=== PATIENT | female | born 1995 | race Caucasian/White ===

== ENCOUNTER → 2016-06-14 | Outpatient (CLI) | payer OTHER ==
--- NOTE | 2016-06-14 14:20 | MR ---
PRE AND POSTCONTRAST ENHANCED MRI OF THE BRAIN: CLINICAL HISTORY: Headaches CONTRAST: 20 ML Multihance Comparison 10/30/2006 Multiplanar and multispin-echo imaging of the brain was performed both before and after the administr ation of contrast. The ventricles, basal cisterns and sulci overlying the cerebral convexities are within normal limits. There is no evidence for midline shift or mass effect. Acute intracranial hemorrhage or extra-axial collection is not evident. There are no abnormal areas of increased or decreased signal intensity within the brain parenchyma. Following contrast administration, there is no evidence for pathologic enhancement or enhancing mass. The paranasal sinuses and mastoid air cells are well-aerated. IMPRESSION: Unremarkable pre and postcontrast enhanced MRI of the brain.
== END | disposition home or self-care (01) ==
LOC: RADMRIMAIN 13:17
PROVIDERS: ATTEND Psychiatry & Neurology Pain Medicine
DX: R51 Headache (principal)
CPT/HCPCS: 70553; A9577

== ENCOUNTER → 2017-06-10 | Outpatient (CLI) | payer OTHER ==
[2017-06-10 12:55] VITALS: BP 161/90; PULSE 75; RESP 16; TEMP 98.1; BMI 60.3
--- NOTE | 2017-07-12 16:51 | P.PN ---
Subjective Progress Note Date: 06/10/17 DATE: 06/10/2017 CHIEF COMPLAINT: Bariatric assessment HISTORY OF PRESENT ILLNESS: Britt Albarran is a 22-year-old female who presents with lifelong morbid obesity. She has developed comorbidities including bilateral knee osteoarthritis as well as chronic lower back pain, obstructive sleep apnea as well as hypertensive heart disease. She reports persistent right upper quadrant abdominal pain. She has a family history of gallbladder disease. She has intolerance to eating any foods. She is undergoing medical supervised weight loss and is now 9 months out. She was reports a family history of gastric cancer. Her highest weight was 395 pounds. Today she comes in weighing 388 pounds. She has gained 8 pounds in 3 months. At her height of 5 foot 7.25 inches, her ideal body weight is 158 pounds. She is 230 pounds overweight. Her highest body mass index was 61.5. Today her BMI is 60.4. PAST MEDICAL HISTORY: 1. Morbid obesity. 2. Body mass index 61.5, highest. 3. Irritable bowel syndrome. 4. Obstructive sleep apnea. 5. Osteoarthritis of the hips 6. Hypertensive heart disease. 7. Gastroesophageal reflux disease 8. Anxiety. 9. Depression. 10. Migraines. 11. Overactive bladder. 12. Chronic back pain. 13. Degenerative joint disease. 14. Asthma. PAST SURGICAL HISTORY: 1. No abdominal surgeries. 2. Eustachian tubes. HOME MEDICATIONS: 1. Zoloft. 2. Ultram. 3. Zonisamide. 4. Imitrex 5. Ditropan. 6. Levora. 7. Motrin. 8. Neurontin. 9. Fioricet. ALLERGIES: 1. Codeine 2. Soy 3. Tomato 4. Center 5. Peanut SOCIAL HISTORY: No active tobacco use. Has limited financial resources. She is currently in school. FAMILY HISTORY: No family history of ulcerative colitis disease or Crohn's disease. She does have a family history of morbid obesity. She denies any lupus in her family. No reports of stomach or esophageal cancer. She has a family history of diabetes. REVIEW OF ORGAN SYSTEMS: CONSTITUTIONAL: Her highest weight was 395 pounds. Today she comes in weighing 388 pounds. She has gained 8 pounds in 3 months. At her height of 5 foot 7.25 inches, her ideal body weight is 158 pounds. She is 230 pounds overweight. Her highest body mass index was 61.5. Today her BMI is 60.4. HEENT: Denies any active troubles with hearing. No troubles with swallowing. Wears glasses. ENDOCRINE: No diabetes. Has hypothyroidism. CARDIOVASCULAR: No reports of palpitations or heart attacks or chest pain. RESPIRATORY: Has daytime somnolence including snoring and sleep apnea. No asthma. GI: Denies any bright red blood per rectum or constipation. Does have gastroesophageal reflux disease as described above. MUSCULOSKELETAL: Has lower back pain and joint pain. Has osteoarthritis of the hips and knees. NEURO: Has headaches. No seizure disorders. PSYCH: Has depression without suicidal ideation. Has anxiety. RHEUMATOLOGIC: No lupus. No rheumatoid arthritis. HEMATOLOGIC: Denies any abnormal bleeding or bruising. No personal history of DVTs. SKIN: Has panniculitis. No skin cancer. PHYSICAL EXAM: VITAL SIGNS: Height 5 foot 7.25 inches, weight 388 pounds. BMI 60.4. Vital Signs Temp 98.1 F 06/10/17 12:53 Pulse 75 06/10/17 12:53 Resp 16 06/10/17 12:53 BP 161/90 06/10/17 12:53 Pulse Ox GENERAL: Well-developed female in no acute distress. HEENT: No scleral icterus. Extraocular movements grossly intact. Hears conversational speech. No nasal drainage. NECK: Supple without lymphadenopathy. Well-healed collar incision from previous thyroidectomy. CHEST: Nonlabored respirations with equal bilateral excursions. CARDIOVASCULAR: Regular rate. Distal 2+ pulses. ABDOMEN: Obese, soft, nondistended. Tender along the right upper quadrant. MUSCULOSKELETAL: No clubbing, cyanosis. 2+ pitting edema. Gross strength 5/5 distal lower extremities. NEURO: No focal or lateralizing signs. Cranial nerves 2 through 12 grossly within normal limits. PSYCH: Appropriate affect. Alert and oriented to person, place and time. SKIN: Good skin turgor. Well perfused. Has panniculitis. LABS: Vitamin D low. EKG: Demonstrates sinus arrhythmia. EGD FINDINGS: Squamocolumnar junction 40 cm from the incisors. Diaphragmatic hiatus at 40 cm. Hill grade 3 lower esophageal valve. LA grade A erosive esophagitis. No active duodenitis. Mild superficial gastritis. PATHOLOGY: Final Pathologic Diagnosis STOMACH, BIOPSY: CHRONIC GASTRITIS. HELICOBACTER IMMUNOPEROXIDASE STAIN IS PERFORMED TO EVALUATE FOR HELICOBACTER ORGANISMS AND IS NEGATIVE (CONTROLS APPROPRIATE). ASSESSMENT: 1. Morbid obesity. 2. Body mass index 61.5 down to 60.4. 3. Irritable bowel syndrome. 4. Obstructive sleep apnea. 5. Osteoarthritis of the hips 6. Hypertensive heart disease. 7. Gastroesophageal reflux disease 8. Anxiety. 9. Depression. 10. Migraines. 11. Overactive bladder. 12. Chronic back pain. 13. Degenerative joint disease. 14. Asthma. 15. Right upper quadrant abdominal pain. 16. Family history of gallbladder disease. 17. Chronic cholecystitis. PLAN: 1. With her symptoms including right upper quadrant abdominal pain, features suspicious for chronic cholecystitis. Robotic-assisted cholecystectomy was described with benefits and risks. 2. Recommend right upper quadrant ultrasound to evaluate for gallstones. 3. DVT prophylaxis. 4. Antibiotic prophylaxis. 5. Also recommend evaluation for sleep study. Objective - Vital Signs Vital signs: Vital Signs Temp 98.1 F 06/10/17 12:53 Pulse 75 06/10/17 12:53 Resp 16 06/10/17 12:53 BP 161/90 06/10/17 12:53 Pulse Ox Intake & Output 06/09/17 06/10/17 06/10/17 18:59 06:59 18:59 Weight 176.192 kg
== END | disposition home or self-care (01) ==
LOC: BARWHC3 12:29
PROVIDERS: ATTEND Surgery Plastic and Reconstructive Surgery
DX: E66.01 Morbid (severe) obesity due to excess calories (principal); K58.9 Irritable bowel syndrome, unspecified; G47.33 Obstructive sleep apnea (adult) (pediatric); M16.0 Bilateral primary osteoarthritis of hip; I11.9 Hypertensive heart disease without heart failure; K21.9 Gastro-esophageal reflux disease without esophagitis; F41.9 Anxiety disorder, unspecified; K90.49 Malabsorption due to intolerance, not elsewhere classified; M17.0 Bilateral primary osteoarthritis of knee; F32.9 Major depressive disorder, single episode, unspecified; J45.909 Unspecified asthma, uncomplicated; G43.909 Migraine, unspecified, not intractable, without status migrainosus; N32.81 Overactive bladder; G89.29 Other chronic pain; M19.90 Unspecified osteoarthritis, unspecified site; K81.1 Chronic cholecystitis; Z83.79 Family history of other diseases of the digestive system; Z79.891 Long term (current) use of opiate analgesic; Z79.1 Long term (current) use of non-steroidal anti-inflammatories (NSAID); Z79.899 Other long term (current) drug therapy; Z68.44 Body mass index [BMI] 60.0-69.9, adult; Z88.5 Allergy status to narcotic agent; Z91.010 Allergy to peanuts; Z91.018 Allergy to other foods
CPT/HCPCS: 99211

== ENCOUNTER → 2017-06-23 | Outpatient (CLI) | payer OTHER ==
[2017-06-23 13:49] LABS: Basophils % (A) 0 %; Eosinophils # (A) 0.1 k/uL (0-0.7); Eosinophils % (A) 1 %; HCT 44.4 % (34.0-46.0); HGB 14.2 gm/dL (11.4-16.0); Lymphocytes # (A) 2.2 k/uL (1.0-4.8); Lymphocytes % (A) 29 %; MCH 30.7 pg (25.0-35.0); MCV 96.1 fL (80.0-100.0); Mean Platelet Volume 8.7; Monocytes # (A) 0.3 k/uL (0-1.0); Monocytes % (A) 4 %; Neutrophils # (A) 4.9 k/uL (1.3-7.7); Neutrophils % (A) 65 %; Platelet Count 259 k/uL (150-450); RBC 4.62 m/uL (3.80-5.40); RDW 12.1 % (11.5-15.5); WBC 7.6 k/uL (3.8-10.6)
[2017-06-23 13:55] LABS: ALT 18 U/L (9-52); AST 21 U/L (14-36); Albumin 4.4 g/dL (3.5-5.0); Alkaline Phosphatase 69 U/L (38-126); Anion Gap 14 mmol/L; Blood Urea Nitrogen 13 mg/dL (7-17); Calcium 9.8 mg/dL (8.4-10.2); Carbon Dioxide 19 mmol/L (22-30); Chloride 110 mmol/L (98-107); Glucose 83 mg/dL (74-99); Potassium 4.3 mmol/L (3.5-5.1); Sodium 143 mmol/L (137-145); Total Bilirubin 0.4 mg/dL (0.2-1.3); Total Protein 7.3 g/dL (6.3-8.2)
== END | disposition home or self-care (01) ==
LOC: LABPAT 12:55
PROVIDERS: ATTEND Surgery Plastic and Reconstructive Surgery
DX: Z01.812 Encounter for preprocedural laboratory examination (principal)
CPT/HCPCS: 36415; 80053; 85025

== ENCOUNTER 2017-06-26 11:10 | Day surgery (SDC) | payer OTHER ==
[2017-06-23 12:28] VITALS: BMI 59.5
--- NOTE | 2017-06-26 07:17 | P.GSHP ---
History of Present Illness H&P Date: 06/26/17 CHIEF COMPLAINT: Cholecystitis HISTORY OF PRESENT ILLNESS: The patient is a 22-year-old female who presents with history of epigastric including right upper quadrant abdominal pain. She underwent diagnostic studies for her gallbladder. Separately her clinical picture was consistent with cholecystitis. Now she presents for surgical intervention. PAST MEDICAL HISTORY: Please see list PAST SURGICAL HISTORY: Please see list MEDICATIONS: Please see list ALLERGIES: Denies. SOCIAL HISTORY: No illicit drug use or recent tobacco use FAMILY HISTORY: Pertinent for gallbladder disease REVIEW OF ORGAN SYSTEMS: CONSTITUTIONAL: No reports of fevers or chills. HEENT: Denies any troubles with the vision or hearing. ENDOCRINE: No reports of hypothyroidism. No diabetes. RESPIRATORY: No recent pneumonias. CARDIOVASCULAR: Denies chest pain or palpitations GI: No blood in stools or constipation. MUSCULOSKELETAL: Has occasional joint pain including back pain. NEURO: No seizure disorders or headaches. No recent stroke. PSYCH: No depression or suicidal ideation. HEMATOLOGIC: No personal or family history of DVTs or pulmonary emboli. PHYSICAL EXAM: VITAL SIGNS: Afebrile vital signs stable GENERAL: Well-developed pleasant in no acute distress. HEENT: No scleral icterus. Extraocular movements grossly intact. Moist buccal mucosa. NECK: Supple without lymphadenopathy. CHEST: Unlabored respirations. Equal bilateral excursions. CARDIOVASCULAR: Regular rate regular rhythm rhythm. Distal 2+ pulses. ABDOMEN: Soft, nondistended. Tender along the epigastrium and right upper quadrant. MUSCULOSKELETAL: No clubbing, cyanosis, or edema. NEURO: Cranial nerves II to XII within normal limits. No focal or lateralizing signs. PSYCH: Alert and oriented to person, place and time. ASSESSMENT: 1. Epigastric and right upper quadrant abdominal pain 2. Chronic cholecystitis PLAN: 1. Will need a robotic laparoscopic cholecystectomy possible open. Benefits and risks were described. 2. Heparin for DVT prophylaxis 5000 units. 3. Antibiotic prophylaxis. Past Medical History Past Medical History: Asthma Additional Past Medical History / Comment(s): migraines, DDD, IBS, overactive bladder, chronic back pain, GALLBLADDER DISORDER, SEVERAL OUTBREAKS OF ANESTHESIA History of Any Multi-Drug Resistant Organisms: MRSA Date of last positivie culture/infection: 12/23/2016 MDRO Source:: LT INNER THIGH Past Surgical History: Ear Surgery Additional Past Surgical History / Comment(s): tubes in ears, EGD Past Anesthesia/Blood Transfusion Reactions: No Reported Reaction Smoking Status: Never smoker - Past Family History Mother Family Medical History: No Reported History Medications and Allergies Home Medications Medication Instructions Recorded Confirmed Type Butalb/Acetaminophen/Caffeine 1 tab PO Q8H PRN 04/29/14 06/23/17 History [Fioricet 50-325-40] Oxybutynin Chloride [Ditropan] 5 mg PO BID 04/29/14 06/23/17 History traMADol HCl [Ultram] 50 mg PO Q6H PRN 04/29/14 06/23/17 History Zonisamide [Zonisamide] 200 mg PO HS 04/06/15 06/23/17 History Gabapentin [Neurontin] 400 mg PO TID 03/18/16 06/23/17 History Levonorgestrel-Ethin Estradiol 1 tab PO DAILY 03/18/16 06/23/17 History [Levora-28 Tablet] SUMAtriptan SUCCINATE [Imitrex] 50 mg PO BID PRN 03/18/16 06/23/17 History Ibuprofen [Motrin] 800 mg PO Q6H PRN 03/11/17 06/23/17 History Sertraline HCl [Zoloft] 200 mg PO DAILY 03/11/17 06/23/17 History Loratadine [Claritin] 10 mg PO DAILY 04/29/17 06/23/17 History QUEtiapine [SEROquel] 50 mg PO HS 04/29/17 06/23/17 History Allergies Allergy/AdvReac Type Severity Reaction Status Date / Time codeine Allergy Dyspnea Verified 06/23/17 12:20 morphine AdvReac Dyspnea Verified 06/23/17 12:20
[~2017-06-26 11:10] MED LIST: ACETAMINOPHEN TAB 500 MG TAB PO ONE; DEXAMETHASONE SOD PHOSPHATE 10 MG/ML 1 ML VIAL IV ONE; HEPARIN SODIUM,PORCINE 5,000 UNIT/ML 1 ML VIAL SQ ONE; MIDAZOLAM 2 MG/2 ML VIAL IV PRN; ONDANSETRON 4 MG/2 ML VIAL IVP ONE; SCOPOLAMINE 1.5MG/72HR PATCH TRANSDERM STA
[2017-06-26] MEDS: LACTATED RINGERS 1,000 ML IV SCH ×2 (12:15→12:28)
[2017-06-26] MEDS ORDERED: LIDOCAINE 1% 20 ML VIAL (10MG/ML) FOR IV START INTRADERMA ONE (12:24)
[2017-06-26] MEDS ORDERED: fentaNYL (PF) 50 MCG/ML 2 ML AMP IV ONE (14:40)
[2017-06-26] MEDS ORDERED: PROPOFOL 10 MG/ML 20 ML VIAL IV ONE (15:32)
[2017-06-26] MEDS ORDERED: LIDOCAINE 1% INJ 10MG/ML (20 ML MDV) ONE (15:32)
[2017-06-26] MEDS ORDERED: MIDAZOLAM 2 MG/2 ML VIAL ONE (15:32)
[2017-06-26] MEDS ORDERED: SUCCINYLCHOLINE CHLORIDE VIAL 200 MG/10 ML VIAL IV ONE (15:32)
[2017-06-26] MEDS ORDERED: GLYCOPYRROLATE 0.2 MG/ML 2 ML VIAL ONE (15:32)
[2017-06-26] MEDS ORDERED: NEOSTIGMINE 1 MG/ML 10 ML VIAL ONE (15:32)
[2017-06-26] MEDS ORDERED: ROCURONIUM BROMIDE 10 MG/ML 10 ML VIAL IV ONE (15:32)
[2017-06-26] MEDS ORDERED: KETOROLAC 30 MG/ML 1 ML VIAL ONE (15:32)
[2017-06-26] MEDS ORDERED: fentaNYL (PF) 50 MCG/ML 2 ML AMP ONE (15:32)
[2017-06-26] MEDS ORDERED: BUPIVACAINE (PF) 0.25% 30 ML VIAL SQ ONE (15:50)
[2017-06-26] MEDS ORDERED: INDOCYANINE GREEN 25 MG VIAL IV STA (15:54)
[2017-06-26] MEDS ORDERED: LACTATED RINGERS 1,000 ML IV ONE (16:43)
--- NOTE | 2017-06-26 17:08 | P.PCN ---
Date of Procedure: 06/26/17 Preoperative Diagnosis: Chronic cholecystitis Postoperative Diagnosis: Same Procedure(s) Performed: Robotics assisted cholecystectomy Anesthesia: GETA, local Surgeon: Evie Garg Estimated Blood Loss (ml): 5 Pathology: other (Gallbladder) Condition: stable Disposition: floor Operative Findings: Defects along the left upper quadrant less than 10 mm in size
[2017-06-26] MEDS: HYDROmorphone 0.5 MG/0.5 ML SYRINGE IVP PRN ×4 (17:10→17:30)
[2017-06-26 17:17] VITALS: TEMP 98.6
[2017-06-26 17:36] VITALS: RESP 16
[2017-06-26] MEDS ORDERED: HYDROcodone/APAP 5-325MG 1 EACH TAB PO ONE (18:16)
[2017-06-26 18:27] VITALS: BP 154/83; PULSE 80
--- NOTE | 2017-07-09 23:17 | P.OP ---
Date of Procedure: 06/26/17 Description of Procedure: Date of Procedure: 06/26/17 SURGEON: TEZ GARG MD BRANCH ASSOCIATE TELLER: 1. ERIK HAMILTON 2. MARTIN GARCIA PREOPERATIVE DIAGNOSES: 1. Chronic cholecystitis. 2. Family history of gallbladder disease. 3. Morbid obesity due to excess calories. 4. Body mass index 59.5 5. Right upper quadrant abdominal pain. 6. Gastroesophageal reflux disease. 7. Depression. 8. Degenerative joint disease. POSTOPERATIVE DIAGNOSES: 1. Chronic cholecystitis. 2. Family history of gallbladder disease. 3. Morbid obesity due to excess calories. 4. Body mass index 59.5 5. Right upper quadrant abdominal pain. 6. Gastroesophageal reflux disease. 7. Depression. 8. Degenerative joint disease. OPERATION: Robotic-assisted da Olga Xi laparoscopic cholecystectomy, multiport with FIREFLY ESTIMATED BLOOD LOSS: 5 mL. SPECIMENS REMOVED: Gallbladder. COMPLICATIONS: None. Condition: stable Disposition: floor OPERATIVE FINDINGS: 1. Chronic cholecystitis INDICATIONS: The patient is a 22-year-old female who presents with chronic cholelcystitis. Surgical intervention with a laparoscopic cholecystectomy was described at length including injury to the biliary tree, bleeding, infection, need for further surgery. Informed consent was obtained. Robotic assisted laparoscopic approach was described. Benefits and risks of the procedure including but not limited to bleeding, infection, injury to the biliary tree was described. Informed consent was obtained. DESCRIPTION OF PROCEDURE: Patient was brought to the operating room, placed in supine position. After general induction, the abdomen had been prepped and draped in standard sterile fashion. The robotic da Olga XI system was primed. After a timeout protocol was performed, the patient had been prepped and draped in standard sterile fashion. The patient was injected with indocyanine green. The robot was docked along the left lateral abdomen. The patient was repositioned in reverse Trendelenburg position. Please note prior to docking of the robot; however, a 5 mm 0 degrees laparoscopic trocar entry was performed along the left upper quadrant. Next, two 8 mm robotic ports were placed along the right upper abdomen. The camera 8-mm port was maintained along the epigastrium. Another 8 mm port was placed along the left upper abdominal wall after exchanging the 5 mm port. Please note that the ports were placed at least 10 to 15 cm away from the target anatomy of the gallbladder. Using a grasper for arm 3, a grasper for arm 2, including hook cautery for arm 1 , the robotic system was docked and primed as described. Instruments were interchanged by the information technology assistant including hook cautery, Bovie cautery scissors and clip appliers. I had sat at the console. Adhesions were identified along the infundibulum of the gallbladder and addressed using hook cautery. The gallbladder fundus was retracted over the dome of the liver. Initial attention was brought to the infundibulum which was gently retracted in the inferior lateral approach. Using a grasper, the cystic duct including the cystic artery was carefully skeletonized. FIREFLY was used to identify the cystic artery and cystic structures. Using a clip paper box maker 2 large PLASTIC clips were placed proximally, and 1 clip was placed distally along the cystic duct and then cauterized with the cautery. Again care was taken to avoid any injury to the biliary tree as the common bile duct was clearly visualized during this portion of dissection. Next, the cystic artery was cauterized. Electro-Bovie cautery was used to remove the gallbladder from the hepatic fossa. Hemostasis was checked and found to be adequate. The robot was undocked. I re-scrubbed into the case. Using a 10 mm Endo Catch bag via the left upper quadrant incision, the specimen was removed from the abdominal cavity. All pneumoperitoneum instruments were evacuated from the abdominal cavity. The incisions were reapproximated using 4-0 Monocryl in an interrupted subcuticular fashion. Fascial defect was less than 8 mm in size. Please note along the trocar sites, local anesthetic was placed as a field block prior to insertion of all instruments. Dermabond was applied to the skin. At the end of the procedure needle, sponge, and instrument count had been verified correct by the surgical assistant. The patient was transferred to postanesthesia care unit in stable condition. Intraoperative films were shared with the patient's family who were very pleased with the level of care. Console time 16 minutes Plan - Discharge Summary Discharge Rx Participant: Yes New Discharge Prescriptions: New HYDROcodone/APAP 5-325MG [[place] 5-325] 1 tab PO Q6HR PRN #15 tab PRN Reason: Pain Ibuprofen [Motrin] 600 mg PO Q8HR PRN #20 tab PRN Reason: Pain Continue Butalb/Acetaminophen/Caffeine [Fioricet 50-325-40] 1 tab PO Q8H PRN PRN Reason: Headache Oxybutynin Chloride [Ditropan] 5 mg PO BID traMADol HCl [Ultram] 50 mg PO Q6H PRN PRN Reason: Pain Zonisamide 200 mg PO HS Levonorgestrel-Ethin Estradiol [Levora-28 Tablet] 1 tab PO DAILY Gabapentin [Neurontin] 400 mg PO TID SUMAtriptan SUCCINATE [Imitrex] 50 mg PO BID PRN PRN Reason: Migraine Headache Ibuprofen [Motrin] 800 mg PO Q6H PRN PRN Reason: Pain Sertraline HCl [Zoloft] 200 mg PO DAILY Loratadine [Claritin] 10 mg PO DAILY QUEtiapine [SEROquel] 50 mg PO HS No Action Ergocalciferol [Vitamin D2 (DRISDOL)] 50,000 unit PO Q7D #12 cap Discharge Medication List Butalb/Acetaminophen/Caffeine [Fioricet 50-325-40] 1 tab PO Q8H PRN 04/29/14 [ History] Oxybutynin Chloride [Ditropan] 5 mg PO BID 04/29/14 [History] traMADol HCl [Ultram] 50 mg PO Q6H PRN 04/29/14 [History] Zonisamide 200 mg PO HS 04/06/15 [History] Gabapentin [Neurontin] 400 mg PO TID 03/18/16 [History] Levonorgestrel-Ethin Estradiol [Levora-28 Tablet] 1 tab PO DAILY 03/18/16 [ History] SUMAtriptan SUCCINATE [Imitrex] 50 mg PO BID PRN 03/18/16 [History] Ibuprofen [Motrin] 800 mg PO Q6H PRN 03/11/17 [History] Sertraline HCl [Zoloft] 200 mg PO DAILY 03/11/17 [History] Loratadine [Claritin] 10 mg PO DAILY 04/29/17 [History] QUEtiapine [SEROquel] 50 mg PO HS 04/29/17 [History] HYDROcodone/APAP 5-325MG [[place] 5-325] 1 tab PO Q6HR PRN #15 tab 06/26/17 [Rx] Ibuprofen [Motrin] 600 mg PO Q8HR PRN #20 tab 06/26/17 [Rx] Ergocalciferol [Vitamin D2 (DRISDOL)] 50,000 unit PO Q7D #12 cap 07/01/17 [Rx] Follow up Appointment(s)/Referral(s): Tez Garg MD [STAFF PHYSICIAN] - [facility],. [NON-STAFF] - 07/01/17 Patient Instructions/Handouts: *Surgery [facility] - (Anesthesia) Discharge Instructions Outpatient Surgery, Laparoscopic Cholecystectomy (DC) Activity/Diet/Wound Care/Special Instructions: May shower. No bath tub soaks. No lifting over 4 pounds in 1 week. Discharge Disposition: HOME SELF-CARE
== END 2017-06-26 18:57 | disposition home or self-care (01) ==
LOC: OR 11:10
PROVIDERS: ATTEND Surgery Plastic and Reconstructive Surgery
DX: K81.1 Chronic cholecystitis (principal); K21.9 Gastro-esophageal reflux disease without esophagitis; Z83.79 Family history of other diseases of the digestive system; G43.909 Migraine, unspecified, not intractable, without status migrainosus; F32.9 Major depressive disorder, single episode, unspecified; K58.9 Irritable bowel syndrome, unspecified; N32.81 Overactive bladder; G89.29 Other chronic pain; M54.9 Dorsalgia, unspecified; J45.909 Unspecified asthma, uncomplicated; E66.01 Morbid (severe) obesity due to excess calories; Z68.43 Body mass index [BMI] 50.0-59.9, adult; Z79.3 Long term (current) use of hormonal contraceptives; Z79.899 Other long term (current) drug therapy; Z88.5 Allergy status to narcotic agent
CPT/HCPCS: 47562; S2900; 86850; 86900; 86901; 88304

== ENCOUNTER → 2017-07-01 | Outpatient (CLI) | payer OTHER ==
[2017-07-01 14:22] VITALS: PULSE 85; TEMP 98.7; BMI 58.3
--- NOTE | 2017-07-01 14:55 | P.PN ---
Progress Note - Text Progress Note Date: 07/01/17 To whom it may concern: Britt Albarran is under my surgical care. She may return to school with no lifting over 10 pounds in 2 weeks. She cannot pull, mop, sweep in this time frame. Regards, Evie Garg MD
[2017-07-01 14:59] VITALS: BP 130/85
--- NOTE | 2017-07-12 16:57 | P.PN ---
Subjective Progress Note Date: 07/01/17 DATE: 07/01/2017 CHIEF COMPLAINT: Follow-up cholecystectomy HISTORY OF PRESENT ILLNESS: Britt Albarran is a 22-year-old female who is status post cholecystectomy to 2017. She reports feeling sore along her left upper quadrant. She's been doing much better since her gallbladder removal. She had the influenza. Her diarrhea has improved. She is tolerating diet. Her highest weight was 395 pounds. Today she comes in weighing 374 pounds. She has gained 13 pounds in 3 weeks. At her height of 5 foot 7.25 inches, her ideal body weight is 158 pounds. She is 216 pounds overweight. Her highest body mass index was 61.5. Today her BMI is 58.3. PHYSICAL EXAM: VITAL SIGNS: Height 5 foot 7.25 inches, weight 388 pounds. BMI 60.4. Vital Signs Temp 98.7 F 07/01/17 14:17 Pulse 85 07/01/17 14:17 Resp BP 130/85 07/01/17 14:17 Pulse Ox GENERAL: Well-developed female in no acute distress. HEENT: No scleral icterus. Extraocular movements grossly intact. Hears conversational speech. No nasal drainage. NECK: Supple without lymphadenopathy. Well-healed collar incision from previous thyroidectomy. CHEST: Nonlabored respirations with equal bilateral excursions. CARDIOVASCULAR: Regular rate. Distal 2+ pulses. ABDOMEN: Obese, soft, nondistended. Tender along the left upper quadrant. No signs of infection. Also addressed. MUSCULOSKELETAL: No clubbing, cyanosis. 2+ pitting edema. Gross strength 5/5 distal lower extremities. NEURO: No focal or lateralizing signs. Cranial nerves 2 through 12 grossly within normal limits. PSYCH: Appropriate affect. Alert and oriented to person, place and time. SKIN: Good skin turgor. Well perfused. PATHOLOGY: Chronic cholecystitis ASSESSMENT: 1. Morbid obesity. 2. Body mass index 61.5 down to 58.3 3. Irritable bowel syndrome. 4. Obstructive sleep apnea. 5. Osteoarthritis of the hips 6. Hypertensive heart disease. 7. Gastroesophageal reflux disease 8. Anxiety. 9. Depression. 10. Migraines. 11. Overactive bladder. 12. Chronic back pain. 13. Degenerative joint disease. 14. Asthma. 15. Chronic cholecystitis. PLAN: 1. Recommend recovery of weight lifting restrictions for 1-2 weeks. 2. She'll continue a medical supervised weight loss. 3. Recommend start a multivitamin. 4. Follow up upon completion of her bariatric profile. Objective - Vital Signs Vital signs: Vital Signs Temp 98.7 F 07/01/17 14:17 Pulse 85 07/01/17 14:17 Resp BP Pulse Ox Intake & Output 06/30/17 07/01/17 07/01/17 18:59 06:59 18:59 Weight 170.142 kg
== END | disposition home or self-care (01) ==
LOC: BARWHC3 13:32
PROVIDERS: ATTEND Surgery Plastic and Reconstructive Surgery
DX: E66.01 Morbid (severe) obesity due to excess calories (principal); K58.9 Irritable bowel syndrome, unspecified; G47.33 Obstructive sleep apnea (adult) (pediatric); M16.11 Unilateral primary osteoarthritis, right hip; I11.9 Hypertensive heart disease without heart failure; K21.9 Gastro-esophageal reflux disease without esophagitis; F41.9 Anxiety disorder, unspecified; G43.909 Migraine, unspecified, not intractable, without status migrainosus; N32.81 Overactive bladder; G89.29 Other chronic pain; M54.9 Dorsalgia, unspecified; J45.909 Unspecified asthma, uncomplicated; K81.9 Cholecystitis, unspecified; M16.0 Bilateral primary osteoarthritis of hip; Z68.43 Body mass index [BMI] 50.0-59.9, adult
CPT/HCPCS: 99211

== ENCOUNTER → 2017-11-10 | Outpatient (CLI) | payer OTHER ==
--- NOTE | 2017-11-10 19:11 | CONS ---
CONSULTATION This is a consultation note for sleep apnea. A 22-year-old, morbidly obese female patient who is undergoing surgical evaluation for weight loss and she is interested in bariatric surgery. The patient was referred to me knowing that she has obvious symptoms and features of obstructive sleep apnea. The patient has chronic anxiety and depression. She also has chronic pain and her sleep has been fragmented for many years and she wakes up every 30 minutes to an hour and she wakes up very tired and sleepy during the day. She typically goes to bed around 9:00 to 11:00 p.m. and she wakes up at 2:00 a.m., 4:00 a.m., 5:00 a.m. and 6:00 a.m. She sleeps around 6 or 7 hours. She snores very loudly. She stops breathing. She has excessive fatigue and tiredness during the day. She wakes up choking and occasionally gasping for air. She grinds her teeth. She has a dry mouth in the morning. She has chronic heartburn in addition. During the day, she feels tired and sleepy. She has problems with concentration, irritability, depression and anxiety and claustrophobia. She has steady weight gain over the years and she has gained more than 100 pounds over the past 10 years. She has positive family history of obstructive sleep apnea. No substance abuse. PAST MEDICAL HISTORY: Morbid obesity, depression, anxiety, panic attack, environmental allergies, chronic pain and migraine headaches and overactive bladder. PAST SURGICAL HISTORY: Includes tubes in the ears and cholecystectomy. DRUG ALLERGIES: Not known other than CODEINE. She has also allergy to PEANUTS. OUTPATIENT MEDICATION: List includes: 1. Seroquel 50 mg p.o. daily. 2. Abilify 2 mg p.o. daily. 3. Clonidine 0.1 mg once a day. 4. Ibuprofen 800 mg every 8 hours. 5. Gabapentin 600 mg p.o. daily. 6. Ranitidine 150 mg p.o. daily. 7. Tramadol 50 mg p.o. daily. 8. Loratadine 10 mg p.o. daily. 9. Zoloft 100 mg p.o. daily. 10.Oxybutynin 10 mg p.o. daily. 11.She is also on Imitrex on an as-needed basis. FAMILY HISTORY: Mother has obstructive sleep apnea. She has undergone UPPP and she has used CPAP. Her mother has also undergone bariatric surgery. REVIEW OF SYSTEMS: A 12-point review of systems was done. Positive findings are mentioned above in history of present illness. BP is 116/91, pulse 74, respirations 16, temperature is 98.6, saturation 98% on room air. Height is 5 feet 7 inches. Weight is 375, BMI 57.8. Neck size 16 inches. GENERAL APPEARANCE: Calm, comfortable. No acute distress. Head is atraumatic, normocephalic. Neck is supple. There is no JVD. No goiter or neck masses. Mallampati class IV. LUNGS: Diminished breath sounds, especially in the lung bases, otherwise clear. HEART: Sounds are regular rate and rhythm. Normal S1, S2. No S3. No murmurs. Abdomen is morbidly obese, soft, nontender. Organs cannot be adequately palpated. EXTREMITIES: Trace edema. There is no cyanosis or clubbing. NEUROLOGIC: OA x3. There are no focal neurological deficits. SKIN: Negative for any wounds or ulceration. IMPRESSION: 1. Obstructive sleep apnea clinically suspected, currently under investigation. 2. Loud snoring. 3. Morbid obesity with a BMI of 57.8. 4. There is sleep fragmentation in part related to her comorbidities which include anxiety and depression, chronic pain and her irritable bladder. This could be also partly related to underlying potential sleep apnea. This needs to be further investigated. 5. Depression. 6. Anxiety. 7. Chronic pain. 8. Maintained on narcotic agents, including tramadol and ibuprofen. 9. Migraines. 10.Overactive bladder. PLAN: Proceed with a screening polysomnogram to evaluate this patient for obstructive sleep apnea. Note that the patient has multiple other comorbidities that could fragment her sleep in general and sleep apnea could be one of these comorbidities that needs to be further investigated. Encourage weight loss. Proceed with bariatric surgery evaluation. We will continue to follow. MMODL / IJN: [id number] /
== END | disposition home or self-care (01) ==
LOC: SLEEP 15:35
PROVIDERS: ATTEND Internal Medicine Critical Care Medicine
DX: R06.83 Snoring (principal); E66.9 Obesity, unspecified; F41.9 Anxiety disorder, unspecified; F32.9 Major depressive disorder, single episode, unspecified; G89.29 Other chronic pain; G43.909 Migraine, unspecified, not intractable, without status migrainosus; N32.81 Overactive bladder; Z79.899 Other long term (current) drug therapy; Z68.43 Body mass index [BMI] 50.0-59.9, adult; Z79.1 Long term (current) use of non-steroidal anti-inflammatories (NSAID); Z79.891 Long term (current) use of opiate analgesic; Z88.5 Allergy status to narcotic agent; Z91.010 Allergy to peanuts
CPT/HCPCS: 99211

== ENCOUNTER → 2017-11-23 | Outpatient (CLI) | payer OTHER ==
[2017-11-23 14:37] VITALS: BMI 57.6
== END | disposition home or self-care (01) ==
LOC: BARWHC3 08:42
PROVIDERS: ATTEND Surgery Plastic and Reconstructive Surgery
DX: E66.01 Morbid (severe) obesity due to excess calories (principal); Z68.43 Body mass index [BMI] 50.0-59.9, adult
CPT/HCPCS: 97804

== ENCOUNTER 2018-01-02 16:08 | Emergency (ER) | payer OTHER ==
[2018-01-02 16:18] VITALS: RESP 18
[2018-01-02] MEDS ORDERED: KETOROLAC 30 MG/ML 1 ML VIAL IVP STA (16:31)
[2018-01-02] MEDS ORDERED: METOCLOPRAMIDE 5 MG/ML 2 ML VIAL IVP STA (16:31)
[2018-01-02] MEDS ORDERED: SODIUM CHLORIDE 0.9% 1,000 ML IV ONE (16:31)
[2018-01-02] MEDS ORDERED: diphenhydrAMINE 50 MG/ML 1 ML VIAL IVP STA (16:31)
--- NOTE | 2018-01-02 16:38 | ED ---
Headache HPI - General Chief Complaint: Headache Stated Complaint: migraine Time Seen by Provider: 01/02/18 16:22 Source: patient, RN notes reviewed Mode of arrival: ambulatory Limitations: no limitations - History of Present Illness Initial Comments: 22-year-old female presents emergency Department chief complaint migraine headache. Patient has chronic migraines to seek Dr. Delgado for neurology. Patient states this is her typical headache which is diffuse in nature. She states that she's taken her max dose of Imitrex and fierce that with no relief. Patient states his been 2 days of constant headache with mild nausea no vomiting. She does have some photosensitivity. Patient denies any focal weakness, neck pain, fever, chills. Patient states she has occasionally had, the hospital for her migraine headaches. Patient denies any chance . - Related Data Home Medications Medication Instructions Recorded Confirmed Butalb/Acetaminophen/Caffeine 1 tab PO Q8H PRN 04/29/14 11/23/17 [Fioricet 50-325-40] Oxybutynin Chloride [Ditropan] 5 mg PO BID 04/29/14 11/23/17 traMADol HCl [Ultram] 50 mg PO Q6H PRN 04/29/14 11/23/17 Zonisamide 200 mg PO HS 04/06/15 11/23/17 Gabapentin [Neurontin] 400 mg PO TID 03/18/16 11/23/17 SUMAtriptan SUCCINATE [Imitrex] 50 mg PO BID PRN 03/18/16 11/23/17 Ibuprofen [Motrin] 800 mg PO Q6H PRN 03/11/17 11/23/17 Sertraline HCl [Zoloft] 200 mg PO DAILY 03/11/17 11/23/17 Loratadine [Claritin] 10 mg PO DAILY 04/29/17 11/23/17 QUEtiapine [SEROquel] 50 mg PO HS 04/29/17 11/23/17 cloNIDine [Catapres-TTS] 0.1 mg PO DAILY 11/10/17 11/23/17 Previous Rx's Medication Instructions Recorded Ergocalciferol [Vitamin D2 50,000 unit PO Q7D #12 cap 07/01/17 (DRISDOL)] Allergies Allergy/AdvReac Type Severity Reaction Status Date / Time codeine Allergy Dyspnea Verified 01/02/18 16:18 morphine AdvReac Dyspnea Verified 01/02/18 16:18 Review of Systems ROS Statement: Those systems with pertinent positive or pertinent negative responses have been documented in the HPI. ROS Other: All systems not noted in ROS Statement are negative. Past Medical History Past Medical History: Asthma Additional Past Medical History / Comment(s): migraines, DDD, IBS, overactive bladder, chronic back pain, GALLBLADDER DISORDER, SEVERAL OUTBREAKS OF ANESTHESIA History of Any Multi-Drug Resistant Organisms: MRSA Date of last positivie culture/infection: 12/23/2016 MDRO Source:: LT INNER THIGH Past Surgical History: Cholecystectomy, Ear Surgery Additional Past Surgical History / Comment(s): tubes in ears, EGDlap choly Past Anesthesia/Blood Transfusion Reactions: No Reported Reaction Past Psychological History: Depression Smoking Status: Never smoker Past Alcohol Use History: None Reported Past Drug Use History: None Reported - Past Family History Mother Family Medical History: No Reported History General Exam Limitations: no limitations General appearance: alert, in no apparent distress Head exam: Present: atraumatic, normocephalic, normal inspection Eye exam: Present: normal appearance, PERRL, EOMI. Absent: scleral icterus, conjunctival injection, periorbital swelling ENT exam: Present: normal exam, normal oropharynx, mucous membranes moist, TM's normal bilaterally, normal external ear exam Neck exam: Present: normal inspection, full ROM. Absent: tenderness, meningismus, lymphadenopathy Respiratory exam: Present: normal lung sounds bilaterally. Absent: respiratory distress, wheezes, rales, rhonchi, stridor Cardiovascular Exam: Present: regular rate, normal rhythm, normal heart sounds. Absent: systolic murmur, diastolic murmur, rubs, gallop, clicks Neurological exam: Present: alert, oriented X3, CN II-XII intact, reflexes normal, other (Finger to nose intact bilaterally without overshooting). Absent : motor sensory deficit Skin exam: Present: warm, dry, intact, normal color. Absent: rash Course Vital Signs 01/02/18 16:16 Temperature 98.7 F Pulse Rate 68 Respiratory 18 Rate Blood Pressure 161/96 O2 Sat by Pulse 99 Oximetry Medical Decision Making - Medical Decision Making 22-year-old female presented for migraine headache. Patient given IV medications in which her symptoms have resolved. Patient states that she feels comfortable going home at this time and she'll follow-up with neurologist return for any worsening symptoms. Disposition Clinical Impression: Migraine Disposition: HOME SELF-CARE Condition: Stable Instructions: Acute Headache (ED) Additional Instructions: Please return to the Emergency Department if symptoms worsen or any other concerns. Is patient prescribed a controlled substance at d/c from ED?: No Referrals: Parminder Torres DO [Primary Care Provider] - 1-2 days Time of Disposition: 17:38
[2018-01-02 17:53] VITALS: BP 133/69; PULSE 59; TEMP 97.8
== END 2018-01-02 17:51 | disposition home or self-care (01) ==
LOC: EC 16:08
DX: G43.909 Migraine, unspecified, not intractable, without status migrainosus (principal); Z79.899 Other long term (current) drug therapy; Z88.5 Allergy status to narcotic agent
CPT/HCPCS: 99283; 96374; 96375 ×2; 96361; J1200; J2765; J1885

== ENCOUNTER → 2018-01-27 | Outpatient (CLI) | payer OTHER ==
--- NOTE | 2018-01-27 14:52 | P.PN ---
Subjective Progress Note Date: 01/27/18 DATE: 01/27/2018 CHIEF COMPLAINT: Bariatric assessment HISTORY OF PRESENT ILLNESS: Britt Albarran is a 22-year-old female who presents with lifelong morbid obesity. She has developed comorbidities including bilateral knee osteoarthritis, chronic lower back pain, obstructive sleep apnea as well as hypertensive heart disease. She is looking into bariatric procedure particularly gastric bypass. She has completed medical supervised weight loss. She reports doing well. She comes in with her mother. She is looking into the gastric bypass. Her highest weight was 395 pounds. Today she comes in weighing 361 pounds from 388 pounds, 8 months ago. She has lost 26 pounds in 8 months. At her height of 5 foot 7.25 inches, her ideal body weight is 158 pounds. She is 203 pounds overweight. Her highest body mass index was 61.5. Today her BMI is 56.3. PAST MEDICAL HISTORY: 1. Morbid obesity. 2. Body mass index 61.5, highest. 3. Irritable bowel syndrome. 4. Obstructive sleep apnea. 5. Osteoarthritis of the hips 6. Hypertensive heart disease. 7. Gastroesophageal reflux disease 8. Anxiety. 9. Depression. 10. Migraines. 11. Overactive bladder. 12. Chronic back pain. 13. Degenerative joint disease. 14. Asthma. PAST SURGICAL HISTORY: 1. Cholecystectomy 2. Eustachian tubes. 3. Upper endoscopy HOME MEDICATIONS: 1. Zoloft. 2. Ultram. 3. Zonisamide. 4. Imitrex 5. Ditropan. 6. Levora. 7. Motrin. 8. Neurontin. 9. Fioricet. ALLERGIES: 1. Codeine 2. Soy 3. Tomato 4. [place] 5. Peanut SOCIAL HISTORY: No active tobacco use. Has limited financial resources. She is currently in school. FAMILY HISTORY: No family history of ulcerative colitis disease or Crohn's disease. She does have a family history of morbid obesity. She denies any lupus in her family. No reports of stomach or esophageal cancer. She has a family history of diabetes. REVIEW OF ORGAN SYSTEMS: CONSTITUTIONAL: Her highest weight was 395 pounds. Today she comes in weighing 361 pounds from 388 pounds, 8 months ago. She has lost 26 pounds in 8 months. At her height of 5 foot 7.25 inches, her ideal body weight is 158 pounds. She is 203 pounds overweight. Her highest body mass index was 61.5. Today her BMI is 56.3. HEENT: Denies any active troubles with hearing. No troubles with swallowing. Wears glasses. ENDOCRINE: No diabetes. Has hypothyroidism. CARDIOVASCULAR: No reports of palpitations or heart attacks or chest pain. RESPIRATORY: Has daytime somnolence including snoring and sleep apnea. No asthma. GI: Denies any bright red blood per rectum or constipation. Does have gastroesophageal reflux disease as described above. MUSCULOSKELETAL: Has lower back pain and joint pain. Has osteoarthritis of the hips and knees. NEURO: Has headaches. No seizure disorders. PSYCH: Has depression without suicidal ideation. Has anxiety. RHEUMATOLOGIC: No lupus. No rheumatoid arthritis. HEMATOLOGIC: Denies any abnormal bleeding or bruising. No personal history of DVTs. SKIN: Has panniculitis. No skin cancer. PHYSICAL EXAM: VITAL SIGNS: Height 5 foot 7.25 inches, weight 361 pounds. BMI 56.3 Vital Signs Temp 98.5 F 01/27/18 15:05 Pulse 83 01/27/18 15:05 Resp BP 119/87 01/27/18 15:05 Pulse Ox GENERAL: Well-developed female in no acute distress. HEENT: No scleral icterus. Extraocular movements grossly intact. Hears conversational speech. No nasal drainage. NECK: Supple without lymphadenopathy. Well-healed collar incision from previous thyroidectomy. CHEST: Nonlabored respirations with equal bilateral excursions. CARDIOVASCULAR: Regular rate. Distal 2+ pulses. ABDOMEN: Obese, soft, nondistended. Tender along the right upper quadrant. MUSCULOSKELETAL: No clubbing, cyanosis. 2+ pitting edema. Gross strength 5/5 distal lower extremities. NEURO: No focal or lateralizing signs. Cranial nerves 2 through 12 grossly within normal limits. PSYCH: Appropriate affect. Alert and oriented to person, place and time. SKIN: Good skin turgor. Well perfused. Has panniculitis. ASSESSMENT: 1. Morbid obesity. 2. Body mass index 61.5 down to 56.3. 3. Irritable bowel syndrome. 4. Obstructive sleep apnea. 5. Osteoarthritis of the hips 6. Hypertensive heart disease. 7. Gastroesophageal reflux disease 8. Anxiety. 9. Depression. 10. Migraines. 11. Overactive bladder. 12. Chronic back pain. 13. Degenerative joint disease. 14. Asthma. PLAN: 1. Consent for gastric bypass described 2. Recommended dietary classes. 3. Will need type and screen 4. Robotic assisted approach described. 5. The [place] [facility] Data was also reviewed with benefits and risks as described. 6. An 8 page second-generation bariatric consent form was reviewed in detail including potential of bleeding, infection, leaks, adequate weight loss, nutritional deficiencies which he demonstrated understanding of the risks. 7. A 2 week high-protein low caloric 800 kcal diet described to address hepatomegaly. 8. Preoperative labs including complete metabolic panel and CBC with type and screen recommended. 9. DVT prophylaxis per [place] [facility]. 10. Antibiotic prophylaxis. 11. Inpatient hospitalization anticipated for more than 2 nights. 12. All questions and concerns were addressed with the patient.
[2018-01-27 15:49] VITALS: BP 119/87; PULSE 83; TEMP 98.5; BMI 56.2
== END | disposition home or self-care (01) ==
LOC: BARWHC3 13:28
PROVIDERS: ATTEND Surgery Plastic and Reconstructive Surgery
DX: E66.01 Morbid (severe) obesity due to excess calories (principal); K21.9 Gastro-esophageal reflux disease without esophagitis; M17.0 Bilateral primary osteoarthritis of knee; G89.29 Other chronic pain; M54.5 Low back pain; G47.33 Obstructive sleep apnea (adult) (pediatric); I11.9 Hypertensive heart disease without heart failure; K58.9 Irritable bowel syndrome, unspecified; M16.0 Bilateral primary osteoarthritis of hip; F41.9 Anxiety disorder, unspecified; F32.9 Major depressive disorder, single episode, unspecified; G43.909 Migraine, unspecified, not intractable, without status migrainosus; N32.81 Overactive bladder; M19.90 Unspecified osteoarthritis, unspecified site; J45.909 Unspecified asthma, uncomplicated; Z90.49 Acquired absence of other specified parts of digestive tract; Z98.890 Other specified postprocedural states; Z79.1 Long term (current) use of non-steroidal anti-inflammatories (NSAID); Z79.899 Other long term (current) drug therapy; Z79.891 Long term (current) use of opiate analgesic; Z88.5 Allergy status to narcotic agent; Z91.018 Allergy to other foods; Z68.43 Body mass index [BMI] 50.0-59.9, adult
CPT/HCPCS: 99211

== ENCOUNTER → 2018-02-02 | Outpatient (CLI) | payer OTHER ==
[2018-02-02 17:56] LABS: Basophils % (A) 0 %; Eosinophils # (A) 0.1 k/uL (0-0.7); Eosinophils % (A) 2 %; HCT 42.6 % (34.0-46.0); HGB 14.2 gm/dL (11.4-16.0); Lymphocytes # (A) 1.4 k/uL (1.0-4.8); Lymphocytes % (A) 22 %; MCH 30.9 pg (25.0-35.0); MCHC 33.3 g/dL (31.0-37.0); MCV 92.7 fL (80.0-100.0); Mean Platelet Volume 9.2; Monocytes # (A) 0.3 k/uL (0-1.0); Monocytes % (A) 4 %; Neutrophils # (A) 4.7 k/uL (1.3-7.7); Neutrophils % (A) 71 %; Platelet Count 227 k/uL (150-450); RBC 4.59 m/uL (3.80-5.40); RDW 12.1 % (11.5-15.5); WBC 6.6 k/uL (3.8-10.6)
[2018-02-02 18:06] LABS: ALT 32 U/L (9-52); AST 35 U/L (14-36); Albumin 4.4 g/dL (3.5-5.0); Alkaline Phosphatase 78 U/L (38-126); Anion Gap 12 mmol/L; Blood Urea Nitrogen 10 mg/dL (7-17); Calcium 9.8 mg/dL (8.4-10.2); Carbon Dioxide 19 mmol/L (22-30); Chloride 109 mmol/L (98-107); Glucose 92 mg/dL (74-99); Potassium 4.5 mmol/L (3.5-5.1); Sodium 140 mmol/L (137-145); Total Bilirubin 0.5 mg/dL (0.2-1.3); Total Protein 7.3 g/dL (6.3-8.2)
== END | disposition home or self-care (01) ==
LOC: LABWHC1 17:24
PROVIDERS: ATTEND Surgery Plastic and Reconstructive Surgery
DX: Z01.812 Encounter for preprocedural laboratory examination (principal)
CPT/HCPCS: 36415; 80053; 85025

== ENCOUNTER 2018-02-08 08:56 | Inpatient (IN) | payer OTHER ==
[~2018-02-08 08:56] MED LIST changes: -ACETAMINOPHEN TAB 500 MG TAB PO ONE; -DEXAMETHASONE SOD PHOSPHATE 10 MG/ML 1 ML VIAL IV ONE; -HEPARIN SODIUM,PORCINE 5,000 UNIT/ML 1 ML VIAL SQ ONE; +LACTATED RINGERS 1,000 ML IV SCH; -ONDANSETRON 4 MG/2 ML VIAL IVP ONE; +SCOPOLAMINE 1.5MG/72HR PATCH TRANSDERM ONE; -SCOPOLAMINE 1.5MG/72HR PATCH TRANSDERM STA; +fentaNYL (PF) 50 MCG/ML 2 ML AMP IV PRN
[2018-02-08] MEDS ORDERED: CHLORHEXIDINE GLUCONATE 15 ML CUP MUCOUS MEM STA (09:18)
[2018-02-08] MEDS: DEXAMETHASONE SOD PHOSPHATE 10 MG/ML 1 ML VIAL IV ONE ×2 (09:36→16:25)
[2018-02-08] MEDS: ONDANSETRON 4 MG/2 ML VIAL IVP ONE ×2 (09:36→16:26)
[2018-02-08] MEDS: PANTOPRAZOLE 40 MG/10 ML VIAL IV STA ×2 (09:40→16:27)
[2018-02-08] MEDS: ENOXAPARIN 40 MG/0.4 ML SYRINGE SQ STA ×2 (09:41→16:26)
--- NOTE | 2018-02-08 09:47 | P.GSHP ---
History of Present Illness H&P Date: 02/08/18 CHIEF COMPLAINT: Morbid Obesity HISTORY OF PRESENT ILLNESS: Britt Albarran is a 22-year-old female who presents with morbid obesity. Her highest weight was 395 pounds last year. At her height of 5 foot 7.25 inches, her ideal body weight is 158 pounds. She is 221 pounds overweight. Her highest body mass index was 61.5. As a result of her obesity, she has developed osteoarthritis of her joints including obstructive sleep apnea and hypertension. She reports being on caloric restriction for weight control with her most weight loss of 50 pounds. As a result of her obesity she has developed back pain including knee pain. She has required steroid injections to her back with minimal improvement. She comes in for evaluation for gastric bypass. PAST MEDICAL HISTORY: 1. Morbid obesity. 2. Body mass index 61.5, initial 3. Irritable bowel syndrome. 4. Obstructive sleep apnea. 5. Osteoarthritis of the hips 6. Hypertensive heart disease. 7. Gastroesophageal reflux disease 8. Anxiety. 9. Depression. 10. Migraines. 11. Overactive bladder. 12. Chronic back pain. 13. Degenerative joint disease. 14. Asthma. PAST SURGICAL HISTORY: 1. No abdominal surgeries. 2. Eustachian tubes. HOME MEDICATIONS: 1. Zoloft. 2. Ultram. 3. Zonisamide. 4. Imitrex 5. Ditropan. 6. Levora. 7. Motrin. 8. Neurontin. 9. Fioricet. ALLERGIES: 1. Codeine 2. Soy 3. Tomato 4. [place] 5. Peanut SOCIAL HISTORY: No active tobacco use. Has limited financial resources. She is currently in school. FAMILY HISTORY: No family history of ulcerative colitis disease or Crohn's disease. She does have a family history of morbid obesity. She denies any lupus in her family. No reports of stomach or esophageal cancer. She has a family history of diabetes. REVIEW OF ORGAN SYSTEMS: CONSTITUTIONAL: Her highest weight was 395 pounds last year. At her height of 5 foot 7.25 inches, her ideal body weight is 158 pounds. She is 221 pounds overweight. Her highest body mass index was 61.5. HEENT: Denies any active troubles with hearing. No troubles with swallowing. Wears glasses. ENDOCRINE: No diabetes. Has hypothyroidism. CARDIOVASCULAR: No reports of palpitations or heart attacks or chest pain. RESPIRATORY: Has daytime somnolence including snoring and sleep apnea. No asthma. GI: Denies any bright red blood per rectum or constipation. Does have gastroesophageal reflux disease as described above. MUSCULOSKELETAL: Has lower back pain and joint pain. Has osteoarthritis of the hips and knees. NEURO: Has headaches. No seizure disorders. PSYCH: Has depression without suicidal ideation. Has anxiety. RHEUMATOLOGIC: No lupus. No rheumatoid arthritis. HEMATOLOGIC: Denies any abnormal bleeding or bruising. No personal history of DVTs. SKIN: Has panniculitis. No skin cancer. PHYSICAL EXAM: VITAL SIGNS: Height 5 foot 7.25 inches, weight 379 pounds, now 353 pounds BMI 59.1, now 54.6 GENERAL: Well-developed female in no acute distress. HEENT: No scleral icterus. Extraocular movements grossly intact. Hears conversational speech. No nasal drainage. NECK: Supple without lymphadenopathy. CHEST: Nonlabored respirations with equal bilateral excursions. CARDIOVASCULAR: Regular rate. Distal 2+ pulses. ABDOMEN: Obese, soft, nontender, nondistended. MUSCULOSKELETAL: No clubbing, cyanosis. 2+ pitting edema. Gross strength 5/5 distal lower extremities. NEURO: No focal or lateralizing signs. Cranial nerves 2 through 12 grossly within normal limits. PSYCH: Appropriate affect. Alert and oriented to person, place and time. SKIN: Good skin turgor. Well perfused. Has panniculitis. ASSESSMENT: 1. Morbid obesity. 2. Body mass index 61.5, initial 3. Irritable bowel syndrome. 4. Obstructive sleep apnea. 5. Osteoarthritis of the hips 6. Hypertensive heart disease. 7. Gastroesophageal reflux disease 8. Anxiety. 9. Depression. 10. Migraines. 11. Overactive bladder. 12. Chronic back pain. 13. Degenerative joint disease. 14. Asthma. PLAN: 1. Bariatric options between a sleeve, band and a Cecil-en-Y gastric bypass were reviewed in detail. She elected for a gastric bypass. Robotic assisted approach described. 2. The [place] [facility] Data was also reviewed with benefits and risks as described. 3. An 8 page second-generation bariatric consent form was reviewed in detail including potential of bleeding, infection, leaks, adequate weight loss, nutritional deficiencies which he demonstrated understanding of the risks. 4. A 2 week high-protein low caloric 800 kcal diet described to address hepatomegaly. 5. Preoperative labs including complete metabolic panel and CBC with type and screen recommended. 6. DVT prophylaxis per [place] [facility]. 7. Antibiotic prophylaxis. 8. Inpatient hospitalization anticipated for more than 2 nights. 9. All questions and concerns were addressed with the patient. 10. Recommended dietary classes completed Past Medical History Past Medical History: Asthma Additional Past Medical History / Comment(s): migraines, DDD, IBS, overactive bladder, chronic back pain, GALLBLADDER DISORDER, SEVERAL OUTBREAKS OF ANESTHESIA History of Any Multi-Drug Resistant Organisms: MRSA Date of last positivie culture/infection: 12/23/2016 MDRO Source:: LT INNER THIGH Past Surgical History: Cholecystectomy, Ear Surgery Additional Past Surgical History / Comment(s): tubes in ears, EGDlap choly Past Anesthesia/Blood Transfusion Reactions: No Reported Reaction Smoking Status: Never smoker - Past Family History Mother Family Medical History: No Reported History Medications and Allergies Home Medications Medication Instructions Recorded Confirmed Type Butalb/Acetaminophen/Caffeine 1 tab PO Q8H PRN 04/29/14 02/08/18 History [Fioricet 50-325-40] Oxybutynin Chloride [Ditropan] 10 mg PO QAM 04/29/14 02/08/18 History traMADol HCl [Ultram] 50 - 100 mg PO TID 04/29/14 02/08/18 History Zonisamide 200 mg PO HS 04/06/15 02/08/18 History Gabapentin [Neurontin] 600 mg PO TID 03/18/16 02/08/18 History SUMAtriptan SUCCINATE [Imitrex] 50 mg PO BID PRN 03/18/16 02/08/18 History Ibuprofen [Motrin] 800 mg PO Q6H PRN 03/11/17 02/08/18 History Sertraline HCl [Zoloft] 200 mg PO DAILY 03/11/17 02/08/18 History Loratadine [Claritin] 10 mg PO DAILY 04/29/17 02/08/18 History QUEtiapine [SEROquel] 50 mg PO HS 04/29/17 02/08/18 History Ergocalciferol [Vitamin D2 50,000 unit PO Q7D #12 cap 07/01/17 02/08/18 Rx (DRISDOL)] cloNIDine [Catapres-TTS] 0.3 mg PO HS 11/10/17 02/08/18 History ARIPiprazole [Abilify] 2.5 mg PO QAM 01/27/18 02/08/18 History ARIPiprazole [Abilify] 5 mg PO HS 01/27/18 02/08/18 History Albuterol Inhaler [Ventolin Hfa 90 mcg INHALATION Q6H PRN 01/29/18 02/08/18 History Inhaler] Ranitidine HCl [Zantac] 150 mg PO BID 01/29/18 02/08/18 History [place] 1 tab PO HS 01/29/18 02/08/18 History Allergies Allergy/AdvReac Type Severity Reaction Status Date / Time codeine Allergy Dyspnea Verified 02/08/18 09:06 morphine AdvReac Dyspnea Verified 02/08/18 09:06
[2018-02-08] MEDS ORDERED: SUCCINYLCHOLINE CHLORIDE VIAL 200 MG/10 ML VIAL IV ONE (10:38)
[2018-02-08] MEDS ORDERED: fentaNYL (PF) 50 MCG/ML 2 ML AMP ONE (10:38)
[2018-02-08] MEDS ORDERED: MIDAZOLAM 2 MG/2 ML VIAL ONE (10:38)
[2018-02-08] MEDS ORDERED: KETOROLAC 30 MG/ML 1 ML VIAL ONE (10:38)
[2018-02-08] MEDS ORDERED: LIDOCAINE 1% INJ 10MG/ML (20 ML MDV) ONE (10:38)
[2018-02-08] MEDS ORDERED: PROPOFOL 10 MG/ML 20 ML VIAL IV ONE (10:38)
[2018-02-08] MEDS ORDERED: ROCURONIUM BROMIDE 10 MG/ML 10 ML VIAL IV ONE (10:38)
[2018-02-08] MEDS ORDERED: GLYCOPYRROLATE 0.2 MG/ML 2 ML VIAL ONE (10:38)
[2018-02-08] MEDS ORDERED: NEOSTIGMINE 1 MG/ML 10 ML VIAL ONE (10:38)
[2018-02-08] MEDS ORDERED: BUPIVACAIN-EPI 0.25%-1:200,000 30 ML VIAL SQ ONE (11:14)
[2018-02-08] MEDS ORDERED: LACTATED RINGERS 1,000 ML IV ONE ×2 (12:35)
--- NOTE | 2018-02-08 13:56 | P.OP ---
Date of Procedure: 02/08/18 Description of Procedure: SURGEON: TEZ SOLIS MD PREOPERATIVE DIAGNOSES: 1. Morbid obesity. 2. Body mass index 61.5, initial 3. Irritable bowel syndrome. 4. Obstructive sleep apnea. 5. Osteoarthritis of the hips 6. Hypertensive heart disease. 7. Gastroesophageal reflux disease 8. Anxiety. 9. Depression. 10. Migraines. 11. Overactive bladder. 12. Chronic back pain. 13. Degenerative joint disease. 14. Asthma. POSTOPERATIVE DIAGNOSES: 1. Morbid obesity. 2. Body mass index 61.5, initial 3. Irritable bowel syndrome. 4. Obstructive sleep apnea. 5. Osteoarthritis of the hips 6. Hypertensive heart disease. 7. Gastroesophageal reflux disease 8. Anxiety. 9. Depression. 10. Migraines. 11. Overactive bladder. 12. Chronic back pain. 13. Degenerative joint disease. 14. Asthma. OPERATION: 1. Robotic assisted da Olga Xi laparoscopic Kimberly-en-Y gastric bypass, 100 cm antecolic antegastric Kimberly limb, with 25 mm EEA. 2. Intraoperative esophagogastrojejunoscopy. ANESTHESIA: GETA and local ESTIMATED BLOOD LOSS: 20 mL SPECIMENS REMOVED: None. COMPLICATIONS: NONE. INDICATIONS: Britt Albarran is a 22-year-old female who presents with morbid obesity. Her highest weight was 395 pounds last year. At her height of 5 foot 7.25 inches, her ideal body weight is 158 pounds. She is 221 pounds overweight. Her highest body mass index was 61.5. As a result of her obesity, she has developed osteoarthritis of her joints including obstructive sleep apnea and hypertension. She comes in for evaluation for gastric bypass. Today she comes in weighing 353 pounds. She now presents to undergo robotic assisted gastric bypass. A second-generation bariatric consent form was described in detail including the possibility of protein malnutrition, leaks, gastrojejunal stricture, venous thrombosis, need for further surgery for which she demonstrated understanding. Benefits and risks of the procedure were described at length. Informed consent was obtained. DESCRIPTION: The patient was brought into the operating room theater. She was placed supine. She had received Lovenox subcutaneously for DVT prophylaxis. Additionally she Peridex oral solution as an oral decontaminant was placed per anesthesia. After general induction, the abdomen was prepped and draped in standard sterile fashion. Ioban draping was placed along the abdomen. A robotic da Olga Xi system was prepped and primed. The xiphoid to umbilicus was measured of 13 cm. Her short thorax added moderate complexity to her case. Incisions were proposed at 13 cm from the xiphoid. Proposed port sites were marked with indelible marker along the anterior axillary line bilaterally, mid clavicular line bilaterally with each port marked 10 cm from each other. The robotic stapler port was marked for the right midclavicular line including along the left midclavicular line. A 5 mm 0 degrees laparoscopic trocar entry was performed along the left upper quadrant. The abdomen was insufflated to 15 mmHg pressure, which she tolerated well. Diagnostic laparoscopy demonstrated no injury to bowel, viscera, or mesentery. Severe adhesions along the right upper quadrant and midline was identified from previous open cholecystectomy. An 8 mm camera port was placed left lateral to the umbilicus at the epigastrium , 15 cm distal to the xiphoid. Next, 12-mm robot stapler port was placed along the right mid abdomen. An 12 mm port was exchanged along the left upper quadrant. An 8 mm port was placed on the left lateral abdominal wall under direct visualization Please note that the ports were placed 18 to 20 cm away from the target anatomy of the stomach. Care was taken to check that each robotic arm was safely away from collision with the bed or the patient. At the epigastrium, a medium sized Laina liver retractor was placed under direct visualization with the [employer] Repairer Operator placed under the right shoulder of the patient. The patient was repositioned in reverse Trendelenburg position at 14-degrees after lowering the bed. The robot was docked over the patient. Using grasper for arm 3, a grasper for arm 1, including vessel sealer for arm 4 , the robotic system was docked and primed as described. Instruments were interchanged by the reference assistant including endoscissors, the needle route cdl driver, and stapler. I had sat at the console. Next, the transverse mesocolon was reflected into the upper abdomen after dividing the mesentery and preparing for the jejunojejunostomy portion of the case. The ligament of Treitz was identified and measured 60 cm antegrade and marked using 3-0 Silk. The jejunum was divided at the 60 cm point using 45-mm white loads above the suture measurement. The biliopancreatic limb was held in place. The Kimberly limb was measured 100 cm in an antegrade fashion to avoid tension along the proposed gastrojejunal anastomosis. At 100 cm along the anti-mesenteric border of the Kimberly limb, a jejunojejunostomy was proposed whereby enterotomies were created along the biliopancreatic limb including the Kimberly limb using a Bovie cautery. A stay suture of 3-0 Slik was placed to align and create the anastomosis. The enterotomies along the anti-mesenteric borders were created followed by unidirectional fire from the patient's right side using 2 - 45 mm white load [employer] technology robotic stapler. The jejunojejunostomy was found to be hemostatic. The enterotomy was closed after horizontal mattress stitch of 3-0 silk used to elevate the enterotomy followed by closure with the robotic stapler white load. The jejunal limb was temporarily tacked along the left upper quadrant. Attention was now brought to the creation of the gastrojejunostomy. Along the lesser curvature of the stomach between the second and third veins, dissection was made along the retrogastric space to allow first firing of the robotic staple. Next, along the greater curvature of the stomach window was created with direct transection of the gastric cardia from the rest of the stomach. A nasogastric tube was used to identify the proposed position of the Orvil. Blue and green loads of 45 mm staplers were used to divide the stomach to create the gastric pouch. The patient was then prepared for placement of a Orvil. The patient was Mallampati 1. A 25-mm Orvil was selected for placement by the nurse residence life director. The Orvil tubing was placed posterior to the staple line of the gastric pouch and brought out through the left inferior lateral port. I re-scrubbed into the case. The robotic arms were temporarily undocked. The Orvil was then carefully and successfully navigated with the help of the nurse residence life director into the gastric pouch. The sutures were identified and divided. The tubing was from the 25 mm anvil. As the Orvil had been placed, the blind jejunal limb was brought proximally into the upper abdomen. No torsion was found upon the Kimberly limb. No tension was identified as the limb was brought along the upper abdomen. The blind jejunal limb was previously opened using endo -scissors with cautery. The 25-mm EEA stapler was brought through the left anterior lateral port site from the left side. The EEA stapler was brought through the open jejunal limb and its needle was deployed at the antimesenteric border where the anvil were mated for approximately 1 minute upon firing. The stapler was removed after irrigating the shaft of the instrument with warm normal saline. Donuts were found to be intact and on both sides. The [employer] robot arms were then re-docked. I sat at the console. The open jejunal limb defect was closed using 45 mm white loads after releasing any tension from the blind jejunal limb. Care was taken to avoid any long blind limb to avoid candycane syndrome. Reinforcement sutures were placed along the gastrojejunal anastomosis and placed along the 9:00 and 3 o'clock position. The Sofia and jejunojejunostomy mesenteric defects were obliterated by her intra-abdominal fat. I then went to the head of the bed to perform the esophagogastrojejunoscopy and a leak test. An Olympus gastroscope was passed along the posterior oropharynx which was unremarkable for any injury to the vocal cords. The scope was passed down to the proximal portion of the pouch, whereby no active bleeding was encountered. Excellent visualization of the gastrojejunostomy anastomosis, including the Kimberly limb was encountered with endoscopic image obtained. The anastomosis was found to be patent. The gastrointestinal tract was desufflated. No evidence of intraoperative leak was encountered as the gastric pouch and anastomosis were submerged under normal saline solution. The robot was then undocked. I then went back to the bedside of the patient, whereby with coordinated effort of the reference assistant, irrigation was aspirated from the upper abdominal cavity. Tisseel was placed circumferentially over the anastomosis of the gastrojejunostomy. The fascial defect of the EEA stapler was left open given in thickness of her subcutaneous tissue and limited space in the thoracic cavity. All instruments and pneumoperitoneum were evacuated from the abdominal cavity. The port correlating with the EEA stapler device was cleansed with normal saline solution and hydrogen peroxide. The rest of incisions were reapproximated using 4-0 Monocryl in an interrupted subcuticular fashion. Local anesthetic was infiltrated along the skin for postop analgesia. Liquid glue was applied to the skin. OptiFoam dressing was placed along the EEA stapler site. At the end of the procedure, needle, sponge and instrument count had been verified correct by the surgical garment fitter. She had tolerated the procedure well and was extubated and taken to the postanesthesia unit in stable condition. Intraoperative findings were described to the patient's family who were very pleased with the level of care. Total console time 83 minutes Operative Findings: 1. Biliopancreatic limb 60 cm 2. Bypass performed using 100 cm kimberly limb secondary to avoid increased tension at 150 cm. 3. Garcia defect and jejunojejunostomy defect obliterated by moderate intra- abdominal fat. 4. Leak test negative with gastrojejunal anastomosis patent and hemostatic. 5. Robotic staplers total of 10 combined blue and green and white 45 mm used to gastric pouch 6. Reinforcement sutures were placed along the gastrojejunal anastomosis
[2018-02-08] MEDS ORDERED: ONDANSETRON 4 MG/2 ML VIAL IVP PRN (13:57)
[2018-02-08] MEDS ORDERED: NALOXONE 0.4 MG/ML 1 ML VIAL IV PRN (13:57)
[2018-02-08] MEDS: MEPERIDINE 50 MG/ML SYRINGE IVP ONE ×2 (14:21→14:40)
[2018-02-08] MEDS ORDERED: ACETAMINOPHEN IV (For NPO) 1,000 MG in EMPTY BAG 1 BAG IVPB ONE (15:00)
[2018-02-08] MEDS ORDERED: VANCOMYCIN 2,000 MG in SODIUM CHLORIDE 0.9% 500 ML IVPB SCH ×2 (16:00→18:30)
[2018-02-08] MEDS: 0.9% NACL WITH KCL 20 MEQ/L 1,000 ML IV SCH ×2 (16:38→23:16)
[2018-02-08] MEDS: diphenhydrAMINE 50 MG/ML 1 ML VIAL IVP SCH ×2 (17:09→23:16)
[2018-02-08] MEDS: HYOSCYAMINE ORAL DROPS 1.875 MG/15 ML BOTTLE PO SCH ×2 (17:10→23:09)
[2018-02-08] MEDS: SIMETHICONE 40 MG/0.6 ML DROPS 2,000 MG/30 ML BOTTLE PO SCH ×2 (17:11→23:06)
[2018-02-08] MEDS: AMPICILLIN-SULBACTAM 3 GM in SODIUM CHLORIDE 0.9% 100 ML IVPB SCH ×2 (17:11→21:17)
[2018-02-08] MEDS: ALBUTEROL NEBULIZED 2.5 MG/3 ML INHALATION SCH ×2 (17:19→20:19)
[2018-02-08] MEDS: HYDROmorphone 1 MG/ML 1 ML SYRINGE IVP PRN (17:59)
[2018-02-08] MEDS: HYDROcodone/APAP 15 ML SOLUTION PO PRN (19:55)
[2018-02-08 20:19] VITALS: BMI 54.6
[2018-02-09] MEDS: HYDROcodone/APAP 15 ML SOLUTION PO PRN ×3 (01:11→13:48)
[2018-02-09] MEDS: 0.9% NACL WITH KCL 20 MEQ/L 1,000 ML IV SCH (03:55)
[2018-02-09] MEDS: HYDROmorphone 1 MG/ML 1 ML SYRINGE IVP PRN ×2 (04:02→10:02)
[2018-02-09] MEDS: HYOSCYAMINE ORAL DROPS 1.875 MG/15 ML BOTTLE PO SCH ×2 (05:28→11:02)
[2018-02-09] MEDS: SIMETHICONE 40 MG/0.6 ML DROPS 2,000 MG/30 ML BOTTLE PO SCH ×2 (05:29→11:02)
[2018-02-09] MEDS: diphenhydrAMINE 50 MG/ML 1 ML VIAL IVP SCH ×2 (05:30→11:02)
[2018-02-09] MEDS ORDERED: VANCOMYCIN 2,000 MG in SODIUM CHLORIDE 0.9% 500 ML IVPB SCH (06:00)
[2018-02-09] MEDS ORDERED: 0.9% NACL WITH KCL 20 MEQ/L 1,000 ML IV SCH (08:00)
[2018-02-09 08:10] LABS: Anion Gap 9 mmol/L; Blood Urea Nitrogen 4 mg/dL (7-17); Calcium 8.9 mg/dL (8.4-10.2); Carbon Dioxide 22 mmol/L (22-30); Chloride 110 mmol/L (98-107); Magnesium 1.7 mg/dL (1.6-2.3); Phosphorus 3.1 mg/dL (2.5-4.5); Sodium 141 mmol/L (137-145)
[2018-02-09 08:15] LABS: Potassium 4.1 mmol/L (3.5-5.1)
[2018-02-09] MEDS: ALBUTEROL NEBULIZED 2.5 MG/3 ML INHALATION SCH ×3 (08:59→16:27)
[2018-02-09] MEDS ORDERED: ENOXAPARIN 40 MG/0.4 ML SYRINGE SQ SCH (09:00)
[2018-02-09] MEDS ORDERED: PANTOPRAZOLE 40 MG/10 ML VIAL IV SCH (09:00)
[2018-02-09 10:07] LABS: Basophils % (A) 0 %; Eosinophils # (A) 0.1 k/uL (0-0.7); Eosinophils % (A) 1 %; HCT 38.6 % (34.0-46.0); HGB 12.8 gm/dL (11.4-16.0); Lymphocytes # (A) 1.1 k/uL (1.0-4.8); Lymphocytes % (A) 9 %; MCH 30.8 pg (25.0-35.0); MCHC 33.1 g/dL (31.0-37.0); MCV 93.1 fL (80.0-100.0); Mean Platelet Volume 10.2; Monocytes # (A) 0.7 k/uL (0-1.0); Monocytes % (A) 5 %; Neutrophils # (A) 10.4 k/uL (1.3-7.7); Neutrophils % (A) 84 %; Platelet Count 210 k/uL (150-450); RBC 4.14 m/uL (3.80-5.40); RDW 12.5 % (11.5-15.5); WBC 12.4 k/uL (3.8-10.6)
--- NOTE | 2018-02-09 15:33 | P.DS ---
Providers Date of admission: 02/08/18 08:56 Expected date of discharge: 02/09/18 Attending physician: Evie Garg Primary care physician: [facility] Course: 22-year-old female who presented with morbid obesity. Patient is 221 pounds overweight. Highest BMI 61. A result of her obesity patient developed osteoarthritis, obstructive sleep apnea and hypertension. As a result of her obesity patient also developed back pain and knee pain. February 08 patient underwent Robotic assisted da Olga Xi laparoscopic Cecil-en-Y gastric bypass, 100 cm antecolic antegastric Cecil limb, with 25 mm EEA. Intraoperative esophagogastrojejunoscopy. The day of discharge patient was up ambulatory on the unit pain medication effective for pain control was felt to be appropriate to be discharged home plan would be the patient would be seen in the bariatric clinic the following morning surgical incision sites were dry abdomen soft nondistended. Room air sats are 95% heart rate in the 70s afebrile White count 12. 4 hemoglobin 12.8 electrolyte within normal limits magnesium 1.7 in which it was replaced. Patient was felt to be appropriate to be discharged Impression discharge diagnose Morbid obesity BMI 54 Initial BMI 61 Irritable bowel syndrome Obstructive sleep apnea [place] arthritis of the hips and lower back Hypertensive heart disease Migraines Depression anxiety Overactive bladder Asthma no evidence of an exacerbation Degenerative joint disease Robotic assisted da Olga Xi laparoscopic Cecil-en-Y gastric bypass, 100 cm antecolic antegastric Cecil limb, with 25 mm EEA. Done on February 08 2. Intraoperative esophagogastrojejunoscopy. The above impression and plan of care have been discussed and directed by signing physician. Yanique Rowan nurse practitioner acting as scribe for signing physician. Plan - Discharge Summary Discharge Rx Participant: Yes New Discharge Prescriptions: New HYDROcodone/APAP [Denver Elixir 7.5-325Mg/15Ml] 30 ml PO Q6HR PRN #360 solution PRN Reason: Severe Pain Bisacodyl [Dulcolax] 5 mg PO DAILY PRN #10 tablet. PRN Reason: Constipation Ondansetron Odt [Zofran Odt] 4 mg PO Q8HR PRN #9 tab PRN Reason: Nausea Simethicone 40 mg/0.6 ml Drops [Mylicon Drops] 40 mg PO PCHS PRN #30 ml PRN Reason: Gas Continue Oxybutynin Chloride [Ditropan] 10 mg PO QAM Zonisamide 200 mg PO HS Gabapentin [Neurontin] 600 mg PO TID SUMAtriptan SUCCINATE [Imitrex] 50 mg PO BID PRN PRN Reason: Migraine Headache Sertraline HCl [Zoloft] 200 mg PO DAILY Loratadine [Claritin] 10 mg PO DAILY QUEtiapine [SEROquel] 50 mg PO HS ARIPiprazole [Abilify] 2.5 mg PO QAM ARIPiprazole [Abilify] 5 mg PO HS Ranitidine HCl [Zantac] 150 mg PO BID Albuterol Inhaler [Ventolin Hfa Inhaler] 90 mcg INHALATION RT-QID PRN PRN Reason: Dyspnea cloNIDine HCL 0.3 mg PO HS Discontinued Butalb/Acetaminophen/Caffeine [Fioricet 50-325-40] 1 tab PO Q8H PRN PRN Reason: Headache traMADol HCl [Ultram] 50 - 100 mg PO TID Ibuprofen [Motrin] 800 mg PO Q6H PRN PRN Reason: Pain Ergocalciferol [Vitamin D2 (DRISDOL)] 50,000 unit PO Q7D #12 cap Setlakin 1 tab PO HS Discharge Medication List Oxybutynin Chloride [Ditropan] 10 mg PO QAM 04/29/14 [History] Zonisamide 200 mg PO HS 04/06/15 [History] Gabapentin [Neurontin] 600 mg PO TID 03/18/16 [History] SUMAtriptan SUCCINATE [Imitrex] 50 mg PO BID PRN 03/18/16 [History] Sertraline HCl [Zoloft] 200 mg PO DAILY 03/11/17 [History] Loratadine [Claritin] 10 mg PO DAILY 04/29/17 [History] QUEtiapine [SEROquel] 50 mg PO HS 04/29/17 [History] ARIPiprazole [Abilify] 2.5 mg PO QAM 01/27/18 [History] ARIPiprazole [Abilify] 5 mg PO HS 01/27/18 [History] Albuterol Inhaler [Ventolin Hfa Inhaler] 90 mcg INHALATION RT-QID PRN 01/29/18 [ History] Ranitidine HCl [Zantac] 150 mg PO BID 01/29/18 [History] cloNIDine HCL 0.3 mg PO HS 02/08/18 [History] Bisacodyl [Dulcolax] 5 mg PO DAILY PRN #10 tablet. 02/09/18 [Rx] HYDROcodone/APAP [Den[place] Elixir 7.5-325Mg/15Ml] 30 ml PO Q6HR PRN #360 solution 02/09/18 [Rx] Ondansetron Odt [Zofran Odt] 4 mg PO Q8HR PRN #9 tab 02/09/18 [Rx] Simethicone 40 mg/0.6 ml Drops [Mylicon Drops] 40 mg PO PCHS PRN #30 ml [Rx] Follow up Appointment(s)/Referral(s): [facility],. [NON-STAFF] - 02/10/18 2:00 pm Patient Instructions/Handouts: Nutrition after Bariatric Surgery (DC), Laparoscopic Sleeve Gastrectomy (DC) Activity/Diet/Wound Care/Special Instructions: Clear liquid diet until tomorrow. NO bathtub soaks. Sponge bath only. NO lifting over 4 pounds in 4 weeks. NO straws. NO carbonated beverages. Please crush, cut, or open capsule for medications greater than the size of a tic-tac. Discharge Disposition: HOME SELF-CARE
[2018-02-09 16:19] VITALS: BP 120/74; PULSE 71; RESP 12; TEMP 98.9
[2018-02-10] MEDS ORDERED: BISACODYL 5 MG TABLET.DR PO PRN (08:00)
== END 2018-02-09 16:48 | disposition home or self-care (01) | DRG 621 ==
LOC: 2ORMAIN 08:56 → 3SUR 13:45
PROVIDERS: ADMIT Surgery Plastic and Reconstructive Surgery; ATTEND Surgery Plastic and Reconstructive Surgery
PROC: 0D160ZA Bypass Stomach to Jejunum, Open Approach (ICD-10-PCS; principal; 2018-02-08 10:55)
PROC: 8E0W0CZ Robotic Assisted Procedure of Trunk Region, Open Approach (ICD-10-PCS; principal; 2018-02-08 10:55)
PROC: 0DJ08ZZ Inspection of Upper Intestinal Tract, Via Natural or Artificial Opening Endoscopic (ICD-10-PCS; principal; 2018-02-08 10:55)
DX: E66.01 Morbid (severe) obesity due to excess calories (principal); F41.9 Anxiety disorder, unspecified; F32.9 Major depressive disorder, single episode, unspecified; G43.909 Migraine, unspecified, not intractable, without status migrainosus; G47.33 Obstructive sleep apnea (adult) (pediatric); G89.29 Other chronic pain; I11.9 Hypertensive heart disease without heart failure; J45.909 Unspecified asthma, uncomplicated; K21.9 Gastro-esophageal reflux disease without esophagitis; K58.9 Irritable bowel syndrome, unspecified; M16.0 Bilateral primary osteoarthritis of hip; M47.9 Spondylosis, unspecified; N32.81 Overactive bladder; Z68.44 Body mass index [BMI] 60.0-69.9, adult; Z83.3 Family history of diabetes mellitus; Z79.1 Long term (current) use of non-steroidal anti-inflammatories (NSAID); Z79.891 Long term (current) use of opiate analgesic; Z79.899 Other long term (current) drug therapy; Z88.5 Allergy status to narcotic agent; Z91.010 Allergy to peanuts; Z91.018 Allergy to other foods; Z90.49 Acquired absence of other specified parts of digestive tract
CPT/HCPCS: 80051; 81025; 82310; 82565; 83735; 84100; 84520; 85025; 86850; 86900; 86901; 94640; 94760

== ENCOUNTER → 2018-02-10 | Outpatient (CLI) | payer OTHER ==
[2018-02-10 15:08] VITALS: BP 113/79; PULSE 88; RESP 16; TEMP 98.3; BMI 55.7
--- NOTE | 2018-02-10 16:07 | P.PN ---
Subjective Progress Note Date: 02/10/18 HPI: She reports history of chronic pain. No fevers or chills. ABDOMEN: No signs of infecton. Dressing is removed. PLAN: 1. Pain management per pain specialist 2. Abdominal binder for comfort 3. Follow-up in 1 week after start of protein shakes. Objective - Vital Signs Vital signs: Vital Signs Temp 98.3 F 02/10/18 15:05 Pulse 88 02/10/18 15:05 Resp 16 02/10/18 15:05 BP 113/79 02/10/18 15:05 Pulse Ox Intake & Output 02/09/18 02/10/18 02/10/18 18:59 06:59 18:59 Weight 162.84 kg
== END ==
LOC: BARWHC3 14:08
PROVIDERS: ATTEND Surgery Plastic and Reconstructive Surgery
DX: G89.29 Other chronic pain (principal)
CPT/HCPCS: 99211

== ENCOUNTER → 2018-02-17 | Outpatient (CLI) | payer OTHER ==
--- NOTE | 2018-02-17 15:10 | P.PN ---
Subjective Progress Note Date: 02/17/18 HPI: Her pain is controlled. She reports diarrhea from Aspartame. She is having chronic diarrhea. She is now lactose intolerance. ABDOMEN: No infection. PLAN: 1. Avoid sugar free diet. 2. She is doing well.
--- NOTE | 2018-02-17 15:14 | P.PN ---
Progress Note - Text Progress Note Date: 02/17/18 To whom it may concern: Britt Albarran may resume your pain management as she is no longer requiring post-op pain managememt. Regards, Evie Garg MD
[2018-02-17 18:20] VITALS: BP 136/84; PULSE 98; TEMP 98; BMI 54.1
== END ==
LOC: BARWHC3 13:15
PROVIDERS: ATTEND Surgery Plastic and Reconstructive Surgery
DX: K52.9 Noninfective gastroenteritis and colitis, unspecified (principal); E66.01 Morbid (severe) obesity due to excess calories
CPT/HCPCS: 97803; G0463; 99211

== ENCOUNTER → 2018-03-08 | Outpatient (CLI) | payer OTHER ==
[2018-03-08 18:38] LABS: HCT 39.5 % (34.0-46.0); HGB 13.3 gm/dL (11.4-16.0); MCHC 33.6 g/dL (31.0-37.0); MCV 92.1 fL (80.0-100.0); Mean Platelet Volume 10.7; Platelet Count 188 k/uL (150-450); RBC 4.28 m/uL (3.80-5.40); RDW 12.8 % (11.5-15.5); WBC 6.5 k/uL (3.8-10.6)
[2018-03-09 03:29] LABS: Albumin 4.2 g/dL (3.80-4.90); Albumin/Globulin Ratio 2.47 (1.20-2.10); Anion Gap 9.4 mmol/L (4.00-12.00); Calcium 9.4 mg/dL (8.7-10.3); Carbon Dioxide 23.6 mmol/L (21.6-31.8); Globulin 1.7 g/dL (2.1-3.7); Magnesium 1.6 mg/dL (1.5-2.4); Phosphorus 4.1 mg/dL (2.4-5.1); Potassium 3.8 mmol/L (3.5-5.5); Total Bilirubin 0.4 mg/dL (0.3-1.2); Total Protein 5.9 g/dL (6.2-8.2)
[2018-03-09 03:48] LABS: Iron Saturation 14.18 (12.00-45.00)
[2018-03-09 03:57] LABS: Folate, Serum 7.9 ng/mL; Vitamin D 25 Hydroxy 25.8 ng/mL (30.0-100.0)
[2018-03-09 04:38] LABS: Parathyroid Hormone Intact 38.3 pg/mL (14.0-72.0)
[2018-03-09 05:06] LABS: Hemoglobin A1C 5.2 % (4.0-6.0)
[2018-03-10 12:34] LABS: Zinc, Serum 89 ug/dL (60-130)
== END ==
LOC: LABWHC1 17:20
PROVIDERS: ATTEND Surgery Plastic and Reconstructive Surgery
DX: Z48.815 Encounter for surgical aftercare following surgery on the digestive system (principal); E66.01 Morbid (severe) obesity due to excess calories; E21.1 Secondary hyperparathyroidism, not elsewhere classified; E89.1 Postprocedural hypoinsulinemia; D50.9 Iron deficiency anemia, unspecified; K90.9 Intestinal malabsorption, unspecified; E55.9 Vitamin D deficiency, unspecified; K74.1 Hepatic sclerosis; N19 Unspecified kidney failure; K50.90 Crohn's disease, unspecified, without complications; Z98.84 Bariatric surgery status
CPT/HCPCS: 36415; 80053; 80061; 82306; 82525; 82607; 82728; 82746; 83036; 83540; 83550; 83735; 83970; 84100; 84134; 84255; 84443; 84630; 85027

== ENCOUNTER → 2018-03-10 | Outpatient (CLI) | payer OTHER ==
[2018-03-10 16:34] VITALS: BP 132/83; PULSE 70; RESP 16; TEMP 98.7; BMI 51.4
--- NOTE | 2018-03-10 17:05 | P.PN ---
Subjective Progress Note Date: 03/10/18 HPI: She reports severe panniculitis along the skin fold. She reports having the gastric bug. ABDOMEN: All incisions are healed. Panniculitis of the abdomen noted. ASSESSMENT: 1. Status gastric bypass. 2. Morbid obesity. PLAN: 1. Blood work needed 2. Continue omeprazole or zantac 3. Nystatin powder for panniculitis. 4. May re-start BCP for heavy menstrual cycles. Objective - Vital Signs Vital signs: Vital Signs Temp 98.7 F 03/10/18 16:29 Pulse 70 03/10/18 16:29 Resp 16 03/10/18 16:29 BP 132/83 03/10/18 16:29 Pulse Ox Intake & Output 03/09/18 03/10/18 03/10/18 18:59 06:59 18:59 Weight 150.139 kg
== END ==
LOC: BARWHC3 15:56
PROVIDERS: ATTEND Surgery Plastic and Reconstructive Surgery
DX: E66.01 Morbid (severe) obesity due to excess calories (principal); M79.3 Panniculitis, unspecified; Z98.84 Bariatric surgery status; Z68.43 Body mass index [BMI] 50.0-59.9, adult
CPT/HCPCS: 97803; G0463; 99211

== ENCOUNTER 2018-03-26 08:14 | Day surgery (SDC) | payer OTHER ==
[2018-03-25 13:32] VITALS: BMI 51.0
--- NOTE | 2018-03-26 07:00 | P.GSHP ---
History of Present Illness H&P Date: 03/26/18 CHIEF COMPLAINT: GERD HISTORY OF PRESENT ILLNESS: The patient is a 22-year-old female who presents reports gastroesophageal reflux disease. Upper endoscopy was offered for further evaluation and management. PAST MEDICAL HISTORY: Please see list. PAST SURGICAL HISTORY: Please see list. MEDICATIONS: Please see list. ALLERGIES: Please see list. SOCIAL HISTORY: No illicit drug use FAMILY HISTORY: No reports of Crohn disease or ulcerative colitis. REVIEW OF ORGAN SYSTEMS: CONSTITUTIONAL: No reports of fevers or chills. GI: Denies any blood in stools or constipation. PHYSICAL EXAM: VITAL SIGNS: Stable GENERAL: Well-developed and pleasant in no acute distress. HEENT: No scleral icterus. Extraocular movements grossly intact. Moist buccal mucosa. NECK: Supple without lymphadenopathy. CHEST: Unlabored respirations. Equal bilateral excursions. CARDIOVASCULAR: Regular rate and rhythm. Distal 2+ pulses. ABDOMEN: Soft, nondistended. MUSCULOSKELETAL: No clubbing, cyanosis, or edema. ASSESSMENT: 1. Gastroesophageal reflux disease PLAN: 1. Recommend proceeding with an upper endoscopy Past Medical History Past Medical History: Asthma Additional Past Medical History / Comment(s): ABD PAIN, migraines, DDD, IBS, overactive bladder, chronic back pain, History of Any Multi-Drug Resistant Organisms: MRSA Date of last positivie culture/infection: 11/08/17 MDRO Source:: LT INNER THIGH Past Surgical History: Bariatric Surgery, Cholecystectomy, Ear Surgery Additional Past Surgical History / Comment(s): tubes in ears, EGD, lap choly , laparoscopic kimberly-en-y 02-08-2018 Past Anesthesia/Blood Transfusion Reactions: No Reported Reaction Smoking Status: Never smoker - Past Family History Mother Family Medical History: No Reported History Medications and Allergies Home Medications Medication Instructions Recorded Confirmed Type Oxybutynin Chloride [Ditropan] 10 mg PO QAM 04/29/14 03/25/18 History Zonisamide 200 mg PO HS 04/06/15 03/25/18 History Gabapentin [Neurontin] 600 mg PO TID 03/18/16 03/25/18 History SUMAtriptan SUCCINATE [Imitrex] 50 mg PO BID PRN 03/18/16 03/25/18 History Sertraline HCl [Zoloft] 200 mg PO DAILY 03/11/17 03/25/18 History Loratadine [Claritin] 10 mg PO DAILY 04/29/17 03/25/18 History QUEtiapine [SEROquel] 50 mg PO HS 04/29/17 03/25/18 History ARIPiprazole [Abilify] 10 mg PO HS 01/27/18 03/25/18 History Albuterol Inhaler [Ventolin Hfa 90 mcg INHALATION RT-QID PRN 01/29/18 03/25/18 History Inhaler] Ranitidine HCl [Zantac] 150 mg PO BID 01/29/18 03/25/18 History cloNIDine HCL 0.3 mg PO HS 02/08/18 03/25/18 History Simethicone 40 mg/0.6 ml Drops 40 mg PO PCHS PRN #30 ml 02/09/18 03/25/18 Rx [Mylicon Drops] Nystatin 100,000 Unit/gm Powd 1 applic TOPICAL BID #60 powder 03/10/18 03/25/18 Rx [Mycostatin Powder] Setlakin 1 tab PO DAILY 03/25/18 History traMADol HCl [Ultram] 50 mg PO TID 03/25/18 03/25/18 History Allergies Allergy/AdvReac Type Severity Reaction Status Date / Time codeine Allergy Dyspnea Verified 03/25/18 13:23 morphine AdvReac Dyspnea Verified 03/25/18 13:23 DURMABOND AdvReac Swelling Uncoded 03/25/18 13:23
[~2018-03-26 08:14] MED LIST changes: +LIDOCAINE 1% 20 ML VIAL (10MG/ML) FOR IV START INTRADERMA PRN; -MIDAZOLAM 2 MG/2 ML VIAL IV PRN; -SCOPOLAMINE 1.5MG/72HR PATCH TRANSDERM ONE; -fentaNYL (PF) 50 MCG/ML 2 ML AMP IV PRN
[2018-03-26 08:42] VITALS: TEMP 97
[2018-03-26] MEDS ORDERED: MIDAZOLAM 2 MG/2 ML VIAL ONE (09:24)
[2018-03-26] MEDS ORDERED: fentaNYL (PF) 50 MCG/ML 2 ML AMP ONE (09:24)
[2018-03-26] MEDS ORDERED: LIDOCAINE 1% INJ 10MG/ML (20 ML MDV) ONE (09:24)
[2018-03-26] MEDS ORDERED: PROPOFOL 10 MG/ML 20 ML VIAL IV ONE (09:24)
--- NOTE | 2018-03-26 09:41 | P.PCN ---
Date of Procedure: 03/26/18 Description of Procedure: PREOPERATIVE DIAGNOSIS: Dysphagia. Epigastric abdominal pain POSTOPERATIVE DIAGNOSIS: Dysphagia. 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 SURGEON: Evie Garg MD ANESTHESIA: MAC. INDICATIONS: The patient is a 22-year-old female who presents with a history of dysphagia, gastric bypass including epigastric abdominal pain. Benefits and risks of the procedure were described. Informed consent was obtained. DESCRIPTION: The patient was brought into the endoscopy suite and laid in the left lateral decubitus position. After a timeout was confirmed, the procedure was initiated. An Olympus gastroscope was passed along the posterior oropharynx down to the distal esophagus where the squamocolumnar junction was unremarkable. The gastric pouch was entered. A gastrojejunal stricture of 7 mm was found as the adult gastroscope was 9.9 mm in size. A [employer] balloon dilator was placed through the scope. Final insufflation up to 10 mm was performed with a total of 2 minutes. The scope was advanced up to 60 cm from the incisors into the Cecil limb. The mucosa of the gastrojejunal anastomosis was intact. Acute gastrojejunal ulcer was confirmed after completion of dilation. No full-thickness injury was encountered. The GI tract was desufflated. The patient tolerated the procedure well. FINDINGS: Stricture of 7 mm encountered. Balloon dilatation to 10 mm. Acute gastrojejunal ulcer without perforation RECOMMENDATIONS: Recommend Carafate including antacid treatment. Will need repeat upper endoscopy 3 weeks. Plan - Discharge Summary New Discharge Prescriptions: No Action Oxybutynin Chloride [Ditropan] 10 mg PO QAM Zonisamide 200 mg PO HS Gabapentin [Neurontin] 600 mg PO TID SUMAtriptan SUCCINATE [Imitrex] 50 mg PO BID PRN PRN Reason: Migraine Headache Sertraline HCl [Zoloft] 200 mg PO DAILY Loratadine [Claritin] 10 mg PO DAILY QUEtiapine [SEROquel] 50 mg PO HS ARIPiprazole [Abilify] 10 mg PO HS Ranitidine HCl [Zantac] 150 mg PO BID Albuterol Inhaler [Ventolin Hfa Inhaler] 90 mcg INHALATION RT-QID PRN PRN Reason: Dyspnea cloNIDine HCL 0.3 mg PO HS Simethicone 40 mg/0.6 ml Drops [Mylicon Drops] 40 mg PO PCHS PRN #30 ml PRN Reason: Gas Nystatin 100,000 Unit/gm Powd [Mycostatin Powder] 1 applic TOPICAL BID #60 powder traMADol HCl [Ultram] 50 mg PO TID Setlakin 1 tab PO DAILY Discharge Medication List Oxybutynin Chloride [Ditropan] 10 mg PO QAM 04/29/14 [History] Zonisamide 200 mg PO HS 04/06/15 [History] Gabapentin [Neurontin] 600 mg PO TID 03/18/16 [History] SUMAtriptan SUCCINATE [Imitrex] 50 mg PO BID PRN 03/18/16 [History] Sertraline HCl [Zoloft] 200 mg PO DAILY 03/11/17 [History] Loratadine [Claritin] 10 mg PO DAILY 04/29/17 [History] QUEtiapine [SEROquel] 50 mg PO HS 04/29/17 [History] ARIPiprazole [Abilify] 10 mg PO HS 01/27/18 [History] Albuterol Inhaler [Ventolin Hfa Inhaler] 90 mcg INHALATION RT-QID PRN 01/29/18 [ History] Ranitidine HCl [Zantac] 150 mg PO BID 01/29/18 [History] cloNIDine HCL 0.3 mg PO HS 02/08/18 [History] Simethicone 40 mg/0.6 ml Drops [Mylicon Drops] 40 mg PO PCHS PRN #30 ml [Rx] Nystatin 100,000 Unit/gm Powd [Mycostatin Powder] 1 applic TOPICAL BID #60 powder 03/10/18 [Rx] Setlakin 1 tab PO DAILY 03/25/18 [History] traMADol HCl [Ultram] 50 mg PO TID 03/25/18 [History]
[2018-03-26 09:45] VITALS: RESP 16
[2018-03-26 10:07] VITALS: BP 136/81; PULSE 67
== END 2018-03-26 10:23 | disposition home or self-care (01) ==
LOC: ORWHC2ENDO 08:14
PROVIDERS: ATTEND Surgery Plastic and Reconstructive Surgery
DX: K25.3 Acute gastric ulcer without hemorrhage or perforation (principal); K31.89 Other diseases of stomach and duodenum; Z98.84 Bariatric surgery status; Z98.0 Intestinal bypass and anastomosis status; J45.909 Unspecified asthma, uncomplicated; G43.909 Migraine, unspecified, not intractable, without status migrainosus; K58.9 Irritable bowel syndrome, unspecified; N32.81 Overactive bladder; M54.9 Dorsalgia, unspecified; G89.29 Other chronic pain; Z90.49 Acquired absence of other specified parts of digestive tract; Z79.891 Long term (current) use of opiate analgesic; Z79.899 Other long term (current) drug therapy; Z88.5 Allergy status to narcotic agent; Z88.8 Allergy status to other drugs, medicaments and biological substances; Z86.14 Personal history of Methicillin resistant Staphylococcus aureus infection
CPT/HCPCS: 81025; 84703; 43245; J2250; J2001; J3010; J2704; C1726

== ENCOUNTER → 2018-04-14 | Outpatient (CLI) | payer OTHER ==
--- NOTE | 2018-04-14 15:10 | P.PN ---
Subjective Progress Note Date: 04/14/18 DATE: 04/14/2018 CHIEF COMPLAINT: Status post gastric bypass HISTORY OF PRESENT ILLNESS: Britt Albarran is a 22-year-old female is status post gastric bypass 02/08/2018. She is 2 months out. She has a horrible ulcer found on EGD. She can tolerate liquids. She is on carafate now. Her highest weight was 395 pounds. Today she comes in weighing 304 pounds from 325 pounds, 3 weeks ago. She has lost 22 pounds in 3 weeks. At her height of 5 foot 7.25 inches, her ideal body weight is 158 pounds. Total lifetime weight loss is 91 pounds. Her percent excess weight loss is 39 %. Her highest body mass index was 61.5. Today her BMI is 47.3 PHYSICAL EXAM: VITAL SIGNS: Height 5 foot 7.25 inches, weight 304 pounds. BMI 47.3 Vital Signs Temp 98.4 F 04/14/18 15:00 Pulse 67 04/14/18 15:00 Resp BP 134/72 04/14/18 15:00 Pulse Ox GENERAL: Well-developed female in no acute distress. HEENT: No scleral icterus. Extraocular movements grossly intact. Hears conversational speech. No nasal drainage. NECK: Supple without lymphadenopathy. CHEST: Nonlabored respirations with equal bilateral excursions. CARDIOVASCULAR: Regular rate. Distal 2+ pulses. ABDOMEN: Epigastric tenderness. Soft, nondistended. No infection. MUSCULOSKELETAL: No clubbing, cyanosis. NEURO: No focal or lateralizing signs. Cranial nerves 2 through 12 grossly within normal limits. PSYCH: Appropriate affect. Alert and oriented to person, place and time. SKIN: Good skin turgor. Well perfused. ASSESSMENT: 1. Morbid obesity. 2. Body mass index 61.5 down to 47.3 3. Irritable bowel syndrome. 4. Obstructive sleep apnea. 5. Osteoarthritis of the hips 6. Hypertensive heart disease. 7. Gastroesophageal reflux disease 8. Anxiety. 9. Depression. 10. Migraines. 11. Overactive bladder. 12. Chronic back pain. 13. Degenerative joint disease. 14. Asthma. 15. Status post gastric bypass 16. Epigastric pain 17. Gastrojejunal ulcer PLAN: 1. She has just got her Carafate 2. She will need 4 weeks of treatment 3. She will need repeat EGD in May 2018
[2018-04-14 15:16] VITALS: BP 134/72; PULSE 67; TEMP 98.4; BMI 47.2
== END | disposition home or self-care (01) ==
LOC: BARWHC3 14:11
PROVIDERS: ATTEND Surgery Plastic and Reconstructive Surgery
DX: E66.01 Morbid (severe) obesity due to excess calories (principal); K28.9 Gastrojejunal ulcer, unspecified as acute or chronic, without hemorrhage or perforation; R63.4 Abnormal weight loss; K58.9 Irritable bowel syndrome, unspecified; G47.33 Obstructive sleep apnea (adult) (pediatric); M16.0 Bilateral primary osteoarthritis of hip; I11.9 Hypertensive heart disease without heart failure; K21.9 Gastro-esophageal reflux disease without esophagitis; F41.9 Anxiety disorder, unspecified; F32.9 Major depressive disorder, single episode, unspecified; G43.909 Migraine, unspecified, not intractable, without status migrainosus; N32.81 Overactive bladder; G89.29 Other chronic pain; M54.9 Dorsalgia, unspecified; M19.90 Unspecified osteoarthritis, unspecified site; J45.909 Unspecified asthma, uncomplicated; Z98.84 Bariatric surgery status; Z68.42 Body mass index [BMI] 45.0-49.9, adult
CPT/HCPCS: 99211

== ENCOUNTER 2018-05-10 23:13 | Emergency (ER) | payer OTHER ==
[2018-05-10 23:20] VITALS: TEMP 98.2
[2018-05-10] MEDS ORDERED: SODIUM CHLORIDE 0.9% 2,000 ML IV STA (23:30)
[2018-05-10] MEDS ORDERED: ONDANSETRON 4 MG/2 ML VIAL IVP STA (23:30)
--- NOTE | 2018-05-11 00:08 | ED ---
Nausea/Vomiting/Diarrhea HPI - General Chief complaint: Nausea/Vomiting/Diarrhea Stated complaint: Vertigo,vomiting Time Seen by Provider: 05/10/18 23:30 Source: patient, family, RN notes reviewed Mode of arrival: ambulatory Limitations: no limitations - History of Present Illness Initial comments: 22-year-old female presents emergency Department chief complaint abdominal pain , nausea vomiting diarrhea. Patient states that she's had 3 days of vomiting diarrhea. Patient also complains of feeling very dizzy, worse with movement and lightheaded. Patient states that she had a gastric bypass by Dr. Garg February 2018. Patient states that her pain is diffuse from her vomiting. Patient has no dysuria no hematuria denies any chance . Denies any known sick contacts. - Related Data Home Medications Medication Instructions Recorded Confirmed Oxybutynin Chloride [Ditropan] 10 mg PO QAM 04/29/14 04/14/18 Zonisamide 200 mg PO HS 04/06/15 04/14/18 Gabapentin [Neurontin] 600 mg PO TID 03/18/16 04/14/18 SUMAtriptan SUCCINATE [Imitrex] 50 mg PO BID PRN 03/18/16 04/14/18 Sertraline HCl [Zoloft] 200 mg PO DAILY 03/11/17 04/14/18 Loratadine [Claritin] 10 mg PO DAILY 04/29/17 04/14/18 QUEtiapine [SEROquel] 50 mg PO HS 04/29/17 04/14/18 ARIPiprazole [Abilify] 10 mg PO HS 01/27/18 04/14/18 Albuterol Inhaler [Ventolin Hfa 90 mcg INHALATION RT-QID PRN 01/29/18 04/14/18 Inhaler] cloNIDine HCL 0.3 mg PO HS 02/08/18 04/14/18 Setlakin 1 tab PO DAILY 03/25/18 traMADol HCl [Ultram] 50 mg PO TID 03/25/18 04/14/18 Previous Rx's Medication Instructions Recorded Simethicone 40 mg/0.6 ml Drops 40 mg PO PCHS PRN #30 ml 02/09/18 [Mylicon Drops] Nystatin 100,000 Unit/gm Powd 1 applic TOPICAL BID #60 powder 03/10/18 [Mycostatin Powder] Omeprazole 40 mg PO DAILY #90 capsule. 03/26/18 Sucralfate [Carafate] 1 gm PO BID #560 ml 03/26/18 Ondansetron Odt [Zofran Odt] 4 mg PO Q8HR PRN #10 tab 05/11/18 Allergies Allergy/AdvReac Type Severity Reaction Status Date / Time codeine Allergy Dyspnea Verified 05/10/18 23:20 morphine AdvReac Dyspnea Verified 05/10/18 23:20 DURMABOND AdvReac Swelling Uncoded 05/10/18 23:20 Review of Systems ROS Statement: Those systems with pertinent positive or pertinent negative responses have been documented in the HPI. ROS Other: All systems not noted in ROS Statement are negative. Past Medical History Past Medical History: Asthma Additional Past Medical History / Comment(s): ABD PAIN, migraines, DDD, IBS, overactive bladder, chronic back pain, gastrojejunal ulcer (dx 03-26-18) History of Any Multi-Drug Resistant Organisms: MRSA Date of last positivie culture/infection: 11/08/17 MDRO Source:: LT INNER THIGH Past Surgical History: Bariatric Surgery, Cholecystectomy, Ear Surgery Additional Past Surgical History / Comment(s): tubes in ears, EGD, lap choly , laparoscopic kimberly-en-y 02-08-2018 Past Anesthesia/Blood Transfusion Reactions: No Reported Reaction Past Psychological History: Depression Smoking Status: Never smoker Past Alcohol Use History: None Reported Past Drug Use History: None Reported - Past Family History Mother Family Medical History: No Reported History General Exam Limitations: no limitations General appearance: alert, in no apparent distress Head exam: Present: atraumatic, normocephalic, normal inspection Eye exam: Present: normal appearance, PERRL, EOMI. Absent: scleral icterus, conjunctival injection, periorbital swelling ENT exam: Present: normal oropharynx Neck exam: Present: normal inspection. Absent: tenderness, meningismus, lymphadenopathy Respiratory exam: Present: normal lung sounds bilaterally. Absent: respiratory distress, wheezes, rales, rhonchi, stridor Cardiovascular Exam: Present: regular rate, normal rhythm, normal heart sounds. Absent: systolic murmur, diastolic murmur, rubs, gallop, clicks GI/Abdominal exam: Present: soft, tenderness (Mild diffuse), normal bowel sounds. Absent: distended, guarding, rebound, rigid Psychiatric exam: Present: normal affect, normal mood Course Vital Signs 05/10/18 05/11/18 23:15 02:59 Temperature 98.2 F Pulse Rate 78 61 Respiratory 20 16 Rate Blood Pressure 151/102 147/95 O2 Sat by Pulse 99 100 Oximetry Medical Decision Making - Medical Decision Making 22-year-old female presented from for nausea vomiting dizziness. Patient suddenly mildly dehydrated. She was hydrated with 2 L of fluid, patient did have lab work and CT of her abdomen which is negative for acute process. Patient will be discharged with antibiotics and follow-up with her general surgeon. Return parameters were discussed. - Lab Data Result diagrams: 05/11/18 03:00 05/11/18 03:00 Lab Results 05/11/18 05/11/18 05/11/18 Range/Units 00:10 00:10 03:00 WBC 6.8 (3.8-10.6) k/uL RBC 4.98 (3.80-5.40) m/uL Hgb 15.0 (11.4-16.0) gm/dL Hct 46.3 H (34.0-46.0) % MCV 92.8 (80.0-100.0) fL MCH 30.2 (25.0-35.0) pg MCHC 32.5 (31.0-37.0) g/dL RDW 13.9 (11.5-15.5) % Plt Count 188 (150-450) k/uL Sodium (137-145) mmol/L Potassium (3.5-5.1) mmol/L Chloride (98-107) mmol/L Carbon Dioxide (22-30) mmol/L Anion Gap mmol/L BUN (7-17) mg/dL Creatinine (0.52-1.04) mg/dL Est GFR (CKD-EPI)AfAm (>60 ml/min/1.73 sqM) Est GFR (CKD-EPI)NonAf (>60 ml/min/1.73 sqM) Glucose (74-99) mg/dL Calcium (8.4-10.2) mg/dL Magnesium (1.6-2.3) mg/dL Total Bilirubin (0.2-1.3) mg/dL AST (14-36) U/L ALT (9-52) U/L Alkaline Phosphatase (38-126) U/L Total Protein (6.3-8.2) g/dL Albumin (3.5-5.0) g/dL Lipase (23-300) U/L Urine Color Dark Yellow Urine Appearance Cloudy H (Clear) Urine pH 6.5 (5.0-8.0) Ur Specific [place] 1.027 (1.001-1.035) Urine Protein 1+ H (Negative) Urine Glucose (UA) Negative (Negative) Urine Ketones 1+ H (Negative) Urine Blood Moderate H (Negative) Urine Nitrite Negative (Negative) Urine Bilirubin 2+ H (Negative) Urine Urobilinogen 8.0 (<2.0) mg/dL Ur Leukocyte Esterase Moderate H (Negative) Urine RBC 29 H (0-5) /hpf Urine WBC 16 H (0-5) /hpf Ur Squamous Epith Cells 15 H (0-4) /hpf Urine Bacteria Rare H (None) /hpf Urine Mucus Many H (None) /hpf Urine HCG, Qual Not Detected (Not Detectd) 05/11/18 Range/Units 03:00 WBC (3.8-10.6) k/uL RBC (3.80-5.40) m/uL Hgb (11.4-16.0) gm/dL Hct (34.0-46.0) % MCV (80.0-100.0) fL MCH (25.0-35.0) pg MCHC (31.0-37.0) g/dL RDW (11.5-15.5) % Plt Count (150-450) k/uL Sodium 141 (137-145) mmol/L Potassium 3.3 L (3.5-5.1) mmol/L Chloride 103 (98-107) mmol/L Carbon Dioxide 24 (22-30) mmol/L Anion Gap 14 mmol/L BUN 5 L (7-17) mg/dL Creatinine 0.62 (0.52-1.04) mg/dL Est GFR (CKD-EPI)AfAm >90 (>60 ml/min/1.73 sqM) Est GFR (CKD-EPI)NonAf >90 (>60 ml/min/1.73 sqM) Glucose 99 (74-99) mg/dL Calcium 10.1 (8.4-10.2) mg/dL Magnesium 1.8 (1.6-2.3) mg/dL Total Bilirubin 0.8 (0.2-1.3) mg/dL AST 41 H (14-36) U/L ALT 87 H (9-52) U/L Alkaline Phosphatase 100 (38-126) U/L Total Protein 7.6 (6.3-8.2) g/dL Albumin 4.6 (3.5-5.0) g/dL Lipase 257 (23-300) U/L Urine Color Urine Appearance (Clear) Urine pH (5.0-8.0) Ur Specific [place] (1.001-1.035) Urine Protein (Negative) Urine Glucose (UA) (Negative) Urine Ketones (Negative) Urine Blood (Negative) Urine Nitrite (Negative) Urine Bilirubin (Negative) Urine Urobilinogen (<2.0) mg/dL Ur Leukocyte Esterase (Negative) Urine RBC (0-5) /hpf Urine WBC (0-5) /hpf Ur Squamous Epith Cells (0-4) /hpf Urine Bacteria (None) /hpf Urine Mucus (None) /hpf Urine HCG, Qual (Not Detectd) Disposition Clinical Impression: Gastroenteritis, Vertigo Disposition: HOME SELF-CARE Condition: Stable Instructions: Acute Nausea and Vomiting (ED) Additional Instructions: Please return to the Emergency Department if symptoms worsen or any other concerns. Prescriptions: Ondansetron Odt [Zofran Odt] 4 mg PO Q8HR PRN #10 tab PRN Reason: Nausea Is patient prescribed a controlled substance at d/c from ED?: No Referrals: Parminder Torres DO [Primary Care Provider] - 1-2 days Time of Disposition: 04:06
[2018-05-11] MEDS ORDERED: IOPAMIDOL-300 CONTRAST 30 ML VIAL (ORAL USE) PO PRN (00:19)
[2018-05-11 00:42] LABS: Appearance,Urine Cloudy (Clear); Bacteria,Urine Rare /hpf; Bilirubin,Urine 2+ (Negative); Blood,Urine Moderate (Negative); Color,Urine Dark Yellow; Glucose,Urine (UA) Negative (Negative); Ketones,Urine 1+ (Negative); Leukocyte Esterase,Urine Moderate (Negative); Mucus,Urine Many /hpf; Nitrite,Urine Negative (Negative); PH, Urine 6.5 (5.0-8.0); Protein,Urine 1+ (Negative); RBC,Urine 29 /hpf (0-5); Specific Gravity,Urine 1.027 (1.001-1.035); Squamous Epithelial Cell,Urine 15 /hpf (0-4); WBC,Urine 16 /hpf (0-5)
[2018-05-11 03:00] VITALS: PULSE 61; RESP 16
[2018-05-11 03:16] LABS: Basophils % (A) 0 %; Eosinophils # (A) 0.1 k/uL (0-0.7); Eosinophils % (A) 1 %; HCT 46.3 % (34.0-46.0); Lymphocytes # (A) 1.7 k/uL (1.0-4.8); Lymphocytes % (A) 25 %; MCH 30.2 pg (25.0-35.0); MCHC 32.5 g/dL (31.0-37.0); MCV 92.8 fL (80.0-100.0); Mean Platelet Volume 10.4; Monocytes # (A) 0.3 k/uL (0-1.0); Monocytes % (A) 5 %; Neutrophils # (A) 4.6 k/uL (1.3-7.7); Neutrophils % (A) 68 %; Platelet Count 188 k/uL (150-450); RBC 4.98 m/uL (3.80-5.40); RDW 13.9 % (11.5-15.5); WBC 6.8 k/uL (3.8-10.6)
[2018-05-11 03:26] LABS: ALT 87 U/L (9-52); AST 41 U/L (14-36); Albumin 4.6 g/dL (3.5-5.0); Alkaline Phosphatase 100 U/L (38-126); Anion Gap 14 mmol/L; Blood Urea Nitrogen 5 mg/dL (7-17); Calcium 10.1 mg/dL (8.4-10.2); Carbon Dioxide 24 mmol/L (22-30); Chloride 103 mmol/L (98-107); Glucose 99 mg/dL (74-99); Lipase 257 U/L (23-300); Magnesium 1.8 mg/dL (1.6-2.3); Potassium 3.3 mmol/L (3.5-5.1); Sodium 141 mmol/L (137-145); Total Bilirubin 0.8 mg/dL (0.2-1.3); Total Protein 7.6 g/dL (6.3-8.2)
--- NOTE | 2018-05-11 03:28 | CT ---
EXAMINATION TYPE: CT abdomen pelvis w con DATE OF EXAM: 05/11/2018 COMPARISON: None HISTORY: abd pain CT DLP: 1640.8 mGycm Automated exposure control for dose reduction was used. TECHNIQUE: Helical acquisition of images was performed from the lung bases through the pelvis. CONTRAST: Performed with Oral Contrast and with IV Contrast, patient injected with 100 mL of Isovue 300. FINDINGS: Lung bases are clear. There is no pleural effusion. Heart size is normal. There is no pericardial eff usion. Liver and spleen appear normal. Pancreas appears normal. There are clips from bariatric surgery. Ther e is a 1 cm cyst in the right lobe of the liver. There is no adrenal mass. Kidneys show satisfactory contrast opacification. There is no hydronephrosi s. Ureters are not dilated. I see no intestinal wall thickening. There are no dilated loops. The appe ndix appears normal. There is no inguinal hernia. There is no free fluid in the pelvis. Bladder is em pty. Uterus is anteverted. There is no evidence of a bowel obstruction. There is no mesenteric edema. Bony structures are intact. Bony pelvis appears normal. There is no free air. IMPRESSION: NEGATIVE CT SCAN ABDOMEN AND PELVIS. BARIATRIC SURGERY.
[2018-05-11] MEDS ORDERED: FAMOTIDINE 20 MG/2 ML VIAL IV STA (04:04)
[2018-05-11] MEDS ORDERED: ACETAMINOPHEN IV (For NPO) 1,000 MG in EMPTY BAG 1 BAG IVPB STA (04:04)
[2018-05-11] MEDS ORDERED: MECLIZINE 12.5 MG TAB PO STA (04:04)
[2018-05-11 04:28] LABS: Large Platelets Present
[2018-05-11 04:29] LABS: Anisocytosis (M) Present; Polychromasia Present
[2018-05-11 04:30] LABS: Poikilocytosis (M) Present
[2018-05-11 04:55] VITALS: BP 150/100
== END 2018-05-11 05:28 | disposition home or self-care (01) ==
LOC: EC 23:13
DX: K52.9 Noninfective gastroenteritis and colitis, unspecified (principal); R42 Dizziness and giddiness; E86.0 Dehydration; J45.909 Unspecified asthma, uncomplicated; G43.909 Migraine, unspecified, not intractable, without status migrainosus; N32.81 Overactive bladder; M54.9 Dorsalgia, unspecified; G89.29 Other chronic pain; F32.9 Major depressive disorder, single episode, unspecified; Z86.14 Personal history of Methicillin resistant Staphylococcus aureus infection; Z79.891 Long term (current) use of opiate analgesic; Z79.3 Long term (current) use of hormonal contraceptives; Z79.899 Other long term (current) drug therapy; Z88.5 Allergy status to narcotic agent; Z91.048 Other nonmedicinal substance allergy status; Z90.49 Acquired absence of other specified parts of digestive tract; Z98.84 Bariatric surgery status
CPT/HCPCS: 99284; 96374; 96375 ×2; 96361 ×2; 36415; 80053; 83690; 83735; 85025; 81001; 81025; 74177; J2405; J0131; Q9967

== ENCOUNTER → 2018-05-13 | Outpatient (CLI) | payer OTHER ==
[2018-05-13 12:22] VITALS: BP 139/101; PULSE 101; RESP 18; TEMP 98.2
[2018-05-13] MEDS: SODIUM CHLORIDE 0.9% 1,000 ML IV SCH ×2 (12:31→13:20)
[2018-05-13 16:12] LABS: HCT 45.8 % (34.0-46.0); HGB 14.9 gm/dL (11.4-16.0); MCHC 32.5 g/dL (31.0-37.0); MCV 92.4 fL (80.0-100.0); Mean Platelet Volume 11.2; Platelet Count 165 k/uL (150-450); RBC 4.95 m/uL (3.80-5.40); WBC 7.4 k/uL (3.8-10.6)
[2018-05-13 16:21] LABS: INR 1.1 (<1.2); Partial Thromboplastin Time 24.8 sec (22.0-30.0); Prothrombin Time 11.5 sec (9.0-12.0)
[2018-05-13 16:27] LABS: ALT 61 U/L (9-52); AST 29 U/L (14-36); Albumin 4.4 g/dL (3.5-5.0); Alkaline Phosphatase 90 U/L (38-126); Anion Gap 16 mmol/L; Blood Urea Nitrogen 5 mg/dL (7-17); Calcium 9.6 mg/dL (8.4-10.2); Carbon Dioxide 20 mmol/L (22-30); Chloride 105 mmol/L (98-107); Cholesterol 146 mg/dL (<200); Glucose 94 mg/dL (74-99); HDL Cholesterol 55 mg/dL (40-60); LDL Cholesterol,Calculated 71 mg/dL (0-99); Magnesium 1.6 mg/dL (1.6-2.3); Phosphorus 3.7 mg/dL (2.5-4.5); Potassium 3.9 mmol/L (3.5-5.1); Sodium 141 mmol/L (137-145); Total Bilirubin 1.2 mg/dL (0.2-1.3); Total Protein 7.3 g/dL (6.3-8.2); Triglycerides 101 mg/dL (<150)
[2018-05-14 04:23] LABS: Vitamin D 25 Hydroxy 24.3 ng/mL (30.0-100.0)
[2018-05-14 04:24] LABS: Folate, Serum 5.4 ng/mL
[2018-05-14 04:26] LABS: Iron Saturation 23.51 (12.00-45.00)
[2018-05-14 04:44] LABS: Parathyroid Hormone Intact 49.1 pg/mL (14.0-72.0)
[2018-05-14 05:50] LABS: Hemoglobin A1C 5.2 % (4.0-6.0)
[2018-05-14 14:02] LABS: Vitamin B1 13 ug/L (38-122)
[2018-05-14 14:29] LABS: Zinc, Serum 96 ug/dL (60-130)
[2018-05-15 11:01] LABS: Vitamin A 39 ug/dL (38-106)
== END ==
LOC: PROCWHC3 12:00
PROVIDERS: ATTEND Surgery Plastic and Reconstructive Surgery
DX: E86.0 Dehydration (principal); E66.01 Morbid (severe) obesity due to excess calories; E21.1 Secondary hyperparathyroidism, not elsewhere classified; E89.1 Postprocedural hypoinsulinemia; D50.9 Iron deficiency anemia, unspecified; E44.0 Moderate protein-calorie malnutrition; E55.9 Vitamin D deficiency, unspecified; K74.1 Hepatic sclerosis; N19 Unspecified kidney failure; K50.90 Crohn's disease, unspecified, without complications; Z68.41 Body mass index [BMI] 40.0-44.9, adult
CPT/HCPCS: 80053; 80061; 82306; 82525; 82607; 82728; 82746; 83036; 83540; 83550; 83735; 83970; 84100; 84134; 84255; 84425; 84443; 84590; 84630; 85027; 85610; 85730; 96360; 96361

== ENCOUNTER 2018-05-19 10:03 | Inpatient (IN) | payer OTHER ==
--- NOTE | 2018-05-19 08:55 | P.GSHP ---
History of Present Illness H&P Date: 05/19/18 CHIEF COMPLAINT: GERD HISTORY OF PRESENT ILLNESS: The patient is a 22-year-old female who presents reports gastroesophageal reflux disease. Upper endoscopy was offered for further evaluation and management. PAST MEDICAL HISTORY: Please see list. PAST SURGICAL HISTORY: Please see list. MEDICATIONS: Please see list. ALLERGIES: Please see list. SOCIAL HISTORY: No illicit drug use FAMILY HISTORY: No reports of Crohn disease or ulcerative colitis. REVIEW OF ORGAN SYSTEMS: CONSTITUTIONAL: No reports of fevers or chills. GI: Denies any blood in stools or constipation. PHYSICAL EXAM: VITAL SIGNS: Stable GENERAL: Well-developed and pleasant in no acute distress. HEENT: No scleral icterus. Extraocular movements grossly intact. Moist buccal mucosa. NECK: Supple without lymphadenopathy. CHEST: Unlabored respirations. Equal bilateral excursions. CARDIOVASCULAR: Regular rate and rhythm. Distal 2+ pulses. ABDOMEN: Soft, nondistended. MUSCULOSKELETAL: No clubbing, cyanosis, or edema. ASSESSMENT: 1. Gastroesophageal reflux disease PLAN: 1. Recommend proceeding with an upper endoscopy Past Medical History Past Medical History: Asthma Additional Past Medical History / Comment(s): ABD PAIN, migraines, DDD, IBS, overactive bladder, chronic back pain, gastrojejunal ulcer (dx 03-26-18) History of Any Multi-Drug Resistant Organisms: MRSA Date of last positivie culture/infection: 11/08/17 MDRO Source:: LT INNER THIGH Past Surgical History: Bariatric Surgery, Cholecystectomy, Ear Surgery Additional Past Surgical History / Comment(s): tubes in ears, EGD, lap choly , laparoscopic kimberly-en-y 02-08-2018 Past Anesthesia/Blood Transfusion Reactions: No Reported Reaction Smoking Status: Never smoker - Past Family History Mother Family Medical History: No Reported History Medications and Allergies Home Medications Medication Instructions Recorded Confirmed Type Oxybutynin Chloride [Ditropan] 10 mg PO QAM 04/29/14 05/18/18 History Zonisamide 200 mg PO HS 04/06/15 05/18/18 History Gabapentin [Neurontin] 600 mg PO TID 03/18/16 05/18/18 History SUMAtriptan SUCCINATE [Imitrex] 50 mg PO BID PRN 03/18/16 05/18/18 History Sertraline HCl [Zoloft] 200 mg PO HS 03/11/17 05/18/18 History Loratadine [Claritin] 10 mg PO DAILY 04/29/17 05/18/18 History QUEtiapine [SEROquel] 50 mg PO HS 04/29/17 05/18/18 History ARIPiprazole [Abilify] 10 mg PO HS 01/27/18 05/18/18 History Albuterol Inhaler [Ventolin Hfa 90 mcg INHALATION RT-QID PRN 01/29/18 05/18/18 History Inhaler] cloNIDine HCL 0.3 mg PO HS 02/08/18 05/18/18 History Simethicone 40 mg/0.6 ml Drops 40 mg PO PCHS PRN #30 ml 02/09/18 05/18/18 Rx [Mylicon Drops] Nystatin 100,000 Unit/gm Powd 1 applic TOPICAL BID #60 powder 03/10/18 05/18/18 Rx [Mycostatin Powder] Setlakin 1 tab PO HS 03/25/18 05/18/18 History traMADol HCl [Ultram] 50 mg PO TID PRN 03/25/18 05/18/18 History Omeprazole 40 mg PO DAILY #90 capsule. 03/26/18 05/18/18 Rx Sucralfate [Carafate] 1 gm PO BID #560 ml 03/26/18 05/18/18 Rx Ondansetron Odt [Zofran Odt] 4 mg PO Q8HR PRN #10 tab 05/11/18 05/18/18 Rx Allergies Allergy/AdvReac Type Severity Reaction Status Date / Time codeine Allergy Dyspnea Verified 05/18/18 12:09 morphine AdvReac Dyspnea Verified 05/18/18 12:09 DURMABOND AdvReac Swelling Uncoded 05/18/18 12:09
[~2018-05-19 10:03] MED LIST changes: -LACTATED RINGERS 1,000 ML IV SCH
[2018-05-19] MEDS: LACTATED RINGERS 1,000 ML IV SCH (10:52)
[2018-05-19] MEDS ORDERED: PROPOFOL 10 MG/ML 20 ML VIAL IV ONE (11:23)
[2018-05-19] MEDS ORDERED: NALOXONE 0.4 MG/ML 1 ML VIAL IV PRN (11:24)
--- NOTE | 2018-05-19 11:43 | P.HPADDEND ---
H&P Addendum H&P Addendum Date: 05/19/18 Recent laboratory work now reviewed consistent with severe and acute onset of Wernicke-Korsakoff syndrome with diplopia, confusion, weakness and disturbed gait needing immediate IV thiamine infusion and correction of nutrition.
[2018-05-19] MEDS ORDERED: ALBUTEROL NEBULIZED 2.5 MG/3 ML INHALATION PRN (11:48)
--- NOTE | 2018-05-19 12:04 | P.PCN ---
Date of Procedure: 05/19/18 Description of Procedure: PREOPERATIVE DIAGNOSIS: Dysphagia. Esophageal obstruction Gastric obstruction Nausea with vomiting. Morbid obesity. POSTOPERATIVE DIAGNOSIS: Dysphagia. Nausea with vomiting. Morbid obesity. 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 SURGEON: Evie Garg MD ANESTHESIA: MAC. INDICATIONS: The patient is a 22-year-old female who presents with a history of dysphagia, esophageal strut nausea and vomiting. Benefits and risks of the procedure were described. Informed consent was obtained. DESCRIPTION: The patient was brought into the endoscopy suite and laid in the left lateral decubitus position. After a timeout was confirmed, the procedure was initiated. An Olympus gastroscope was passed along the posterior oropharynx down to the distal esophagus where the squamocolumnar junction was unremarkable. The gastric pouch was entered. A gastrojejunal stricture of 8 mm was found as the adult gastroscope was 9.5 mm in size. A [employer] balloon dilator was placed through the scope. Final insufflation up to 15 mm was performed with a total of 2 minutes. The scope was advanced up to 60 cm from the incisors into the Cecil limb. The mucosa of the gastrojejunal anastomosis was intact. Resolved chronic gastrojejunal marginal ulcer was encountered. No full-thickness injury was encountered. The GI tract was desufflated. The patient tolerated the procedure well. FINDINGS: Diaphragmatic hiatal hernia, 2 cm Stricture of approximately 8 mm encountered. Resolved chronic gastrojejunal ulceration encountered. Successful balloon dilatation to 15 mm. RECOMMENDATIONS: 1. Bariatric clear liquid diet
[2018-05-19] MEDS: THIAMINE 200 MG in SODIUM CHLORIDE 0.9% 100 ML IVPB ONE ×2 (12:28→13:00)
[2018-05-19] MEDS: SODIUM CHLORIDE 0.9% 1,000 ML IV SCH ×4 (13:00→21:31)
[2018-05-19 13:47] LABS: Glucose,Whole Blood 97 mg/dL (75-99)
[2018-05-19 16:30] LABS: Glucose,Whole Blood 72 mg/dL (75-99)
[2018-05-19] MEDS ORDERED: SODIUM CHLORIDE 0.9% 2,000 ML IV ONE (19:17)
[2018-05-19 20:41] LABS: Glucose,Whole Blood 74 mg/dL (75-99)
[2018-05-19] MEDS: THIAMINE 200 MG in SODIUM CHLORIDE 0.9% 100 ML IVPB SCH (21:31)
[2018-05-19] MEDS: HYDROmorphone 1 MG/ML 1 ML SYRINGE IVP PRN (23:11)
[2018-05-20] MEDS: LACTATED RINGERS 1,000 ML IV SCH (00:23)
[2018-05-20] MEDS: SODIUM CHLORIDE 0.9% 1,000 ML IV SCH (02:52)
--- NOTE | 2018-05-20 04:44 | P.PN ---
Progress Note - Text Progress Note Date: 05/19/18 Medication reconciliation reviewed performed with many home medications with contributing side effects of dizziness, gait imbalance, vision disturbance, abdominal pain overlapping with patient's symptoms. She has moderate recent weight loss of 82 pounds in 3 months including acute intractable nausea and vomiting for the last 2+ weeks increasing risk of toxicity and adverse potential reactions of her current home medications. As a result, all home medications are held with nutritional support and correction of acute electrolyte abnormalities.
[2018-05-20 05:44] LABS: Glucose,Whole Blood 68 mg/dL (75-99)
[2018-05-20] MEDS ORDERED: ONDANSETRON 4 MG/2 ML VIAL IVP PRN (06:00)
[2018-05-20 06:08] LABS: Basophils % (A) 1 %; Eosinophils # (A) 0.1 k/uL (0-0.7); Eosinophils % (A) 2 %; HCT 46.1 % (34.0-46.0); Lymphocytes % (A) 34 %; MCH 30.3 pg (25.0-35.0); MCHC 32.6 g/dL (31.0-37.0); MCV 92.9 fL (80.0-100.0); Mean Platelet Volume 10.5; Monocytes # (A) 0.3 k/uL (0-1.0); Monocytes % (A) 5 %; Neutrophils # (A) 3.3 k/uL (1.3-7.7); Neutrophils % (A) 56 %; Platelet Count 147 k/uL (150-450); RBC 4.96 m/uL (3.80-5.40); RDW 13.8 % (11.5-15.5); WBC 5.9 k/uL (3.8-10.6)
[2018-05-20 06:26] LABS: ALT 44 U/L (9-52); AST 32 U/L (14-36); Albumin 3.9 g/dL (3.5-5.0); Alkaline Phosphatase 66 U/L (38-126); Anion Gap 11 mmol/L; Blood Urea Nitrogen 7 mg/dL (7-17); Calcium 9.7 mg/dL (8.4-10.2); Carbon Dioxide 24 mmol/L (22-30); Chloride 105 mmol/L (98-107); Glucose 73 mg/dL (74-99); Magnesium 1.6 mg/dL (1.6-2.3); Potassium 3.7 mmol/L (3.5-5.1); Sodium 140 mmol/L (137-145); Total Bilirubin 1.3 mg/dL (0.2-1.3); Total Protein 6.5 g/dL (6.3-8.2)
[2018-05-20 06:36] LABS: Glucose,Whole Blood 67 mg/dL (75-99)
[2018-05-20] MEDS: 0.9% NACL WITH KCL 40 MEQ/L 1,000 ML IV SCH ×3 (06:54→19:47)
[2018-05-20] MEDS: MAGNESIUM SULFATE-D5W PMX 1 GM in DEXTROSE/WATER 1 100ML.BAG IVPB SCH ×4 (06:54→12:25)
[2018-05-20 07:06] LABS: Glucose,Whole Blood 68 mg/dL (75-99)
[2018-05-20 07:25] LABS: Glucose,Whole Blood 78 mg/dL (75-99)
--- NOTE | 2018-05-20 08:49 | CT ---
EXAMINATION TYPE: CT brain wo/w con DATE OF EXAM: 05/20/2018 COMPARISON: Correlation MRI 06/14/2016 HISTORY: 22-year-old female Neurological changes, double-triple vision, cannot walk, evaluate for isc hemia. TECHNIQUE: Examination was done in axial plane before and after administration of 100 mL Isovue-300 intravenous contrast. Coronal and sagittal reconstructions performed. CT DLP: 1972.5 mGycm Automated exposure control for dose reduction was used. FINDINGS: There is no evidence of acute intracranial hemorrhage, acute ischemic changes, mass, mass-effect, or extra-axial fluid collection. There is no effacement of cerebral sulci or basal subarachnoid cister ns. There is no hydrocephalus. There is no midline shift. [place]-white matter distinction is preserv ed. Partially empty sella incidentally noted. Paranasal sinuses and mastoid air cells are well pneumatized. Orbits and globes are intact. Following contrast administration, dural venous sinuses appear patent. No enhancing intracranial lesi ons are seen. IMPRESSION: No acute intracranial abnormality seen. No enhancing intracranial lesions identified.
[2018-05-20] MEDS: CYANOCOBALAMIN 1,000 MCG/ML 1 ML VIAL IM SCH (08:58)
[2018-05-20] MEDS: PANTOPRAZOLE 40 MG/10 ML VIAL IVP SCH (08:58)
[2018-05-20] MEDS: THIAMINE 200 MG in SODIUM CHLORIDE 0.9% 100 ML IVPB SCH ×2 (08:58→20:05)
[2018-05-20 10:07] LABS: Glucose,Whole Blood 76 mg/dL (75-99)
[2018-05-20] MEDS: HYDROmorphone 1 MG/ML 1 ML SYRINGE IVP PRN ×2 (11:27→21:46)
[2018-05-20 12:02] LABS: Glucose,Whole Blood 80 mg/dL (75-99)
[2018-05-20] MEDS ORDERED: SODIUM CHLORIDE 0.9% 2,000 ML IV ONE (12:23)
--- NOTE | 2018-05-20 12:25 | P.PN ---
Subjective Progress Note Date: 05/20/18 CHIEF COMPLAINT: Dysphagia with new onset weakness and blurred vision HISTORY OF PRESENT ILLNESS: The patient is a 22-year-old female with history of gastric bypass who came in with intractable nausea and vomiting secondary to gastrojejunal stricture. Since dilation, she is tolerating liquids. She came in with severe thiamine deficiency for concern of Wernicke-Korsakoff syndrome. She has been treated with thiamine and reports some improvement of her vision. She is yet to ambulate. Head CT obtained to evaluate for her neurological changes. PHYSICAL EXAM: VITAL SIGNS: Reviewed GENERAL: Well-developed in no acute distress. HEENT: No sclera icterus. Extraocular movements grossly intact. Moist buccal mucosa. Head is atraumatic, normocephalic. Hears conversational speech. No nasal drainage. NECK: Supple without lymphadenopathy. CHEST: Non-labored respirations and equal bilateral excursions. CARDIOVASCULAR: Palpable 2+ radial pulses. ABDOMEN: Soft. Nondistended. No peritonitis. Nontender MUSCULOSKELETAL: No clubbing, cyanosis or edema. NEUROLOGIC: No focal or lateralizing signs. Cranial nerves II through XII grossly intact. PSYCH: Appropriate affect. Alert and oriented to person, place and time. SKIN: Well perfused. Good skin turgor. ASSESSMENT: 1. Gastrojejunal stricture 2. Severe thiamine deficiency with Wernicke-Korsakoff syndrome 3. History of intractable nausea and vomiting 4. History of gastric bypass 5. Generalized weakness 6. New onset diplopia, improving PLAN: 1. Overall, double vision slightly improved. 2. I have discontinued all her home medications described as now may be toxic doses with her recent almost 100 pounds weight loss in 3 months. 3. Patient has Dr. Delgado for neurologist. Patient prefers to stay also risks of neurological decline was described. She is still unsteady on her feet. 4. IV fluid hydration for dehydration secondary to intractable nausea and vomiting 5. Magnesium supplement for low magnesium 6. Thiamine supplement continued 7. Head CT negative 8. Continue hospitalization Objective - Vital Signs Vital signs: Vital Signs Temp 97.5 F L 05/20/18 08:50 Pulse 84 05/20/18 11:31 Resp 16 05/20/18 11:31 BP 146/85 05/20/18 11:31 Pulse Ox 98 05/20/18 11:31 Intake & Output 05/19/18 05/20/18 05/20/18 18:59 06:59 18:59 Intake Total 1672 100 Output Total 300 Balance 1672 100 -300 Weight 126.5 kg Intake: IV 1552 Oral 120 100 Output: Urine 300 Other: # Voids 1 1 - Labs CBC & Chem 7: 05/20/18 05:43 05/20/18 05:43 Labs: Abnormal Lab Results - Last 24 Hours (Table) 05/19/18 05/19/18 05/20/18 Range/Units 16:25 20:39 05:42 Hct (34.0-46.0) % Plt Count (150-450) k/uL Creatinine (0.52-1.04) mg/dL Glucose (74-99) mg/dL POC Glucose (mg/dL) 72 L 74 L 68 L (75-99) mg/dL 05/20/18 05/20/18 05/20/18 Range/Units 05:43 05:43 06:34 Hct 46.1 H (34.0-46.0) % Plt Count 147 L (150-450) k/uL Creatinine 0.49 L (0.52-1.04) mg/dL Glucose 73 L (74-99) mg/dL POC Glucose (mg/dL) 67 L (75-99) mg/dL 05/20/18 Range/Units 07:03 Hct (34.0-46.0) % Plt Count (150-450) k/uL Creatinine (0.52-1.04) mg/dL Glucose (74-99) mg/dL POC Glucose (mg/dL) 68 L (75-99) mg/dL - Imaging and Cardiology CT Scan - head: report reviewed, image reviewed (Studies negative for ischemia or stroke) Assessment and Plan (1) Gastric bypass status for obesity Current Visit: Yes Status: Acute Code(s): Z98.84 - BARIATRIC SURGERY STATUS SNOMED Code(s): 981338707 (2) Intractable nausea and vomiting Current Visit: Yes Status: Acute Code(s): R11.2 - NAUSEA WITH VOMITING, UNSPECIFIED SNOMED Code(s): 125855527 (3) Chronic pain syndrome Current Visit: Yes Status: Acute Code(s): G89.4 - CHRONIC PAIN SYNDROME SNOMED Code(s): 252833335 (4) Blurred vision Current Visit: Yes Status: Acute Code(s): H53.8 - OTHER VISUAL DISTURBANCES SNOMED Code(s): 491411838 (5) Gastrojejunal anastomotic stricture Current Visit: Yes Status: Acute Code(s): K91.89 - OTH POSTPROCEDURAL COMPLICATIONS AND DISORDERS OF DGSTV SYS SNOMED Code(s): 123522417 (6) Hypomagnesemia Current Visit: Yes Status: Acute Code(s): E83.42 - HYPOMAGNESEMIA SNOMED Code(s): 781966791 (7) Thiamine deficiency Current Visit: Yes Status: Acute Code(s): E51.9 - THIAMINE DEFICIENCY, UNSPECIFIED SNOMED Code(s): 381801754 (8) Weakness Current Visit: Yes Status: Acute Code(s): R53.1 - WEAKNESS SNOMED Code(s) : 72116603 (9) Wernicke-Korsakoff syndrome Current Visit: Yes Status: Acute Code(s): F04 - AMNESTIC DISORDER DUE TO KNOWN PHYSIOLOGICAL CONDITION SNOMED Code(s): 82947962 (10) Morbid obesity Current Visit: No Status: Acute Code(s): E66.01 - MORBID (SEVERE) OBESITY DUE TO EXCESS CALORIES SNOMED Code(s): 670679905 (11) Vertigo Current Visit: No Status: Acute Code(s): R42 - DIZZINESS AND GIDDINESS SNOMED Code(s): 735951130
[2018-05-20 14:01] VITALS: BMI 43.3
[2018-05-20 16:34] LABS: Glucose,Whole Blood 76 mg/dL (75-99)
[2018-05-20 20:56] LABS: Glucose,Whole Blood 93 mg/dL (75-99)
[2018-05-21 06:08] LABS: Glucose,Whole Blood 75 mg/dL (75-99)
[2018-05-21] MEDS: CYANOCOBALAMIN 1,000 MCG/ML 1 ML VIAL IM SCH (08:31)
[2018-05-21] MEDS: PANTOPRAZOLE 40 MG/10 ML VIAL IVP SCH (08:31)
[2018-05-21] MEDS: THIAMINE 200 MG in SODIUM CHLORIDE 0.9% 100 ML IVPB SCH (08:31)
[2018-05-21] MEDS: MAGNESIUM SULFATE-D5W PMX 1 GM in DEXTROSE/WATER 1 100ML.BAG IVPB SCH ×4 (09:46→13:58)
[2018-05-21] MEDS: 0.9% NACL WITH KCL 40 MEQ/L 1,000 ML IV SCH (11:33)
[2018-05-21 11:41] LABS: Glucose,Whole Blood 85 mg/dL (75-99)
--- NOTE | 2018-05-21 12:03 | P.PN ---
<Jocelyn Butcher - Last Filed: 05/21/18 12:01> Subjective Progress Note Date: 05/21/18 22-year-old female who underwent EGD with balloon dilation on 2018. The patient is also admitted for Wernicke-Korsakoff syndrome with diplopia, confusion, weakness and disturbed gait due to thiamine deficiency. Patient's magnesium is 1.8 and is currently being replaced. She remains on thiamine infusions 200 mg every 12 hours. Patient reports her vision has improved. She denies any further episodes of double vision. She states she occasionally has some blurred vision. Case was discussed with ROBSON Albarado, with Dr. Grimes office regarding possibility of transfer to tertiary center. Patient does not want to be transferred at this time. Neurology agreeable to keep patient at current facility unless her condition deteriorates. PHYSICAL EXAM: GENERAL: This is a 22-year-old female in no apparent distress at the time of examination. HEENT: Head is atraumatic, normocephalic. Pupils are equal, round, and reactive to light. Sclerae anicteric. Conjunctivae are clear. RESPIRATORY: Nonlabored respirations and equal bilateral excursions. CARDIOVASCULAR: Regular rate and rhythm. GASTROINTESTINAL: No distention noted. Abdomen soft and round. Normal active bowel sounds auscultated x 4 quadrants. No pain or tenderness noted upon palpation. INTEGUMENTARY: No cyanosis. No jaundice. No rashes noted. No cellulitis noted. EXTREMITIES: 2+ peripheral pulses. No evidence of peripheral edema. NEUROLOGIC: No focal or lateralizing signs. PSYCHIATRIC: Awake, alert, and oriented X 3. Appropriate affect. Intact judgement and insight. 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 Recheck labs in AM Continue IV fluids Anticipate discharge home on Thursday Follow-up with Dr. Butler 1-2 days post discharge Nurse practitioner note has been reviewed by physician. Signing provider agrees with the documented findings, assessment, and plan of care. Objective - Vital Signs Vital signs: Vital Signs Temp 97.5 F L 05/21/18 08:00 Pulse 85 05/21/18 11:28 Resp 17 05/21/18 11:28 BP 155/87 05/21/18 11:28 Pulse Ox 97 05/21/18 11:28 Intake & Output 05/20/18 05/21/18 05/21/18 18:59 06:59 18:59 Intake Total 800 1260 480 Output Total 1300 900 900 Balance -500 360 -420 Weight 126.5 kg 129 kg Intake: Intake, IV Titration 750 Amount 0.9% NaCl with KCl 40 Meq 650 /l 1,000 ml @ 100 mls/hr IV .Q10H ABDOUL Rx#: [id number] Thiamine 200 mg In Sodium 100 Chloride 0.9% 100 ml @ 200 mls/hr IVPB Q12HR ABDOUL Rx#:[id number] Oral 800 510 480 Output: Urine 1300 900 900 Other: Voiding Method Bedpan Bedpan # Voids 1 1 - Labs CBC & Chem 7: 05/20/18 05:43 05/20/18 05:43 Assessment and Plan (1) Wernicke-Korsakoff syndrome Current Visit: Yes Status: Acute Code(s): F04 - AMNESTIC DISORDER DUE TO KNOWN PHYSIOLOGICAL CONDITION SNOMED Code(s): 93975797 (2) Hypomagnesemia Current Visit: Yes Status: Acute Code(s): E83.42 - HYPOMAGNESEMIA SNOMED Code(s): 644802597 (3) Blurred vision Current Visit: Yes Status: Acute Code(s): H53.8 - OTHER VISUAL DISTURBANCES SNOMED Code(s): 413943303 (4) Weakness Current Visit: Yes Status: Acute Code(s): R53.1 - WEAKNESS SNOMED Code(s) : 91848587 (5) Thiamine deficiency Current Visit: Yes Status: Acute Code(s): E51.9 - THIAMINE DEFICIENCY, UNSPECIFIED SNOMED Code(s): 069079681 (6) Gastrojejunal anastomotic stricture Current Visit: Yes Status: Acute Code(s): K91.89 - OTH POSTPROCEDURAL COMPLICATIONS AND DISORDERS OF DGSTV SYS SNOMED Code(s): 550367398 (7) Morbid obesity Current Visit: No Status: Acute Code(s): E66.01 - MORBID (SEVERE) OBESITY DUE TO EXCESS CALORIES SNOMED Code(s): 049855403 <Evie Garg N - Last Filed: 05/21/18 16:31> Objective - Vital Signs Vital signs: Vital Signs Temp 98 F 05/21/18 15:43 Pulse 94 05/21/18 15:43 Resp 16 05/21/18 15:43 BP 141/88 05/21/18 15:43 Pulse Ox 96 05/21/18 15:43 Intake & Output 05/20/18 05/21/18 05/21/18 18:59 06:59 18:59 Intake Total 800 1260 720 Output Total 3843 564 7000 Balance -500 360 -780 Weight 126.5 kg 129 kg Intake: Intake, IV Titration 750 Amount 0.9% NaCl with KCl 40 Meq 650 /l 1,000 ml @ 100 mls/hr IV .Q10H ABDOUL Rx#: [id number] Thiamine 200 mg In Sodium 100 Chloride 0.9% 100 ml @ 200 mls/hr IVPB Q12HR ABDOUL Rx#:[id number] Oral 800 510 720 Output: Urine 8907 170 4954 Other: Voiding Method Bedpan Bedpan # Voids 1 1 - Labs CBC & Chem 7: 05/20/18 05:43 05/20/18 05:43 Assessment and Plan (1) Gastric bypass status for obesity Current Visit: Yes Status: Acute Code(s): Z98.84 - BARIATRIC SURGERY STATUS SNOMED Code(s): 474680034 (2) Intractable nausea and vomiting Current Visit: Yes Status: Acute Code(s): R11.2 - NAUSEA WITH VOMITING, UNSPECIFIED SNOMED Code(s): 797280149 (3) Chronic pain syndrome Current Visit: Yes Status: Acute Code(s): G89.4 - CHRONIC PAIN SYNDROME SNOMED Code(s): 009948678 (4) Blurred vision Current Visit: Yes Status: Acute Code(s): H53.8 - OTHER VISUAL DISTURBANCES SNOMED Code(s): 877069176 (5) Gastrojejunal anastomotic stricture Current Visit: Yes Status: Acute Code(s): K91.89 - OTH POSTPROCEDURAL COMPLICATIONS AND DISORDERS OF DGSTV SYS SNOMED Code(s): 456031564 (6) Hypomagnesemia Current Visit: Yes Status: Acute Code(s): E83.42 - HYPOMAGNESEMIA SNOMED Code(s): 346674756 (7) Thiamine deficiency Current Visit: Yes Status: Acute Code(s): E51.9 - THIAMINE DEFICIENCY, UNSPECIFIED SNOMED Code(s): 043931112 (8) Weakness Current Visit: Yes Status: Acute Code(s): R53.1 - WEAKNESS SNOMED Code(s) : 75980004 (9) Wernicke-Korsakoff syndrome Current Visit: Yes Status: Acute Code(s): F04 - AMNESTIC DISORDER DUE TO KNOWN PHYSIOLOGICAL CONDITION SNOMED Code(s): 12641340 (10) Morbid obesity Current Visit: No Status: Acute Code(s): E66.01 - MORBID (SEVERE) OBESITY DUE TO EXCESS CALORIES SNOMED Code(s): 159489583 (11) Vertigo Current Visit: No Status: Acute Code(s): R42 - DIZZINESS AND GIDDINESS SNOMED Code(s): 819274468 Plan: Patient had also reported tinnitus of the left ear. Consultation to ENT pending. Ophthalmology consultation has also been pending. Medicine consultation also pending. I personally spoke to the patient's neurologist office who also agreed for transfer for any neurological decline however agreeable with follow-up as outpatient on Thursday. Patient described the risk of continued hospitalization including likelihood of transfer for any neurological decline
[2018-05-21] MEDS: HYDROmorphone 1 MG/ML 1 ML SYRINGE IVP PRN (15:38)
[2018-05-21 15:43] VITALS: BP 141/88; PULSE 94; RESP 16; TEMP 98
[2018-05-21] MEDS ORDERED: GABAPENTIN 300 MG CAP PO SCH (16:15)
[2018-05-21] MEDS ORDERED: traMADol 50 MG TAB PO PRN (16:15)
--- NOTE | 2018-05-21 16:34 | P.PN ---
Progress Note - Text Progress Note Date: 05/21/18 I have been contacted by medicine team. 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 Patient now agreeable for transfer to tertiary care center.
[2018-05-21 17:29] LABS: Glucose,Whole Blood 87 mg/dL (75-99)
--- NOTE | 2018-05-21 19:47 | CONS ---
CONSULTATION DATE OF SERVICE: 05/21/2018. OPHTHALMOLOGY CONSULTATION REPORT: CHIEF COMPLAINT: Double vision. HISTORY OF PRESENT ILLNESS: Britt is a 22-year-old female with double vision for the last week. The patient reports she was in the hospital for a procedure and was noted to have double vision and was admitted for further workup. The patient has no blurriness or other ocular symptoms. The patient does report headaches as well. There is no eye pain. REVIEW OF SYSTEMS: As above, the patient notes headache. Patient also has nausea occasionally. Otherwise, review of systems is negative. PAST MEDICAL HISTORY: The patient reports no medical problems. PAST SURGICAL HISTORY: The patient was recently in the hospital for an EGD. Otherwise, no past surgical history. PAST OCULAR HISTORY: None. FAMILY HISTORY: Significant for Crohn's, inflammatory bowel disease and diabetes. ALLERGIES: NO KNOWN DRUG ALLERGIES. MEDICATIONS: No medications. OPHTHALMIC EXAMINATION: Visual acuity is 20/20 in the right eye and 20/20 in the left eye yet near with correction in both eyes. Intraocular pressure is within normal limits in both eyes. Extraocular movements are full; however, there is nystagmus on right gaze. Anterior examination was within normal limits. The lens is clear in both eyes. Remainder of the ophthalmic exam is generally within normal limits. ASSESSMENT AND PLAN: Nystagmus, bilateral. Patient has nystagmus on right gaze in both eyes. The patient reports that this is new onset. The potential differential diagnosis includes internuclear ophthalmoplegia. However, the patient does not have significant restriction of adduction in either eye. However, due to her age, other neurologic symptoms and the findings of nystagmus, internuclear ophthalmoplegia should be considered, and an associated diagnosis of multiple sclerosis needs to be ruled out with an MRI. The patient needs a neurologic evaluation to further determine the cause of her nystagmus. I also recommend that the patient follow up with me as an outpatient after discharge from the hospital. Thank you for allowing me to participate in this patient's care. MMODL / IJN: [id number] /
[2018-05-21] MEDS ORDERED: SERTRALINE 100 MG TAB PO SCH (21:00)
[2018-05-21] MEDS ORDERED: QUEtiapine 50 MG TAB PO SCH (21:00)
[2018-05-21] MEDS ORDERED: ZONISAMIDE 100 MG CAP PO SCH (21:00)
[2018-05-21] MEDS ORDERED: ARIPiprazole 10 MG TAB PO SCH (21:00)
[2018-05-21] MEDS ORDERED: cloNIDine HCL 0.1 MG TAB PO SCH (21:00)
--- NOTE | 2018-05-21 22:02 | CONS ---
CONSULTATION DATE OF CONSULTATION: 05/21/2018. REASON FOR CONSULTATION: Medical management, requested by Dr. Garg. CONSULTATION: This is a pleasant 22-year-old patient of Dr. Torres. The patient has undergone a Cecil-en-Y gastric bypass surgery on 02/08/2018. Patient presented with a multitude of symptoms. The patient had gone to visit her father in [facility] about 2 weeks ago, then patient noted that she started getting dizzy and started having more than diplopia, was seeing multiple objects, and she slowly started falling. She was also having some vomiting. She then started having some falls to the point that the patient's mother and brother had to bring her in. Because of the bariatric surgery, the patient had been on a pureed diet. The patient also noted that she was getting weak in the legs and numb in the legs. No use of any recreational drugs was mentioned. Patient had no fevers or chills. No involvement of bowel or urine. No headaches. The patient also had some tremors. Also patient has decreased sensation in the lower extremities. The patient did state that she had followed up with Dr. Delgado, the neurologist, some time in the past and he thought she had migraines and some form of neuropathy, but that was not bad and she was able to normally get around, this was definitely far more severe and changed this admission. The patient is also having trouble swallowing. The patient did undergo EGD by Dr. Garg. The patient was found to have a stricture at the gastrojejunal jejunal joint and this was stretched out. The patient was also found to have a gastrojejunal ulcer. REVIEW OF SYSTEMS: CONSTITUTIONAL: Tired. HEENT: As above. RESPIRATORY: None. CARDIOVASCULAR: None. GASTROINTESTINAL: As above. GENITOURINARY: None. MUSCULOSKELETAL: As above. DERMATOLOGIC: None. HEMATOLOGIC: None. LYMPHATIC: None. PSYCHIATRY: None. NEUROLOGIC: As above. PAST MEDICAL HISTORY: Asthma, overactive bladder, chronic back pain, gastrojejunal ulcer. PAST SURGICAL HISTORY: Cecil-en-Y gastric bypass surgery on 02/08/2018, lap munira, tubes in ears. PSYCH: History of depression. SOCIAL HISTORY: Lives with her mother. Does not smoke or drink alcohol or any use recreational drugs. The patient does dog walking. FAMILY HISTORY: Reviewed, not pertinent to presentation. HOME MEDICATIONS: 1. Ultram 50 mg p.o. t.i.d. p.r.n. 2. Clonidine 0.3 mg at bedtime. 3. Zonisamide 200 mg at bedtime. 4. Carafate 1 g p.o. b.i.d. 5. Myocilin drops 40 mg at bedtime p.r.n. 6. Setlakin 1 tablet p.o. at bedtime. 7. Zoloft 200 mg at bedtime. 8. Imitrex 50 mg b.i.d. p.r.n. 9. Seroquel 50 mg at bedtime. 10.Ditropan 10 mg p.o. daily. 11.Zofran 4 mg every 8 hours p.r.n. 12.Omeprazole 40 mg p.o. daily. 13.Mycostatin 1 application topical b.i.d. 14.Claritin 10 mg p.o. daily. 15.Neurontin 600 mg p.o. t.i.d. 16.Ventolin HFA 90 mcg q.i.d. p.r.n. 17.Abilify 10 mg at bedtime. ALLERGIES: CODEINE AND MORPHINE. PHYSICAL EXAMINATION: Temperature 97.5, pulse 89, respiration 17, blood pressure 147/88, pulse ox 98% on room air. GENERAL: Well built. BMI 44.2. Lying in bed. Tired-appearing. EYES: Pupils equal. Conjunctivae normal. Horizontal nystagmus. NECK: JVD not raised. Mass not palpable. Respiratory effort normal. LUNGS: Clear. CARDIOVASCULAR: 1st and 2nd sounds. No edema. ABDOMEN: Soft, nontender. Liver and spleen not palpable. LYMPHATICS: No lymph nodes palpable in neck or axillae. PSYCHIATRY: Alert and oriented x3. Mood and affect slightly slow. NEUROLOGIC: The patient has got horizontal nystagmus. Mild tremor of the upper extremity. Lower extremity power is 4/5. The patient is able to raise the leg to about 20 degrees. The patient's reflexes are decreased bilaterally. The patient has got minimal pain sensation up to the thighs and soft touch is also greatly absent. INVESTIGATIONS: Accu-Cheks 75, 85, 87. CT scan of the brain unremarkable. The patient did have an EGD. ASSESSMENT: 1. This is a patient who has gotten progressive weakness in lower extremity coming over a period of 1 week following an episode of diarrhea that was self-limiting with loss of sensation, loss of reflexes, loss of pain, more likely low motor neuron. At the same time, patient has some brainstem signs like tremors in both extremities and horizontal nystagmus. The patient was being treated for thiamine deficiency by the primary team with IV thiamine. My concern is that this could be Guillain-Gill syndrome involving the brainstem, slowly going up, though there is no involvement of the thoracic cavity at this time. The hospital does not have any neurology coverage and my concern is about the same. 2. Status post Cecil-en-Y gastric bypass surgery. 3. Gastrojejunostomy ulcer. 4. Gastrojejunostomy stricture with dilatation. 5. Morbid obesity, BMI of 44.2. 6. Intermittent asthma. 7. Depression, not otherwise specified. PLAN: I called Dr. Garg, told her my concerns with no neurologic coverage. I do not wish to sit with this diagnosis. She is agreeable to the same. I did speak to the on- call accepting medical physician, Dr. Rivero, at [facility], who did accept the patient. I did discuss with the patient and she was acceptable for the transfer. In the meantime patient's home medications here will be resumed. The transfer should occur shortly. Thank you Dr. Garg. KACIE / ILDEFONSO: [id number] /
[2018-05-22] MEDS ORDERED: OXYBUTYNIN 10 MG TAB.ER.24 PO SCH (09:00)
--- NOTE | 2018-05-22 13:37 | P.DS ---
Providers Date of admission: 05/19/18 11:50 Expected date of discharge: 05/21/18 Attending physician: Evie Garg Consults: 05/20/18 07:47 Consult Physician Routine Consulting Provider: Renee Rowan Consult Reason/Comments: New onset diplopia Do you want consulting provider notified?: Yes 05/21/18 10:17 Consult Physician Routine Consulting Provider: Kanu Harvey Consult Reason/Comments: medical management Do you want consulting provider notified?: Yes 05/21/18 14:08 Consult Physician Routine Consulting Provider: Mamadou Grove Consult Reason/Comments: Tinnitus and vertigo Do you want consulting provider notified?: Yes Primary care physician: Parminder Christopher Diagnosis(es) (1) Gastric bypass status for obesity Status: Acute (2) Intractable nausea and vomiting Status: Acute (3) Chronic pain syndrome Status: Acute (4) Blurred vision Status: Acute (5) Gastrojejunal anastomotic stricture Status: Acute (6) Hypomagnesemia Status: Acute (7) Thiamine deficiency Status: Acute (8) Weakness Status: Acute (9) Wernicke-Korsakoff syndrome Status: Acute (10) Morbid obesity Status: Acute (11) Vertigo Status: Acute Plan - Discharge Summary New Discharge Prescriptions: No Action Oxybutynin Chloride [Ditropan] 10 mg PO QAM Zonisamide 200 mg PO HS Gabapentin [Neurontin] 600 mg PO TID SUMAtriptan SUCCINATE [Imitrex] 50 mg PO BID PRN PRN Reason: Migraine Headache Sertraline HCl [Zoloft] 200 mg PO HS Loratadine [Claritin] 10 mg PO DAILY QUEtiapine [SEROquel] 50 mg PO HS ARIPiprazole [Abilify] 10 mg PO HS Albuterol Inhaler [Ventolin Hfa Inhaler] 90 mcg INHALATION RT-QID PRN PRN Reason: Dyspnea cloNIDine HCL 0.3 mg PO HS Simethicone 40 mg/0.6 ml Drops [Mylicon Drops] 40 mg PO PCHS PRN #30 ml PRN Reason: Gas Nystatin 100,000 Unit/gm Powd [Mycostatin Powder] 1 applic TOPICAL BID #60 powder traMADol HCl [Ultram] 50 mg PO TID PRN PRN Reason: Pain Setlakin 1 tab PO HS Omeprazole 40 mg PO DAILY #90 capsule. Sucralfate [Carafate] 1 gm PO BID #560 ml Ondansetron Odt [Zofran Odt] 4 mg PO Q8HR PRN #10 tab PRN Reason: Nausea Discharge Medication List Oxybutynin Chloride [Ditropan] 10 mg PO QAM 04/29/14 [History] Zonisamide 200 mg PO HS 04/06/15 [History] Gabapentin [Neurontin] 600 mg PO TID 03/18/16 [History] SUMAtriptan SUCCINATE [Imitrex] 50 mg PO BID PRN 03/18/16 [History] Sertraline HCl [Zoloft] 200 mg PO HS 03/11/17 [History] Loratadine [Claritin] 10 mg PO DAILY 04/29/17 [History] QUEtiapine [SEROquel] 50 mg PO HS 04/29/17 [History] ARIPiprazole [Abilify] 10 mg PO HS 01/27/18 [History] Albuterol Inhaler [Ventolin Hfa Inhaler] 90 mcg INHALATION RT-QID PRN 01/29/18 [ History] cloNIDine HCL 0.3 mg PO HS 02/08/18 [History] Simethicone 40 mg/0.6 ml Drops [Mylicon Drops] 40 mg PO PCHS PRN #30 ml [Rx] Nystatin 100,000 Unit/gm Powd [Mycostatin Powder] 1 applic TOPICAL BID #60 powder 03/10/18 [Rx] Setlakin 1 tab PO HS 03/25/18 [History] traMADol HCl [Ultram] 50 mg PO TID PRN 03/25/18 [History] Omeprazole 40 mg PO DAILY #90 capsule. 03/26/18 [Rx] Sucralfate [Carafate] 1 gm PO BID #560 ml 03/26/18 [Rx] Ondansetron Odt [Zofran Odt] 4 mg PO Q8HR PRN #10 tab 05/11/18 [Rx] Discharge Disposition: OTHER INSTITUTION NOT DEFINED
== END 2018-05-21 18:43 | disposition short-term general hospital (02) | DRG 392 ==
LOC: ORWHC2ENDO 10:03 → 3SCARD 11:50 → ORWHC2ENDO 19:16
PROVIDERS: ADMIT Surgery Plastic and Reconstructive Surgery; ATTEND Surgery Plastic and Reconstructive Surgery
PROC: 0D7A8ZZ Dilation of Jejunum, Via Natural or Artificial Opening Endoscopic (ICD-10-PCS; principal; 2018-05-19 10:15)
PROC: 0D768ZZ Dilation of Stomach, Via Natural or Artificial Opening Endoscopic (ICD-10-PCS; principal; 2018-05-19 10:15)
DX: K22.2 Esophageal obstruction (principal); E51.9 Thiamine deficiency, unspecified; Z68.41 Body mass index [BMI] 40.0-44.9, adult; F04 Amnestic disorder due to known physiological condition; E66.01 Morbid (severe) obesity due to excess calories; E83.42 Hypomagnesemia; E86.0 Dehydration; F32.9 Major depressive disorder, single episode, unspecified; G89.4 Chronic pain syndrome; J45.20 Mild intermittent asthma, uncomplicated; K21.9 Gastro-esophageal reflux disease without esophagitis; K28.9 Gastrojejunal ulcer, unspecified as acute or chronic, without hemorrhage or perforation; K44.9 Diaphragmatic hernia without obstruction or gangrene; K58.9 Irritable bowel syndrome, unspecified; N32.81 Overactive bladder; Z79.899 Other long term (current) drug therapy; Z83.3 Family history of diabetes mellitus; Z87.11 Personal history of peptic ulcer disease; Z98.84 Bariatric surgery status; Z88.5 Allergy status to narcotic agent
CPT/HCPCS: 43249; 70470; 80053; 83735; 84703; 85025

== ENCOUNTER → 2018-09-08 | Outpatient (CLI) | payer OTHER ==
[2018-09-08 15:49] VITALS: BP 122/66; PULSE 51; RESP 16; TEMP 98.8; BMI 42.4
--- NOTE | 2018-09-08 16:55 | P.PN ---
Subjective Progress Note Date: 09/08/18 HPI: She is 6 months out. She has lost 100+ pounds. She comes in with new autoimmune disease and multiple sclerosis. She reports loss of her bowels. She is seeing a neurologist. She needs new labs. History of gastric ulcers. Re-check bariatric labs. Repeat upper EGD for ulcers and stricture Objective - Vital Signs Vital signs: Vital Signs Temp 98.8 F 09/08/18 15:44 Pulse 51 L 09/08/18 15:44 Resp 16 09/08/18 15:44 BP 122/66 09/08/18 15:44 Pulse Ox Intake & Output 09/07/18 09/08/18 09/08/18 18:59 06:59 18:59 Weight 123.831 kg
[2018-09-08 18:17] LABS: HCT 40.3 % (34.0-46.0); MCH 31.5 pg (25.0-35.0); MCHC 32.2 g/dL (31.0-37.0); MCV 97.9 fL (80.0-100.0); Mean Platelet Volume 9.3; Platelet Count 214 k/uL (150-450); RBC 4.12 m/uL (3.80-5.40); RDW 12.2 % (11.5-15.5); WBC 7.8 k/uL (3.8-10.6)
[2018-09-08 18:35] LABS: INR 0.9 (<1.2); Partial Thromboplastin Time 22.2 sec (22.0-30.0)
[2018-09-08 23:27] LABS: Hemoglobin A1C 4.8 % (4.0-6.0)
[2018-09-09 00:33] LABS: Iron Saturation 40.36 (12.00-45.00)
[2018-09-09 00:40] LABS: Vitamin D 25 Hydroxy 23.1 ng/mL (30.0-100.0)
[2018-09-09 00:52] LABS: Folate, Serum 17.2 ng/mL
[2018-09-09 00:56] LABS: Parathyroid Hormone Intact 58.6 pg/mL (14.0-72.0)
[2018-09-09 01:28] LABS: African American GFR (CKD) 139.6 (60.0-200.0); Albumin 4.4 g/dL (3.80-4.90); Albumin/Globulin Ratio 3.14 (1.60-3.17); Anion Gap 11.8 mmol/L (4.00-12.00); BUN/Creat Ratio 27.14 Ratio (12.00-20.00); Calcium 9.6 mg/dL (8.7-10.3); Carbon Dioxide 21.2 mmol/L (21.6-31.8); Globulin 1.4 g/dL (1.6-3.3); LDL Cholesterol,Calculated 75.8 mg/dL (0.0-131.0); Magnesium 1.8 mg/dL (1.5-2.4); Phosphorus 4.8 mg/dL (2.4-5.1); Potassium 4.6 mmol/L (3.5-5.5); Total Bilirubin 0.3 mg/dL (0.3-1.2); Total Protein 5.8 g/dL (6.2-8.2); VLDL Calculation 14.2 mg/dL (5.00-40.00)
[2018-09-09 13:59] LABS: Zinc, Serum 69 ug/dL (60-130)
[2018-09-10 06:24] LABS: Vitamin A 67 ug/dL (38-106)
[2018-09-11 10:36] LABS: Vit B1(Thiamine) 50 ug/L (38-122)
[2018-09-14 17:33] LABS: Selenium 95 mcg/L (63-160)
== END | disposition home or self-care (01) ==
LOC: BARWHC3 15:16
PROVIDERS: ATTEND Surgery Plastic and Reconstructive Surgery
DX: E66.01 Morbid (severe) obesity due to excess calories (principal); E21.1 Secondary hyperparathyroidism, not elsewhere classified; E89.1 Postprocedural hypoinsulinemia; D50.9 Iron deficiency anemia, unspecified; K90.9 Intestinal malabsorption, unspecified; E55.9 Vitamin D deficiency, unspecified; K76.9 Liver disease, unspecified; N19 Unspecified kidney failure; K50.90 Crohn's disease, unspecified, without complications; Z68.41 Body mass index [BMI] 40.0-44.9, adult
CPT/HCPCS: 84255; 84134; 84425; 80061; 80053; 82607; 82728; 82525; 82746; 83540; 83550; 83735; 84100; 84443; 84590; 84630; 85027; 85610; 85730; 82306; 83970; 83036; 97803; G0463; 99211

== ENCOUNTER 2018-11-15 06:41 | Day surgery (SDC) | payer OTHER ==
[2018-11-15 07:12] VITALS: TEMP 97.9
[2018-11-15] MEDS ORDERED: LACTATED RINGERS 1,000 ML IV SCH (07:13)
[2018-11-15 07:30] VITALS: BMI 43.9
[2018-11-15] MEDS ORDERED: LIDOCAINE 1% 20 ML VIAL (10MG/ML) FOR IV START INTRADERMA ONE (07:31)
[2018-11-15] MEDS ORDERED: LACTATED RINGERS 1,000 ML IV ONE (07:31)
[2018-11-15] MEDS ORDERED: PROPOFOL 10 MG/ML 20 ML VIAL IV ONE (08:15)
[2018-11-15] MEDS ORDERED: LIDOCAINE 1% INJ 10MG/ML (20 ML MDV) ONE (08:15)
--- NOTE | 2018-11-15 08:20 | P.GSHP ---
History of Present Illness H&P Date: 11/15/18 CHIEF COMPLAINT: Gastric ulcers HISTORY OF PRESENT ILLNESS: The patient is a 23-year-old female who presents reports gastric ulcers. Upper endoscopy was offered for further evaluation and management. PAST MEDICAL HISTORY: Please see list. PAST SURGICAL HISTORY: Please see list. MEDICATIONS: Please see list. ALLERGIES: Please see list. SOCIAL HISTORY: No illicit drug use FAMILY HISTORY: No reports of Crohn disease or ulcerative colitis. REVIEW OF ORGAN SYSTEMS: CONSTITUTIONAL: No reports of fevers or chills. GI: Denies any blood in stools or constipation. PHYSICAL EXAM: VITAL SIGNS: Stable GENERAL: Well-developed and pleasant in no acute distress. HEENT: No scleral icterus. Extraocular movements grossly intact. Moist buccal mucosa. NECK: Supple without lymphadenopathy. CHEST: Unlabored respirations. Equal bilateral excursions. CARDIOVASCULAR: Regular rate and rhythm. Distal 2+ pulses. ABDOMEN: Soft, nondistended. MUSCULOSKELETAL: No clubbing, cyanosis, or edema. ASSESSMENT: 1. Gastric ulcers PLAN: 1. Recommend proceeding with an upper endoscopy Past Medical History Past Medical History: Asthma Additional Past Medical History / Comment(s): migraines, DDD, IBS, overactive bladder, chronic back pain, gastrojejunal ulcer (dx 03-26-18)., states high bloodpressure when hospitalized., Hx of ER visit in May 2018 with dizziness, nausea & vomiting, blurred vision and lower extremity weakness, pt recieved thiamine infusion, Wernicke-Karsakoff syndrome & ? MS (Drs notes)(FINDS OUT TOMORROW 11/16/18)., pt states left leg weak and uses walker ., Bladder retention. History of Any Multi-Drug Resistant Organisms: MRSA Date of last positivie culture/infection: 11/08/17 MDRO Source:: LT INNER THIGH Past Surgical History: Bariatric Surgery, Cholecystectomy, Ear Surgery Additional Past Surgical History / Comment(s): tubes in ears, EGD, laparoscopic kimberly-en-y 02-08-2018 , EGD with dilation. Past Anesthesia/Blood Transfusion Reactions: No Reported Reaction Past Psychological History: Anxiety, Depression Smoking Status: Never smoker Past Alcohol Use History: Occasional Past Drug Use History: None Reported - Past Family History Mother Family Medical History: Diabetes Mellitus Medications and Allergies Home Medications Medication Instructions Recorded Confirmed Type Zonisamide 200 mg PO HS 04/06/15 11/15/18 History Gabapentin [Neurontin] 600 mg PO TID 03/18/16 11/15/18 History Sertraline HCl [Zoloft] 200 mg PO DAILY 03/11/17 11/15/18 History QUEtiapine [SEROquel] 50 mg PO HS 04/29/17 11/15/18 History ARIPiprazole [Abilify] 10 mg PO DAILY 01/27/18 11/15/18 History Albuterol Inhaler [Ventolin Hfa 90 mcg INHALATION RT-QID PRN 01/29/18 11/15/18 History Inhaler] cloNIDine HCL 0.3 mg PO HS 02/08/18 11/15/18 History traMADol HCl [Ultram] 100 mg PO TID PRN 03/25/18 11/15/18 History Omeprazole 40 mg PO DAILY #90 capsule. 03/26/18 11/15/18 Rx Setlakin Oral Contraceptive 1 tab PO HS 09/08/18 11/15/18 History Acetaminophen [Tylenol Extra 1,000 mg PO DIRECTED PRN 10/05/18 11/15/18 History Strength] Baclofen 10 mg PO TID 10/05/18 11/15/18 History Butalb/APAP/Caff 50-325-40Mg 1 tab PO TID PRN 10/05/18 11/15/18 History [Fioricet 50-325-40] Ergocalciferol (Vitamin D2) 50,000 unit PO MO 10/05/18 11/15/18 History [Vitamin D2] Ibuprofen [Motrin] 800 mg PO Q8HR 10/05/18 11/15/18 History Melatonin 5 mg PO HS PRN 10/05/18 11/15/18 History Multivit with Calcium,Iron,Min 1 each PO DAILY 10/05/18 11/15/18 History [Women's Multivitamin] Tamsulosin HCl [Flomax] 0.4 mg PO HS 10/05/18 11/15/18 History Allergies Allergy/AdvReac Type Severity Reaction Status Date / Time codeine Allergy Dyspnea Verified 11/15/18 07:13 morphine AdvReac Dyspnea Verified 11/15/18 07:13 Surgical - Exam Vital Signs Temp Pulse Resp BP Pulse Ox 97.9 F 71 20 114/57 94 L 11/15/18 07:11 07/08/19 07:11 11/15/18 07:11 11/15/18 07:11 11/15/18 07:11
[2018-11-15 08:51] VITALS: BP 116/66; PULSE 63; RESP 16
--- NOTE | 2018-11-17 17:45 | P.PCN ---
Date of Procedure: 11/15/18 Description of Procedure: PREOPERATIVE DIAGNOSIS: Dysphagia. Epigastric abdominal pain POSTOPERATIVE DIAGNOSIS: Dysphagia. 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 SURGEON: Evie Garg MD ANESTHESIA: MAC. INDICATIONS: The patient is a 23-year-old female who presents with a history of dysphagia, gastric bypass including epigastric abdominal pain. Benefits and risks of the procedure were described. Informed consent was obtained. DESCRIPTION: The patient was brought into the endoscopy suite and laid in the left lateral decubitus position. After a timeout was confirmed, the procedure was initiated. An Olympus gastroscope was passed along the posterior oropharynx down to the distal esophagus where the squamocolumnar junction was unremarkable. The gastric pouch was entered. A gastrojejunal stricture of 15 mm was found. A Intent HQ balloon dilator was placed through the scope. Final insufflation up to 20 mm was performed with a total of 2 minutes. The scope was advanced up to 60 cm from the incisors into the Cecil limb. The mucosa of the gastrojejunal anastomosis was intact. No gastrojejunal ulcer was found. No full-thickness injury was encountered. The GI tract was desufflated. The patient tolerated the procedure well. FINDINGS: Stricture of 15 mm encountered. Balloon dilatation to 20 mm. Resolved gastrojejunal ulcer RECOMMENDATIONS: Upper endoscopy as needed Plan - Discharge Summary New Discharge Prescriptions: No Action Zonisamide 200 mg PO HS Gabapentin [Neurontin] 600 mg PO TID Sertraline HCl [Zoloft] 200 mg PO DAILY QUEtiapine [SEROquel] 50 mg PO HS ARIPiprazole [Abilify] 10 mg PO DAILY Albuterol Inhaler [Ventolin Hfa Inhaler] 90 mcg INHALATION RT-QID PRN PRN Reason: Dyspnea cloNIDine HCL 0.3 mg PO HS traMADol HCl [Ultram] 100 mg PO TID PRN PRN Reason: Pain Omeprazole 40 mg PO DAILY #90 capsule.dr Sorenson Oral Contraceptive 1 tab PO HS Butalb/APAP/Caff 50-325-40Mg [Fioricet 50-325-40] 1 tab PO TID PRN PRN Reason: Migraine Headache Tamsulosin HCl [Flomax] 0.4 mg PO HS Ibuprofen [Motrin] 800 mg PO Q8HR Baclofen 10 mg PO TID Ergocalciferol (Vitamin D2) [Vitamin D2] 50,000 unit PO MO Multivit with Calcium,Iron,Min [Women's Multivitamin] 1 each PO DAILY Melatonin 5 mg PO HS PRN PRN Reason: Insomnia Acetaminophen [Tylenol Extra Strength] 1,000 mg PO DIRECTED PRN PRN Reason: Pain Discharge Medication List Zonisamide 200 mg PO HS 04/06/15 [History] Gabapentin [Neurontin] 600 mg PO TID 03/18/16 [History] Sertraline HCl [Zoloft] 200 mg PO DAILY 03/11/17 [History] QUEtiapine [SEROquel] 50 mg PO HS 04/29/17 [History] ARIPiprazole [Abilify] 10 mg PO DAILY 01/27/18 [History] Albuterol Inhaler [Ventolin Hfa Inhaler] 90 mcg INHALATION RT-QID PRN 01/29/18 [History] cloNIDine HCL 0.3 mg PO HS 02/08/18 [History] traMADol HCl [Ultram] 100 mg PO TID PRN 03/25/18 [History] Omeprazole 40 mg PO DAILY #90 capsule. 03/26/18 [Rx] Setlakin Oral Contraceptive 1 tab PO HS 09/08/18 [History] Acetaminophen [Tylenol Extra Strength] 1,000 mg PO DIRECTED PRN 10/05/18 [History] Baclofen 10 mg PO TID 10/05/18 [History] Butalb/APAP/Caff 50-325-40Mg [Fioricet 50-325-40] 1 tab PO TID PRN 10/05/18 [History] Ergocalciferol (Vitamin D2) [Vitamin D2] 50,000 unit PO MO 10/05/18 [History] Ibuprofen [Motrin] 800 mg PO Q8HR 10/05/18 [History] Melatonin 5 mg PO HS PRN 10/05/18 [History] Multivit with Calcium,Iron,Min [Women's Multivitamin] 1 each PO DAILY 10/05/18 [History] Tamsulosin HCl [Flomax] 0.4 mg PO HS 10/05/18 [History] Follow up Appointment(s)/Referral(s): Evie Garg MD [STAFF PHYSICIAN] - As Needed Patient Instructions/Handouts: *[facility] - (Anesthesia) Endoscopy Discharge Instructions, Esophageal Stricture (DC), Upper Endoscopy (DC) Discharge Disposition: HOME SELF-CARE
== END 2018-11-15 09:04 | disposition home or self-care (01) ==
LOC: ORWHC2ENDO 06:41
PROVIDERS: ATTEND Surgery Plastic and Reconstructive Surgery
DX: K25.9 Gastric ulcer, unspecified as acute or chronic, without hemorrhage or perforation (principal); K21.9 Gastro-esophageal reflux disease without esophagitis; J45.909 Unspecified asthma, uncomplicated; G89.29 Other chronic pain; N32.81 Overactive bladder; K58.9 Irritable bowel syndrome, unspecified; M54.9 Dorsalgia, unspecified; G43.909 Migraine, unspecified, not intractable, without status migrainosus; F41.9 Anxiety disorder, unspecified; F32.9 Major depressive disorder, single episode, unspecified; Z98.84 Bariatric surgery status; Z90.49 Acquired absence of other specified parts of digestive tract; Z86.14 Personal history of Methicillin resistant Staphylococcus aureus infection; Z79.1 Long term (current) use of non-steroidal anti-inflammatories (NSAID); Z79.3 Long term (current) use of hormonal contraceptives; Z79.891 Long term (current) use of opiate analgesic; Z79.899 Other long term (current) drug therapy; Z88.5 Allergy status to narcotic agent; Z83.3 Family history of diabetes mellitus
CPT/HCPCS: 43249; 81025; J2001; J2704; C1726

== ENCOUNTER → 2018-11-24 | Outpatient (CLI) | payer OTHER ==
--- NOTE | 2018-11-24 17:42 | P.PN ---
Subjective Progress Note Date: 11/24/18 DATE: 11/24/2018 CHIEF COMPLAINT: Morbid obesity HISTORY OF PRESENT ILLNESS: Britt Albarran is a 23-year-old female who is status post gastric bypass 02/08/2018. She is 9 months out. She comes in with improvement of troubles with swallowing. She also reports her abdominal pain is improved. Her dysphagia is improved. She comes in with new diagnosis of multiple sclerosis. Her highest weight was 395 pounds. Today she comes in weighing 280 pounds from 272 pounds, 2 months ago. She has gained 8 pounds in 2 months since her last follow up. At her height of 5 foot 7.25 inches, her ideal body weight is 158 pounds. She has lost 115 pounds lifetime. Percent excess weight loss 48 %. Her highest body mass index was 61.5. Today her BMI is 43.7. PHYSICAL EXAM: VITAL SIGNS: Height 5 foot 7.25 inches, weight 280 pounds. BMI 43.7 Vital Signs Temp 98.6 F 11/24/18 18:11 Pulse 55 L 11/24/18 18:11 Resp BP 136/92 11/24/18 18:11 Pulse Ox GENERAL: Well-developed female in no acute distress. HEENT: No scleral icterus. Extraocular movements grossly intact. Hears conversational speech. No nasal drainage. NECK: Supple without lymphadenopathy. CHEST: Nonlabored respirations with equal bilateral excursions. CARDIOVASCULAR: Regular rate. Distal 2+ pulses. ABDOMEN: Obese, soft, nondistended. MUSCULOSKELETAL: No clubbing, cyanosis. No pitting edema. NEURO: No focal or lateralizing signs. Cranial nerves 2 through 12 grossly within normal limits. PSYCH: Appropriate affect. Alert and oriented to person, place and time. SKIN: Good skin turgor. Well perfused. Has panniculitis. ASSESSMENT: 1. Morbid obesity due to excess calories 2. Body mass index 61.5 down to 43.7 3. Irritable bowel syndrome. 4. Obstructive sleep apnea. 5. Osteoarthritis of the hips 6. Hypertensive heart disease. 7. Gastroesophageal reflux disease 8. Anxiety. 9. Depression. 10. Migraines. 11. Overactive bladder. 12. Chronic back pain. 13. Degenerative joint disease. 14. Asthma. 15. Multiple sclerosis 16. Severe thiamine deficiency. 17. Gastric stricture PLAN: 1. Additional prescription of omeprazole written
[2018-11-24 18:18] VITALS: BP 136/92; PULSE 55; TEMP 98.6; BMI 43.7
== END | disposition home or self-care (01) ==
LOC: BARWHC3 15:35
PROVIDERS: ATTEND Surgery Plastic and Reconstructive Surgery
DX: Z48.815 Encounter for surgical aftercare following surgery on the digestive system (principal); E66.01 Morbid (severe) obesity due to excess calories; K58.9 Irritable bowel syndrome, unspecified; G47.33 Obstructive sleep apnea (adult) (pediatric); M16.0 Bilateral primary osteoarthritis of hip; I11.9 Hypertensive heart disease without heart failure; K21.9 Gastro-esophageal reflux disease without esophagitis; F41.9 Anxiety disorder, unspecified; F32.9 Major depressive disorder, single episode, unspecified; G43.909 Migraine, unspecified, not intractable, without status migrainosus; N32.81 Overactive bladder; G89.29 Other chronic pain; M19.90 Unspecified osteoarthritis, unspecified site; J45.909 Unspecified asthma, uncomplicated; G35 Multiple sclerosis; E51.9 Thiamine deficiency, unspecified; K31.89 Other diseases of stomach and duodenum; Z68.41 Body mass index [BMI] 40.0-44.9, adult; Z98.84 Bariatric surgery status
CPT/HCPCS: 99211

== ENCOUNTER → 2019-03-04 | Outpatient (CLI) | payer OTHER | END | disposition home or self-care (01) | LOC: LABWHC1 15:50 | PROVIDERS: ATTEND Psychiatry & Neurology Pain Medicine | DX: G35 Multiple sclerosis (principal); Z51.81 Encounter for therapeutic drug level monitoring | CPT/HCPCS: 36415; 93005 ==

== ENCOUNTER 2019-03-21 21:53 | Emergency (ER) | payer OTHER ==
[2019-03-21] MEDS ORDERED: SODIUM CHLORIDE 0.9% 500 ML 500 ML IV STA (21:58)
[2019-03-21] MEDS ORDERED: MAG HYDROX/AL HYDROX/SIMETH 30 ML, HYOSCYAMINE ELIXIR 10 ML, LIDOCAINE VISCOUS 2% 10 ML PO STA ×3 (22:29)
[2019-03-21 22:53] LABS: Basophils % (A) 1 %; Eosinophils # (A) 0.1 k/uL (0-0.7); Eosinophils % (A) 2 %; HCT 40.5 % (34.0-46.0); HGB 13.9 gm/dL (11.4-16.0); Lymphocytes # (A) 0.9 k/uL (1.0-4.8); Lymphocytes % (A) 16 %; MCH 33.5 pg (25.0-35.0); MCHC 34.3 g/dL (31.0-37.0); MCV 97.6 fL (80.0-100.0); Mean Platelet Volume 7.8; Monocytes # (A) 0.3 k/uL (0-1.0); Monocytes % (A) 5 %; Neutrophils # (A) 4.2 k/uL (1.3-7.7); Neutrophils % (A) 74 %; Platelet Count 197 k/uL (150-450); RBC 4.15 m/uL (3.80-5.40); RDW 12.2 % (11.5-15.5); WBC 5.7 k/uL (3.8-10.6)
[2019-03-21 23:00] LABS: ALT 19 U/L (9-52); AST 17 U/L (14-36); African American GFR (CKD) >90 (>60 ml/min/1.73 sqM); Albumin 3.8 g/dL (3.5-5.0); Alkaline Phosphatase 70 U/L (38-126); Anion Gap 7 mmol/L; Blood Urea Nitrogen 10 mg/dL (7-17); Calcium 8.8 mg/dL (8.4-10.2); Carbon Dioxide 23 mmol/L (22-30); Chloride 110 mmol/L (98-107); Glucose 85 mg/dL (74-99); Potassium 3.8 mmol/L (3.5-5.1); Sodium 140 mmol/L (137-145); Total Bilirubin 0.3 mg/dL (0.2-1.3); Total Protein 6.2 g/dL (6.3-8.2)
[2019-03-21] MEDS ORDERED: traMADol 50 MG TAB PO STA (23:17)
[2019-03-22] MEDS: IOPAMIDOL CONTRAST (ORAL USE) VIAL PO PRN (00:08)
--- NOTE | 2019-03-22 00:09 | CT ---
EXAMINATION TYPE: CT abdomen pelvis w con DATE OF EXAM: 03/21/2019 COMPARISON: None HISTORY: ab pain CT DLP: 2460.3 mGycm Automated exposure control for dose reduction was used. TECHNIQUE: Helical acquisition of images was performed from the lung bases through the pelvis. CONTRAST: Performed with Oral Contrast and with IV Contrast, patient injected with 100 mL of Isovue 300. FINDINGS: Lung bases are clear of consolidation. There is mild subsegmental atelectasis left lung base. Heart size is normal. There is no pericardial effusion. There is some deformity of the stomach consis tent with bariatric surgery. Spleen liver pancreas appear normal. Bile ducts are not dilated. Gallbla dder is absent. There is no adrenal mass. Kidneys show satisfactory contrast opacification. There is no hydronephrosi s. Ureters are not dilated. There is no retroperitoneal adenopathy. There is no ascites or free air. There is no inguinal hernia. Lumbar vertebra have normal alignment. Disc spaces are normal. Bony pelv is is intact. There is no compression fracture. Bladder distends smoothly. Uterus is anteverted. There is no mesenteric edema. There is no ascites or free air. Appendix appears normal. There is no sign of a bowel obstruction. There is left mid abdomi nal intestinal surgery. IMPRESSION: THERE IS BARIATRIC SURGERY AND WITH GASTROJEJUNAL BYPASS. NO SIGN OF ACUTE ABDOMEN AND PELVIS.
[2019-03-22 00:14] VITALS: BP 127/76; PULSE 69; RESP 16; TEMP 98.2
--- NOTE | 2019-03-22 00:33 | ED ---
General Adult HPI - General Chief complaint: Abdominal Pain Stated complaint: Abd Pain Time Seen by Provider: 03/21/19 21:58 Source: patient, RN notes reviewed, old records reviewed Mode of arrival: ambulatory Limitations: no limitations - History of Present Illness Initial comments: 23-year-old female patient with past history significant for gastric bypass performed by Dr. Zuleta one year ago presents to ED from chief complaint of 2 days of epigastric pain. Patient presented as a burning, dull pain. Denies any other complaints. Reports that there is absolutely no chance that she can be . Systemic: Pt denies fatigue, fever/chills, rash. Pt denies weakness, night sweats, weight loss. Neuro: Pt denies headache, visual disturbances, syncope or pre-syncope. HEENT: Pt denies ocular discharge or irritation, otalgia, rhinorrhea, pharyng itis or notable lymphadenopathy. Cardiopulmonary: Pt denies chest pain, SOB, heart palpitations, dyspnea on exertion. Abdominal/GI: Pt denies abdominal pain, n/v/d. : Pt denies dysuria, burning w/ urination, frequency/urgency. Denies new onset urinary or bowel incontinence. MSK: Pt denies myalgia, loss of strength or function in extremities. Neuro: Pt denies new onset weakness, paresthesias. - Related Data Home Medications Medication Instructions Recorded Confirmed Zonisamide 200 mg PO HS 04/06/15 03/21/19 Gabapentin [Neurontin] 600 mg PO TID 03/18/16 03/21/19 Sertraline HCl [Zoloft] 200 mg PO DAILY 03/11/17 03/21/19 QUEtiapine [SEROquel] 50 mg PO HS 04/29/17 03/21/19 ARIPiprazole [Abilify] 10 mg PO DAILY 01/27/18 03/21/19 Albuterol Inhaler [Ventolin Hfa 90 mcg INHALATION RT-QID PRN 01/29/18 03/21/19 Inhaler] traMADol HCl [Ultram] 100 mg PO TID PRN 03/25/18 03/21/19 [place] Oral Contraceptive 1 tab PO HS 09/08/18 03/21/19 Acetaminophen [Tylenol Extra 1,000 mg PO DIRECTED PRN 10/05/18 03/21/19 Strength] Butalb/APAP/Caff 50-325-40Mg 1 tab PO TID PRN 10/05/18 03/21/19 [Fioricet 50-325-40] Ergocalciferol (Vitamin D2) 50,000 unit PO MO 10/05/18 03/21/19 [Vitamin D2] Ibuprofen [Motrin] 800 mg PO Q8HR 10/05/18 03/21/19 Melatonin 5 mg PO HS PRN 10/05/18 03/21/19 Multivit with Calcium,Iron,Min 1 each PO DAILY 10/05/18 03/21/19 [Women's Multivitamin] Tamsulosin HCl [Flomax] 0.4 mg PO HS 10/05/18 03/21/19 Baclofen [Lioresal] 20 mg PO TID 03/21/19 03/21/19 Fingolimod HCl [Gilenya] 0.5 mg PO DAILY 03/21/19 03/21/19 Galcanezumab-Gnlm [Emgality] 120 mg SQ Q30D 03/21/19 03/21/19 Levothyroxine Sodium [Synthroid] 25 mcg PO DAILY 03/21/19 03/21/19 Loratadine [Claritin] 10 mg PO DAILY PRN 03/21/19 03/21/19 Meclizine HCl 25 mg PO TID PRN 03/21/19 03/21/19 Modafinil [Provigil] 200 mg PO QAM 03/21/19 03/21/19 Ondansetron HCl [Zofran] 8 mg PO TID PRN 03/21/19 03/21/19 SUMAtriptan SUCCINATE [Imitrex] 50 mg PO ONCE PRN 03/21/19 03/21/19 cloNIDine HCL [Catapres] 0.1 mg PO HS 03/21/19 03/21/19 Previous Rx's Medication Instructions Recorded Omeprazole 40 mg PO DAILY #90 capsule. 03/26/18 Famotidine [Pepcid] 20 mg PO DAILY 7 Days #7 tablet 03/22/19 Allergies Allergy/AdvReac Type Severity Reaction Status Date / Time codeine Allergy Dyspnea Verified 03/21/19 22:29 peanut Allergy Anaphylaxis Verified 03/21/19 22:29 morphine AdvReac Dyspnea Verified 03/21/19 22:29 Review of Systems ROS Statement: Those systems with pertinent positive or pertinent negative responses have been documented in the HPI. ROS Other: All systems not noted in ROS Statement are negative. 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 Past Anesthesia/Blood Transfusion Reactions: No Reported Reaction Past Psychological History: Anxiety, Depression Smoking Status: Never smoker Past Alcohol Use History: None Reported Past Drug Use History: None Reported - Past Family History Mother Family Medical History: Diabetes Mellitus General Exam - General Exam Comments Initial Comments: Constitutional: NAD, AOX3, Pt has pleasant affect. HEENT: NC/AT, trachea midline, neck supple, no lymphadenopathy. Posterior ph arynx non erythematous, without exudates. External ears appear normal, without discharge. Mucous membranes moist. Eyes PERRLA, EOM intact. There is no scleral icterus. No pallor noted. Cardiopulmonary: RRR, no murmurs, rubs or gallops, no JVD noted. Lungs CTAB in anterior and posterior moncada. No peripheral edema. Abdominal exam: Abdomen soft and non-distended. Abdomen mildly tender to palpation epigastric region, no other areas of abdominal tenderness. Bowel sounds active in LLQ. No hepatosplenomegaly. No ecchymosis Neuro: CN II-XII grossly intact. No nuchal rigidity. No raccon eyes, no mota sign, no hemotympanum. No cervical spinal tenderness. MSK: No posterior calf tenderness bilaterally, homans sign negative bilaterally. Posterior tibialis and radial pulse +2 bilaterally. Sensation intact in upper and lower extremities. Full active ROM in upper and lower extremities, 5/5 stregnth. Limitations: no limitations Course Vital Signs 03/21/19 03/22/19 21:55 00:09 Temperature 98.6 F 98.2 F Pulse Rate 76 69 Respiratory 18 16 Rate Blood Pressure 123/89 127/76 O2 Sat by Pulse 97 98 Oximetry Medical Decision Making - Medical Decision Making 23-year-old female patient proceeded to complain of burning epigastric pain approximately 2 weeks. Patient is status post gastric bypass by Dr. Gonzalez. Denies any other complaints. Denies any other complaints. Vital signs are stable, afebrile. Physical exam displayed mild epigastric tenderness. Laboratory investigations are non-impressive. Patient did not provide urine sample prior to CAT scan. Reported there is absolutely no chance of her being . CT of abdomen and pelvis with oral contrast was negative. Patient didn't provide urine sample after, offered to run at, and declined any dysuria or any chance being , declined running the urine sample. Patient will be prescribed Pepcid and recommended follow-up with primary care provider and Dr. Gonzalez. Likely gastritis. Case discussed with Dr. Crisostomo. - Lab Data Result diagrams: 03/21/19 22:30 03/21/19 22:30 Lab Results 03/21/19 03/21/19 03/21/19 Range/Units 22:30 22:30 22:30 WBC 5.7 (3.8-10.6) k/uL RBC 4.15 (3.80-5.40) m/uL Hgb 13.9 (11.4-16.0) gm/dL Hct 40.5 (34.0-46.0) % MCV 97.6 (80.0-100.0) fL MCH 33.5 (25.0-35.0) pg MCHC 34.3 (31.0-37.0) g/dL RDW 12.2 (11.5-15.5) % Plt Count 197 (150-450) k/uL Neutrophils % 74 % Lymphocytes % 16 % Monocytes % 5 % Eosinophils % 2 % Basophils % 1 % Neutrophils # 4.2 (1.3-7.7) k/uL Lymphocytes # 0.9 L (1.0-4.8) k/uL Monocytes # 0.3 (0-1.0) k/uL Eosinophils # 0.1 (0-0.7) k/uL Basophils # 0.0 (0-0.2) k/uL Sodium 140 (137-145) mmol/L Potassium 3.8 (3.5-5.1) mmol/L Chloride 110 H (98-107) mmol/L Carbon Dioxide 23 (22-30) mmol/L Anion Gap 7 mmol/L BUN 10 (7-17) mg/dL Creatinine 0.57 (0.52-1.04) mg/dL Est GFR (CKD-EPI)AfAm >90 (>60 ml/min/1.73 sqM) Est GFR (CKD-EPI)NonAf >90 (>60 ml/min/1.73 sqM) Glucose 85 (74-99) mg/dL Plasma Lactic Acid Tyler 1.4 (0.7-2.0) mmol/L Calcium 8.8 (8.4-10.2) mg/dL Total Bilirubin 0.3 (0.2-1.3) mg/dL AST 17 (14-36) U/L ALT 19 (9-52) U/L Alkaline Phosphatase 70 (38-126) U/L Total Protein 6.2 L (6.3-8.2) g/dL Albumin 3.8 (3.5-5.0) g/dL Lipase 165 (23-300) U/L Disposition Clinical Impression: Gastritis Disposition: HOME SELF-CARE Condition: Stable Instructions (If sedation given, give patient instructions): Gastritis (ED) Additional Instructions: Follow-up with primary care provider and Dr. Gonzalez tomorrow. Return to ER if condition worsens. Prescriptions: Famotidine [Pepcid] 20 mg PO DAILY 7 Days #7 tablet Is patient prescribed a controlled substance at d/c from ED?: No Referrals: Parminder Torres DO [Primary Care Provider] - 1-2 days Evie Garg MD [STAFF PHYSICIAN] - 1-2 days
== END 2019-03-22 00:50 | disposition home or self-care (01) ==
LOC: EC 21:53
DX: K29.70 Gastritis, unspecified, without bleeding (principal); J45.909 Unspecified asthma, uncomplicated; F41.9 Anxiety disorder, unspecified; F32.9 Major depressive disorder, single episode, unspecified; Z79.890 Hormone replacement therapy; Z79.899 Other long term (current) drug therapy; Z88.5 Allergy status to narcotic agent; Z91.010 Allergy to peanuts; Z98.84 Bariatric surgery status
CPT/HCPCS: 36415; 80053; 83605; 83690; 85025; 74177; 99284; 96360; Q9967

== ENCOUNTER 2019-03-24 12:43 | Inpatient (IN) | payer OTHER ==
[2019-03-24 13:27] VITALS: BMI 45.4
[2019-03-24] MEDS ORDERED: SODIUM CHLORIDE 0.9% 1,000 ML IV SCH (14:00)
[2019-03-24] MEDS: SODIUM CHLORIDE 0.9% 1,000 ML IV SCH (14:03)
[2019-03-24] MEDS ORDERED: BUTALB/APAP/CAFF 50-325-40MG TAB PO PRN (14:30)
[2019-03-24] MEDS ORDERED: LACTATED RINGERS 1,000 ML IV SCH (16:33)
[2019-03-24] MEDS ORDERED: LIDOCAINE 1% 20 ML VIAL (10MG/ML) FOR IV START INTRADERMA PRN (16:33)
[2019-03-24] MEDS ORDERED: PANTOPRAZOLE 40 MG TABLET PO SCH (17:30)
[2019-03-24] MEDS ORDERED: ONDANSETRON 4 MG/2 ML VIAL IVP PRN (18:42)
[2019-03-24] MEDS ORDERED: NALOXONE 0.4 MG/ML 1 ML VIAL IV PRN (18:42)
[2019-03-24] MEDS ORDERED: ALBUTEROL NEBULIZED 2.5 MG/3 ML INHALATION PRN (18:44)
[2019-03-24] MEDS ORDERED: SUMAtriptan SUCCINATE 6 MG/0.5 ML VIAL SQ PRN (18:46)
[2019-03-24] MEDS: ACETAMINOPHEN IV (For NPO) 1,000 MG in EMPTY BAG 1 BAG IVPB SCH (19:59)
[2019-03-24] MEDS: PANTOPRAZOLE 40 MG/10 ML VIAL IVP SCH (20:45)
--- NOTE | 2019-03-24 20:59 | P.GSHP ---
History of Present Illness H&P Date: 03/24/19 CHIEF COMPLAINT: Abdominal pain with gastric obstruction HISTORY OF PRESENT ILLNESS: Britt Albarran is a 23-year-old female who presents with worsening 2-3 day history of epigastric abdominal pain sharp and crampy in nature. She reports inability to tolerate anything by mouth. She reports intractable nausea and vomiting. She went to the ER 2-3 days ago and was sent home and since then her pain is gotten worse. She has history of gastric bypass as well as history of gastrojejunal ulcer with prior obstructions. She does report with her recent diagnosis of multiple sclerosis, she has recently been on multiple medications including steroids, ibuprofen, Gilenya. With a history of gastric bypass, steroids including ibuprofen place her risk for recurrent ulcers. She presents dehydrated. Secondary to her severe dehydration dehydration and esophageal gastric obstruction, she has been admitted. She has history of gastric bypass 02/08/2018. She is 1 year out. Her highest weight was 395 pounds. Today she comes in weighing 289 pounds from 272 pounds, 6 months ago. She has gained 17 pounds in 6 months since her last follow up. At her height of 5 foot 7.25 inches, her ideal body weight is 158 pounds. She has lost 106 pounds lifetime. Percent excess weight loss less than 52%. Her highest body mass index was 61.5. Today her BMI is 45.4. PAST MEDICAL HISTORY: 1. Morbid obesity due to excess calories 2. Body mass index 61.5, highest. 3. Irritable bowel syndrome. 4. Obstructive sleep apnea. 5. Osteoarthritis of the hips 6. Hypertensive heart disease. 7. Gastroesophageal reflux disease 8. Anxiety. 9. Depression. 10. Migraines. 11. Overactive bladder. 12. Chronic back pain. 13. Degenerative joint disease. 14. Asthma. PAST SURGICAL HISTORY: 1. Cholecystectomy 2. Eustachian tubes. 3. Upper endoscopy HOME MEDICATIONS: 1. See list ALLERGIES: 1. See list SOCIAL HISTORY: No active tobacco use. Has limited financial resources. FAMILY HISTORY: No family history of ulcerative colitis disease or Crohn's disease. She does have a family history of morbid obesity. She denies any lupus in her family. No reports of stomach or esophageal cancer. She has a family history of diabetes. REVIEW OF ORGAN SYSTEMS: CONSTITUTIONAL: Her highest weight was 395 pounds. At her height of 5 foot 7.25 inches, her ideal body weight is 158 pounds. Her highest body mass index was 61.5. HEENT: Denies any active troubles with hearing. Has troubles with swallowing. Wears glasses. ENDOCRINE: No diabetes. Has hypothyroidism. CARDIOVASCULAR: No reports of palpitations or heart attacks or chest pain. RESPIRATORY: Resolved daytime somnolence including snoring and sleep apnea. No asthma. GI: Denies any bright red blood per rectum or constipation. MUSCULOSKELETAL: Has lower back pain and joint pain. Has osteoarthritis of the hips and knees. NEURO: Has headaches. No seizure disorders. New neurological disorders of multiple sclerosis. PSYCH: Has depression without suicidal ideation. Has anxiety. RHEUMATOLOGIC: No lupus. No rheumatoid arthritis. Has multiple sclerosis HEMATOLOGIC: Denies any abnormal bleeding or bruising. No personal history of DVTs. SKIN: Has panniculitis. No skin cancer. : Has bladder urgency PHYSICAL EXAM: VITAL SIGNS: Height 5 foot 7.25 inches, weight 289 pounds. BMI 45.4 GENERAL: Well-developed female in no acute distress. HEENT: No scleral icterus. Extraocular movements grossly intact. Hears con versational speech. No nasal drainage. NECK: Supple without lymphadenopathy. CHEST: Nonlabored respirations with equal bilateral excursions. CARDIOVASCULAR: Regular rate. Distal 2+ pulses. ABDOMEN: Obese, soft, nondistended. Tender in epigastrium MUSCULOSKELETAL: No clubbing, cyanosis. No pitting edema. NEURO: No focal or lateralizing signs. Cranial nerves 2 through 12 grossly within normal limits. PSYCH: Appropriate affect. Alert and oriented to person, place and time. SKIN: Fair skin turgor. Well perfused. STUDIES: CT of the abdomen and pelvis independently reviewed from her recent ER visit demonstrating no internal hernia or perforation. LABS: Labs from her recent ER visit review without leukocytosis. ASSESSMENT: 1. Acute esophagogastric obstruction 2. Gastrojejunal ulceration with obstruction 3. Intractable nausea and vomiting 4. Dehydration, moderate 5. Morbid obesity 6. Body mass index 61.5 down to 42.4. 7. Irritable bowel syndrome. 8. Obstructive sleep apnea. 9. Osteoarthritis of the hips 10. Hypertensive heart disease. 11. Gastroesophageal reflux disease 12. Anxiety. 13. Depression. 14. Migraines. 15. Overactive bladder. 16. Chronic back pain. 17. Degenerative joint disease. 18. Asthma. 19. Multiple sclerosis PLAN: 1. Recommend direct inpatient admission for acute esophagogastric obstruction with intractable nausea and vomiting and dehydration. 2. IV fluid hydration with at least 2 L normal saline solution. 3. Nothing by mouth status except ice chips. 4. Will need upper endoscopy with possible dilation 5. Protonix 40 mg twice daily for history of gastric ulcers 6. Patient counseled to avoid medications including ibuprofen, steroids, Gilenya which causes adverse reactions to the stomach including with her prior history of ulcers. 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 Past Anesthesia/Blood Transfusion Reactions: No Reported Reaction Past Psychological History: Anxiety, Depression Additional Psychological History / Comment(s): 11/24/18: Uses walker for ambulation, recent dx with Multiple Sclerosis Smoking Status: Never smoker Past Alcohol Use History: None Reported Past Drug Use History: None Reported - Past Family History Mother Family Medical History: Diabetes Mellitus Medications and Allergies Home Medications Medication Instructions Recorded Confirmed Type Zonisamide 200 mg PO HS 04/06/15 03/24/19 History Gabapentin [Neurontin] 600 mg PO TID 03/18/16 03/24/19 History Sertraline HCl [Zoloft] 200 mg PO DAILY 03/11/17 03/24/19 History QUEtiapine [SEROquel] 50 mg PO HS 04/29/17 03/24/19 History ARIPiprazole [Abilify] 10 mg PO DAILY 01/27/18 03/24/19 History Albuterol Inhaler [Ventolin Hfa 90 mcg INHALATION RT-QID PRN 01/29/18 03/24/19 History Inhaler] traMADol HCl [Ultram] 100 mg PO TID PRN 03/25/18 03/24/19 History Omeprazole 40 mg PO DAILY #90 capsule. 03/26/18 03/24/19 Rx Setlakin Oral Contraceptive 1 tab PO HS 09/08/18 03/24/19 History Acetaminophen [Tylenol Extra 1,000 mg PO TID PRN 10/05/18 03/24/19 History Strength] Butalb/APAP/Caff 50-325-40Mg 1 tab PO TID PRN 10/05/18 03/24/19 History [Fioricet 50-325-40] Ergocalciferol (Vitamin D2) 50,000 unit PO MO 10/05/18 03/24/19 History [Vitamin D2] Ibuprofen [Motrin] 800 mg PO Q8HR 10/05/18 03/24/19 History Melatonin 5 mg PO HS PRN 10/05/18 03/24/19 History Multivit with Calcium,Iron,Min 1 tab PO DAILY 10/05/18 03/24/19 History [Women's Multivitamin] Tamsulosin HCl [Flomax] 0.4 mg PO HS 10/05/18 03/24/19 History Baclofen [Lioresal] 20 mg PO TID 03/21/19 03/24/19 History Galcanezumab-Gnlm [Emgality] 120 mg SQ Q30D 03/21/19 03/24/19 History Levothyroxine Sodium [Synthroid] 25 mcg PO DAILY 03/21/19 03/24/19 History Loratadine [Claritin] 10 mg PO DAILY PRN 03/21/19 03/24/19 History Meclizine HCl 25 mg PO TID PRN 03/21/19 03/24/19 History Modafinil [Provigil] 200 mg PO QAM 03/21/19 03/24/19 History Ondansetron HCl [Zofran] 8 mg PO TID PRN 03/21/19 03/24/19 History SUMAtriptan SUCCINATE [Imitrex] 50 mg PO ONCE PRN 03/21/19 03/24/19 History cloNIDine HCL [Catapres] 0.1 mg PO HS 03/21/19 03/24/19 History Famotidine [Pepcid] 20 mg PO DAILY 7 Days #7 tablet 03/22/19 03/24/19 Rx Allergies Allergy/AdvReac Type Severity Reaction Status Date / Time peanut Allergy Anaphylaxis Verified 03/24/19 15:16 codeine AdvReac Dyspnea Verified 03/24/19 15:16 morphine AdvReac Dyspnea Verified 03/24/19 15:16 Surgical - Exam Vital Signs Temp Pulse Resp BP Pulse Ox 98.7 F 82 16 124/74 99 03/24/19 15:00 03/24/19 15:00 03/24/19 15:00 03/24/19 15:00 03/24/19 15:00 Assessment and Plan (1) Gastric outflow obstruction Current Visit: Yes Status: Acute Code(s): K31.1 - ADULT HYPERTROPHIC PYLORIC STENOSIS SNOMED Code(s): 948833567 (2) Obstruction, esophagus Current Visit: Yes Status: Acute Code(s): K22.2 - ESOPHAGEAL OBSTRUCTION SNOMED Code(s): 404470645 (3) Morbid obesity with BMI of 45.0-49.9, adult Current Visit: Yes Status: Acute Code(s): E66.01 - MORBID (SEVERE) OBESITY DUE TO EXCESS CALORIES; Z68.42 - BODY MASS INDEX (BMI) 45.0-49.9, ADULT SNOMED Code(s): 758913465 (4) Multiple sclerosis Current Visit: Yes Status: Acute Code(s): G35 - MULTIPLE SCLEROSIS SNOMED Code(s): 33169589 (5) Hypothyroidism Current Visit: Yes Status: Acute Code(s): E03.9 - HYPOTHYROIDISM, UNSPECIFIED SNOMED Code(s): 68268382 (6) Anxiety Current Visit: Yes Status: Acute Code(s): F41.9 - ANXIETY DISORDER, UNSPECIFIED SNOMED Code(s): 73776884 (7) Chronic pain Current Visit: Yes Status: Acute Code(s): G89.29 - OTHER CHRONIC PAIN SNOMED Code(s): 91399213 (8) Gastric bypass status for obesity Current Visit: No Status: Acute Code(s): Z98.84 - BARIATRIC SURGERY STATUS SNOMED Code(s): 720566037 (9) Intractable nausea and vomiting Current Visit: No Status: Acute Code(s): R11.2 - NAUSEA WITH VOMITING, UNSPECIFIED SNOMED Code(s): 749327689
[2019-03-24] MEDS: 0.9% NACL WITH KCL 20 MEQ/L 1,000 ML IV SCH (21:22)
[2019-03-25] MEDS: ACETAMINOPHEN IV (For NPO) 1,000 MG in EMPTY BAG 1 BAG IVPB SCH ×3 (01:11→12:05)
[2019-03-25] MEDS: 0.9% NACL WITH KCL 20 MEQ/L 1,000 ML IV SCH (01:53)
[2019-03-25] MEDS ORDERED: 0.9% NACL WITH KCL 20 MEQ/L 1,000 ML IV SCH (08:00)
[2019-03-25 08:44] VITALS: RESP 16; TEMP 97.9
[2019-03-25] MEDS: PANTOPRAZOLE 40 MG/10 ML VIAL IVP SCH (09:37)
[2019-03-25] MEDS ORDERED: SUMAtriptan SUCCINATE 6 MG/0.5 ML VIAL SQ STA (13:15)
[2019-03-25] MEDS ORDERED: PROPOFOL 10 MG/ML 20 ML VIAL IV ONE (14:19)
[2019-03-25] MEDS ORDERED: LIDOCAINE 1% INJ 10MG/ML (20 ML MDV) ONE (14:19)
[2019-03-25] MEDS ORDERED: LACTATED RINGERS 1,000 ML IV ONE (14:30)
[2019-03-25] MEDS ORDERED: traMADol 50 MG TAB PO PRN (15:03)
[2019-03-25] MEDS ORDERED: MECLIZINE 25 MG TAB PO PRN (15:03)
[2019-03-25] MEDS ORDERED: MELATONIN 5 MG TABLET PO PRN (15:03)
[2019-03-25] MEDS ORDERED: ACETAMINOPHEN TAB 500 MG TAB PO PRN (15:03)
[2019-03-25] MEDS ORDERED: BUTALB/APAP/CAFF 50-325-40MG TAB PO PRN (15:03)
[2019-03-25] MEDS ORDERED: LORATADINE 10 MG TAB PO PRN (15:03)
--- NOTE | 2019-03-25 15:12 | P.PCN ---
Date of Procedure: 03/25/19 Description of Procedure: PREOPERATIVE DIAGNOSIS: Esophagus gastric obstruction Intractable nausea and vomiting History of gastrojejunal obstruction Gastroesophageal reflux disease. Morbid obesity. POSTOPERATIVE DIAGNOSIS: Esophagus gastric obstruction Intractable nausea and vomiting Gastrojejunal obstruction Gastroesophageal reflux disease. Morbid obesity Gastritis. Diaphragmatic hiatal hernia OPERATION: Esophagogastrojejunoscopy with balloon dilatation from 12 to 20 mm. Esophagogastrojejunoscopy with biopsies along antrum gastric pouch SURGEON: Evie Garg MD ANESTHESIA: MAC. INDICATIONS: The patient is a 23-year-old female who presents with a history of esophagogastric obstruction with intractable nausea and vomiting, epigastric abdominal pain. Benefits and risks of the procedure were described. Informed consent was obtained. DESCRIPTION: The patient was brought into the endoscopy suite and laid in the left lateral decubitus position. After a timeout was confirmed, the procedure was initiated. An Olympus gastroscope was passed along the posterior oropharynx down to the distal esophagus where the squamocolumnar junction was unremarkable. The gastric pouch was entered. A gastrojejunal stricture of 15 mm was found as the adult gastroscope was 9.5 mm in size. A Musicraiser balloon dilator was placed through the scope. Final insufflation up to 20 mm was performed with a total of 2 minutes. The scope was advanced up to 60 cm from the incisors into the Cecil limb. The mucosa of the gastrojejunal anastomosis was intact. No chronic gastrojejunal marginal ulcer was encountered. No full-thickness injury was encountered. A cold forceps biopsy of the gastric pouch was identified with features of gastritis. Similarly, a sliding hiatal hernia was also identified. The GI tract was desufflated. The patient tolerated the procedure well. FINDINGS: Squamocolumnar junction unremarkable Stricture of approximately 15 mm encountered. No chronic gastrojejunal ulceration encountered. Successful balloon dilatation to 20 mm. Gastritis identified of gastric pouch Sliding diaphragmatic hiatal hernia RECOMMENDATIONS: 1. Upper endoscopy as needed 2. Recommend avoid ibuprofen, steroids, and Gilenya for recurrent gastritis.
[2019-03-25] MEDS ORDERED: GABAPENTIN 300 MG CAP PO SCH (16:00)
[2019-03-25] MEDS ORDERED: BACLOFEN 10 MG TAB PO SCH (16:00)
[2019-03-25 16:26] VITALS: BP 119/78; PULSE 70
--- NOTE | 2019-03-25 16:52 | P.DS ---
Providers Date of admission: 03/24/19 12:54 Expected date of discharge: 03/25/19 Attending physician: Evie Garg Primary care physician: Parminder Torres - Discharge Diagnosis(es) (1) Gastric outflow obstruction Current Visit: Yes Status: Acute (2) Obstruction, esophagus Current Visit: Yes Status: Acute (3) Morbid obesity with BMI of 45.0-49.9, adult Current Visit: Yes Status: Acute (4) Multiple sclerosis Current Visit: Yes Status: Acute (5) Hypothyroidism Current Visit: Yes Status: Acute (6) Anxiety Current Visit: Yes Status: Acute (7) Chronic pain Current Visit: Yes Status: Acute (8) Gastric bypass status for obesity Current Visit: No Status: Acute (9) Intractable nausea and vomiting Current Visit: No Status: Acute (10) Gastrojejunal anastomotic stricture Current Visit: No Status: Acute (11) Gastritis Current Visit: No Status: Acute Hospital Course: DIAGNOSES: 1. Acute esophagogastric obstruction 2. Gastrojejunal ulceration with obstruction 3. Intractable nausea and vomiting 4. Dehydration, moderate 5. Morbid obesity 6. Body mass index 61.5 down to 42.4. 7. Irritable bowel syndrome. 8. Obstructive sleep apnea. 9. Osteoarthritis of the hips 10. Hypertensive heart disease. 11. Gastroesophageal reflux disease 12. Anxiety. 13. Depression. 14. Migraines. 15. Overactive bladder. 16. Chronic back pain. 17. Degenerative joint disease. 18. Asthma. 19. Multiple sclerosis COURSE: Britt Albarran is a 23-year-old female who presented with worsening 2- 3 day history of epigastric abdominal pain sharp and crampy in nature. She reports inability to tolerate anything by mouth. She reports intractable nausea and vomiting. She went to the ER 2-3 days ago and was sent home and since then her pain is gotten worse. She has history of gastric bypass as well as history of gastrojejunal ulcer with prior obstructions. She does report with her recent diagnosis of multiple sclerosis, she has recently been on multiple medications including steroids, ibuprofen, Gilenya. With a history of gastric bypass, steroids including ibuprofen place her risk for recurrent ulcers. She presents dehydrated. Secondary to her severe dehydration dehydration and esophageal gastric obstruction, she was admitted She was placed nothing by mouth status. She was given IV fluid hydration at least 2 L to correct dehydration. She was placed on Protonix twice daily including withholding of her medications. She underwent an upper endoscopy earlier today with findings of gastrojejunal obstruction requiring dilation. Additional features of gastritis were found with biopsies obtained. She was started on diet which was able to tolerate. Prior to discharge, she was tolerating liquid diet. New ALLERGIES were placed on her record including ibuprofen, aspartame, Gilenya which she should afford with a history of gastric bypass to worsen gastritis including recurrent ulcers and obstruction. Information regarding Hospital care was also reviewed with her mother. Patient Condition at Discharge: Stable Plan - Discharge Summary New Discharge Prescriptions: Continue RX: Zonisamide 200 mg PO HS RX: Gabapentin [Neurontin] 600 mg PO TID RX: Sertraline HCl [Zoloft] 200 mg PO DAILY RX: QUEtiapine [SEROquel] 50 mg PO HS RX: ARIPiprazole [Abilify] 10 mg PO DAILY RX: Albuterol Inhaler [Ventolin Hfa Inhaler] 90 mcg INHALATION RT-QID PRN PRN Reason: Dyspnea RX: traMADol HCl [Ultram] 100 mg PO TID PRN PRN Reason: Pain RX: Omeprazole 40 mg PO DAILY #90 capsule.dr Sorenson Oral Contraceptive 1 tab PO HS RX: Butalb/APAP/Caff 50-325-40Mg [Fioricet 50-325-40] 1 tab PO TID PRN PRN Reason: Migraine Headache RX: Tamsulosin HCl [Flomax] 0.4 mg PO HS RX: Ergocalciferol (Vitamin D2) [Vitamin D2] 50,000 unit PO MO RX: Multivit with Calcium,Iron,Min [Women's Multivitamin] 1 tab PO DAILY RX: Melatonin 5 mg PO HS PRN PRN Reason: Insomnia RX: Acetaminophen [Tylenol Extra Strength] 1,000 mg PO TID PRN PRN Reason: Pain RX: SUMAtriptan SUCCINATE [Imitrex] 50 mg PO ONCE PRN PRN Reason: Migraine Headache RX: Modafinil [Provigil] 200 mg PO QAM RX: Ondansetron HCl [Zofran] 8 mg PO TID PRN PRN Reason: Nausea RX: Meclizine HCl 25 mg PO TID PRN PRN Reason: dizziness RX: Loratadine [Claritin] 10 mg PO DAILY PRN PRN Reason: Allergy Symptoms RX: Levothyroxine Sodium [Synthroid] 25 mcg PO DAILY RX: Baclofen [Lioresal] 20 mg PO TID RX: cloNIDine HCL [Catapres] 0.1 mg PO HS RX: Galcanezumab-Gnlm [Emgality Pen] 120 mg SQ Q30D Discontinued Ibuprofen [Motrin] 800 mg PO Q8HR Famotidine [Pepcid] 20 mg PO DAILY 7 Days #7 tablet Discharge Medication List RX: Zonisamide 200 mg PO HS 04/06/15 [History] RX: Gabapentin [Neurontin] 600 mg PO TID 03/18/16 [History] RX: Sertraline HCl [Zoloft] 200 mg PO DAILY 03/11/17 [History] RX: QUEtiapine [SEROquel] 50 mg PO HS 04/29/17 [History] RX: ARIPiprazole [Abilify] 10 mg PO DAILY 01/27/18 [History] RX: Albuterol Inhaler [Ventolin Hfa Inhaler] 90 mcg INHALATION RT-QID PRN 01/29/18 [History] RX: traMADol HCl [Ultram] 100 mg PO TID PRN 03/25/18 [History] RX: Omeprazole 40 mg PO DAILY #90 capsule. 03/26/18 [Rx] Setlakin Oral Contraceptive 1 tab PO HS 09/08/18 [History] RX: Acetaminophen [Tylenol Extra Strength] 1,000 mg PO TID PRN 10/05/18 [History] RX: Butalb/APAP/Caff 50-325-40Mg [Fioricet 50-325-40] 1 tab PO TID PRN 10/05/18 [History] RX: Ergocalciferol (Vitamin D2) [Vitamin D2] 50,000 unit PO MO 10/05/18 [History] RX: Melatonin 5 mg PO HS PRN 10/05/18 [History] RX: Multivit with Calcium,Iron,Min [Women's Multivitamin] 1 tab PO DAILY 10/05/18 [History] RX: Tamsulosin HCl [Flomax] 0.4 mg PO HS 10/05/18 [History] RX: Baclofen [Lioresal] 20 mg PO TID 03/21/19 [History] RX: Galcanezumab-Gnlm [Emgality Pen] 120 mg SQ Q30D 03/21/19 [History] RX: Levothyroxine Sodium [Synthroid] 25 mcg PO DAILY 03/21/19 [History] RX: Loratadine [Claritin] 10 mg PO DAILY PRN 03/21/19 [History] RX: Meclizine HCl 25 mg PO TID PRN 03/21/19 [History] RX: Modafinil [Provigil] 200 mg PO QAM 03/21/19 [History] RX: Ondansetron HCl [Zofran] 8 mg PO TID PRN 03/21/19 [History] RX: SUMAtriptan SUCCINATE [Imitrex] 50 mg PO ONCE PRN 03/21/19 [History] RX: cloNIDine HCL [Catapres] 0.1 mg PO HS 03/21/19 [History] [facility] [place] [place] [facility] [place] [facility] Patient Instructions/Handouts: Hiatal Hernia (DC), Bowel Obstruction (ED), Esophageal Dilation (DC) Discharge Disposition: HOME SELF-CARE
[2019-03-25] MEDS ORDERED: QUEtiapine 50 MG TAB PO SCH (21:00)
[2019-03-25] MEDS ORDERED: cloNIDine HCL 0.1 MG TAB PO SCH (21:00)
[2019-03-25] MEDS ORDERED: ZONISAMIDE 100 MG CAP PO SCH (21:00)
[2019-03-25] MEDS ORDERED: TAMSULOSIN 0.4 MG CAP.ER.24H PO SCH (21:00)
[2019-03-26] MEDS ORDERED: LEVOTHYROXINE 25 MCG TAB PO SCH (06:30)
[2019-03-26] MEDS ORDERED: SERTRALINE 100 MG TAB PO SCH (09:00)
[2019-03-26] MEDS ORDERED: MODAFINIL 200 MG TAB PO SCH (09:00)
[2019-03-26] MEDS ORDERED: ARIPiprazole 10 MG TAB PO SCH (09:00)
== END 2019-03-25 17:46 | disposition home or self-care (01) | DRG 381 ==
LOC: 4SSUR 12:54
PROVIDERS: ADMIT Surgery Plastic and Reconstructive Surgery; ATTEND Surgery Plastic and Reconstructive Surgery
PROC: 0DB78ZX Excision of Stomach, Pylorus, Via Natural or Artificial Opening Endoscopic, Diagnostic (ICD-10-PCS; 2019-03-25)
PROC: 0D768ZZ Dilation of Stomach, Via Natural or Artificial Opening Endoscopic (ICD-10-PCS; principal; 2019-03-25 14:00)
PROC: 0D7A8ZZ Dilation of Jejunum, Via Natural or Artificial Opening Endoscopic (ICD-10-PCS; 2019-03-25 14:00)
DX: K31.1 Adult hypertrophic pyloric stenosis (principal); Z68.42 Body mass index [BMI] 45.0-49.9, adult; E66.01 Morbid (severe) obesity due to excess calories; G35 Multiple sclerosis; I11.9 Hypertensive heart disease without heart failure; E03.9 Hypothyroidism, unspecified; E86.0 Dehydration; F32.9 Major depressive disorder, single episode, unspecified; F41.9 Anxiety disorder, unspecified; G43.909 Migraine, unspecified, not intractable, without status migrainosus; G47.33 Obstructive sleep apnea (adult) (pediatric); G89.29 Other chronic pain; J45.909 Unspecified asthma, uncomplicated; K21.9 Gastro-esophageal reflux disease without esophagitis; K28.9 Gastrojejunal ulcer, unspecified as acute or chronic, without hemorrhage or perforation; K29.70 Gastritis, unspecified, without bleeding; K44.9 Diaphragmatic hernia without obstruction or gangrene; K58.9 Irritable bowel syndrome, unspecified; M16.0 Bilateral primary osteoarthritis of hip; N32.81 Overactive bladder; M54.9 Dorsalgia, unspecified; Z79.890 Hormone replacement therapy; Z79.899 Other long term (current) drug therapy; Z87.11 Personal history of peptic ulcer disease; Z98.84 Bariatric surgery status; Z90.49 Acquired absence of other specified parts of digestive tract; Z86.14 Personal history of Methicillin resistant Staphylococcus aureus infection; Z88.5 Allergy status to narcotic agent; Z91.010 Allergy to peanuts
CPT/HCPCS: 43239; 43245; 81025; 88305; 94640

== ENCOUNTER → 2019-03-24 | Outpatient (CLI) | payer OTHER ==
[2019-03-24 12:09] VITALS: BP 124/87; PULSE 92; TEMP 98.4; BMI 45.2
--- NOTE | 2019-03-24 12:19 | P.PN ---
Subjective Progress Note Date: 03/24/19 She comes in with pain of the abdomen. She is seeing Dr. Ledbetter. She is allergic to multiple foods. She had severe abdominal pain with talking [place]. IV dehydration. She is now diagnosed with MS. Carafate for ulcers. She described epigastric pain. CT reviewed. Bassam is contra-indicated with her surgery and is intolerant. EGD for scope. Carafate for pain. CT reviewed. She was steroids less than 3 weeks. Objective - Vital Signs Vital signs: Vital Signs Temp 98.4 F 03/24/19 12:03 Pulse 92 03/24/19 12:03 Resp BP 124/87 03/24/19 12:03 Pulse Ox Intake & Output 03/23/19 03/24/19 03/24/19 18:59 06:59 18:59 Weight 131.995 kg
== END ==
LOC: BARWHC3 09:51
PROVIDERS: ATTEND Surgery Plastic and Reconstructive Surgery
DX: R10.13 Epigastric pain (principal); E66.01 Morbid (severe) obesity due to excess calories; G35 Multiple sclerosis; Z91.018 Allergy to other foods; K25.9 Gastric ulcer, unspecified as acute or chronic, without hemorrhage or perforation; Z79.899 Other long term (current) drug therapy; Z68.42 Body mass index [BMI] 45.0-49.9, adult
CPT/HCPCS: 97803; G0463; 99211

== ENCOUNTER → 2019-04-06 | Outpatient (CLI) | payer OTHER ==
[2019-04-06 16:30] VITALS: BP 119/74; PULSE 85; TEMP 99; BMI 46.5
--- NOTE | 2019-04-06 16:42 | P.PN ---
Subjective Progress Note Date: 04/06/19 CHIEF COMPLAINT: Abdominal pain HISTORY OF PRESENT ILLNESS: Britt Albarran is a 23-year-old female status post gastric bypass 02/08/2018. She is 1 year out. She was hospitalized 2 weeks ago for epigastric abdominal pain from steroids including Gilenya. She had an upper endoscopy. She reports recurrent epigastric pain. Her highest weight was 395 pounds. Today she comes in weighing 298 pounds from 289 pounds, 2 weeks ago. She has gained 8 pounds in 2 weeks. At her height of 5 foot 7.25 inches, her ideal body weight is 158 pounds. She has lost 97 pounds lifetime. Percent excess weight loss 41%. Her highest body mass index was 61.5. Today her BMI is 46.5. PHYSICAL EXAM: VITAL SIGNS: Height 5 foot 7.25 inches, weight 298 pounds. BMI 46.5 Vital Signs Temp 99 F 04/06/19 16:20 Pulse 85 04/06/19 16:20 Resp BP 119/74 04/06/19 16:20 Pulse Ox GENERAL: Well-developed female in no acute distress. HEENT: No scleral icterus. Extraocular movements grossly intact. Hears conversational speech. No nasal drainage. NECK: Supple without lymphadenopathy. CHEST: Nonlabored respirations with equal bilateral excursions. CARDIOVASCULAR: Regular rate. Distal 2+ pulses. ABDOMEN: Obese, soft, nondistended. Tender in epigastrium MUSCULOSKELETAL: No clubbing, cyanosis. No pitting edema. NEURO: No focal or lateralizing signs. Cranial nerves 2 through 12 grossly within normal limits. PSYCH: Appropriate affect. Alert and oriented to person, place and time. SKIN: Fair skin turgor. Well perfused. EGD FINDINGS: Squamocolumnar junction unremarkable Stricture of approximately 15 mm encountered. No chronic gastrojejunal ulceration encountered. Successful balloon dilatation to 20 mm. Gastritis identified of gastric pouch Sliding diaphragmatic hiatal hernia Final Pathologic Diagnosis GASTRIC POUCH, BIOPSY: Mild chronic gastritis. Helicobacter pylori organisms are not identified on routine H+E sections. ASSESSMENT: 1. Morbid obesity due to excess calories 2. Body mass index 61.5 down to 46.5 3. Irritable bowel syndrome. 4. Obstructive sleep apnea. 5. Osteoarthritis of the hips 6. Hypertensive heart disease. 7. Gastroesophageal reflux disease 8. Anxiety. 9. Depression. 10. Migraines. 11. Overactive bladder. 12. Chronic back pain. 13. Degenerative joint disease. 14. Asthma. 15. Multiple sclerosis 16. Epigastric abdominal pain. 17. Hiatal hernia PLAN: 1. Recommend full bariatric labs 2. Recommend esophogram for recurrent abdominal pain Objective - Vital Signs Vital signs: Vital Signs Temp 99 F 04/06/19 16:20 Pulse 85 04/06/19 16:20 Resp BP 119/74 04/06/19 16:20 Pulse Ox Intake & Output 04/05/19 04/06/19 04/06/19 18:59 06:59 18:59 Weight 135.624 kg
== END ==
LOC: BARWHC3 16:07
PROVIDERS: ATTEND Surgery Plastic and Reconstructive Surgery
DX: R10.13 Epigastric pain (principal); K44.9 Diaphragmatic hernia without obstruction or gangrene
CPT/HCPCS: 99211

== ENCOUNTER → 2019-05-31 | Outpatient (CLI) | payer OTHER ==
[2019-05-31 16:28] LABS: HCT 42.9 % (34.0-46.0); MCH 32.3 pg (25.0-35.0); MCHC 32.7 g/dL (31.0-37.0); MCV 98.7 fL (80.0-100.0); Platelet Count 226 k/uL (150-450); RBC 4.35 m/uL (3.80-5.40); RDW 11.7 % (11.5-15.5); WBC 6.8 k/uL (3.8-10.6)
[2019-06-01 00:47] LABS: Hemoglobin A1C 4.7 % (4.0-6.0)
[2019-06-01 02:21] LABS: African American GFR (CKD) 102.3 (60.0-200.0); Albumin 4.7 g/dL (3.80-4.90); Albumin/Globulin Ratio 3.36 (1.60-3.17); Anion Gap 9.3 mmol/L (4.00-12.00); BUN/Creat Ratio 23.33 Ratio (12.00-20.00); Carbon Dioxide 22.7 mmol/L (21.6-31.8); Globulin 1.4 g/dL (1.6-3.3); Non-African American GFR(CKD) 88.2 (60.0-200.0); Potassium 4.5 mmol/L (3.5-5.5); Total Bilirubin 0.2 mg/dL (0.3-1.2); Total Protein 6.1 g/dL (6.2-8.2)
[2019-06-01 02:37] LABS: Folate, Serum 9.2 ng/mL
[2019-06-01 03:15] LABS: Hepatitis B Core IgM Non-Reactive (Non-Reactive); Hepatitis B Surface AB- Quant 3.5 mIU/mL; Hepatitis B Surface Antibody Non-Reactive (Non-Reactive); Hepatitis B Surface Antigen Non-Reactive (Non-Reactive)
[2019-06-01 08:02] LABS: HIV 1 AB Non-Reactive (Non-Reactive); HIV 2 AB Non-Reactive (Non-Reactive); HIV AB P24 Non-Reactive (Non-Reactive); HIV P24 AG Non-Reactive (Non-Reactive)
[2019-06-03 09:40] LABS: Vit B1(Thiamine) 66 ug/L (38-122)
[2019-06-09 07:04] LABS: Nicotinamide None Detected; Nicotinic Acid None Detected; Nicotinuric Acid None Detected
== END | disposition home or self-care (01) ==
LOC: LABWHC1 16:07
PROVIDERS: ATTEND Psychiatry & Neurology Pain Medicine
DX: G35 Multiple sclerosis (principal)
CPT/HCPCS: 36415; 80053; 82306; 82607; 82746; 83036; 84207; 84425; 84439; 84443; 84481; 84591; 85027; 86704; 86705; 86706; 86787; 87340; 87390

== ENCOUNTER → 2019-07-13 | Outpatient (CLI) | payer OTHER ==
--- NOTE | 2019-07-13 09:03 | CT ---
EXAMINATION TYPE: CT sinus wo con DATE OF EXAM: 07/13/2019 COMPARISON: Prior sinus CT April 10, 2016. Prior MRI brain June 14, 2016. Prior CT brain May 20, 2018. HISTORY: Chronic ethmoidal Sinusitis per order. Sinus and nasal pressure with vertigo worse when tilt ing head with headaches and vision changes along with dizziness and bilateral numbness to face all pe r patient. CT DLP: 545.1 mGycm. Automated Exposure Control for Dose Reduction was Utilized. TECHNIQUE: CT scan of the sinuses is performed without contrast, axial images are obtained, coronal r eformatted images are also reviewed. FINDINGS: New mild mucosal thickening in the inferior aspect right maxillary sinus is identified. Lef t maxillary sinus is clear. Ethmoid sinuses show no significant mucosal thickening or suspicious opac ification on current study. There is hypoplastic or non-formed left frontal sinus on current study. T here is tiny caliber right sphenoid sinus redemonstrated. Nasal septum remains slightly deviated to r ight of midline The ostiomeatal complex is narrowed on the left and occluded on the right due to antr al mucosal thickening and left antral tiny osteoma coronal image 15. Visualized portion of mastoid air cells show no abnormal opacification. The globes are intact bilate rally. Visualized portion of brain parenchyma is unremarkable. IMPRESSION: Some chronic paranasal sinus disease as detailed above. Ethmoid sinuses are within normal limits. No acute sinusitis currently.
== END | disposition home or self-care (01) ==
LOC: RADCTMAIN 08:12
PROVIDERS: ATTEND Otolaryngology Otolaryngology/Facial Plastic Surgery
DX: J34.89 Other specified disorders of nose and nasal sinuses (principal)
CPT/HCPCS: 70486

== ENCOUNTER → 2019-10-05 | Outpatient (CLI) | payer OTHER ==
[2019-10-05 16:03] VITALS: BP 110/74; PULSE 98; RESP 20; TEMP 98.4; BMI 49.3
--- NOTE | 2019-10-05 16:18 | P.PN ---
Subjective Progress Note Date: 10/05/19 DATE OF SERVICE: 10/05/2019 CHIEF COMPLAINT: Gastric bypass HISTORY OF PRESENT ILLNESS: Britt Albarran is a 24-year-old female status post gastric bypass 02/08/2018. She is over 1.5 years out. She comes in with new weigh regain. Over 8 months ago she had epigastric abdominal pain worsened with oral multiple sclerosis medication Gilenya. She is now on infusions as a result. She has gained 50 pounds in 1 year. She has multiple sclerosis and is on infusion Ocrevus. She reports improvement of demyelinated sheath of the brain. She denies belly pain. She reports trouble with swallowing. She reports thyroid problems. She comes in with new problems of trouble drinking water because of taste and reports generalized troubles with her taste buds. She has been drinking tea and sodas instead. Her highest weight was 395 pounds. Today she comes in weighing 317 pounds from 298 pounds, 8 months ago. She has gained 18 pounds in 8 months. At her height of 5 foot 7.25 inches, her ideal body weight is 158 pounds. She has lost 86 pounds lifetime. Percent excess weight loss 33 %. Her highest body mass index was 61.5. Today her BMI is 49.3 PAST MEDICAL HISTORY: 1. Morbid obesity due to excess calories 2. Body mass index 61.5, highest. 3. Irritable bowel syndrome. 4. Obstructive sleep apnea. 5. Osteoarthritis of the hips 6. Hypertensive heart disease. 7. Gastroesophageal reflux disease 8. Anxiety. 9. Depression. 10. Migraines. 11. Overactive bladder. 12. Chronic back pain. 13. Degenerative joint disease. 14. Asthma. PAST SURGICAL HISTORY: 1. Cholecystectomy 2. Eustachian tubes. 3. Upper endoscopy HOME MEDICATIONS: Home Medications Medication Instructions Recorded Confirmed Zonisamide 200 mg PO HS 04/06/15 10/05/19 Gabapentin [Neurontin] 600 mg PO TID 03/18/16 10/05/19 QUEtiapine [SEROquel] 50 mg PO HS 04/29/17 10/05/19 ARIPiprazole [Abilify] 10 mg PO DAILY 01/27/18 10/05/19 Albuterol Inhaler (Mhu) [Ventolin 90 mcg INHALATION RT-QID PRN 01/29/18 10/05/19 Hfa Inhaler (Mhu)] traMADol HCl [Ultram] 100 mg PO TID PRN 03/25/18 10/05/19 [place] Oral Contraceptive 1 tab PO HS 09/08/18 10/05/19 Acetaminophen [Tylenol Extra 1,000 mg PO TID PRN 10/05/18 10/05/19 Strength] Butalb/APAP/Caff 50-325-40Mg 1 tab PO TID PRN 10/05/18 10/05/19 [Fioricet 50-325-40] Ergocalciferol (Vitamin D2) 50,000 unit PO MO 10/05/18 10/05/19 [Vitamin D2] Melatonin 5 mg PO HS PRN 10/05/18 10/05/19 Multivit with Calcium,Iron,Min 1 tab PO DAILY 10/05/18 10/05/19 [Women's Multivitamin] Tamsulosin HCl [Flomax] 0.4 mg PO HS 10/05/18 10/05/19 Baclofen [Lioresal] 20 mg PO TID 03/21/19 10/05/19 Galcanezumab-Gnlm [Emgality Pen] 120 mg SQ Q30D 03/21/19 10/05/19 Levothyroxine Sodium [Synthroid] 50 mcg PO DAILY 03/21/19 10/05/19 Loratadine [Claritin] 10 mg PO DAILY PRN 03/21/19 10/05/19 Meclizine HCl 25 mg PO TID PRN 03/21/19 10/05/19 Modafinil [Provigil] 200 mg PO QAM 03/21/19 10/05/19 Ondansetron HCl [Zofran] 8 mg PO TID PRN 03/21/19 10/05/19 SUMAtriptan SUCCINATE [Imitrex] 50 mg PO ONCE PRN 03/21/19 10/05/19 cloNIDine HCL [Catapres] 0.1 mg PO HS 03/21/19 10/05/19 Desvenlafaxine [Desvenlafaxine ER] 50 mg PO DAILY 10/05/19 10/05/19 Prazosin [Minipress] 1 mg PO BID 10/05/19 10/05/19 Previous Rx's Medication Instructions Recorded Omeprazole 40 mg PO DAILY #90 capsule. 03/26/18 ALLERGIES: 1. See list SOCIAL HISTORY: No active tobacco use. Has limited financial resources. FAMILY HISTORY: No family history of ulcerative colitis disease or Crohn's disease. She does have a family history of morbid obesity. She denies any lupus in her family. No reports of stomach or esophageal cancer. She has a family history of diabetes. REVIEW OF ORGAN SYSTEMS: CONSTITUTIONAL: Her highest weight was 395 pounds. At her height of 5 foot 7.25 inches, her ideal body weight is 158 pounds. Her highest body mass index was 61.5. HEENT: Denies any active troubles with hearing. Has troubles with swallowing. Wears glasses. ENDOCRINE: No diabetes. Has hypothyroidism. CARDIOVASCULAR: No reports of palpitations or heart attacks or chest pain. RESPIRATORY: Resolved daytime somnolence including snoring and sleep apnea. No asthma. GI: Denies any bright red blood per rectum or constipation. Has troubles swallowing. MUSCULOSKELETAL: Has lower back pain and joint pain. Has osteoarthritis of the hips and knees. NEURO: Has headaches. No seizure disorders. New neurological disorders of multiple sclerosis. PSYCH: Has depression without suicidal ideation. Has anxiety. RHEUMATOLOGIC: No lupus. No rheumatoid arthritis. Has multiple sclerosis HEMATOLOGIC: Denies any abnormal bleeding or bruising. No personal history of DVTs. SKIN: Has panniculitis. No skin cancer. : Has bladder urgency PHYSICAL EXAM: VITAL SIGNS: Height 5 foot 7.25 inches, weight 317 pounds. BMI 49.3 Vital Signs Temp 98.4 F 10/05/19 16:00 Pulse 98 10/05/19 16:00 Resp 20 10/05/19 16:00 BP 110/74 10/05/19 16:00 Pulse Ox GENERAL: Well-developed female in no acute distress. HEENT: No scleral icterus. Extraocular movements grossly intact. Hears conversational speech. No nasal drainage. NECK: Supple without lymphadenopathy. CHEST: Nonlabored respirations with equal bilateral excursions. CARDIOVASCULAR: Regular rate. Distal 2+ pulses. ABDOMEN: Obese, soft, nondistended. MUSCULOSKELETAL: No clubbing, cyanosis. No pitting edema. NEURO: No focal or lateralizing signs. Cranial nerves 2 through 12 grossly within normal limits. PSYCH: Appropriate affect. Alert and oriented to person, place and time. SKIN: Fair skin turgor. Well perfused. ASSESSMENT: 1. Morbid obesity due to excess calories 2. Body mass index 61.5 down to 49.3 3. Irritable bowel syndrome. 4. Obstructive sleep apnea. 5. Osteoarthritis of the hips 6. Hypertensive heart disease. 7. Gastroesophageal reflux disease 8. Anxiety. 9. Depression. 10. Migraines. 11. Overactive bladder. 12. Chronic back pain. 13. Degenerative joint disease. 14. Asthma. 15. Multiple sclerosis 16. Weight gain following bariatric procedure PLAN: 1. She comes in with weight gain. Recommend evaluation with bariatric neonatologist with her limited diet due to intolerance of artificial sweetners and taste alteration. 2. Recommend esophagram as multiple sclerosis may also cause dysphagia. 3. Recommend EGD after esophagram for rigid dilation/balloon dilation of es ophageal strictures 4. For her change in taste, recommend lemon with water and variety of teas for hydration. 5. Recommend bariatric labs Objective - Vital Signs Vital signs: Vital Signs Temp 98.4 F 10/05/19 16:00 Pulse 98 10/05/19 16:00 Resp 20 10/05/19 16:00 BP 110/74 10/05/19 16:00 Pulse Ox Intake & Output 10/04/19 10/05/19 10/05/19 18:59 06:59 18:59 Weight 143.97 kg
== END | disposition home or self-care (01) ==
LOC: BARWHC3 15:25
PROVIDERS: ATTEND Surgery Plastic and Reconstructive Surgery
DX: Z48.815 Encounter for surgical aftercare following surgery on the digestive system (principal); E66.01 Morbid (severe) obesity due to excess calories; K58.9 Irritable bowel syndrome, unspecified; G47.33 Obstructive sleep apnea (adult) (pediatric); M16.0 Bilateral primary osteoarthritis of hip; I11.9 Hypertensive heart disease without heart failure; K21.9 Gastro-esophageal reflux disease without esophagitis; F41.8 Other specified anxiety disorders; G43.909 Migraine, unspecified, not intractable, without status migrainosus; N32.81 Overactive bladder; G89.29 Other chronic pain; M54.9 Dorsalgia, unspecified; M19.90 Unspecified osteoarthritis, unspecified site; J45.909 Unspecified asthma, uncomplicated; G35 Multiple sclerosis; K95.89 Other complications of other bariatric procedure; Z83.49 Family history of other endocrine, nutritional and metabolic diseases; Z68.42 Body mass index [BMI] 45.0-49.9, adult; Z79.899 Other long term (current) drug therapy; Z79.890 Hormone replacement therapy; Z79.3 Long term (current) use of hormonal contraceptives; Z79.891 Long term (current) use of opiate analgesic; Z98.84 Bariatric surgery status
CPT/HCPCS: 99211

== ENCOUNTER → 2019-10-26 | Outpatient (CLI) | payer OTHER ==
[2019-10-26 15:41] LABS: INR 0.9 (<1.2); Prothrombin Time 9.8 sec (9.0-12.0)
[2019-10-26 15:49] LABS: Partial Thromboplastin Time 20.4 sec (22.0-30.0)
[2019-10-26 15:56] LABS: HGB 13.6 gm/dL (11.4-16.0); MCH 32.6 pg (25.0-35.0); MCHC 32.4 g/dL (31.0-37.0); MCV 100.5 fL (80.0-100.0); Mean Platelet Volume 10.6; Platelet Count 207 k/uL (150-450); RBC 4.18 m/uL (3.80-5.40); RDW 12.2 % (11.5-15.5); WBC 11.3 k/uL (3.8-10.6)
[2019-10-27 00:53] LABS: Ferritin 13.6 ng/mL (10.0-291.0); Folate, Serum 15.1 ng/mL
[2019-10-27 02:00] LABS: % Iron Saturation 22.69 (12.00-45.00); African American GFR (CKD) 117.9 (60.0-200.0); Albumin 4.5 g/dL (3.80-4.90); Albumin/Globulin Ratio 2.65 (1.60-3.17); Anion Gap 8.3 mmol/L (4.00-12.00); BUN/Creat Ratio 18.75 Ratio (12.00-20.00); Calcium 9.2 mg/dL (8.7-10.3); Carbon Dioxide 22.7 mmol/L (21.6-31.8); Chol/HDL Ratio 1.57; Globulin 1.7 g/dL (1.6-3.3); LDL Cholesterol,Calculated 47.8 mg/dL (0.0-131.0); Magnesium 1.8 mg/dL (1.5-2.4); Non-African American GFR(CKD) 101.8 (60.0-200.0); Potassium 4.1 mmol/L (3.5-5.5); Total Bilirubin 0.3 mg/dL (0.3-1.2); Total Protein 6.2 g/dL (6.2-8.2); VLDL Calculation 10.2 mg/dL (5.00-40.00)
[2019-10-27 04:04] LABS: Hemoglobin A1C 4.8 % (4.0-6.0)
[2019-10-27 10:35] VITALS: BMI 49.3
[2019-10-28 08:10] LABS: Vit B1(Thiamine) 75 ug/L (38-122)
[2019-10-28 11:54] LABS: Zinc, Serum 69 ug/dL (60-130)
[2019-10-29 02:36] LABS: Selenium 113 mcg/L (63-160)
[2019-10-31 07:17] LABS: Vitamin A 90 ug/dL (38-106)
== END | disposition home or self-care (01) ==
LOC: BARWHC3 13:52
PROVIDERS: ATTEND Surgery Plastic and Reconstructive Surgery
DX: E66.01 Morbid (severe) obesity due to excess calories (principal); Z68.42 Body mass index [BMI] 45.0-49.9, adult; Z98.84 Bariatric surgery status; E21.1 Secondary hyperparathyroidism, not elsewhere classified; E89.1 Postprocedural hypoinsulinemia; D50.9 Iron deficiency anemia, unspecified; K90.9 Intestinal malabsorption, unspecified; E55.9 Vitamin D deficiency, unspecified; K74.1 Hepatic sclerosis; N19 Unspecified kidney failure; K50.90 Crohn's disease, unspecified, without complications
CPT/HCPCS: 80053; 80061; 82306; 82525; 82607; 82728; 82746; 83036; 83540; 83550; 83735; 83970; 84100; 84134; 84255; 84425; 84443; 84590; 84630; 85027; 85610; 85730; 97803

== ENCOUNTER → 2019-11-02 | Outpatient (CLI) | payer OTHER ==
--- NOTE | 2019-11-02 10:47 | FL ---
ESOPHOGRAM. HISTORY: Dysphagia Esophagram was performed per the air contrast technique. The patient swallowed barium and effervesce nt crystals without difficulty or delay. Esophageal peristalsis and motility appear to be within normal limits. There is no evidence for filling defect, mass or diverticulum. No hiatal hernia seen. Subsequently single contrast cervical esophagram was performed which fails demonstrate evidence for a spiration penetration or mass. IMPRESSION: Unremarkable study.
== END | disposition home or self-care (01) ==
LOC: RADUSWWP 10:04
PROVIDERS: ATTEND Surgery Plastic and Reconstructive Surgery
DX: R13.10 Dysphagia, unspecified (principal)
CPT/HCPCS: 74220

== ENCOUNTER → 2020-03-09 | Outpatient (CLI) | payer OTHER ==
--- NOTE | 2020-03-09 10:59 | US ---
EXAMINATION TYPE: US thyroid st tissue head/neck DATE OF EXAM: 03/09/2020 COMPARISON: MRI cervical spine October 18, 2019 CLINICAL HISTORY: E07.9 Disorder of thyroid. GLAND SIZE: Right Lobe: 4.8 x 1.1 x 1.2 cm Overall Parenchyma: homogenous Left Lobe: 4.7 x 0.8 x 1.2 cm Overall Parenchyma: homogeneous Isthmus Thickness: 0.3 cm NODULES RIGHT: # of nodules measured on right: 0 LEFT: # of nodules measured on left: 0 ISTHMUS: # of nodules measured in the isthmus: 0 Bilateral neck scanned, no evidence of lymphadenopathy. Normal-sized homogeneous thyroid without discrete nodule. IMPRESSION: Unremarkable study.
--- NOTE | 2020-03-09 17:37 | CT ---
EXAMINATION TYPE: CT soft tissue neck w con DATE OF EXAM: 03/09/2020 11:21 AM COMPARISON: Outside institution MRI cervical spine 10/18/2019. HISTORY: dysphagia, abnormal mri CT DLP: 637.5 mGycm Automated exposure control for dose reduction was used. CONTRAST: CT scan of the neck is performed following with IV Contrast, patient injected with 100 mL of Isovue 3 00. Axial images are obtained, coronal and sagittal reformatted images are reviewed. FINDINGS: Airway: No gross abnormality seen. Parotid/submandibular glands: No gross abnormality seen. Carotid/Vascular Structures: Patent. Osseous Structures: Intact. Other: Homogenous appearance of the thyroid gland. No cervical lymphadenopathy globes are grossly sym metric. Visualized paranasal sinuses and mastoid air cells are clear. IMPRESSION: Unremarkable CT of the neck.
== END | disposition home or self-care (01) ==
LOC: RADUSWWP 10:31
PROVIDERS: ATTEND Psychiatry & Neurology Neurology
DX: E07.9 Disorder of thyroid, unspecified (principal); R13.10 Dysphagia, unspecified
CPT/HCPCS: 76536; 70491; Q9967

== ENCOUNTER 2020-03-20 22:48 | Emergency (ER) | payer OTHER ==
[2020-03-20 23:19] LABS: Basophils % (A) 0 %; Eosinophils # (A) 0.3 k/uL (0-0.7); Eosinophils % (A) 3 %; HCT 41.2 % (34.0-46.0); HGB 13.8 gm/dL (11.4-16.0); Lymphocytes # (A) 2.8 k/uL (1.0-4.8); Lymphocytes % (A) 25 %; MCH 31.7 pg (25.0-35.0); MCHC 33.5 g/dL (31.0-37.0); MCV 94.5 fL (80.0-100.0); Mean Platelet Volume 8.7; Monocytes # (A) 0.5 k/uL (0-1.0); Monocytes % (A) 4 %; Neutrophils # (A) 7.3 k/uL (1.3-7.7); Neutrophils % (A) 67 %; Platelet Count 228 k/uL (150-450); RBC 4.36 m/uL (3.80-5.40); RDW 12.2 % (11.5-15.5); WBC 10.9 k/uL (3.8-10.6)
[2020-03-20 23:31] LABS: ALT 17 U/L (4-34); AST 22 U/L (14-36); African American GFR (CKD) >90 (>60 ml/min/1.73 sqM); Albumin 3.5 g/dL (3.5-5.0); Alkaline Phosphatase 77 U/L (38-126); Amylase 51 U/L (30-110); Anion Gap 4 mmol/L; Blood Urea Nitrogen 9 mg/dL (7-17); Calcium 8.7 mg/dL (8.4-10.2); Carbon Dioxide 23 mmol/L (22-30); Chloride 112 mmol/L (98-107); Glucose 101 mg/dL (74-99); Lipase 227 U/L (23-300); Non-African American GFR(CKD) >90 (>60 ml/min/1.73 sqM); Potassium 4.3 mmol/L (3.5-5.1); Sodium 139 mmol/L (137-145); Total Bilirubin 0.2 mg/dL (0.2-1.3); Total Protein 5.7 g/dL (6.3-8.2)
[2020-03-21 00:01] LABS: Appearance,Urine Clear (Clear); Bilirubin,Urine Negative (Negative); Blood,Urine Negative (Negative); Color,Urine Yellow; Glucose,Urine (UA) Negative (Negative); Ketones,Urine Negative (Negative); Leukocyte Esterase,Urine Negative (Negative); Nitrite,Urine Negative (Negative); PH, Urine 7.5 (5.0-8.0); Protein,Urine Negative (Negative); Specific Gravity,Urine 1.021 (1.001-1.035); Urobilinogen,Urine <2.0 mg/dL (<2.0)
[2020-03-21] MEDS ORDERED: SODIUM CHLORIDE 0.9% 1,000 ML IV STA (00:27)
[2020-03-21] MEDS ORDERED: ONDANSETRON 4 MG/2 ML VIAL IVP STA (00:42)
[2020-03-21] MEDS ORDERED: HYDROmorphone 0.5 MG/0.5 ML SYRINGE IVP STA ×2 (00:43→01:59)
--- NOTE | 2020-03-21 01:35 | CT ---
EXAM: CT Abdomen and Pelvis With Intravenous Contrast CLINICAL HISTORY: Bariatric surgery. TECHNIQUE: Axial computed tomography images of the abdomen and pelvis with intravenous contrast. CTDI is 74.584 mGy and DLP is 3153 mGy-cm. This CT exam was performed using one or more of the following dose reduction techniques: automated exposure control, adjustment of the mA and/or kV according to patient size, and/or use of iterative reconstruction technique. COMPARISON: March 21, 2019. FINDINGS: Lung bases: Unremarkable. No mass. No consolidation. ABDOMEN: Liver: Unremarkable. No mass. Gallbladder and bile ducts: Previous cholecystectomy. No ductal dilation. Pancreas: Unremarkable. No mass. No ductal dilation. Spleen: Unremarkable. No splenomegaly. Adrenals: Unremarkable. No mass. Kidneys and ureters: Unremarkable. No solid mass. No hydronephrosis. Stomach and bowel: Previous gastric bypass. No evidence of gastric or small bowel obstruction. No mucosal thickening. PELVIS: Appendix: No findings to suggest acute appendicitis. Bladder: Unremarkable. No mass. ABDOMEN and PELVIS: Intraperitoneal space: Unremarkable. No free air. No significant fluid collection. Bones/joints: No acute fracture. No dislocation. Soft tissues: Unremarkable. Vasculature: Unremarkable. No abdominal aortic aneurysm. Lymph nodes: Unremarkable. No enlarged lymph nodes. IMPRESSION: No acute findings in the abdomen or pelvis.
--- NOTE | 2020-03-21 02:08 | ED ---
General Adult HPI - General Chief complaint: Abdominal Pain Stated complaint: Abdominal Pain Time Seen by Provider: 03/20/20 23:59 Source: patient, RN notes reviewed Mode of arrival: ambulatory Limitations: no limitations - History of Present Illness Initial comments: 24-year-old female with a past medical history of gastric bypass 2 years ago presents to the emergency department for a chief complaint of abdominal pain x 1 month. Patient reports she has had abdominal pain for one month. States it is mostly in the left upper abdomen. Patient also has nausea. She has felt warm on and off. Denies diarrhea. Reports that she has seen her primary care and had an ultrasound which was negative. Patient reports that her surgeon is Dr. Zuleta.Patient has no other complaints at this time including shortness of breath, chest pain, headache, or visual changes. - Related Data Home Medications Medication Instructions Recorded Confirmed Zonisamide 200 mg PO HS 04/06/15 10/05/19 Gabapentin [Neurontin] 600 mg PO TID 03/18/16 10/05/19 QUEtiapine [SEROquel] 50 mg PO HS 04/29/17 10/05/19 ARIPiprazole [Abilify] 10 mg PO DAILY 01/27/18 10/05/19 Albuterol Inhaler (Mhu) [Ventolin 90 mcg INHALATION RT-QID PRN 01/29/18 10/05/19 Hfa Inhaler (Mhu)] traMADol HCl [Ultram] 100 mg PO TID PRN 03/25/18 10/05/19 Set[place]akin Oral Contraceptive 1 tab PO HS 09/08/18 10/05/19 Acetaminophen [Tylenol Extra 1,000 mg PO TID PRN 10/05/18 10/05/19 Strength] Butalb/APAP/Caff 50-325-40Mg 1 tab PO TID PRN 10/05/18 10/05/19 [Fioricet 50-325-40] Ergocalciferol (Vitamin D2) 50,000 unit PO MO 10/05/18 10/05/19 [Vitamin D2] Melatonin 5 mg PO HS PRN 10/05/18 10/05/19 Multivit with Calcium,Iron,Min 1 tab PO DAILY 10/05/18 10/05/19 [Women's Multivitamin] Tamsulosin HCl [Flomax] 0.4 mg PO HS 10/05/18 10/05/19 Baclofen [Lioresal] 20 mg PO TID 03/21/19 10/05/19 Galcanezumab-Gnlm [Emgality Pen] 120 mg SQ Q30D 03/21/19 10/05/19 Levothyroxine Sodium [Synthroid] 50 mcg PO DAILY 03/21/19 10/05/19 Loratadine [Claritin] 10 mg PO DAILY PRN 03/21/19 10/05/19 Meclizine HCl 25 mg PO TID PRN 03/21/19 10/05/19 Ondansetron HCl [Zofran] 8 mg PO TID PRN 03/21/19 10/05/19 SUMAtriptan succinate [Imitrex] 50 mg PO ONCE PRN 03/21/19 10/05/19 cloNIDine HCL [Catapres] 0.1 mg PO HS 03/21/19 10/05/19 modafiniL [Provigil] 200 mg PO QAM 03/21/19 10/05/19 Desvenlafaxine [Desvenlafaxine ER] 50 mg PO DAILY 10/05/19 10/05/19 Prazosin [Minipress] 1 mg PO BID 10/05/19 10/05/19 Previous Rx's Medication Instructions Recorded Omeprazole 40 mg PO DAILY #90 capsule. 03/26/18 Allergies Allergy/AdvReac Type Severity Reaction Status Date / Time peanut Allergy Anaphylaxis Verified 03/20/20 22:52 aspartame AdvReac Diarrhea Verified 03/20/20 22:52 codeine AdvReac Dyspnea Verified 03/20/20 22:52 fingolimod [From [place]] AdvReac Abdominal Verified 03/20/20 22:52 Pain ibuprofen AdvReac Abdominal Verified 03/20/20 22:52 Pain morphine AdvReac Dyspnea Verified 03/20/20 22:52 Review of Systems ROS Statement: Those systems with pertinent positive or pertinent negative responses have been documented in the HPI. ROS Other: All systems not noted in ROS Statement are negative. 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 Past Anesthesia/Blood Transfusion Reactions: No Reported Reaction Past Psychological History: Anxiety, Depression Smoking Status: Never smoker Past Alcohol Use History: None Reported Past Drug Use History: None Reported - Past Family History Mother Family Medical History: Diabetes Mellitus General Exam Limitations: no limitations General appearance: alert, in no apparent distress Head exam: Present: atraumatic, normocephalic, normal inspection Eye exam: Present: normal appearance, PERRL, EOMI. Absent: scleral icterus, conjunctival injection, periorbital swelling ENT exam: Present: normal exam, mucous membranes moist Neck exam: Present: normal inspection, full ROM. Absent: tenderness, meningismus, lymphadenopathy Respiratory exam: Present: normal lung sounds bilaterally. Absent: respiratory distress, wheezes, rales, rhonchi, stridor Cardiovascular Exam: Present: regular rate, normal rhythm, normal heart sounds. Absent: systolic murmur, diastolic murmur, rubs, gallop, clicks GI/Abdominal exam: Present: soft, tenderness (Mild left upper quadrant tenderness without lower abdominal tenderness. No right upper quadrant tenderness.), normal bowel sounds. Absent: distended, guarding, rebound, rigid Course Vital Signs 03/20/20 22:49 Temperature 99.2 F Pulse Rate 84 Respiratory 20 Rate Blood Pressure 145/97 O2 Sat by Pulse 96 Oximetry Medical Decision Making - Medical Decision Making Vitals are stable. CBC CMP unremarkable. Lipase is within normal limits. Urinalysis is negative. HCG negative. CT abdomen and pelvis shows no acute findings. This was done with bariatric prep. Patient was given pain medication which did improve her symptoms. She does not have any vomiting when in the emergency room. Patient does have a history of ulcers however is currently on Carafate and Prilosec. I did recommend patient follow-up with her surgeon as well as primary care. She is agreeable to this. She will return for any worsening symptoms. - Lab Data Result diagrams: 03/20/20 23:09 03/20/20 23:09 Lab Results 03/20/20 03/20/20 03/20/20 Range/Units 23:09 23:09 23:49 WBC 10.9 H (3.8-10.6) k/uL RBC 4.36 (3.80-5.40) m/uL Hgb 13.8 (11.4-16.0) gm/dL Hct 41.2 (34.0-46.0) % MCV 94.5 (80.0-100.0) fL MCH 31.7 (25.0-35.0) pg MCHC 33.5 (31.0-37.0) g/dL RDW 12.2 (11.5-15.5) % Plt Count 228 (150-450) k/uL MPV 8.7 Neutrophils % 67 % Lymphocytes % 25 % Monocytes % 4 % Eosinophils % 3 % Basophils % 0 % Neutrophils # 7.3 (1.3-7.7) k/uL Lymphocytes # 2.8 (1.0-4.8) k/uL Monocytes # 0.5 (0-1.0) k/uL Eosinophils # 0.3 (0-0.7) k/uL Basophils # 0.0 (0-0.2) k/uL Sodium 139 (137-145) mmol/L Potassium 4.3 (3.5-5.1) mmol/L Chloride 112 H (98-107) mmol/L Carbon Dioxide 23 (22-30) mmol/L Anion Gap 4 mmol/L BUN 9 (7-17) mg/dL Creatinine 0.65 (0.52-1.04) mg/dL Est GFR (CKD-EPI)AfAm >90 (>60 ml/min/1.73 sqM) Est GFR (CKD-EPI)NonAf >90 (>60 ml/min/1.73 sqM) Glucose 101 H (74-99) mg/dL Calcium 8.7 (8.4-10.2) mg/dL Total Bilirubin 0.2 (0.2-1.3) mg/dL AST 22 (14-36) U/L ALT 17 (4-34) U/L Alkaline Phosphatase 77 (38-126) U/L Total Protein 5.7 L (6.3-8.2) g/dL Albumin 3.5 (3.5-5.0) g/dL Amylase 51 (30-110) U/L Lipase 227 (23-300) U/L Urine Color Yellow Urine Appearance Clear (Clear) Urine pH 7.5 (5.0-8.0) Ur Specific [place] 1.021 (1.001-1.035) Urine Protein Negative (Negative) Urine Glucose (UA) Negative (Negative) Urine Ketones Negative (Negative) Urine Blood Negative (Negative) Urine Nitrite Negative (Negative) Urine Bilirubin Negative (Negative) Urine Urobilinogen <2.0 (<2.0) mg/dL Ur Leukocyte Esterase Negative (Negative) Urine HCG, Qual (Not Detectd) 03/20/20 Range/Units 23:49 WBC (3.8-10.6) k/uL RBC (3.80-5.40) m/uL Hgb (11.4-16.0) gm/dL Hct (34.0-46.0) % MCV (80.0-100.0) fL MCH (25.0-35.0) pg MCHC (31.0-37.0) g/dL RDW (11.5-15.5) % Plt Count (150-450) k/uL MPV Neutrophils % % Lymphocytes % % Monocytes % % Eosinophils % % Basophils % % Neutrophils # (1.3-7.7) k/uL Lymphocytes # (1.0-4.8) k/uL Monocytes # (0-1.0) k/uL Eosinophils # (0-0.7) k/uL Basophils # (0-0.2) k/uL Sodium (137-145) mmol/L Potassium (3.5-5.1) mmol/L Chloride (98-107) mmol/L Carbon Dioxide (22-30) mmol/L Anion Gap mmol/L BUN (7-17) mg/dL Creatinine (0.52-1.04) mg/dL Est GFR (CKD-EPI)AfAm (>60 ml/min/1.73 sqM) Est GFR (CKD-EPI)NonAf (>60 ml/min/1.73 sqM) Glucose (74-99) mg/dL Calcium (8.4-10.2) mg/dL Total Bilirubin (0.2-1.3) mg/dL AST (14-36) U/L ALT (4-34) U/L Alkaline Phosphatase (38-126) U/L Total Protein (6.3-8.2) g/dL Albumin (3.5-5.0) g/dL Amylase (30-110) U/L Lipase (23-300) U/L Urine Color Urine Appearance (Clear) Urine pH (5.0-8.0) Ur Specific [place] (1.001-1.035) Urine Protein (Negative) Urine Glucose (UA) (Negative) Urine Ketones (Negative) Urine Blood (Negative) Urine Nitrite (Negative) Urine Bilirubin (Negative) Urine Urobilinogen (<2.0) mg/dL Ur Leukocyte Esterase (Negative) Urine HCG, Qual Not Detected (Not Detectd) Disposition Clinical Impression: Abdominal pain Disposition: HOME SELF-CARE Condition: Good Instructions (If sedation given, give patient instructions): Abdominal Pain (ED) Additional Instructions: Please continue your medications. Follow-up with your doctor in one to 2 days. Return to the emergency room for any worsening symptoms. Is patient prescribed a controlled substance at d/c from ED?: No Referrals: Parminder Torres DO [Primary Care Provider] - 1-2 days Time of Disposition: 02:07
[2020-03-21 02:38] VITALS: BP 146/85; PULSE 71; RESP 18; TEMP 96.1
== END 2020-03-21 02:36 | disposition home or self-care (01) ==
LOC: EC 22:48
DX: R10.12 Left upper quadrant pain (principal); R11.0 Nausea; F41.9 Anxiety disorder, unspecified; F32.9 Major depressive disorder, single episode, unspecified; J45.909 Unspecified asthma, uncomplicated; Z79.899 Other long term (current) drug therapy; Z88.5 Allergy status to narcotic agent; Z88.6 Allergy status to analgesic agent; Z88.8 Allergy status to other drugs, medicaments and biological substances; Z91.010 Allergy to peanuts; Z86.14 Personal history of Methicillin resistant Staphylococcus aureus infection; Z90.49 Acquired absence of other specified parts of digestive tract; Z86.69 Personal history of other diseases of the nervous system and sense organs
CPT/HCPCS: 36415; 80053; 82150; 83690; 85025; 81003; 81025; 74177; 99284; 96374; 96375; 96376; 96361; J2405; J1170; Q9967 ×2

== ENCOUNTER → 2020-04-10 | Outpatient (CLI) | payer OTHER ==
--- NOTE | 2020-04-11 08:39 | CT ---
EXAMINATION TYPE: CT pelvis wo con DATE OF EXAM: 04/10/2020 COMPARISON: 03/21/2020 HISTORY: 24-year-old female sacral pain following fall months ago TECHNIQUE: Contiguous axial scanning of the pelvis without IV contrast. Coronal and sagittal reconstr uctions performed. CT DLP: 919 mGycm Automated exposure control for dose reduction was used. FINDINGS: Staple line from the patient's Cecil-en-Y gastric bypass lower anastomosis is visualized. No dilated s mall bowel. Large patient body habitus resulting in prominent beam hardening and noise artifacts. Normal appendix. Scattered mild stool. Bladder incompletely distended. Uterus anteverted but not well delineated due to the extensive artifa cts. Ovaries are not well delineated due to artifacts and clustered bowel loops in the pelvis. Limite d assessment for any cul-de-sac fluid. Mild degenerative change at the hips. Assessment of the sacrum and coccyx is limited due to the artifacts. No obvious displaced or angulate d fracture is clearly identified. IMPRESSION: MILD DEGENERATIVE CHANGE OF BOTH HIPS. LARGE PATIENT BODY HABITUS RESULTING IN EXTENSIVE ARTIFACTS LI MITING ASSESSMENT OF THE SACRUM AND COCCYX. NO OBVIOUS DISPLACED OR ANGULATED FRACTURE IS IDENTIFIED.
== END | disposition home or self-care (01) ==
LOC: RADCTMAIN 16:54
PROVIDERS: ATTEND Orthopaedic Surgery
DX: R10.2 Pelvic and perineal pain (principal); Z88.5 Allergy status to narcotic agent
CPT/HCPCS: 72192

== ENCOUNTER → 2020-06-22 | Outpatient (CLI) | payer OTHER ==
--- NOTE | 2020-06-22 21:05 | CT ---
EXAMINATION TYPE: CT brain wo con DATE OF EXAM: 06/22/2020 COMPARISON: 05/20/2018. HISTORY: Shakiness and double vision. Hx of MS. CT DLP: 776.2 mGycm. Automated Exposure Control for Dose Reduction was Utilized. TECHNIQUE: CT scan of the head is performed without contrast. FINDINGS: There is no acute intracranial hemorrhage, mass effect, or midline shift identified. The ventricles and sulci are within normal limits in size. The globes are intact and the visualized sin uses are clear. IMPRESSION: No acute intracranial hemorrhage, mass effect, or midline shift is seen.
== END | disposition home or self-care (01) ==
LOC: RADCTMAIN 18:17
PROVIDERS: ATTEND Psychiatry & Neurology Pain Medicine
DX: G93.9 Disorder of brain, unspecified (principal)
CPT/HCPCS: 70450

== ENCOUNTER 2020-07-04 21:15 | Emergency (ER) | payer OTHER ==
[2020-07-04 21:20] VITALS: TEMP 99.3
[2020-07-04] MEDS ORDERED: SODIUM CHLORIDE 0.9% 1,000 ML IV STA (21:44)
[2020-07-04] MEDS ORDERED: PANTOPRAZOLE 40 MG/10 ML VIAL IVP STA (21:44)
[2020-07-04] MEDS ORDERED: ONDANSETRON 4 MG/2 ML VIAL IVP STA (21:44)
--- NOTE | 2020-07-04 21:58 | ED ---
Abdominal Pain HPI - General Chief Complaint: Abdominal Pain Stated Complaint: Abd Pain, Nausea Time Seen by Provider: 07/04/20 21:26 Source: patient Mode of arrival: ambulatory Limitations: no limitations - History of Present Illness Initial Comments: Patient is a 25-year-old female presenting to the emergency Department with complaints of left-sided abdominal pain has been increasing over the past week. She states she's been dealing with this pain on and off for a few months, she was evaluated in this ER in March for same complaint, there is no acute findings. She has history of gastric bypass in 2018, cholecystectomy. She has been having regular bowel movements, passing gas. She does admit to some nausea, no vomiting. She admits to subjective fevers, no chest pain, no shortness of breath. She denies any radiation of the pain. She denies being . She denies any dysuria. She has no further complaints at this time. Upon arrival to the ER, her vital signs are stable. - Related Data Home Medications Medication Instructions Recorded Confirmed Zonisamide 200 mg PO HS 04/06/15 07/04/20 QUEtiapine [SEROquel] 25 mg PO HS 04/29/17 07/04/20 [place] Oral Contraceptive 1 tab PO HS 09/08/18 07/04/20 Butalb/APAP/Caff 50-325-40Mg 1 tab PO TID PRN 10/05/18 07/04/20 [Fioricet 50-325-40] Ergocalciferol (Vitamin D2) 50,000 unit PO MO 10/05/18 07/04/20 [Vitamin D2] Baclofen [Lioresal] 20 mg PO TID 03/21/19 07/04/20 Galcanezumab-Gnlm [Emgality Pen] 120 mg SQ Q30D 03/21/19 07/04/20 Levothyroxine Sodium [Synthroid] 50 mcg PO DAILY 03/21/19 07/04/20 Loratadine [Claritin] 10 mg PO DAILY PRN 03/21/19 07/04/20 Meclizine HCl 25 mg PO TID PRN 03/21/19 07/04/20 cloNIDine HCL [Catapres] 0.1 mg PO HS 03/21/19 07/04/20 modafiniL [Provigil] 200 mg PO BID 03/21/19 07/04/20 ondansetron HCL [Zofran] 8 mg PO TID PRN 03/21/19 07/04/20 ARIPiprazole [Abilify] 2 mg PO HS 07/04/20 07/04/20 ARIPiprazole [Abilify] 5 mg PO HS 07/04/20 07/04/20 Carboxymethylcellulose Sodium 1 drop BOTH EYES QID PRN 07/04/20 07/04/20 [Refresh Tears] Cromolyn Sodium 1 drop BOTH EYES BID 07/04/20 07/04/20 Desvenlafaxine [Pristiq ER] 100 mg PO DAILY 07/04/20 07/04/20 Eletriptan HBr [Relpax] 40 mg PO DAILY PRN 07/04/20 07/04/20 Fluticasone Propionate [Flovent 2 puff INHALATION RT-BID 07/04/20 07/04/20 Hfa 220 mcg] Gabapentin 600 mg PO QID 07/04/20 07/04/20 HYDROcodone/APAP 10-325MG [[place] 1 tab PO TID 07/04/20 07/04/20 10-325] Ketotifen 0.025% Ophth Soln 1 drop BOTH EYES BID 07/04/20 07/04/20 [Zaditor] Montelukast Sodium [Singulair] 10 mg PO HS 07/04/20 07/04/20 Oxybutynin Chloride [Oxybutynin 10 mg PO HS 07/04/20 07/04/20 Chloride ER] Pediatric Multivitamin No.30 2 tab PO DAILY 07/04/20 07/04/20 [Multivitamin Children's Gummies] Prazosin HCl 5 mg PO HS 07/04/20 07/04/20 Pseudoephedrine 12Hr [Sudafed 12Hr] 120 mg PO Q12H PRN 07/04/20 07/04/20 Sucralfate [Carafate] 1 gm PO BID 07/04/20 07/04/20 busPIRone HCL 10 mg PO TID 07/04/20 07/04/20 Previous Rx's Medication Instructions Recorded Omeprazole 40 mg PO DAILY #90 capsule. 03/26/18 Allergies Allergy/AdvReac Type Severity Reaction Status Date / Time peanut Allergy Anaphylaxis Verified 02/24/21 22:57 aspartame AdvReac Diarrhea Verified 07/04/20 22:57 codeine AdvReac Dyspnea Verified 07/04/20 22:57 fingolimod [From [employer]] AdvReac Abdominal Verified 07/04/20 22:57 Pain ibuprofen AdvReac Abdominal Verified 07/04/20 22:57 Pain morphine AdvReac Dyspnea Verified 07/04/20 22:57 Review of Systems ROS Statement: Those systems with pertinent positive or pertinent negative responses have been documented in the HPI. ROS Other: All systems not noted in ROS Statement are negative. 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 Past Anesthesia/Blood Transfusion Reactions: No Reported Reaction Past Psychological History: Anxiety, Depression Smoking Status: Never smoker Past Alcohol Use History: None Reported Past Drug Use History: None Reported - Past Family History Mother Family Medical History: Diabetes Mellitus General Exam - General Exam Comments Initial Comments: GENERAL: Patient is well-developed and well-nourished. Patient is nontoxic and in no acute distress. HEAD: Atraumatic, normocephalic. EYES: Pupils equal round and reactive to light, extraocular movements intact, sclera anicteric, conjunctiva are normal. Eyelids were unremarkable. ENT: TMs normal, nares patent, oropharynx clear without exudates. Moist mucous membranes. NECK: Normal range of motion, supple without lymphadenopathy or JVD. LUNGS: Unlabored respirations. Breath sounds clear to auscultation bilaterally and equal. No wheezes rales or rhonchi. HEART: Regular rate and rhythm without murmurs, rubs or gallops. ABDOMEN: Pain with palpation of the left side of the abdomen, left upper quadrant. No flank pain, no lower left quadrant pain. Soft, normoactive bowel sounds. No guarding, no rebound. No masses appreciated. : Deferred MUSCULOSKELETAL: Normal extremities with adequate strength and normal range of motion, no pitting or edema. No clubbing or cyanosis. NEUROLOGICAL: Patient is alert and oriented x 3. Motor and sensory are also intact. Cranial nerves II through XII grossly intact. Symmetrical smile. Normal speech, normal gait. PSYCH: Normal mood, normal affect. SKIN: Warm, Dry, normal turgor, no rashes or lesions noted. Limitations: no limitations Course Vital Signs 07/04/20 07/04/20 21:16 23:38 Temperature 99.3 F Pulse Rate 76 60 Respiratory 18 22 Rate Blood Pressure 137/83 113/66 O2 Sat by Pulse 98 98 Oximetry Medical Decision Making - Medical Decision Making Patient is a 25-year-old female here for left-sided abdominal pain has been increasing over the past week. She admits to pain in the same area and treatment for the past few months. She does have history of gastric bypass, cholecystectomy, no other abdominal surgeries. Her vitals are stable, she is afebrile. Labs are completely normal, lipase is normal, lactic acid also normal. Urine shows mild bacteria, urine hCG is not detected. Computed tomography scan of the abdomen and pelvis revealed no acute process seen at this time. Patient was given fluids, pain control. She does report some mild improvement in her symptoms. I discussed that this is a chronic issue and she needs to follow up with her surgeon. She states she does have an appointment with Dr. Martinez next week. Patient is stable for discharge. Patient is in agreement with this plan of care. Return parameters were discussed with the patient and they verbalized understanding. Case discussed with Dr. Jiménez. - Lab Data Result diagrams: 07/04/20 21:47 07/04/20 21:47 Lab Results 07/04/20 07/04/20 07/04/20 Range/Units 21:47 21:47 21:47 WBC 6.8 (3.8-10.6) k/uL RBC 4.40 (3.80-5.40) m/uL Hgb 13.0 (11.4-16.0) gm/dL Hct 40.3 (34.0-46.0) % MCV 91.6 (80.0-100.0) fL MCH 29.5 (25.0-35.0) pg MCHC 32.2 (31.0-37.0) g/dL RDW 12.5 (11.5-15.5) % Plt Count 276 (150-450) k/uL MPV 9.6 Neutrophils % 69 % Lymphocytes % 23 % Monocytes % 5 % Eosinophils % 2 % Basophils % 0 % Neutrophils # 4.7 (1.3-7.7) k/uL Lymphocytes # 1.6 (1.0-4.8) k/uL Monocytes # 0.4 (0-1.0) k/uL Eosinophils # 0.1 (0-0.7) k/uL Basophils # 0.0 (0-0.2) k/uL Sodium 140 (137-145) mmol/L Potassium 4.3 (3.5-5.1) mmol/L Chloride 107 (98-107) mmol/L Carbon Dioxide 23 (22-30) mmol/L Anion Gap 10 mmol/L BUN 13 (7-17) mg/dL Creatinine 0.80 (0.52-1.04) mg/dL Est GFR (CKD-EPI)AfAm >90 (>60 ml/min/1.73 sqM) Est GFR (CKD-EPI)NonAf >90 (>60 ml/min/1.73 sqM) Glucose 94 (74-99) mg/dL Plasma Lactic Acid [place] (0.7-2.0) mmol/L Calcium 9.7 (8.4-10.2) mg/dL Total Bilirubin 0.2 (0.2-1.3) mg/dL AST 23 (14-36) U/L ALT 16 (4-34) U/L Alkaline Phosphatase 83 (38-126) U/L Total Protein 6.5 (6.3-8.2) g/dL Albumin 4.3 (3.5-5.0) g/dL Amylase 57 (30-110) U/L Lipase 169 (23-300) U/L Urine Color Urine Appearance (Clear) Urine pH (5.0-8.0) Ur Specific [place] (1.001-1.035) Urine Protein (Negative) Urine Glucose (UA) (Negative) Urine Ketones (Negative) Urine Blood (Negative) Urine Nitrite (Negative) Urine Bilirubin (Negative) Urine Urobilinogen (<2.0) mg/dL Ur Leukocyte Esterase (Negative) Urine RBC (0-5) /hpf Urine WBC (0-5) /hpf Ur Squamous Epith Cells (0-4) /hpf Urine Bacteria (None) /hpf Urine Mucus (None) /hpf Urine HCG, Qual Not Detected (Not Detectd) 07/04/20 07/04/20 Range/Units 21:47 23:23 WBC (3.8-10.6) k/uL RBC (3.80-5.40) m/uL Hgb (11.4-16.0) gm/dL Hct (34.0-46.0) % MCV (80.0-100.0) fL MCH (25.0-35.0) pg MCHC (31.0-37.0) g/dL RDW (11.5-15.5) % Plt Count (150-450) k/uL MPV Neutrophils % % Lymphocytes % % Monocytes % % Eosinophils % % Basophils % % Neutrophils # (1.3-7.7) k/uL Lymphocytes # (1.0-4.8) k/uL Monocytes # (0-1.0) k/uL Eosinophils # (0-0.7) k/uL Basophils # (0-0.2) k/uL Sodium (137-145) mmol/L Potassium (3.5-5.1) mmol/L Chloride (98-107) mmol/L Carbon Dioxide (22-30) mmol/L Anion Gap mmol/L BUN (7-17) mg/dL Creatinine (0.52-1.04) mg/dL Est GFR (CKD-EPI)AfAm (>60 ml/min/1.73 sqM) Est GFR (CKD-EPI)NonAf (>60 ml/min/1.73 sqM) Glucose (74-99) mg/dL Plasma Lactic Acid [place] 1.4 (0.7-2.0) mmol/L Calcium (8.4-10.2) mg/dL Total Bilirubin (0.2-1.3) mg/dL AST (14-36) U/L ALT (4-34) U/L Alkaline Phosphatase (38-126) U/L Total Protein (6.3-8.2) g/dL Albumin (3.5-5.0) g/dL Amylase (30-110) U/L Lipase (23-300) U/L Urine Color Yellow Urine Appearance Clear (Clear) Urine pH 7.0 (5.0-8.0) Ur Specific [place] >1.050 H (1.001-1.035) Urine Protein Trace H (Negative) Urine Glucose (UA) Negative (Negative) Urine Ketones Negative (Negative) Urine Blood Moderate H (Negative) Urine Nitrite Negative (Negative) Urine Bilirubin Negative (Negative) Urine Urobilinogen <2.0 (<2.0) mg/dL Ur Leukocyte Esterase Negative (Negative) Urine RBC 8 H (0-5) /hpf Urine WBC 4 (0-5) /hpf Ur Squamous Epith Cells 4 (0-4) /hpf Urine Bacteria Rare H (None) /hpf Urine Mucus Rare H (None) /hpf Urine HCG, Qual (Not Detectd) Disposition Clinical Impression: Abdominal pain, Nausea Disposition: HOME SELF-CARE Condition: Stable Instructions (If sedation given, give patient instructions): Abdominal Pain (ED ) Additional Instructions: Please return to the Emergency Department if symptoms worsen or any other concerns. Continue to drink plenty of fluids. Please follow up with your surgeon as discussed. Is patient prescribed a controlled substance at d/c from ED?: No Referrals: Parminder Torres DO [Primary Care Provider] - 1-2 days Evie Garg MD [STAFF PHYSICIAN] - 1-2 days
[2020-07-04 22:03] LABS: Basophils % (A) 0 %; Eosinophils # (A) 0.1 k/uL (0-0.7); Eosinophils % (A) 2 %; HCT 40.3 % (34.0-46.0); Lymphocytes # (A) 1.6 k/uL (1.0-4.8); Lymphocytes % (A) 23 %; MCH 29.5 pg (25.0-35.0); MCHC 32.2 g/dL (31.0-37.0); MCV 91.6 fL (80.0-100.0); Mean Platelet Volume 9.6; Monocytes # (A) 0.4 k/uL (0-1.0); Monocytes % (A) 5 %; Neutrophils # (A) 4.7 k/uL (1.3-7.7); Neutrophils % (A) 69 %; Platelet Count 276 k/uL (150-450); RDW 12.5 % (11.5-15.5); WBC 6.8 k/uL (3.8-10.6)
[2020-07-04 22:19] LABS: ALT 16 U/L (4-34); AST 23 U/L (14-36); African American GFR (CKD) >90 (>60 ml/min/1.73 sqM); Albumin 4.3 g/dL (3.5-5.0); Alkaline Phosphatase 83 U/L (38-126); Amylase 57 U/L (30-110); Anion Gap 10 mmol/L; Blood Urea Nitrogen 13 mg/dL (7-17); Calcium 9.7 mg/dL (8.4-10.2); Carbon Dioxide 23 mmol/L (22-30); Chloride 107 mmol/L (98-107); Glucose 94 mg/dL (74-99); Lipase 169 U/L (23-300); Non-African American GFR(CKD) >90 (>60 ml/min/1.73 sqM); Potassium 4.3 mmol/L (3.5-5.1); Sodium 140 mmol/L (137-145); Total Bilirubin 0.2 mg/dL (0.2-1.3); Total Protein 6.5 g/dL (6.3-8.2)
--- NOTE | 2020-07-04 22:52 | CT ---
EXAMINATION TYPE: CT abdomen pelvis w con DATE OF EXAM: 07/04/2020 COMPARISON: 03/21/2020 HISTORY: left sided abdominal pain CT DLP: 3314.4 mGycm Automated exposure control for dose reduction was used. CONTRAST: Performed with IV Contrast, patient injected with 100 mL of Isovue 300. Images obtained from the diaphragm to the floor the pelvis with IV contrast. Lung bases are clear. There is no pleural effusion. Heart size is normal. There is no pericardial eff usion. Liver spleen pancreas appear intact. There clips from gastric bariatric surgery. Gallbladder is absen t. The bile ducts are not dilated. There is no adrenal mass. Kidneys show satisfactory contrast opacification. There is no hydronephrosi s. Delayed images show normal renal excretion. Appendix is posterior and appears normal. There is no evidence of a pelvic mass. Bladder is almost empty. Uterus is anteverted. Anatomy in the pelvis is no t well evaluated. I see no evidence of a pelvic mass. There is no mesenteric edema. There is no ascites or free air. There is no sign of a bowel obstructio n. Lumbar vertebra have normal spacing and alignment. The posterior elements are intact. Bony pelvis is intact. Hip joints are intact. IMPRESSION: Normal appendix. No sign of acute abdomen and pelvis. Previous surgery. I do not see a cause for left side abdominal pain.
[2020-07-04] MEDS ORDERED: KETOROLAC 15 MG/ML 1 ML VIAL IVP STA (23:03)
[2020-07-04 23:41] VITALS: BP 113/66; PULSE 60; RESP 22
[2020-07-04 23:49] LABS: Appearance,Urine Clear (Clear); Bacteria,Urine Rare /hpf; Bilirubin,Urine Negative (Negative); Blood,Urine Moderate (Negative); Color,Urine Yellow; Glucose,Urine (UA) Negative (Negative); Ketones,Urine Negative (Negative); Leukocyte Esterase,Urine Negative (Negative); Mucus,Urine Rare /hpf; Nitrite,Urine Negative (Negative); Protein,Urine Trace (Negative); RBC,Urine 8 /hpf (0-5); Squamous Epithelial Cell,Urine 4 /hpf (0-4); Urobilinogen,Urine <2.0 mg/dL (<2.0); WBC,Urine 4 /hpf (0-5)
[2020-07-04 23:59] LABS: Specific Gravity,Urine >1.050 (1.001-1.035)
== END 2020-07-05 00:17 | disposition home or self-care (01) ==
LOC: EC 21:15
DX: R10.9 Unspecified abdominal pain (principal); R11.0 Nausea; J45.909 Unspecified asthma, uncomplicated; F41.9 Anxiety disorder, unspecified; F32.9 Major depressive disorder, single episode, unspecified; Z79.890 Hormone replacement therapy; Z79.899 Other long term (current) drug therapy; Z79.51 Long term (current) use of inhaled steroids; Z88.5 Allergy status to narcotic agent; Z88.6 Allergy status to analgesic agent; Z88.8 Allergy status to other drugs, medicaments and biological substances; Z91.02 Food additives allergy status; Z98.84 Bariatric surgery status; Z90.49 Acquired absence of other specified parts of digestive tract
CPT/HCPCS: 36415; 80053; 82150; 83605; 83690; 85025; 81001; 81025; 74177; 99284; 96374; 96375 ×2; 96361 ×2; J2405; J1885; C9113; Q9967

== ENCOUNTER 2020-07-07 19:43 | Inpatient (IN) | payer OTHER ==
[2020-07-07] MEDS ORDERED: LORazepam 2 MG/ML INJ IV STA (19:57)
--- NOTE | 2020-07-07 20:03 | ED ---
General Adult HPI - General Chief complaint: Chest Pain Stated complaint: Chest Pain,SOB Time Seen by Provider: 07/07/20 19:49 Source: patient Mode of arrival: wheelchair Limitations: no limitations - History of Present Illness Initial comments: 25 year-old female patient presents to the emergency department for evaluation of chest pain and left arm pain. Patient states symptoms started 30 minutes ago. The pain is on the left side radiating down the left arm. States that her left arm feels numb. She is still able to feel her arm, but sensation is diminished. Patient states for the last year she has been having problems with palpitations. States she will have intermittent episodes where her heart feels like its fluttering and racing. 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 Patient does have MS and receives Ocrevus infusions. States she is due for her infusion. States her symptoms today are different from her MS flares. States that she has had a lot of stress in her life recently. Does have history of anxiety as well. Patient denies any recent rash, fever, chills, cough, abdominal pain, nausea, vomiting, diarrhea, constipation, back pain, numbness, tingling, dizziness, weakness, hematuria, dysuria, urinary urgency, urinary frequency, headache, visual changes, or any other complaints. - Related Data Home Medications Medication Instructions Recorded Confirmed Zonisamide 200 mg PO HS 04/06/15 07/07/20 QUEtiapine [SEROquel] 25 mg PO HS 04/29/17 07/07/20 Set[place]akin Oral Contraceptive 1 tab PO HS 09/08/18 07/07/20 Butalb/APAP/Caff 50-325-40Mg 1 tab PO TID PRN 10/05/18 07/07/20 [Fioricet 50-325-40] Ergocalciferol (Vitamin D2) 50,000 unit PO MO 10/05/18 07/07/20 [Vitamin D2] Baclofen [Lioresal] 20 mg PO TID 03/21/19 07/07/20 Galcanezumab-Gnlm [Emgality Pen] 120 mg SQ Q30D 03/21/19 07/07/20 Levothyroxine Sodium [Synthroid] 50 mcg PO DAILY 03/21/19 07/07/20 Loratadine [Claritin] 10 mg PO DAILY PRN 03/21/19 07/07/20 Meclizine HCl 25 mg PO TID PRN 03/21/19 07/07/20 cloNIDine HCL [Catapres] 0.1 mg PO HS 03/21/19 07/07/20 modafiniL [Provigil] 200 mg PO BID 03/21/19 07/07/20 ondansetron HCL [Zofran] 8 mg PO TID PRN 03/21/19 07/07/20 ARIPiprazole [Abilify] 2 mg PO HS 07/04/20 07/07/20 ARIPiprazole [Abilify] 5 mg PO HS 07/04/20 07/07/20 Carboxymethylcellulose Sodium 1 drop BOTH EYES QID PRN 07/04/20 07/07/20 [Refresh Tears] Cromolyn Sodium 1 drop BOTH EYES BID 07/04/20 07/07/20 Desvenlafaxine [Pristiq ER] 100 mg PO DAILY 07/04/20 07/07/20 Eletriptan HBr [Relpax] 40 mg PO DAILY PRN 07/04/20 07/07/20 Fluticasone Propionate [Flovent 2 puff INHALATION RT-BID 07/04/20 07/07/20 Hfa 220 mcg] Gabapentin 600 mg PO QID 07/04/20 07/07/20 HYDROcodone/APAP 10-325MG [[place] 1 tab PO TID 07/04/20 07/07/20 10-325] Ketotifen 0.025% Ophth Soln 1 drop BOTH EYES BID 07/04/20 07/07/20 [Zaditor] Montelukast Sodium [Singulair] 10 mg PO HS 07/04/20 07/07/20 Oxybutynin Chloride [Oxybutynin 10 mg PO HS 07/04/20 07/07/20 Chloride ER] Pediatric Multivitamin No.30 2 tab PO DAILY 07/04/20 07/07/20 [Multivitamin Children's Gummies] Prazosin HCl 5 mg PO HS 07/04/20 07/07/20 Pseudoephedrine 12Hr [Sudafed 12Hr] 120 mg PO Q12H PRN 07/04/20 07/07/20 Sucralfate [Carafate] 1 gm PO BID 07/04/20 07/07/20 busPIRone HCL 10 mg PO TID 07/04/20 07/07/20 Previous Rx's Medication Instructions Recorded Omeprazole 40 mg PO DAILY #90 capsule. 03/26/18 Allergies Allergy/AdvReac Type Severity Reaction Status Date / Time peanut Allergy Anaphylaxis Verified 07/07/20 23:21 aspartame AdvReac Diarrhea Verified 07/07/20 23:21 codeine AdvReac Dyspnea Verified 07/07/20 23:21 fingolimod [From [employer]] AdvReac Abdominal Verified 07/07/20 23:21 Pain ibuprofen AdvReac Abdominal Verified 07/07/20 23:21 Pain morphine AdvReac Dyspnea Verified 07/07/20 23:21 Review of Systems ROS Statement: Those systems with pertinent positive or pertinent negative responses have been documented in the HPI. ROS Other: All systems not noted in ROS Statement are negative. 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 Past Anesthesia/Blood Transfusion Reactions: No Reported Reaction Past Psychological History: Anxiety, Depression Smoking Status: Never smoker Past Alcohol Use History: None Reported Past Drug Use History: None Reported - Past Family History Mother Family Medical History: Diabetes Mellitus General Exam Limitations: no limitations General appearance: alert, in no apparent distress, other (Physical well- developed, well-nourished adult female patient in no acute distress. Vital signs upon presentation are temperature 97.9F, pulse 65, respirations 20, pressure 159/61, pulse ox 99% on room air.) Eye exam: Present: normal appearance, PERRL, EOMI. Absent: scleral icterus, conjunctival injection, periorbital swelling ENT exam: Present: normal exam, normal oropharynx, mucous membranes moist Respiratory exam: Present: normal lung sounds bilaterally. Absent: respiratory distress, wheezes, rales, rhonchi, stridor Cardiovascular Exam: Present: regular rate, normal rhythm, normal heart sounds. Absent: systolic murmur, diastolic murmur, rubs, gallop, clicks GI/Abdominal exam: Present: soft, normal bowel sounds. Absent: distended, tenderness, guarding, rebound, rigid Extremities exam: Present: normal inspection, full ROM, normal capillary refill, other (Skin to the left arm is pink, warm, dry. Cap refill less than 3 seconds. Radial pulses 2+.). Absent: tenderness, pedal edema, joint swelling, calf tenderness Neurological exam: Present: alert, oriented X3, CN II-XII intact Psychiatric exam: Present: normal affect, normal mood Skin exam: Present: warm, dry, intact, normal color. Absent: rash Course Vital Signs 07/07/20 07/07/20 07/07/20 19:46 20:29 20:34 Temperature 97.9 F Pulse Rate 65 62 Pulse Rate [ 64 Web [employer]izer ] Respiratory 20 16 Rate Blood Pressure 159/61 142/76 O2 Sat by Pulse 99 100 Oximetry 07/07/20 07/07/20 22:00 23:32 Temperature 98.1 F Pulse Rate 67 61 Pulse Rate [ Web [employer]izer ] Respiratory 18 18 Rate Blood Pressure 140/68 137/77 O2 Sat by Pulse 100 100 Oximetry EKG Findings - EKG Comments: EKG Findings:: EKG obtained in 1955 shows normal sinus rhythm with a ventricular rate of 68, IL interval 152, QRS duration 90, QT 412, QTC 438. No evidence of ST elevation or depression. Medical Decision Making - Medical Decision Making 25 year old female patient presents to the emergency department today for evaluation of left-sided chest pain and left arm pain. Physical examination did reveal clear equal lung sounds. Abdomen was soft and nontender. Labs reviewed and are unremarkable. Chest x-ray negative. Patient was seen and evaluated the emergency Department couple of days ago for abdominal pain had abdomen and pelvis CT which was normal negative lab workup as well. Dr. Garg called inquiring about her patient who had gastric bypass surgery. She would like her admitted for further evaluation and management. Patient is agreeable. Case discussed with my attending Dr. Jiménez. - Lab Data Result diagrams: 07/07/20 21:10 07/07/20 21:10 Lab Results 07/07/20 07/07/20 07/07/20 Range/Units 21:10 21:10 21:10 WBC 7.0 (3.8-10.6) k/uL RBC 4.05 (3.80-5.40) m/uL Hgb 12.2 (11.4-16.0) gm/dL Hct 37.4 (34.0-46.0) % MCV 92.5 (80.0-100.0) fL MCH 30.3 (25.0-35.0) pg MCHC 32.7 (31.0-37.0) g/dL RDW 12.2 (11.5-15.5) % Plt Count 219 (150-450) k/uL MPV 9.4 Neutrophils % 69 % Lymphocytes % 22 % Monocytes % 5 % Eosinophils % 3 % Basophils % 0 % Neutrophils # 4.8 (1.3-7.7) k/uL Lymphocytes # 1.6 (1.0-4.8) k/uL Monocytes # 0.3 (0-1.0) k/uL Eosinophils # 0.2 (0-0.7) k/uL Basophils # 0.0 (0-0.2) k/uL PT 10.0 (9.0-12.0) sec INR 0.9 (<1.2) APTT 22.1 (22.0-30.0) sec D-Dimer 0.42 (<0.60) mg/L FEU Sodium 137 (137-145) mmol/L Potassium 4.2 (3.5-5.1) mmol/L Chloride 107 (98-107) mmol/L Carbon Dioxide 24 (22-30) mmol/L Anion Gap 6 mmol/L BUN 11 (7-17) mg/dL Creatinine 0.76 (0.52-1.04) mg/dL Est GFR (CKD-EPI)AfAm >90 (>60 ml/min/1.73 sqM) Est GFR (CKD-EPI)NonAf >90 (>60 ml/min/1.73 sqM) Glucose 97 (74-99) mg/dL Calcium 9.5 (8.4-10.2) mg/dL Magnesium 2.0 (1.6-2.3) mg/dL Total Bilirubin 0.3 (0.2-1.3) mg/dL AST 21 (14-36) U/L ALT 15 (4-34) U/L Alkaline Phosphatase 74 (38-126) U/L Troponin I (0.000-0.034) ng/mL Total Protein 6.1 L (6.3-8.2) g/dL Albumin 3.9 (3.5-5.0) g/dL Lipase 135 (23-300) U/L 07/07/20 Range/Units 21:10 WBC (3.8-10.6) k/uL RBC (3.80-5.40) m/uL Hgb (11.4-16.0) gm/dL Hct (34.0-46.0) % MCV (80.0-100.0) fL MCH (25.0-35.0) pg MCHC (31.0-37.0) g/dL RDW (11.5-15.5) % Plt Count (150-450) k/uL MPV Neutrophils % % Lymphocytes % % Monocytes % % Eosinophils % % Basophils % % Neutrophils # (1.3-7.7) k/uL Lymphocytes # (1.0-4.8) k/uL Monocytes # (0-1.0) k/uL Eosinophils # (0-0.7) k/uL Basophils # (0-0.2) k/uL PT (9.0-12.0) sec INR (<1.2) APTT (22.0-30.0) sec D-Dimer (<0.60) mg/L FEU Sodium (137-145) mmol/L Potassium (3.5-5.1) mmol/L Chloride (98-107) mmol/L Carbon Dioxide (22-30) mmol/L Anion Gap mmol/L BUN (7-17) mg/dL Creatinine (0.52-1.04) mg/dL Est GFR (CKD-EPI)AfAm (>60 ml/min/1.73 sqM) Est GFR (CKD-EPI)NonAf (>60 ml/min/1.73 sqM) Glucose (74-99) mg/dL Calcium (8.4-10.2) mg/dL Magnesium (1.6-2.3) mg/dL Total Bilirubin (0.2-1.3) mg/dL AST (14-36) U/L ALT (4-34) U/L Alkaline Phosphatase (38-126) U/L Troponin I <0.012 (0.000-0.034) ng/mL Total Protein (6.3-8.2) g/dL Albumin (3.5-5.0) g/dL Lipase (23-300) U/L - Radiology Data Radiology results: report reviewed, image reviewed Two-view x-ray of the chest is obtained. Report was reviewed in its entirety. Impression by Dr. Javed shows normal chest. No change. Disposition Clinical Impression: Chest pain, Shortness of breath Disposition: ADMITTED IP TO THIS [facility] Condition: Serious Is patient prescribed a controlled substance at d/c from ED?: No Decision to Admit Reason: Admit from EC Decision Date: 07/07/20 Decision Time: 23:14
[2020-07-07 21:26] LABS: Basophils % (A) 0 %; Eosinophils # (A) 0.2 k/uL (0-0.7); Eosinophils % (A) 3 %; HCT 37.4 % (34.0-46.0); HGB 12.2 gm/dL (11.4-16.0); Lymphocytes # (A) 1.6 k/uL (1.0-4.8); Lymphocytes % (A) 22 %; MCH 30.3 pg (25.0-35.0); MCHC 32.7 g/dL (31.0-37.0); MCV 92.5 fL (80.0-100.0); Mean Platelet Volume 9.4; Monocytes # (A) 0.3 k/uL (0-1.0); Monocytes % (A) 5 %; Neutrophils # (A) 4.8 k/uL (1.3-7.7); Neutrophils % (A) 69 %; Platelet Count 219 k/uL (150-450); RBC 4.05 m/uL (3.80-5.40); RDW 12.2 % (11.5-15.5)
--- NOTE | 2020-07-07 21:28 | XR ---
EXAMINATION TYPE: XR chest 2V DATE OF EXAM: 07/07/2020 COMPARISON: 04/29/2014 HISTORY: Chest pain TECHNIQUE: FINDINGS: Heart and mediastinum are normal. Lungs are clear. Diaphragm is normal. Bony thorax appears normal. IMPRESSION: Normal chest. No change.
[2020-07-07 21:46] LABS: INR 0.9 (<1.2); Partial Thromboplastin Time 22.1 sec (22.0-30.0)
[2020-07-07 21:49] LABS: ALT 15 U/L (4-34); AST 21 U/L (14-36); African American GFR (CKD) >90 (>60 ml/min/1.73 sqM); Albumin 3.9 g/dL (3.5-5.0); Alkaline Phosphatase 74 U/L (38-126); Anion Gap 6 mmol/L; Blood Urea Nitrogen 11 mg/dL (7-17); Calcium 9.5 mg/dL (8.4-10.2); Carbon Dioxide 24 mmol/L (22-30); Chloride 107 mmol/L (98-107); Glucose 97 mg/dL (74-99); Lipase 135 U/L (23-300); Non-African American GFR(CKD) >90 (>60 ml/min/1.73 sqM); Potassium 4.2 mmol/L (3.5-5.1); Sodium 137 mmol/L (137-145); Total Bilirubin 0.3 mg/dL (0.2-1.3); Total Protein 6.1 g/dL (6.3-8.2)
[2020-07-07] MEDS ORDERED: HYDROmorphone 1 MG/ML 1 ML SYRINGE IVP STA (22:44)
[2020-07-07] MEDS ORDERED: NALOXONE 0.4 MG/ML 1 ML VIAL IV PRN (23:06)
[2020-07-07] MEDS: SODIUM CHLORIDE 0.9% 1,000 ML IV SCH (23:25)
--- NOTE | 2020-07-08 07:08 | P.GSHP ---
History of Present Illness H&P Date: 07/08/20 CHIEF COMPLAINT: Atypical chest pain with dysphagia and lower abdominal pain HISTORY OF PRESENT ILLNESS: Britt Albarran is a 25-year-old female status post gastric bypass 02/08/2018. She is over 2 years out. She presented to the ER at least twice in the last 5 days complaining of lower abdominal pain including atypical chest pain with radiation to left arm. She reports intermittent chest pain aggravated by eating. She has pre-existing history of gastric ulcers including esophageal obstruction. Separately, multiple diagnostic studies have been performed. Her symptoms continue to be moderate to severe crampy abdominal pain, progressive chest pain and arm pain. As a result of progressive symptoms including pre-existing history of gastric bypass, patient is admitted for her atypical chest pain was dysphagia with lower abdominal pain. Her highest weight was 395 pounds. Today she comes in weighing 359 pounds from 317 pounds, 9 months ago. She has gained 42 pounds in 9 months. At her height of 5 foot 7.25 inches, her ideal body weight is 158 pounds. She has lost 36 pounds lifetime. Percent excess weight loss less than 20%. Her highest body mass index was 61.5. Today her BMI is 56.4 PAST MEDICAL HISTORY: 1. Morbid obesity due to excess calories 2. Body mass index 61.5, highest. 3. Irritable bowel syndrome. 4. Obstructive sleep apnea. 5. Osteoarthritis of the hips 6. Hypertensive heart disease. 7. Gastroesophageal reflux disease 8. Anxiety. 9. Depression. 10. Migraines. 11. Overactive bladder. 12. Chronic back pain. 13. Degenerative joint disease. 14. Asthma. 15. Hypothyroidism PAST SURGICAL HISTORY: 1. Cholecystectomy 2. Eustachian tubes. 3. Upper endoscopy 4. Gastric bypass 5. Upper endoscopy HOME MEDICATIONS: 1. See list ALLERGIES: 1. See list SOCIAL HISTORY: No active tobacco use. Has limited financial resources. FAMILY HISTORY: No family history of ulcerative colitis disease or Crohn's disease. She does have a family history of morbid obesity. She denies any lupus in her family. No reports of stomach or esophageal cancer. She has a family history of diabetes. REVIEW OF ORGAN SYSTEMS: CONSTITUTIONAL: Her highest weight was 395 pounds. At her height of 5 foot 7.25 inches, her ideal body weight is 158 pounds. Her highest body mass index was 61.5. HEENT: Denies any active troubles with hearing. Has troubles with swallowing. Wears glasses. ENDOCRINE: No diabetes. Has hypothyroidism. CARDIOVASCULAR: Reports chest pain. RESPIRATORY: Has somnolence including snoring and sleep apnea. No asthma. GI: Denies any bright red blood per rectum or constipation. Has troubles swallowing. Has change in bowel habits MUSCULOSKELETAL: Has lower back pain and joint pain. Has osteoarthritis of the hips and knees. NEURO: Has headaches. No seizure disorders. Has multiple sclerosis. PSYCH: Has depression without suicidal ideation. Has anxiety. RHEUMATOLOGIC: No lupus. No rheumatoid arthritis. Has multiple sclerosis HEMATOLOGIC: Denies any abnormal bleeding or bruising. No personal history of DVTs. SKIN: Has panniculitis. No skin cancer. : Has bladder urgency. Reports irregular menses. PHYSICAL EXAM: VITAL SIGNS: Height 5 foot 7.25 inches, weight 359 pounds. BMI 56.4 GENERAL: Well-developed female in no acute distress. HEENT: No scleral icterus. Extraocular movements grossly intact. Hears conversational speech. No nasal drainage. NECK: Supple without lymphadenopathy. CHEST: Nonlabored respirations with equal bilateral excursions. CARDIOVASCULAR: Regular rate. Distal 2+ pulses. ABDOMEN: Obese, soft, nondistended. Tender left lower quadrant. MUSCULOSKELETAL: No clubbing, cyanosis. No pitting edema. Decreased strength left arm, 3+ out of 4. NEURO: No focal or lateralizing signs. Cranial nerves 2 through 12 grossly within normal limits. PSYCH: Appropriate affect. Alert and oriented to person, place and time. SKIN: Fair skin turgor. Well perfused. STUDIES: CT of the abdomen and pelvis and independently reviewed demonstrating features of diverticulosis left lower quadrant without diverticulitis. No evidence of mesenteric swirl. This is my independent interpretation. Chest x-ray also independently reviewed without bilateral pleural effusion. LABS: WBC 7.0 and hemoglobin within normal limits at 12.2. Goldman virus negative. HCG negative. Serial troponins negative. EKG: Normal sinus rhythm. ASSESSMENT: 1. Atypical chest pain with dysphagia and history of gastric ulcers with esophageal obstruction 2. Lower abdominal pain 3. Morbid obesity due to excess calories 4. Body mass index 61.5 down to 56.4 5. Irritable bowel syndrome. 6. Obstructive sleep apnea. 7. Osteoarthritis of the hips 8. Hypertensive heart disease. 9. Gastroesophageal reflux disease 10. Anxiety. 11. Depression. 12. Migraines. 13. Overactive bladder. 14. Chronic back pain. 15. Degenerative joint disease. 16. Asthma. 17. Multiple sclerosis 18. Weight gain following bariatric procedure 19. Hypothyroidism PLAN: 1. Recommend upper endoscopy with atypical chest pain including pre-existing history of gastric ulcers and esophageal obstruction. 2. Additionally, she has lower abdominal pain worsening and presence of previous abdominal surgery. 3. Assessment with neurology with pre-existing history of multiple sclerosis advised 4. 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 Past Anesthesia/Blood Transfusion Reactions: No Reported Reaction Past Psychological History: Anxiety, Depression Additional Psychological History / Comment(s): 11/24/18: Uses walker for ambulation, recent dx with Multiple Sclerosis Smoking Status: Never smoker Past Alcohol Use History: None Reported Past Drug Use History: None Reported - Past Family History Mother Family Medical History: Diabetes Mellitus Medications and Allergies Home Medications Medication Instructions Recorded Confirmed Type Zonisamide 200 mg PO HS 04/06/15 07/07/20 History QUEtiapine [SEROquel] 25 mg PO HS 04/29/17 07/07/20 History Omeprazole 40 mg PO DAILY #90 capsule. 03/26/18 07/07/20 Rx [place] Oral Contraceptive 1 tab PO HS 05/01/19 02/27/21 History Butalb/APAP/Caff 50-325-40Mg 1 tab PO TID PRN 10/05/18 07/07/20 History [Fioricet 50-325-40] Ergocalciferol (Vitamin D2) 50,000 unit PO MO 10/05/18 07/07/20 History [Vitamin D2] Baclofen [Lioresal] 20 mg PO TID 03/21/19 07/07/20 History Galcanezumab-Gnlm [Emgality Pen] 120 mg SQ Q30D 03/21/19 07/07/20 History Levothyroxine Sodium [Synthroid] 50 mcg PO DAILY 03/21/19 07/07/20 History Loratadine [Claritin] 10 mg PO DAILY PRN 03/21/19 07/07/20 History Meclizine HCl 25 mg PO TID PRN 03/21/19 07/07/20 History cloNIDine HCL [Catapres] 0.1 mg PO HS 03/21/19 07/07/20 History modafiniL [Provigil] 200 mg PO BID 03/21/19 07/07/20 History ondansetron HCL [Zofran] 8 mg PO TID PRN 03/21/19 07/07/20 History ARIPiprazole [Abilify] 2 mg PO HS 07/04/20 07/07/20 History ARIPiprazole [Abilify] 5 mg PO HS 07/04/20 07/07/20 History Carboxymethylcellulose Sodium 1 drop BOTH EYES QID PRN 07/04/20 07/07/20 History [Refresh Tears] Cromolyn Sodium 1 drop BOTH EYES BID 07/04/20 07/07/20 History Desvenlafaxine [Pristiq ER] 100 mg PO DAILY 07/04/20 07/07/20 History Eletriptan HBr [Relpax] 40 mg PO DAILY PRN 07/04/20 07/07/20 History Fluticasone Propionate [Flovent 2 puff INHALATION RT-BID 07/04/20 07/07/20 History Hfa 220 mcg] Gabapentin 600 mg PO QID 07/04/20 07/07/20 History HYDROcodone/APAP 10-325MG [[place] 1 tab PO TID 07/04/20 07/07/20 History 10-325] Ketotifen 0.025% Ophth Soln 1 drop BOTH EYES BID 07/04/20 07/07/20 History [Zaditor] Montelukast Sodium [Singulair] 10 mg PO HS 07/04/20 07/07/20 History Oxybutynin Chloride [Oxybutynin 10 mg PO HS 07/04/20 07/07/20 History Chloride ER] Pediatric Multivitamin No.30 2 tab PO DAILY 07/04/20 07/07/20 History [Multivitamin Children's Gummies] Prazosin HCl 5 mg PO HS 07/04/20 07/07/20 History Pseudoephedrine 12Hr [Sudafed 12Hr] 120 mg PO Q12H PRN 07/04/20 07/07/20 History Sucralfate [Carafate] 1 gm PO BID 07/04/20 07/07/20 History busPIRone HCL 10 mg PO TID 07/04/20 07/07/20 History Allergies Allergy/AdvReac Type Severity Reaction Status Date / Time peanut Allergy Anaphylaxis Verified 07/07/20 23:21 aspartame AdvReac Diarrhea Verified 07/07/20 23:21 codeine AdvReac Dyspnea Verified 07/07/20 23:21 fingolimod [From Qbaka] AdvReac Abdominal Verified 07/07/20 23:21 Pain ibuprofen AdvReac Abdominal Verified 07/07/20 23:21 Pain morphine AdvReac Dyspnea Verified 07/07/20 23:21 Surgical - Exam Vital Signs Temp Pulse Resp BP Pulse Ox 97.9 F 65 20 159/61 99 07/07/20 19:46 07/07/20 19:46 07/07/20 19:46 07/07/20 19:46 07/07/20 19:46 Results - Labs 07/07/20 21:10 07/07/20 21:10 Abnormal Lab Results - Last 24 Hours (Table) 07/07/20 Range/Units 21:10 Total Protein 6.1 L (6.3-8.2) g/dL Diabetes panel 07/07/20 Range/Units 21:10 Sodium 137 (137-145) mmol/L Potassium 4.2 (3.5-5.1) mmol/L Chloride 107 (98-107) mmol/L Carbon Dioxide 24 (22-30) mmol/L BUN 11 (7-17) mg/dL Creatinine 0.76 (0.52-1.04) mg/dL Glucose 97 (74-99) mg/dL Calcium 9.5 (8.4-10.2) mg/dL AST 21 (14-36) U/L ALT 15 (4-34) U/L Alkaline Phosphatase 74 (38-126) U/L Total Protein 6.1 L (6.3-8.2) g/dL Albumin 3.9 (3.5-5.0) g/dL Calcium panel 07/07/20 Range/Units 21:10 Calcium 9.5 (8.4-10.2) mg/dL Albumin 3.9 (3.5-5.0) g/dL Pituitary panel 07/07/20 Range/Units 21:10 Sodium 137 (137-145) mmol/L Potassium 4.2 (3.5-5.1) mmol/L Chloride 107 (98-107) mmol/L Carbon Dioxide 24 (22-30) mmol/L BUN 11 (7-17) mg/dL Creatinine 0.76 (0.52-1.04) mg/dL Glucose 97 (74-99) mg/dL Calcium 9.5 (8.4-10.2) mg/dL Adrenal panel 07/07/20 Range/Units 21:10 Sodium 137 (137-145) mmol/L Potassium 4.2 (3.5-5.1) mmol/L Chloride 107 (98-107) mmol/L Carbon Dioxide 24 (22-30) mmol/L BUN 11 (7-17) mg/dL Creatinine 0.76 (0.52-1.04) mg/dL Glucose 97 (74-99) mg/dL Calcium 9.5 (8.4-10.2) mg/dL Total Bilirubin 0.3 (0.2-1.3) mg/dL AST 21 (14-36) U/L ALT 15 (4-34) U/L Alkaline Phosphatase 74 (38-126) U/L Total Protein 6.1 L (6.3-8.2) g/dL Albumin 3.9 (3.5-5.0) g/dL Assessment and Plan (1) Atypical chest pain Current Visit: Yes Status: Acute Code(s): R07.89 - OTHER CHEST PAIN SNOMED Code(s): 005686494 (2) Lower abdominal pain Current Visit: Yes Status: Acute Code(s): R10.30 - LOWER ABDOMINAL PAIN, UNSPECIFIED SNOMED Code(s): 87206339 (3) Dysphagia Current Visit: Yes Status: Acute Code(s): R13.10 - DYSPHAGIA, UNSPECIFIED SNOMED Code(s): 82066091
[2020-07-08] MEDS: HYDROmorphone 1 MG/ML 1 ML SYRINGE IVP PRN ×2 (07:33→13:37)
[2020-07-08] MEDS ORDERED: IV FLUID CONTINUATION 400 ML IV ONE (09:30)
[2020-07-08] MEDS ORDERED: LIDOCAINE 1% INJ 10MG/ML (20 ML MDV) ONE (09:38)
[2020-07-08] MEDS ORDERED: PROPOFOL 10 MG/ML 20 ML VIAL IV ONE (09:38)
[2020-07-08] MEDS ORDERED: SUMAtriptan succinate 50 MG TAB PO PRN (10:19)
[2020-07-08] MEDS ORDERED: ARTIFICIAL TEARS-HYPROMELLOSE DROPS 15 ML BTL BOTH EYES PRN (10:19)
[2020-07-08] MEDS ORDERED: PSEUDOEPHEDRINE 12HR 120 MG TABLET.ER PO PRN (10:19)
[2020-07-08] MEDS ORDERED: ONDANSETRON 4 MG TAB PO PRN (10:19)
[2020-07-08] MEDS ORDERED: LORATADINE 10 MG TAB PO PRN (10:19)
--- NOTE | 2020-07-08 10:27 | P.PCN ---
Date of Procedure: 07/08/20 Description of Procedure: PREOPERATIVE DIAGNOSIS: Dysphagia. Atypical chest pain History of gastrojejunal ulcers with esophageal obstruction Abdominal pain Morbid obesity due to excess calories, BMI 56.4 POSTOPERATIVE DIAGNOSIS: Dysphagia. Atypical chest pain History of gastrojejunal ulcers Abdominal pain Morbid obesity due to excess calories, BMI 56.4 Gastrojejunal stricture without chronic ulcer without perforation OPERATION: Esophagogastrojejunoscopy with balloon dilatation from 12 to 20 mm. SURGEON: Evie Garg MD ANESTHESIA: MAC. INDICATIONS: The patient is a 25-year-old female who presented with atypical chest pain, dysphagia and history of gastric ulcers and esophageal obstruction. Benefits and risks of the procedure were described. Informed consent was obtained. DESCRIPTION: The patient was brought into the endoscopy suite and laid in the left lateral decubitus position. After a timeout was confirmed, the procedure was initiated. An Olympus gastroscope was passed along the posterior oropharynx down to the distal esophagus where the squamocolumnar junction was unremarkable. The gastric pouch was entered. A gastrojejunal stricture of 12 mm was found as the adult gastroscope was 9.5 mm in size. A [employer] balloon dilator was placed through the scope. Final insufflation up to 20 mm was performed with a total of 2 minutes. The scope was advanced up to 60 cm from the incisors into the Cecil limb. The mucosa of the gastrojejunal anastomosis was intact. No chronic gastrojejunal marginal ulcer was encountered. No full-thickness injury was encountered. The GI tract was desufflated. The patient tolerated the procedure well. FINDINGS: Squamocolumnar junction unremarkable at 37 cm. Stricture of approximately 12 mm encountered. No chronic gastrojejunal ulceration encountered. Successful balloon dilatation to 20 mm. Gastric pouch 5 cm. Diaphragmatic hiatal hernia, 2 cm RECOMMENDATIONS: Upper endoscopy as needed Advance to full liquid diet
[2020-07-08] MEDS: BUTALB/APAP/CAFF 50-325-40MG TAB PO PRN (10:55)
[2020-07-08] MEDS: SODIUM CHLORIDE 0.9% 1,000 ML IV SCH (13:36)
[2020-07-08] MEDS: DESVENLAFAXINE SUCCINATE 50 MG TAB.ER.24H PO SCH (13:36)
[2020-07-08] MEDS: GABAPENTIN 300 MG CAP PO SCH ×3 (13:36→22:50)
[2020-07-08] MEDS: ONDANSETRON 4 MG/2 ML VIAL IVP PRN ×2 (13:53→22:50)
--- NOTE | 2020-07-08 14:38 | P.PN ---
Progress Note - Text Progress Note Date: 07/08/20 She reports moderate to severe pain excarbated with movement with history of abdominal surgeries. Clinical history consistent with peritoneal adhesions and abdominal pain. Will proceed with robotic lysis of adhesions. She still reports neurological symptoms of left arm pain. Will consult neurology for history of multiple sclerosis
[2020-07-08] MEDS: HYDROcodone/APAP 10-325MG 1 EACH TAB PO SCH ×2 (17:08→22:50)
[2020-07-08] MEDS: BACLOFEN 10 MG TAB PO SCH ×2 (17:09→22:49)
[2020-07-08] MEDS: busPIRone HCl 10 MG TAB PO SCH ×2 (17:09→22:50)
[2020-07-08] MEDS: FLUTICASONE 220 MCG INHALER INHALATION SCH (20:08)
[2020-07-08] MEDS: KETOTIFEN 0.025% OPHTH DROPS 5 ML BTL BOTH EYES SCH (21:23)
[2020-07-08] MEDS: cloNIDine HCL 0.1 MG TAB PO SCH (21:24)
[2020-07-08] MEDS: PRAZOSIN 1 MG CAP PO SCH (21:24)
[2020-07-08] MEDS: OXYBUTYNIN 10 MG TAB.ER.24 PO SCH (21:24)
[2020-07-08] MEDS: ARIPiprazole 2 MG TAB PO SCH (21:24)
[2020-07-08] MEDS: ARIPiprazole 5 MG TAB PO SCH (21:24)
[2020-07-08] MEDS: ZONISAMIDE 100 MG CAP PO SCH (21:24)
[2020-07-08] MEDS: SUCRALFATE 1 GM TAB PO SCH (21:24)
[2020-07-08] MEDS: CROMOLYN SODIUM BOTH EYES SCH (21:29)
[2020-07-08] MEDS: [UNRECOGNIZED DRUG - OTHER] PO SCH (21:29)
[2020-07-08] MEDS: MONTELUKAST 10 MG TAB PO SCH (22:49)
[2020-07-08] MEDS: QUEtiapine 25 MG TAB PO SCH (22:49)
[2020-07-09] MEDS: SODIUM CHLORIDE 0.9% 1,000 ML IV SCH ×2 (02:14→18:49)
[2020-07-09] MEDS: LEVOTHYROXINE 25 MCG TAB PO SCH (06:18)
[2020-07-09] MEDS ORDERED: ceFAZolin 3 GM in SODIUM CHLORIDE 0.9% 100 ML IVPB PRN (07:00)
[2020-07-09] MEDS: BACLOFEN 10 MG TAB PO SCH ×3 (08:43→21:50)
[2020-07-09] MEDS: PANTOPRAZOLE 40 MG TABLET PO SCH (08:43)
[2020-07-09] MEDS: busPIRone HCl 10 MG TAB PO SCH ×3 (08:43→21:50)
[2020-07-09] MEDS: DESVENLAFAXINE SUCCINATE 50 MG TAB.ER.24H PO SCH (08:44)
[2020-07-09] MEDS: CROMOLYN SODIUM BOTH EYES SCH ×2 (08:44→21:54)
[2020-07-09] MEDS: HYDROcodone/APAP 10-325MG 1 EACH TAB PO SCH ×3 (08:45→21:50)
[2020-07-09] MEDS: GABAPENTIN 300 MG CAP PO SCH ×4 (08:45→21:54)
[2020-07-09] MEDS: MULTIVITAMINS, THERA 1 EACH TAB PO SCH (08:48)
[2020-07-09] MEDS: SUCRALFATE 1 GM TAB PO SCH ×2 (08:48→21:50)
[2020-07-09] MEDS: KETOTIFEN 0.025% OPHTH DROPS 5 ML BTL BOTH EYES SCH ×2 (08:57→21:49)
[2020-07-09] MEDS: FLUTICASONE 220 MCG INHALER INHALATION SCH ×2 (09:08→20:52)
[2020-07-09] MEDS: BUTALB/APAP/CAFF 50-325-40MG TAB PO PRN ×2 (09:27→21:51)
[2020-07-09] MEDS: ONDANSETRON 4 MG/2 ML VIAL IVP PRN (09:29)
--- NOTE | 2020-07-09 12:01 | P.CNNES ---
History of Present Illness Consult date: 07/09/20 Requesting physician: Evie Garg Reason for Consult: left arm weakness and pain concern for acute ms excacerbation History of Present Illness: This is a 25-year-old woman with history of multiple sclerosis, migraine that presented to the emergency department on 07/07/2020 for chest pain and left arm pain. Patient stated that the she's been having abdominal pain for the last for 5 days and she came to the emergency department and she was discharged the same day at. Then that since this past Thursday she's been having left-sided chest pain that is radiating to the left arm all the way down to her fingertips with numbness in her hands mostly in the the third fourth and fifth digits and she felt her left side is a week as well. Patient states that her symptoms are different for her MS flareup. Regarding her multiple sclerosis she receives Ocrevus infusion and is due for an infusion and her last infusion was 6 months ago. She denies of any new visual disturbance, denies of any neck pain, denies of any difficulty getting her words out or difficulty swallowing. She follows-up with Dr. Delgado for her neurological problems and she said she had MRI the brain/brainstem about 2 month ago and that she was told there was no new enhanced lesion. But had that MRI of the brain and entire cervical thoracic and lumbar MRI between 6 months to a year ago. She said her last flareup was between 6 months to one year ago. Dr. Garg notes states that she has moderate to severe pain exacerbated with movement with history of abdominal surgeries. Conchal history consistent with the peritoneal adhesions and abdominal pain and they will proceed with robotic lysis of adhesion. She said regarding her multiple sclerosis about 2 years ago she had that difficulty walking and had visual disturbance and was evaluated at [facility] their they did imaging of the brain as well as her back including cervical as well as she had a lumbar puncture. She said the lumbar puncture was normal. The imaging MRI the brain as well as cervical etc. she said that didn't know what was her final diagnoses and was discharged to rehab after that that. She said that she's been followed up with Dr. Campos and he was the one that diagnosed her with multiple sclerosis as stating that she had multiple lesions. In the past she was on Gilenya and Copaxone (she thinks) but did not help. Currently she is on Oclevirus and feels it is helping. She has been using a wheeled walker for the last 2 years since her gait is unsteady but stated to her lesions and MRI had been improving since she's been on Ocrevius. Patient is on home baclofen 20 mg 1 tablet 3 times a day, Imitrex 100 mg 1 tablet daily when necessary, Zonegran 200 mg daily at bedtime, gabapentin 600 mg 1 tablet 3 times a day, vitamin D 2250 mg, Provigil 200 mg twice a day Patient is also on Abilify, Seroquel, BuSpar, Rousseau 10, Dilaudid Of note the patient had MRI the brain last night facility was June 2016 and it's reported as unremarkable pre-and post contrast enhanced MRI of the brain. Workup in the hospital consisted of: Chest x-rays reported as normal chest. No change. EKG is reported as normal sinus rhythm. Normal EKG. White blood cells 7.0 which is normal. Review of Systems Review of system: The 12 point system was reviewed and apparent positive and negative per HPI. 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 Past Anesthesia/Blood Transfusion Reactions: No Reported Reaction Past Psychological History: Anxiety, Depression Additional Psychological History / Comment(s): 11/24/18: Uses walker for ambulation, recent dx with Multiple Sclerosis Smoking Status: Never smoker Past Alcohol Use History: None Reported Past Drug Use History: None Reported - Past Family History Mother Family Medical History: Diabetes Mellitus Medications and Allergies Home Medications Medication Instructions Recorded Confirmed Type Zonisamide 200 mg PO HS 04/06/15 07/07/20 History QUEtiapine [SEROquel] 25 mg PO HS 04/29/17 07/07/20 History Omeprazole 40 mg PO DAILY #90 capsule. 03/26/18 07/07/20 Rx Setlakin Oral Contraceptive 1 tab PO HS 09/08/18 07/07/20 History Butalb/APAP/Caff 50-325-40Mg 1 tab PO TID PRN 10/05/18 07/07/20 History [Fioricet 50-325-40] Ergocalciferol (Vitamin D2) 50,000 unit PO MO 10/05/18 07/07/20 History [Vitamin D2] Baclofen [Lioresal] 20 mg PO TID 03/21/19 07/07/20 History Galcanezumab-Gnlm [Emgality Pen] 120 mg SQ Q30D 03/21/19 07/07/20 History Levothyroxine Sodium [Synthroid] 50 mcg PO DAILY 03/21/19 07/07/20 History Loratadine [Claritin] 10 mg PO DAILY PRN 03/21/19 07/07/20 History Meclizine HCl 25 mg PO TID PRN 03/21/19 07/07/20 History cloNIDine HCL [Catapres] 0.1 mg PO HS 03/21/19 07/07/20 History modafiniL [Provigil] 200 mg PO BID 03/21/19 07/07/20 History ondansetron HCL [Zofran] 8 mg PO TID PRN 03/21/19 07/07/20 History ARIPiprazole [Abilify] 2 mg PO HS 07/04/20 07/07/20 History ARIPiprazole [Abilify] 5 mg PO HS 07/04/20 07/07/20 History Carboxymethylcellulose Sodium 1 drop BOTH EYES QID PRN 07/04/20 07/07/20 History [Refresh Tears] Cromolyn Sodium 1 drop BOTH EYES BID 07/04/20 07/07/20 History Desvenlafaxine [Pristiq ER] 100 mg PO DAILY 07/04/20 07/07/20 History Eletriptan HBr [Relpax] 40 mg PO DAILY PRN 07/04/20 07/07/20 History Fluticasone Propionate [Flovent 2 puff INHALATION RT-BID 07/04/20 07/07/20 History Hfa 220 mcg] Gabapentin 600 mg PO QID 07/04/20 07/07/20 History HYDROcodone/APAP 10-325MG [Rousseau 1 tab PO TID 07/04/20 07/07/20 History 10-325] Ketotifen 0.025% Ophth Soln 1 drop BOTH EYES BID 07/04/20 07/07/20 History [Zaditor] Montelukast Sodium [Singulair] 10 mg PO HS 07/04/20 07/07/20 History Oxybutynin Chloride [Oxybutynin 10 mg PO HS 07/04/20 07/07/20 History Chloride ER] Pediatric Multivitamin No.30 2 tab PO DAILY 07/04/20 07/07/20 History [Multivitamin Children's Gummies] Prazosin HCl 5 mg PO HS 07/04/20 07/07/20 History Pseudoephedrine 12Hr [Sudafed 12Hr] 120 mg PO Q12H PRN 07/04/20 07/07/20 History Sucralfate [Carafate] 1 gm PO BID 07/04/20 07/07/20 History busPIRone HCL 10 mg PO TID 07/04/20 07/07/20 History Allergies Allergy/AdvReac Type Severity Reaction Status Date / Time peanut Allergy Anaphylaxis Verified 07/07/20 23:21 aspartame AdvReac Diarrhea Verified 07/07/20 23:21 codeine AdvReac Dyspnea Verified 07/07/20 23:21 fingolimod [From Voltari] AdvReac Abdominal Verified 07/07/20 23:21 Pain ibuprofen AdvReac Abdominal Verified 07/07/20 23:21 Pain morphine AdvReac Dyspnea Verified 07/07/20 23:21 Physical Examination - Vital Signs Vital Signs: Vital Signs Temp Pulse Pulse Resp BP Pulse Ox 07/09/20 09:08 96 07/09/20 06:53 98.1 F 69 18 111/66 96 07/09/20 01:39 97.9 F 63 17 110/67 97 07/08/20 20:00 98.2 F 66 16 102/66 98 07/08/20 14:43 98.2 F 64 18 118/77 97 07/08/20 14:00 64 18 Intake and Output 07/08/20 07/09/20 07/09/20 22:59 06:59 14:59 Other: # Voids 1 1 GENERAL: The patient is morbid obese lying in bed and is not in acute distress. CHEST: The heart rate is regular rate rhythm. No murmurs to auscultation. LUNG: Clear to auscultation bilaterally no wheezing noted throughout. Not labored breathing. ABDOMEN/GI: Bowel sounds present in all 4 quadrants. No tenderness to palpation throughout. NEUROLOGICAL: Higher mental function: The patient is awake, alert, oriented to self, place and time. Patient is following commands. No aphasia and no neglect. Cranial nerves: The pupils are round, equal and reactive to light and accommodation. Visual moncada are full to confrontation throughout. Extraocular movement is intact but there is mild horizontal nystagmus looking to the right out of both eyes. Facial sensation is decrease over the left entire face (old). The facial strength is normal throughout. Hearing is normal bilaterally to hand rub. Tongue is midline and moved [id number] without any difficulty. No dysarthria is noted. Shoulder shrug is normal bilaterally. Motor: Gait is deferred. The strength is 5 over 5 in bilateral upper extremities while lower is 5- throughout. Normal tone and bulk. Cerebellum: Normal finger to nose heel to chin bilaterally. Sensation: Sensation is decreased to touch over entire left upper and lower extremity (old). Reflexes (right/left): Biceps 2+; triceps 3+ bilaterally-; brachioradialis 3+ bilaterally; and lowers are 2+ bilaterally. Plantars are downgoing bilaterally. Results Sodium is 137. TSH is 1.610 which is normal. AST of 21 and the ALT of 15 which is normal. Goldman virus PCR is nondetected. - Laboratory Findings CBC and BMP: 07/07/20 21:10 07/07/20 21:10 Abnormal Lab Findings: Abnormal Labs 07/07/20 21:10 Total Protein 6.1 L Assessment and Plan Assessment: This is a 25-year-old woman with history of multiple sclerosis that has left chest pain rating down to left arm with numbness as well as weakness. 1. Chest pain with numbness and subjective weakness over the left upper extremity. Cannot conclusively exclude MS exacerbation, seems atypical. 2. History of multiple sclerosis for the last 2 years and is On Ocrevus infusion 3. History of paresthesia over the left side due to #2. 4. Peritoneal adhesion and abdominal pain 5. Morbid obesity 6. History of depression 7. Polypharmacy Plan: Patient opted out of getting repeated MRI of the brain or any imaging of cervical thoracic to see if there is any new lesions. She also does not want any IV steroids at this time. She wants to hold off on any further neurological work-up at this time. Patient to follow-up with her neurologist (Dr. Delgado) within 1-2 weeks she stated that she is due for her infusion medication for multiple sclerosis (Ocre vus). Regarding the patient polypharmacy the patient does not want psychiatry to be consulted at this time and she said that she is following up with psychiatry as an outpatient in her medication is slowly being weaned off. I feel like the patient is on so many medication and this needs to be modified. The plan was discussed with the patient as well as her nurse. No further workup is needed as stated above. Thank you for the consultation. Lamberto Anguiano MD Neuro-Hospitalist Time with Patient: Greater than 30
[2020-07-09] MEDS ORDERED: PROPOFOL 10 MG/ML 20 ML VIAL IV ONE (14:16)
[2020-07-09] MEDS ORDERED: SUCCINYLCHOLINE CHLORIDE VIAL 200 MG/10 ML VIAL IV ONE (14:16)
[2020-07-09] MEDS ORDERED: HYDROmorphone (PF) 1 MG/ML ONE (14:16)
[2020-07-09] MEDS ORDERED: MIDAZOLAM 2 MG/2 ML VIAL ONE (14:16)
[2020-07-09] MEDS ORDERED: ROCURONIUM 10 MG/ML (5 ML VIAL) IV ONE (14:16)
[2020-07-09] MEDS ORDERED: fentaNYL (PF) 50 MCG/ML 2 ML AMP ONE (14:16)
[2020-07-09] MEDS ORDERED: LIDOCAINE 1% INJ 10MG/ML (20 ML MDV) ONE (14:16)
[2020-07-09] MEDS ORDERED: GLYCOPYRROLATE 0.2 MG/ML 2 ML VIAL ONE (14:16)
[2020-07-09] MEDS ORDERED: NEOSTIGMINE 1 MG/ML 10 ML VIAL ONE (14:16)
--- NOTE | 2020-07-09 14:21 | P.PN ---
Subjective Progress Note Date: 07/09/20 CHIEF COMPLAINT: Abdominal pain HISTORY OF PRESENT ILLNESS: Britt Albarran is a 25-year-old female status post gastric bypass who reports worsening left lower quadrant abdominal pain. She also presented with history of dysphagia. Overall she reports clinical improvement of swallowing. She reports no further atypical chest pain. She does report improvement of left arm pain. She had been seen by neurology. She reports persistent left lower quadrant abdominal pain now worsening in character. REVIEW OF ORGAN SYSTEMS: No fevers or chills. No dyspnea on exertion. Reports improved atypical chest pain. PHYSICAL EXAM: VITAL SIGNS: Height 5 foot 7.25 inches, weight 359 pounds. BMI 56.4 GENERAL: Well-developed female in no acute distress. HEENT: No scleral icterus. Extraocular movements grossly intact. Hears conversational speech. No nasal drainage. NECK: Supple without lymphadenopathy. CHEST: Nonlabored respirations with equal bilateral excursions. CARDIOVASCULAR: Regular rate. Distal 2+ pulses. ABDOMEN: Tender left lower quadrant. Obese. MUSCULOSKELETAL: No clubbing, cyanosis. No pitting edema. NEURO: No focal or lateralizing signs. Cranial nerves 2 through 12 grossly w ithin normal limits. PSYCH: Appropriate affect. Alert and oriented to person, place and time. SKIN: Good skin turgor. Well perfused. ASSESSMENT: 1. Atypical chest pain with dysphagia and history of gastric ulcers with esophageal obstruction 2. Lower abdominal pain 3. Morbid obesity due to excess calories 4. Body mass index 61.5 down to 56.4 5. Irritable bowel syndrome. 6. Obstructive sleep apnea. 7. Osteoarthritis of the hips 8. Hypertensive heart disease. 9. Gastroesophageal reflux disease 10. Anxiety. 11. Depression. 12. Migraines. 13. Overactive bladder. 14. Chronic back pain. 15. Degenerative joint disease. 16. Asthma. 17. Multiple sclerosis 18. Weight gain following bariatric procedure 19. Hypothyroidism 20. Peritoneal adhesions PLAN: 1. With her history of multiple abdominal surgeries including peritoneal lesions, we'll proceed with diagnostic laparoscopy lysis adhesions. 2. She is elevated risk for complications with chronic pain syndrome, multiple sclerosis, and morbid obesity. 3. Benefits and risks are reviewed. Objective - Vital Signs Vital signs: Vital Signs Temp 97.1 F L 07/09/20 13:00 Pulse 60 07/09/20 13:18 Resp 18 07/09/20 13:00 BP 125/70 07/09/20 13:00 Pulse Ox 98 07/09/20 13:00 Intake & Output 07/08/20 07/09/20 07/09/20 18:59 06:59 18:59 Intake Total 780 50 Balance 780 50 Intake: IV 300 50 Oral 480 Other: # Voids 3 1 1 - Labs CBC & Chem 7: 07/07/20 21:10 07/07/20 21:10 Assessment and Plan (1) Atypical chest pain Status: Acute Code(s): R07.89 - OTHER CHEST PAIN SNOMED Code(s): 741885318 (2) Lower abdominal pain Status: Acute Code(s): R10.30 - LOWER ABDOMINAL PAIN, UNSPECIFIED SNOMED Code(s): 62164711 (3) Dysphagia Status: Acute Code(s): R13.10 - DYSPHAGIA, UNSPECIFIED SNOMED Code(s): 70456553 (4) Chronic pain syndrome Status: Acute Code(s): G89.4 - CHRONIC PAIN SYNDROME SNOMED Code(s): 752005423 (5) Gastric bypass status for obesity Status: Acute Code(s): Z98.84 - BARIATRIC SURGERY STATUS SNOMED Code(s): 072132121 (6) Left lower quadrant abdominal pain Status: Acute Code(s): R10.32 - LEFT LOWER QUADRANT PAIN SNOMED Code(s): 472658672 (7) Peritoneal adhesions Status: Acute Code(s): K66.0 - PERITONEAL ADHESIONS (POSTPROCEDURAL) (POSTINFECTION) SNOMED Code(s): 88404809
[2020-07-09] MEDS ORDERED: LACTATED RINGERS 1,000 ML IV ONE (14:30)
[2020-07-09] MEDS ORDERED: LIDOCAINE 1%/EPI 1:200,000 MPF 10 ML VIAL SQ ONE (14:45)
[2020-07-09] MEDS ORDERED: HYDROmorphone 0.5 MG/0.5 ML SYRINGE IVP ONE ×2 (16:18→16:23)
[2020-07-09] MEDS ORDERED: SODIUM CHLORIDE 0.9% 1,000 ML IV ONE ×2 (16:24)
[2020-07-09] MEDS ORDERED: ACETAMINOPHEN IV (For NPO) 1,000 MG in EMPTY BAG 1 BAG IVPB ONE (16:38)
--- NOTE | 2020-07-09 17:38 | P.OP ---
Date of Procedure: 07/09/20 Description of Procedure: SURGEON: TEZ SOLIS MD PREOPERATIVE DIAGNOSES: 1. Left upper/lower quadrant abdominal pain 2. Intra-abdominal peritoneal adhesions 3. Morbid obesity due to excess calories, BMI 56.4. 4. History of gastric bypass 5. Multiple sclerosis 6. Gastrojejunal stricture 7. Atypical chest pain 8. Chronic pain syndrome POSTOPERATIVE DIAGNOSES: 1. 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 Intra-abdominal peritoneal adhesions 3. Morbid obesity due to excess calories, BMI 56.4. 4. History of gastric bypass 5. Multiple sclerosis 6. Gastrojejunal stricture 7. Atypical chest pain 8. Chronic pain syndrome OPERATION: 1. Robotic-assisted da Olga Xi laparoscopic with extensive lysis of adhesions over 1 hr 2. Takedown and repair of enteroenteric enteric fistula, jejunum ESTIMATED BLOOD LOSS: 5 mL. SPECIMENS REMOVED: None. COMPLICATIONS: None. OPERATIVE FINDINGS: 1. Omentum to abdominal wall adhesion left lower quadrant consistent with location of patient's pain 2. Abnormal enteroenteric enteric fistula of jejunojejunostomy to kimberly limb divided and repair also at the left upper/lower quadrant 3. No internal hernia of the Garcia's defect and jejunojejunostomy mesenteric defect INDICATIONS: The patient is a 25-year-old female who presents with worsening left upper and lower quadrant abdominal pain with cramping. She has history of abdominal procedures including gastric bypass with risk of adhesions. Surgical intervention with diagnostic laparoscopy, lysis of adhesions were described. Informed consent was obtained. Robotic assisted laparoscopic approach was described. Benefits and risks of the procedure including but not limited to bleeding, infection, injury to the small bowel was described. Informed consent was obtained. DESCRIPTION OF PROCEDURE: Patient was brought to the operating room, placed in supine position. After general induction, the abdomen had been prepped and draped in standard sterile fashion. The robotic da Olga XI system was primed. After a timeout protocol was performed, the patient had been prepped and draped in standard sterile fashion. The robot was docked along the right lateral abdomen. The patient was repositioned in with right side up. Please note prior to docking of the robot; however, a 5 mm 0 degrees laparoscopic trocar entry was performed along the left upper quadrant. The abdomen was insufflated to 15 mmHg pressure which she tolerated well. Diagnostic laparoscopy was performed. Next, three 8 mm robotic ports were placed along the right lateral abdominal wall. The camera 8-mm port was maintained along mid-lateral abdomen. Please note that the ports were placed at least 10 to 15 cm away from the target anatomy. Instruments including graspers and vessel sealer were interchanged by the academic support assistant. I had sat at the console. Omentum to abdominal wall was identified at the patient's location of pain left upper/left lower quadrant of abdomen. Adhesion was sharply lysed using vessel sealer and cauterized. Next, the small bowel was investigated from the terminal ileum to the jejunojejunostomy and gastrojejunal anastomosis. Enteroenteric enteric fistula 5-mm between the jejunojejunostomy and kimberly limb was identified and divided. The fistula was repaired and oversewn using 3-0 Vicryl. The small bowel was investigated where no incarceration of small bowel was found along the Garcia's defect or jejunojejunostomy mesenteric defect. No small bowel volvulus was identified. The sigmoid colon was redundant. The small bowel was viable.The robot was undocked. All pneumoperitoneum instruments were evacuated from the abdominal cavity. The incisions were reapproximated using 4-0 Monocryl in an interrupted subcuticular fashion. Please note along the trocar sites, local anesthetic was placed as a field block prior to insertion of all instruments. Exofin was applied to the skin. At the end of the procedure needle, sponge, and instrument count had been verified correct by the surgical scrub tech. The patient was transferred to postanesthesia care unit in stable condition.
[2020-07-09] MEDS: MECLIZINE 25 MG TAB PO PRN (17:40)
--- NOTE | 2020-07-09 18:19 | P.PN ---
Progress Note - Text Progress Note Date: 07/09/20 Patient seen and reevaluated. Persistent worsening left lower quadrant and left upper quadrant abdominal pain is now resolved following surgery. She is now tolerating diet. Intra-abdominal films including adhesions and enteric enteric fistula reviewed. Questions answered.
[2020-07-09] MEDS: cloNIDine HCL 0.1 MG TAB PO SCH (21:49)
[2020-07-09] MEDS: ARIPiprazole 5 MG TAB PO SCH (21:49)
[2020-07-09] MEDS: ARIPiprazole 2 MG TAB PO SCH (21:49)
[2020-07-09] MEDS: PRAZOSIN 1 MG CAP PO SCH (21:50)
[2020-07-09] MEDS: MONTELUKAST 10 MG TAB PO SCH (21:50)
[2020-07-09] MEDS: OXYBUTYNIN 10 MG TAB.ER.24 PO SCH (21:50)
[2020-07-09] MEDS: QUEtiapine 25 MG TAB PO SCH (21:50)
[2020-07-09] MEDS: ZONISAMIDE 100 MG CAP PO SCH (21:50)
[2020-07-09] MEDS: [UNRECOGNIZED DRUG - OTHER] PO SCH (21:54)
[2020-07-10] MEDS: HYDROmorphone 1 MG/ML 1 ML SYRINGE IVP PRN (03:07)
[2020-07-10] MEDS: SODIUM CHLORIDE 0.9% 1,000 ML IV SCH (04:51)
[2020-07-10] MEDS: LEVOTHYROXINE 25 MCG TAB PO SCH (06:05)
[2020-07-10 07:47] VITALS: BP 117/63; PULSE 68; RESP 18; TEMP 98.5
[2020-07-10] MEDS: PANTOPRAZOLE 40 MG TABLET PO SCH (07:58)
[2020-07-10] MEDS: BUTALB/APAP/CAFF 50-325-40MG TAB PO PRN (07:58)
[2020-07-10] MEDS: MECLIZINE 25 MG TAB PO PRN (07:58)
[2020-07-10] MEDS: FLUTICASONE 220 MCG INHALER INHALATION SCH (08:05)
[2020-07-10] MEDS: CROMOLYN SODIUM BOTH EYES SCH (09:27)
[2020-07-10] MEDS: BACLOFEN 10 MG TAB PO SCH (09:32)
[2020-07-10] MEDS: GABAPENTIN 300 MG CAP PO SCH (09:32)
[2020-07-10] MEDS: MULTIVITAMINS, THERA 1 EACH TAB PO SCH (09:33)
[2020-07-10] MEDS: SUCRALFATE 1 GM TAB PO SCH (09:33)
[2020-07-10] MEDS: HYDROcodone/APAP 10-325MG 1 EACH TAB PO SCH (09:33)
[2020-07-10] MEDS: KETOTIFEN 0.025% OPHTH DROPS 5 ML BTL BOTH EYES SCH (09:35)
[2020-07-10] MEDS: DESVENLAFAXINE SUCCINATE 50 MG TAB.ER.24H PO SCH (09:36)
[2020-07-10] MEDS: busPIRone HCl 10 MG TAB PO SCH (09:40)
--- NOTE | 2020-07-10 11:17 | P.DS ---
<Emily Beebe - Last Filed: 07/10/20 11:08> Providers Expected date of discharge: 07/10/20 Hospital Course: Discharge diagnosis 1. 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 Intra-abdominal peritoneal adhesions 3. Morbid obesity due to excess calories, BMI 56.4. 4. History of gastric bypass 5. Multiple sclerosis 6. Gastrojejunal stricture 7. Atypical chest pain 8. Chronic pain syndrome Hospital course Britt Albarran is a 25-year-old female status post gastric bypass 02/08/2018. She is over 2 years out. She presented to the ER at least twice in the last 5 days complaining of lower abdominal pain including atypical chest pain with radiation to left arm. She reports intermittent chest pain aggravated by eating. She has pre-existing history of gastric ulcers including esophageal obstruction. Separately, multiple diagnostic studies have been performed. Her symptoms continue to be moderate to severe crampy abdominal pain, progressive chest pain and arm pain. As a result of progressive symptoms including pre- existing history of gastric bypass, patient is admitted for her atypical chest pain was dysphagia with lower abdominal pain. Patient is status post EGD with balloon dilation from 12-20 mm. And she is status post Robotic-assisted da Olga Xi laparoscopic with extensive lysis of adhesions over 1 hr and takedown and repair of enteroenteric enteric fistula, jejunum. Patient reports that her pain is improved. She denies any nausea or vomiting. She is tolerating regular diet. She denies any difficulty with her swallowing. She is up and ambulating. She is passing gas and did have a small bowel movement. She is afebrile. Patient also seen by neurology during this admission regarding her left arm weakness and numbness with chest pain. Neurology had recommended further imaging of the brain. However, patient opted out of getting repeated MRI of the brain or any imaging of the cervical or thoracic spine. She also refused any IV steroids. Patient will hold off on any further neurological workup at this time. Patient will follow-up with her neurologist Dr. Delgado in the outpatient setting. Patient reported that she is feeling better today and would like to be discharged. She is stable for discharge. Physician Shirt Finisher note has been reviewed by physician. Signing provider agrees with the documented findings, assessment, and plan of care. Patient Condition at Discharge: Stable Plan - Discharge Summary Discharge Rx Participant: No New Discharge Prescriptions: Continue Zonisamide 200 mg PO HS QUEtiapine [SEROquel] 25 mg PO HS Omeprazole 40 mg PO DAILY #90 capsule.dr Sorenson Oral Contraceptive 1 tab PO HS Butalb/APAP/Caff 50-325-40Mg [Fioricet 50-325-40] 1 tab PO TID PRN PRN Reason: Migraine Headache Ergocalciferol (Vitamin D2) [Vitamin D2] 50,000 unit PO MO modafiniL [Provigil] 200 mg PO BID ondansetron HCL [Zofran] 8 mg PO TID PRN PRN Reason: Nausea Meclizine HCl 25 mg PO TID PRN PRN Reason: dizziness Loratadine [Claritin] 10 mg PO DAILY PRN PRN Reason: Allergy Symptoms Levothyroxine Sodium [Synthroid] 50 mcg PO DAILY Baclofen [Lioresal] 20 mg PO TID cloNIDine HCL [Catapres] 0.1 mg PO HS Galcanezumab-Gnlm [Emgality Pen] 120 mg SQ Q30D ARIPiprazole [Abilify] 5 mg PO HS ARIPiprazole [Abilify] 2 mg PO HS busPIRone HCL 10 mg PO TID Desvenlafaxine [Pristiq ER] 100 mg PO DAILY Sucralfate [Carafate] 1 gm PO BID Eletriptan HBr [Relpax] 40 mg PO DAILY PRN PRN Reason: Migraine Headache Prazosin HCl 5 mg PO HS Pediatric Multivitamin No.30 [Multivitamin Children's Gummies] 2 tab PO DAILY Oxybutynin Chloride [Oxybutynin Chloride ER] 10 mg PO HS Montelukast Sodium [Singulair] 10 mg PO HS Pseudoephedrine 12Hr [Sudafed 12 Hour] 120 mg PO Q12H PRN PRN Reason: Congestion Carboxymethylcellulose Sodium [Refresh Tears] 1 drop BOTH EYES QID PRN PRN Reason: DRY EYES Ketotifen 0.025% Ophth Soln [Zaditor] 1 drop BOTH EYES BID HYDROcodone/APAP 10-325MG [[place] 10-325] 1 tab PO TID Gabapentin 600 mg PO QID Fluticasone Propionate [Flovent Hfa 220 mcg] 2 puff INHALATION RT-BID Cromolyn Sodium 1 drop BOTH EYES BID Discharge Medication List Zonisamide 200 mg PO HS 04/06/15 [History] QUEtiapine [SEROquel] 25 mg PO HS 04/29/17 [History] Omeprazole 40 mg PO DAILY #90 capsule. 03/26/18 [Rx] [place] Oral Contraceptive 1 tab PO HS 09/08/18 [History] Butalb/APAP/Caff 50-325-40Mg [Fioricet 50-325-40] 1 tab PO TID PRN 10/05/18 [History] Ergocalciferol (Vitamin D2) [Vitamin D2] 50,000 unit PO MO 10/05/18 [History] Baclofen [Lioresal] 20 mg PO TID 03/21/19 [History] Galcanezumab-Gnlm [Emgality Pen] 120 mg SQ Q30D 03/21/19 [History] Levothyroxine Sodium [Synthroid] 50 mcg PO DAILY 03/21/19 [History] Loratadine [Claritin] 10 mg PO DAILY PRN 03/21/19 [History] Meclizine HCl 25 mg PO TID PRN 03/21/19 [History] cloNIDine HCL [Catapres] 0.1 mg PO HS 03/21/19 [History] modafiniL [Provigil] 200 mg PO BID 03/21/19 [History] ondansetron HCL [Zofran] 8 mg PO TID PRN 03/21/19 [History] ARIPiprazole [Abilify] 2 mg PO HS 07/04/20 [History] ARIPiprazole [Abilify] 5 mg PO HS 07/04/20 [History] Carboxymethylcellulose Sodium [Refresh Tears] 1 drop BOTH EYES QID PRN 07/04/20 [History] Cromolyn Sodium 1 drop BOTH EYES BID 07/04/20 [History] Desvenlafaxine [Pristiq ER] 100 mg PO DAILY 07/04/20 [History] Eletriptan HBr [Relpax] 40 mg PO DAILY PRN 07/04/20 [History] Fluticasone Propionate [Flovent Hfa 220 mcg] 2 puff INHALATION RT-BID 07/04/20 [History] Gabapentin 600 mg PO QID 07/04/20 [History] HYDROcodone/APAP 10-325MG [[place] 10-325] 1 tab PO TID 07/04/20 [History] Ketotifen 0.025% Ophth Soln [Zaditor] 1 drop BOTH EYES BID 07/04/20 [History] Montelukast Sodium [Singulair] 10 mg PO HS 07/04/20 [History] Oxybutynin Chloride [Oxybutynin Chloride ER] 10 mg PO HS 07/04/20 [History] Pediatric Multivitamin No.30 [Multivitamin Children's Gummies] 2 tab PO DAILY 07/04/20 [History] Prazosin HCl 5 mg PO HS 07/04/20 [History] Pseudoephedrine 12Hr [Sudafed 12 Hour] 120 mg PO Q12H PRN 07/04/20 [History] Sucralfate [Carafate] 1 gm PO BID 07/04/20 [History] busPIRone HCL 10 mg PO TID 07/04/20 [History] Follow up Appointment(s)/Referral(s): Evie Garg MD [STAFF PHYSICIAN] - 07/10/20 2:00 pm Yasmani Delgado MD [Medical Doctor] - 08/01/20 10:00 am Activity/Diet/Wound Care/Special Instructions: No lifting over 4 pounds in 4 weeks until August 06. September shower. No bath tub soaks for two weeks until July 23 Avoid steak, tough meats and seeds such as raspberry seeds. Use ice along incisions for the today to prevent swelling. Discharge Disposition: HOME SELF-CARE <Evie Garg - Last Filed: 07/30/20 21:40> Providers Date of admission: 07/09/20 16:38 Attending physician: Evie Garg Consults: 07/08/20 14:38 Consult Physician Routine Consulting Provider: Leslie Zee Consult Reason/Comments: Acute multiple sclerosis, chest left arm weakness/pain Do you want consulting provider notified?: Yes Primary care physician: Parminder Torres - Discharge Diagnosis(es) (1) Atypical chest pain Status: Acute (2) Lower abdominal pain Status: Acute (3) Dysphagia Status: Acute (4) Chronic pain syndrome Status: Acute (5) Gastric bypass status for obesity Status: Acute (6) Left lower quadrant abdominal pain Status: Acute (7) Peritoneal adhesions Status: Acute Hospital Course: As above. Patient seen and evaluated. She reported improvement and resolution of her atypical chest pain following gastric dilation and resolution of left lower quadrant pain following lysis of adhesions and take down of enteric-enteric fistula. Patient was clinically stable for discharge as she was tolerating diet and had bowel movements. Procedures: OPERATION: 1. Robotic-assisted da Olga Xi laparoscopic with extensive lysis of adhesions over 1 hr 2. Takedown and repair of enteroenteric enteric fistula, jejunum ESTIMATED BLOOD LOSS: 5 mL. SPECIMENS REMOVED: None. COMPLICATIONS: None. OPERATIVE FINDINGS: 1. Omentum to abdominal wall adhesion left lower quadrant consistent with location of patient's pain 2. Abnormal enteroenteric enteric fistula of jejunojejunostomy to kimberly limb divided and repair also at the left upper/lower quadrant 3. No internal hernia of the Garcia's defect and jejunojejunostomy mesenteric defect
[2020-07-23] MEDS ORDERED: GALCANEZUMAB GNLM SQ SCH (09:00)
[2020-07-30] MEDS ORDERED: ERGOCALCIFEROL 1,250 MCG (50,000 IU) CAPSULE PO SCH (09:00)
== END 2020-07-10 13:53 | disposition home or self-care (01) | DRG 336 ==
LOC: EC 19:43 → 6NMEDSUR 23:01 → OBSVTOIN 07-09 16:38
PROVIDERS: ADMIT Surgery Plastic and Reconstructive Surgery; ATTEND Surgery Plastic and Reconstructive Surgery
DX: K66.0 Peritoneal adhesions (postprocedural) (postinfection) (principal); K91.30 Postprocedural intestinal obstruction, unspecified as to partial versus complete; Z68.43 Body mass index [BMI] 50.0-59.9, adult; K63.2 Fistula of intestine; K22.2 Esophageal obstruction; I11.9 Hypertensive heart disease without heart failure; E66.01 Morbid (severe) obesity due to excess calories; G35 Multiple sclerosis; Z20.822 Contact with and (suspected) exposure to COVID-19; R13.10 Dysphagia, unspecified; G47.33 Obstructive sleep apnea (adult) (pediatric); M16.0 Bilateral primary osteoarthritis of hip; K21.9 Gastro-esophageal reflux disease without esophagitis; F32.9 Major depressive disorder, single episode, unspecified; E03.9 Hypothyroidism, unspecified; R07.89 Other chest pain; G89.4 Chronic pain syndrome; K44.9 Diaphragmatic hernia without obstruction or gangrene; F41.9 Anxiety disorder, unspecified; J45.909 Unspecified asthma, uncomplicated; G43.909 Migraine, unspecified, not intractable, without status migrainosus; N32.81 Overactive bladder; K58.9 Irritable bowel syndrome, unspecified; M54.9 Dorsalgia, unspecified; Z79.890 Hormone replacement therapy; Z79.899 Other long term (current) drug therapy; Z98.84 Bariatric surgery status; Z86.14 Personal history of Methicillin resistant Staphylococcus aureus infection; Z87.11 Personal history of peptic ulcer disease; Z90.49 Acquired absence of other specified parts of digestive tract; Z87.19 Personal history of other diseases of the digestive system; Z86.69 Personal history of other diseases of the nervous system and sense organs; Z98.890 Other specified postprocedural states; Z88.8 Allergy status to other drugs, medicaments and biological substances; Z88.6 Allergy status to analgesic agent; Z91.02 Food additives allergy status; Z88.5 Allergy status to narcotic agent; Z91.010 Allergy to peanuts; Z83.3 Family history of diabetes mellitus; Z83.49 Family history of other endocrine, nutritional and metabolic diseases
CPT/HCPCS: 36415; 43249; 71046; 80053; 83690; 83735; 84443; 84484; 84703; 85025; 85379; 85610; 85730; 87635; 93005; 94640; 94760; 96374; 96375; 99285

== ENCOUNTER → 2020-07-12 | Outpatient (CLI) | payer OTHER ==
[2020-07-12] MEDS: SODIUM CHLORIDE 0.9% 1,000 ML IV SCH ×2 (10:05→11:09)
== END | disposition home or self-care (01) ==
LOC: PROCWHC3 09:53
PROVIDERS: ATTEND Surgery Plastic and Reconstructive Surgery
DX: E86.0 Dehydration (principal)
CPT/HCPCS: 96360; 96361

== ENCOUNTER → 2020-07-12 | Outpatient (CLI) | payer OTHER ==
--- NOTE | 2020-07-12 13:20 | P.PN ---
Subjective Progress Note Date: 07/12/20 CHIEF COMPLAINT: Status post gastric bypass, history of abdominal pain HISTORY OF PRESENT ILLNESS: Britt Albarran is a 25-year-old female status post gastric bypass 02/08/2018. She is over 2 years out. She was recently hospitalized secondary to lower abdominal pain with findings of enteric enteric fistula. She presents postop day 3 following lysis of adhesions and takedown of enterocutaneous fistula. Yesterday, she was coming out of her brother leesa and twisted he torso with immediate pain. She reports burning sensation along the lower abdomen. She cane in as a result. She was given IV fluid hydration. Her highest weight was 395 pounds. Today she comes in weighing 359 pounds from 317 pounds, 9 months ago. She has gained 41 pounds in 9 months. At her height of 5 foot 7.25 inches, her ideal body weight is 158 pounds. She has lost 37 pounds lifetime. Percent excess weight loss 16%. Her highest body mass index was 61.5. Today her BMI is 55.8. PHYSICAL EXAM: VITAL SIGNS: Height 5 foot 7.25 inches, weight 358 pounds. BMI 55.8 GENERAL: Well-developed female in no acute distress. HEENT: No scleral icterus. Extraocular movements grossly intact. Hears conversational speech. No nasal drainage. NECK: Supple without lymphadenopathy. CHEST: Nonlabored respirations with equal bilateral excursions. CARDIOVASCULAR: Regular rate. Distal 2+ pulses. ABDOMEN: Obese, soft, nondistended. Incisions intact. No infection. No ecchymosis. MUSCULOSKELETAL: No clubbing, cyanosis. No pitting edema. NEURO: No focal or lateralizing signs. Cranial nerves 2 through 12 grossly within normal limits. PSYCH: Appropriate affect. Alert and oriented to person, place and time. SKIN: Fair skin turgor. Well perfused. ASSESSMENT: 1. Atypical chest pain with dysphagia and history of gastric ulcers with esophageal obstruction 2. Lower abdominal pain 3. Morbid obesity due to excess calories 4. Body mass index 61.5 down to 56.2 5. Irritable bowel syndrome. 6. Obstructive sleep apnea. 7. Osteoarthritis of the hips 8. Hypertensive heart disease. 9. Gastroesophageal reflux disease 10. Anxiety. 11. Depression. 12. Migraines. 13. Overactive bladder. 14. Chronic back pain. 15. Degenerative joint disease. 16. Asthma. 17. Multiple sclerosis 18. Weight gain following bariatric procedure 19. Hypothyroidism 20. History of enteric enteric fistula PLAN: 1. Abdominal binder ordered. 2. Recommend follow-up as needed. 3. Overall anticipated expectant management.
[2020-07-12 14:24] VITALS: BMI 25.3
== END | disposition home or self-care (01) ==
LOC: BARWHC3 13:17
PROVIDERS: ATTEND Surgery Plastic and Reconstructive Surgery
DX: Z48.815 Encounter for surgical aftercare following surgery on the digestive system (principal); Z98.890 Other specified postprocedural states
CPT/HCPCS: 96360; 96361; G0463; 99211

== ENCOUNTER 2020-08-04 03:31 | Observation (INO) | payer OTHER ==
--- NOTE | 2020-08-04 04:17 | ED ---
Arrhythmia/Palpitations HPI - General Chief Complaint: Arrhythmia/Palpitations Stated Complaint: High heart rate, light-headed Time Seen by Provider: 08/04/20 03:44 Source: patient Mode of arrival: wheelchair Limitations: no limitations - History of Present Illness Initial Comments: This patient is 25-year-old woman presenting to be evaluated for palpitations. The patient states that tonight she took her night medication and then noticed shortly afterwards that it felt like her heart was pounding in her chest. She started new medication is zonisamide. She did not notice any anginal symptoms, no dyspnea, diaphoresis, nausea or vomiting, lightheadedness or syncope. MD Complaint: rapid heart beat Onset/Timin -: hour(s) Context: occurred during rest - Related Data Home Medications Medication Instructions Recorded Confirmed Zonisamide 200 mg PO HS 04/06/15 07/12/20 QUEtiapine [SEROquel] 25 mg PO HS 04/29/17 07/12/20 [place] Oral Contraceptive 1 tab PO HS 09/08/18 07/12/20 Butalb/APAP/Caff 50-325-40Mg 1 tab PO TID PRN 10/05/18 07/12/20 [Fioricet 50-325-40] Ergocalciferol (Vitamin D2) 50,000 unit PO MO 10/05/18 07/12/20 [Vitamin D2] Baclofen [Lioresal] 20 mg PO TID 03/21/19 07/12/20 Galcanezumab-Gnlm [Emgality Pen] 120 mg SQ Q30D 03/21/19 07/12/20 Levothyroxine Sodium [Synthroid] 50 mcg PO DAILY 03/21/19 07/12/20 Loratadine [Claritin] 10 mg PO DAILY PRN 03/21/19 07/12/20 Meclizine HCl 25 mg PO TID PRN 03/21/19 07/12/20 cloNIDine HCL [Catapres] 0.1 mg PO HS 03/21/19 07/12/20 modafiniL [Provigil] 200 mg PO BID 03/21/19 07/12/20 ondansetron HCL [Zofran] 8 mg PO TID PRN 03/21/19 07/12/20 ARIPiprazole [Abilify] 2 mg PO HS 07/04/20 07/12/20 ARIPiprazole [Abilify] 5 mg PO HS 07/04/20 07/12/20 Carboxymethylcellulose Sodium 1 drop BOTH EYES QID PRN 07/04/20 07/12/20 [Refresh Tears] Cromolyn Sodium 1 drop BOTH EYES BID 07/04/20 07/12/20 Desvenlafaxine [Pristiq ER] 100 mg PO DAILY 07/04/20 07/12/20 Eletriptan HBr [Relpax] 40 mg PO DAILY PRN 07/04/20 07/12/20 Fluticasone Propionate [Flovent 2 puff INHALATION RT-BID 07/04/20 07/12/20 Hfa 220 mcg] Gabapentin 600 mg PO QID 07/04/20 07/12/20 HYDROcodone/APAP 10-325MG [[place] 1 tab PO TID 07/04/20 07/12/20 10-325] Ketotifen 0.025% Ophth Soln 1 drop BOTH EYES BID 07/04/20 07/12/20 [Zaditor] Montelukast Sodium [Singulair] 10 mg PO HS 07/04/20 07/12/20 Oxybutynin Chloride [Oxybutynin 10 mg PO HS 07/04/20 07/12/20 Chloride ER] Pediatric Multivitamin No.30 2 tab PO DAILY 07/04/20 07/12/20 [Multivitamin Children's Gummies] Prazosin HCl 5 mg PO HS 07/04/20 07/12/20 Pseudoephedrine 12Hr [Sudafed 12 120 mg PO Q12H PRN 07/04/20 07/12/20 Hour] Sucralfate [Carafate] 1 gm PO BID 07/04/20 07/12/20 busPIRone HCL 10 mg PO TID 07/04/20 07/12/20 Previous Rx's Medication Instructions Recorded Omeprazole 40 mg PO DAILY #90 capsule. 03/26/18 Allergies Allergy/AdvReac Type Severity Reaction Status Date / Time peanut Allergy Anaphylaxis Verified 08/04/20 03:41 aspartame AdvReac Diarrhea Verified 08/04/20 03:41 codeine AdvReac Dyspnea Verified 08/04/20 03:41 fingolimod [From Ender] AdvReac Abdominal Verified 08/04/20 03:41 Pain ibuprofen AdvReac Abdominal Verified 08/04/20 03:41 Pain morphine AdvReac Dyspnea Verified 08/04/20 03:41 Review of Systems ROS Statement: Those systems with pertinent positive or pertinent negative responses have been documented in the HPI. ROS Other: All systems not noted in ROS Statement are negative. Constitutional: Denies: fever, chills, weakness Eyes: Denies: vision change Respiratory: Denies: cough, dyspnea Cardiovascular: Reports: palpitations. Denies: chest pain, orthopnea, edema, syncope Gastrointestinal: Denies: as per HPI, nausea, vomiting Genitourinary: Denies: dysuria, hematuria Musculoskeletal: Denies: back pain Skin: Denies: rash Neurological: Denies: headache, weakness, numbness, paresthesias Psychiatric: Reports: anxiety Past Medical History Past Medical History: Asthma, Musculoskeletal Disorder Additional Past Medical History / Comment(s): migraines, DDD, IBS, overactive bladder, chronic back pain, gastrojejunal ulcer (dx 03-26-18)., states high bloodpressure when hospitalized., Hx of ER visit in May 2018 with dizziness, nausea & vomiting, blurred vision and lower extremity weakness, 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 Past Anesthesia/Blood Transfusion Reactions: No Reported Reaction Past Psychological History: Anxiety, Depression Smoking Status: Never smoker Past Alcohol Use History: None Reported Past Drug Use History: None Reported - Past Family History Mother Family Medical History: Diabetes Mellitus General Exam Limitations: no limitations General appearance: alert, in no apparent distress, anxious Head exam: Present: atraumatic, normocephalic Eye exam: Present: normal appearance. Absent: scleral icterus, conjunctival injection Respiratory exam: Present: normal lung sounds bilaterally. Absent: respiratory distress, wheezes, rales, rhonchi, stridor Cardiovascular Exam: Present: normal rhythm, tachycardia, normal heart sounds. Absent: systolic murmur, diastolic murmur, rubs, gallop GI/Abdominal exam: Present: soft. Absent: distended, tenderness, guarding, rebound, rigid, mass Extremities exam: Present: normal inspection, normal capillary refill. Absent: pedal edema, calf tenderness Back exam: Present: normal inspection Neurological exam: Present: alert Skin exam: Present: warm, dry, intact, normal color. Absent: rash Course Vital Signs 08/04/20 08/04/20 08/04/20 03:38 04:00 06:13 Temperature 98.6 F 98.1 F Pulse Rate 116 H 78 Pulse Rate [ 91 Tableau Lead ] Respiratory 20 18 Rate Blood Pressure 93/71 126/73 O2 Sat by Pulse 96 98 Oximetry EKG Findings - EKG Results: EKG: interpreted by RACHELL RUDD, sinus rhythm (Rate 91 bpm), normal axis, normal QRS, normal ST/T, no acute changes Medical Decision Making - Medical Decision Making Patient is 25-year-old woman presenting with palpitations and chest pain. Pain is mainly atypical in nature, but She does have T inversions in the anterior leads which were not present previously. The patient will be admitted observation for serial cardiac enzymes and telemetry monitoring as well as cardiology consultation - Lab Data Result diagrams: 08/04/20 04:17 08/04/20 04:17 Lab Results 08/04/20 08/04/20 08/04/20 Range/Units 04:17 04:17 04:17 WBC 6.2 (3.8-10.6) k/uL RBC 4.27 (3.80-5.40) m/uL Hgb 13.3 (11.4-16.0) gm/dL Hct 39.0 (34.0-46.0) % MCV 91.3 (80.0-100.0) fL MCH 31.1 (25.0-35.0) pg MCHC 34.1 (31.0-37.0) g/dL RDW 13.2 (11.5-15.5) % Plt Count 195 (150-450) k/uL MPV 8.9 Neutrophils % 65 % Lymphocytes % 27 % Monocytes % 5 % Eosinophils % 1 % Basophils % 0 % Neutrophils # 4.1 (1.3-7.7) k/uL Lymphocytes # 1.7 (1.0-4.8) k/uL Monocytes # 0.3 (0-1.0) k/uL Eosinophils # 0.1 (0-0.7) k/uL Basophils # 0.0 (0-0.2) k/uL PT 9.7 (9.0-12.0) sec INR 0.9 (<1.2) APTT 22.4 (22.0-30.0) sec D-Dimer 0.53 (<0.60) mg/L FEU Sodium 136 L (137-145) mmol/L Potassium 4.0 (3.5-5.1) mmol/L Chloride 107 (98-107) mmol/L Carbon Dioxide 22 (22-30) mmol/L Anion Gap 7 mmol/L BUN 9 (7-17) mg/dL Creatinine 0.70 (0.52-1.04) mg/dL Est GFR (CKD-EPI)AfAm >90 (>60 ml/min/1.73 sqM) Est GFR (CKD-EPI)NonAf >90 (>60 ml/min/1.73 sqM) Glucose 95 (74-99) mg/dL Calcium 9.3 (8.4-10.2) mg/dL Magnesium 1.9 (1.6-2.3) mg/dL Total Bilirubin 0.2 (0.2-1.3) mg/dL AST 21 (14-36) U/L ALT 18 (4-34) U/L Alkaline Phosphatase 89 (38-126) U/L Troponin I (0.000-0.034) ng/mL Total Protein 6.1 L (6.3-8.2) g/dL Albumin 4.0 (3.5-5.0) g/dL 08/04/20 Range/Units 04:17 WBC (3.8-10.6) k/uL RBC (3.80-5.40) m/uL Hgb (11.4-16.0) gm/dL Hct (34.0-46.0) % MCV (80.0-100.0) fL MCH (25.0-35.0) pg MCHC (31.0-37.0) g/dL RDW (11.5-15.5) % Plt Count (150-450) k/uL MPV Neutrophils % % Lymphocytes % % Monocytes % % Eosinophils % % Basophils % % Neutrophils # (1.3-7.7) k/uL Lymphocytes # (1.0-4.8) k/uL Monocytes # (0-1.0) k/uL Eosinophils # (0-0.7) k/uL Basophils # (0-0.2) k/uL PT (9.0-12.0) sec INR (<1.2) APTT (22.0-30.0) sec D-Dimer (<0.60) mg/L FEU Sodium (137-145) mmol/L Potassium (3.5-5.1) mmol/L Chloride (98-107) mmol/L Carbon Dioxide (22-30) mmol/L Anion Gap mmol/L BUN (7-17) mg/dL Creatinine (0.52-1.04) mg/dL Est GFR (CKD-EPI)AfAm (>60 ml/min/1.73 sqM) Est GFR (CKD-EPI)NonAf (>60 ml/min/1.73 sqM) Glucose (74-99) mg/dL Calcium (8.4-10.2) mg/dL Magnesium (1.6-2.3) mg/dL Total Bilirubin (0.2-1.3) mg/dL AST (14-36) U/L ALT (4-34) U/L Alkaline Phosphatase (38-126) U/L Troponin I <0.012 (0.000-0.034) ng/mL Total Protein (6.3-8.2) g/dL Albumin (3.5-5.0) g/dL Disposition Clinical Impression: Chest pain Disposition: ADMITTED IP TO THIS HOSP Condition: Fair Referrals: Parminder Torres DO [Primary Care Provider] - 1-2 days
[2020-08-04 04:30] LABS: Basophils % (A) 0 %; Eosinophils # (A) 0.1 k/uL (0-0.7); Eosinophils % (A) 1 %; HGB 13.3 gm/dL (11.4-16.0); Lymphocytes # (A) 1.7 k/uL (1.0-4.8); Lymphocytes % (A) 27 %; MCH 31.1 pg (25.0-35.0); MCHC 34.1 g/dL (31.0-37.0); MCV 91.3 fL (80.0-100.0); Mean Platelet Volume 8.9; Monocytes # (A) 0.3 k/uL (0-1.0); Monocytes % (A) 5 %; Neutrophils # (A) 4.1 k/uL (1.3-7.7); Neutrophils % (A) 65 %; Platelet Count 195 k/uL (150-450); RBC 4.27 m/uL (3.80-5.40); RDW 13.2 % (11.5-15.5); WBC 6.2 k/uL (3.8-10.6)
[2020-08-04 04:39] LABS: ALT 18 U/L (4-34); AST 21 U/L (14-36); African American GFR (CKD) >90 (>60 ml/min/1.73 sqM); Alkaline Phosphatase 89 U/L (38-126); Anion Gap 7 mmol/L; Blood Urea Nitrogen 9 mg/dL (7-17); Calcium 9.3 mg/dL (8.4-10.2); Carbon Dioxide 22 mmol/L (22-30); Chloride 107 mmol/L (98-107); Glucose 95 mg/dL (74-99); Magnesium 1.9 mg/dL (1.6-2.3); Non-African American GFR(CKD) >90 (>60 ml/min/1.73 sqM); Sodium 136 mmol/L (137-145); Total Bilirubin 0.2 mg/dL (0.2-1.3); Total Protein 6.1 g/dL (6.3-8.2)
[2020-08-04] MEDS ORDERED: SODIUM CHLORIDE 0.9% 1,000 ML IV ONE (04:39)
[2020-08-04 04:55] LABS: D-Dimer 0.53 mg/L FEU (<0.60); INR 0.9 (<1.2); Partial Thromboplastin Time 22.4 sec (22.0-30.0); Prothrombin Time 9.7 sec (9.0-12.0)
--- NOTE | 2020-08-04 04:57 | XR ---
EXAM: XR Chest, 2 Views CLINICAL HISTORY: dysrhythmia TECHNIQUE: Frontal and lateral views of the chest. COMPARISON: July 07, 2020 FINDINGS: Lungs: Unremarkable. No infiltration, atelectasis or mass density. Pleural space: Unremarkable. No pneumothorax. No pleural fluid. Heart: Unremarkable. No cardiomegaly. Mediastinum: Unremarkable. Bones/joints: Unremarkable. No acute abnormalities. IMPRESSION: Negative chest x-rays.
[2020-08-04] MEDS ORDERED: NITROGLYCERIN SL TABS 0.4 MG TAB SUBLINGUAL PRN (06:30)
[2020-08-04] MEDS ORDERED: ARTIFICIAL TEARS-HYPROMELLOSE DROPS 15 ML BTL BOTH EYES PRN (10:42)
[2020-08-04] MEDS: busPIRone HCl 5 MG TAB PO SCH ×2 (12:19→22:31)
[2020-08-04] MEDS: GABAPENTIN 300 MG CAP PO SCH ×3 (12:19→22:30)
[2020-08-04] MEDS: BACLOFEN 10 MG TAB PO SCH ×2 (12:19→22:29)
[2020-08-04] MEDS: PANTOPRAZOLE 40 MG TABLET PO SCH (12:19)
[2020-08-04] MEDS: LEVOTHYROXINE 50 MCG TAB PO SCH (12:54)
--- NOTE | 2020-08-04 13:16 | P.HPCAR ---
History of Present Illness H&P Date: 08/04/20 The patient is a 25-year-old female with past medical history of multiple sclerosis, depression, and obesity, who presented to the hospital after experiencing chest pains and palpitations. She states this has been going on intermittently over the last several months and recently was evaluated in our office by Dr. Lees. The patient was scheduled to undergo stress testing, echocardiogram and event monitor, however the event monitor has yet to come in the mail. She states the evening prior she had taken her evening dose of medication and went to bed. She woke up with an acute onset of heaviness in her chest which was associated with a heart feeling as though "it was going to beat out of my chest." The patient does state she recently went through an MS flare or she was on steroids for several weeks. She states this is now resolved for at least over 1 week. The patient was interviewed and examined lying in the bed. She states she is having chest heaviness and heart racing at this time. She denies any orthopnea, dizziness, or lightheadedness. Her pain was not relieved when sitting up or forward. DIAGNOSTICS: EKG shows sinus mechanism without ST or T-wave changes Telemetry overnight shows no evidence of cardiac arrhythmia Laboratory data shows WBC 6.2, hemoglobin 13.3, hematocrit 39.0, platelet 195, sodium 136, potassium 4.0, BUN 9, creatinine 0.70, magnesium 1.9, troponins negative 3, ALT 21, AST 18, TSH 1.9 PAST MEDICAL HISTORY: Multiple or sclerosis, depression, and obesity REVIEW OF SYSTEMS: No fever or chills. No cough or expectoration. No diaphoresis. Patient denies headache, dizziness, blurred vision, double vision. Patient denies any stomach discomfort. No nausea, vomiting. No hematochezia. No hematemesis. Denies any black stools or blood in his stools. Denies dysuria or hematuria. No muscle weakness or numbness. Positive for chest heaviness. No tenderness to palpation. PHYSICAL EXAMINATION: This is a 25-year-old obese female in no apparent distress at the time of my examination. HEENT: Head is atraumatic, normocephalic. Pupils are equal, round. Sclerae anicteric. Conjunctivae are clear. Mucous membranes of the mouth are moist. Neck is supple. There is no jugular venous distention. No carotid bruit is heard. CHEST EXAMINATION: Lungs are clear to auscultation. No chest wall tenderness is noted on palpation or with deep breathing. HEART EXAMINATION: Heart regular rate and rhythm. S1, S2 heard. No murmurs, gallops or rub. ABDOMEN: Soft, nontender. Bowel sounds are heard. No organomegaly noted. EXTREMITIES: 2+ peripheral pulses with no evidence of peripheral edema and no calf tenderness noted. NEUROLOGIC EXAMINATION: Patient is awake, alert and oriented x3. 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 Plan of care has been reviewed and agreed upon by Dr Reynaga. Physical Exam Vitals: Vital Signs Temp Pulse Pulse Resp BP BP Pulse Ox 08/04/20 08:21 97.7 F 64 18 100/68 98 08/04/20 08:00 18 08/04/20 06:13 98.1 F 78 18 126/73 98 08/04/20 04:00 91 08/04/20 03:38 98.6 F 116 H 20 93/71 96 Intake and Output 08/03/20 08/04/20 08/04/20 22:59 06:59 14:59 Other: Weight 158.757 kg 158.757 kg Past Medical History Past Medical History: Asthma, Musculoskeletal Disorder Additional Past Medical History / Comment(s): migraines, DDD, IBS, overactive bladder, chronic back pain, gastrojejunal ulcer (dx 03-26-)., states high bloodpressure when hospitalized., Hx of ER visit in May 2018 with dizziness, n ausea & vomiting, blurred vision and lower extremity weakness, 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 Past Anesthesia/Blood Transfusion Reactions: No Reported Reaction Past Psychological History: Anxiety, Depression Additional Psychological History / Comment(s): 11/24/18: Uses walker for ambulation, recent dx with Multiple Sclerosis Smoking Status: Never smoker Past Alcohol Use History: None Reported Past Drug Use History: None Reported - Past Family History Mother Family Medical History: Diabetes Mellitus Physical Examination Vital Signs Temp Pulse Pulse Resp BP BP Pulse Ox 08/04/20 08:21 97.7 F 64 18 100/68 98 08/04/20 08:00 18 08/04/20 06:13 98.1 F 78 18 126/73 98 08/04/20 04:00 91 08/04/20 03:38 98.6 F 116 H 20 93/71 96 Intake and Output 08/03/20 08/04/20 08/04/20 22:59 06:59 14:59 Other: Weight 158.757 kg 158.757 kg Results 08/04/20 04:17 08/04/20 04:17 Cardiac Enzymes 08/04/20 08/04/20 08/04/20 Range/Units 04:17 04:17 07:23 AST 21 (14-36) U/L Troponin I <0.012 <0.012 (0.000-0.034) ng/mL 08/04/20 Range/Units 09:01 AST (14-36) U/L Troponin I <0.012 (0.000-0.034) ng/mL Coagulation 08/04/20 Range/Units 04:17 PT 9.7 (9.0-12.0) sec APTT 22.4 (22.0-30.0) sec CBC 08/04/20 Range/Units 04:17 WBC 6.2 (3.8-10.6) k/uL RBC 4.27 (3.80-5.40) m/uL Hgb 13.3 (11.4-16.0) gm/dL Hct 39.0 (34.0-46.0) % Plt Count 195 (150-450) k/uL Comprehensive Metabolic Panel 08/04/20 Range/Units 04:17 Sodium 136 L (137-145) mmol/L Potassium 4.0 (3.5-5.1) mmol/L Chloride 107 (98-107) mmol/L Carbon Dioxide 22 (22-30) mmol/L BUN 9 (7-17) mg/dL Creatinine 0.70 (0.52-1.04) mg/dL Glucose 95 (74-99) mg/dL Calcium 9.3 (8.4-10.2) mg/dL AST 21 (14-36) U/L ALT 18 (4-34) U/L Alkaline Phosphatase 89 (38-126) U/L Total Protein 6.1 L (6.3-8.2) g/dL Albumin 4.0 (3.5-5.0) g/dL Current Medications Generic Name Dose Route Start Last Admin Trade Name Freq PRN Reason Stop Dose Admin Aripiprazole 2 mg 08/04/20 21:00 Aripiprazole 2 Mg Tab PO HS ABDOUL Aripiprazole 5 mg 08/04/20 21:00 Aripiprazole 5 Mg Tab PO HS ABDOUL Artificial Tears 1 drops 08/04/20 10:42 Artificial Tears-Hypromellose Drops 15 Ml Btl BOTH EYES QID PRN DRY EYES Aspirin 325 mg 08/05/20 09:00 Aspirin 325 Mg Tab PO DAILY ABDOUL Baclofen 20 mg 08/04/20 16:00 08/04/20 12:19 Baclofen 10 Mg Tab PO 20 mg TID ABDOUL Administration Buspirone HCl 15 mg 08/04/20 16:00 08/04/20 12:19 Buspirone Hcl 5 Mg Tab PO 15 mg TID ABDOUL Administration Desvenlafaxine Succinate 100 mg 08/05/20 09:00 Desvenlafaxine Succinate 50 Mg Tab.Er.24h PO DAILY ABDOUL Fluticasone Propionate 2 puff 08/04/20 20:00 Fluticasone 220 Mcg Inhaler INHALATION RT-BID ABDOUL Gabapentin 600 mg 08/04/20 13:00 08/04/20 12:19 Gabapentin 300 Mg Cap PO 600 mg QID ABDOUL Administration Heparin Sodium (Porcine) 5,000 unit 08/04/20 16:00 Heparin Sodium,Porcine 5,000 Unit/Ml 1 Ml Vial SQ Q8HR ABDOUL Ketotifen Fumarate 1 drops 08/04/20 21:00 Ketotifen 0.025% Ophth Drops 5 Ml Btl BOTH EYES BID ABDOUL Levothyroxine Sodium 50 mcg 08/04/20 11:30 08/04/20 12:54 Levothyroxine 50 Mcg Tab PO Not Given DAILY@0630 ABDOUL Loratadine 10 mg 08/05/20 09:00 Loratadine 10 Mg Tab PO DAILY ABDOUL Modafinil 200 mg 08/04/20 11:15 08/04/20 12:19 Modafinil 200 Mg Tab PO 200 mg AC-BID ABDOUL Administration Montelukast Sodium 10 mg 08/04/20 21:00 Montelukast 10 Mg Tab PO HS ABDOUL Multivitamins 2 each 08/05/20 09:00 Multivitamins, Pediatric 1 Each Chewable PO DAILY ABDOUL Nitroglycerin 0.4 mg 08/04/20 06:30 Nitroglycerin Sl Tabs 0.4 Mg Tab SUBLINGUAL Q5M PRN Chest Pain Non-Formulary Medication 1 drop 08/04/20 21:00 Cromolyn Sodium [Cromolyn Sodium] BOTH EYES BID [facility] Non-Formulary Medication 1 tab 08/04/20 21:00 [place] Oral Contraceptive PO HS ABDOUL Oxybutynin Chloride 10 mg 08/04/20 21:00 Oxybutynin 10 Mg Tab.Er.24 PO HS ABDOUL Pantoprazole Sodium 40 mg 08/04/20 11:30 08/04/20 12:19 Pantoprazole 40 Mg Tablet PO Not Given AC-BRKFST ABDOUL Prazosin HCl 5 mg 08/04/20 21:00 Prazosin 1 Mg Cap PO HS ABDOUL Quetiapine Fumarate 25 mg 08/04/20 21:00 Quetiapine 25 Mg Tab PO HS ABDOUL Zonisamide 200 mg 08/04/20 21:00 Zonisamide 100 Mg Cap PO HS ABDOUL Intake and Output 08/03/20 08/04/20 08/04/20 22:59 06:59 14:59 Other: Weight 158.757 kg 158.757 kg Patient Weight 08/05/20 06:59 Weight 158.757 kg 08/04/20 04:17 08/04/20 04:17
[2020-08-04] MEDS: ONDANSETRON 4 MG/2 ML VIAL IVP PRN (15:19)
[2020-08-04] MEDS: HEPARIN SODIUM,PORCINE 5,000 UNIT/ML 1 ML VIAL SQ SCH ×2 (16:25→23:46)
--- NOTE | 2020-08-04 18:02 | P.HPIM ---
History of Present Illness H&P Date: 08/04/20 Chief Complaint: Chest pain Patient is a 25-year-old female with a known history of asthma, IBS, overactive bladder, migraine headaches, multiple sclerosis diagnosed in 2019, patient walked with a walker due to lower activity weakness and anxiety/depression presents to ER with the complaints of chest pain/heaviness. Patient says that since yesterday patient has been having palpitations and felt like heart beating fast. Patient has been having intermittent symptoms for the past 1 month and was seen by cardiology. Patient developed left upper chest retrosternal pain a ssociated with mild shortness of breath. No nausea vomiting or diarrhea. No fever no chills. No recent illnesses. No sick contacts. No recent travel. No leg swelling. Patient denied any recent medication changes. Patient is supposed to get stress test, echocardiogram and event monitor to be delivered by mail. Patient was on steroid course until one week ago for MS flare. EKG showed normal sinus rhythm with no acute ST-T wave changes. Chest x-ray showed no acute cardio pulmonary process D-dimer is 0.53 and troponin 3 negative Covid 19 PCR not detected. Review of Systems Constitutional: Patient denies any fever or chills . No generalized weakness or weight loss. Abdomen: Patient denied nausea vomiting and diarrhea and abdominal pain. Cardiovascular: Patient denies any chest pain or short of breath . Patient does complain of palpitations. Respiratory: patient denied any cough is from production. No shortness of breath Neurologic: Patient denied any numbness or tingling headache. Musculoskeletal: Patient denies any complaints of joint swelling or deformity. Skin: Negative Psychiatric: Negative Endocrine: No heat or cold intolerance. No recent weight gain. Genitourinary: No dysuria or hematuria. 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 Past Anesthesia/Blood Transfusion Reactions: No Reported Reaction Past Psychological History: Anxiety, Depression Additional Psychological History / Comment(s): 11/24/18: Uses walker for ambulation, recent dx with Multiple Sclerosis Smoking Status: Never smoker Past Alcohol Use History: None Reported Past Drug Use History: None Reported - Past Family History Mother Family Medical History: Diabetes Mellitus Medications and Allergies Home Medications Medication Instructions Recorded Confirmed Type Zonisamide 200 mg PO HS 04/06/15 08/04/20 History Omeprazole 40 mg PO DAILY #90 capsule. 03/26/18 08/04/20 Rx Setl[place] Oral Contraceptive 1 tab PO HS 09/08/18 08/04/20 History Butalb/APAP/Caff 50-325-40Mg 1 tab PO TID PRN 10/05/18 08/04/20 History [Fioricet 50-325-40] Ergocalciferol (Vitamin D2) 50,000 unit PO MO 10/05/18 08/04/20 History [Vitamin D2] Baclofen [Lioresal] 20 mg PO TID 03/21/19 08/04/20 History Galcanezumab-Gnlm [Emgality Pen] 120 mg SQ Q30D 03/21/19 08/04/20 History Loratadine [Claritin] 10 mg PO DAILY 03/21/19 08/04/20 History Meclizine HCl 25 mg PO TID 03/21/19 08/04/20 History cloNIDine HCL [Catapres] 0.1 mg PO HS 03/21/19 08/04/20 History modafiniL [Provigil] 200 mg PO BID 03/21/19 08/04/20 History ondansetron HCL [Zofran] 8 mg PO TID PRN 03/21/19 08/04/20 History ARIPiprazole [Abilify] 2 mg PO HS 07/04/20 08/04/20 History Carboxymethylcellulose Sodium 1 drop BOTH EYES QID PRN 07/04/20 08/04/20 History [Refresh Tears] Cromolyn Sodium 1 drop BOTH EYES BID 07/04/20 08/04/20 History Desvenlafaxine [Pristiq ER] 100 mg PO DAILY 07/04/20 08/04/20 History Eletriptan HBr [Relpax] 40 mg PO DAILY PRN 07/04/20 08/04/20 History Fluticasone Propionate [Flovent 2 puff INHALATION RT-BID 07/04/20 08/04/20 History Hfa 220 mcg] Gabapentin 600 mg PO QID 07/04/20 08/04/20 History HYDROcodone/APAP 10-325MG [[place] 1 tab PO TID 07/04/20 08/04/20 History 10-325] Ketotifen 0.025% Ophth Soln 1 drop BOTH EYES BID 07/04/20 08/04/20 History [Zaditor] Montelukast Sodium [Singulair] 10 mg PO HS 07/04/20 08/04/20 History Oxybutynin Chloride [Oxybutynin 10 mg PO HS 07/04/20 08/04/20 History Chloride ER] Pediatric Multivitamin No.30 2 tab PO DAILY 07/04/20 08/04/20 History [Multivitamin Children's Gummies] Prazosin HCl 5 mg PO HS 07/04/20 08/04/20 History Pseudoephedrine 12Hr [Sudafed 12 120 mg PO Q12H PRN 07/04/20 08/04/20 History Hour] Sucralfate [Carafate] 1 gm PO BID 07/04/20 08/04/20 History ARIPiprazole [Abilify] 5 mg PO HS 08/04/20 08/04/20 History Levothyroxine Sodium [Synthroid] 50 mcg PO DAILY 08/04/20 08/04/20 History QUEtiapine [SEROquel] 25 mg PO HS 08/04/20 08/04/20 History busPIRone HCL 15 mg PO TID 08/04/20 08/04/20 History Allergies Allergy/AdvReac Type Severity Reaction Status Date / Time peanut Allergy Anaphylaxis Verified 08/04/20 09:19 aspartame AdvReac Diarrhea Verified 08/04/20 09:19 codeine AdvReac Dyspnea Verified 08/04/20 09:19 fingolimod [From Atilekt] AdvReac Abdominal Verified 08/04/20 09:19 Pain ibuprofen AdvReac Abdominal Verified 08/04/20 09:19 Pain morphine AdvReac Dyspnea Verified 08/04/20 09:19 Physical Exam Vitals: Vital Signs Temp Pulse Pulse Resp BP BP Pulse Ox 08/04/20 08:21 97.7 F 64 18 100/68 98 08/04/20 06:13 98.1 F 78 18 126/73 98 08/04/20 04:00 91 08/04/20 03:38 98.6 F 116 H 20 93/71 96 Intake and Output 08/03/20 08/04/20 08/04/20 22:59 06:59 14:59 Other: Weight 158.757 kg 158.757 kg PHYSICAL EXAMINATION: Patient is lying in the bed comfortably, no acute distress, awake alert and oriented. Morbidly obese. HEENT: Normocephalic. Neck is supple. Pupils reactive. Nostrils clear. Oral cavity is moist. Ears reveal no drainage. Neck reveals no JVD, carotid bruits, or thyromegaly. CHEST EXAMINATION: Trachea is central. Symmetrical expansion. Lung [place] clear to auscultation and percussion. CARDIAC: Normal S1, S2 with no gallops. No murmurs ABDOMEN: Soft. Bowel sounds normal. No organomegaly. No abdominal bruits. Extremities: reveal no edema. No clubbing or cyanosis Neurologically awake, alert, oriented x3 with well-coordinated movements. No focal deficits noted. Bilateral lower extremity weakness. Skin: No rash or skin lesions. Psychiatric: Coperative. Nonsuicidal Musculoskeletal: No joint swelling or deformity. Normal range of motion. Results CBC & Chem 7: 08/04/20 04:17 08/04/20 04:17 Labs: Abnormal Lab Results - Last 24 Hours (Table) 08/04/20 Range/Units 04:17 Sodium 136 L (137-145) mmol/L Total Protein 6.1 L (6.3-8.2) g/dL Thrombosis Risk Factor Assmnt - DVT/VTE Prophylaxis DVT/VTE Prophylaxis: Pharmacologic Prophylaxis ordered - Choose All That Apply Each Factor Represents 1 point: Obesity (BMI >25) Thrombosis Risk Factor Assessment Total Risk Factor Score: 1 Thrombosis Risk Factor Assessment Level: Low Risk Assessment and Plan Assessment: Atypical chest pain and palpitations. Ruled out ACS. Intermittent symptoms of palpitations and chest heaviness for more than 1 month and cardiac workup is in progress as an outpatient. Multiple sclerosis with recent flare and steroid course until one week ago Migraine headaches IBS Overactive bladder Chronic back pain Gastrojejunal ulcer history Asthma not in exacerbation Anxiety/depression Multiple sclerosis and bilateral lower extremity weakness uses walker. Morbid obesity BMI 44.8 DVT prophylaxis Plan: Patient will be continued on telemetry monitoring. Serial EKG and troponin 3 negative. D-dimer is not elevated. Due to history of recurrent symptoms patient has been worked up as an outpatient. Event monitor as per cardiology recommendations. 2-D echocardiography was ordered. Continue with home medications and follow up closely. Continue with PPI and DVT prophylaxis. Further recommendations based on the clinical course. Time with Patient: Greater than 30
[2020-08-04] MEDS: HYDROcodone/APAP 10-325MG 1 EACH TAB PO SCH ×2 (18:55→22:37)
[2020-08-04] MEDS: FLUTICASONE 220 MCG INHALER INHALATION SCH (19:47)
[2020-08-04 20:37] LABS: Glucose,Whole Blood 107 mg/dL (75-99)
[2020-08-04] MEDS: [UNRECOGNIZED DRUG - OTHER] PO SCH (22:14)
[2020-08-04] MEDS: CROMOLYN SODIUM BOTH EYES SCH (22:27)
[2020-08-04] MEDS: KETOTIFEN 0.025% OPHTH DROPS 5 ML BTL BOTH EYES SCH (22:29)
[2020-08-04] MEDS: ZONISAMIDE 100 MG CAP PO SCH (22:29)
[2020-08-04] MEDS: ARIPiprazole 5 MG TAB PO SCH (22:29)
[2020-08-04] MEDS: PRAZOSIN 1 MG CAP PO SCH (22:30)
[2020-08-04] MEDS: OXYBUTYNIN 10 MG TAB.ER.24 PO SCH (22:30)
[2020-08-04] MEDS: BUTALB/APAP/CAFF 50-325-40MG TAB PO PRN (22:31)
[2020-08-04] MEDS: MONTELUKAST 10 MG TAB PO SCH (22:31)
[2020-08-04] MEDS: ARIPiprazole 2 MG TAB PO SCH (22:31)
[2020-08-04] MEDS: QUEtiapine 25 MG TAB PO SCH (22:31)
[2020-08-05] MEDS: LEVOTHYROXINE 50 MCG TAB PO SCH (06:11)
[2020-08-05] MEDS: PANTOPRAZOLE 40 MG TABLET PO SCH (07:28)
[2020-08-05] MEDS: ASPIRIN 325 MG TAB PO SCH (08:06)
[2020-08-05] MEDS: CROMOLYN SODIUM BOTH EYES SCH ×2 (08:07→22:16)
[2020-08-05] MEDS: BACLOFEN 10 MG TAB PO SCH ×3 (08:09→22:13)
[2020-08-05] MEDS: HYDROcodone/APAP 10-325MG 1 EACH TAB PO SCH ×3 (08:09→22:13)
[2020-08-05] MEDS: GABAPENTIN 300 MG CAP PO SCH ×4 (08:10→22:13)
[2020-08-05] MEDS: busPIRone HCl 5 MG TAB PO SCH ×3 (08:10→22:12)
[2020-08-05] MEDS: HEPARIN SODIUM,PORCINE 5,000 UNIT/ML 1 ML VIAL SQ SCH ×3 (08:10→22:12)
[2020-08-05] MEDS: FLUTICASONE 220 MCG INHALER INHALATION SCH ×2 (08:12→19:41)
[2020-08-05] MEDS: MULTIVITAMINS, PEDIATRIC 1 EACH CHEWABLE PO SCH (08:13)
[2020-08-05] MEDS: LORATADINE 10 MG TAB PO SCH (08:19)
[2020-08-05] MEDS: KETOTIFEN 0.025% OPHTH DROPS 5 ML BTL BOTH EYES SCH ×2 (08:19→22:16)
[2020-08-05 09:16] LABS: Chol/HDL Ratio 2.03; LDL Cholesterol,Calculated 94.2 mg/dL (0.0-131.0); VLDL Calculation 19.8 mg/dL (5.00-40.00)
[2020-08-05] MEDS: DESVENLAFAXINE SUCCINATE 50 MG TAB.ER.24H PO SCH (09:19)
[2020-08-05] MEDS: QUEtiapine 25 MG TAB PO SCH (22:13)
[2020-08-05] MEDS: MONTELUKAST 10 MG TAB PO SCH (22:14)
[2020-08-05] MEDS: ARIPiprazole 2 MG TAB PO SCH (22:15)
[2020-08-05] MEDS: ARIPiprazole 5 MG TAB PO SCH (22:15)
[2020-08-05] MEDS: [UNRECOGNIZED DRUG - OTHER] PO SCH (22:17)
[2020-08-05] MEDS: OXYBUTYNIN 10 MG TAB.ER.24 PO SCH (22:17)
[2020-08-05] MEDS: PRAZOSIN 1 MG CAP PO SCH (22:17)
[2020-08-05] MEDS: ZONISAMIDE 100 MG CAP PO SCH (22:18)
--- NOTE | 2020-08-06 01:51 | P.PN ---
Subjective Progress Note Date: 08/05/20 Principal diagnosis: Chest Pain Patient is a 25-year-old female with a known history of asthma, IBS, overactive bladder, migraine headaches, multiple sclerosis diagnosed in 2019, patient walked with a walker due to lower activity weakness and anxiety/depression presents to ER with the complaints of chest pain/heaviness. Patient says that since yesterday patient has been having palpitations and felt like heart beating fast. Patient has been having intermittent symptoms for the past 1 month and was seen by cardiology. Patient developed left upper chest retrosternal pain associated with mild shortness of breath. No nausea vomiting or diarrhea. No fever no chills. No recent illnesses. No sick contacts. No recent travel. No leg swelling. Patient denied any recent medication changes. Patient is supposed to get stress test, echocardiogram and event monitor to be d elivered by mail. Patient was on steroid course until one week ago for MS flare. EKG showed normal sinus rhythm with no acute ST-T wave changes. Chest x-ray showed no acute cardio pulmonary process D-dimer is 0.53 and troponin 3 negative Covid 19 PCR not detected. 08/05/2020 Patient is currently lying in the bed. Still complains of left upper retrosternal chest pain which is constant and dull pain. Continues to request pain medications [id number]. Denies any worsening pain with deep br eathing. No complaints of nausea or vomiting or diarrhea. No dysuria or hematuria. No fever no chills. No cough or sputum production. 2D echocardiogram is ordered which is pending at this time. Cardiology is on board. Anticipate discharge in next 24 hours. Hemodynamically stable. Current medications reviewed. Objective - Vital Signs Vital signs: Vital Signs Temp 98.2 F 08/05/20 07:00 Pulse 58 L 08/05/20 07:00 Resp 18 08/05/20 08:00 BP 95/54 08/05/20 07:00 Pulse Ox 97 08/05/20 07:00 Intake & Output 08/04/20 08/05/20 08/05/20 18:59 06:59 18:59 Intake Total 1800 1800 Balance 1800 1800 Weight 158.757 kg Intake: Oral 1800 1800 Other: # Voids 3 2 2 - Exam PHYSICAL EXAMINATION: Patient is lying in the bed comfortably, no acute distress, awake alert and oriented. Morbidly obese. HEENT: Normocephalic. Neck is supple. Pupils reactive. Nostrils clear. Oral cavity is moist. Ears reveal no drainage. Neck reveals no JVD, carotid bruits, or thyromegaly. CHEST EXAMINATION: Trachea is central. Symmetrical expansion. Lung [place] clear to auscultation and percussion. CARDIAC: Normal S1, S2 with no gallops. No murmurs ABDOMEN: Soft. Bowel sounds normal. No organomegaly. No abdominal bruits. Extremities: reveal no edema. No clubbing or cyanosis Neurologically awake, alert, oriented x3 with well-coordinated movements. No focal deficits noted. Bilateral lower extremity weakness. Skin: No rash or skin lesions. Psychiatric: Coperative. Nonsuicidal Musculoskeletal: No joint swelling or deformity. Normal range of motion. - Labs CBC & Chem 7: 08/04/20 04:17 08/04/20 04:17 Labs: Abnormal Lab Results - Last 24 Hours (Table) 08/04/20 08/04/20 Range/Units 04:17 20:35 POC Glucose (mg/dL) 107 H (75-99) mg/dL Cholesterol 225 H (0-200) mg/dL HDL Cholesterol 111.0 H (40.0-60.0) mg/dL Assessment and Plan Assessment: Atypical chest pain and palpitations. Ruled out ACS. Intermittent symptoms of palpitations and chest heaviness for more than 1 month and cardiac workup is in progress as an outpatient. Multiple sclerosis with recent flare and steroid course until one week ago Migraine headaches IBS Overactive bladder Chronic back pain Gastrojejunal ulcer history Asthma not in exacerbation Anxiety/depression Multiple sclerosis and bilateral lower extremity weakness uses walker. Morbid obesity BMI 44.8 DVT prophylaxis Plan: Patient was admitted to hospital with left upper retrosternal pain. Constant dull pain likely due to musculoskeletal in origin. Rule out ACS. Unlikely PE. Denied any pleuritic pain.. D-dimer is not elevated. Due to history of recurrent symptoms patient has been worked up as an outpatient. Event monitor as per cardiology recommendations. 2-D echocardiography was ordered. Continue with home medications and follow up closely. Continue with PPI and DVT prophylaxis. Further recommendations based on the clinical course.
[2020-08-06] MEDS: LEVOTHYROXINE 50 MCG TAB PO SCH (05:34)
[2020-08-06] MEDS: PANTOPRAZOLE 40 MG TABLET PO SCH (07:35)
[2020-08-06] MEDS: GABAPENTIN 300 MG CAP PO SCH (07:35)
[2020-08-06] MEDS: HYDROcodone/APAP 10-325MG 1 EACH TAB PO SCH (07:35)
[2020-08-06] MEDS: BACLOFEN 10 MG TAB PO SCH (07:35)
[2020-08-06] MEDS: busPIRone HCl 5 MG TAB PO SCH (07:36)
[2020-08-06] MEDS: LORATADINE 10 MG TAB PO SCH (07:36)
[2020-08-06] MEDS: MULTIVITAMINS, PEDIATRIC 1 EACH CHEWABLE PO SCH (07:36)
[2020-08-06] MEDS: ASPIRIN 325 MG TAB PO SCH (07:36)
[2020-08-06] MEDS: HEPARIN SODIUM,PORCINE 5,000 UNIT/ML 1 ML VIAL SQ SCH (07:37)
[2020-08-06] MEDS: DESVENLAFAXINE SUCCINATE 50 MG TAB.ER.24H PO SCH (07:37)
[2020-08-06] MEDS: CROMOLYN SODIUM BOTH EYES SCH (07:37)
[2020-08-06] MEDS: KETOTIFEN 0.025% OPHTH DROPS 5 ML BTL BOTH EYES SCH (07:38)
[2020-08-06] MEDS: FLUTICASONE 220 MCG INHALER INHALATION SCH (07:39)
[2020-08-06] MEDS: BUTALB/APAP/CAFF 50-325-40MG TAB PO PRN (07:40)
[2020-08-06 07:58] VITALS: BP 90/58; PULSE 75; RESP 16; TEMP 97.9
[2020-08-06] MEDS: ONDANSETRON 4 MG/2 ML VIAL IVP PRN (09:00)
--- NOTE | 2020-08-06 09:50 | ECHOF ---
Referral Reason:Chest pain MEASUREMENTS -------- HEIGHT: 170.2 cm WEIGHT: 158.8 kg BP: RVIDd: 3.3 cm (< 3.3) IVSd: 1.1 cm (0.6 - 1.1) LVIDd: 5.2 cm (3.9 - 5.3) LVPWd: 1.0 cm (0.6 - 1.1) IVSs: 1.5 cm LVIDs: 4.2 cm LVPWs: 1.6 cm LA Diam: 3.8 cm (2.7 - 3.8) LAESV Index (A-L): 26.82 ml/m Ao Diam: 2.9 cm (2.0 - 3.7) AV Cusp: 2.6 cm (1.5 - 2.6) MV EXCURSION: 16.659 mm (> 18.000) MV EF SLOPE: 177 mm/s (70 - 150) EPSS: 0.6 cm MV E Emerson: 0.94 m/s MV DecT: 260 ms MV A Emerson: 0.68 m/s MV E/A Ratio: 1.37 FINDINGS -------- Sinus rhythm. This was a technically adequate study. The left ventricular size is normal. There is borderline concentric left ventricular hypertrophy. Overall left ventricular systolic function is normal with, an EF between 55 - 60 %. The right ventricle is mildly enlarged. Normal LA size by volume 22+/-6 ml/m2. The right atrium is normal in size. Interatrial and interventricular septum intact. The aortic valve is trileaflet, and appears structurally normal. No aortic stenosis or regurgitation. The mitral valve is normal. The tricuspid valve appears structurally normal. Unable to estimate RVSP due to inadequate TR jet s pectral doppler profile. There is no pulmonic regurgitation present. The aortic root size is normal. Normal inferior vena cava with normal inspiratory collapse consistent with estimated right atrial pre ssure of 5 mmHg. There is no pericardial effusion. CONCLUSIONS -------- 1. The left ventricular size is normal. 2. There is borderline concentric left ventricular hypertrophy. 3. The right ventricle is mildly enlarged. 4. Normal LA size by volume 22+/-6 ml/m2. 5. There is no pericardial effusion. [employer]: Adri Olivas RDCS
--- NOTE | 2020-08-07 06:14 | DS ---
DISCHARGE SUMMARY DATE OF DISCHARGE: 08/06/2020 FINAL DIAGNOSIS: 1. Chest pain, myocardial infarction ruled out. 2. Intermittent symptoms of palpitations. 3. Multiple sclerosis with recent flare-up. 4. History of migraine headaches. 5. History irritable bowel syndrome. 6. Overactive bladder. 7. Chronic back pain. 8. Degenerative joint disease. 9. History of asthma, not in exacerbation. 10.Anxiety, depression. 11.Multiple sclerosis with bilateral lower extremity weakness and uses walker. 12.Morbid obesity with body mass index of 44.8. 13.Deep vein thrombosis prophylaxis. DISCHARGE DISPOSITION: The patient will be discharged in stable condition with guarded prognosis. Discharge cleared by Cardiology. HISTORY OF PRESENT ILLNESS: This is a 25-year-old woman with past medical history of multiple medical problems was admitted with chest pain. MS ruled out. Troponins are negative. Cardiology saw the patient and recommend outpatient followup. PHYSICAL EXAMINATION: VITAL SIGNS: Stable. HEART: S1 and S2, muffled. ABDOMEN: Soft, no tenderness. No masses palpable. NERVOUS: No focal deficits. DISCHARGE INSTRUCTIONS: Discharge diet is cardiac. Activity is limited until followup. Follow up with Dr. Torres in 2-3 days. Follow up with Cardiology as recommended with outpatient stress test. MEDICATIONS: 1. Abilify 2 mg q.h.s. 2. Abilify 5 mg q.h.s. 3. Buspirone 15 mg p.o. t.i.d. 4. Carafate 1 g p.o. b.i.d. 5. Catapres 0.1 mg q.h.s. 6. Claritin 10 mg p.o. daily. 7. Cromolyn 1 drop both eyes. 8. Emgality 120 mg subcutaneously q.30 days. 9. Fioricet 1 tablet t.i.d. p.r.n. 10.Fluticasone 2 puffs b.i.d. 11.Gabapentin 600 mg p.o. q.i.d. 12.Lioresal 20 mg p.o. t.i.d. 13.Meclizine 25 mg p.o. t.i.d. 14.Pediatric multivitamin. 15.Hydrocodone 1 tablet p.o. t.i.d. 16.Oxybutynin 10 mg p.o. q.h.s. 17.Prazosin 5 mg q.h.s. 18.Pristiq ER 100 mg p.o. daily. 19.Provigil 200 mg p.o. b.i.d. 20.Refresh eye drops. 21.Relpax 40 mg subcu daily. 22.Seroquel 25 mg q.h.s. 24.Singulair 10 mg q.h.s. 25.Pseudoephedrine 120 mg p.o. b.i.d. 26.Synthroid 50 mcg p.o. daily. 27.Vitamin D2 50,000 daily. 28.Zaditor 1 drop both eyes. 29.Zofran 8 mg q.i.d. p.r.n. 30.Zonisamide 200 mg q.h.s. 31.Aspirin 81 mg p.o. daily. 32.Omeprazole 40 mg p.o. daily. Once again the patient will be discharged in a stable condition with a guarded prognosis. MMJOCELYNL / GEOVANNIN: [id number] / ROBIN
== END 2020-08-06 12:25 | disposition home or self-care (01) ==
LOC: EC 03:31 → 6NMEDSUR 06:32
PROVIDERS: ADMIT Hospitalist; ATTEND Hospitalist
DX: R07.2 Precordial pain (principal); R00.2 Palpitations; G35 Multiple sclerosis; M54.9 Dorsalgia, unspecified; G89.29 Other chronic pain; N32.81 Overactive bladder; J45.909 Unspecified asthma, uncomplicated; M19.90 Unspecified osteoarthritis, unspecified site; E66.01 Morbid (severe) obesity due to excess calories; Z68.41 Body mass index [BMI] 40.0-44.9, adult; R26.2 Difficulty in walking, not elsewhere classified; K58.9 Irritable bowel syndrome, unspecified; G43.909 Migraine, unspecified, not intractable, without status migrainosus; F32.9 Major depressive disorder, single episode, unspecified; F41.9 Anxiety disorder, unspecified; Z99.89 Dependence on other enabling machines and devices; Z79.890 Hormone replacement therapy; Z79.899 Other long term (current) drug therapy; Z79.51 Long term (current) use of inhaled steroids; Z91.010 Allergy to peanuts; Z88.5 Allergy status to narcotic agent; Z98.84 Bariatric surgery status; Z90.49 Acquired absence of other specified parts of digestive tract; Z87.11 Personal history of peptic ulcer disease; Z83.3 Family history of diabetes mellitus; Z20.822 Contact with and (suspected) exposure to COVID-19
CPT/HCPCS: 96376; 96372 ×3; 96374; 93005 ×2; 96361; 99285; 36415; 94640 ×4; 93306; 85379; 80061; 80053; 84443; 83735; 84484; 85025; 85610; 85730; 87635; 71046; G0378 ×3; J1644 ×3; J2405 ×2

== ENCOUNTER 2020-10-13 21:53 | Emergency (ER) | payer OTHER ==
[2020-10-13 22:41] VITALS: TEMP 98.3
[2020-10-13] MEDS ORDERED: NITROGLYCERIN SL TABS 0.4 MG TAB SUBLINGUAL STA (23:40)
[2020-10-13] MEDS ORDERED: SODIUM CHLORIDE 0.9% 500 ML 500 ML IV STA (23:40)
[2020-10-13] MEDS ORDERED: HYDROmorphone 0.5 MG/0.5 ML SYRINGE IVP STA (23:41)
[2020-10-14 00:20] LABS: Basophils % (A) 0 %; Eosinophils # (A) 0.1 k/uL (0-0.7); Eosinophils % (A) 2 %; HCT 39.4 % (34.0-46.0); HGB 12.7 gm/dL (11.4-16.0); Lymphocytes # (A) 1.4 k/uL (1.0-4.8); Lymphocytes % (A) 18 %; MCH 30.7 pg (25.0-35.0); MCHC 32.2 g/dL (31.0-37.0); MCV 95.5 fL (80.0-100.0); Mean Platelet Volume 9.9; Monocytes # (A) 0.4 k/uL (0-1.0); Monocytes % (A) 5 %; Neutrophils # (A) 5.9 k/uL (1.3-7.7); Neutrophils % (A) 74 %; Platelet Count 205 k/uL (150-450); RBC 4.13 m/uL (3.80-5.40); RDW 13.5 % (11.5-15.5); WBC 7.9 k/uL (3.8-10.6)
[2020-10-14 00:23] VITALS: RESP 18
--- NOTE | 2020-10-14 00:25 | XR ---
EXAMINATION TYPE: XR chest 2V DATE OF EXAM: 10/14/2020 COMPARISON: 08/04/2020 HISTORY: Chest pain TECHNIQUE: FINDINGS: Heart and mediastinum are normal. Lungs are clear. Diaphragm is normal. Bony thorax is norm al. IMPRESSION: Normal chest. No change.
[2020-10-14 00:43] LABS: ALT 12 U/L (4-34); AST 25 U/L (14-36); African American GFR (CKD) >90 (>60 ml/min/1.73 sqM); Albumin 4.2 g/dL (3.5-5.0); Alkaline Phosphatase 75 U/L (38-126); Anion Gap 5 mmol/L; Blood Urea Nitrogen 9 mg/dL (7-17); Calcium 9.6 mg/dL (8.4-10.2); Carbon Dioxide 25 mmol/L (22-30); Chloride 109 mmol/L (98-107); Glucose 92 mg/dL (74-99); Lipase 137 U/L (23-300); Magnesium 1.9 mg/dL (1.6-2.3); Non-African American GFR(CKD) >90 (>60 ml/min/1.73 sqM); Potassium 4.4 mmol/L (3.5-5.1); Sodium 139 mmol/L (137-145); Total Bilirubin 0.3 mg/dL (0.2-1.3); Total Protein 6.5 g/dL (6.3-8.2)
[2020-10-14 00:50] LABS: INR 0.9 (<1.2); Partial Thromboplastin Time 22.1 sec (22.0-30.0); Prothrombin Time 9.8 sec (9.0-12.0)
[2020-10-14] MEDS ORDERED: HYDROmorphone 1 MG/ML 1 ML SYRINGE IVP STA (01:26)
--- NOTE | 2020-10-14 01:27 | ED ---
General Adult HPI - General Chief complaint: Chest Pain Stated complaint: chest pressure Time Seen by Provider: 10/13/20 23:03 Source: patient Mode of arrival: wheelchair Limitations: no limitations - History of Present Illness Initial comments: 25 year-old female patient presents to the emergency department for evaluation of left sided chest pain that started about 2 hours ago. States it feels like there is a fist squeezing her heart. States she has been somewhat short of breath. Denies radiation fo the pain through to her back. States she has felt nauseated, no vomiting. Reports sweats. No dizziness or weakness. Reports having issues with chest pain on and off for the last couple of months. States that she does have a stress test scheduled for 10/17/20, cardiology appointment on 10/24/20. States she was at rest when the symptoms started. Denies any increased physical activity or heavy lifting. Patient denies any recent rash, fever, chills, c ough, abdominal pain, nausea, vomiting, diarrhea, constipation, numbness, tingling, dizziness, weakness, hematuria, dysuria, urinary urgency, urinary frequency, headache, visual changes, or any other complaints. - Related Data Home Medications Medication Instructions Recorded Confirmed Zonisamide 200 mg PO HS 04/06/15 08/04/20 [place] Oral Contraceptive 1 tab PO HS 09/08/18 08/04/20 Butalb/APAP/Caff 50-325-40Mg 1 tab PO TID PRN 10/05/18 08/04/20 [Fioricet 50-325-40] Ergocalciferol (Vitamin D2) 50,000 unit PO MO 10/05/18 08/04/20 [Vitamin D2] Baclofen [Lioresal] 20 mg PO TID 03/21/19 08/04/20 Galcanezumab-Gnlm [Emgality Pen] 120 mg SQ Q30D 03/21/19 08/04/20 Loratadine [Claritin] 10 mg PO DAILY 03/21/19 08/04/20 Meclizine HCl 25 mg PO TID 03/21/19 08/04/20 cloNIDine HCL [Catapres] 0.1 mg PO HS 03/21/19 08/04/20 modafiniL [Provigil] 200 mg PO BID 03/21/19 08/04/20 ondansetron HCL [Zofran] 8 mg PO TID PRN 03/21/19 08/04/20 ARIPiprazole [Abilify] 2 mg PO HS 07/04/20 08/04/20 Carboxymethylcellulose Sodium 1 drop BOTH EYES QID PRN 07/04/20 08/04/20 [Refresh Tears] Cromolyn Sodium 1 drop BOTH EYES BID 07/04/20 08/04/20 Desvenlafaxine [Pristiq ER] 100 mg PO DAILY 07/04/20 08/04/20 Eletriptan HBr [Relpax] 40 mg PO DAILY PRN 07/04/20 08/04/20 Fluticasone Propionate [Flovent 2 puff INHALATION RT-BID 07/04/20 08/04/20 Hfa 220 mcg] Gabapentin 600 mg PO QID 07/04/20 08/04/20 HYDROcodone/APAP 10-325MG [[place] 1 tab PO TID 07/04/20 08/04/20 10-325] Ketotifen 0.025% Ophth Soln 1 drop BOTH EYES BID 07/04/20 08/04/20 [Zaditor] Montelukast Sodium [Singulair] 10 mg PO HS 07/04/20 08/04/20 Oxybutynin Chloride [Oxybutynin 10 mg PO HS 07/04/20 08/04/20 Chloride ER] Pediatric Multivitamin No.30 2 tab PO DAILY 07/04/20 08/04/20 [Multivitamin Children's Gummies] Prazosin HCl 5 mg PO HS 07/04/20 08/04/20 Pseudoephedrine 12Hr [Sudafed 12 120 mg PO Q12H PRN 07/04/20 08/04/20 Hour] Sucralfate [Carafate] 1 gm PO BID 07/04/20 08/04/20 ARIPiprazole [Abilify] 5 mg PO HS 08/04/20 08/04/20 Levothyroxine Sodium [Synthroid] 50 mcg PO DAILY 08/04/20 08/04/20 QUEtiapine [SEROquel] 25 mg PO HS 08/04/20 08/04/20 busPIRone HCL 15 mg PO TID 08/04/20 08/04/20 Previous Rx's Medication Instructions Recorded Omeprazole 40 mg PO DAILY #90 capsule. 03/26/18 Aspirin EC [Ecotrin Low Dose] 81 mg PO DAILY #30 tablet. 08/06/20 Allergies Allergy/AdvReac Type Severity Reaction Status Date / Time peanut Allergy Anaphylaxis Verified 10/13/20 22:41 aspartame AdvReac Diarrhea Verified 10/13/20 22:41 codeine AdvReac Dyspnea Verified 10/13/20 22:41 fingolimod [From [employer]] AdvReac Abdominal Verified 10/13/20 22:41 Pain ibuprofen AdvReac Abdominal Verified 10/13/20 22:41 Pain morphine AdvReac Dyspnea Verified 10/13/20 22:41 Review of Systems ROS Statement: Those systems with pertinent positive or pertinent negative responses have been documented in the HPI. ROS Other: All systems not noted in ROS Statement are negative. 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 Past Anesthesia/Blood Transfusion Reactions: No Reported Reaction Past Psychological History: Anxiety, Depression Smoking Status: Never smoker Past Alcohol Use History: None Reported Past Drug Use History: None Reported - Past Family History Mother Family Medical History: Diabetes Mellitus General Exam Limitations: no limitations General appearance: alert, in no apparent distress, other (Physical well- developed, well-nourished adult female patient in no acute distress. Vital signs upon presentation To 98.3F, pulse 69, respirations 20, blood pressure 155/95, pulse ox 100% on room air.) Eye exam: Present: normal appearance, PERRL, EOMI. Absent: scleral icterus, conjunctival injection, periorbital swelling ENT exam: Present: normal exam, normal oropharynx, mucous membranes moist Respiratory exam: Present: normal lung sounds bilaterally. Absent: respiratory distress, wheezes, rales, rhonchi, stridor, chest wall tenderness Cardiovascular Exam: Present: regular rate, normal rhythm, normal heart sounds. Absent: systolic murmur, diastolic murmur, rubs, gallop, clicks GI/Abdominal exam: Present: soft, normal bowel sounds. Absent: distended, tenderness, guarding, rebound, rigid Neurological exam: Present: alert, oriented X3, CN II-XII intact Psychiatric exam: Present: normal affect, normal mood Skin exam: Present: warm, dry, intact, normal color. Absent: rash Course Vital Signs 10/13/20 10/14/20 10/14/20 22:38 00:20 01:55 Temperature 98.3 F Pulse Rate 69 67 72 Respiratory 20 18 18 Rate Blood Pressure 155/95 105/68 106/67 O2 Sat by Pulse 100 97 98 Oximetry EKG Findings - EKG Comments: EKG Findings:: EKG obtained at 003 shows normal sinus rhythm with a ventricular rate of 67, UT interval 154, QRS duration 86, QT 626, QTc 450. No evidence of ST elevation or depression. Medical Decision Making - Medical Decision Making 25-year-old female patient presented to the emergency department today for evaluation of left-sided chest pain. Physical examination did reveal clear equal lung sounds. Abdomen soft and nontender. EKG showed sinus rhythm. Chest x-ray is negative. Labs reviewed and are unremarkable. Troponins negative. Patient did have improvement of pain with Dilaudid. Upon reevaluation she is resting comfortably in bed. I did discuss findings and results with her. She does have counseled being discharged home. She is instructed follow up for her distress test and cardiology appointment as she has planned. She is instructed to call on Thursday inform them of her new symptoms this . Return parameters were discussed in detail. She verbalizes understanding and agrees with this plan. Case discussed with my attending Dr. Jiménez. - Lab Data Result diagrams: 10/13/20 23:49 10/13/20 23:49 Lab Results 10/13/20 10/13/20 10/13/20 Range/Units 23:49 23:49 23:49 WBC 7.9 (3.8-10.6) k/uL RBC 4.13 (3.80-5.40) m/uL Hgb 12.7 (11.4-16.0) gm/dL Hct 39.4 (34.0-46.0) % MCV 95.5 (80.0-100.0) fL MCH 30.7 (25.0-35.0) pg MCHC 32.2 (31.0-37.0) g/dL RDW 13.5 (11.5-15.5) % Plt Count 205 (150-450) k/uL MPV 9.9 Neutrophils % 74 % Lymphocytes % 18 % Monocytes % 5 % Eosinophils % 2 % Basophils % 0 % Neutrophils # 5.9 (1.3-7.7) k/uL Lymphocytes # 1.4 (1.0-4.8) k/uL Monocytes # 0.4 (0-1.0) k/uL Eosinophils # 0.1 (0-0.7) k/uL Basophils # 0.0 (0-0.2) k/uL PT 9.8 (9.0-12.0) sec INR 0.9 (<1.2) APTT 22.1 (22.0-30.0) sec Sodium 139 (137-145) mmol/L Potassium 4.4 (3.5-5.1) mmol/L Chloride 109 H (98-107) mmol/L Carbon Dioxide 25 (22-30) mmol/L Anion Gap 5 mmol/L BUN 9 (7-17) mg/dL Creatinine 0.64 (0.52-1.04) mg/dL Est GFR (CKD-EPI)AfAm >90 (>60 ml/min/1.73 sqM) Est GFR (CKD-EPI)NonAf >90 (>60 ml/min/1.73 sqM) Glucose 92 (74-99) mg/dL Calcium 9.6 (8.4-10.2) mg/dL Magnesium 1.9 (1.6-2.3) mg/dL Total Bilirubin 0.3 (0.2-1.3) mg/dL AST 25 (14-36) U/L ALT 12 (4-34) U/L Alkaline Phosphatase 75 (38-126) U/L Troponin I (0.000-0.034) ng/mL Total Protein 6.5 (6.3-8.2) g/dL Albumin 4.2 (3.5-5.0) g/dL Lipase 137 (23-300) U/L 10/13/20 Range/Units 23:49 WBC (3.8-10.6) k/uL RBC (3.80-5.40) m/uL Hgb (11.4-16.0) gm/dL Hct (34.0-46.0) % MCV (80.0-100.0) fL MCH (25.0-35.0) pg MCHC (31.0-37.0) g/dL RDW (11.5-15.5) % Plt Count (150-450) k/uL MPV Neutrophils % % Lymphocytes % % Monocytes % % Eosinophils % % Basophils % % Neutrophils # (1.3-7.7) k/uL Lymphocytes # (1.0-4.8) k/uL Monocytes # (0-1.0) k/uL Eosinophils # (0-0.7) k/uL Basophils # (0-0.2) k/uL PT (9.0-12.0) sec INR (<1.2) APTT (22.0-30.0) sec Sodium (137-145) mmol/L Potassium (3.5-5.1) mmol/L Chloride (98-107) mmol/L Carbon Dioxide (22-30) mmol/L Anion Gap mmol/L BUN (7-17) mg/dL Creatinine (0.52-1.04) mg/dL Est GFR (CKD-EPI)AfAm (>60 ml/min/1.73 sqM) Est GFR (CKD-EPI)NonAf (>60 ml/min/1.73 sqM) Glucose (74-99) mg/dL Calcium (8.4-10.2) mg/dL Magnesium (1.6-2.3) mg/dL Total Bilirubin (0.2-1.3) mg/dL AST (14-36) U/L ALT (4-34) U/L Alkaline Phosphatase (38-126) U/L Troponin I <0.012 (0.000-0.034) ng/mL Total Protein (6.3-8.2) g/dL Albumin (3.5-5.0) g/dL Lipase (23-300) U/L - Radiology Data Radiology results: report reviewed, image reviewed Chest x-ray showed normal chest no change. Disposition Clinical Impression: Chest pain Disposition: HOME SELF-CARE Condition: Good Instructions (If sedation given, give patient instructions): Chest Pain (ED) Additional Instructions: Follow-up with the plating inspector as you have planned. Follow-up with your primary care physician for recheck in 1-2 days. Return for any new, worsening, or concerning symptoms. Is patient prescribed a controlled substance at d/c from ED?: No Referrals: Parminder Torres DO [Primary Care Provider] - 1-2 days Time of Disposition: 01:27
[2020-10-14 01:56] VITALS: BP 106/67; PULSE 72
== END 2020-10-14 02:02 | disposition home or self-care (01) ==
LOC: EC 21:53
DX: R07.89 Other chest pain (principal); R06.02 Shortness of breath; R11.0 Nausea; J45.909 Unspecified asthma, uncomplicated; K58.9 Irritable bowel syndrome, unspecified; F41.9 Anxiety disorder, unspecified; F32.9 Major depressive disorder, single episode, unspecified; Z79.82 Long term (current) use of aspirin; Z79.51 Long term (current) use of inhaled steroids
CPT/HCPCS: 36415; 93005; 80053; 83690; 83735; 84484; 85025; 85610; 85730; 71046; 99285; 96374; 96375; 96361 ×2; J1170 ×2

== ENCOUNTER 2020-10-15 19:39 | Inpatient (IN) | payer OTHER ==
[2020-10-15 21:41] LABS: Basophils % (A) 0 %; Eosinophils # (A) 0.2 k/uL (0-0.7); Eosinophils % (A) 2 %; HCT 38.5 % (34.0-46.0); HGB 12.9 gm/dL (11.4-16.0); Lymphocytes # (A) 1.5 k/uL (1.0-4.8); Lymphocytes % (A) 18 %; MCH 31.6 pg (25.0-35.0); MCHC 33.5 g/dL (31.0-37.0); MCV 94.4 fL (80.0-100.0); Mean Platelet Volume 9.6; Monocytes # (A) 0.4 k/uL (0-1.0); Monocytes % (A) 5 %; Neutrophils # (A) 6.4 k/uL (1.3-7.7); Neutrophils % (A) 75 %; Platelet Count 211 k/uL (150-450); RBC 4.08 m/uL (3.80-5.40); WBC 8.6 k/uL (3.8-10.6)
[2020-10-15 21:52] LABS: ALT 12 U/L (4-34); AST 22 U/L (14-36); African American GFR (CKD) >90 (>60 ml/min/1.73 sqM); Albumin 4.2 g/dL (3.5-5.0); Alkaline Phosphatase 78 U/L (38-126); Anion Gap 7 mmol/L; Blood Urea Nitrogen 8 mg/dL (7-17); Calcium 9.2 mg/dL (8.4-10.2); Carbon Dioxide 22 mmol/L (22-30); Chloride 110 mmol/L (98-107); Glucose 91 mg/dL (74-99); Magnesium 1.8 mg/dL (1.6-2.3); Non-African American GFR(CKD) >90 (>60 ml/min/1.73 sqM); Potassium 4.1 mmol/L (3.5-5.1); Sodium 139 mmol/L (137-145); Total Bilirubin 0.1 mg/dL (0.2-1.3); Total Protein 6.3 g/dL (6.3-8.2)
--- NOTE | 2020-10-15 21:52 | XR ---
EXAMINATION TYPE: XR chest 2V DATE OF EXAM: 10/15/2020 COMPARISON: 10/14/2020 HISTORY: Chest pain TECHNIQUE: FINDINGS: Heart and mediastinum are normal. Lungs are clear. Diaphragm is normal. Bony thorax is inta ct. IMPRESSION: Normal chest. No change.
--- NOTE | 2020-10-15 21:52 | ED ---
General Adult HPI - General Chief complaint: Chest Pain Stated complaint: Chest pain,high BP Time Seen by Provider: 10/15/20 21:21 Source: patient, RN notes reviewed, old records reviewed Mode of arrival: ambulatory Limitations: no limitations - History of Present Illness Initial comments: 25-year-old female presents for evaluation of chest pain. This is patient's second ER visit with chest pain in the past several days. She is currently scheduled to follow with cardiology regarding some ongoing issues including palpitations and intermittent chest pain. She has no known history of arrhythmia or CAD. Pain was central chest, didn't radiate to her shoulders and left arm. No associated nausea or diaphoresis. - Related Data Home Medications Medication Instructions Recorded Confirmed Zonisamide 200 mg PO HS 04/06/15 08/04/20 [place] Oral Contraceptive 1 tab PO HS 09/08/18 08/04/20 Butalb/APAP/Caff 50-325-40Mg 1 tab PO TID PRN 10/05/18 08/04/20 [Fioricet 50-325-40] Ergocalciferol (Vitamin D2) 50,000 unit PO MO 10/05/18 08/04/20 [Vitamin D2] Baclofen [Lioresal] 20 mg PO TID 03/21/19 08/04/20 Galcanezumab-Gnlm [Emgality Pen] 120 mg SQ Q30D 03/21/19 08/04/20 Loratadine [Claritin] 10 mg PO DAILY 03/21/19 08/04/20 Meclizine HCl 25 mg PO TID 03/21/19 08/04/20 cloNIDine HCL [Catapres] 0.1 mg PO HS 03/21/19 08/04/20 modafiniL [Provigil] 200 mg PO BID 03/21/19 08/04/20 ondansetron HCL [Zofran] 8 mg PO TID PRN 03/21/19 08/04/20 ARIPiprazole [Abilify] 2 mg PO HS 07/04/20 08/04/20 Carboxymethylcellulose Sodium 1 drop BOTH EYES QID PRN 07/04/20 08/04/20 [Refresh Tears] Cromolyn Sodium 1 drop BOTH EYES BID 07/04/20 08/04/20 Desvenlafaxine [Pristiq ER] 100 mg PO DAILY 07/04/20 08/04/20 Eletriptan HBr [Relpax] 40 mg PO DAILY PRN 07/04/20 08/04/20 Fluticasone Propionate [Flovent 2 puff INHALATION RT-BID 07/04/20 08/04/20 Hfa 220 mcg] Gabapentin 600 mg PO QID 07/04/20 08/04/20 HYDROcodone/APAP 10-325MG [[place] 1 tab PO TID 07/04/20 08/04/20 10-325] Ketotifen 0.025% Ophth Soln 1 drop BOTH EYES BID 07/04/20 08/04/20 [Zaditor] Montelukast Sodium [Singulair] 10 mg PO HS 07/04/20 08/04/20 Oxybutynin Chloride [Oxybutynin 10 mg PO HS 07/04/20 08/04/20 Chloride ER] Pediatric Multivitamin No.30 2 tab PO DAILY 07/04/20 08/04/20 [Multivitamin Children's Gummies] Prazosin HCl 5 mg PO HS 07/04/20 08/04/20 Pseudoephedrine 12Hr [Sudafed 12 120 mg PO Q12H PRN 07/04/20 08/04/20 Hour] Sucralfate [Carafate] 1 gm PO BID 07/04/20 08/04/20 ARIPiprazole [Abilify] 5 mg PO HS 08/04/20 08/04/20 Levothyroxine Sodium [Synthroid] 50 mcg PO DAILY 08/04/20 08/04/20 QUEtiapine [SEROquel] 25 mg PO HS 08/04/20 08/04/20 busPIRone HCL 15 mg PO TID 08/04/20 08/04/20 Previous Rx's Medication Instructions Recorded Omeprazole 40 mg PO DAILY #90 capsule. 03/26/18 Aspirin EC [Ecotrin Low Dose] 81 mg PO DAILY #30 tablet. 08/06/20 Allergies Allergy/AdvReac Type Severity Reaction Status Date / Time peanut Allergy Anaphylaxis Verified 10/15/20 19:51 aspartame AdvReac Diarrhea Verified 10/15/20 19:51 codeine AdvReac Dyspnea Verified 10/15/20 19:51 fingolimod [From [employer]] AdvReac Abdominal Verified 10/15/20 19:51 Pain ibuprofen AdvReac Abdominal Verified 10/15/20 19:51 Pain morphine AdvReac Dyspnea Verified 10/15/20 19:51 Review of Systems ROS Statement: Those systems with pertinent positive or pertinent negative responses have been documented in the HPI. ROS Other: All systems not noted in ROS Statement are negative. 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 Past Anesthesia/Blood Transfusion Reactions: No Reported Reaction Past Psychological History: Anxiety, Depression Smoking Status: Never smoker Past Alcohol Use History: None Reported Past Drug Use History: None Reported - Past Family History Mother Family Medical History: Diabetes Mellitus General Exam Limitations: no limitations General appearance: alert, in no apparent distress Head exam: Present: atraumatic, normocephalic Eye exam: Present: normal appearance, PERRL ENT exam: Present: normal exam Neck exam: Present: normal inspection. Absent: tenderness, meningismus Respiratory exam: Present: normal lung sounds bilaterally. Absent: respiratory distress Cardiovascular Exam: Present: regular rate, normal rhythm GI/Abdominal exam: Present: soft. Absent: distended, tenderness, guarding Extremities exam: Present: normal inspection, normal capillary refill. Absent: pedal edema, calf tenderness Neurological exam: Present: alert, oriented X3, CN II-XII intact. Absent: motor sensory deficit Psychiatric exam: Present: normal affect, normal mood Skin exam: Present: warm, dry, intact. Absent: cyanosis, diaphoretic Course Vital Signs 10/15/20 19:48 Temperature 98.9 F Pulse Rate 89 Respiratory 20 Rate Blood Pressure 155/102 O2 Sat by Pulse 98 Oximetry EKG Findings - EKG Comments: EKG Findings:: EKG: Normal sinus rhythm, rate of 78, GA interval 154, QRS d uration 84, QTC 437, no ST segment elevation Medical Decision Making - Medical Decision Making 25-year-old with recurrent chest pain. Scheduled for an outpatient stress test. Patient is coming in with concerns as her chest pain is more persistent and worsening. She has EKG showing sinus rhythm without ST segment elevation or chest x-rays negative for acute cardiopulmonary disease. Initial troponin is negative. Patient will be kept in observation for serial cardiac enzymes, telemetry, cardiology consultation. - Lab Data Result diagrams: 10/15/20 21:32 10/15/20 21:32 Lab Results 10/15/20 10/15/20 10/15/20 Range/Units 21:32 21:32 21:32 WBC 8.6 (3.8-10.6) k/uL RBC 4.08 (3.80-5.40) m/uL Hgb 12.9 (11.4-16.0) gm/dL Hct 38.5 (34.0-46.0) % MCV 94.4 (80.0-100.0) fL MCH 31.6 (25.0-35.0) pg MCHC 33.5 (31.0-37.0) g/dL RDW 13.0 (11.5-15.5) % Plt Count 211 (150-450) k/uL MPV 9.6 Neutrophils % 75 % Lymphocytes % 18 % Monocytes % 5 % Eosinophils % 2 % Basophils % 0 % Neutrophils # 6.4 (1.3-7.7) k/uL Lymphocytes # 1.5 (1.0-4.8) k/uL Monocytes # 0.4 (0-1.0) k/uL Eosinophils # 0.2 (0-0.7) k/uL Basophils # 0.0 (0-0.2) k/uL Sodium 139 (137-145) mmol/L Potassium 4.1 (3.5-5.1) mmol/L Chloride 110 H (98-107) mmol/L Carbon Dioxide 22 (22-30) mmol/L Anion Gap 7 mmol/L BUN 8 (7-17) mg/dL Creatinine 0.71 (0.52-1.04) mg/dL Est GFR (CKD-EPI)AfAm >90 (>60 ml/min/1.73 sqM) Est GFR (CKD-EPI)NonAf >90 (>60 ml/min/1.73 sqM) Glucose 91 (74-99) mg/dL Calcium 9.2 (8.4-10.2) mg/dL Magnesium 1.8 (1.6-2.3) mg/dL Total Bilirubin 0.1 L (0.2-1.3) mg/dL AST 22 (14-36) U/L ALT 12 (4-34) U/L Alkaline Phosphatase 78 (38-126) U/L Troponin I <0.012 (0.000-0.034) ng/mL Total Protein 6.3 (6.3-8.2) g/dL Albumin 4.2 (3.5-5.0) g/dL Disposition Clinical Impression: Chest pain Disposition: ADMITTED IP TO THIS [facility] Condition: Stable Is patient prescribed a controlled substance at d/c from ED?: No Referrals: Parminder Torres DO [Primary Care Provider] - 1-2 days Time of Disposition: 22:45 Decision to Admit Reason: Admit from EC Decision Date: 10/15/20 Decision Time: 22:45
[2020-10-15] MEDS ORDERED: NALOXONE 0.4 MG/ML 1 ML VIAL IV PRN (22:42)
[2020-10-15] MEDS ORDERED: ASPIRIN 325 MG TAB PO STA (22:45)
[2020-10-16 00:48] LABS: INR 0.9 (<1.2)
[2020-10-16 01:05] LABS: Partial Thromboplastin Time 21.6 sec (22.0-30.0)
[2020-10-16] MEDS: HYDROcodone/APAP 10-325MG 1 EACH TAB PO SCH ×4 (01:28→22:19)
[2020-10-16] MEDS ORDERED: MORPHINE SULFATE 4 MG/ML SYRINGE IVP PRN (03:31)
--- NOTE | 2020-10-16 08:21 | P.CRDCN ---
History of Present Illness Consult date: 10/16/20 Chief complaint: Palpitation History of present illness: This is a 25-year-old female patient with no significant past medical history besides asthma who follows with Dr. Grier in the office regularly presented to the emergency department complaining of palpitation. The patient was in her usual state of health until yesterday when she was at home and suddenly started experiencing palpitation. Also she developed chest discomfort. She checked her blood pressure and that came in to be elevated also it was associated was increasing in her heart rate and because of that she decided to come to the emergency department. Currently she is asymptomatic. With her episode yesterday she did not have any feeling of dizziness or lightheadedness or any presyncope or syncope. The EKG today showed sinus rhythm with nonspecific changes in V1 and V2. She underwent an echocardiogram 6 months ago and that revealed mildly dilated right ventricle with normal left ventricular systolic function. No history of sudden cardiac or syncope in the family. The cardiac enzymes are unremarkable. The chest x-ray did not show any acute abnormalities. 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 Past Anesthesia/Blood Transfusion Reactions: No Reported Reaction Past Psychological History: Anxiety, Depression Smoking Status: Never smoker Past Alcohol Use History: None Reported Past Drug Use History: None Reported - Past Family History Mother Family Medical History: Diabetes Mellitus Medications and Allergies Home Medications Medication Instructions Recorded Confirmed Type Zonisamide 100 mg PO BID 04/06/15 10/15/20 History Omeprazole 40 mg PO DAILY #90 capsule. 03/26/18 10/15/20 Rx Setlakin Oral Contraceptive 1 tab PO HS 09/08/18 10/15/20 History Butalb/APAP/Caff 50-325-40Mg 1 tab PO TID PRN 10/05/18 10/15/20 History [Fioricet 50-325-40] Ergocalciferol (Vitamin D2) 50,000 unit PO MO 10/05/18 10/15/20 History [Vitamin D2] Baclofen [Lioresal] 20 mg PO TID 03/21/19 10/15/20 History Galcanezumab-Gnlm [Emgality Pen] 120 mg SQ Q30D 03/21/19 10/15/20 History Loratadine [Claritin] 10 mg PO DAILY 03/21/19 10/15/20 History Meclizine HCl 25 mg PO TID 03/21/19 10/15/20 History modafiniL [Provigil] 200 mg PO BID 03/21/19 10/15/20 History ondansetron HCL [Zofran] 8 mg PO TID PRN 03/21/19 10/15/20 History Cromolyn Sodium 1 drop BOTH EYES BID 07/04/20 10/15/20 History Desvenlafaxine [Pristiq ER] 100 mg PO DAILY 07/04/20 10/15/20 History Gabapentin 600 mg PO QID 07/04/20 10/15/20 History HYDROcodone/APAP 10-325MG [[place] 1 tab PO TID 07/04/20 10/15/20 History 10-325] Montelukast Sodium [Singulair] 10 mg PO HS 07/04/20 10/15/20 History Prazosin HCl 5 mg PO HS 07/04/20 10/15/20 History Pseudoephedrine 12Hr [Sudafed 12 120 mg PO Q12H PRN 07/04/20 10/15/20 History Hour] Sucralfate [Carafate] 1 gm PO BID 07/04/20 10/15/20 History ARIPiprazole [Abilify] 5 mg PO DAILY 08/04/20 10/15/20 History Levothyroxine Sodium [Synthroid] 50 mcg PO DAILY 08/04/20 10/15/20 History QUEtiapine [SEROquel] 25 mg PO HS 08/04/20 10/15/20 History busPIRone HCL 15 mg PO TID 08/04/20 10/15/20 History Eletriptan HBr [Relpax] 40 mg PO BID PRN 10/15/20 10/15/20 History Ocrevus 1 dose IV Q180D 10/15/20 10/15/20 History Allergies Allergy/AdvReac Type Severity Reaction Status Date / Time lactose Allergy Unknown Verified 10/16/20 08:20 peanut Allergy Anaphylaxis Verified 10/15/20 23:09 aspartame AdvReac Diarrhea Verified 10/15/20 23:09 fingolimod [From GilenLoandesk] AdvReac Abdominal Verified 10/15/20 23:09 Pain ibuprofen AdvReac Abdominal Verified 10/15/20 23:09 Pain Physical Exam Vitals: Vital Signs Temp Pulse Resp BP Pulse Ox 10/16/20 05:04 98.4 F 74 18 120/62 97 10/15/20 22:49 98.9 F 78 16 146/94 97 10/15/20 19:48 98.9 F 89 20 155/102 98 Intake and Output 10/15/20 10/16/20 10/16/20 22:59 06:59 14:59 Other: Weight 163.293 kg - Constitutional General appearance: no acute distress - Respiratory Respiratory: bilateral: CTA - Cardiovascular Rhythm: regular Heart sounds: normal: S1, S2 Abnormal Heart Sounds: systolic murmur Results 10/15/20 21:32 10/15/20 21:32 Cardiac Enzymes 10/15/20 10/15/20 10/16/20 Range/Units 21:32 21:32 00:00 AST 22 (14-36) U/L Troponin I <0.012 <0.012 (0.000-0.034) ng/mL 10/16/20 Range/Units 03:29 AST (14-36) U/L Troponin I <0.012 (0.000-0.034) ng/mL Coagulation 10/16/20 Range/Units 00:18 PT 10.0 (9.0-12.0) sec APTT 21.6 L (22.0-30.0) sec CBC 10/15/20 Range/Units 21:32 WBC 8.6 (3.8-10.6) k/uL RBC 4.08 (3.80-5.40) m/uL Hgb 12.9 (11.4-16.0) gm/dL Hct 38.5 (34.0-46.0) % Plt Count 211 (150-450) k/uL Comprehensive Metabolic Panel 10/15/20 Range/Units 21:32 Sodium 139 (137-145) mmol/L Potassium 4.1 (3.5-5.1) mmol/L Chloride 110 H (98-107) mmol/L Carbon Dioxide 22 (22-30) mmol/L BUN 8 (7-17) mg/dL Creatinine 0.71 (0.52-1.04) mg/dL Glucose 91 (74-99) mg/dL Calcium 9.2 (8.4-10.2) mg/dL AST 22 (14-36) U/L ALT 12 (4-34) U/L Alkaline Phosphatase 78 (38-126) U/L Total Protein 6.3 (6.3-8.2) g/dL Albumin 4.2 (3.5-5.0) g/dL Current Medications Generic Name Dose Route Start Last Admin Trade Name Freq PRN Reason Stop Dose Admin Hydrocodone Bitart/Acetaminophen 1 each 10/16/20 01:15 10/16/20 01:28 Hydrocodone/Apap 10-325mg 1 Each Tab PO 1 each TID ABDOUL Administration Aspirin 325 mg 10/16/20 09:00 Aspirin 325 Mg Tab PO DAILY ABDOUL Morphine Sulfate 4 mg 10/16/20 03:31 10/16/20 03:42 Morphine Sulfate 4 Mg/Ml Syringe IVP 4 mg Q6HR PRN Administration Pain Naloxone HCl 0.2 mg 10/15/20 22:42 Naloxone 0.4 Mg/Ml 1 Ml Vial IV Q2M PRN Opioid Reversal Intake and Output 10/15/20 10/16/20 10/16/20 22:59 06:59 14:59 Other: Weight 163.293 kg 10/15/20 21:32 10/15/20 21:32 Assessment and Plan Assessment: Assessment #1 atypical chest discomfort #2 heart racing/sinus tachycardia #3 obesity Plan #1 the patient was ruled out for acute coronary event #2 I would obtain a d-dimer just to rule out PE which is unlikely #3 I am concerned about arrhythmogenic RV cardiomyopathy. I think the patient benefit from MRI as an outpatient #4 we will obtain an echocardiogram to have an idea about the RV size and function #5 start the patient on Toprol-XL #6 follow-up with the patient
[2020-10-16] MEDS: METOPROLOL SUCCINATE (ER) 25 MG TAB.ER.24H PO SCH (09:23)
[2020-10-16] MEDS: ASPIRIN 325 MG TAB PO SCH (09:23)
[2020-10-16] MEDS: BACLOFEN 10 MG TAB PO SCH ×2 (09:45→16:33)
[2020-10-16] MEDS ORDERED: SUMAtriptan succinate 50 MG TAB PO PRN (09:58)
[2020-10-16] MEDS ORDERED: BUTALB/APAP/CAFF 50-325-40MG TAB PO PRN (09:58)
[2020-10-16] MEDS ORDERED: NON FORMULARY DRUG (Desvenlafaxine [Pristiq Er] 100 MG Tab.Er.24h) PO SCH (10:00)
[2020-10-16] MEDS ORDERED: NON FORMULARY DRUG (Baclofen [Lioresal] 20 MG Tablet) PO SCH (10:00)
--- NOTE | 2020-10-16 10:48 | ECHOF ---
Referral Reason:Tachycardia MEASUREMENTS -------- HEIGHT: 170.2 cm WEIGHT: 163.3 kg BP: RVIDd: 3.3 cm (< 3.3) IVSd: 1.2 cm (0.6 - 1.1) LVIDd: 4.2 cm (3.9 - 5.3) LVPWd: 1.5 cm (0.6 - 1.1) IVSs: 1.7 cm LVIDs: 2.4 cm LVPWs: 2.1 cm Ao Diam: 3.2 cm (2.0 - 3.7) AV Cusp: 2.4 cm (1.5 - 2.6) LA Diam: 3.0 cm (2.7 - 3.8) MV EXCURSION: 17.007 mm (> 18.000) MV EF SLOPE: 147 mm/s (70 - 150) EPSS: 1.1 cm MV E Emerson: 0.82 m/s MV DecT: 233 ms MV A Emerson: 0.67 m/s MV E/A Ratio: 1.22 RAP: 5.00 mmHg RVSP: 12.89 mmHg FINDINGS -------- This was a technically difficult study with suboptimal views. The left ventricular size is normal. There is mild concentric left ventricular hypertrophy. Overa ll left ventricular systolic function is mildly impaired with, an EF between 45 - 50 %. Basal infer ior LV wall motion is hypokinetic. Basal inferoseptal LV wall motion is hypokinetic. The right ventricle is mildly enlarged. The left atrial size is normal. The right atrial size is normal. Lumason used The aortic valve is trileaflet and appears structurally normal. The mitral valve is normal. There is trace mitral regurgitation. The tricuspid valve appears structurally normal. Trace tricuspid regurgitation present. Right zonia tricular systolic pressure is normal at < 35 mmHg. There is no pulmonic regurgitation present. The aortic root size is normal. IVC Not well visulized. There is no pericardial effusion. CONCLUSIONS -------- 1. The left ventricular size is normal. 2. There is mild concentric left ventricular hypertrophy. 3. Overall left ventricular systolic function is mildly impaired with, an EF between 45 - 50 %. 4. Basal inferior LV wall motion is hypokinetic. 5. Basal inferoseptal LV wall motion is hypokinetic. 6. The right ventricle is mildly enlarged. 7. There is trace mitral regurgitation. 8. Trace tricuspid regurgitation present. 9. There is no pericardial effusion. [employer]: Melanie Irwin RDCS
[2020-10-16] MEDS: DESVENLAFAXINE SUCCINATE 50 MG TAB.ER.24H PO SCH (10:56)
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
[2020-10-16] MEDS: CROMOLYN SODIUM BOTH EYES SCH ×2 (15:50→21:40)
[2020-10-16] MEDS: busPIRone HCl 5 MG TAB PO SCH ×3 (15:51→21:04)
[2020-10-16] MEDS: MECLIZINE 25 MG TAB PO SCH ×3 (15:51→21:04)
[2020-10-16] MEDS: GABAPENTIN 300 MG CAP PO SCH ×3 (15:52→21:56)
[2020-10-16] MEDS: PANTOPRAZOLE 40 MG TABLET PO SCH (16:33)
[2020-10-16] MEDS: LEVOTHYROXINE 50 MCG TAB PO SCH (16:33)
--- NOTE | 2020-10-16 16:56 | P.HPIM ---
History of Present Illness H&P Date: 10/16/20 Chief Complaint: Heart racing History of presenting complaint: This is a very pleasant 25-year-old patient, follows with Dr. Torres. Chronic stable medical conditions include GERD, multiple sclerosis, asthma, daytime somnolence, hypothyroid, peripheral neuropathy, depression and anxiety, muscle spasms. She follows at [facility] for her anxiety depression medi cations and with for neurological and pain medications. Patient has generalized pain. Patient was scheduled for a stress test as an outpatient. Patient presents with a squeezing sensation in the heart as started yesterday. Also from the heart racing and thumping. Started around 4:30 PM yesterday. Presents rather constantly with some waxing and waning. Does not radiate. Not necessarily related to activity. No perspiration. No dizziness, lightheadedness. During these episodes present chair since admission patient has remained in sinus rhythm. Review of systems: GEN.: None EYES: None HEENT: None NECK: None RESPIRATORY: None CARDIOVASCULAR: As above GASTROINTESTINAL: None GENITOURINARY: None MUSCULOSKELETAL: Nonspecific joint pains, muscle spasms LYMPHATICS: None HEMATOLOGICAL: None PSYCHIATRY: None NEUROLOGICAL: Neuropathy Past medical history to include: Migraines, irritable bowel syndrome, overactive bladder, gastrojejunal ulcer, multiple sclerosis, does use a walker for some left leg weakness, anxiety depression Social history: Lives with her mother and brother. On disability. No history of smoking or alcohol. Does use a walker. Physical examination: VITAL SIGNS: 98.4, 77, 18, 118/79, 98% room air GENERAL: BMI 56.4, resting in bed, comfortable. EYES: Pupils equal. Conjunctiva normal. HEENT: External appearance of nose and ears normal, oral cavity grossly normal. NECK: JVD not raised; masses not palpable. HEART: First and second heart sounds are normal; no edema. LUNGS: Respiratory rate normal; clear to auscultation. ABDOMEN: Soft, nontender, liver spleen not palpable, no masses palpable. PSYCH: Alert and oriented x3; mood and affect normal. NEUROLOGICAL: Cranial nerves grossly intact; no facial asymmetry, power and sensation grossly intact. LYMPHATICS: No lymph nodes palpable in the axilla and neck INVESTIGATIONS, reviewed in the clinical context: WBC 8.6 hemoglobin 12.9 platelets 211 potassium 4.1 creatinine 0.71 Troponin I 3 negative Coronavirus [PCF] not detected 2-D echocardiogram: EF 45-50%, inferoseptal, inferior wall hypokinetic EKG tracing personally reviewed by me-normal sinus rhythm Chest x-ray film --clear Assessment and plan: -Patient presents with episodes of heart racing palpitation some squeezing sensation. Telemetry is unremarkable. 2-D echocardiogram is showing some wall motion abnormality. Will need further evaluation. Cardiac MRI will be beneficial. Telemetry -Morbid obesity BMI 56.4 Consult dietitian -Chronic muscle spasms Change baclofen to 20 mg every 8 when necessary -Depression and anxiety Continue with home medications -Intermittent asthma Continue with Singulair -Hypothyroid Continue with Synthroid -Peptic ulcer disease Continue with Protonix. DC Carafate as it'll interfere with absorption of other medications -Painful peripheral neuropathy from multiple sclerosis Continue with Neurontin -Irritable bowel syndrome -Overactive/spastic bladder -Chronic gait dysfunction with left lower extreme be weakness from multiple sclerosis, using walker Home medications renewed. Carafate discontinued. Baclofen changed to when necessary. Cardiology consulted. CT chest angiogram to rule out PE. Care was discussed with the patient. Questions answered. 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 Past Anesthesia/Blood Transfusion Reactions: No Reported Reaction Past Psychological History: Anxiety, Depression Smoking Status: Never smoker Past Alcohol Use History: None Reported Past Drug Use History: None Reported - Past Family History Mother Family Medical History: Diabetes Mellitus Medications and Allergies Home Medications Medication Instructions Recorded Confirmed Type Zonisamide 100 mg PO BID 04/06/15 10/15/20 History Omeprazole 40 mg PO DAILY #90 capsule. 03/26/18 10/15/20 Rx [place]akin Oral Contraceptive 1 tab PO HS 09/08/18 10/15/20 History Butalb/APAP/Caff 50-325-40Mg 1 tab PO TID PRN 10/05/18 10/15/20 History [Fioricet 50-325-40] Ergocalciferol (Vitamin D2) 50,000 unit PO MO 10/05/18 10/15/20 History [Vitamin D2] Baclofen [Lioresal] 20 mg PO TID 03/21/19 10/15/20 History Galcanezumab-Gnlm [Emgality Pen] 120 mg SQ Q30D 03/21/19 10/15/20 History Loratadine [Claritin] 10 mg PO DAILY 03/21/19 10/15/20 History Meclizine HCl 25 mg PO TID 03/21/19 10/15/20 History modafiniL [Provigil] 200 mg PO BID 03/21/19 10/15/20 History ondansetron HCL [Zofran] 8 mg PO TID PRN 03/21/19 10/15/20 History Cromolyn Sodium 1 drop BOTH EYES BID 07/04/20 10/15/20 History Desvenlafaxine [Pristiq ER] 100 mg PO DAILY 07/04/20 10/15/20 History Gabapentin 600 mg PO QID 07/04/20 10/15/20 History HYDROcodone/APAP 10-325MG [[place] 1 tab PO TID 07/04/20 10/15/20 History 10-325] Montelukast Sodium [Singulair] 10 mg PO HS 07/04/20 10/15/20 History Prazosin HCl 5 mg PO HS 07/04/20 10/15/20 History Pseudoephedrine 12Hr [Sudafed 12 120 mg PO Q12H PRN 07/04/20 10/15/20 History Hour] Sucralfate [Carafate] 1 gm PO BID 07/04/20 10/15/20 History ARIPiprazole [Abilify] 5 mg PO DAILY 08/04/20 10/15/20 History Levothyroxine Sodium [Synthroid] 50 mcg PO DAILY 08/04/20 10/15/20 History QUEtiapine [SEROquel] 25 mg PO HS 08/04/20 10/15/20 History busPIRone HCL 15 mg PO TID 08/04/20 10/15/20 History Eletriptan HBr [Relpax] 40 mg PO BID PRN 10/15/20 10/15/20 History Ocrevus 1 dose IV Q180D 10/15/20 10/15/20 History Allergies Allergy/AdvReac Type Severity Reaction Status Date / Time lactose Allergy Unknown Verified 10/16/20 08:20 peanut Allergy Anaphylaxis Verified 10/15/20 23:09 aspartame AdvReac Diarrhea Verified 10/15/20 23:09 fingolimod [From [place]] AdvReac Abdominal Verified 10/15/20 23:09 Pain ibuprofen AdvReac Abdominal Verified 10/15/20 23:09 Pain Physical Exam Vitals: Vital Signs Temp Pulse Resp BP Pulse Ox 10/16/20 09:00 98.4 F 77 18 118/79 98 10/16/20 05:04 98.4 F 74 18 120/62 97 10/15/20 22:49 98.9 F 78 16 146/94 97 10/15/20 19:48 98.9 F 89 20 155/102 98 Intake and Output 10/15/20 10/16/20 10/16/20 22:59 06:59 14:59 Other: Weight 163.293 kg Results CBC & Chem 7: 10/15/20 21:32 10/15/20 21:32 Labs: Abnormal Lab Results - Last 24 Hours (Table) 10/15/20 10/16/20 10/16/20 Range/Units 21:32 00:18 08:24 APTT 21.6 L (22.0-30.0) sec D-Dimer 0.79 H (<0.60) mg/L FEU Chloride 110 H (98-107) mmol/L Total Bilirubin 0.1 L (0.2-1.3) mg/dL
--- NOTE | 2020-10-16 17:37 | CT ---
EXAMINATION TYPE: CT chest angio for PE DATE OF EXAM: 10/16/2020 COMPARISON: None HISTORY: chest pain, difficulty breathing CT DLP: 1255 mGycm Automated exposure control for dose reduction was used. CONTRAST: Performed with IV Contrast, patient injected with 100 mL of Isovue 370. Images were obtained from the thoracic inlet to the diaphragm with IV contrast. There are 3-D post pr ocessed images. The heart and mediastinum appear normal. There are no hilar masses. There is no mediastinal adenopath y. Thoracic aorta is intact. There is no aneurysm or dissection. There is normal contrast opacification of the pulmonary arteries. There are no filling defects. The l ungs are clear of consolidation. There is no evidence of a pulmonary mass. There is no pleural effusi on. There is no pericardial effusion. There is intact thoracic spine. IMPRESSION: No evidence of pulmonary embolism. Negative exam. No suspicious pulmonary mass.
[2020-10-16] MEDS: ZONISAMIDE 100 MG CAP PO SCH ×2 (17:54→21:39)
[2020-10-16] MEDS: ARIPiprazole 5 MG TAB PO SCH (17:54)
[2020-10-16] MEDS: ONDANSETRON 4 MG TAB PO PRN (19:30)
[2020-10-16] MEDS: QUEtiapine 25 MG TAB PO SCH (21:04)
[2020-10-16] MEDS: MONTELUKAST 10 MG TAB PO SCH (21:04)
[2020-10-16] MEDS: PRAZOSIN 1 MG CAP PO SCH (21:40)
[2020-10-16] MEDS: [UNRECOGNIZED DRUG - OTHER] PO SCH (22:22)
[2020-10-17] MEDS: LEVOTHYROXINE 50 MCG TAB PO SCH (05:36)
[2020-10-17] MEDS: METOPROLOL SUCCINATE (ER) 25 MG TAB.ER.24H PO SCH (09:27)
[2020-10-17] MEDS: HYDROcodone/APAP 10-325MG 1 EACH TAB PO SCH ×3 (09:28→20:34)
[2020-10-17] MEDS: busPIRone HCl 5 MG TAB PO SCH ×3 (09:28→22:05)
[2020-10-17] MEDS: GABAPENTIN 300 MG CAP PO SCH ×3 (09:29→22:05)
[2020-10-17] MEDS: PANTOPRAZOLE 40 MG TABLET PO SCH (09:29)
[2020-10-17] MEDS: MECLIZINE 25 MG TAB PO SCH ×3 (09:29→22:05)
[2020-10-17] MEDS: ASPIRIN 325 MG TAB PO SCH (09:29)
[2020-10-17] MEDS: ARIPiprazole 5 MG TAB PO SCH (09:30)
[2020-10-17] MEDS: ONDANSETRON 4 MG TAB PO PRN (09:30)
[2020-10-17] MEDS: DESVENLAFAXINE SUCCINATE 50 MG TAB.ER.24H PO SCH (09:31)
[2020-10-17] MEDS: CROMOLYN SODIUM BOTH EYES SCH ×2 (09:31→20:36)
[2020-10-17] MEDS: ZONISAMIDE 100 MG CAP PO SCH ×2 (09:32→20:37)
[2020-10-17] MEDS: BACLOFEN 10 MG TAB PO PRN ×2 (10:34→16:49)
--- NOTE | 2020-10-17 10:37 | P.PN ---
Subjective This is a pleasant 25-year-old female past medical history significant for multiple sclerosis and asthma. She follows in the office with Dr. Lees. She is seen and examined sitting up eating breakfast in no acute distress. She states she did have an episode of palpitations last evening that was brief in nature. Telemetry tracings reviewed. She continues to maintain sinus mechanism with no evidence of arrhythmias. She also continues to have similar episodes of chest discomfort. She has no shortness of breath or dizziness. Echocardiogram obtained revealed mildly impaired LV systolic function with ejection fraction 45-50% with basal inferior and basal inferior septal wall motion abnormalities and mildly enlarged right ventricle. Blood pressure 113/74 heart rate 77 afebrile and maintaining oxygen saturation on room air. CTA negative for PE. GENERAL: Well-appearing, well-nourished and in no acute distress. Morbidly obese. NECK: Supple without JVD or thyromegaly. LUNGS: Breath sounds clear to auscultation bilaterally. Respiration equal and unlabored. No wheezes, rales or rhonchi. HEART: Regular rate and rhythm with systolic ejection murmur at the left sternal border, no rubs or gallops. S1 and S2 heard. EXTREMITIES: Normal range of motion, no edema. No clubbing or cyanosis. Peripheral pulses intact. ASSESSMENT Chest pain, atypical Palpitations Multiple sclerosis RV enlargement Morbid obesity, BMI 56 PLAN Ongoing concern for RV cardiomyopathy given her persistent RV enlargement on echo with EKG abnormalities. She will require an outpatient cardiac MRI, this will be coordinated as an outpatient with Dr. Lees. Given the wall motion abnormalities on TTE we will proceed with a stress test today. Unfortunately, she had breakfast and toprol xl this morning. Tomorrow we will do a dobutamins stress echo as she cannot ambulate on the treadmill due to MS. NPO after midnight tonight. Nurse Practitioner note has been reviewed, I agree with a documented findings and plan of care. Patient was seen and examined. Objective - Vital Signs Vital signs: Vital Signs Temp 98.1 F 10/17/20 07:00 Pulse 77 10/17/20 07:00 Resp 18 10/17/20 07:00 BP 113/74 10/17/20 07:00 Pulse Ox 96 10/17/20 09:11 Intake & Output 10/16/20 10/17/20 10/17/20 18:59 06:59 18:59 Weight 163.293 kg Other: # Voids 1 1 - Labs CBC & Chem 7: 10/15/20 21:32 10/15/20 21:32
--- NOTE | 2020-10-17 13:03 | P.PN ---
Progress Note - Text Progress Note Date: 10/17/20 Interval History: Patient was seen Sitting upright in her chair eating lunch. The patient is not reporting any suicidal or homicidal ideation, intention, and/or plan. She reports that she is "feeling better." She is not reporting any auditory or visual hallucinations. She is currently not reporting any paranoia or other delusions. She does report that she experienced 2-3 episodes of palpitations at bedtime. She reports that this is different from her normal panic. Despite the episodes of palpitations, the patient does not endorse any shortness of breath, diaphoresis, or chest pain when she is expressing these episodes. Patient reports that these episodes have caused her to wake up in the middle of the night. The patient is agreeable at this time to discontinue Abilify to decrease polypharmacy. Mental Status Exam: General Appearance: Patient appears to be stated age is alert, pleasant, and cooperative. Patient appears to have fair hygiene and grooming wearing hospital gown with fair eye contact. Obese body habitus. Behavior: Patient is calmly lying in bed without any agitated behavior. Speech: Patient's speech is fluent and nonpressured. Mood/Affect: Patient reports their mood is "feeling better", affect is congruent and euthymic. Suicidality/Homicidality: Patient denies having any suicidal or homicidal ideation intent or plan. Perceptions: Patient denies any visual hallucinations and denies any auditory hallucinations Though content/process: There is no evidence of any delusional thought content and thought process is linear and goal-directed. Memory and concentration: AOX3, grossly intact for the purposes of this session. Can spell "WORLD" backwards Judgment and insight: improving Vital Signs Temp 98.1 F 10/17/20 07:00 Pulse 77 10/17/20 07:00 Resp 18 10/17/20 07:00 BP 113/74 10/17/20 07:00 Pulse Ox 96 10/17/20 09:11 Intake & Output 10/16/20 10/17/20 10/17/20 18:59 06:59 18:59 Weight 163.293 kg Other: # Voids 1 1 Assessment Chest pain and Palpitations -The patient is on numerous medications placing her at risk of polypharmacy. She is also receiving provigil for management of MS. Our goal will be to minimize polypharmacy. Major depressive disorder, with anxious features Posttraumatic stress disorder Rule out cluster B personality traits PLAN: -At this time patient DOES NOT meet criteria for inpatient psychiatric admission. -Would recommend the following medication changes/additions: Discontinue abilify. Continue Pristiq 100 mg daily for depression/anxiety, Seroquel 25 mg at bedtime for mood stabilization, buspar 15 mg bid for anxiety -Psychiatry is cleared psychiatrically for discharge. will sign off at this point, please contact with any questions.
[2020-10-17] MEDS: CALCIUM CARBONATE LIQUID 500 MG/5 ML CUP PO SCH (20:36)
[2020-10-17] MEDS: PRAZOSIN 1 MG CAP PO SCH (20:36)
[2020-10-17] MEDS: MONTELUKAST 10 MG TAB PO SCH (20:36)
[2020-10-17] MEDS: [UNRECOGNIZED DRUG - OTHER] PO SCH (20:37)
[2020-10-17] MEDS: QUEtiapine 25 MG TAB PO SCH (20:37)
--- NOTE | 2020-10-17 21:31 | P.PN ---
Progress Note - Text Progress Note Date: 10/17/20 Chief Complaint: Heart racing History of presenting complaint: This is a very pleasant 25-year-old patient, follows with Dr. Torres. Chronic stable medical conditions include GERD, multiple sclerosis, asthma, daytime somnolence, hypothyroid, peripheral neuropathy, depression and anxiety, muscle spasms. [facility] and with for neurological and pain medications. Patient has generalized pain. Patient was scheduled for a stress test as an outpatient. Patient presents with a squeezing sensation in the heart as started yesterday. Also from the heart racing and thumping. Started around 4:30 PM yesterday. Presents rather constantly with some waxing and waning. Does not radiate. Not necessarily related to activity. No perspiration. No dizziness, lightheadedness. During these episodes since admission patient has remained in sinus rhythm. Cardiology and psychiatry were consulted. After discussion with psychiatry and the patient Abilify is to be discontinued. Carafate was also to be discontinued because to interfere with absorption. Does of Antivert to be cut back to 12.53 times a day. Also dose of Singulair cutback to 3 times a day. Baclofen changed to when necessary Today: Sitting up in a chair. Comfortable. I discussed with Dr. Rankin from cardiology. Given the 2-D echo findings we'll proceed with a nuclear stress test. Discussed at length with the patient importance of cutting back on her medications. She agrees as per Dr. Salinas's recommendation to stop the Abilify. I also discussed with Dr. Salinas. Patient has episodes of sharp chest pain intermittently. Review of systems: Was done for constitutional, cardiovascular, GI, pulmonary. relevant finding as above Active Medications Acetaminophen/Butalbital/Caffeine (Butalb/Apap/Caff 50-325-40mg Tab) 1 each PO TID PRN PRN Reason: Migraine Headache Last Admin: 10/16/20 19:29 Dose: 1 each Documented by: Hydrocodone Bitart/Acetaminophen (Hydrocodone/Apap 10-325mg 1 Each Tab) 1 each PO TID [facility] Last Admin: 10/17/20 20:34 Dose: 1 each Documented by: Aspirin (Aspirin 325 Mg Tab) 325 mg PO DAILY [facility] Last Admin: 10/17/20 09:29 Dose: 325 mg Documented by: Baclofen (Baclofen 10 Mg Tab) 20 mg PO TID PRN PRN Reason: Moderate to Severe Spasms Last Admin: 10/17/20 16:49 Dose: 20 mg Documented by: Buspirone HCl (Buspirone Hcl 5 Mg Tab) 15 mg PO TID [facility] Last Admin: 10/17/20 16:42 Dose: 15 mg Documented by: Calcium Carbonate/Glycine (Calcium Carbonate Liquid 500 Mg/5 Ml Cup) 500 mg PO TID-W/MEALS [facility] Last Admin: 10/17/20 20:36 Dose: 500 mg Documented by: Desvenlafaxine Succinate (Desvenlafaxine Succinate 50 Mg Tab.Er.24h) 100 mg PO DAILY [facility] Last Admin: 10/17/20 09:31 Dose: 100 mg Documented by: Ergocalciferol (Ergocalciferol 1,250 Mcg (50,000 Iu) Capsule) 1,250 mcg PO MO [facility] Gabapentin (Gabapentin 300 Mg Cap) 600 mg PO TID [facility] Last Admin: 10/17/20 16:41 Dose: 600 mg Documented by: Dobutamine HCl/Dextrose 500 mg (/ IV Solution) 250 mls @ 48.988 mls/hr IV .Q5H7M PRN; Protocol PRN Reason: Per Protocol Stop: 10/18/20 12:00 Levothyroxine Sodium (Levothyroxine 50 Mcg Tab) 50 mcg PO 0630 [facility] Last Admin: 10/17/20 05:36 Dose: 50 mcg Documented by: Meclizine HCl (Meclizine 25 Mg Tab) 12.5 mg PO TID [facility] Last Admin: 10/17/20 16:52 Dose: 12.5 mg Documented by: Metoprolol Succinate (Metoprolol Succinate (Er) 25 Mg Tab.Er.24h) 12.5 mg PO DAILY [facility] Last Admin: 10/17/20 09:27 Dose: 12.5 mg Documented by: Modafinil (Modafinil 200 Mg Tab) 200 mg PO AC-BID [facility] Last Admin: 10/17/20 16:43 Dose: 200 mg Documented by: Montelukast Sodium (Montelukast 10 Mg Tab) 10 mg PO HS [facility] Last Admin: 10/17/20 20:36 Dose: 10 mg Documented by: Naloxone HCl (Naloxone 0.4 Mg/Ml 1 Ml Vial) 0.2 mg IV Q2M PRN PRN Reason: Opioid Reversal Non-Formulary Medication (Cromolyn Sodium [Cromolyn Sodium]) 1 drop BOTH EYES BID [facility] Last Admin: 10/17/20 20:36 Dose: Not Given Documented by: Non-Formulary Medication ([place] Oral Contraceptive) 1 tab PO [facility] Last Admin: 10/17/20 20:37 Dose: Not Given Documented by: Ondansetron HCl (Ondansetron 4 Mg Tab) 8 mg PO TID PRN PRN Reason: Nausea Last Admin: 10/17/20 09:30 Dose: 8 mg Documented by: Pantoprazole Sodium (Pantoprazole 40 Mg Tablet) 40 mg PO DAILY [facility] Last Admin: 10/17/20 09:29 Dose: 40 mg Documented by: Prazosin HCl (Prazosin 1 Mg Cap) 5 mg PO [facility] Last Admin: 10/17/20 20:36 Dose: 5 mg Documented by: Quetiapine Fumarate (Quetiapine 25 Mg Tab) 25 mg PO [facility] Last Admin: 10/17/20 20:37 Dose: 25 mg Documented by: Sumatriptan Succinate (Sumatriptan Succinate 50 Mg Tab) 100 mg PO BID PRN PRN Reason: Migraine Headache Zonisamide (Zonisamide 100 Mg Cap) 100 mg PO BID [facility] Last Admin: 10/17/20 20:37 Dose: 100 mg Documented by: Past medical history to include: Migraines, irritable bowel syndrome, overactive bladder, gastrojejunal ulcer, multiple sclerosis, does use a walker for some left leg weakness, anxiety depres caleb Social history: Lives with her mother and brother. On disability. No history of smoking or alcohol. Does use a walker. Physical examination: VITAL SIGNS: 98, 75, 17, 140/76, 87% room air GENERAL: Reclining in a recliner, comfortable EYES: Pupils equal. Conjunctiva normal. HEENT: External appearance of nose and ears normal, oral cavity grossly normal. NECK: JVD not raised; masses not palpable. HEART: First and second heart sounds are normal; no edema. LUNGS: Respiratory rate normal; clear to auscultation. ABDOMEN: Soft, nontender, liver spleen not palpable, no masses palpable. PSYCH: Alert and oriented x3; mood and affect normal. INVESTIGATIONS, reviewed in the clinical context: CTA chest: Negative for PE WBC 8.6 hemoglobin 12.9 platelets 211 potassium 4.1 creatinine 0.71 Troponin I 3 negative Coronavirus [PCF] not detected 2-D echocardiogram: EF 45-50%, inferoseptal, inferior wall hypokinetic EKG tracing personally reviewed by me-normal sinus rhythm Chest x-ray film --clear Assessment and plan: -Patient presents with episodes of heart racing palpitation some squeezing sensation. Telemetry is unremarkable. 2-D echocardiogram is showing some wall motion abnormality. 4 nuclear stress test. -Morbid obesity BMI 56.4 Consult dietitian -Chronic muscle spasms Change baclofen to 20 mg every 8 when necessary -Depression and anxiety Continue with home medications -Intermittent asthma Continue with Singulair -Hypothyroid Continue with Synthroid -Peptic ulcer disease Continue with Protonix. DC Carafate as it'll interfere with absorption of other medications -Painful peripheral neuropathy from multiple sclerosis Continue with Neurontin. Dose decreased to 3 times a day -Irritable bowel syndrome -Overactive/spastic bladder -Chronic gait dysfunction with left lower extreme be weakness from multiple sclerosis, using walker Discussed with the patient. Discussed with Dr. Salinas. Discussed with the nurse. Medication changes as above. Importance of minimizing side effects discussed with the patient at length.
[2020-10-18] MEDS: LEVOTHYROXINE 50 MCG TAB PO SCH (05:30)
[2020-10-18] MEDS ORDERED: DOBUTamine DRIP for NUC MED 500 MG in DEXTROSE/WATER 1 250ML.BAG IV PRN (06:00)
[2020-10-18] MEDS: ASPIRIN 325 MG TAB PO SCH (10:11)
[2020-10-18] MEDS: DESVENLAFAXINE SUCCINATE 50 MG TAB.ER.24H PO SCH (10:11)
[2020-10-18] MEDS: PANTOPRAZOLE 40 MG TABLET PO SCH (10:12)
[2020-10-18] MEDS: METOPROLOL SUCCINATE (ER) 25 MG TAB.ER.24H PO SCH (10:12)
[2020-10-18] MEDS: MECLIZINE 25 MG TAB PO SCH (10:12)
[2020-10-18] MEDS: GABAPENTIN 300 MG CAP PO SCH (10:12)
[2020-10-18] MEDS: ZONISAMIDE 100 MG CAP PO SCH (10:12)
[2020-10-18] MEDS: busPIRone HCl 5 MG TAB PO SCH (10:13)
[2020-10-18] MEDS: HYDROcodone/APAP 10-325MG 1 EACH TAB PO SCH (10:13)
[2020-10-18] MEDS: CALCIUM CARBONATE LIQUID 500 MG/5 ML CUP PO SCH ×2 (10:13→14:31)
[2020-10-18] MEDS: CROMOLYN SODIUM BOTH EYES SCH (10:14)
--- NOTE | 2020-10-18 11:11 | P.PN ---
Subjective This is a pleasant 25-year-old female past medical history significant for multiple sclerosis and asthma. She follows in the office with Dr. Lees. She is seen and examined sitting up eating breakfast in no acute distress. She states she did have an episode of palpitations last evening that was brief in nature. Telemetry tracings reviewed. She continues to maintain sinus mechanism with no evidence of arrhythmias. She also continues to have similar episodes of chest discomfort. She has no shortness of breath or dizziness. Echocardiogram obtained revealed mildly impaired LV systolic function with ejection fraction 45-50% with basal inferior and basal inferior septal wall motion abnormalities and mildly enlarged right ventricle. Blood pressure 113/74 heart rate 77 afebrile and maintaining oxygen saturation on room air. CTA negative for PE. 10/19/2019 Patient seen and examined resting comfortably lying flat in no acute distress. She states she had an episode of palpitations yesterday evening. The nurse came to the bedside and documented her heart rate in the 90s. Telemetry tracings reviewedagain arrhythmias noted. Blood pressure 97/60 heart rate 62 afebrile maintaining oxygen saturation on room air. GENERAL: Well-appearing, well-nourished and in no acute distress. Morbidly obese. NECK: Supple without JVD or thyromegaly. LUNGS: Breath sounds clear to auscultation bilaterally. Respiration equal and unlabored. No wheezes, rales or rhonchi. HEART: Regular rate and rhythm with systolic ejection murmur at the left sternal border, no rubs or gallops. S1 and S2 heard. EXTREMITIES: Normal range of motion, no edema. No clubbing or cyanosis. Peripheral pulses intact. ASSESSMENT Chest pain, atypical Palpitations Multiple sclerosis RV enlargement Morbid obesity, BMI 56 PLAN Stable for discharge if stress test is normal. Follow up with Dr. Lees in the office regarding cardiac MRI. Nurse Practitioner note has been reviewed, I agree with a documented findings and plan of care. Patient was seen and examined. Objective - Vital Signs Vital signs: Vital Signs Temp 97.9 F 10/18/20 07:00 Pulse 62 10/18/20 07:00 Resp 17 10/18/20 07:00 BP 97/60 10/18/20 07:00 Pulse Ox 98 10/18/20 07:00 Intake & Output 06/09/21 06/10/21 06/10/21 18:59 06:59 18:59 Weight 163.29 kg Other: Voiding Method Toilet # Voids 1 3 - Labs CBC & Chem 7: 10/15/20 21:32 10/15/20 21:32
[2020-10-18 15:14] VITALS: BP 108/70; PULSE 75; RESP 16; TEMP 98.6
--- NOTE | 2020-10-18 17:14 | P.DS ---
Providers Date of admission: 10/17/20 16:08 Expected date of discharge: 10/18/20 Attending physician: Kanu Harvey Consults: 10/15/20 22:42 Consult Physician Routine Consulting Provider: Javier Lees Consult Reason/Comments: CP Do you want consulting provider notified?: Yes 10/16/20 10:00 Consult Physician Routine Consulting Provider: Geoff Salinas Consult Reason/Comments: re-eval psy meds Do you want consulting provider notified?: Yes Primary care physician: [facility] Course: Chief Complaint: Heart racing History of presenting complaint: This is a very pleasant 25-year-old patient, follows with Dr. Torres. Chronic stable medical conditions include GERD, multiple sclerosis, asthma, daytime somnolence, hypothyroid, peripheral neuropathy, depression and anxiety, muscle spasms. She follows at [email or web address] for her anxiety depression medications and with for neurological and pain medications. Patient has generalized pain. Patient was scheduled for a stress test as an outpatient. Patient presents with a squeezing sensation in the heart as started yesterday. Also from the heart racing and thumping. Started around 4:30 PM yesterday. Presents rather constantly with some waxing and waning. Does not radiate. Not necessarily related to activity. No perspiration. No dizziness, lighthea dedness. During these episodes since admission patient has remained in sinus rhythm. Cardiology and psychiatry were consulted. After discussion with psychiatry and the patient Abilify is to be discontinued. Carafate was also to be discontinued because to interfere with absorption. Does of Antivert to be cut back to 12.53 times a day. Also dose of Singulair cutback to 3 times a day. Baclofen changed to when necessary She agrees as per Dr. Salinas's recommendation to stop the Abilify. I also discussed with Dr. Salinas. Following medication changes were done. -Abilify discontinued -Antivert cutback to 12.53 times a day -Baclofen changed to when necessary -Gabapentin decreased to 3 times a day -Claritin discontinued -Carafate discontinued Today: Underwent a nuclear stress test. Cleared by currently. Medicine changes were discussed with patient. She'll follow-up with a psychiatrist and neurologist. 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 Salinas from psychiatry Dr. Rankin from cardiology Past medical history to include: Migraines, irritable bowel syndrome, overactive bladder, gastrojejunal ulcer, multiple sclerosis, does use a walker for some left leg weakness, anxiety depression Social history: Lives with her mother and brother. On disability. No history of smoking or alcohol. Does use a walker. Physical examination: VITAL SIGNS: 98.6, 75, 16, 18.70, 96% room air GENERAL: Reclining in a recliner, comfortable EYES: Pupils equal. Conjunctiva normal. HEENT: External appearance of nose and ears normal, oral cavity grossly normal. NECK: JVD not raised; masses not palpable. HEART: First and second heart sounds are normal; no edema. LUNGS: Respiratory rate normal; clear to auscultation. ABDOMEN: Soft, nontender, liver spleen not palpable, no masses palpable. PSYCH: Alert and oriented x3; mood and affect normal. INVESTIGATIONS, reviewed in the clinical context: Nuclear stress test reported to be normal CTA chest: Negative for PE WBC 8.6 hemoglobin 12.9 platelets 211 potassium 4.1 creatinine 0.71 Troponin I 3 negative Coronavirus [PCF] not detected 2-D echocardiogram: EF 45-50%, inferoseptal, inferior wall hypokinetic EKG tracing personally reviewed by me-normal sinus rhythm Chest x-ray film --clear Assessment and plan: -Patient presents with episodes of heart racing palpitation some squeezing sensation. Cause unknown. Outpatient possible cardiac MRI -Morbid obesity BMI 56.4 Consult dietitian -Chronic muscle spasms Change baclofen to 20 mg every 8 when necessary -Depression and anxiety Continue with home medications -Intermittent asthma Continue with Singulair -Hypothyroid Continue with Synthroid -Peptic ulcer disease Continue with Protonix. DC Carafate as it'll interfere with absorption of other medications -Painful peripheral neuropathy from multiple sclerosis Continue with Neurontin. Dose decreased to 3 times a day -Irritable bowel syndrome -Overactive/spastic bladder -Chronic gait dysfunction with left lower extreme be weakness from multiple sclerosis, using walker Disposition: Home Patient Condition at Discharge: Stable Plan - Discharge Summary Discharge Rx Participant: No New Discharge Prescriptions: New Meclizine [Antivert] 12.5 mg PO TID PRN #30 tab PRN Reason: Mild Itching Metoprolol Succinate (ER) [Toprol XL] 12.5 mg PO DAILY #30 tab.er.24h Continue Zonisamide 100 mg PO BID Omeprazole 40 mg PO DAILY #90 capsule.[address] [place] Oral Contraceptive 1 tab PO HS Butalb/APAP/Caff 50-325-40Mg [Fioricet 50-325-40] 1 tab PO TID PRN PRN Reason: Migraine Headache Ergocalciferol (Vitamin D2) [Vitamin D2] 50,000 unit PO MO modafiniL [Provigil] 200 mg PO BID ondansetron HCL [Zofran] 8 mg PO TID PRN PRN Reason: Nausea Galcanezumab-Gnlm [Emgality Pen] 120 mg SQ Q30D Desvenlafaxine [Pristiq ER] 100 mg PO DAILY Prazosin HCl 5 mg PO HS Montelukast Sodium [Singulair] 10 mg PO HS HYDROcodone/APAP 10-325MG [[place] 10-325] 1 tab PO TID Cromolyn Sodium 1 drop BOTH EYES BID Levothyroxine Sodium [Synthroid] 50 mcg PO DAILY QUEtiapine [SEROquel] 25 mg PO HS Ocrevus 1 dose IV Q180D busPIRone HCL 15 mg PO TID Eletriptan HBr [Relpax] 40 mg PO BID PRN PRN Reason: Migraine Headache Changed Baclofen [Lioresal] 20 mg PO TID PRN #0 PRN Reason: Muscle Spasm Gabapentin 600 mg PO TID #0 Discontinued Meclizine HCl 25 mg PO TID Loratadine [Claritin] 10 mg PO DAILY Sucralfate [Carafate] 1 gm PO BID Pseudoephedrine 12Hr [Sudafed 12 Hour] 120 mg PO Q12H PRN PRN Reason: Congestion ARIPiprazole [Abilify] 5 mg PO DAILY Discharge Medication List Zonisamide 100 mg PO BID 04/06/15 [History] Omeprazole 40 mg PO DAILY #90 capsule. 03/26/18 [Rx] [place] Oral Contraceptive 1 tab PO HS 09/08/18 [History] Butalb/APAP/Caff 50-325-40Mg [Fioricet 50-325-40] 1 tab PO TID PRN 10/05/18 [History] Ergocalciferol (Vitamin D2) [Vitamin D2] 50,000 unit PO MO 10/05/18 [History] Galcanezumab-Gnlm [Emgality Pen] 120 mg SQ Q30D 03/21/19 [History] modafiniL [Provigil] 200 mg PO BID 03/21/19 [History] ondansetron HCL [Zofran] 8 mg PO TID PRN 03/21/19 [History] Cromolyn Sodium 1 drop BOTH EYES BID 07/04/20 [History] Desvenlafaxine [Pristiq ER] 100 mg PO DAILY 07/04/20 [History] HYDROcodone/APAP 10-325MG [[place] 10-325] 1 tab PO TID 07/04/20 [History] Montelukast Sodium [Singulair] 10 mg PO HS 07/04/20 [History] Prazosin HCl 5 mg PO HS 07/04/20 [History] Levothyroxine Sodium [Synthroid] 50 mcg PO DAILY 08/04/20 [History] QUEtiapine [SEROquel] 25 mg PO HS 08/04/20 [History] busPIRone HCL 15 mg PO TID 08/04/20 [History] Eletriptan HBr [Relpax] 40 mg PO BID PRN 10/15/20 [History] Ocrevus 1 dose IV Q180D 10/15/20 [History] Baclofen [Lioresal] 20 mg PO TID PRN #0 10/18/20 [Rx] Gabapentin 600 mg PO TID #0 10/18/20 [Rx] Meclizine [Antivert] 12.5 mg PO TID PRN #30 tab 10/18/20 [Rx] Metoprolol Succinate (ER) [Toprol XL] 12.5 mg PO DAILY #30 tab.er.24h 10/18/20 [Rx] Follow up Appointment(s)/Referral(s): [facility] [REFERRING] - As Needed (Contact for possible resources for transportation. ) Parminder Torres DO [Primary Care Provider] - 1-2 days Javier Lees DO [STAFF PHYSICIAN] - 2 Weeks
--- NOTE | 2020-10-19 21:18 | ECHOS ---
STRESS ECHOCARDIOGRAM DATE OF SERVICE: 10/18/2020 AGE: 25 SEX: Female HT: 5'7" WT: 359 lbs. PROTOCOL: Dobutamine STAGE: III DURATION OF EXERCISE: 8:31 HEART RATE REST: 61 BLOOD PRESSURE REST: 127/68 MAXIMUM HEART RATE ACHIEVED: 164 MAXIMUM BLOOD PRESSURE: 184/84 85% MPHR: 85 100% MPHR: 193 METS: INDICATIONS: Chest pain STRESS DATA: Heart rate 61, pressure is 127/68 mmHg. Baseline EKG showed sinus mechanism. Dobutamine infusion at the dose of 10 mcg/kg per minute was initiated and increased to 30 mcg/kg per protocol. Max heart rate was 164, which is about 85% of maximum predicted heart rate. Maximum blood pressure was 207/91 mmHg. Clinically, the patient did not have any symptoms and the EKG did not show any significant ST or T-wave abnormalities concerning for ischemia. On echocardiogram images from parasternal long axis view, parasternal short axis view, apical 4 chamber and apical 2 chamber were obtained as the baseline images, at low dose dobutamine infusion, at the peak of the heart rate as well as on recovery. The echocardiogram images did not show any evidence of wall motion abnormalities concerning for ischemia. CONCLUSION: 1. Normal EKG in response to dobutamine. 2. Normal echocardiogram in response to dobutamine. MMODL / IJN: [id number] /
[2020-10-22] MEDS ORDERED: ERGOCALCIFEROL 1,250 MCG (50,000 IU) CAPSULE PO SCH (09:00)
== END 2020-10-18 17:49 | disposition home or self-care (01) | DRG 313 ==
LOC: EC 19:39 → 6NMEDSUR 22:43 → OBSVTOIN 10-17 16:08
PROVIDERS: ADMIT Hospitalist; ATTEND Hospitalist
DX: R07.89 Other chest pain (principal); Z68.43 Body mass index [BMI] 50.0-59.9, adult; R00.0 Tachycardia, unspecified; E03.9 Hypothyroidism, unspecified; E66.01 Morbid (severe) obesity due to excess calories; F41.8 Other specified anxiety disorders; K58.9 Irritable bowel syndrome, unspecified; G35 Multiple sclerosis; G62.9 Polyneuropathy, unspecified; J45.20 Mild intermittent asthma, uncomplicated; F43.10 Post-traumatic stress disorder, unspecified; K21.9 Gastro-esophageal reflux disease without esophagitis; G43.909 Migraine, unspecified, not intractable, without status migrainosus; R53.1 Weakness; M62.838 Other muscle spasm; R40.0 Somnolence; N32.81 Overactive bladder; Z87.11 Personal history of peptic ulcer disease; Z20.822 Contact with and (suspected) exposure to COVID-19; Z79.890 Hormone replacement therapy; Z88.6 Allergy status to analgesic agent; Z88.8 Allergy status to other drugs, medicaments and biological substances; Z91.010 Allergy to peanuts; Z91.011 Allergy to milk products; Z79.82 Long term (current) use of aspirin; Z79.51 Long term (current) use of inhaled steroids; Z79.899 Other long term (current) drug therapy
CPT/HCPCS: 36415; 71046; 71275; 80053; 83735; 84484; 85025; 85379; 85610; 85730; 87635; 93005; 93306; 93351; 94760; 99285

== ENCOUNTER 2020-10-19 23:09 | Emergency (ER) | payer OTHER ==
[2020-10-19] MEDS ORDERED: SODIUM CHLORIDE 0.9% 500 ML 500 ML IV STA (23:19)
[2020-10-19 23:21] VITALS: RESP 16; TEMP 99.3
--- NOTE | 2020-10-19 23:59 | ED ---
Dizziness HPI - General Chief Complaint: Dizziness Stated Complaint: Dizziness Time Seen by Provider: 10/19/20 23:19 Source: patient, EMS Mode of arrival: EMS Limitations: no limitations - History of Present Illness Initial Comments: This patient is 25-year-old woman who presents to be evaluated for constellation of symptoms including dizziness, lightheadedness, palpitations that is been going on over the past day since she was released from the hospital. She had been in the hospital for number days being worked up for similar symptoms. She had been seen by cardiology who wanted her to have cardiac MRI. Patient also notes that she was having variations in her blood pressure. MD Complaint: dizziness, lightheadedness -: hour(s) Timing: intermittent Description: lightheadedness, off-balance History of Same: Yes History of Trauma: No Severity: severe Improves With: remaining still Worsens With: movement - Related Data Home Medications Medication Instructions Recorded Confirmed Zonisamide 100 mg PO BID 04/06/15 10/15/20 [place] Oral Contraceptive 1 tab PO HS 09/08/18 10/15/20 Butalb/APAP/Caff 50-325-40Mg 1 tab PO TID PRN 10/05/18 10/15/20 [Fioricet 50-325-40] Ergocalciferol (Vitamin D2) 50,000 unit PO MO 10/05/18 10/15/20 [Vitamin D2] Galcanezumab-Gnlm [Emgality Pen] 120 mg SQ Q30D 03/21/19 10/15/20 modafiniL [Provigil] 200 mg PO BID 03/21/19 10/15/20 ondansetron HCL [Zofran] 8 mg PO TID PRN 03/21/19 10/15/20 Cromolyn Sodium 1 drop BOTH EYES BID 07/04/20 10/15/20 Desvenlafaxine [Pristiq ER] 100 mg PO DAILY 07/04/20 10/15/20 HYDROcodone/APAP 10-325MG [[place] 1 tab PO TID 07/04/20 10/15/20 10-325] Montelukast Sodium [Singulair] 10 mg PO HS 07/04/20 10/15/20 Prazosin HCl 5 mg PO HS 07/04/20 10/15/20 Levothyroxine Sodium [Synthroid] 50 mcg PO DAILY 08/04/20 10/15/20 QUEtiapine [SEROquel] 25 mg PO HS 08/04/20 10/15/20 busPIRone HCL 15 mg PO TID 08/04/20 10/15/20 Eletriptan HBr [Relpax] 40 mg PO BID PRN 10/15/20 10/15/20 Ocrevus 1 dose IV Q180D 10/15/20 10/15/20 Previous Rx's Medication Instructions Recorded Omeprazole 40 mg PO DAILY #90 capsule.dr 03/26/18 Baclofen [Lioresal] 20 mg PO TID PRN #0 10/18/20 Gabapentin 600 mg PO TID #0 10/18/20 Meclizine [Antivert] 12.5 mg PO TID PRN #30 tab 10/18/20 Metoprolol Succinate (ER) [Toprol 12.5 mg PO DAILY #30 tab.er.24h 10/18/20 XL] Allergies Allergy/AdvReac Type Severity Reaction Status Date / Time lactose Allergy Unknown Verified 10/16/20 08:20 peanut Allergy Anaphylaxis Verified 10/15/20 23:09 aspartame AdvReac Diarrhea Verified 10/15/20 23:09 fingolimod [From Swipely] AdvReac Abdominal Verified 10/15/20 23:09 Pain ibuprofen AdvReac Abdominal Verified 10/15/20 23:09 Pain Review of Systems ROS Statement: Those systems with pertinent positive or pertinent negative responses have been documented in the HPI. ROS Other: All systems not noted in ROS Statement are negative. Constitutional: Denies: fever, chills, weakness Eyes: Denies: vision change Respiratory: Denies: cough, dyspnea Cardiovascular: Reports: palpitations. Denies: chest pain, orthopnea, edema, syncope Gastrointestinal: Denies: abdominal pain, vomiting, diarrhea, melena, hematochezia Genitourinary: Denies: dysuria, hematuria Musculoskeletal: Denies: back pain Skin: Denies: rash Neurological: Denies: headache, weakness, numbness, paresthesias Past Medical History Past Medical History: Asthma, Musculoskeletal Disorder Additional Past Medical History / Comment(s): migraines, DDD, IBS, overactive bladder, chronic back pain, gastrojejunal ulcer (dx 11-16-18)., states high bloodpressure when hospitalized., Hx of ER visit in May 2018 with dizziness, nausea & vomiting, blurred vision and lower extremity weakness, 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 Past Anesthesia/Blood Transfusion Reactions: No Reported Reaction Past Psychological History: Anxiety, Depression Smoking Status: Never smoker Past Alcohol Use History: None Reported Past Drug Use History: None Reported - Past Family History Mother Family Medical History: Diabetes Mellitus General Exam Limitations: no limitations General appearance: alert, in no apparent distress Head exam: Present: atraumatic, normocephalic Eye exam: Present: normal appearance. Absent: scleral icterus, conjunctival injection, nystagmus Neck exam: Present: normal inspection Respiratory exam: Present: normal lung sounds bilaterally. Absent: respiratory distress, wheezes, rales, rhonchi, stridor Cardiovascular Exam: Present: regular rate, normal rhythm, normal heart sounds. Absent: systolic murmur, diastolic murmur, rubs, gallop GI/Abdominal exam: Present: soft. Absent: distended, tenderness, guarding, rebound, rigid, mass Extremities exam: Present: normal inspection, normal capillary refill. Absent: pedal edema, calf tenderness Back exam: Present: normal inspection Neurological exam: Present: alert Skin exam: Present: warm, dry, intact, normal color. Absent: rash Course Vital Signs 10/19/20 10/20/20 10/20/20 23:14 01:02 02:38 Temperature 99.3 F Pulse Rate 72 66 73 Respiratory 16 16 16 Rate Blood Pressure 132/91 120/84 116/75 O2 Sat by Pulse 99 96 95 Oximetry EKG Findings - EKG Results: EKG: interpreted by ERMD, WNL, sinus rhythm (Rate 70 bpm), normal axis, normal QRS, normal ST/T, no acute changes - SC, Pacemaker, Normal: Normal tracing: normal tracing Medical Decision Making - Medical Decision Making Patient is 25-year-old woman having symptoms of orthostasis. She has been seen by cardiology with thorough workup and they will are sitting her up to have cardiac MRI. The patient's vital signs stable here and labs unchanged. Patient encouraged to limit activities which would be dangerous in the scenario of orthostasis and to follow-up with cardiology. - Lab Data Result diagrams: 10/19/20 23:52 10/19/20 23:52 Lab Results 10/19/20 10/19/20 10/19/20 Range/Units 23:52 23:52 23:52 WBC 6.5 (3.8-10.6) k/uL RBC 4.06 (3.80-5.40) m/uL Hgb 12.9 (11.4-16.0) gm/dL Hct 37.9 (34.0-46.0) % MCV 93.3 (80.0-100.0) fL MCH 31.8 (25.0-35.0) pg MCHC 34.1 (31.0-37.0) g/dL RDW 12.9 (11.5-15.5) % Plt Count 195 (150-450) k/uL MPV 10.1 Neutrophils % 67 % Lymphocytes % 23 % Monocytes % 6 % Eosinophils % 3 % Basophils % 0 % Neutrophils # 4.4 (1.3-7.7) k/uL Lymphocytes # 1.5 (1.0-4.8) k/uL Monocytes # 0.4 (0-1.0) k/uL Eosinophils # 0.2 (0-0.7) k/uL Basophils # 0.0 (0-0.2) k/uL Sodium 139 (137-145) mmol/L Potassium 3.8 (3.5-5.1) mmol/L Chloride 111 H (98-107) mmol/L Carbon Dioxide 22 (22-30) mmol/L Anion Gap 6 mmol/L BUN 9 (7-17) mg/dL Creatinine 0.75 (0.52-1.04) mg/dL Est GFR (CKD-EPI)AfAm >90 (>60 ml/min/1.73 sqM) Est GFR (CKD-EPI)NonAf >90 (>60 ml/min/1.73 sqM) Glucose 86 (74-99) mg/dL Calcium 9.2 (8.4-10.2) mg/dL Magnesium 1.9 (1.6-2.3) mg/dL Total Bilirubin 0.2 (0.2-1.3) mg/dL AST 20 (14-36) U/L ALT 11 (4-34) U/L Alkaline Phosphatase 77 (38-126) U/L Troponin I <0.012 (0.000-0.034) ng/mL Total Protein 6.2 L (6.3-8.2) g/dL Albumin 4.0 (3.5-5.0) g/dL Urine HCG, Qual (Not Detectd) 10/20/20 Range/Units 01:52 WBC (3.8-10.6) k/uL RBC (3.80-5.40) m/uL Hgb (11.4-16.0) gm/dL Hct (34.0-46.0) % MCV (80.0-100.0) fL MCH (25.0-35.0) pg MCHC (31.0-37.0) g/dL RDW (11.5-15.5) % Plt Count (150-450) k/uL MPV Neutrophils % % Lymphocytes % % Monocytes % % Eosinophils % % Basophils % % Neutrophils # (1.3-7.7) k/uL Lymphocytes # (1.0-4.8) k/uL Monocytes # (0-1.0) k/uL Eosinophils # (0-0.7) k/uL Basophils # (0-0.2) k/uL Sodium (137-145) mmol/L Potassium (3.5-5.1) mmol/L Chloride (98-107) mmol/L Carbon Dioxide (22-30) mmol/L Anion Gap mmol/L BUN (7-17) mg/dL Creatinine (0.52-1.04) mg/dL Est GFR (CKD-EPI)AfAm (>60 ml/min/1.73 sqM) Est GFR (CKD-EPI)NonAf (>60 ml/min/1.73 sqM) Glucose (74-99) mg/dL Calcium (8.4-10.2) mg/dL Magnesium (1.6-2.3) mg/dL Total Bilirubin (0.2-1.3) mg/dL AST (14-36) U/L ALT (4-34) U/L Alkaline Phosphatase (38-126) U/L Troponin I (0.000-0.034) ng/mL Total Protein (6.3-8.2) g/dL Albumin (3.5-5.0) g/dL Urine HCG, Qual Not Detected (Not Detectd) Disposition Clinical Impression: Lightheadedness Disposition: HOME SELF-CARE Condition: Good Instructions (If sedation given, give patient instructions): Dizziness (ED) Is patient prescribed a controlled substance at d/c from ED?: No Referrals: Parminder Torres DO [Primary Care Provider] - 1-2 days
[2020-10-20 00:01] LABS: Basophils % (A) 0 %; Eosinophils # (A) 0.2 k/uL (0-0.7); Eosinophils % (A) 3 %; HCT 37.9 % (34.0-46.0); HGB 12.9 gm/dL (11.4-16.0); Lymphocytes # (A) 1.5 k/uL (1.0-4.8); Lymphocytes % (A) 23 %; MCH 31.8 pg (25.0-35.0); MCHC 34.1 g/dL (31.0-37.0); MCV 93.3 fL (80.0-100.0); Mean Platelet Volume 10.1; Monocytes # (A) 0.4 k/uL (0-1.0); Monocytes % (A) 6 %; Neutrophils # (A) 4.4 k/uL (1.3-7.7); Neutrophils % (A) 67 %; Platelet Count 195 k/uL (150-450); RBC 4.06 m/uL (3.80-5.40); RDW 12.9 % (11.5-15.5); WBC 6.5 k/uL (3.8-10.6)
--- NOTE | 2020-10-20 00:02 | XR ---
EXAMINATION TYPE: XR chest 2V DATE OF EXAM: 10/19/2020 COMPARISON: 10/15/2020 HISTORY: Dysrhythmia TECHNIQUE: FINDINGS: Heart and mediastinum are normal. Lungs are clear. Diaphragm is normal. Bony thorax appears normal. There are chest leads. IMPRESSION: Normal chest. No change.
[2020-10-20 00:19] LABS: Potassium 3.8 mmol/L (3.5-5.1)
[2020-10-20 00:20] LABS: ALT 11 U/L (4-34); AST 20 U/L (14-36); African American GFR (CKD) >90 (>60 ml/min/1.73 sqM); Alkaline Phosphatase 77 U/L (38-126); Anion Gap 6 mmol/L; Blood Urea Nitrogen 9 mg/dL (7-17); Calcium 9.2 mg/dL (8.4-10.2); Carbon Dioxide 22 mmol/L (22-30); Chloride 111 mmol/L (98-107); Glucose 86 mg/dL (74-99); Magnesium 1.9 mg/dL (1.6-2.3); Non-African American GFR(CKD) >90 (>60 ml/min/1.73 sqM); Sodium 139 mmol/L (137-145); Total Bilirubin 0.2 mg/dL (0.2-1.3); Total Protein 6.2 g/dL (6.3-8.2)
[2020-10-20] MEDS ORDERED: ONDANSETRON 4 MG/2 ML VIAL IVP STA (01:17)
[2020-10-20 02:39] VITALS: BP 116/75; PULSE 73
== END 2020-10-20 02:39 | disposition home or self-care (01) ==
LOC: EC 23:09
DX: R42 Dizziness and giddiness (principal); R00.2 Palpitations; J45.909 Unspecified asthma, uncomplicated; Z88.6 Allergy status to analgesic agent; Z91.010 Allergy to peanuts; Z91.011 Allergy to milk products; Z91.02 Food additives allergy status; Z88.8 Allergy status to other drugs, medicaments and biological substances
CPT/HCPCS: 36415; 93005; 80053; 83735; 84484; 85025; 81025; 71046; 99284; 96374; 96361; J2405

== ENCOUNTER 2020-10-25 | Inpatient (IN) | payer OTHER | END 2020-10-27 14:30 | disposition home or self-care (01) | DRG 176 | PROVIDERS: ADMIT Hospitalist | DX: I26.99 Other pulmonary embolism without acute cor pulmonale (principal); I47.1 Supraventricular tachycardia; I82.622 Acute embolism and thrombosis of deep veins of left upper extremity; Z68.43 Body mass index [BMI] 50.0-59.9, adult; E03.9 Hypothyroidism, unspecified; E66.01 Morbid (severe) obesity due to excess calories; F41.8 Other specified anxiety disorders; F43.10 Post-traumatic stress disorder, unspecified; F51.04 Psychophysiologic insomnia; Z20.822 Contact with and (suspected) exposure to COVID-19; G35 Multiple sclerosis; F41.9 Anxiety disorder, unspecified; F32.9 Major depressive disorder, single episode, unspecified; G47.30 Sleep apnea, unspecified; G62.9 Polyneuropathy, unspecified; J45.20 Mild intermittent asthma, uncomplicated; K21.9 Gastro-esophageal reflux disease without esophagitis; Z87.11 Personal history of peptic ulcer disease; K58.9 Irritable bowel syndrome, unspecified; N32.81 Overactive bladder; N32.89 Other specified disorders of bladder; Z79.890 Hormone replacement therapy; Z79.899 Other long term (current) drug therapy; Z83.3 Family history of diabetes mellitus; Z98.84 Bariatric surgery status; Z88.6 Allergy status to analgesic agent; Z88.5 Allergy status to narcotic agent; Z88.8 Allergy status to other drugs, medicaments and biological substances; Z79.891 Long term (current) use of opiate analgesic; Z91.010 Allergy to peanuts | CPT/HCPCS: 36415; 71045; 71275; 80053; 80061; 81001; 81025; 82232; 82306; 82550; 82553; 82607; 82746; 83735; 83880; 83921; 84100; 84443; 84484; 85025; 85379; 85598; 85610; 85613; 85730; 85732; 86146; 86147; 87635; 93005; 93970; 94640; 95816; 99285 ==

== ENCOUNTER → 2020-10-29 | Outpatient (CLI) | payer OTHER ==
--- NOTE | 2020-10-30 07:43 | CT ---
EXAMINATION TYPE: CT brain wo con DATE OF EXAM: 10/29/2020 COMPARISON: 06/22/2020 HISTORY: dizzy and sinus mass CT DLP: 1012.[address] of the brain was performed. The ventricles, basal cisterns and sulci overlying the cerebral convexities demonstrate a normal appe arance. There is no evidence for intracranial hemorrhage or sulcal effacement. No mass effects are seen. Osseous calvarium is intact. If symptoms persist consider MRI as clinically warranted. IMPRESSION: 1. No acute intracranial process is seen at this time.
== END | disposition home or self-care (01) ==
LOC: RADCTMAIN 17:32
PROVIDERS: ATTEND Psychiatry & Neurology Pain Medicine
DX: M85.08 Fibrous dysplasia (monostotic), other site (principal)
CPT/HCPCS: 70450

== ENCOUNTER 2020-11-05 | Emergency (ER) | payer OTHER | END 2020-11-05 04:07 | disposition home or self-care (01) | DX: M79.662 Pain in left lower leg (principal); M79.89 Other specified soft tissue disorders; M79.10 Myalgia, unspecified site; J45.909 Unspecified asthma, uncomplicated; G43.909 Migraine, unspecified, not intractable, without status migrainosus; Z88.5 Allergy status to narcotic agent; Z91.010 Allergy to peanuts; Z88.6 Allergy status to analgesic agent; Z88.8 Allergy status to other drugs, medicaments and biological substances; Z91.018 Allergy to other foods; Z79.899 Other long term (current) drug therapy; Z86.711 Personal history of pulmonary embolism; Z79.51 Long term (current) use of inhaled steroids | CPT/HCPCS: 99283 ==

== ENCOUNTER → 2020-12-31 | Outpatient (CLI) | payer OTHER ==
--- NOTE | 2020-12-31 13:34 | US ---
EXAMINATION TYPE: US venous doppler duplex LE LT DATE OF EXAM: 12/31/2020 12:51 PM COMPARISON: US CLINICAL HISTORY: I26.99; M79.662. Pain in left calf; hospitalized in October for PE SIDE PERFORMED: Left TECHNIQUE: The lower extremity deep venous system is examined utilizing real time linear array sonog ethel with graded compression, doppler sonography and color-flow sonography. VESSELS IMAGED: Common Femoral Vein Deep Femoral Vein Greater Saphenous Vein * Femoral Vein Popliteal Vein Small Saphenous Vein * Proximal Calf Veins (* superficial vessels) Left Leg: Negative for acute DVT. Echoes are noted upper left Femoral Vein valves (possible stuck va lves here). IMPRESSION: No evidence of acute DVT at this time.
== END | disposition home or self-care (01) ==
LOC: RADUSWWP 12:25
PROVIDERS: ATTEND Internal Medicine Hematology & Oncology
DX: I26.99 Other pulmonary embolism without acute cor pulmonale (principal); M79.662 Pain in left lower leg

== ENCOUNTER 2021-01-19 02:15 | Emergency (ER) | payer OTHER ==
--- NOTE | 2021-01-19 03:04 | ED ---
Chest Pain HPI - General Chief Complaint: Chest Pain Stated Complaint: Chest Pain Time Seen by Provider: 01/19/21 02:23 Source: patient Mode of arrival: ambulatory Limitations: no limitations - History of Present Illness Initial Comments: This patient is 25-year-old woman presenting with chest pain that is been going on intermittently [2 weeks. She states it has gotten more consistent and she is concerned about possibility of PE. She has had previous blood clot and is taking eliquis. Complaint: chest pain Onset/Timin -: week(s) Onset: during rest Pain Location: substernal Pain Radiation: neck Severity: moderate Quality: dull Consistency: constant Improves With: nothing Worsens With: nothing Treatments Prior to Arrival: none - Related Data Home Medications Medication Instructions Recorded Confirmed Zonisamide 100 mg PO BID@1200,2100 04/06/15 01/18/21 Butalb/APAP/Caff 50-325-40Mg 1 tab PO TID PRN 10/05/18 01/18/21 [Fioricet 50-325-40] Ergocalciferol (Vitamin D2) 50,000 unit PO MO 10/05/18 01/18/21 [Vitamin D2] Galcanezumab-Gnlm [Emgality Pen] 120 mg SQ Q30D 03/21/19 01/18/21 modafiniL [Provigil] 200 mg PO BID@0900,1300 03/21/19 01/18/21 ondansetron HCL [Zofran] 8 mg PO TID PRN 03/21/19 01/18/21 Cromolyn Sodium 1 drop BOTH EYES BID 07/04/20 01/18/21 Desvenlafaxine [Pristiq ER] 100 mg PO DAILY 07/04/20 01/18/21 HYDROcodone/APAP 10-325MG [[place] 1 tab PO TID 07/04/20 01/18/21 10-325] Montelukast Sodium [Singulair] 10 mg PO HS 07/04/20 01/18/21 Levothyroxine Sodium [Synthroid] 50 mcg PO DAILY 08/04/20 01/18/21 Eletriptan HBr [Relpax] 40 mg PO BID PRN 10/15/20 01/18/21 Ocrevus 1 dose IV Q180D 10/15/20 01/18/21 Albuterol Sulfate [Proventil Hfa] 2 puff INHALATION RT-QID PRN 10/25/20 01/18/21 Baclofen [Lioresal] 20 mg PO TID 10/25/20 01/18/21 Fluticasone Nasal [place] [Flonase 2 spr EA NOSTRIL DAILY PRN 10/25/20 01/18/21 Nasal [place]] Fluticasone Propionate 220 Mcg 2 puff INHALATION RT-BID 10/25/20 01/18/21 [Flovent 220 Mcg Inhaler (Mhu)] Ketotifen 0.025% Ophth Soln 1 drop BOTH EYES BID 10/25/20 01/18/21 [Zaditor] Oxybutynin Chloride [Oxybutynin 10 mg PO DAILY 10/25/20 01/18/21 Chloride ER] Gabapentin 600 mg PO QID 01/15/21 01/18/21 busPIRone HCL 2 tab PO TID 01/15/21 01/18/21 Previous Rx's Medication Instructions Recorded Omeprazole 40 mg PO DAILY #90 capsule. 03/26/18 Meclizine [Antivert] 12.5 mg PO TID PRN #30 tab 10/18/20 Apixaban [Eliquis Starter Pack 0 mg PO DIRECTED 30 Days #1 pack 10/26/20 (for VTE)] Apixaban [Eliquis Starter Pack 0 mg PO DIRECTED 30 Days #1 pack 10/26/20 (for VTE)] Aspirin 325 mg PO BID #14 tab 01/19/21 Allergies Allergy/AdvReac Type Severity Reaction Status Date / Time codeine Allergy Swelling Verified 01/19/21 02:21 lactose Allergy Unknown Verified 01/19/21 02:21 peanut Allergy Anaphylaxis Verified 01/19/21 02:21 aspartame AdvReac Diarrhea Verified 01/19/21 02:21 fingolimod [From [employer]] AdvReac Abdominal Verified 01/19/21 02:21 Pain ibuprofen AdvReac Abdominal Verified 01/19/21 02:21 Pain Review of Systems ROS Statement: Those systems with pertinent positive or pertinent negative responses have been documented in the HPI. ROS Other: All systems not noted in ROS Statement are negative. Constitutional: Denies: fever, chills Respiratory: Denies: cough, dyspnea, wheezes Cardiovascular: Reports: chest pain. Denies: palpitations, orthopnea, edema, syncope Gastrointestinal: Denies: abdominal pain, nausea, vomiting, diarrhea Genitourinary: Denies: dysuria, hematuria Musculoskeletal: Denies: back pain Skin: Denies: rash Neurological: Denies: headache, weakness, numbness EKG Findings - EKG Results: EKG: interpreted by ERMD, sinus rhythm (Rate 75 bpm), normal axis, normal QRS, normal ST/T, no acute changes 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, Multiple Sclerosis dx November 2018, pt states left leg weak and uses walker ., Bladder retention, frequent flares with panniculitis (worse since weight loss); pt states last 2 weeks since 10/09/20 chest pain and SOB have been increasing History of Any Multi-Drug Resistant Organisms: MRSA Date of last positivie culture/infection: 11/08/17 MDRO Source:: LT INNER THIGH Past Surgical History: Bariatric Surgery, Cholecystectomy, Ear Surgery Additional Past Surgical History / Comment(s): tubes in ears, EGD, laparoscopic kimberly-en-y 02-08-2018 , EGD with dilation Past Anesthesia/Blood Transfusion Reactions: No Reported Reaction Past Psychological History: Anxiety, Depression, PTSD Smoking Status: Never smoker Past Alcohol Use History: None Reported Past Drug Use History: None Reported - Past Family History Mother Family Medical History: Diabetes Mellitus General Exam Limitations: no limitations General appearance: alert, in no apparent distress Head exam: Present: atraumatic, normocephalic Eye exam: Present: normal appearance Neck exam: Present: normal inspection, full ROM Respiratory exam: Present: normal lung sounds bilaterally. Absent: respiratory distress, wheezes, rales, rhonchi, stridor Cardiovascular Exam: Present: regular rate, normal rhythm, normal heart sounds. Absent: systolic murmur, diastolic murmur, rubs, gallop GI/Abdominal exam: Present: soft. Absent: distended, tenderness, guarding, rebound, rigid, mass Extremities exam: Present: normal inspection, normal capillary refill. Absent: pedal edema, calf tenderness Back exam: Present: normal inspection Neurological exam: Present: alert Skin exam: Present: warm, dry, intact, normal color. Absent: rash Course Vital Signs 01/19/21 01/19/21 01/19/21 02:18 03:03 03:39 Temperature 98.4 F Pulse Rate 87 71 Pulse Rate [ 80 [employer] ] Respiratory 22 18 Rate Blood Pressure 151/93 120/70 O2 Sat by Pulse 97 95 Oximetry 01/19/21 01/19/21 01/19/21 04:54 06:30 07:01 Temperature 97.9 F Pulse Rate 70 61 68 Pulse Rate [ [employer] ] Respiratory 18 18 18 Rate Blood Pressure 109/61 120/81 124/84 O2 Sat by Pulse 98 97 97 Oximetry Disposition Clinical Impression: Chest pain Disposition: HOME SELF-CARE Condition: Good Instructions (If sedation given, give patient instructions): Chest Pain (ED) Prescriptions: Aspirin 325 mg PO BID #14 tab Is patient prescribed a controlled substance at d/c from ED?: No Referrals: Parminder Torres DO [Primary Care Provider] - 1-2 days
--- NOTE | 2021-01-19 03:20 | XR ---
EXAMINATION TYPE: XR chest 2V DATE OF EXAM: 01/19/2021 COMPARISON: 10/26/2020 HISTORY: Chest pain TECHNIQUE: 2 views FINDINGS: Heart and mediastinum are normal. Lungs are clear. Diaphragm is normal. Bony thorax is inta ct. IMPRESSION: Normal chest. No change.
[2021-01-19 03:28] LABS: Basophils % (A) 0 %; Eosinophils # (A) 0.2 k/uL (0-0.7); Eosinophils % (A) 2 %; HCT 36.1 % (34.0-46.0); HGB 12.4 gm/dL (11.4-16.0); Lymphocytes % (A) 24 %; MCH 31.8 pg (25.0-35.0); MCHC 34.4 g/dL (31.0-37.0); MCV 92.5 fL (80.0-100.0); Mean Platelet Volume 9.1; Monocytes # (A) 0.4 k/uL (0-1.0); Monocytes % (A) 5 %; Neutrophils # (A) 5.7 k/uL (1.3-7.7); Neutrophils % (A) 67 %; Platelet Count 343 k/uL (150-450); RDW 13.4 % (11.5-15.5); WBC 8.6 k/uL (3.8-10.6)
[2021-01-19 03:36] LABS: INR 0.9 (<1.2); Partial Thromboplastin Time 22.6 sec (22.0-30.0); Prothrombin Time 9.5 sec (9.0-12.0)
[2021-01-19 03:41] VITALS: RESP 18
[2021-01-19 03:46] LABS: ALT 14 U/L (4-34); AST 23 U/L (14-36); African American GFR (CKD) >90 (>60 ml/min/1.73 sqM); Albumin 3.8 g/dL (3.5-5.0); Alkaline Phosphatase 105 U/L (38-126); Anion Gap 10 mmol/L; Blood Urea Nitrogen 10 mg/dL (7-17); Calcium 9.6 mg/dL (8.4-10.2); Carbon Dioxide 20 mmol/L (22-30); Chloride 110 mmol/L (98-107); Glucose 101 mg/dL (74-99); Magnesium 1.7 mg/dL (1.6-2.3); Non-African American GFR(CKD) >90 (>60 ml/min/1.73 sqM); Sodium 140 mmol/L (137-145); Total Bilirubin 0.3 mg/dL (0.2-1.3); Total Protein 6.3 g/dL (6.3-8.2)
[2021-01-19] MEDS ORDERED: HYDROcodone/APAP 5-325MG 1 EACH TAB PO STA (04:40)
[2021-01-19] MEDS ORDERED: MORPHINE SULFATE 4 MG/ML SYRINGE IV STA (06:17)
[2021-01-19] MEDS ORDERED: KETOROLAC 15 MG/ML 1 ML VIAL IVP STA (06:17)
[2021-01-19 07:03] VITALS: BP 124/84; PULSE 68; TEMP 97.9
== END 2021-01-19 07:11 | disposition home or self-care (01) ==
LOC: EC 02:15
DX: R07.2 Precordial pain (principal); J45.909 Unspecified asthma, uncomplicated; G43.909 Migraine, unspecified, not intractable, without status migrainosus; Z79.51 Long term (current) use of inhaled steroids; Z88.6 Allergy status to analgesic agent; Z88.5 Allergy status to narcotic agent; Z91.018 Allergy to other foods; Z91.010 Allergy to peanuts; Z91.011 Allergy to milk products; Z79.899 Other long term (current) drug therapy
CPT/HCPCS: 36415; 93005; 85379; 83880; 80053; 83735; 84484; 85025; 85610; 85730; 71046; 99285; 96374; 96375; J2270; J1885

== ENCOUNTER 2021-04-27 18:15 | Emergency (ER) | payer OTHER ==
[2021-04-27 18:27] VITALS: RESP 18
--- NOTE | 2021-04-27 19:26 | XR ---
EXAMINATION TYPE: XR chest 2V DATE OF EXAM: 04/27/2021 COMPARISON: 01/19/2021 HISTORY: Chest pain TECHNIQUE: FINDINGS: Heart and mediastinum are normal. Lungs are clear. Diaphragm is normal. Bony thorax is inta ct. IMPRESSION: Normal chest. No change.
--- NOTE | 2021-04-27 20:21 | ED ---
General Adult HPI - General Chief complaint: Arrhythmia/Palpitations Stated complaint: SOB/heart issues Time Seen by Provider: 04/27/21 20:21 Source: patient Mode of arrival: wheelchair Limitations: no limitations - History of Present Illness Initial comments: Patient presents to the ED complaining of having increased palpitations, which describes as "fluttering", over the past 3 days. Patient also states that she has felt dyspneic over the past 3 days, and she has had diffuse chest pain since this morning. Patient denies trauma or injury, fever or chills, headache, focal numbness/weakness/neuro deficit, radiation of her pain, neck/arm/jaw/back pain, pleuritic pain, cough or cold symptoms, dizziness, syncope, nausea/vomiting/diarrhea, abdominal pain, dysuria or urinary symptoms, leg or calf swelling or pain, or any other symptoms or complaints. Patient states that she has been taking her anxiety medications and her Eliquis regularly as pr escribed. Patient states that she is fully vaccinated against Covid. - Related Data Home Medications Medication Instructions Recorded Confirmed Zonisamide 100 mg PO BID@1200,2100 04/06/15 01/18/21 Butalb/APAP/Caff 50-325-40Mg 1 tab PO TID PRN 10/05/18 01/18/21 [Fioricet 50-325-40] Ergocalciferol (Vitamin D2) 50,000 unit PO MO 10/05/18 01/18/21 [Vitamin D2] Galcanezumab-Gnlm [Emgality Pen] 120 mg SQ Q30D 03/21/19 01/18/21 modafiniL [Provigil] 200 mg PO BID@0900,1300 03/21/19 01/18/21 ondansetron HCL [Zofran] 8 mg PO TID PRN 03/21/19 01/18/21 Cromolyn Sodium 1 drop BOTH EYES BID 07/04/20 01/18/21 Desvenlafaxine [Pristiq ER] 100 mg PO DAILY 07/04/20 01/18/21 HYDROcodone/APAP 10-325MG [[place] 1 tab PO TID 07/04/20 01/18/21 10-325] Montelukast Sodium [Singulair] 10 mg PO HS 07/04/20 01/18/21 Levothyroxine Sodium [Synthroid] 50 mcg PO DAILY 08/04/20 01/18/21 Eletriptan HBr [Relpax] 40 mg PO BID PRN 10/15/20 01/18/21 Ocrevus 1 dose IV Q180D 10/15/20 01/18/21 Albuterol Sulfate [Proventil Hfa] 2 puff INHALATION RT-QID PRN 10/25/20 01/18/21 Baclofen [Lioresal] 20 mg PO TID 10/25/20 01/18/21 Fluticasone Nasal [place] [Flonase 2 spr EA NOSTRIL DAILY PRN 10/25/20 01/18/21 Nasal [place]] Fluticasone Propionate 220 Mcg 2 puff INHALATION RT-BID 10/25/20 01/18/21 [Flovent 220 Mcg Inhaler (Mhu)] Ketotifen 0.025% Ophth Soln 1 drop BOTH EYES BID 10/25/20 01/18/21 [Zaditor] Oxybutynin Chloride [Oxybutynin 10 mg PO DAILY 10/25/20 01/18/21 Chloride ER] Gabapentin 600 mg PO QID 01/15/21 01/18/21 busPIRone HCL 2 tab PO TID 01/15/21 01/18/21 Previous Rx's Medication Instructions Recorded Omeprazole 40 mg PO DAILY #90 capsule. 03/26/18 Meclizine [Antivert] 12.5 mg PO TID PRN #30 tab 10/18/20 Apixaban [Eliquis Starter Pack 0 mg PO DIRECTED 30 Days #1 pack 10/26/20 (for VTE)] Apixaban [Eliquis Starter Pack 0 mg PO DIRECTED 30 Days #1 pack 10/26/20 (for VTE)] Aspirin 325 mg PO BID #14 tab 01/19/21 Allergies Allergy/AdvReac Type Severity Reaction Status Date / Time codeine Allergy Swelling Verified 04/27/21 18:27 lactose Allergy Unknown Verified 04/27/21 18:27 peanut Allergy Anaphylaxis Verified 04/27/21 18:27 aspartame AdvReac Diarrhea Verified 04/27/21 18:27 fingolimod [From [employer]] AdvReac Abdominal Verified 04/27/21 18:27 Pain ibuprofen AdvReac Abdominal Verified 04/27/21 18:27 Pain Review of Systems ROS Statement: Those systems with pertinent positive or pertinent negative responses have been documented in the HPI. ROS Other: All systems not noted in ROS Statement are negative. 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, Multiple Sclerosis dx November 2018, pt states left leg weak and uses walker ., Bladder retention, frequent flares with panniculitis (worse since weight loss); pt states last 2 weeks since 10/09/20 chest pain and SOB have been increasing History of Any Multi-Drug Resistant Organisms: MRSA Date of last positivie culture/infection: 11/08/17 MDRO Source:: LT INNER THIGH Past Surgical History: Bariatric Surgery, Cholecystectomy, Ear Surgery Additional Past Surgical History / Comment(s): tubes in ears, EGD, laparoscopic kimberly-en-y 02-08-2018 , EGD with dilation Past Anesthesia/Blood Transfusion Reactions: No Reported Reaction Past Psychological History: Anxiety, Depression, PTSD Smoking Status: Never smoker Past Alcohol Use History: None Reported Past Drug Use History: None Reported - Past Family History Mother Family Medical History: Diabetes Mellitus General Exam Limitations: no limitations General appearance: alert, in no apparent distress Head exam: Present: atraumatic, normocephalic Eye exam: Present: normal appearance, EOMI ENT exam: Present: mucous membranes moist Neck exam: Present: other (Trachea is in midline) Respiratory exam: Present: normal lung sounds bilaterally. Absent: respiratory distress, wheezes, rales, rhonchi, stridor, chest wall tenderness Cardiovascular Exam: Present: regular rate, normal rhythm, normal heart sounds, other (Normal radial pulses bilaterally) GI/Abdominal exam: Present: soft. Absent: distended, tenderness, guarding Extremities exam: Present: other (Negative Homans sign bilaterally). Absent: tenderness, pedal edema, calf tenderness Neurological exam: Present: alert, oriented X3. Absent: motor sensory deficit Psychiatric exam: Present: anxious Skin exam: Present: warm, dry, intact, normal color Course Vital Signs 04/27/21 04/27/21 04/27/21 18:23 20:40 21:09 Temperature 99.0 F Pulse Rate 98 56 L Respiratory 18 18 18 Rate Blood Pressure 112/76 133/73 O2 Sat by Pulse 99 97 Oximetry 04/27/21 22:02 Temperature Pulse Rate 56 L Respiratory 18 Rate Blood Pressure 129/73 O2 Sat by Pulse 96 Oximetry - Reevaluation(s) Reevaluation #1: 04/27/21 22:27 Patient denies development of any new symptoms while in the ED. Patient remains alert and breathing comfortably with a normal room air oxygen saturation. Patient is aware of her test results, and she feels comfortable being discharged home at this time. Patient was counseled about chest pain, dyspnea and palp itations. Patient was clearly explained return and follow-up instructions, and she was instructed to follow up closely with her primary care provider. Patient was also instructed to have a low threshold for return to the emergency department should her symptoms worsen. Patient feels comfortable with this plan. 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 Patient's troponin and d-dimer are negative. Patient's chest x-ray is unremarkable. Patient's potassium was mildly low, and she was repleted with oral potassium in the emergency department, although I do not think that her potassium level of 3.1 is likely the etiology of her symptoms. I do not suspect an emergent medical condition at this time. Will discharge patient home at this time. - Lab Data Result diagrams: 04/27/21 20:49 04/27/21 20:49 Lab Results 04/27/21 04/27/21 04/27/21 Range/Units 20:49 20:49 20:49 WBC 16.2 H (3.8-10.6) k/uL RBC 4.46 (3.80-5.40) m/uL Hgb 14.2 (11.4-16.0) gm/dL Hct 41.8 (34.0-46.0) % MCV 93.8 (80.0-100.0) fL MCH 31.9 (25.0-35.0) pg MCHC 34.0 (31.0-37.0) g/dL RDW 12.5 (11.5-15.5) % Plt Count 227 (150-450) k/uL MPV 10.4 Neutrophils % 76 % Lymphocytes % 15 % Monocytes % 8 % Eosinophils % 0 % Basophils % 0 % Neutrophils # 12.2 H (1.3-7.7) k/uL Lymphocytes # 2.4 (1.0-4.8) k/uL Monocytes # 1.3 H (0-1.0) k/uL Eosinophils # 0.0 (0-0.7) k/uL Basophils # 0.0 (0-0.2) k/uL PT 10.8 (9.0-12.0) sec INR 1.0 (<1.2) APTT 20.3 L (22.0-30.0) sec D-Dimer 0.41 (<0.60) mg/L FEU Sodium 140 (137-145) mmol/L Potassium 3.1 L (3.5-5.1) mmol/L Chloride 104 (98-107) mmol/L Carbon Dioxide 26 (22-30) mmol/L Anion Gap 10 mmol/L BUN 22 H (7-17) mg/dL Creatinine 0.91 (0.52-1.04) mg/dL Est GFR (CKD-EPI)AfAm >90 (>60 ml/min/1.73 sqM) Est GFR (CKD-EPI)NonAf 87 (>60 ml/min/1.73 sqM) Glucose 95 (74-99) mg/dL Calcium 9.4 (8.4-10.2) mg/dL Magnesium 2.2 (1.6-2.3) mg/dL Total Bilirubin 0.2 (0.2-1.3) mg/dL AST 25 (14-36) U/L ALT 50 H (4-34) U/L Alkaline Phosphatase 74 (38-126) U/L Troponin I (0.000-0.034) ng/mL Total Protein 6.0 L (6.3-8.2) g/dL Albumin 3.8 (3.5-5.0) g/dL TSH 0.887 (0.465-4.680) mIU/L HCG, Qual Not Detected Urine Color Urine Appearance (Clear) Urine pH (5.0-8.0) Ur Specific [place] (1.001-1.035) Urine Protein (Negative) Urine Glucose (UA) (Negative) Urine Ketones (Negative) Urine Blood (Negative) Urine Nitrite (Negative) Urine Bilirubin (Negative) Urine Urobilinogen (<2.0) mg/dL Ur Leukocyte Esterase (Negative) 04/27/21 04/27/21 Range/Units 20:49 21:39 WBC (3.8-10.6) k/uL RBC (3.80-5.40) m/uL Hgb (11.4-16.0) gm/dL Hct (34.0-46.0) % MCV (80.0-100.0) fL MCH (25.0-35.0) pg MCHC (31.0-37.0) g/dL RDW (11.5-15.5) % Plt Count (150-450) k/uL MPV Neutrophils % % Lymphocytes % % Monocytes % % Eosinophils % % Basophils % % Neutrophils # (1.3-7.7) k/uL Lymphocytes # (1.0-4.8) k/uL Monocytes # (0-1.0) k/uL Eosinophils # (0-0.7) k/uL Basophils # (0-0.2) k/uL PT (9.0-12.0) sec INR (<1.2) APTT (22.0-30.0) sec D-Dimer (<0.60) mg/L FEU Sodium (137-145) mmol/L Potassium (3.5-5.1) mmol/L Chloride (98-107) mmol/L Carbon Dioxide (22-30) mmol/L Anion Gap mmol/L BUN (7-17) mg/dL Creatinine (0.52-1.04) mg/dL Est GFR (CKD-EPI)AfAm (>60 ml/min/1.73 sqM) Est GFR (CKD-EPI)NonAf (>60 ml/min/1.73 sqM) Glucose (74-99) mg/dL Calcium (8.4-10.2) mg/dL Magnesium (1.6-2.3) mg/dL Total Bilirubin (0.2-1.3) mg/dL AST (14-36) U/L ALT (4-34) U/L Alkaline Phosphatase (38-126) U/L Troponin I <0.012 (0.000-0.034) ng/mL Total Protein (6.3-8.2) g/dL Albumin (3.5-5.0) g/dL TSH (0.465-4.680) mIU/L HCG, Qual Urine Color Yellow Urine Appearance Clear (Clear) Urine pH 6.5 (5.0-8.0) Ur Specific [place] 1.034 (1.001-1.035) Urine Protein Trace H (Negative) Urine Glucose (UA) Negative (Negative) Urine Ketones Negative (Negative) Urine Blood Negative (Negative) Urine Nitrite Negative (Negative) Urine Bilirubin Negative (Negative) Urine Urobilinogen 2.0 (<2.0) mg/dL Ur Leukocyte Esterase Negative (Negative) - Radiology Data Radiology results: report reviewed (Chest x-ray: Normal chest. No change.) Disposition Clinical Impression: Palpitations, Chest pain, Dyspnea, Hypokalemia Disposition: HOME SELF-CARE Condition: Stable Instructions (If sedation given, give patient instructions): Chest Pain (ED), Heart Palpitations (ED), Hypokalemia (ED), Dyspnea (ED) Additional Instructions: Return to the ER immediately should you develop new or worsening pain, increased shortness of breath, feeling dizzy or faint, vomiting, a fever, or new or worsening symptoms. Follow up closely with your primary care provider. Is patient prescribed a controlled substance at d/c from ED?: No Referrals: Parminder Torres DO [Primary Care Provider] - 1-2 days Time of Disposition: 22:30
[2021-04-27 21:22] LABS: HCG,Qualitative Serum Not Detected
[2021-04-27 21:24] LABS: ALT 50 U/L (4-34); AST 25 U/L (14-36); African American GFR (CKD) >90 (>60 ml/min/1.73 sqM); Albumin 3.8 g/dL (3.5-5.0); Alkaline Phosphatase 74 U/L (38-126); Anion Gap 10 mmol/L; Basophils % (A) 0 %; Blood Urea Nitrogen 22 mg/dL (7-17); Calcium 9.4 mg/dL (8.4-10.2); Carbon Dioxide 26 mmol/L (22-30); Chloride 104 mmol/L (98-107); Eosinophils % (A) 0 %; Glucose 95 mg/dL (74-99); HCT 41.8 % (34.0-46.0); HGB 14.2 gm/dL (11.4-16.0); Lymphocytes # (A) 2.4 k/uL (1.0-4.8); Lymphocytes % (A) 15 %; MCH 31.9 pg (25.0-35.0); MCV 93.8 fL (80.0-100.0); Magnesium 2.2 mg/dL (1.6-2.3); Mean Platelet Volume 10.4; Monocytes # (A) 1.3 k/uL (0-1.0); Monocytes % (A) 8 %; Neutrophils # (A) 12.2 k/uL (1.3-7.7); Neutrophils % (A) 76 %; Non-African American GFR(CKD) 87 (>60 ml/min/1.73 sqM); Platelet Count 227 k/uL (150-450); Potassium 3.1 mmol/L (3.5-5.1); RBC 4.46 m/uL (3.80-5.40); RDW 12.5 % (11.5-15.5); Sodium 140 mmol/L (137-145); Total Bilirubin 0.2 mg/dL (0.2-1.3); WBC 16.2 k/uL (3.8-10.6)
[2021-04-27] MEDS ORDERED: POTASSIUM CHLORIDE ER 20 MEQ TAB.ER PO STA (21:27)
[2021-04-27] MEDS ORDERED: ACETAMINOPHEN TAB 500 MG TAB PO STA (21:47)
[2021-04-27 21:54] LABS: Partial Thromboplastin Time 20.3 sec (22.0-30.0); Prothrombin Time 10.8 sec (9.0-12.0)
[2021-04-27 22:07] LABS: Appearance,Urine Clear (Clear); Bilirubin,Urine Negative (Negative); Blood,Urine Negative (Negative); Color,Urine Yellow; Glucose,Urine (UA) Negative (Negative); Ketones,Urine Negative (Negative); Leukocyte Esterase,Urine Negative (Negative); Nitrite,Urine Negative (Negative); PH, Urine 6.5 (5.0-8.0); Protein,Urine Trace (Negative); Specific Gravity,Urine 1.034 (1.001-1.035)
[2021-04-27 22:57] VITALS: BP 134/64; PULSE 70; TEMP 98.5
== END 2021-04-27 22:57 | disposition home or self-care (01) ==
LOC: EC 18:15
DX: R00.2 Palpitations (principal); R06.02 Shortness of breath; R07.9 Chest pain, unspecified; E87.6 Hypokalemia; J45.909 Unspecified asthma, uncomplicated; Z88.5 Allergy status to narcotic agent; Z91.011 Allergy to milk products; Z91.010 Allergy to peanuts; Z88.8 Allergy status to other drugs, medicaments and biological substances; Z91.018 Allergy to other foods; Z88.6 Allergy status to analgesic agent; Z79.51 Long term (current) use of inhaled steroids
CPT/HCPCS: 36415; 71046; 80053; 81003; 83735; 84443; 84484; 84703; 85025; 85379; 85610; 85730; 93005; 99285

== ENCOUNTER 2021-06-03 03:17 | Emergency (ER) | payer OTHER ==
[2021-06-03 03:27] VITALS: TEMP 97.6
--- NOTE | 2021-06-03 03:40 | ED ---
Chest Pain HPI - General Chief Complaint: Chest Pain Stated Complaint: Chest Pain Time Seen by Provider: 06/03/21 03:33 Source: patient Mode of arrival: wheelchair Limitations: no limitations - History of Present Illness MD Complaint: chest pain Onset/Timin -: hour(s) Onset: during rest Pain Location: left chest Pain Radiation: LUE Severity: moderate Quality: aching Consistency: constant Improves With: nothing Worsens With: nothing Treatments Prior to Arrival: none - Related Data Home Medications Medication Instructions Recorded Confirmed Zonisamide 100 mg PO BID@1200,2100 04/06/15 06/13/21 Butalb/APAP/Caff 50-325-40Mg 1 tab PO TID PRN 10/05/18 06/13/21 [Fioricet 50-325-40] Ergocalciferol (Vitamin D2) 1,250 mcg PO MO 10/05/18 06/13/21 [Vitamin D2] Galcanezumab-Gnlm [Emgality Pen] 120 mg SQ Q30D 03/21/19 06/13/21 ondansetron HCL [Zofran] 8 mg PO TID PRN 03/21/19 06/13/21 Desvenlafaxine [Pristiq ER] 100 mg PO DAILY 07/04/20 06/13/21 HYDROcodone/APAP 10-325MG [[place] 1 tab PO TID PRN 07/04/20 06/13/21 10-325] Montelukast Sodium [Singulair] 10 mg PO HS 07/04/20 06/13/21 Levothyroxine Sodium [Synthroid] 50 mcg PO DAILY 08/04/20 06/13/21 Eletriptan HBr [Relpax] 40 mg PO Q24H PRN 10/15/20 06/13/21 Ocrevus 1 dose IV Q180D 10/15/20 06/13/21 Albuterol Sulfate [Proventil Hfa] 2 puff INHALATION RT-QID PRN 10/25/20 06/13/21 Baclofen [Lioresal] 20 mg PO TID 10/25/20 06/13/21 Oxybutynin Chloride [Oxybutynin 10 mg PO HS 10/25/20 06/13/21 Chloride ER] Gabapentin 600 mg PO QID 01/15/21 06/13/21 busPIRone HCL 20 tab PO TID 01/15/21 06/13/21 Apixaban [Eliquis] 5 mg PO BID 04/28/21 06/13/21 Aspirin EC [Ecotrin Low Dose] 81 mg PO HS 04/28/21 06/13/21 Meclizine [Antivert] 25 mg PO TID PRN 04/28/21 06/13/21 Omeprazole 40 mg PO HS 04/28/21 06/13/21 Ondansetron Odt [Zofran ODT] 8 mg PO DAILY 04/28/21 06/13/21 Rimegepant Sulfate [Nurtec Odt] 75 mg PO DAILY PRN 04/28/21 06/13/21 Sucralfate [Carafate] 1 gm PO BID PRN 04/28/21 06/13/21 Previous Rx's Medication Instructions Recorded Metoclopramide [Reglan] 10 mg PO Q6HR PRN #12 tab 06/14/21 Allergies Allergy/AdvReac Type Severity Reaction Status Date / Time codeine Allergy Swelling Verified 06/13/21 23:40 lactose Allergy Unknown Verified 06/13/21 23:40 peanut Allergy Anaphylaxis Verified 06/13/21 23:40 aspartame AdvReac Diarrhea Verified 06/13/21 23:40 fingolimod [From [employer]] AdvReac Abdominal Verified 06/13/21 23:40 Pain ibuprofen AdvReac Abdominal Verified 06/13/21 23:40 Pain Review of Systems ROS Statement: Those systems with pertinent positive or pertinent negative responses have been documented in the HPI. ROS Other: All systems not noted in ROS Statement are negative. Constitutional: Denies: fever, chills Respiratory: Denies: cough, dyspnea Cardiovascular: Reports: as per HPI, chest pain. Denies: palpitations, orthopnea, edema, syncope Gastrointestinal: Denies: abdominal pain, vomiting, diarrhea Genitourinary: Denies: dysuria, hematuria Musculoskeletal: Denies: back pain Skin: Denies: rash Neurological: Denies: headache, weakness EKG Findings - EKG Results: EKG: interpreted by BLAIRE, sinus rhythm (Rate 72 bpm), normal axis, normal QRS - Blocks, [place], Hypertrophy, ST Abn: Repolarization changes or abnormalities: nonspecific abnormality, ST segment, and/or T wave 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, Multiple Sclerosis dx November 2018, pt states left leg weak and uses walker ., Bladder retention, frequent flares with panniculitis (worse since weight loss); pt states last 2 weeks since 10/09/20 chest pain and SOB have been increasing History of Any Multi-Drug Resistant Organisms: MRSA Date of last positivie culture/infection: 11/08/17 MDRO Source:: LT INNER THIGH Past Surgical History: Bariatric Surgery, Cholecystectomy, Ear Surgery Additional Past Surgical History / Comment(s): tubes in ears, EGD, laparoscopic kimberly-en-y 02-08-2018 , EGD with dilation Past Anesthesia/Blood Transfusion Reactions: No Reported Reaction Past Psychological History: Anxiety, Depression, PTSD Smoking Status: Never smoker Past Alcohol Use History: None Reported Past Drug Use History: None Reported - Past Family History Mother Family Medical History: Diabetes Mellitus General Exam Limitations: no limitations General appearance: alert, in no apparent distress, obese Head exam: Present: atraumatic, normocephalic Eye exam: Present: normal appearance. Absent: scleral icterus, conjunctival injection Neck exam: Present: normal inspection Respiratory exam: Present: normal lung sounds bilaterally. Absent: respiratory distress, wheezes, rales, rhonchi, stridor Cardiovascular Exam: Present: regular rate, normal rhythm, normal heart sounds. Absent: systolic murmur, diastolic murmur, rubs, gallop GI/Abdominal exam: Present: soft. Absent: distended, tenderness, guarding, rebound, rigid, mass Extremities exam: Present: normal inspection, normal capillary refill. Absent: pedal edema, calf tenderness Back exam: Present: normal inspection. Absent: CVA tenderness (R), CVA tenderness (L) Neurological exam: Present: alert Skin exam: Present: warm, dry, intact, normal color. Absent: rash Course Vital Signs 06/03/21 06/03/21 06/03/21 03:24 03:59 06:16 Temperature 97.6 F Pulse Rate 77 80 Pulse Rate [ 76 Arabic Translator ] Respiratory 16 18 Rate Blood Pressure 139/82 134/84 O2 Sat by Pulse 99 96 Oximetry Disposition Clinical Impression: Chest pain Disposition: HOME SELF-CARE Condition: Good Instructions (If sedation given, give patient instructions): Chest Pain (ED) Is patient prescribed a controlled substance at d/c from ED?: No Referrals: Parminder Torres DO [Primary Care Provider] - 1-2 days
[2021-06-03] MEDS ORDERED: MORPHINE SULFATE 4 MG/ML SYRINGE IV STA ×2 (03:52→05:21)
[2021-06-03 04:10] LABS: Basophils # (A) 0.1 k/uL (0-0.2); Basophils % (A) 1 %; Eosinophils # (A) 0.5 k/uL (0-0.7); Eosinophils % (A) 6 %; HGB 14.2 gm/dL (11.4-16.0); Lymphocytes # (A) 2.2 k/uL (1.0-4.8); Lymphocytes % (A) 25 %; MCH 32.4 pg (25.0-35.0); MCHC 33.9 g/dL (31.0-37.0); MCV 95.7 fL (80.0-100.0); Mean Platelet Volume 10.1; Monocytes # (A) 0.3 k/uL (0-1.0); Monocytes % (A) 3 %; Neutrophils # (A) 5.7 k/uL (1.3-7.7); Neutrophils % (A) 65 %; Platelet Count 229 k/uL (150-450); RBC 4.39 m/uL (3.80-5.40); RDW 12.4 % (11.5-15.5); WBC 8.8 k/uL (3.8-10.6)
--- NOTE | 2021-06-03 04:15 | XR ---
EXAMINATION TYPE: XR chest 2V DATE OF EXAM: 06/03/2021 COMPARISON: 04/27/2021 HISTORY: Chest pain TECHNIQUE: FINDINGS: Heart and mediastinum are normal. Lungs are clear. Diaphragm is normal. Bony thorax appears normal. IMPRESSION: Normal chest. No change.
[2021-06-03 04:23] LABS: ALT 19 U/L (4-34); AST 23 U/L (14-36); African American GFR (CKD) >90 (>60 ml/min/1.73 sqM); Albumin 4.6 g/dL (3.5-5.0); Alkaline Phosphatase 86 U/L (38-126); Amylase 50 U/L (30-110); Anion Gap 12 mmol/L; Blood Urea Nitrogen 11 mg/dL (7-17); Calcium 9.6 mg/dL (8.4-10.2); Carbon Dioxide 22 mmol/L (22-30); Chloride 107 mmol/L (98-107); Glucose 94 mg/dL (74-99); Lipase 180 U/L (23-300); Magnesium 1.9 mg/dL (1.6-2.3); Non-African American GFR(CKD) >90 (>60 ml/min/1.73 sqM); Potassium 3.8 mmol/L (3.5-5.1); Sodium 141 mmol/L (137-145); Total Bilirubin 0.3 mg/dL (0.2-1.3); Total Protein 6.9 g/dL (6.3-8.2)
[2021-06-03 04:29] LABS: INR 0.9 (<1.2); Partial Thromboplastin Time 24.6 sec (22.0-30.0); Prothrombin Time 9.9 sec (9.0-12.0)
[2021-06-03 06:18] VITALS: BP 134/84; PULSE 80; RESP 18
== END 2021-06-03 06:18 | disposition home or self-care (01) ==
LOC: EC 03:17
DX: R07.9 Chest pain, unspecified (principal); J45.909 Unspecified asthma, uncomplicated; Z86.718 Personal history of other venous thrombosis and embolism; Z91.02 Food additives allergy status; Z91.010 Allergy to peanuts; Z91.011 Allergy to milk products; Z88.6 Allergy status to analgesic agent; Z88.5 Allergy status to narcotic agent
CPT/HCPCS: 36415; 93005; 85379; 83880; 80053; 82150; 83690; 83735; 84484; 85025; 85610; 85730; 71046; 99285; 96374; J2270

== ENCOUNTER 2021-06-13 01:26 | Observation (INO) | payer OTHER ==
--- NOTE | 2021-06-13 01:30 | ED ---
Abdominal Pain HPI - General Source: patient, RN notes reviewed <Bruno Rodriguez - Last Filed: 06/13/21 03:08> <Baudilio Demarco - Last Filed: 06/13/21 04:25> - General Stated Complaint: Abdominal Pain Time Seen by Provider: 06/13/21 01:30 - History of Present Illness Initial Comments: This is a pleasant 18-year-old female with multiple medical issues. She presents to the emergency department with recurrent, pain. Patient complaining of sharp epigastric and left upper quadrant abdominal pain with no significant radiation. Patient has had nausea with no vomiting. Patient states that she alternates between diarrhea and constipation. No hematochezia or melena. Patient also stating that she had a fever earlier today at home. No headache, no changes in vision or hearing, no sore throat or difficulty with speech, no neck pain, no chest pain or shortness of breath, no vomiting, no changes in urination, no numbness or tingling, no extremity pain, no skin rashes or lesions. (Bruno Rodriguez) - Related Data Home Medications Medication Instructions Recorded Confirmed Zonisamide 100 mg PO BID@1200,2100 04/06/15 04/28/21 Butalb/APAP/Caff 50-325-40Mg 1 tab PO TID PRN 10/05/18 04/28/21 [Fioricet 50-325-40] Ergocalciferol (Vitamin D2) 50,000 unit PO MO 10/05/18 04/28/21 [Vitamin D2] Galcanezumab-Gnlm [Emgality Pen] 120 mg SQ Q30D 03/21/19 04/28/21 ondansetron HCL [Zofran] 8 mg PO TID PRN 03/21/19 04/28/21 Desvenlafaxine [Pristiq ER] 100 mg PO DAILY 07/04/20 04/28/21 HYDROcodone/APAP 10-325MG [[place] 1 tab PO TID PRN 07/04/20 04/28/21 10-325] Montelukast Sodium [Singulair] 10 mg PO HS 07/04/20 04/28/21 Levothyroxine Sodium [Synthroid] 50 mcg PO DAILY 08/04/20 04/28/21 Eletriptan HBr [Relpax] 40 mg PO Q24H PRN 10/15/20 04/28/21 Ocrevus 1 dose IV Q180D 10/15/20 04/28/21 Albuterol Sulfate [Proventil Hfa] 2 puff INHALATION RT-QID PRN 10/25/20 04/28/21 Baclofen [Lioresal] 20 mg PO TID 10/25/20 04/28/21 Oxybutynin Chloride [Oxybutynin 10 mg PO HS 10/25/20 04/28/21 Chloride ER] Gabapentin 600 mg PO QID 01/15/21 04/28/21 busPIRone HCL 20 tab PO TID 01/15/21 04/28/21 Apixaban [Eliquis] 5 mg PO BID 04/28/21 04/28/21 Aspirin EC [Ecotrin Low Dose] 81 mg PO HS 04/28/21 04/28/21 Meclizine [Antivert] 25 mg PO TID PRN 04/28/21 04/28/21 Omeprazole 40 mg PO HS 04/28/21 04/28/21 Ondansetron Odt [Zofran Odt] 8 mg PO DAILY PRN 04/28/21 04/28/21 QUEtiapine [SEROquel] 100 mg PO HS 04/28/21 04/28/21 Rimegepant Sulfate [Nurtec Odt] 75 mg PO DAILY PRN 04/28/21 04/28/21 Sucralfate [Carafate] 1 gm PO BID PRN 04/28/21 04/28/21 Allergies Allergy/AdvReac Type Severity Reaction Status Date / Time codeine Allergy Swelling Verified 04/28/21 23:34 lactose Allergy Unknown Verified 04/28/21 23:34 peanut Allergy Anaphylaxis Verified 04/28/21 23:34 aspartame AdvReac Diarrhea Verified 04/28/21 23:34 fingolimod [From [employer]] AdvReac Abdominal Verified 04/28/21 23:34 Pain ibuprofen AdvReac Abdominal Verified 04/28/21 23:34 Pain Review of Systems ROS Other: All systems not noted in ROS Statement are negative. <Bruno Rodriguez - Last Filed: 06/13/21 03:08> ROS Other: All systems not noted in ROS Statement are negative. <Baudilio Demarco - Last Filed: 06/13/21 04:25> ROS Statement: Those systems with pertinent positive or pertinent negative responses have been documented in the HPI. 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, Multiple Sclerosis dx November 2018, pt states left leg weak and uses walker ., Bladder retention, frequent flares with panniculitis (worse since weight loss); pt states last 2 we eks since 10/09/20 chest pain and SOB have been increasing History of Any Multi-Drug Resistant Organisms: MRSA Date of last positivie culture/infection: 11/08/17 MDRO Source:: LT INNER THIGH Past Surgical History: Bariatric Surgery, Cholecystectomy, Ear Surgery Additional Past Surgical History / Comment(s): tubes in ears, EGD, laparoscopic kimberly-en-y 02-08-2018 , EGD with dilation Past Anesthesia/Blood Transfusion Reactions: No Reported Reaction Past Psychological History: Anxiety, Depression, PTSD Smoking Status: Never smoker Past Alcohol Use History: None Reported Past Drug Use History: None Reported - Past Family History Mother Family Medical History: Diabetes Mellitus <Bruno Rodriguez - Last Filed: 06/13/21 03:08> General Exam General appearance: alert, in distress, obese Head exam: Present: atraumatic, normocephalic, normal inspection Eye exam: Present: normal appearance, PERRL, EOMI. Absent: scleral icterus, conjunctival injection, periorbital swelling ENT exam: Present: normal exam, normal oropharynx, mucous membranes moist Neck exam: Present: normal inspection. Absent: tenderness, meningismus, lymphadenopathy Respiratory exam: Present: normal lung sounds bilaterally. Absent: respiratory distress, wheezes, rales, rhonchi, stridor Cardiovascular Exam: Present: regular rate, normal rhythm, normal heart sounds. Absent: systolic murmur, diastolic murmur, rubs, gallop, clicks GI/Abdominal exam: Present: soft, tenderness, guarding, normal bowel sounds, other (Patient has tenderness to palpation in the epigastrium and left upper q uadrant. No evidence of hepatosplenomegaly. No masses). Absent: distended, rebound, rigid, organomegaly, mass Extremities exam: Present: normal inspection, full ROM, normal capillary refill. Absent: tenderness, pedal edema, joint swelling, calf tenderness Back exam: Present: normal inspection Neurological exam: Present: alert, oriented X3, CN II-XII intact Psychiatric exam: Present: normal affect, normal mood Skin exam: Present: warm, dry, intact, normal color. Absent: rash <Bruno Rodriguez - Last Filed: 06/13/21 03:08> - General Exam Comments Initial Comments: Patient appears to be in distress but does not appear to be toxic. Vital signs reviewed. (Bruno Rodriguez) Course Vital Signs 06/13/21 01:34 Temperature 98.5 F Pulse Rate 84 Respiratory 18 Rate Blood Pressure 122/88 O2 Sat by Pulse 97 Oximetry Medical Decision Making - Lab Data Result diagrams: 06/13/21 02:17 06/13/21 02:17 <Bruno Rodriguez - Last Filed: 06/13/21 03:08> - Lab Data Result diagrams: 06/13/21 02:17 06/13/21 02:17 <Baudilio Demarco - Last Filed: 06/13/21 04:25> - Medical Decision Making Patient will be endorsed to the ED attending physician for further evaluation and disposition. (Bruno Rodriguez) - Lab Data Lab Results 06/13/21 06/13/21 06/13/21 Range/Units 02:17 02:17 02:17 WBC 7.4 (3.8-10.6) k/uL RBC 4.22 (3.80-5.40) m/uL Hgb 13.6 (11.4-16.0) gm/dL Hct 41.0 (34.0-46.0) % MCV 97.0 (80.0-100.0) fL MCH 32.2 (25.0-35.0) pg MCHC 33.2 (31.0-37.0) g/dL RDW 12.8 (11.5-15.5) % Plt Count 234 (150-450) k/uL MPV 9.9 Neutrophils % 58 % Lymphocytes % 26 % Monocytes % 6 % Eosinophils % 8 % Basophils % 1 % Neutrophils # 4.2 (1.3-7.7) k/uL Lymphocytes # 1.9 (1.0-4.8) k/uL Monocytes # 0.4 (0-1.0) k/uL Eosinophils # 0.6 (0-0.7) k/uL Basophils # 0.0 (0-0.2) k/uL Sodium 140 (137-145) mmol/L Potassium 4.4 (3.5-5.1) mmol/L Chloride 109 H (98-107) mmol/L Carbon Dioxide 25 (22-30) mmol/L Anion Gap 6 mmol/L BUN 13 (7-17) mg/dL Creatinine 0.82 (0.52-1.04) mg/dL Est GFR (CKD-EPI)AfAm >90 (>60 ml/min/1.73 sqM) Est GFR (CKD-EPI)NonAf >90 (>60 ml/min/1.73 sqM) Glucose 96 (74-99) mg/dL Plasma Lactic Acid [place] 1.1 (0.7-2.0) mmol/L Calcium 9.2 (8.4-10.2) mg/dL Total Bilirubin 0.3 (0.2-1.3) mg/dL AST 22 (14-36) U/L ALT 17 (4-34) U/L Alkaline Phosphatase 85 (38-126) U/L Total Protein 6.1 L (6.3-8.2) g/dL Albumin 4.0 (3.5-5.0) g/dL Lipase 149 (23-300) U/L Urine Color Urine Appearance (Clear) Urine pH (5.0-8.0) Ur Specific [place] (1.001-1.035) Urine Protein (Negative) Urine Glucose (UA) (Negative) Urine Ketones (Negative) Urine Blood (Negative) Urine Nitrite (Negative) Urine Bilirubin (Negative) Urine Urobilinogen (<2.0) mg/dL Ur Leukocyte Esterase (Negative) Urine HCG, Qual (Not Detectd) 06/13/21 06/13/21 Range/Units 03:32 03:32 WBC (3.8-10.6) k/uL RBC (3.80-5.40) m/uL Hgb (11.4-16.0) gm/dL Hct (34.0-46.0) % MCV (80.0-100.0) fL MCH (25.0-35.0) pg MCHC (31.0-37.0) g/dL RDW (11.5-15.5) % Plt Count (150-450) k/uL MPV Neutrophils % % Lymphocytes % % Monocytes % % Eosinophils % % Basophils % % Neutrophils # (1.3-7.7) k/uL Lymphocytes # (1.0-4.8) k/uL Monocytes # (0-1.0) k/uL Eosinophils # (0-0.7) k/uL Basophils # (0-0.2) k/uL Sodium (137-145) mmol/L Potassium (3.5-5.1) mmol/L Chloride (98-107) mmol/L Carbon Dioxide (22-30) mmol/L Anion Gap mmol/L BUN (7-17) mg/dL Creatinine (0.52-1.04) mg/dL Est GFR (CKD-EPI)AfAm (>60 ml/min/1.73 sqM) Est GFR (CKD-EPI)NonAf (>60 ml/min/1.73 sqM) Glucose (74-99) mg/dL Plasma Lactic Acid [place] (0.7-2.0) mmol/L Calcium (8.4-10.2) mg/dL Total Bilirubin (0.2-1.3) mg/dL AST (14-36) U/L ALT (4-34) U/L Alkaline Phosphatase (38-126) U/L Total Protein (6.3-8.2) g/dL Albumin (3.5-5.0) g/dL Lipase (23-300) U/L Urine Color Yellow Urine Appearance Clear (Clear) Urine pH 6.0 (5.0-8.0) Ur Specific [place] 1.038 H (1.001-1.035) Urine Protein Trace H (Negative) Urine Glucose (UA) Negative (Negative) Urine Ketones Negative (Negative) Urine Blood Negative (Negative) Urine Nitrite Negative (Negative) Urine Bilirubin Negative (Negative) Urine Urobilinogen <2.0 (<2.0) mg/dL Ur Leukocyte Esterase Negative (Negative) Urine HCG, Qual Not Detected (Not Detectd) Disposition <Bruno Rodriguez - Last Filed: 06/13/21 03:08> Is patient prescribed a controlled substance at d/c from ED?: No <Baudilio Demarco - Last Filed: 06/13/21 04:25> Clinical Impression: Abdominal pain Disposition: HOME SELF-CARE Condition: Good Instructions (If sedation given, give patient instructions): Abdominal Pain (ED) Referrals: Parminder Torres DO [Primary Care Provider] - 1-2 days
[2021-06-13] MEDS ORDERED: SODIUM CHLORIDE 0.9% 1,000 ML IV STA (01:59)
[2021-06-13] MEDS ORDERED: IOPAMIDOL CONTRAST (ORAL USE) VIAL PO PRN (01:59)
[2021-06-13] MEDS ORDERED: ONDANSETRON 4 MG/2 ML VIAL IVP STA (01:59)
[2021-06-13] MEDS ORDERED: HYDROmorphone 0.5 MG/0.5 ML SYRINGE IVP STA (01:59)
[2021-06-13 02:26] LABS: Basophils % (A) 1 %; Eosinophils # (A) 0.6 k/uL (0-0.7); Eosinophils % (A) 8 %; HGB 13.6 gm/dL (11.4-16.0); Lymphocytes # (A) 1.9 k/uL (1.0-4.8); Lymphocytes % (A) 26 %; MCH 32.2 pg (25.0-35.0); MCHC 33.2 g/dL (31.0-37.0); Mean Platelet Volume 9.9; Monocytes # (A) 0.4 k/uL (0-1.0); Monocytes % (A) 6 %; Neutrophils # (A) 4.2 k/uL (1.3-7.7); Neutrophils % (A) 58 %; Platelet Count 234 k/uL (150-450); RBC 4.22 m/uL (3.80-5.40); RDW 12.8 % (11.5-15.5); WBC 7.4 k/uL (3.8-10.6)
[2021-06-13 02:39] LABS: ALT 17 U/L (4-34); AST 22 U/L (14-36); African American GFR (CKD) >90 (>60 ml/min/1.73 sqM); Alkaline Phosphatase 85 U/L (38-126); Anion Gap 6 mmol/L; Blood Urea Nitrogen 13 mg/dL (7-17); Calcium 9.2 mg/dL (8.4-10.2); Carbon Dioxide 25 mmol/L (22-30); Chloride 109 mmol/L (98-107); Glucose 96 mg/dL (74-99); Lipase 149 U/L (23-300); Non-African American GFR(CKD) >90 (>60 ml/min/1.73 sqM); Potassium 4.4 mmol/L (3.5-5.1); Sodium 140 mmol/L (137-145); Total Bilirubin 0.3 mg/dL (0.2-1.3); Total Protein 6.1 g/dL (6.3-8.2)
--- NOTE | 2021-06-13 02:54 | XR ---
EXAMINATION TYPE: XR chest 1V portable DATE OF EXAM: 06/13/2021 COMPARISON: 06/03/2021 HISTORY: Chest pain TECHNIQUE: Single view FINDINGS: Heart and mediastinum are normal. Lungs are clear. Diaphragm is normal. Bony thorax appears normal. IMPRESSION: Multiple chest. No change.
--- NOTE | 2021-06-13 03:40 | CT ---
EXAMINATION TYPE: CT abdomen pelvis w con DATE OF EXAM: 06/13/2021 COMPARISON: 08/01/2020 HISTORY: LUQ pain w/vomitting. H/O bariatric sx CT DLP: 3657 mGycm Automated exposure control for dose reduction was used. CONTRAST: Performed with IV Contrast, patient injected with 100 ML mL of Isovue 300. Images obtained from the diaphragm to the floor the pelvis with oral and IV contrast. Lung bases are clear. There is no pleural effusion. There is gastric bariatric surgery. There is a ga strojejunal bypass. Heart size is normal. There is no pericardial effusion. Liver spleen pancreas appear intact. The bile ducts are not dilated. Gallbladder is absent. There is no adrenal mass. Kidneys show satisfactory contrast opacification. There is no hydronephrosi s. Ureters are not dilated. There is no retroperitoneal adenopathy. Appendix is posterior and appears normal. Bladder distends smoothly. There is no inguinal hernia. There is no free fluid in the pelvis . Lumbar vertebrae have normal spacing and alignment. Posterior elements are intact. There is no compre ssion fracture. Bony pelvis is intact. The hip joints are intact. There is no mesenteric edema. There is no ascites or free air. There is no sign of a bowel obstructio n. Uterus is anteverted. There is no evidence of a pelvic mass. IMPRESSION: Periarticular surgery. No sign of acute abdomen and pelvis. No adverse change compared to the old exa m.
[2021-06-13 03:44] LABS: Appearance,Urine Clear (Clear); Bilirubin,Urine Negative (Negative); Blood,Urine Negative (Negative); Color,Urine Yellow; Glucose,Urine (UA) Negative (Negative); Ketones,Urine Negative (Negative); Leukocyte Esterase,Urine Negative (Negative); Nitrite,Urine Negative (Negative); Protein,Urine Trace (Negative); Specific Gravity,Urine 1.038 (1.001-1.035); Urobilinogen,Urine <2.0 mg/dL (<2.0)
[2021-06-13] MEDS ORDERED: MORPHINE SULFATE 4 MG/ML SYRINGE IV STA (06:48)
[2021-06-13] MEDS ORDERED: ONDANSETRON 4 MG/2 ML VIAL IVP PRN (06:49)
[2021-06-13] MEDS ORDERED: NALOXONE 0.4 MG/ML 1 ML VIAL IV PRN (06:49)
[2021-06-13] MEDS ORDERED: SODIUM CHLORIDE 0.9% 1,000 ML IV SCH (07:00)
[2021-06-13 07:25] VITALS: TEMP 98.1
[2021-06-13 08:09] VITALS: BP 143/92; PULSE 77; RESP 18
[2021-06-13] MEDS ORDERED: IV FLUID CONTINUATION 1,000 ML IV ONE (08:50)
[2021-06-13] MEDS ORDERED: PROPOFOL 10 MG/ML 20 ML VIAL IV ONE (08:51)
--- NOTE | 2021-06-13 09:03 | P.GSHP ---
History of Present Illness H&P Date: 06/13/21 CHIEF COMPLAINT: Abdominal pain, gastric bypass history of ulcers HISTORY OF PRESENT ILLNESS: Britt Albarran is a 26-year-old female status post gastric bypass 02/08/2018. She is over 4 years out. She presented to the emergency room multiple times and last 6 months due to atypical chest pain i ncluding upper abdominal pain. Patient has pertinent history of gastric ulcers including adhesions. Due to severity of abdominal pain, patient is admitted. Her highest weight was 395 pounds. Today she comes in weighing 372 pounds from 359 pounds, 1 year ago. She has gained 13 pounds in 1 year. At her height of 5 foot 7.25 inches, her ideal body weight is 158 pounds. She has lost 23 pounds l ifetime. Percent excess weight loss 9%. Her highest body mass index was 61.5. Today her BMI is 58.4 PAST MEDICAL HISTORY: 1. Morbid obesity due to excess calories 2. Body mass index 61.5, highest. 3. Irritable bowel syndrome. 4. Obstructive sleep apnea. 5. Osteoarthritis of the hips 6. Hypertensive heart disease. 7. Gastroesophageal reflux disease 8. Anxiety. 9. Depression. 10. Migraines. 11. Overactive bladder. 12. Chronic back pain. 13. Degenerative joint disease. 14. Asthma. 15. Hypothyroidism 16. Gastroduodenal ulcers PAST SURGICAL HISTORY: 1. Cholecystectomy 2. Eustachian tubes. 3. Upper endoscopy 4. Gastric bypass 5. Upper endoscopy 6. Lysis of adhesions HOME MEDICATIONS: 1. Reviewed and please see list ALLERGIES: 1. Reviewed and please see last SOCIAL HISTORY: No active tobacco use. Has limited financial resources. FAMILY HISTORY: No family history of ulcerative colitis disease or Crohn's disease. She does have a family history of morbid obesity. She denies any lupus in her family. No reports of stomach or esophageal cancer. She has a family history of diabetes. REVIEW OF ORGAN SYSTEMS: CONSTITUTIONAL: Her highest weight was 395 pounds. At her height of 5 foot 7.25 inches, her ideal body weight is 158 pounds. Her highest body mass index was 61.5. HEENT: Denies any active troubles with hearing. Has troubles with swallowing. Wears glasses. ENDOCRINE: No diabetes. Has hypothyroidism. CARDIOVASCULAR: Reports chest pain. RESPIRATORY: Has somnolence including snoring and sleep apnea. No asthma. GI: Denies any bright red blood per rectum or constipation. Has troubles swallowing. Has change in bowel habits MUSCULOSKELETAL: Has lower back pain and joint pain. Has osteoarthritis of the hips and knees. NEURO: Has headaches. No seizure disorders. Has multiple sclerosis. PSYCH: Has depression without suicidal ideation. Has anxiety. RHEUMATOLOGIC: No lupus. No rheumatoid arthritis. Has multiple sclerosis HEMATOLOGIC: Denies any abnormal bleeding or bruising. No personal history of DVTs. SKIN: Has panniculitis. No skin cancer. : Has bladder urgency. Reports irregular menses. PHYSICAL EXAM: VITAL SIGNS: Reviewed. GENERAL: Well-developed female in no acute distress. HEENT: No scleral icterus. Extraocular movements grossly intact. Hears conversational speech. No nasal drainage. NECK: Supple without lymphadenopathy. CHEST: Nonlabored respirations with equal bilateral excursions. CARDIOVASCULAR: Regular rate. Distal 2+ pulses. ABDOMEN: Obese, soft, nondistended. Tender epigastrium, left upper quadrant, modest MUSCULOSKELETAL: No clubbing, cyanosis. No pitting edema. NEURO: No focal or lateralizing signs. Cranial nerves 2 through 12 grossly within normal limits. PSYCH: Appropriate affect. Alert and oriented to person, place and time. SKIN: Fair skin turgor. Well perfused. STUDIES: CT of the abdomen and pelvis and independently reviewed demonstrating stenosis at gastrojejunal anastomosis. No bowel obstruction. Moderate retained stool burden. LABS: WBC normal. LFTs within normal limits. COVID negative ASSESSMENT: 1. Upper abdominal pain with history of gastric ulcers 2. Left upper quadrant abdominal pain, history of peritoneal adhesion 3. Morbid obesity due to excess calories 4. Body mass index 61.5 down to 56.4 5. Irritable bowel syndrome. 6. Obstructive sleep apnea. 7. Osteoarthritis of the hips 8. Hypertensive heart disease. 9. Gastroesophageal reflux disease 10. Anxiety. 11. Depression. 12. Migraines. 13. Overactive bladder. 14. Chronic back pain. 15. Degenerative joint disease. 16. Asthma. 17. Multiple sclerosis 18. Weight gain following bariatric procedure 19. Hypothyroidism 20. History of gastrojejunal ulcer PLAN: 1. 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, Multiple Sclerosis dx November 2018, pt states left leg weak and uses walker ., Bladder retention, frequent flares with panniculitis (worse since weight loss); pt states last 2 weeks since 10/09/20 chest pain and SOB have been increasing History of Any Multi-Drug Resistant Organisms: MRSA Date of last positivie culture/infection: 11/08/17 MDRO Source:: LT INNER THIGH Past Surgical History: Bariatric Surgery, Cholecystectomy, Ear Surgery Additional Past Surgical History / Comment(s): tubes in ears, EGD, laparoscopic [id number] 02-08-2018 , EGD with dilation Past Anesthesia/Blood Transfusion Reactions: No Reported Reaction Past Psychological History: Anxiety, Depression, PTSD Smoking Status: Never smoker Past Alcohol Use History: None Reported Past Drug Use History: None Reported - Past Family History Mother Family Medical History: Diabetes Mellitus Medications and Allergies Home Medications Medication Instructions Recorded Confirmed Type Zonisamide 100 mg PO BID@1200,2100 04/06/15 06/13/21 History Butalb/APAP/Caff 50-325-40Mg 1 tab PO TID PRN 10/05/18 06/13/21 History [Fioricet 50-325-40] Ergocalciferol (Vitamin D2) 1,250 mcg PO MO 10/05/18 06/13/21 History [Vitamin D2] Galcanezumab-Gnlm [Emgality Pen] 120 mg SQ Q30D 03/21/19 06/13/21 History ondansetron HCL [Zofran] 8 mg PO TID PRN 03/21/19 06/13/21 History Desvenlafaxine [Pristiq ER] 100 mg PO DAILY 07/04/20 06/13/21 History HYDROcodone/APAP 10-325MG [[place] 1 tab PO TID PRN 07/04/20 06/13/21 History 10-325] Montelukast Sodium [Singulair] 10 mg PO HS 07/04/20 06/13/21 History Levothyroxine Sodium [Synthroid] 50 mcg PO DAILY 08/04/20 06/13/21 History Eletriptan HBr [Relpax] 40 mg PO Q24H PRN 10/15/20 06/13/21 History Ocrevus 1 dose IV Q180D 10/15/20 06/13/21 History Albuterol Sulfate [Proventil Hfa] 2 puff INHALATION RT-QID PRN 10/25/20 06/13/21 History Baclofen [Lioresal] 20 mg PO TID 10/25/20 06/13/21 History Oxybutynin Chloride [Oxybutynin 10 mg PO HS 10/25/20 06/13/21 History Chloride ER] Gabapentin 600 mg PO QID 01/15/21 06/13/21 History busPIRone HCL 20 tab PO TID 01/15/21 06/13/21 History Apixaban [Eliquis] 5 mg PO BID 04/28/21 06/13/21 History Aspirin EC [Ecotrin Low Dose] 81 mg PO HS 04/28/21 06/13/21 History Meclizine [Antivert] 25 mg PO TID PRN 04/28/21 06/13/21 History Omeprazole 40 mg PO HS 04/28/21 06/13/21 History Ondansetron Odt [Zofran Odt] 8 mg PO DAILY 04/28/21 06/13/21 History Rimegepant Sulfate [Nurtec Odt] 75 mg PO DAILY PRN 04/28/21 06/13/21 History Sucralfate [Carafate] 1 gm PO BID PRN 04/28/21 06/13/21 History Allergies Allergy/AdvReac Type Severity Reaction Status Date / Time codeine Allergy Swelling Verified 04/28/21 23:34 lactose Allergy Unknown Verified 04/28/21 23:34 peanut Allergy Anaphylaxis Verified 04/28/21 23:34 aspartame AdvReac Diarrhea Verified 04/28/21 23:34 fingolimod [From Groxis] AdvReac Abdominal Verified 04/28/21 23:34 Pain ibuprofen AdvReac Abdominal Verified 04/28/21 23:34 Pain Surgical - Exam Vital Signs Temp Pulse Resp BP Pulse Ox 98.5 F 84 18 122/88 97 06/13/21 01:34 06/13/21 01:34 06/13/21 01:34 06/13/21 01:34 06/13/21 01:34 Results - Labs 06/13/21 02:17 06/13/21 02:17 Abnormal Lab Results - Last 24 Hours (Table) 06/13/21 06/13/21 Range/Units 02:17 03:32 Chloride 109 H (98-107) mmol/L Total Protein 6.1 L (6.3-8.2) g/dL Ur Specific [place] 1.038 H (1.001-1.035) Urine Protein Trace H (Negative) Diabetes panel 06/13/21 Range/Units 02:17 Sodium 140 (137-145) mmol/L Potassium 4.4 (3.5-5.1) mmol/L Chloride 109 H (98-107) mmol/L Carbon Dioxide 25 (22-30) mmol/L BUN 13 (7-17) mg/dL Creatinine 0.82 (0.52-1.04) mg/dL Glucose 96 (74-99) mg/dL Calcium 9.2 (8.4-10.2) mg/dL AST 22 (14-36) U/L ALT 17 (4-34) U/L Alkaline Phosphatase 85 (38-126) U/L Total Protein 6.1 L (6.3-8.2) g/dL Albumin 4.0 (3.5-5.0) g/dL Calcium panel 06/13/21 Range/Units 02:17 Calcium 9.2 (8.4-10.2) mg/dL Albumin 4.0 (3.5-5.0) g/dL Pituitary panel 06/13/21 Range/Units 02:17 Sodium 140 (137-145) mmol/L Potassium 4.4 (3.5-5.1) mmol/L Chloride 109 H (98-107) mmol/L Carbon Dioxide 25 (22-30) mmol/L BUN 13 (7-17) mg/dL Creatinine 0.82 (0.52-1.04) mg/dL Glucose 96 (74-99) mg/dL Calcium 9.2 (8.4-10.2) mg/dL Adrenal panel 06/13/21 Range/Units 02:17 Sodium 140 (137-145) mmol/L Potassium 4.4 (3.5-5.1) mmol/L Chloride 109 H (98-107) mmol/L Carbon Dioxide 25 (22-30) mmol/L BUN 13 (7-17) mg/dL Creatinine 0.82 (0.52-1.04) mg/dL Glucose 96 (74-99) mg/dL Calcium 9.2 (8.4-10.2) mg/dL Total Bilirubin 0.3 (0.2-1.3) mg/dL AST 22 (14-36) U/L ALT 17 (4-34) U/L Alkaline Phosphatase 85 (38-126) U/L Total Protein 6.1 L (6.3-8.2) g/dL Albumin 4.0 (3.5-5.0) g/dL Assessment and Plan (1) Gastric ulcer Current Visit: Yes Status: Acute Code(s): K25.9 - GASTRIC ULCER, UNSP ACUTE OR CHRONIC, W/O HEMOR OR PERF SNOMED Code(s): 436445006 (2) Gastritis Current Visit: Yes Status: Acute Code(s): K29.70 - GASTRITIS, UNSPECIFIED, WITHOUT BLEEDING SNOMED Code(s): 3077325 (3) Upper abdominal pain Current Visit: Yes Status: Acute Code(s): R10.10 - UPPER ABDOMINAL PAIN, UNSPECIFIED SNOMED Code(s): 23079022 (4) BMI 50.0-59.9, adult Current Visit: Yes Status: Acute Code(s): Z68.43 - BODY MASS INDEX [BMI] 50.0-59.9, ADULT SNOMED Code(s): 082027351 (5) Gastric bypass status for obesity Current Visit: No Status: Acute Code(s): Z98.84 - BARIATRIC SURGERY STATUS SNOMED Code(s): 535755090 (6) Peritoneal adhesions Current Visit: No Status: Acute Code(s): K66.0 - PERITONEAL ADHESIONS (POSTP ROCEDURAL) (POSTINFECTION) SNOMED Code(s): 74089103
[2021-06-13] MEDS ORDERED: NON FORMULARY DRUG (Rimegepant Sulfate [Nurtec Odt] 75 MG Tablet) PO PRN (09:04)
[2021-06-13] MEDS ORDERED: SUMAtriptan succinate 50 MG TAB PO PRN (09:04)
[2021-06-13] MEDS ORDERED: SUCRALFATE 1 GM TAB PO PRN (09:04)
[2021-06-13] MEDS ORDERED: ALBUTEROL NEBULIZED 2.5 MG/3 ML INHALATION PRN (09:04)
[2021-06-13] MEDS ORDERED: MECLIZINE 25 MG TAB PO PRN (09:04)
[2021-06-13] MEDS ORDERED: BUTALB/APAP/CAFF 50-325-40MG TAB PO PRN (09:04)
[2021-06-13] MEDS ORDERED: ONDANSETRON ODT 8 MG TAB.RAPDIS PO PRN (09:04)
[2021-06-13] MEDS ORDERED: HYDROcodone/APAP 10-325MG 1 EACH TAB PO PRN (09:04)
[2021-06-13] MEDS ORDERED: OCREVUS IV SCH (09:15)
--- NOTE | 2021-06-13 09:38 | P.DS ---
Providers Date of admission: 06/13/21 06:50 Expected date of discharge: 06/13/21 Attending physician: Evie Garg Primary care physician: Parminder Torres - Discharge Diagnosis(es) (1) Gastric ulcer Current Visit: Yes Status: Acute (2) Gastritis Current Visit: Yes Status: Acute (3) Upper abdominal pain Current Visit: Yes Status: Acute (4) BMI 50.0-59.9, adult Current Visit: Yes Status: Acute (5) Gastric bypass status for obesity Current Visit: No Status: Acute (6) Peritoneal adhesions Current Visit: No Status: Acute Hospital Course: Patient is a 26-year-old female presented with moderate severe upper abdominal pain and history of atypical chest pain. She has history of gastrojejunal ulcers. Upper endoscopy performed demonstrated gastritis of her gastric pouch. Patient was placed on diet. Patient has pre-existing history of peritoneal adhesions. Due to active anticoagulation, outpatient management advised. Patient stable for discharge. Patient Condition at Discharge: Stable Plan - Discharge Summary Discharge Rx Participant: No New Discharge Prescriptions: Continue Zonisamide 100 mg PO BID@1200,2100 Butalb/APAP/Caff 50-325-40Mg [Fioricet 50-325-40] 1 tab PO TID PRN PRN Reason: Migraine Headache Ergocalciferol (Vitamin D2) [Vitamin D2] 1,250 mcg PO MO ondansetron HCL [Zofran] 8 mg PO TID PRN PRN Reason: Nausea Galcanezumab-Gnlm [Emgality Pen] 120 mg SQ Q30D Desvenlafaxine [Pristiq ER] 100 mg PO DAILY Montelukast Sodium [Singulair] 10 mg PO HS HYDROcodone/APAP 10-325MG [[place] 10-325] 1 tab PO TID PRN PRN Reason: Pain Levothyroxine Sodium [Synthroid] 50 mcg PO DAILY Ocrevus 1 dose IV Q180D Baclofen [Lioresal] 20 mg PO TID Oxybutynin Chloride [Oxybutynin Chloride ER] 10 mg PO HS busPIRone HCL 20 tab PO TID Gabapentin 600 mg PO QID Sucralfate [Carafate] 1 gm PO BID PRN PRN Reason: Gi Upset Aspirin EC [Ecotrin Low Dose] 81 mg PO HS Apixaban [Eliquis] 5 mg PO BID Eletriptan HBr [Relpax] 40 mg PO Q24H PRN PRN Reason: Migraine Headache Albuterol Sulfate [Proventil Hfa] 2 puff INHALATION RT-QID PRN PRN Reason: Shortness Of Breath Ondansetron Odt [Zofran ODT] 8 mg PO DAILY Rimegepant Sulfate [Nurtec Odt] 75 mg PO DAILY PRN PRN Reason: Migraine Headache Omeprazole 40 mg PO HS Meclizine [Antivert] 25 mg PO TID PRN PRN Reason: Vertigo Discharge Medication List Zonisamide 100 mg PO BID@1200,2100 04/06/15 [History] Butalb/APAP/Caff 50-325-40Mg [Fioricet 50-325-40] 1 tab PO TID PRN 10/05/18 [History] Ergocalciferol (Vitamin D2) [Vitamin D2] 1,250 mcg PO MO 10/05/18 [History] Galcanezumab-Gnlm [Emgality Pen] 120 mg SQ Q30D 03/21/19 [History] ondansetron HCL [Zofran] 8 mg PO TID PRN 03/21/19 [History] Desvenlafaxine [Pristiq ER] 100 mg PO DAILY 07/04/20 [History] HYDROcodone/APAP 10-325MG [[place] 10-325] 1 tab PO TID PRN 07/04/20 [History] Montelukast Sodium [Singulair] 10 mg PO HS 07/04/20 [History] Levothyroxine Sodium [Synthroid] 50 mcg PO DAILY 08/04/20 [History] Eletriptan HBr [Relpax] 40 mg PO Q24H PRN 10/15/20 [History] Ocrevus 1 dose IV Q180D 10/15/20 [History] Albuterol Sulfate [Proventil Hfa] 2 puff INHALATION RT-QID PRN 10/25/20 [History] Baclofen [Lioresal] 20 mg PO TID 10/25/20 [History] Oxybutynin Chloride [Oxybutynin Chloride ER] 10 mg PO HS 10/25/20 [History] Gabapentin 600 mg PO QID 01/15/21 [History] busPIRone HCL 20 tab PO TID 01/15/21 [History] Apixaban [Eliquis] 5 mg PO BID 04/28/21 [History] Aspirin EC [Ecotrin Low Dose] 81 mg PO HS 04/28/21 [History] Meclizine [Antivert] 25 mg PO TID PRN 04/28/21 [History] Omeprazole 40 mg PO HS 04/28/21 [History] Ondansetron Odt [Zofran ODT] 8 mg PO DAILY 04/28/21 [History] Rimegepant Sulfate [Nurtec Odt] 75 mg PO DAILY PRN 04/28/21 [History] Sucralfate [Carafate] 1 gm PO BID PRN 04/28/21 [History] Follow up Appointment(s)/Referral(s): Parminder Torres DO [Primary Care Provider] [facility] [place] [facility]21 Patient Instructions/Handouts: Abdominal Pain (ED), Peptic Ulcer (IP) Discharge Disposition: HOME SELF-CARE
--- NOTE | 2021-06-13 09:42 | P.PCN ---
Date of Procedure: 06/13/21 Description of Procedure: PREOPERATIVE DIAGNOSES: 1. History of gastric ulcers. 2. Severe upper abdominal epigastric abdominal pain 3. History of gastric bypass 4. Morbid obesity due to excess calories, BMI 58.4 POSTOPERATIVE DIAGNOSES: 1. History of gastric ulcers. 2. Severe upper abdominal epigastric abdominal pain 3. History of gastric bypass 4. Morbid obesity due to excess calories, BMI 58.4 PROCEDURE PERFORMED: Esophagogastrojejunoscopy with biopsy of gastric pouch. SURGEON: Evie Garg MD ANESTHESIA: MAC. INDICATIONS: The patient is a 26-year-old male with prior history of Cecil-en-Y gastric bypass An gastric ulcers. She comes in with severe epigastric and upper abdominal pain. With history of Cecil-en-Y gastric bypass, upper endoscopy was offered for further evaluation and management. DESCRIPTION: Patient was brought to the endoscopy suite and laid in the left lateral decubitus position. After adequate IV sedation, a bite block was placed. An Olympus gastroscope was passed along the posterior oropharynx down to the distal esophagus where the squamocolumnar junction was found intact. Gastritis of the gastric pouch was found biopsies obtained. The scope was advanced 60 cm from the incisors. No evidence of foreign body was found. No evidence of active gastrojejunal ulcerations were encountered. The GI tract was desufflated. The patient tolerated the procedure well. FINDINGS: 1. No acute gastrojejunal ulceration. 2. No foreign body found along the anastomosis. PLAN: 1. Recommend upper endoscopy as needed.
[2021-06-13] MEDS ORDERED: ZONISAMIDE 100 MG CAP PO SCH (12:00)
[2021-06-13] MEDS ORDERED: GABAPENTIN 300 MG CAP PO SCH (13:00)
[2021-06-13] MEDS ORDERED: BACLOFEN 10 MG TAB PO SCH (16:00)
[2021-06-13] MEDS ORDERED: busPIRone HCl 10 MG TAB PO SCH (16:00)
[2021-06-13] MEDS ORDERED: ASPIRIN 81 MG PO SCH (21:00)
[2021-06-13] MEDS ORDERED: OXYBUTYNIN 10 MG TAB.ER.24 PO SCH (21:00)
[2021-06-13] MEDS ORDERED: MONTELUKAST 10 MG TAB PO SCH (21:00)
[2021-06-13] MEDS ORDERED: PANTOPRAZOLE 40 MG TABLET PO SCH (21:00)
[2021-06-14] MEDS ORDERED: LEVOTHYROXINE 50 MCG TAB PO SCH (06:30)
[2021-06-14] MEDS ORDERED: DESVENLAFAXINE SUCCINATE 50 MG TAB.ER.24H PO SCH (09:00)
[2021-06-14] MEDS ORDERED: ONDANSETRON ODT 8 MG TAB.RAPDIS PO SCH (09:00)
[2021-06-17] MEDS ORDERED: ERGOCALCIFEROL 1,250 MCG (50,000 IU) CAPSULE PO SCH (09:00)
[2021-07-09] MEDS ORDERED: NON FORMULARY DRUG (Galcanezumab-Gnlm [Emgality Pen] 120 MG/ML Pen.Injctr) SQ SCH (09:00)
== END 2021-06-13 11:29 | disposition home or self-care (01) ==
LOC: EC 01:26 → 6NMEDSUR 06:50
PROVIDERS: ADMIT Surgery Plastic and Reconstructive Surgery; ATTEND Surgery Plastic and Reconstructive Surgery
DX: K29.50 Unspecified chronic gastritis without bleeding (principal); I11.9 Hypertensive heart disease without heart failure; G43.909 Migraine, unspecified, not intractable, without status migrainosus; E03.9 Hypothyroidism, unspecified; G35 Multiple sclerosis; K58.0 Irritable bowel syndrome with diarrhea; G47.33 Obstructive sleep apnea (adult) (pediatric); K21.9 Gastro-esophageal reflux disease without esophagitis; N32.81 Overactive bladder; M16.0 Bilateral primary osteoarthritis of hip; M17.0 Bilateral primary osteoarthritis of knee; J45.909 Unspecified asthma, uncomplicated; G89.29 Other chronic pain; M54.9 Dorsalgia, unspecified; M79.3 Panniculitis, unspecified; K66.0 Peritoneal adhesions (postprocedural) (postinfection); R50.9 Fever, unspecified; E66.01 Morbid (severe) obesity due to excess calories; Z68.43 Body mass index [BMI] 50.0-59.9, adult; F32.A Depression, unspecified; F43.10 Post-traumatic stress disorder, unspecified; F41.9 Anxiety disorder, unspecified; Z20.822 Contact with and (suspected) exposure to COVID-19; Z79.890 Hormone replacement therapy; Z79.01 Long term (current) use of anticoagulants; Z79.82 Long term (current) use of aspirin; Z79.899 Other long term (current) drug therapy; Z88.6 Allergy status to analgesic agent; Z88.5 Allergy status to narcotic agent; Z91.010 Allergy to peanuts; Z88.8 Allergy status to other drugs, medicaments and biological substances; Z91.048 Other nonmedicinal substance allergy status; Z87.11 Personal history of peptic ulcer disease; Z98.84 Bariatric surgery status; Z90.49 Acquired absence of other specified parts of digestive tract; Z86.711 Personal history of pulmonary embolism; Z86.718 Personal history of other venous thrombosis and embolism; Z86.69 Personal history of other diseases of the nervous system and sense organs; Z86.14 Personal history of Methicillin resistant Staphylococcus aureus infection; Z98.890 Other specified postprocedural states; Z83.3 Family history of diabetes mellitus; Z83.49 Family history of other endocrine, nutritional and metabolic diseases
CPT/HCPCS: 96361; 96374; 96375; 99285; 36415; 88305; 80053; 83605; 83690; 85025; 81003; 81025; 87040; 87635; 71045; 74177; 43239; G0378; J2270; J2405; J2704; J1170; Q9967

== ENCOUNTER 2021-06-13 23:39 | Emergency (ER) | payer OTHER ==
[2021-06-13 23:43] VITALS: TEMP 99.1
--- NOTE | 2021-06-14 00:13 | ED ---
Abdominal Pain HPI - General Chief Complaint: Abdominal Pain Stated Complaint: Abd Pain Time Seen by Provider: 06/14/21 00:00 Source: patient, RN notes reviewed Mode of arrival: ambulatory Limitations: no limitations - History of Present Illness Initial Comments: This is a pleasant 26-year-old female who again presents to the emergency department for abdominal pain. Patient has had several ER visits over the past year. Patient has a history of gastric bypass. Patient was actually here yesterday and was admitted for observation and saw her surgeon this morning. Patient had a computed tomography scan done yesterday as well as an upper endoscopy by Dr. Garg. Patient was released this morning. Patient states she is having the same symptomology. Patient states she was unable to hold down liquids this evening and started vomiting. Patient does have Zofran at home. Patient also has hydrocodone 10/325 at home. No headache, no fever or chills, no changes in vision or hearing, no sore throat or difficulty with speech, no neck pain, no chest pain or shortness of breath, no hematemesis or coffee-ground emesis, no changes in urination or bowel movements, no numbness or tingling, no extremity pain, no skin rashes or lesions. - Related Data Home Medications Medication Instructions Recorded Confirmed Zonisamide 100 mg PO BID@1200,2100 04/06/15 06/13/21 Butalb/APAP/Caff 50-325-40Mg 1 tab PO TID PRN 10/05/18 06/13/21 [Fioricet 50-325-40] Ergocalciferol (Vitamin D2) 1,250 mcg PO MO 10/05/18 06/13/21 [Vitamin D2] Galcanezumab-Gnlm [Emgality Pen] 120 mg SQ Q30D 03/21/19 06/13/21 ondansetron HCL [Zofran] 8 mg PO TID PRN 03/21/19 06/13/21 Desvenlafaxine [Pristiq ER] 100 mg PO DAILY 07/04/20 06/13/21 HYDROcodone/APAP 10-325MG [[place] 1 tab PO TID PRN 07/04/20 06/13/21 10-325] Montelukast Sodium [Singulair] 10 mg PO HS 07/04/20 06/13/21 Levothyroxine Sodium [Synthroid] 50 mcg PO DAILY 08/04/20 06/13/21 Eletriptan HBr [Relpax] 40 mg PO Q24H PRN 10/15/20 06/13/21 Ocrevus 1 dose IV Q180D 10/15/20 06/13/21 Albuterol Sulfate [Proventil Hfa] 2 puff INHALATION RT-QID PRN 10/25/20 06/13/21 Baclofen [Lioresal] 20 mg PO TID 10/25/20 06/13/21 Oxybutynin Chloride [Oxybutynin 10 mg PO HS 10/25/20 06/13/21 Chloride ER] Gabapentin 600 mg PO QID 01/15/21 06/13/21 busPIRone HCL 20 tab PO TID 01/15/21 06/13/21 Apixaban [Eliquis] 5 mg PO BID 04/28/21 06/13/21 Aspirin EC [Ecotrin Low Dose] 81 mg PO HS 04/28/21 06/13/21 Meclizine [Antivert] 25 mg PO TID PRN 04/28/21 06/13/21 Omeprazole 40 mg PO HS 04/28/21 06/13/21 Ondansetron Odt [Zofran ODT] 8 mg PO DAILY 04/28/21 06/13/21 Rimegepant Sulfate [Nurtec Odt] 75 mg PO DAILY PRN 04/28/21 06/13/21 Sucralfate [Carafate] 1 gm PO BID PRN 04/28/21 06/13/21 Previous Rx's Medication Instructions Recorded Metoclopramide [Reglan] 10 mg PO Q6HR PRN #12 tab 06/14/21 Allergies Allergy/AdvReac Type Severity Reaction Status Date / Time codeine Allergy Swelling Verified 06/13/21 23:40 lactose Allergy Unknown Verified 06/13/21 23:40 peanut Allergy Anaphylaxis Verified 06/13/21 23:40 aspartame AdvReac Diarrhea Verified 06/13/21 23:40 fingolimod [From [email or web address]] AdvReac Abdominal Verified 06/13/21 23:40 Pain ibuprofen AdvReac Abdominal Verified 06/13/21 23:40 Pain Review of Systems ROS Statement: Those systems with pertinent positive or pertinent negative responses have been documented in the HPI. ROS Other: All systems not noted in ROS Statement are negative. 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, Multiple Sclerosis dx November 2018, pt states left leg weak and uses walker ., Bladder retention, frequent flares with panniculitis (worse since weight loss); pt states last 2 weeks since 10/09/20 chest pain and SOB have been increasing History of Any Multi-Drug Resistant Organisms: MRSA Date of last positivie culture/infection: 11/08/17 MDRO Source:: LT INNER THIGH Past Surgical History: Bariatric Surgery, Cholecystectomy, Ear Surgery Additional Past Surgical History / Comment(s): tubes in ears, EGD, laparoscopic kimberly-en-y 02-08-2018 , EGD with dilation Past Anesthesia/Blood Transfusion Reactions: No Reported Reaction Past Psychological History: Anxiety, Depression, PTSD Smoking Status: Never smoker Past Alcohol Use History: None Reported Past Drug Use History: None Reported - Past Family History Mother Family Medical History: Diabetes Mellitus General Exam - General Exam Comments Initial Comments: Patient in no significant distress, does not appear to be ill or toxic. Limitations: no limitations General appearance: obese Head exam: Present: atraumatic, normocephalic, normal inspection Eye exam: Present: normal appearance, PERRL, EOMI. Absent: scleral icterus, conjunctival injection, periorbital swelling ENT exam: Present: normal exam, mucous membranes moist Neck exam: Present: normal inspection. Absent: tenderness, meningismus, lymphadenopathy Respiratory exam: Present: normal lung sounds bilaterally. Absent: respiratory distress, wheezes, rales, rhonchi, stridor Cardiovascular Exam: Present: regular rate, normal rhythm, normal heart sounds. Absent: systolic murmur, diastolic murmur, rubs, gallop, clicks GI/Abdominal exam: Present: soft, normal bowel sounds. Absent: distended, tenderness, guarding, rebound, rigid Extremities exam: Present: normal inspection, full ROM, normal capillary refill. Absent: tenderness, pedal edema, joint swelling, calf tenderness Back exam: Present: normal inspection Neurological exam: Present: alert, oriented X3, CN II-XII intact Psychiatric exam: Present: normal affect, normal mood Skin exam: Present: warm, dry, intact, normal color. Absent: rash Course Vital Signs 06/13/21 23:40 Temperature 99.1 F Pulse Rate 77 Respiratory 20 Rate Blood Pressure 148/96 O2 Sat by Pulse 99 Oximetry - Reevaluation(s) Reevaluation #1: 06/14/21 01:33 Medical record is reviewed Symptoms are improved here in the emergency department Patient is informed of results and questions answered Patient in no distress Patient is able to hold down fluids here in the ER. Patient was given diphenhydramine and metoclopramide Well provided the patient with a prescription for metoclopramide. Medical Decision Making - Medical Decision Making Patient presented again for recurrent abdominal pain, nausea, vomiting. The case was discussed in detail with ED attending physician. Presentation, findings, treatment plan discussed in detail. Patient has a significant workup yesterday with admission to the hospital and evaluation by her surgeon to include an EGD. Patient has Zofran at home which she states is not controlling her nausea. Patient symptomology consistent with what she has had before. Patient is hemodynamically stable. Patient did well with metoclopramide and diphenhydramine. Able to hold down fluids without difficulty. Follow-up with your regular physician as directed. Return to the ER immediately if any symptoms worsen, new symptoms arise, or any other problems develop. Disposition Clinical Impression: Recurrent abdominal pain, Nausea & vomiting Disposition: HOME SELF-CARE Condition: Good Instructions (If sedation given, give patient instructions): Abdominal Pain (ED) Additional Instructions: POON to a clear liquid diet for the next 12 hours. Advance her diet thereafter as tolerated. Try the metoclopramide for additional nausea control. He can take your home medications as directed by your regular physician. Call your surgeon tomorrow morning to schedule follow-up appointment. Patient was told to return to the ER for any signs or symptoms worsen. Told to return immediately if any other problems arise. All questions answered. T reatment plan discussed. Patient in agreement Prescriptions: Metoclopramide [Reglan] 10 mg PO Q6HR PRN #12 tab PRN Reason: Nausea Is patient prescribed a controlled substance at d/c from ED?: No Referrals: Parminder Torres DO [Primary Care Provider] - 1-2 days Evie Garg MD [STAFF PHYSICIAN] - 1-2 days Time of Disposition: 01:35
[2021-06-14] MEDS: METOCLOPRAMIDE 5 MG/ML 2 ML VIAL IM STA (00:16)
[2021-06-14] MEDS: diphenhydrAMINE 50 MG/ML 1 ML VIAL IM STA (00:17)
[2021-06-14 01:49] VITALS: BP 109/69; PULSE 67; RESP 16
== END 2021-06-14 01:45 | disposition home or self-care (01) ==
LOC: EC 23:39
DX: R10.9 Unspecified abdominal pain (principal); R11.2 Nausea with vomiting, unspecified; J45.909 Unspecified asthma, uncomplicated; Z88.5 Allergy status to narcotic agent; Z91.011 Allergy to milk products; Z91.010 Allergy to peanuts; Z90.49 Acquired absence of other specified parts of digestive tract; Z88.8 Allergy status to other drugs, medicaments and biological substances; Z91.018 Allergy to other foods; Z88.6 Allergy status to analgesic agent; Z79.899 Other long term (current) drug therapy; Z79.82 Long term (current) use of aspirin
CPT/HCPCS: 99284; 96372; J1200; J2765

== ENCOUNTER 2021-06-26 11:41 | Emergency (ER) | payer OTHER ==
[2021-06-26 11:47] VITALS: RESP 18
[2021-06-26] MEDS ORDERED: SODIUM CHLORIDE 0.9% 1,000 ML IV STA (12:46)
[2021-06-26] MEDS ORDERED: ONDANSETRON 4 MG/2 ML VIAL IVP STA (12:46)
[2021-06-26] MEDS ORDERED: MORPHINE SULFATE 4 MG/ML SYRINGE IV STA (12:46)
[2021-06-26] MEDS ORDERED: PANTOPRAZOLE 40 MG/10 ML VIAL IVP STA (12:46)
[2021-06-26 13:57] LABS: Basophils % (A) 0 %; Eosinophils # (A) 0.1 k/uL (0-0.7); Eosinophils % (A) 1 %; HCT 42.2 % (34.0-46.0); HGB 14.5 gm/dL (11.4-16.0); Lymphocytes # (A) 1.2 k/uL (1.0-4.8); Lymphocytes % (A) 12 %; MCHC 34.3 g/dL (31.0-37.0); MCV 96.3 fL (80.0-100.0); Monocytes # (A) 0.5 k/uL (0-1.0); Monocytes % (A) 5 %; Neutrophils # (A) 8.3 k/uL (1.3-7.7); Neutrophils % (A) 82 %; Platelet Count 280 k/uL (150-450); RBC 4.38 m/uL (3.80-5.40); RDW 12.6 % (11.5-15.5); WBC 10.1 k/uL (3.8-10.6)
[2021-06-26 14:07] LABS: ALT 15 U/L (4-34); AST 20 U/L (14-36); African American GFR (CKD) >90 (>60 ml/min/1.73 sqM); Albumin 4.6 g/dL (3.5-5.0); Alkaline Phosphatase 87 U/L (38-126); Anion Gap 14 mmol/L; Blood Urea Nitrogen 12 mg/dL (7-17); Calcium 10.1 mg/dL (8.4-10.2); Carbon Dioxide 18 mmol/L (22-30); Chloride 108 mmol/L (98-107); Glucose 107 mg/dL (74-99); Lipase 105 U/L (23-300); Non-African American GFR(CKD) >90 (>60 ml/min/1.73 sqM); Potassium 4.1 mmol/L (3.5-5.1); Sodium 140 mmol/L (137-145); Total Bilirubin 0.6 mg/dL (0.2-1.3)
[2021-06-26 14:10] VITALS: TEMP 98.9
[2021-06-26 14:11] LABS: Appearance,Urine Clear (Clear); Bilirubin,Urine Negative (Negative); Blood,Urine Negative (Negative); Color,Urine Yellow; Glucose,Urine (UA) Negative (Negative); Hyaline Casts,Urine 5 /lpf (0-2); Ketones,Urine Negative (Negative); Leukocyte Esterase,Urine Small (Negative); Mucus,Urine Rare /hpf; Nitrite,Urine Negative (Negative); Protein,Urine Trace (Negative); RBC,Urine 1 /hpf (0-5); Specific Gravity,Urine 1.026 (1.001-1.035); Squamous Epithelial Cell,Urine 6 /hpf (0-4); Urobilinogen,Urine <2.0 mg/dL (<2.0); WBC,Urine 3 /hpf (0-5)
--- NOTE | 2021-06-26 15:08 | ED ---
Abdominal Pain HPI - General Chief Complaint: Abdominal Pain Stated Complaint: Abdominal Pain Source: patient Mode of arrival: ambulatory Limitations: no limitations - History of Present Illness Initial Comments: 26-year-old female with past medical history of morbid obesity status post Cecil-en-Y, chronic narcotic use, peptic ulcer disease presents emergency Department with reported epigastric pain. The patient has been seen in the emergency room several times for similar complaint. She was recently hospitalized and had an EGD by Dr. Zuleta. Patient presents today stating that she has epigastric pain. States it different than her last hospitalization at it appears to be more on the right side. She admits to nausea, low-grade fever, body aches. No sick contacts with similar symptoms. Denies any changes in her urination. Does admit to some diarrhea. No black or bloody stools. Patient has recently been taken off of her blood thinner. She admits that the p ain is so intense that it started out giving her migraine. She was supposed to follow up with Dr. Zuleta in office however reports that she missed her appointment. She denies concern for . No other alleviating, precipitating or modifying factors - Related Data Home Medications Medication Instructions Recorded Confirmed Zonisamide 100 mg PO BID@1200,2100 04/06/15 06/26/21 Butalb/APAP/Caff 50-325-40Mg 1 tab PO TID PRN 10/05/18 06/26/21 [Fioricet 50-325-40] Galcanezumab-Gnlm [Emgality Pen] 120 mg SQ Q30D 03/21/19 06/26/21 ondansetron HCL [Zofran] 8 mg PO TID PRN 03/21/19 06/26/21 Desvenlafaxine [Pristiq ER] 100 mg PO DAILY 07/04/20 06/26/21 HYDROcodone/APAP 10-325MG [[place] 1 tab PO TID 07/04/20 06/26/21 10-325] Montelukast Sodium [Singulair] 10 mg PO HS 07/04/20 06/26/21 Levothyroxine Sodium [Synthroid] 50 mcg PO DAILY 08/04/20 06/26/21 Eletriptan HBr [Relpax] 40 mg PO Q24H PRN 10/15/20 06/26/21 Ocrevus 1 dose IV Q180D 10/15/20 06/26/21 Albuterol Sulfate [Proventil Hfa] 2 puff INHALATION RT-QID PRN 10/25/20 06/26/21 Baclofen [Lioresal] 20 mg PO TID 10/25/20 06/26/21 Oxybutynin Chloride [Oxybutynin 10 mg PO HS 10/25/20 06/26/21 Chloride ER] Gabapentin 600 mg PO QID 01/15/21 06/26/21 busPIRone HCL 15 mg PO QID 01/15/21 06/26/21 Aspirin EC [Ecotrin Low Dose] 81 mg PO HS 04/28/21 06/26/21 Meclizine [Antivert] 25 mg PO TID PRN 04/28/21 06/26/21 Omeprazole 40 mg PO HS 04/28/21 06/26/21 Ondansetron Odt [Zofran ODT] 8 mg PO DAILY 04/28/21 06/26/21 Rimegepant Sulfate [Nurtec Odt] 75 mg PO DAILY PRN 04/28/21 06/26/21 Sucralfate [Carafate] 1 gm PO BID PRN 04/28/21 06/26/21 Desvenlafaxine Succinate [Pristiq 25 mg PO DAILY 06/26/21 06/26/21 ER] Ergocalciferol [Vitamin D2 (1250 1,250 mcg PO MO 06/26/21 06/26/21 Mcg = 16170 Iu)] Multivit with Calcium,Iron,Min 1 tab PO DAILY 06/26/21 06/26/21 [Women's Multivitamin] Phentermine HCl [Adipex-P] 37.5 mg PO DAILY 06/26/21 06/26/21 Previous Rx's Medication Instructions Recorded Amoxic-Pot Clav 875-125Mg 1 tab PO Q12HR #20 tablet 07/13/21 [Augmentin 875-125] Allergies Allergy/AdvReac Type Severity Reaction Status Date / Time codeine Allergy Swelling Verified 07/13/21 00:53 lactose Allergy Unknown Verified 07/13/21 00:53 peanut Allergy Anaphylaxis Verified 07/13/21 00:53 aspartame AdvReac Diarrhea Verified 07/13/21 00:53 fingolimod [From [employer]] AdvReac Abdominal Verified 07/13/21 00:53 Pain ibuprofen AdvReac Abdominal Verified 07/13/21 00:53 Pain Review of Systems ROS Statement: Those systems with pertinent positive or pertinent negative responses have been documented in the HPI. ROS Other: All systems not noted in ROS Statement are negative. 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, Multiple Sclerosis dx November 2018, pt states left leg weak and uses walker ., Bladder retention, frequent flares with panniculitis (worse since weight loss); pt states last 2 weeks since 10/09/20 chest pain and SOB have been increasing History of Any Multi-Drug Resistant Organisms: MRSA Date of last positivie culture/infection: 11/08/17 MDRO Source:: LT INNER THIGH Past Surgical History: Bariatric Surgery, Cholecystectomy, Ear Surgery Additional Past Surgical History / Comment(s): tubes in ears, EGD, laparoscopic cecil-en-y 02-08-2018 , EGD with dilation Past Anesthesia/Blood Transfusion Reactions: No Reported Reaction Past Psychological History: Anxiety, Depression, PTSD Smoking Status: Never smoker Past Alcohol Use History: None Reported Past Drug Use History: None Reported - Past Family History Mother Family Medical History: Diabetes Mellitus General Exam Limitations: no limitations General appearance: alert, in no apparent distress Head exam: Present: atraumatic, normocephalic, normal inspection Eye exam: Present: normal appearance, PERRL, EOMI. Absent: scleral icterus, conjunctival injection, periorbital swelling ENT exam: Present: normal exam, mucous membranes moist Neck exam: Present: normal inspection, tenderness (epigastric). Absent: meningismus, lymphadenopathy Respiratory exam: Present: normal lung sounds bilaterally. Absent: respiratory distress, wheezes, rales, rhonchi, stridor Cardiovascular Exam: Present: regular rate, normal rhythm, normal heart sounds. Absent: systolic murmur, diastolic murmur, rubs, gallop, clicks GI/Abdominal exam: Present: soft, normal bowel sounds. Absent: distended, tend erness, guarding, rebound, rigid Extremities exam: Present: normal inspection, full ROM, normal capillary refill. Absent: tenderness, pedal edema, joint swelling, calf tenderness Back exam: Present: normal inspection Neurological exam: Present: alert, oriented X3, CN II-XII intact Psychiatric exam: Present: normal affect, normal mood Skin exam: Present: warm, dry, intact, normal color. Absent: rash Course Vital Signs 06/26/21 06/26/21 06/26/21 11:43 13:10 14:06 Temperature 98.7 F 98.9 F Pulse Rate 102 H 78 82 Respiratory 18 18 18 Rate Blood Pressure 111/83 120/74 142/94 O2 Sat by Pulse 99 99 98 Oximetry 06/26/21 15:17 Temperature 98.9 F Pulse Rate 75 Respiratory 18 Rate Blood Pressure 132/79 O2 Sat by Pulse 96 Oximetry Medical Decision Making - Medical Decision Making Upon arrival the patient was placed into room 23. A thorough history and physical exam is performed. IV access is established and the patient is given a dose of pain and nausea medications. Patient also even a liter bolus of normal saline and 40 mg of Protonix. Laboratory studies are conducted. While I am awaiting results I did review the patient's recent hospitalization an EGD results. Review the laboratory studies do not demonstrate any acute abnormal labs. Coag not detected. Patient's abdomen remained soft. I did discuss results with the patient. I further discussed the results with Dr. Zuleta. States that she has further laboratory studies and imaging that she wants to perform however the patient keeps feeling follow up in office. States that she can't do anything for the patient if she doesn't keep her doctors appointments. This information is relayed to the patient. Stressed that she must keep her appointments if she wants further evaluation and treatment. Patient understood and agreed to this. She is discharged home and given Dr. Zuleta's number. Instructed to call and make an appointment. Dr. Garg also stated that the office would attempt to call the patient make an appointment. If she has any new or worsening symptoms return to the emergency room. Patient was discharged in stable condition - Lab Data Result diagrams: 06/26/21 13:45 06/26/21 13:45 Lab Results 06/26/21 06/26/21 06/26/21 Range/Units 13:45 13:45 14:00 WBC 10.1 (3.8-10.6) k/uL RBC 4.38 (3.80-5.40) m/uL Hgb 14.5 (11.4-16.0) gm/dL Hct 42.2 (34.0-46.0) % MCV 96.3 (80.0-100.0) fL MCH 33.0 (25.0-35.0) pg MCHC 34.3 (31.0-37.0) g/dL RDW 12.6 (11.5-15.5) % Plt Count 280 (150-450) k/uL MPV 10.0 Neutrophils % 82 % Lymphocytes % 12 % Monocytes % 5 % Eosinophils % 1 % Basophils % 0 % Neutrophils # 8.3 H (1.3-7.7) k/uL Lymphocytes # 1.2 (1.0-4.8) k/uL Monocytes # 0.5 (0-1.0) k/uL Eosinophils # 0.1 (0-0.7) k/uL Basophils # 0.0 (0-0.2) k/uL Sodium 140 (137-145) mmol/L Potassium 4.1 (3.5-5.1) mmol/L Chloride 108 H (98-107) mmol/L Carbon Dioxide 18 L (22-30) mmol/L Anion Gap 14 mmol/L BUN 12 (7-17) mg/dL Creatinine 0.66 (0.52-1.04) mg/dL Est GFR (CKD-EPI)AfAm >90 (>60 ml/min/1.73 sqM) Est GFR (CKD-EPI)NonAf >90 (>60 ml/min/1.73 sqM) Glucose 107 H (74-99) mg/dL Calcium 10.1 (8.4-10.2) mg/dL Total Bilirubin 0.6 (0.2-1.3) mg/dL AST 20 (14-36) U/L ALT 15 (4-34) U/L Alkaline Phosphatase 87 (38-126) U/L Total Protein 7.0 (6.3-8.2) g/dL Albumin 4.6 (3.5-5.0) g/dL Lipase 105 (23-300) U/L Urine Color Yellow Urine Appearance Clear (Clear) Urine pH 7.0 (5.0-8.0) Ur Specific [place] 1.026 (1.001-1.035) Urine Protein Trace H (Negative) Urine Glucose (UA) Negative (Negative) Urine Ketones Negative (Negative) Urine Blood Negative (Negative) Urine Nitrite Negative (Negative) Urine Bilirubin Negative (Negative) Urine Urobilinogen <2.0 (<2.0) mg/dL Ur Leukocyte Esterase Small H (Negative) Urine RBC 1 (0-5) /hpf Urine WBC 3 (0-5) /hpf Ur Squamous Epith Cells 6 H (0-4) /hpf Hyaline Casts 5 H (0-2) /lpf Urine Mucus Rare H (None) /hpf Urine HCG, Qual (Not Detectd) Coronavirus (PCR) (Not Detectd) 06/26/21 06/26/21 Range/Units 14:00 14:13 WBC (3.8-10.6) k/uL RBC (3.80-5.40) m/uL Hgb (11.4-16.0) gm/dL Hct (34.0-46.0) % MCV (80.0-100.0) fL MCH (25.0-35.0) pg MCHC (31.0-37.0) g/dL RDW (11.5-15.5) % Plt Count (150-450) k/uL MPV Neutrophils % % Lymphocytes % % Monocytes % % Eosinophils % % Basophils % % Neutrophils # (1.3-7.7) k/uL Lymphocytes # (1.0-4.8) k/uL Monocytes # (0-1.0) k/uL Eosinophils # (0-0.7) k/uL Basophils # (0-0.2) k/uL Sodium (137-145) mmol/L Potassium (3.5-5.1) mmol/L Chloride (98-107) mmol/L Carbon Dioxide (22-30) mmol/L Anion Gap mmol/L BUN (7-17) mg/dL Creatinine (0.52-1.04) mg/dL Est GFR (CKD-EPI)AfAm (>60 ml/min/1.73 sqM) Est GFR (CKD-EPI)NonAf (>60 ml/min/1.73 sqM) Glucose (74-99) mg/dL Calcium (8.4-10.2) mg/dL Total Bilirubin (0.2-1.3) mg/dL AST (14-36) U/L ALT (4-34) U/L Alkaline Phosphatase (38-126) U/L Total Protein (6.3-8.2) g/dL Albumin (3.5-5.0) g/dL Lipase (23-300) U/L Urine Color Urine Appearance (Clear) Urine pH (5.0-8.0) Ur Specific [place] (1.001-1.035) Urine Protein (Negative) Urine Glucose (UA) (Negative) Urine Ketones (Negative) Urine Blood (Negative) Urine Nitrite (Negative) Urine Bilirubin (Negative) Urine Urobilinogen (<2.0) mg/dL Ur Leukocyte Esterase (Negative) Urine RBC (0-5) /hpf Urine WBC (0-5) /hpf Ur Squamous Epith Cells (0-4) /hpf Hyaline Casts (0-2) /lpf Urine Mucus (None) /hpf Urine HCG, Qual Not Detected (Not Detectd) Coronavirus (PCR) Not Detected (Not Detectd) - EKG Data EKG Comments: EKG demonstrates sinus rhythm with a rate of 75. GA interval 167. QRS 93. QTC of 41. No acute ST segment elevations. Mild ST depression V2 V3 Disposition Clinical Impression: Gastritis, Nausea & vomiting, Gastric bypass status for obesity, Epigastric abdominal pain Disposition: HOME SELF-CARE Condition: Stable Instructions (If sedation given, give patient instructions): Abdominal Pain (ED) Additional Instructions: Please call Dr. Garg for appointment. You must follow up with her for evaluation and treatment. Return for any new or worsening symptoms Is patient prescribed a controlled substance at d/c from ED?: No Referrals: Parminder Torres DO [Primary Care Provider] - 1-2 days Evie Garg MD [STAFF PHYSICIAN] - 1-2 days Time of Disposition: 15:06
[2021-06-26 15:18] VITALS: BP 132/79; PULSE 75
== END 2021-06-26 15:23 | disposition home or self-care (01) ==
LOC: EC 11:41
DX: K29.70 Gastritis, unspecified, without bleeding (principal); J45.909 Unspecified asthma, uncomplicated; Z20.822 Contact with and (suspected) exposure to COVID-19; Z98.84 Bariatric surgery status; Z88.5 Allergy status to narcotic agent; Z91.02 Food additives allergy status; Z91.011 Allergy to milk products; Z88.8 Allergy status to other drugs, medicaments and biological substances
CPT/HCPCS: 36415; 93005; 80053; 83690; 85025; 81001; 81025; 87635; 99284; 96374; 96375; J2270; J2405; C9113

== ENCOUNTER → 2021-07-12 | Outpatient (CLI) | payer OTHER ==
[2021-07-12 23:26] LABS: Basophils # (A) 0.04 X 10*3/uL (0.00-0.10); Basophils % (A) 0.6 %; Eosinophils # (A) 0.11 X 10*3/uL (0.04-0.35); Eosinophils % (A) 1.6 %; HCT 42.9 % (37.2-46.3); Immature Grans, Automated 0.1 %; Lymphocytes # (A) 1.13 X 10*3/uL (0.90-5.00); Lymphocytes % (A) 16.2 %; MCH 31.3 pg (27.0-32.0); MCHC 32.6 g/dL (32.0-37.0); Mean Platelet Volume 12.2 fL (9.5-12.2); Monocytes # (A) 0.42 X 10*3/uL (0.20-1.00); NRBC Per 100 WBC 0 /100 WBCS (0.0-0.0); Neutrophils # (A) 5.25 X 10*3/uL (1.80-7.70); Neutrophils % (A) 75.5 %; Platelet Count 274 X 10*3/uL (140-440); RBC 4.47 X 10*6/uL (4.10-5.20); RDW 11.8 % (11.5-14.5); WBC 6.96 X 10*3/uL (4.50-10.00)
[2021-07-12 23:49] LABS: ALT 15 U/L (8-44); AST 14 U/L (13-35); African American GFR (CKD) 139.8 (60.0-200.0); Albumin 4.7 g/dL (3.8-4.9); Albumin/Globulin Ratio 3.03 (1.60-3.17); Alkaline Phosphatase 104 U/L (41-126); BUN/Creat Ratio 21.25 Ratio (12.00-20.00); Blood Urea Nitrogen 13.9 mg/dL (9.0-27.0); Calcium 9.6 mg/dL (8.7-10.3); Carbon Dioxide 22.3 mmol/L (20.0-27.5); Chloride 106 mmol/L (96-109); Globulin 1.6 g/dL (1.6-3.3); Glucose 91 mg/dL (70-110); Non-African American GFR(CKD) 120.6 (60.0-200.0); Potassium 4.2 mmol/L (3.5-5.5); Sodium 140 mmol/L (135-145); Total Bilirubin <0.15 mg/dL (0.30-1.20); Total Protein 6.3 g/dL (6.2-8.2)
[2021-07-13 00:02] LABS: Hepatitis A Antibody IgM Nonreactive (Nonreactive); Hepatitis B Core IgM Nonreactive (Nonreactive); Hepatitis C IgG Antibody Nonreactive (Nonreactive)
[2021-07-15 11:39] LABS: HIV-1 RNA Not detected (Not detected); HIV-1 RNA, Quant <40 Copies/mL (<40); LOG HIV Copies/mL <1.60 (<1.60)
== END | disposition home or self-care (01) ==
LOC: LABWHC1 15:47
PROVIDERS: ATTEND Psychiatry & Neurology Neurology
DX: G35 Multiple sclerosis (principal)
CPT/HCPCS: 36415; 80053; 82607; 83036; 84207; 84425; 84439; 84443; 84481; 84591; 85025; 86705; 86709; 86803; 87536

== ENCOUNTER 2021-07-13 00:23 | Emergency (ER) | payer OTHER ==
[2021-07-13 00:53] VITALS: RESP 18; TEMP 98.6
[2021-07-13 01:51] LABS: Basophils % (A) 0 %; Eosinophils # (A) 0.2 k/uL (0-0.7); Eosinophils % (A) 3 %; HCT 43.8 % (34.0-46.0); HGB 14.6 gm/dL (11.4-16.0); Lymphocytes # (A) 2.2 k/uL (1.0-4.8); Lymphocytes % (A) 26 %; MCH 32.1 pg (25.0-35.0); MCHC 33.3 g/dL (31.0-37.0); MCV 96.4 fL (80.0-100.0); Mean Platelet Volume 9.9; Monocytes # (A) 0.4 k/uL (0-1.0); Monocytes % (A) 5 %; Neutrophils # (A) 5.5 k/uL (1.3-7.7); Neutrophils % (A) 65 %; Platelet Count 256 k/uL (150-450); RBC 4.54 m/uL (3.80-5.40); RDW 12.7 % (11.5-15.5); WBC 8.5 k/uL (3.8-10.6)
[2021-07-13 02:02] LABS: ALT 16 U/L (4-34); AST 21 U/L (14-36); African American GFR (CKD) >90 (>60 ml/min/1.73 sqM); Albumin 4.1 g/dL (3.5-5.0); Alkaline Phosphatase 86 U/L (38-126); Anion Gap 9 mmol/L; Blood Urea Nitrogen 13 mg/dL (7-17); Calcium 9.3 mg/dL (8.4-10.2); Carbon Dioxide 20 mmol/L (22-30); Chloride 109 mmol/L (98-107); Glucose 98 mg/dL (74-99); Non-African American GFR(CKD) >90 (>60 ml/min/1.73 sqM); Potassium 3.8 mmol/L (3.5-5.1); Sodium 138 mmol/L (137-145); Total Bilirubin 0.5 mg/dL (0.2-1.3); Total Protein 6.3 g/dL (6.3-8.2)
[2021-07-13 02:12] LABS: INR 0.9 (<1.2); Prothrombin Time 9.6 sec (9.0-12.0)
[2021-07-13 02:14] LABS: Partial Thromboplastin Time 18.2 sec (22.0-30.0)
--- NOTE | 2021-07-13 02:19 | XR ---
EXAMINATION TYPE: XR chest 2V DATE OF EXAM: 07/13/2021 COMPARISON: 06/13/2021 HISTORY: Difficulty breathing TECHNIQUE: 2 views FINDINGS: Heart is normal. Lungs are clear of infiltrate. There is no heart failure. There are no hil ar masses. Bony thorax is intact. IMPRESSION: Normal chest. No change.
[2021-07-13] MEDS ORDERED: IPRATROPIUM-ALBUTEROL 3 ML NEB INHALATION STA (03:45)
[2021-07-13] MEDS ORDERED: methylPREDNISolone SOD SUCCI 125 MG/2 ML VIAL IV STA (03:45)
--- NOTE | 2021-07-13 03:46 | ED ---
Recheck HPI - General Chief Complaint: Shortness of Breath Stated Complaint: SOB Time Seen by Provider: 07/13/21 02:04 Source: patient, RN notes reviewed, old records reviewed Mode of arrival: wheelchair Limitations: no limitations - History of Present Illness Initial Comments: This is a 1-year-old female who is not feeling well has no voice cough conge stion shortness of breath and wheezing.patient does suffer from asthma and history of PE. She has also suffered from MS. Patient states symptoms of been episodic for a couple weeks symptoms are worsening currently. MD Complaint: other (cough congestion) -: week(s) Returns Today for: Called Because of Abnormal Lab/Test, persistent/worsening pain related to initial visit Symptoms Since Prior Visit: worsening pain Context: planned re-check Associated Symptoms: shortness of breath, nausea Treatments Prior to Arrival: other (none) - Related Data Home Medications Medication Instructions Recorded Confirmed Zonisamide 100 mg PO BID@1200,2100 04/06/15 06/26/21 Butalb/APAP/Caff 50-325-40Mg 1 tab PO TID PRN 10/05/18 06/26/21 [Fioricet 50-325-40] Galcanezumab-Gnlm [Emgality Pen] 120 mg SQ Q30D 03/21/19 06/26/21 ondansetron HCL [Zofran] 8 mg PO TID PRN 03/21/19 06/26/21 Desvenlafaxine [Pristiq ER] 100 mg PO DAILY 07/04/20 06/26/21 HYDROcodone/APAP 10-325MG [[place] 1 tab PO TID 07/04/20 06/26/21 10-325] Montelukast Sodium [Singulair] 10 mg PO HS 07/04/20 06/26/21 Levothyroxine Sodium [Synthroid] 50 mcg PO DAILY 08/04/20 06/26/21 Eletriptan HBr [Relpax] 40 mg PO Q24H PRN 10/15/20 06/26/21 Ocrevus 1 dose IV Q180D 10/15/20 06/26/21 Albuterol Sulfate [Proventil Hfa] 2 puff INHALATION RT-QID PRN 10/25/20 06/26/21 Baclofen [Lioresal] 20 mg PO TID 10/25/20 06/26/21 Oxybutynin Chloride [Oxybutynin 10 mg PO HS 10/25/20 06/26/21 Chloride ER] Gabapentin 600 mg PO QID 01/15/21 06/26/21 busPIRone HCL 15 mg PO QID 01/15/21 06/26/21 Aspirin EC [Ecotrin Low Dose] 81 mg PO HS 04/28/21 06/26/21 Meclizine [Antivert] 25 mg PO TID PRN 04/28/21 06/26/21 Omeprazole 40 mg PO HS 04/28/21 06/26/21 Ondansetron Odt [Zofran ODT] 8 mg PO DAILY 04/28/21 06/26/21 Rimegepant Sulfate [Nurtec Odt] 75 mg PO DAILY PRN 04/28/21 06/26/21 Sucralfate [Carafate] 1 gm PO BID PRN 04/28/21 06/26/21 Desvenlafaxine Succinate [Pristiq 25 mg PO DAILY 06/26/21 06/26/21 ER] Ergocalciferol [Vitamin D2 (1250 1,250 mcg PO MO 06/26/21 06/26/21 Mcg = 74003 Iu)] Multivit with Calcium,Iron,Min 1 tab PO DAILY 06/26/21 06/26/21 [Women's Multivitamin] Phentermine HCl [Adipex-P] 37.5 mg PO DAILY 06/26/21 06/26/21 Allergies Allergy/AdvReac Type Severity Reaction Status Date / Time codeine Allergy Swelling Verified 07/13/21 00:53 lactose Allergy Unknown Verified 07/13/21 00:53 peanut Allergy Anaphylaxis Verified 07/13/21 00:53 aspartame AdvReac Diarrhea Verified 07/13/21 00:53 fingolimod [From [employer]] AdvReac Abdominal Verified 07/13/21 00:53 Pain ibuprofen AdvReac Abdominal Verified 07/13/21 00:53 Pain Review of Systems ROS Statement: Those systems with pertinent positive or pertinent negative responses have been documented in the HPI. ROS Other: All systems not noted in ROS Statement are negative. 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, Multiple Sclerosis dx November 2018, pt states left leg weak and uses walker ., Bladder retention, frequent flares with panniculitis (worse since weight loss); pt states last 2 weeks since 10/09/20 chest pain and SOB have been increasing, pna History of Any Multi-Drug Resistant Organisms: MRSA Date of last positivie culture/infection: 11/08/17 MDRO Source:: LT INNER THIGH Past Surgical History: Bariatric Surgery, Cholecystectomy, Ear Surgery Additional Past Surgical History / Comment(s): tubes in ears, EGD, laparoscopic kimberly-en-y 02-08-2018 , EGD with dilation Past Anesthesia/Blood Transfusion Reactions: No Reported Reaction Past Psychological History: Anxiety, Depression, PTSD Smoking Status: Never smoker Past Alcohol Use History: None Reported Past Drug Use History: None Reported - Past Family History Mother Family Medical History: Diabetes Mellitus General Exam General appearance: alert, in no apparent distress, anxious Head exam: Present: atraumatic, normocephalic, normal inspection Eye exam: Present: normal appearance, PERRL, EOMI. Absent: scleral icterus, conjunctival injection, periorbital swelling ENT exam: Present: normal exam, mucous membranes moist Neck exam: Present: normal inspection. Absent: tenderness, meningismus, lymphadenopathy Respiratory exam: Present: normal lung sounds bilaterally. Absent: respiratory distress, wheezes, rales, rhonchi, stridor Cardiovascular Exam: Present: regular rate, normal rhythm, normal heart sounds. Absent: systolic murmur, diastolic murmur, rubs, gallop, clicks GI/Abdominal exam: Present: soft, normal bowel sounds. Absent: distended, tenderness, guarding, rebound, rigid Extremities exam: Present: normal inspection, full ROM, normal capillary refill. Absent: tenderness, pedal edema, joint swelling, calf tenderness Back exam: Present: normal inspection Neurological exam: Present: alert, oriented X3, CN II-XII intact Psychiatric exam: Present: normal affect, normal mood Skin exam: Present: warm, dry, intact, normal color. Absent: rash Course Vital Signs 07/13/21 07/13/21 07/13/21 00:47 04:12 04:19 Temperature 98.6 F Pulse Rate 87 72 85 Respiratory 18 Rate Blood Pressure 125/85 O2 Sat by Pulse 100 Oximetry - Reevaluation(s) Reevaluation #1: 07/13/21 04:56 medical record is reviewed Reevaluation #2: 07/13/21 04:56 patient is informed of results and questions are answered Reevaluation #3: 07/13/21 04:56 patient informed of results and questions are answered Medical Decision Making - Medical Decision Making 26 female to the emergency departmentL with persistent shortness of breath pharyngitis type symptoms going on for about a month. Coronavirus testing is negative CTA chest is negative lab values are negative and patient can be discharged home - Lab Data Result diagrams: 07/13/21 01:40 07/13/21 01:40 Lab Results 07/13/21 07/13/21 07/13/21 Range/Units 01:40 01:40 01:40 WBC 8.5 (3.8-10.6) k/uL RBC 4.54 (3.80-5.40) m/uL Hgb 14.6 (11.4-16.0) gm/dL Hct 43.8 (34.0-46.0) % MCV 96.4 (80.0-100.0) fL MCH 32.1 (25.0-35.0) pg MCHC 33.3 (31.0-37.0) g/dL RDW 12.7 (11.5-15.5) % Plt Count 256 (150-450) k/uL MPV 9.9 Neutrophils % 65 % Lymphocytes % 26 % Monocytes % 5 % Eosinophils % 3 % Basophils % 0 % Neutrophils # 5.5 (1.3-7.7) k/uL Lymphocytes # 2.2 (1.0-4.8) k/uL Monocytes # 0.4 (0-1.0) k/uL Eosinophils # 0.2 (0-0.7) k/uL Basophils # 0.0 (0-0.2) k/uL PT 9.6 (9.0-12.0) sec INR 0.9 (<1.2) APTT 18.2 L (22.0-30.0) sec D-Dimer 0.18 (<0.60) mg/L FEU Sodium 138 (137-145) mmol/L Potassium 3.8 (3.5-5.1) mmol/L Chloride 109 H (98-107) mmol/L Carbon Dioxide 20 L (22-30) mmol/L Anion Gap 9 mmol/L BUN 13 (7-17) mg/dL Creatinine 0.71 (0.52-1.04) mg/dL Est GFR (CKD-EPI)AfAm >90 (>60 ml/min/1.73 sqM) Est GFR (CKD-EPI)NonAf >90 (>60 ml/min/1.73 sqM) Glucose 98 (74-99) mg/dL Calcium 9.3 (8.4-10.2) mg/dL Total Bilirubin 0.5 (0.2-1.3) mg/dL AST 21 (14-36) U/L ALT 16 (4-34) U/L Alkaline Phosphatase 86 (38-126) U/L Troponin I (0.000-0.034) ng/mL Total Protein 6.3 (6.3-8.2) g/dL Albumin 4.1 (3.5-5.0) g/dL Coronavirus (PCR) (Not Detectd) 07/13/21 07/13/21 Range/Units 01:40 02:58 WBC (3.8-10.6) k/uL RBC (3.80-5.40) m/uL Hgb (11.4-16.0) gm/dL Hct (34.0-46.0) % MCV (80.0-100.0) fL MCH (25.0-35.0) pg MCHC (31.0-37.0) g/dL RDW (11.5-15.5) % Plt Count (150-450) k/uL MPV Neutrophils % % Lymphocytes % % Monocytes % % Eosinophils % % Basophils % % Neutrophils # (1.3-7.7) k/uL Lymphocytes # (1.0-4.8) k/uL Monocytes # (0-1.0) k/uL Eosinophils # (0-0.7) k/uL Basophils # (0-0.2) k/uL PT (9.0-12.0) sec INR (<1.2) APTT (22.0-30.0) sec D-Dimer (<0.60) mg/L FEU Sodium (137-145) mmol/L Potassium (3.5-5.1) mmol/L Chloride (98-107) mmol/L Carbon Dioxide (22-30) mmol/L Anion Gap mmol/L BUN (7-17) mg/dL Creatinine (0.52-1.04) mg/dL Est GFR (CKD-EPI)AfAm (>60 ml/min/1.73 sqM) Est GFR (CKD-EPI)NonAf (>60 ml/min/1.73 sqM) Glucose (74-99) mg/dL Calcium (8.4-10.2) mg/dL Total Bilirubin (0.2-1.3) mg/dL AST (14-36) U/L ALT (4-34) U/L Alkaline Phosphatase (38-126) U/L Troponin I <0.012 (0.000-0.034) ng/mL Total Protein (6.3-8.2) g/dL Albumin (3.5-5.0) g/dL Coronavirus (PCR) Not Detected (Not Detectd) - Radiology Data Radiology results: report reviewed (chest x-ray and CT chest negative for acute disease), image reviewed Disposition Clinical Impression: Acute laryngitis Disposition: HOME SELF-CARE Instructions (If sedation given, give patient instructions): Acute Bronchitis (ED) Is patient prescribed a controlled substance at d/c from ED?: No Referrals: Parminder Torres DO [Primary Care Provider] - 1-2 days
--- NOTE | 2021-07-13 04:25 | CT ---
EXAMINATION TYPE: CT chest angio for PE DATE OF EXAM: 07/13/2021 COMPARISON: 04/28/2021 HISTORY: chest pain, cough, sob. h/o DVTs &PEs CT DLP: 1037.7 mGycm Automated exposure control for dose reduction was used. CONTRAST: Performed with IV Contrast, patient injected with 80 mL of Isovue 370. There are 3-D post processed images. The lungs are clear of infiltrate. There is no pleural effusion or pneumothorax. Heart size is normal . There is no pericardial effusion. There is no mediastinal adenopathy. There are no hilar masses. Thoracic aorta is intact. There is no aneurysm or dissection. There is normal contrast opacification of the pulmonary arteries. There are no filling defects. Thoracic spine is intact. There is no compression fracture. IMPRESSION: Negative exam. No evidence of pulmonary embolism. No adverse change.
[2021-07-13] MEDS ORDERED: AMOXIC-POT CLAV 875MG STARTER PACK 2 TAB BTL PO STA (04:58)
[2021-07-13] MEDS ORDERED: AMOXIC-POT CLAV 875-125MG 1 EACH TAB PO STA (04:58)
[2021-07-13 05:29] VITALS: BP 140/84; PULSE 84
== END 2021-07-13 05:28 | disposition home or self-care (01) ==
LOC: EC 00:23
DX: J04.0 Acute laryngitis (principal); J45.909 Unspecified asthma, uncomplicated; Z88.8 Allergy status to other drugs, medicaments and biological substances; Z88.6 Allergy status to analgesic agent; Z88.5 Allergy status to narcotic agent; Z20.822 Contact with and (suspected) exposure to COVID-19; Z91.011 Allergy to milk products; Z91.010 Allergy to peanuts
CPT/HCPCS: 94640; 93005; 85379; 80053; 84484; 85025; 85610; 85730; 87635; 71046; 71275; 99285; 96374; J2930; Q9967; 36415

== ENCOUNTER 2021-08-21 17:21 | Observation (INO) | payer OTHER ==
[2021-08-21] MEDS ORDERED: IOPAMIDOL CONTRAST (ORAL USE) VIAL PO PRN (17:30)
--- NOTE | 2021-08-21 17:30 | ED ---
Abdominal Pain HPI - General Stated Complaint: Abdominal Pain, Bariatric center told to come Time Seen by Provider: 08/21/21 17:30 - History of Present Illness Initial Comments: Britt is a 26yo F with history of bariatric surgery and subsequent bowel ob structions. She was seen by her surgeon today who recommended she come to the emergency department for imaging, recommended admission to the hospital for plan for surgery for lysis of adhesions tomorrow. - Related Data Home Medications Medication Instructions Recorded Confirmed Zonisamide 100 mg PO BID@1200,2100 04/06/15 08/21/21 Butalb/APAP/Caff 50-325-40Mg 1 tab PO TID PRN 10/05/18 08/21/21 [Fioricet 50-325-40] Galcanezumab-Gnlm [Emgality Pen] 120 mg SQ Q30D 03/21/19 08/21/21 ondansetron HCL [Zofran] 8 mg PO TID PRN 03/21/19 08/21/21 Desvenlafaxine [Pristiq ER] 100 mg PO DAILY 07/04/20 08/21/21 HYDROcodone/APAP 10-325MG [[place] 1 tab PO TID 07/04/20 08/21/21 10-325] Montelukast Sodium [Singulair] 10 mg PO HS 07/04/20 08/21/21 Levothyroxine Sodium [Synthroid] 50 mcg PO DAILY 08/04/20 08/21/21 Eletriptan HBr [Relpax] 40 mg PO Q24H PRN 10/15/20 08/21/21 Ocrevus 1 dose IV Q180D 10/15/20 08/21/21 Albuterol Sulfate [Proventil Hfa] 2 puff INHALATION RT-QID PRN 10/25/20 08/21/21 Baclofen [Lioresal] 20 mg PO TID 10/25/20 08/21/21 Oxybutynin Chloride [Oxybutynin 10 mg PO HS 10/25/20 08/21/21 Chloride ER] Gabapentin 600 mg PO QID 01/15/21 08/21/21 Aspirin EC [Ecotrin Low Dose] 81 mg PO HS 04/28/21 08/21/21 Meclizine [Antivert] 25 mg PO TID PRN 04/28/21 08/21/21 Omeprazole 40 mg PO HS 04/28/21 08/21/21 Ondansetron Odt [Zofran ODT] 8 mg PO DAILY 04/28/21 08/21/21 Rimegepant Sulfate [Nurtec Odt] 75 mg PO DAILY PRN 04/28/21 08/21/21 Sucralfate [Carafate] 1 gm PO BID PRN 04/28/21 08/21/21 Desvenlafaxine Succinate [Pristiq 25 mg PO DAILY 06/26/21 08/21/21 ER] Ergocalciferol [Vitamin D2 (1250 1,250 mcg PO [place] 06/26/21 08/21/21 Mcg = 45312 Iu)] Multivit with Calcium,Iron,Min 1 tab PO DAILY 06/26/21 08/21/21 [Women's Multivitamin] Sodium Chloride [[place]] 1 spr EA NOSTRIL BID 08/21/21 08/21/21 busPIRone HCL 15 mg PO QID 08/21/21 08/21/21 hydrOXYzine pamoate [Vistaril] 50 mg PO TID 08/21/21 08/21/21 Allergies Allergy/AdvReac Type Severity Reaction Status Date / Time codeine Allergy Anaphylaxis Verified 08/21/21 20:14 peanut Allergy Anaphylaxis Verified 08/21/21 20:14 aspartame AdvReac Diarrhea Verified 08/21/21 20:14 fingolimod [From [employer]] AdvReac Abdominal Verified 08/21/21 20:14 Pain ibuprofen AdvReac Abdominal Verified 08/21/21 20:14 Pain lactose AdvReac Nausea & Verified 08/21/21 20:14 Vomiting & Diarrhea Review of Systems ROS Statement: Those systems with pertinent positive or pertinent negative responses have been documented in the HPI. ROS Other: All systems not noted in ROS Statement are negative. 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, Multiple Sclerosis dx November 2018, pt states left leg weak and uses walker ., Bladder retention, frequent flares with panniculitis (worse since weight loss); pt states last 2 weeks since 10/09/20 chest pain and SOB have been increasing, pna History of Any Multi-Drug Resistant Organisms: MRSA Date of last positivie culture/infection: 11/08/17 MDRO Source:: LT INNER THIGH Past Surgical History: Bariatric Surgery, Cholecystectomy, Ear Surgery Additional Past Surgical History / Comment(s): tubes in ears, EGD, laparoscopic kimberly-en-y 02-08-2018 , EGD with dilation Past Anesthesia/Blood Transfusion Reactions: No Reported Reaction Past Psychological History: Anxiety, Depression, PTSD Additional Psychological History / Comment(s): 04/29/21: Uses walker for ambulation as needed, dx with Multiple Sclerosis Smoking Status: Never smoker Past Alcohol Use History: None Reported Past Drug Use History: None Reported - Past Family History Mother Family Medical History: Diabetes Mellitus General Exam - General Exam Comments Initial Comments: Physical Exam GENERAL: Patient is well-developed and well-nourished. Patient is nontoxic and well-hydrated and is in no distress. HENT: Normocephalic, Atraumatic. EYES: PERRL, EOMI PULMONARY: Unlabored respirations. CARDIOVASCULAR: RRR Warm and well perfused extremities ABDOMEN: Mild tenderness SKIN: No rashes or bruising : Deferred NEUROLOGIC: Alert and oriented Normal speech Normal gait MUSCULOSKELETAL: Moving all extremities with no apparent injury PSYCHIATRIC: No SI/HI Course Vital Signs 08/21/21 08/21/21 18:15 19:52 Temperature 98.2 F Pulse Rate 89 103 H Respiratory 18 20 Rate Blood Pressure 141/88 135/86 O2 Sat by Pulse 95 94 L Oximetry Medical Decision Making - Medical Decision Making Patient care was discussed with surgeon who was transferring patient to the emergency department. Orders were placed as soon as the patient arrived. Labs are drawn patient was taken for x-ray and CT. Upon reevaluation patient appears quite comfortable she's eating a sandwich and chips. She still reports abdomin al pain and discomfort. Surgeon agrees with plan for admission for plan for lysis of adhesions, recommends nothing by mouth at midnight diet. Patient's home medications were ordered and patient was admitted. - Lab Data Result diagrams: 08/21/21 18:07 08/21/21 18:07 Lab Results 08/21/21 08/21/21 08/21/21 Range/Units 18:07 18:07 18:07 WBC 13.1 H (3.8-10.6) k/uL RBC 4.50 (3.80-5.40) m/uL Hgb 13.9 (11.4-16.0) gm/dL Hct 43.0 (34.0-46.0) % MCV 95.6 (80.0-100.0) fL MCH 30.9 (25.0-35.0) pg MCHC 32.4 (31.0-37.0) g/dL RDW 12.5 (11.5-15.5) % Plt Count 295 (150-450) k/uL MPV 9.6 Neutrophils % 82 % Lymphocytes % 11 % Monocytes % 4 % Eosinophils % 2 % Basophils % 0 % Neutrophils # 10.8 H (1.3-7.7) k/uL Lymphocytes # 1.4 (1.0-4.8) k/uL Monocytes # 0.6 (0-1.0) k/uL Eosinophils # 0.2 (0-0.7) k/uL Basophils # 0.1 (0-0.2) k/uL Sodium (137-145) mmol/L Potassium (3.5-5.1) mmol/L Chloride (98-107) mmol/L Carbon Dioxide (22-30) mmol/L Anion Gap mmol/L BUN (7-17) mg/dL Creatinine (0.52-1.04) mg/dL Est GFR (CKD-EPI)AfAm (>60 ml/min/1.73 sqM) Est GFR (CKD-EPI)NonAf (>60 ml/min/1.73 sqM) Glucose (74-99) mg/dL Plasma Lactic Acid [place] (0.7-2.0) mmol/L Calcium (8.4-10.2) mg/dL Total Bilirubin (0.2-1.3) mg/dL AST (14-36) U/L ALT (4-34) U/L Alkaline Phosphatase (38-126) U/L Total Protein (6.3-8.2) g/dL Albumin (3.5-5.0) g/dL Lipase (23-300) U/L Urine Color Yellow Urine Appearance Cloudy H (Clear) Urine pH 6.0 (5.0-8.0) Ur Specific [place] 1.044 H (1.001-1.035) Urine Protein 1+ H (Negative) Urine Glucose (UA) Negative (Negative) Urine Ketones Trace H (Negative) Urine Blood Negative (Negative) Urine Nitrite Negative (Negative) Urine Bilirubin Negative (Negative) Urine Urobilinogen 2.0 (<2.0) mg/dL Ur Leukocyte Esterase Small H (Negative) Urine RBC 1 (0-5) /hpf Urine WBC 3 (0-5) /hpf Ur Squamous Epith Cells 15 H (0-4) /hpf Calcium Oxalate Crystal Occasional H (None) /hpf Amorphous Sediment Rare H (None) /hpf Urine Bacteria Rare H (None) /hpf Hyaline Casts 3 H (0-2) /lpf Urine Mucus Occasional H (None) /hpf Urine HCG, Qual Not Detected (Not Detectd) 08/21/21 08/21/21 Range/Units 18:07 18:07 WBC (3.8-10.6) k/uL RBC (3.80-5.40) m/uL Hgb (11.4-16.0) gm/dL Hct (34.0-46.0) % MCV (80.0-100.0) fL MCH (25.0-35.0) pg MCHC (31.0-37.0) g/dL RDW (11.5-15.5) % Plt Count (150-450) k/uL MPV Neutrophils % % Lymphocytes % % Monocytes % % Eosinophils % % Basophils % % Neutrophils # (1.3-7.7) k/uL Lymphocytes # (1.0-4.8) k/uL Monocytes # (0-1.0) k/uL Eosinophils # (0-0.7) k/uL Basophils # (0-0.2) k/uL Sodium 138 (137-145) mmol/L Potassium 4.1 (3.5-5.1) mmol/L Chloride 109 H (98-107) mmol/L Carbon Dioxide 19 L (22-30) mmol/L Anion Gap 10 mmol/L BUN 10 (7-17) mg/dL Creatinine 0.72 (0.52-1.04) mg/dL Est GFR (CKD-EPI)AfAm >90 (>60 ml/min/1.73 sqM) Est GFR (CKD-EPI)NonAf >90 (>60 ml/min/1.73 sqM) Glucose 106 H (74-99) mg/dL Plasma Lactic Acid [place] 1.7 (0.7-2.0) mmol/L Calcium 9.7 (8.4-10.2) mg/dL Total Bilirubin 0.4 (0.2-1.3) mg/dL AST 21 (14-36) U/L ALT 21 (4-34) U/L Alkaline Phosphatase 93 (38-126) U/L Total Protein 6.8 (6.3-8.2) g/dL Albumin 4.5 (3.5-5.0) g/dL Lipase 130 (23-300) U/L Urine Color Urine Appearance (Clear) Urine pH (5.0-8.0) Ur Specific [place] (1.001-1.035) Urine Protein (Negative) Urine Glucose (UA) (Negative) Urine Ketones (Negative) Urine Blood (Negative) Urine Nitrite (Negative) Urine Bilirubin (Negative) Urine Urobilinogen (<2.0) mg/dL Ur Leukocyte Esterase (Negative) Urine RBC (0-5) /hpf Urine WBC (0-5) /hpf Ur Squamous Epith Cells (0-4) /hpf Calcium Oxalate Crystal (None) /hpf Amorphous Sediment (None) /hpf Urine Bacteria (None) /hpf Hyaline Casts (0-2) /lpf Urine Mucus (None) /hpf Urine HCG, Qual (Not Detectd) Disposition Clinical Impression: Abdominal pain, Morbid obesity, Gastric bypass status for obesity Disposition: ADMITTED IP TO THIS HOSP Condition: Stable
[2021-08-21 18:55] LABS: Basophils # (A) 0.1 k/uL (0-0.2); Basophils % (A) 0 %; Eosinophils # (A) 0.2 k/uL (0-0.7); Eosinophils % (A) 2 %; HGB 13.9 gm/dL (11.4-16.0); Lymphocytes # (A) 1.4 k/uL (1.0-4.8); Lymphocytes % (A) 11 %; MCH 30.9 pg (25.0-35.0); MCHC 32.4 g/dL (31.0-37.0); MCV 95.6 fL (80.0-100.0); Mean Platelet Volume 9.6; Monocytes # (A) 0.6 k/uL (0-1.0); Monocytes % (A) 4 %; Neutrophils # (A) 10.8 k/uL (1.3-7.7); Neutrophils % (A) 82 %; Platelet Count 295 k/uL (150-450); RDW 12.5 % (11.5-15.5); WBC 13.1 k/uL (3.8-10.6)
[2021-08-21 19:01] LABS: Amorphous Sediment,Urine Rare /hpf; Appearance,Urine Cloudy (Clear); Bacteria,Urine Rare /hpf; Bilirubin,Urine Negative (Negative); Blood,Urine Negative (Negative); Calcium Oxalate Crystals,Urine Occasional /hpf; Color,Urine Yellow; Glucose,Urine (UA) Negative (Negative); Hyaline Casts,Urine 3 /lpf (0-2); Ketones,Urine Trace (Negative); Leukocyte Esterase,Urine Small (Negative); Mucus,Urine Occasional /hpf; Nitrite,Urine Negative (Negative); Protein,Urine 1+ (Negative); RBC,Urine 1 /hpf (0-5); Specific Gravity,Urine 1.044 (1.001-1.035); Squamous Epithelial Cell,Urine 15 /hpf (0-4); WBC,Urine 3 /hpf (0-5)
[2021-08-21 19:03] LABS: ALT 21 U/L (4-34); AST 21 U/L (14-36); African American GFR (CKD) >90 (>60 ml/min/1.73 sqM); Albumin 4.5 g/dL (3.5-5.0); Alkaline Phosphatase 93 U/L (38-126); Anion Gap 10 mmol/L; Blood Urea Nitrogen 10 mg/dL (7-17); Calcium 9.7 mg/dL (8.4-10.2); Carbon Dioxide 19 mmol/L (22-30); Chloride 109 mmol/L (98-107); Glucose 106 mg/dL (74-99); Lipase 130 U/L (23-300); Non-African American GFR(CKD) >90 (>60 ml/min/1.73 sqM); Potassium 4.1 mmol/L (3.5-5.1); Sodium 138 mmol/L (137-145); Total Bilirubin 0.4 mg/dL (0.2-1.3); Total Protein 6.8 g/dL (6.3-8.2)
--- NOTE | 2021-08-21 19:03 | XR ---
EXAMINATION TYPE: XR KUB DATE OF EXAM: 08/21/2021 COMPARISON: NONE HISTORY: Flank pain TECHNIQUE: 2 views upright FINDINGS: There is no sign of intestinal obstruction or pneumoperitoneum. Fecal pattern is normal. Th ere are no pathologic calcifications over the kidneys. IMPRESSION: Nonacute abdomen.
[2021-08-21] MEDS ORDERED: NALOXONE 0.4 MG/ML 1 ML VIAL IV PRN (19:24)
--- NOTE | 2021-08-21 21:49 | CT ---
EXAMINATION TYPE: CT abdomen pelvis w con DATE OF EXAM: 08/21/2021 COMPARISON: 06/13/2021 HISTORY: Abd pain, gastris bypass CT DLP: 4010.4 mGycm Automated exposure control for dose reduction was used. CONTRAST: Performed with IV Contrast, patient injected with 100ml mL of Isovue 300. Images obtained from the diaphragm to the floor the pelvis with IV contrast. Lung bases are clear. There is no pleural effusion. Heart size is normal. There is no pericardial eff usion. Liver spleen pancreas appear intact. There are clips from gastric bypass surgery. Gallbladder not seen. The bile ducts are not dilated. There is no adrenal mass. Kidneys show satisfactory contrast opacification. There is no hydronephrosi s. Delayed images show normal renal excretion. There is no retroperitoneal adenopathy. Appendix is la teral and appears normal. Bladder distends smoothly. There is no free fluid in the pelvis. No evidenc e of a pelvic mass. There is no mesenteric edema. No ascites or free air. No sign of a bowel obstruction. Lumbar vertebra e have normal alignment. No compression fracture. This spaces are fairly normal. Bony pelvis is intac t. The hip joints are intact. IMPRESSION: Negative CT scan abdomen and pelvis. No adverse change compared to old exam.
[2021-08-21] MEDS ORDERED: MECLIZINE 25 MG TAB PO PRN (22:05)
[2021-08-21] MEDS ORDERED: SUCRALFATE 1 GM TAB PO PRN (22:05)
[2021-08-21] MEDS ORDERED: HYDROmorphone 0.5 MG/0.5 ML SYRINGE IVP STA (22:20)
[2021-08-21] MEDS: SODIUM CHLORIDE 0.9% 1,000 ML IV SCH (23:00)
[2021-08-21] MEDS: GABAPENTIN 300 MG CAP PO SCH (23:01)
[2021-08-21] MEDS: HYDROcodone/APAP 10-325MG 1 EACH TAB PO SCH (23:01)
[2021-08-21] MEDS: hydrOXYzine pamoate 25 MG CAP PO SCH (23:02)
[2021-08-21] MEDS: busPIRone HCl 5 MG TAB PO SCH (23:03)
[2021-08-21] MEDS: BACLOFEN 10 MG TAB PO SCH (23:03)
[2021-08-21] MEDS: MONTELUKAST 10 MG TAB PO SCH (23:34)
[2021-08-21] MEDS: PANTOPRAZOLE 40 MG TABLET PO SCH (23:34)
[2021-08-22] MEDS: ONDANSETRON 4 MG/2 ML VIAL IVP PRN ×2 (02:43→19:16)
[2021-08-22] MEDS: SODIUM CHLORIDE 0.9% 1,000 ML IV SCH ×2 (02:50→20:00)
[2021-08-22] MEDS: LEVOTHYROXINE 50 MCG TAB PO SCH (06:29)
[2021-08-22] MEDS: HYDROcodone/APAP 10-325MG 1 EACH TAB PO SCH ×3 (08:36→20:58)
[2021-08-22] MEDS: BACLOFEN 10 MG TAB PO SCH ×3 (08:37→20:59)
[2021-08-22] MEDS: GABAPENTIN 300 MG CAP PO SCH ×4 (08:37→23:58)
[2021-08-22] MEDS: busPIRone HCl 5 MG TAB PO SCH ×4 (08:37→23:58)
[2021-08-22] MEDS: hydrOXYzine pamoate 25 MG CAP PO SCH ×3 (08:41→21:49)
[2021-08-22] MEDS: DESVENLAFAXINE SUCCINATE 50 MG TAB.ER.24H PO SCH ×2 (08:42→09:36)
--- NOTE | 2021-08-22 12:19 | P.GSHP ---
History of Present Illness H&P Date: 08/21/21 CHIEF COMPLAINT: Acute on chronic abdominal pain HISTORY OF PRESENT ILLNESS: Britt Albarran is a 26-year-old female status post gastric bypass 02/08/2018. She is over 4 years out. Patient presents for pre- existing history of abdominal adhesions and bowel obstruction. Patient reports having severe abdominal pain left upper quadrant that relates from the left back to left upper abdomen. She is unable to tolerate oral intake. She reports intractable nausea and vomiting. Patient prior was taking blood thinners secondary to blood clots to her lung. She has discontinued her blood thinners. She presented to the emergency room with severe intractable abdominal pain. Patient is admitted due to the severity of her abdominal pain consistent with peritoneal adhesions and intermittent bowel obstruction PAST MEDICAL HISTORY: 1. Morbid obesity due to excess calories 2. Body mass index 61.5, highest. 3. Irritable bowel syndrome. 4. Obstructive sleep apnea. 5. Osteoarthritis of the hips 6. Hypertensive heart disease. 7. Gastroesophageal reflux disease 8. Anxiety. 9. Depression. 10. Migraines. 11. Overactive bladder. 12. Chronic back pain. 13. Degenerative joint disease. 14. Asthma. 15. Hypothyroidism 16. Gastroduodenal ulcers PAST SURGICAL HISTORY: 1. Cholecystectomy 2. Eustachian tubes. 3. Upper endoscopy 4. Gastric bypass 5. Upper endoscopy 6. Lysis of adhesions HOME MEDICATIONS: 1. Reviewed and please see list ALLERGIES: 1. Reviewed and please see last SOCIAL HISTORY: No active tobacco use. Has limited financial resources. FAMILY HISTORY: No family history of ulcerative colitis disease or Crohn's disease. She does have a family history of morbid obesity. She denies any lupus in her family. No reports of stomach or esophageal cancer. She has a family history of diabetes. REVIEW OF ORGAN SYSTEMS: CONSTITUTIONAL: Her highest weight was 395 pounds. At her height of 5 foot 7.25 inches, her ideal body weight is 158 pounds. Her highest body mass index was 61.5. HEENT: Denies any active troubles with hearing. Has troubles with swallowing. Wears glasses. ENDOCRINE: No diabetes. Has hypothyroidism. CARDIOVASCULAR: Reports chest pain. RESPIRATORY: Has somnolence including snoring and sleep apnea. No asthma. GI: Denies any bright red blood per rectum or constipation. Has troubles swallowing. Has change in bowel habits MUSCULOSKELETAL: Has lower back pain and joint pain. Has osteoarthritis of the hips and knees. NEURO: Has headaches. No seizure disorders. Has multiple sclerosis. PSYCH: Has depression without suicidal ideation. Has anxiety. RHEUMATOLOGIC: No lupus. No rheumatoid arthritis. Has multiple sclerosis HEMATOLOGIC: Denies any abnormal bleeding or bruising. No personal history of DVTs. SKIN: Has panniculitis. No skin cancer. : Has bladder urgency. Reports irregular menses. PHYSICAL EXAM: VITAL SIGNS: Reviewed. GENERAL: Well-developed female in no acute distress. HEENT: No scleral icterus. Extraocular movements grossly intact. Hears conversational speech. No nasal drainage. NECK: Supple without lymphadenopathy. CHEST: Nonlabored respirations with equal bilateral excursions. CARDIOVASCULAR: Regular rate. Distal 2+ pulses. ABDOMEN: Obese, soft, nondistended. Tender epigastrium, left upper quadrant, modest MUSCULOSKELETAL: No clubbing, cyanosis. No pitting edema. NEURO: No focal or lateralizing signs. Cranial nerves 2 through 12 grossly within normal limits. PSYCH: Appropriate affect. Alert and oriented to person, place and time. SKIN: Good skin turgor. Well perfused. STUDIES: Pending LABS: Pending ASSESSMENT: 1. Peritoneal adhesions with intermittent bowel obstruction 2. Left upper quadrant abdominal pain 3. Morbid obesity due to excess calories 4. Body mass index 61.5 down to 57.3 5. Irritable bowel syndrome. 6. Obstructive sleep apnea. 7. Osteoarthritis of the hips 8. Hypertensive heart disease. 9. Gastroesophageal reflux disease 10. Anxiety. 11. Depression. 12. Migraines. 13. Overactive bladder. 14. Chronic back pain. 15. Degenerative joint disease. 16. Asthma. 17. Multiple sclerosis 18. Weight gain following bariatric procedure 19. Hypothyroidism 20. History of gastrojejunal ulcer 21 PLAN: 1. Due to the severity of abdominal pain and gastric bypass, patient's elevated risk for bowel obstruction. 2. Admission advised including diagnostic laparoscopy lysis of adhesions. 3. Patient pre-existing history of DVTs. With a BMI over 50 including multiple medical comorbidities, patient elevated risk 4. Continue home medications for multiple sclerosis. 5. 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, Multiple Sclerosis dx November 2018, pt states left leg weak and uses walker ., Bladder retention, frequent flares with panniculitis (worse since weight loss); pt states last 2 weeks since 10/09/20 chest pain and SOB have been increasing, pna History of Any Multi-Drug Resistant Organisms: MRSA Date of last positivie culture/infection: 11/08/17 MDRO Source:: LT INNER THIGH Past Surgical History: Bariatric Surgery, Cholecystectomy, Ear Surgery Additional Past Surgical History / Comment(s): tubes in ears, EGD, laparoscopic [id number] 02-08-2018 , EGD with dilation Past Anesthesia/Blood Transfusion Reactions: No Reported Reaction Past Psychological History: Anxiety, Depression, PTSD Smoking Status: Never smoker Past Alcohol Use History: None Reported Past Drug Use History: None Reported - Past Family History Mother Family Medical History: Diabetes Mellitus Medications and Allergies Home Medications Medication Instructions Recorded Confirmed Type Zonisamide 100 mg PO BID@1200,2100 04/06/15 08/21/21 History Butalb/APAP/Caff 50-325-40Mg 1 tab PO TID PRN 10/05/18 08/21/21 History [Fioricet 50-325-40] Galcanezumab-Gnlm [Emgality Pen] 120 mg SQ Q30D 03/21/19 08/21/21 History ondansetron HCL [Zofran] 8 mg PO TID PRN 03/21/19 08/21/21 History Desvenlafaxine [Pristiq ER] 100 mg PO DAILY 07/04/20 08/21/21 History HYDROcodone/APAP 10-325MG [[place] 1 tab PO TID 07/04/20 08/21/21 History 10-325] Montelukast Sodium [Singulair] 10 mg PO HS 07/04/20 08/21/21 History Levothyroxine Sodium [Synthroid] 50 mcg PO DAILY 08/04/20 08/21/21 History Eletriptan HBr [Relpax] 40 mg PO Q24H PRN 10/15/20 08/21/21 History Ocrevus 1 dose IV Q180D 10/15/20 08/21/21 History Albuterol Sulfate [Proventil Hfa] 2 puff INHALATION RT-QID PRN 10/25/20 08/21/21 History Baclofen [Lioresal] 20 mg PO TID 10/25/20 08/21/21 History Oxybutynin Chloride [Oxybutynin 10 mg PO HS 10/25/20 08/21/21 History Chloride ER] Gabapentin 600 mg PO QID 01/15/21 08/21/21 History Aspirin EC [Ecotrin Low Dose] 81 mg PO HS 04/28/21 08/21/21 History Meclizine [Antivert] 25 mg PO TID PRN 04/28/21 08/21/21 History Omeprazole 40 mg PO HS 04/28/21 08/21/21 History Ondansetron Odt [Zofran ODT] 8 mg PO DAILY 04/28/21 08/21/21 History Rimegepant Sulfate [Nurtec Odt] 75 mg PO DAILY PRN 04/28/21 08/21/21 History Sucralfate [Carafate] 1 gm PO BID PRN 04/28/21 08/21/21 History Desvenlafaxine Succinate [Pristiq 25 mg PO DAILY 06/26/21 08/21/21 History ER] Ergocalciferol [Vitamin D2 (1250 1,250 mcg PO MO 06/26/21 08/21/21 History Mcg = 32498 Iu)] Multivit with Calcium,Iron,Min 1 tab PO DAILY 06/26/21 08/21/21 History [Women's Multivitamin] Sodium Chloride [[place]] 1 spr EA NOSTRIL BID 08/21/21 08/21/21 History busPIRone HCL 15 mg PO QID 08/21/21 08/21/21 History hydrOXYzine pamoate [Vistaril] 50 mg PO TID 08/21/21 08/21/21 History Allergies Allergy/AdvReac Type Severity Reaction Status Date / Time codeine Allergy Anaphylaxis Verified 08/21/21 20:14 peanut Allergy Anaphylaxis Verified 08/21/21 20:14 aspartame AdvReac Diarrhea Verified 08/21/21 20:14 fingolimod [From [place]] AdvReac Abdominal Verified 08/21/21 20:14 Pain ibuprofen AdvReac Abdominal Verified 08/21/21 20:14 Pain lactose AdvReac Nausea & Verified 08/21/21 20:14 Vomiting & Diarrhea Surgical - Exam Vital Signs Temp Pulse Resp BP Pulse Ox 98.2 F 89 18 141/88 95 08/21/21 18:15 08/21/21 18:15 08/21/21 18:15 08/21/21 18:15 08/21/21 18:15 Results - Labs 08/21/21 18:07 08/21/21 18:07 Abnormal Lab Results - Last 24 Hours (Table) 08/21/21 08/21/21 08/21/21 Range/Units 18:07 18:07 18:07 WBC 13.1 H (3.8-10.6) k/uL Neutrophils # 10.8 H (1.3-7.7) k/uL Chloride 109 H (98-107) mmol/L Carbon Dioxide 19 L (22-30) mmol/L Glucose 106 H (74-99) mg/dL Urine Appearance Cloudy H (Clear) Ur Specific [place] 1.044 H (1.001-1.035) Urine Protein 1+ H (Negative) Urine Ketones Trace H (Negative) Ur Leukocyte Esterase Small H (Negative) Ur Squamous Epith Cells 15 H (0-4) /hpf Calcium Oxalate Crystal Occasional H (None) /hpf Amorphous Sediment Rare H (None) /hpf Urine Bacteria Rare H (None) /hpf Hyaline Casts 3 H (0-2) /lpf Urine Mucus Occasional H (None) /hpf Diabetes panel 08/21/21 Range/Units 18:07 Sodium 138 (137-145) mmol/L Potassium 4.1 (3.5-5.1) mmol/L Chloride 109 H (98-107) mmol/L Carbon Dioxide 19 L (22-30) mmol/L BUN 10 (7-17) mg/dL Creatinine 0.72 (0.52-1.04) mg/dL Glucose 106 H (74-99) mg/dL Calcium 9.7 (8.4-10.2) mg/dL AST 21 (14-36) U/L ALT 21 (4-34) U/L Alkaline Phosphatase 93 (38-126) U/L Total Protein 6.8 (6.3-8.2) g/dL Albumin 4.5 (3.5-5.0) g/dL Calcium panel 08/21/21 Range/Units 18:07 Calcium 9.7 (8.4-10.2) mg/dL Albumin 4.5 (3.5-5.0) g/dL Pituitary panel 08/21/21 Range/Units 18:07 Sodium 138 (137-145) mmol/L Potassium 4.1 (3.5-5.1) mmol/L Chloride 109 H (98-107) mmol/L Carbon Dioxide 19 L (22-30) mmol/L BUN 10 (7-17) mg/dL Creatinine 0.72 (0.52-1.04) mg/dL Glucose 106 H (74-99) mg/dL Calcium 9.7 (8.4-10.2) mg/dL Adrenal panel 08/21/21 Range/Units 18:07 Sodium 138 (137-145) mmol/L Potassium 4.1 (3.5-5.1) mmol/L Chloride 109 H (98-107) mmol/L Carbon Dioxide 19 L (22-30) mmol/L BUN 10 (7-17) mg/dL Creatinine 0.72 (0.52-1.04) mg/dL Glucose 106 H (74-99) mg/dL Calcium 9.7 (8.4-10.2) mg/dL Total Bilirubin 0.4 (0.2-1.3) mg/dL AST 21 (14-36) U/L ALT 21 (4-34) U/L Alkaline Phosphatase 93 (38-126) U/L Total Protein 6.8 (6.3-8.2) g/dL Albumin 4.5 (3.5-5.0) g/dL
--- NOTE | 2021-08-22 12:25 | P.PN ---
Subjective Progress Note Date: 08/22/21 CHIEF COMPLAINT: Acute on chronic abdominal pain HISTORY OF PRESENT ILLNESS: Britt Albarran is a 26-year-old female with intra- abdominal adhesions including bowel obstruction. She comes with a BMI over 57 including intractable left upper quadrant abdominal pain with nausea and vomiting. She reports abdominal gas bloat including pain radiates to the left upper quadrant and left upper back. Additional studies has been obtained. Patient reports marked severe persistent abdominal pain. REVIEW OF ORGAN SYSTEMS: CONSTITUTIONAL: Her highest weight was 395 pounds. At her height of 5 foot 7.25 inches, her ideal body weight is 158 pounds. Her highest body mass index was 61.5. RESPIRATORY: Pre-existing history of deep venous thrombosis. GI: Has intractable nausea and vomiting. MUSCULOSKELETAL: Has lower back pain and joint pain. Has osteoarthritis of the hips and knees. NEURO: Has headaches. No seizure disorders. Has multiple sclerosis. PSYCH: Has depression without suicidal ideation. Has anxiety. PHYSICAL EXAM: VITAL SIGNS: Reviewed. GENERAL: Well-developed female in no acute distress. HEENT: No scleral icterus. Extraocular movements grossly intact. Hears conversational speech. No nasal drainage. NECK: Supple without lymphadenopathy. CHEST: Nonlabored respirations with equal bilateral excursions. CARDIOVASCULAR: Regular rate. Distal 2+ pulses. ABDOMEN: Moderate tenderness left upper quadrant. No skin changes. MUSCULOSKELETAL: No clubbing, cyanosis. No pitting edema. NEURO: No focal or lateralizing signs. Cranial nerves 2 through 12 grossly within normal limits. PSYCH: Appropriate affect. Alert and oriented to person, place and time. SKIN: Good skin turgor. Well perfused. STUDIES: CT of the abdomen and pelvis in the panel reviewed demonstrating mode rate stool burden. No mesenteric swirl. No free air. This is my independent interpretation. LABS: CBC would have a white blood cell count of 13,000. Urinalysis with positive calcium oxalate. REPORTS: Abdominal x-ray demonstrates nonacute abdomen. ASSESSMENT: 1. Peritoneal adhesions with intermittent bowel obstruction 2. Left upper quadrant abdominal pain 3. Morbid obesity due to excess calories 4. Body mass index 61.5 down to 57.3 5. Irritable bowel syndrome. 6. Obstructive sleep apnea. 7. Osteoarthritis of the hips 8. Hypertensive heart disease. 9. Gastroesophageal reflux disease 10. Anxiety. 11. Depression. 12. Migraines. 13. Overactive bladder. 14. Chronic back pain. 15. Degenerative joint disease. 16. Asthma. 17. Multiple sclerosis 18. Weight gain following bariatric procedure 19. Hypothyroidism 20. History of gastrojejunal ulcer PLAN: 1. Review of her computed tomography scan, patient still reported consistent symptoms of severe abdominal pain in the presence of gastric bypass. She still elevated risk for peritoneal adhesions and intermittent bowel obstruction. 2. Recommend robotic lysis of adhesions. Patient's elevator risk due to multiple comorbidities. Objective - Vital Signs Vital signs: Vital Signs Temp 98.6 F 08/22/21 11:35 Pulse 68 08/22/21 11:35 Resp 16 08/22/21 11:35 BP 103/66 08/22/21 11:35 Pulse Ox 94 L 08/22/21 08:15 Intake & Output 08/21/21 08/22/21 08/22/21 18:59 06:59 18:59 Intake Total 0 Output Total 2 Balance -2 Weight 166.015 kg Intake: Oral 0 Output: Urine 2 - Labs CBC & Chem 7: 08/21/21 18:07 08/21/21 18:07 Labs: Abnormal Lab Results - Last 24 Hours (Table) 08/21/21 08/21/21 08/21/21 Range/Units 18:07 18:07 18:07 WBC 13.1 H (3.8-10.6) k/uL Neutrophils # 10.8 H (1.3-7.7) k/uL Chloride 109 H (98-107) mmol/L Carbon Dioxide 19 L (22-30) mmol/L Glucose 106 H (74-99) mg/dL Urine Appearance Cloudy H (Clear) Ur Specific [place] 1.044 H (1.001-1.035) Urine Protein 1+ H (Negative) Urine Ketones Trace H (Negative) Ur Leukocyte Esterase Small H (Negative) Ur Squamous Epith Cells 15 H (0-4) /hpf Calcium Oxalate Crystal Occasional H (None) /hpf Amorphous Sediment Rare H (None) /hpf Urine Bacteria Rare H (None) /hpf Hyaline Casts 3 H (0-2) /lpf Urine Mucus Occasional H (None) /hpf
[2021-08-22] MEDS ORDERED: ONDANSETRON 4 MG TAB PO PRN (12:26)
[2021-08-22] MEDS ORDERED: SUMAtriptan succinate 50 MG TAB PO PRN (12:26)
[2021-08-22] MEDS ORDERED: ALBUTEROL NEBULIZED 2.5 MG/3 ML INHALATION PRN (12:26)
[2021-08-22] MEDS ORDERED: NON FORMULARY DRUG (Rimegepant Sulfate [Nurtec Odt] 75 MG Tablet) PO PRN (12:26)
[2021-08-22] MEDS ORDERED: IV FLUID CONTINUATION 1,000 ML IV ONE (14:22)
[2021-08-22] MEDS ORDERED: DEXAMETHASONE SOD PHOSPHATE 4 MG/ML 1 ML VIAL IVP ONE (14:22)
[2021-08-22] MEDS ORDERED: ONDANSETRON 4 MG/2 ML VIAL IVP ONE (14:23)
[2021-08-22] MEDS: ZONISAMIDE 100 MG CAP PO SCH ×2 (14:53→20:58)
[2021-08-22] MEDS: ENOXAPARIN 40 MG/0.4 ML SYRINGE SQ SCH ×2 (14:53→15:06)
[2021-08-22] MEDS ORDERED: fentaNYL (PF) 50 MCG/ML 2 ML AMP IVP ONE (14:55)
[2021-08-22] MEDS ORDERED: GLYCOPYRROLATE 0.2 MG/ML 2 ML VIAL ONE (15:52)
[2021-08-22] MEDS ORDERED: KETAMINE 10 MG/ML 20 ML VIAL ONE (15:52)
[2021-08-22] MEDS ORDERED: HYDROmorphone (PF) 1 MG/ML ONE (15:52)
[2021-08-22] MEDS ORDERED: LIDOCAINE 1% INJ 10MG/ML (20 ML MDV) ONE (15:52)
[2021-08-22] MEDS ORDERED: ROCURONIUM 10 MG/ML (5 ML VIAL) IV ONE (15:52)
[2021-08-22] MEDS ORDERED: NEOSTIGMINE 1 MG/ML 10 ML VIAL ONE (15:52)
[2021-08-22] MEDS ORDERED: fentaNYL (PF) 50 MCG/ML 2 ML AMP ONE (15:52)
[2021-08-22] MEDS ORDERED: MIDAZOLAM 2 MG/2 ML VIAL ONE (15:52)
[2021-08-22] MEDS ORDERED: PROPOFOL 10 MG/ML 20 ML VIAL IV ONE (15:52)
[2021-08-22] MEDS ORDERED: SUCCINYLCHOLINE CHLORIDE VIAL 200 MG/10 ML VIAL IV ONE (15:52)
[2021-08-22] MEDS ORDERED: LIDOCAINE 1%-EPI 1:100,000 20 ML VIAL SQ ONE (16:31)
[2021-08-22] MEDS ORDERED: LACTATED RINGERS 1,000 ML IV ONE (17:01)
--- NOTE | 2021-08-22 18:37 | P.OP ---
Date of Procedure: 08/22/21 Description of Procedure: SURGEON: TEZ SOLIS MD PREOPERATIVE DIAGNOSES: 1. Peritoneal adhesions with intermittent bowel obstruction 2. Left upper quadrant abdominal pain 3. Morbid obesity due to excess calories 4. Body mass index 61.5 down to 57.3 5. Irritable bowel syndrome. 6. Obstructive sleep apnea. 7. Osteoarthritis of the hips 8. Hypertensive heart disease. 9. Gastroesophageal reflux disease 10. Anxiety. 11. Depression. 12. Migraines. 13. Overactive bladder. 14. Chronic back pain. 15. Degenerative joint disease. 16. Asthma. 17. Multiple sclerosis 18. Weight gain following bariatric procedure 19. Hypothyroidism 20. History of gastrojejunal ulcer POSTOPERATIVE DIAGNOSES: 1. Peritoneal adhesions with internal hernia at left upper quadrant 2. Left upper quadrant abdominal pain 3. Morbid obesity due to excess calories 4. Body mass index 61.5 down to 57.3 5. Irritable bowel syndrome. 6. Obstructive sleep apnea. 7. Osteoarthritis of the hips 8. Hypertensive heart disease. 9. Gastroesophageal reflux disease 10. Anxiety. 11. Depression. 12. Migraines. 13. Overactive bladder. 14. Chronic back pain. 15. Degenerative joint disease. 16. Asthma. 17. Multiple sclerosis 18. Weight gain following bariatric procedure 19. Hypothyroidism 20. History of gastrojejunal ulcer OPERATION: 1. Robotic-assisted da Olga Xi laparoscopic with extensive lysis of adhesions over 1 hr 2. Robotic-assisted da Olga Xi laparoscopic closure of internal hernia 2 ESTIMATED BLOOD LOSS: 5 mL. SPECIMENS REMOVED: None. COMPLICATIONS: None. OPERATIVE FINDINGS: 1. Peritoneal adhesions and omentum to jejunojejunostomy 2. Garcia's defect with internal hernia closed 3. Jejunojejunostomy internal hernia closed INDICATIONS: The patient is a 26-year-old female who presents with left upper quadrant abdominal pain, moderate to severe including gastric bypass. Surgical intervention with diagnostic laparoscopy, lysis of adhesions were described. Informed consent was obtained. Robotic assisted laparoscopic approach was described. Benefits and risks of the procedure including but not limited to bleeding, infection, injury to the small bowel was described. Informed consent was obtained. DESCRIPTION OF PROCEDURE: Patient was brought to the operating room, placed in supine position. After general induction, the abdomen had been prepped and draped in standard sterile fashion. The robotic da Olga XI system was primed. After a timeout protocol was performed, the patient had been prepped and draped in standard sterile fashion. The robot was docked along the right lateral abdomen. The patient was repositioned in with right side up. Please note prior to docking of the robot; however, a 5 mm 0 degrees laparoscopic trocar entry was performed along the left upper quadrant. The abdomen was insufflated to 15 mmHg pressure which she tolerated well. Diagnostic laparoscopy was performed. Next, three 8 mm robotic ports were placed along the right lateral abdominal wall. The camera 8-mm port was maintained along mid-lateral abdomen. Please note that the ports were placed at least 10 to 15 cm away from the target anatomy. The 5 mm trocar was upgraded to a 12 mm trocar. Instruments including graspers, needle sanitation truck driver and vessel sealer were interchanged by the family readiness support assistant. I had sat at the console. No evidence of incisional hernia was identified. The small bowel from the cecil limb to ileocecal valve was inspected including ligament of Treitz distally. The small bowel was investigated from the terminal ileum to the ligament of Treitz with finding of adhesions incorporating the biliopancreatic limb of the jejunoje junostomy. Separately, open jejunojejunostomy mesenteric defect was found without herniation of small bowel. Abnormal adhesions to the jejunojejunostomy was identified and divided. The redundant portion of the biliopancreatic limb of 5 cm was found distal to the jejunojejunostomy. Adhesions of the redundant portion of the biliopancreatic limb was divided using vessel sealer. The Garcia defect was also opened without herniation of small bowel. The Garcia's defect and jejunojejunostomy site and the defect were oversewn using 2-0 V-LOC. The length of the Cecil limb was 90 cm and biliopancreatic limb was 40 cm. The terminal ileum and cecum was unremarkable. Extensive lysis of adhesions over 1 hr was performed. The small bowel was viable.The robot was undocked. All pneumoperitoneum instruments were evacuated from the abdominal cavity. The incisions were reapproximated using 4-0 Monocryl in an interrupted subcuticular fashion. Please note along the trocar sites, local anesthetic was placed as a field block prior to insertion of all instruments. Exofin was applied to the skin. At the end of the procedure needle, sponge, and instrument count had been verified correct by the certified ophthalmic surgical assistant. The patient was transferred to postanesthesia care unit in stable condition.
[2021-08-22] MEDS ORDERED: SODIUM CHLORIDE 0.9% 2,000 ML IV ONE (18:38)
[2021-08-22] MEDS: PANTOPRAZOLE 40 MG TABLET PO SCH (20:58)
[2021-08-22] MEDS: MONTELUKAST 10 MG TAB PO SCH (20:59)
[2021-08-22] MEDS ORDERED: OXYBUTYNIN 10 MG TAB.ER.24 PO SCH (21:00)
[2021-08-22] MEDS ORDERED: ASPIRIN 81 MG PO SCH (21:00)
[2021-08-22] MEDS: BUTALB/APAP/CAFF 50-325-40MG TAB PO PRN (21:50)
[2021-08-22] MEDS: HYDROmorphone 1 MG/ML 1 ML SYRINGE IVP PRN (22:39)
[2021-08-23] MEDS: SODIUM CHLORIDE 0.9% 1,000 ML IV SCH ×3 (02:13→09:02)
[2021-08-23] MEDS: HYDROmorphone 1 MG/ML 1 ML SYRINGE IVP PRN ×4 (02:48→16:32)
[2021-08-23] MEDS: LEVOTHYROXINE 50 MCG TAB PO SCH (05:58)
[2021-08-23] MEDS ORDERED: ceFAZolin 3 GM in SODIUM CHLORIDE 0.9% 100 ML IVPB PRN (07:00)
[2021-08-23] MEDS: GABAPENTIN 300 MG CAP PO SCH ×2 (08:53→12:07)
[2021-08-23] MEDS: busPIRone HCl 5 MG TAB PO SCH ×2 (08:53→12:07)
[2021-08-23] MEDS: BACLOFEN 10 MG TAB PO SCH ×2 (08:53→15:14)
[2021-08-23] MEDS: hydrOXYzine pamoate 25 MG CAP PO SCH ×2 (08:53→15:14)
[2021-08-23] MEDS: SUCRALFATE 1 GM TAB PO SCH ×2 (08:53→12:07)
[2021-08-23] MEDS: HYDROcodone/APAP 10-325MG 1 EACH TAB PO SCH ×2 (08:53→15:14)
[2021-08-23] MEDS: DESVENLAFAXINE SUCCINATE 50 MG TAB.ER.24H PO SCH ×2 (08:55)
[2021-08-23] MEDS: ONDANSETRON 4 MG/2 ML VIAL IVP PRN (08:57)
[2021-08-23] MEDS ORDERED: MULTIVITAMINS, THERA 1 EACH TAB PO SCH (09:00)
[2021-08-23 09:15] LABS: Basophils # (A) 0.02 X 10*3/uL (0.00-0.10); Basophils % (A) 0.2 %; Eosinophils # (A) 0.01 X 10*3/uL (0.04-0.35); Eosinophils % (A) 0.1 %; HGB 11.6 g/dL (12.0-15.0); Immature Grans, Automated 0.2 %; Lymphocytes # (A) 1.84 X 10*3/uL (0.90-5.00); Lymphocytes % (A) 20.2 %; MCH 31.3 pg (27.0-32.0); MCHC 32.2 g/dL (32.0-37.0); Mean Platelet Volume 11.9 fL (9.5-12.2); Monocytes # (A) 0.71 X 10*3/uL (0.20-1.00); Monocytes % (A) 7.8 %; NRBC Per 100 WBC 0 /100 WBCS (0.0-0.0); Neutrophils # (A) 6.51 X 10*3/uL (1.80-7.70); Neutrophils % (A) 71.5 %; Platelet Count 190 X 10*3/uL (140-440); RBC 3.71 X 10*6/uL (4.10-5.20); RDW 12.6 % (11.5-14.5); WBC 9.11 X 10*3/uL (4.50-10.00)
[2021-08-23] MEDS: ZONISAMIDE 100 MG CAP PO SCH (12:08)
[2021-08-23] MEDS: ENOXAPARIN 40 MG/0.4 ML SYRINGE SQ SCH (12:08)
[2021-08-23] MEDS ORDERED: SIMETHICONE 40 MG/0.6 ML DROPS 2,000 MG/30 ML BOTTLE PO SCH (14:15)
--- NOTE | 2021-08-23 14:29 | P.DS ---
Providers Date of admission: 08/21/21 19:24 Expected date of discharge: 08/23/21 Attending physician: Evie Garg Primary care physician: Parminder Torres Patient Condition at Discharge: Stable Plan - Discharge Summary New Discharge Prescriptions: New Sucralfate [Carafate] 1 gm PO BID #60 tablet Simethicone [Gas-X] 125 mg PO AC-TID PRN #20 capsule PRN Reason: Pain Acetaminophen Tab [Tylenol Tab] 500 mg PO Q6H PRN #30 tablet PRN Reason: Pain Continue Zonisamide 100 mg PO BID@1200,2100 Butalb/APAP/Caff 50-325-40Mg [Fioricet 50-325-40] 1 tab PO TID PRN PRN Reason: Migraine Headache ondansetron HCL [Zofran] 8 mg PO TID PRN PRN Reason: Nausea Galcanezumab-Gnlm [Emgality Pen] 120 mg SQ Q30D Desvenlafaxine [Pristiq ER] 100 mg PO DAILY Montelukast Sodium [Singulair] 10 mg PO HS HYDROcodone/APAP 10-325MG [[place] 10-325] 1 tab PO TID Levothyroxine Sodium [Synthroid] 50 mcg PO DAILY Ocrevus 1 dose IV Q180D Baclofen [Lioresal] 20 mg PO TID Oxybutynin Chloride [Oxybutynin Chloride ER] 10 mg PO HS Gabapentin 600 mg PO QID Aspirin EC [Ecotrin Low Dose] 81 mg PO HS Multivit with Calcium,Iron,Min [Women's Multivitamin] 1 tab PO DAILY Eletriptan HBr [Relpax] 40 mg PO Q24H PRN PRN Reason: Migraine Headache Albuterol Sulfate [Proventil Hfa] 2 puff INHALATION RT-QID PRN PRN Reason: Shortness Of Breath Ondansetron Odt [Zofran ODT] 8 mg PO DAILY Rimegepant Sulfate [Nurtec Odt] 75 mg PO DAILY PRN PRN Reason: Migraine Headache Omeprazole 40 mg PO HS Meclizine [Antivert] 25 mg PO TID PRN PRN Reason: Vertigo Ergocalciferol [Vitamin D2 (1250 Mcg = 36468 Iu)] 1,250 mcg PO MO Desvenlafaxine Succinate [Pristiq] 25 mg PO DAILY busPIRone HCL 15 mg PO QID hydrOXYzine pamoate [Vistaril] 50 mg PO TID Sodium Chloride [[place]] 1 spr EA NOSTRIL BID Discontinued Sucralfate [Carafate] 1 gm PO BID PRN PRN Reason: Gi Upset Discharge Medication List Zonisamide 100 mg PO BID@1200,2100 04/06/15 [History] Butalb/APAP/Caff 50-325-40Mg [Fioricet 50-325-40] 1 tab PO TID PRN 10/05/18 [History] Galcanezumab-Gnlm [Emgality Pen] 120 mg SQ Q30D 03/21/19 [History] ondansetron HCL [Zofran] 8 mg PO TID PRN 03/21/19 [History] Desvenlafaxine [Pristiq ER] 100 mg PO DAILY 07/04/20 [History] HYDROcodone/APAP 10-325MG [[place] 10-325] 1 tab PO TID 07/04/20 [History] Montelukast Sodium [Singulair] 10 mg PO HS 07/04/20 [History] Levothyroxine Sodium [Synthroid] 50 mcg PO DAILY 08/04/20 [History] Eletriptan HBr [Relpax] 40 mg PO Q24H PRN 10/15/20 [History] Ocrevus 1 dose IV Q180D 10/15/20 [History] Albuterol Sulfate [Proventil Hfa] 2 puff INHALATION RT-QID PRN 10/25/20 [History] Baclofen [Lioresal] 20 mg PO TID 10/25/20 [History] Oxybutynin Chloride [Oxybutynin Chloride ER] 10 mg PO HS 10/25/20 [History] Gabapentin 600 mg PO QID 01/15/21 [History] Aspirin EC [Ecotrin Low Dose] 81 mg PO HS 04/28/21 [History] Meclizine [Antivert] 25 mg PO TID PRN 04/28/21 [History] Omeprazole 40 mg PO HS 04/28/21 [History] Ondansetron Odt [Zofran ODT] 8 mg PO DAILY 04/28/21 [History] Rimegepant Sulfate [Nurtec Odt] 75 mg PO DAILY PRN 04/28/21 [History] Desvenlafaxine Succinate [Pristiq] 25 mg PO DAILY 06/26/21 [History] Ergocalciferol [Vitamin D2 (1250 Mcg = 96413 Iu)] 1,250 mcg PO MO 06/26/21 [History] Multivit with Calcium,Iron,Min [Women's Multivitamin] 1 tab PO DAILY 06/26/21 [History] Sodium Chloride [[place]] 1 spr EA NOSTRIL BID 08/21/21 [History] busPIRone HCL 15 mg PO QID 08/21/21 [History] hydrOXYzine pamoate [Vistaril] 50 mg PO TID 08/21/21 [History] Acetaminophen Tab [Tylenol Tab] 500 mg PO Q6H PRN #30 tablet 08/22/21 [Rx] Simethicone [Gas-X] 125 mg PO AC-TID PRN #20 capsule 08/22/21 [Rx] Sucralfate [Carafate] 1 gm PO BID #60 tablet 08/22/21 [Rx] Follow up Appointment(s)/Referral(s): Parminder Torres DO [Primary Care Provider] - 1-2 days Bariatric [place], [place] [NON-STAFF] - 09/06/21 9:00 am Patient Instructions/Handouts: Lysis of Abdominal Adhesions (DC) Activity/Diet/Wound Care/Special Instructions: START OCREVUS INFUSION 2 WEEKS AFTER SURGERY (August) No lifting over 10 pounds in 2 weeks until SEPTEMBER 05. May shower. No bath tub soaks for two weeks until SEPTEMBER 05. Diet as tolerated. Use Tylenol, simethicone and ibuprofen or Aleve scheduled for the next 24-48 hours for best pain relief. Use ice along incisions for today to prevent swelling. Discharge Disposition: HOME SELF-CARE
[2021-08-23 15:13] VITALS: BP 117/71; PULSE 64; RESP 19; TEMP 97.8
[2021-08-23] MEDS: BUTALB/APAP/CAFF 50-325-40MG TAB PO PRN (16:31)
[2021-08-26] MEDS ORDERED: ERGOCALCIFEROL 1,250 MCG (50,000 IU) CAPSULE PO SCH (09:00)
== END 2021-08-23 18:05 | disposition home or self-care (01) ==
LOC: EC 17:21 → INTOOBSV 19:24 → 5NMEDONC 19:24 → UNDODISIN 08-23 18:05
PROVIDERS: ADMIT Surgery Plastic and Reconstructive Surgery; ATTEND Surgery Plastic and Reconstructive Surgery
PROC: 8E0W4CZ Robotic Assisted Procedure of Trunk Region, Percutaneous Endoscopic Approach (ICD-10-PCS; principal; 2021-08-22 09:20)
PROC: 0WQF4ZZ Repair Abdominal Wall, Percutaneous Endoscopic Approach (ICD-10-PCS; principal; 2021-08-22 09:20)
PROC: 0DNU4ZZ Release Omentum, Percutaneous Endoscopic Approach (ICD-10-PCS; principal; 2021-08-22 09:20)
PROC: 0DNA4ZZ Release Jejunum, Percutaneous Endoscopic Approach (ICD-10-PCS; principal; 2021-08-22 09:20)
DX: K56.50 Intestinal adhesions [bands], unspecified as to partial versus complete obstruction (principal); K94.19 Other complications of enterostomy; K46.9 Unspecified abdominal hernia without obstruction or gangrene; E03.9 Hypothyroidism, unspecified; E66.01 Morbid (severe) obesity due to excess calories; F32.A Depression, unspecified; F43.10 Post-traumatic stress disorder, unspecified; G35 Multiple sclerosis; Z98.84 Bariatric surgery status; F04 Amnestic disorder due to known physiological condition; G47.33 Obstructive sleep apnea (adult) (pediatric); I11.9 Hypertensive heart disease without heart failure; M54.9 Dorsalgia, unspecified; Z68.43 Body mass index [BMI] 50.0-59.9, adult; G89.29 Other chronic pain; J45.909 Unspecified asthma, uncomplicated; N32.81 Overactive bladder; Z87.01 Personal history of pneumonia (recurrent); Z90.49 Acquired absence of other specified parts of digestive tract; K58.9 Irritable bowel syndrome, unspecified; K21.9 Gastro-esophageal reflux disease without esophagitis; M17.0 Bilateral primary osteoarthritis of knee; M16.0 Bilateral primary osteoarthritis of hip; Z79.890 Hormone replacement therapy; Z79.01 Long term (current) use of anticoagulants; Z79.899 Other long term (current) drug therapy; Z79.891 Long term (current) use of opiate analgesic; Z88.6 Allergy status to analgesic agent; Z88.8 Allergy status to other drugs, medicaments and biological substances; Z91.010 Allergy to peanuts; Z88.5 Allergy status to narcotic agent; Z86.718 Personal history of other venous thrombosis and embolism; Z87.11 Personal history of peptic ulcer disease; Z86.69 Personal history of other diseases of the nervous system and sense organs; Z86.711 Personal history of pulmonary embolism; Z86.14 Personal history of Methicillin resistant Staphylococcus aureus infection; Z83.3 Family history of diabetes mellitus
CPT/HCPCS: 99285; 96374; 36415; 81025 ×2; 80053; 83605; 83690; 85025 ×2; 81001; 74018; 74177; G0378 ×3; J2250; J0330; J1100; J2710; J0690; J2405 ×2; J2001; J1650 ×2; J3010; J1170 ×3; J2704; Q9967; G0463; 99211

== ENCOUNTER → 2021-08-21 | Outpatient (CLI) | payer OTHER ==
[2021-08-21 16:58] VITALS: BP 121/92; PULSE 108; RESP 12; TEMP 98.4; BMI 57.3
--- NOTE | 2021-08-21 17:09 | P.BASOAP ---
Subjective Progress Note Date: 08/21/21 She comes in with abdominal pain. History of bowel obstruction. Recommend ER for CT scan and admission. She has regained her weight back from 366 to 380 pounds. She reports left upper quadrant pain. She is now off her. She will be on her IUD 09/02/21. Needs lysis of adhesions. She had a blood clot to her lung. She was on blood thinner for 6 months. Objective - Vital Signs Vital signs: Vital Signs Temp 98.4 F 08/21/21 15:43 Pulse 108 H 08/21/21 15:43 Resp 12 08/21/21 15:43 BP 121/92 08/21/21 15:43 Pulse Ox Intake & Output 08/20/21 08/21/21 08/21/21 18:59 06:59 18:59 Weight 166.151 kg Assessment/Plan Plan: Date: 08/21/21 Initial Weight: 172.365 kg Initial BMI: 59.5 Current Weight: 166.151 kg Current BMI: 57.3 Type of Surgery: Total Volume in Band: Previous Volume: Volume Removed: Volume Added: Band Size:
== END | disposition home or self-care (01) ==
LOC: BARWHC3 15:43
PROVIDERS: ATTEND Surgery Plastic and Reconstructive Surgery
DX: R10.12 Left upper quadrant pain (principal)
CPT/HCPCS: 99211

== ENCOUNTER 2021-09-25 22:02 | Emergency (ER) | payer OTHER ==
[2021-09-25 22:37] VITALS: BP 141/94; PULSE 86; RESP 16; TEMP 98.7
--- NOTE | 2021-09-25 23:30 | CT ---
EXAMINATION TYPE: CT brain cspine wo con DATE OF EXAM: 09/25/2021 COMPARISON: None HISTORY: LAMP FELL ON HEAD 2 DAYS AGO, HEADACHE GETTING WORSE. CT DLP: 1182.6 mGycm Automated exposure control for dose reduction was used. Images obtained of the brain and cervical spine without contrast. Ventricles have normal size. There is no mass effect or midline shift. There is no sign of intracrani al hemorrhage. The calvarium is intact. Skull base is intact. The cervical vertebra show some straightening. Posterior element are intact. Facet joints are intact. Disc spaces are fairly normal. Prevertebral soft tissues are intact. Exam limited by patient's size. IMPRESSION: Negative CT scan of the cervical spine. No fracture. Negative CT scan of the brain.
--- NOTE | 2021-09-25 23:40 | XR ---
EXAMINATION TYPE: XR knee complete LT DATE OF EXAM: 09/25/2021 COMPARISON: NONE HISTORY: Fall. Knee pain TECHNIQUE: 3 views FINDINGS: I see no fracture nor dislocation. Joint spaces are normal. No sign of knee joint effusion. IMPRESSION: Negative left knee exam.
[2021-09-26] MEDS ORDERED: KETOROLAC 15 MG/ML 1 ML VIAL IM STA (01:05)
--- NOTE | 2021-09-26 01:12 | ED ---
General Adult HPI - General Chief complaint: Head Injury Stated complaint: Laceration on head/Fall L Leg Knee swollen Time Seen by Provider: 09/26/21 00:55 Source: patient, RN notes reviewed, old records reviewed Mode of arrival: ambulatory Limitations: no limitations - History of Present Illness Initial comments: This is a well-appearing 26-year-old female presents to the emergency room with complaints of left knee pain since September 19. Patient states that she was walking up a hill and fell landing on her left kirkpatrick and left knee. She states that she developed a large bruise to her kirkpatrick with swelling that is painful to touch. She states that she also had a head injury on the when she was reclining in a chair and leaned back causing a lamp to fall and hit her in the head. She has a small 0.5 cm healed laceration to the top of her head. She states that since the lamp hit her she's been having headaches. -: days(s) (4) Location: head, left, lower extremity (knee) Severity scale (1-10): 9 Quality: aching, constant Worsens with: movement - Related Data Home Medications Medication Instructions Recorded Confirmed Zonisamide 100 mg PO BID@1200,2100 04/06/15 08/21/21 Butalb/APAP/Caff 50-325-40Mg 1 tab PO TID PRN 10/05/18 08/21/21 [Fioricet 50-325-40] Galcanezumab-Gnlm [Emgality Pen] 120 mg SQ Q30D 03/21/19 08/21/21 ondansetron HCL [Zofran] 8 mg PO TID PRN 03/21/19 08/21/21 Desvenlafaxine [Pristiq ER] 100 mg PO DAILY 07/04/20 08/21/21 HYDROcodone/APAP 10-325MG [[place] 1 tab PO TID 07/04/20 08/21/21 10-325] Montelukast Sodium [Singulair] 10 mg PO HS 07/04/20 08/21/21 Levothyroxine Sodium [Synthroid] 50 mcg PO DAILY 08/04/20 08/21/21 Eletriptan HBr [Relpax] 40 mg PO Q24H PRN 10/15/20 08/21/21 Ocrevus 1 dose IV Q180D 10/15/20 08/21/21 Albuterol Sulfate [Proventil Hfa] 2 puff INHALATION RT-QID PRN 10/25/20 08/21/21 Baclofen [Lioresal] 20 mg PO TID 10/25/20 08/21/21 Oxybutynin Chloride [Oxybutynin 10 mg PO HS 10/25/20 08/21/21 Chloride ER] Gabapentin 600 mg PO QID 01/15/21 08/21/21 Aspirin EC [Ecotrin Low Dose] 81 mg PO HS 04/28/21 08/21/21 Meclizine [Antivert] 25 mg PO TID PRN 04/28/21 08/21/21 Omeprazole 40 mg PO HS 04/28/21 08/21/21 Ondansetron Odt [Zofran ODT] 8 mg PO DAILY 04/28/21 08/21/21 Rimegepant Sulfate [Nurtec Odt] 75 mg PO DAILY PRN 04/28/21 08/21/21 Desvenlafaxine Succinate [Pristiq] 25 mg PO DAILY 06/26/21 08/21/21 Ergocalciferol [Vitamin D2 (1250 1,250 mcg PO MO 06/26/21 08/21/21 Mcg = 84203 Iu)] Multivit with Calcium,Iron,Min 1 tab PO DAILY 06/26/21 08/21/21 [Women's Multivitamin] Sodium Chloride [[place]] 1 spr EA NOSTRIL BID 08/21/21 08/21/21 busPIRone HCL 15 mg PO QID 08/21/21 08/21/21 hydrOXYzine pamoate [Vistaril] 50 mg PO TID 08/21/21 08/21/21 Previous Rx's Medication Instructions Recorded Acetaminophen Tab [Tylenol Tab] 500 mg PO Q6H PRN #30 tablet 08/22/21 Simethicone [Gas-X] 125 mg PO AC-TID PRN #20 capsule 08/22/21 Sucralfate [Carafate] 1 gm PO BID #60 tablet 08/22/21 Allergies Allergy/AdvReac Type Severity Reaction Status Date / Time codeine Allergy Anaphylaxis Verified 09/25/21 22:37 peanut Allergy Anaphylaxis Verified 09/25/21 22:37 aspartame AdvReac Diarrhea Verified 09/25/21 22:37 fingolimod [From NeituienPixable] AdvReac Abdominal Verified 09/25/21 22:37 Pain ibuprofen AdvReac Abdominal Verified 09/25/21 22:37 Pain lactose AdvReac Nausea & Verified 09/25/21 22:37 Vomiting & Diarrhea Review of Systems ROS Statement: Those systems with pertinent positive or pertinent negative responses have been documented in the HPI. ROS Other: All systems not noted in ROS Statement are negative. 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, Multiple Sclerosis dx November 2018, pt states left leg weak and uses walker ., Bladder retention, frequent flares with panniculitis (worse since weight loss); pt states last 2 weeks since 10/09/20 chest pain and SOB have been increasing, pna History of Any Multi-Drug Resistant Organisms: MRSA Date of last positivie culture/infection: 11/08/17 MDRO Source:: LT INNER THIGH Past Surgical History: Bariatric Surgery, Cholecystectomy, Ear Surgery Additional Past Surgical History / Comment(s): tubes in ears, EGD, laparoscopic [id number] 02-08-2018 , EGD with dilation Past Anesthesia/Blood Transfusion Reactions: No Reported Reaction Past Psychological History: Anxiety, Depression, PTSD Smoking Status: Never smoker Past Alcohol Use History: None Reported Past Drug Use History: None Reported - Past Family History Mother Family Medical History: Diabetes Mellitus General Exam Limitations: no limitations General appearance: alert, in no apparent distress Head exam: Present: other (Healed 0.5 cm superficial laceration to frontal) Eye exam: Present: normal appearance, PERRL, EOMI. Absent: scleral icterus, conjunctival injection, nystagmus, periorbital swelling, periorbital tenderness Pupils: Present: normal accommodation Respiratory exam: Absent: respiratory distress, accessory muscle use Cardiovascular Exam: Present: regular rate GI/Abdominal exam: Present: soft. Absent: distended Extremities exam: Present: normal capillary refill Left Knee exam: Present: full knee extension. Absent: tenderness, swelling, ecchymosis, deformity, dislocation, erythema, effusion Lower Leg exam: Present: tenderness, swelling, ecchymosis (mid kirkpatrick, yellow/green bruising with hematoma and abrasions) Ankle exam: Present: normal inspection, full ROM. Absent: tenderness Neurovascular tendon exam: Present: no vascular compromise. Absent: abnormal cap refill, extremity cold to touch Neurological exam: Present: alert, oriented X3 Psychiatric exam: Present: normal affect, normal mood Skin exam: Present: warm, dry, intact. Absent: cyanosis, diaphoretic Course Vital Signs 09/25/21 22:34 Temperature 98.7 F Pulse Rate 86 Respiratory 16 Rate Blood Pressure 141/94 O2 Sat by Pulse 97 Oximetry Medical Decision Making - Medical Decision Making Patient presents with left kirkpatrick bruising from a fall on September 19. She also has a healed superficial laceration to the frontal scalp she obtained when a lamp fell on her head on the . She denies loss of consciousness. CT of the brain and C-spine negative, x-ray of the left knee negative for fracture. Patient was given a shot of Toradol for her leg pain. She was directed to take Tylenol and Motrin as need for pain. She was also directed to use bacitracin once a day to the scalp abrasion. Follow up with her primary care doctor and neurologist for persistent headaches after minor head injury. Vital signs are stable. Disposition Clinical Impression: Hematoma, Knee pain, left, Head injury, Abrasion head Disposition: HOME SELF-CARE Condition: Good Instructions (If sedation given, give patient instructions): Acute Headache (ED), Abrasion (ED), Knee Pain (ED), Hematoma (ED) Additional Instructions: Take Tylenol and/or Motrin as needed for any headaches or knee pain. Follow-up with the primary care doctor and neurologist next week. Return to the emergency room with any new or concerning symptoms. Is patient prescribed a controlled substance at d/c from ED?: No Referrals: Parminder Torres DO [Primary Care Provider] - 1-2 days Time of Disposition: 01:12
[2021-09-26] MEDS ORDERED: ONDANSETRON ODT 4 MG TAB PO STA (01:16)
== END 2021-09-26 01:36 | disposition home or self-care (01) ==
LOC: EC 22:02
DX: S01.01XA Laceration without foreign body of scalp, initial encounter (principal); S80.02XA Contusion of left knee, initial encounter; J45.909 Unspecified asthma, uncomplicated; F32.A Depression, unspecified; F41.9 Anxiety disorder, unspecified; Z79.82 Long term (current) use of aspirin; Z79.51 Long term (current) use of inhaled steroids; Z79.899 Other long term (current) drug therapy; W18.30XA Fall on same level, unspecified, initial encounter; W20.8XXA Other cause of strike by thrown, projected or falling object, initial encounter; Y93.01 Activity, walking, marching and hiking
CPT/HCPCS: 73562; 72125; 70450; 99284; 96372; J1885

== ENCOUNTER 2021-11-16 01:26 | Emergency (ER) | payer OTHER ==
[2021-11-16] MEDS ORDERED: METOCLOPRAMIDE 5 MG/ML 2 ML VIAL IVP STA (02:00)
[2021-11-16] MEDS ORDERED: diphenhydrAMINE 50 MG/ML 1 ML VIAL IVP STA (02:00)
[2021-11-16] MEDS ORDERED: SODIUM CHLORIDE 0.9% 500 ML 500 ML IV STA (02:00)
[2021-11-16] MEDS ORDERED: MORPHINE SULFATE 4 MG/ML SYRINGE IV STA (02:02)
--- NOTE | 2021-11-16 02:05 | ED ---
Headache HPI - General Source: RN notes reviewed Mode of arrival: wheelchair - History of Present Illness MD Complaint: headache <Bruno Rodriguez - Last Filed: 11/16/21 03:06> - History of Present Illness MD Complaint: "migraine" -: week(s) Onset Description: gradual Location: temporal, occipital Severity: severe Severity scale (1-10): 9 Quality: throbbing, sharp Consistency: intermittent Improves With: nothing Worsens With: none Associated Symptoms: nausea, vomiting Other Symptoms: rash, eye pain/redness Treatments Prior to Arrival: none <Ramone Jiménez - Last Filed: 11/16/21 04:04> - General Chief Complaint: Headache Stated Complaint: dizziness, fever, neck pain, migrane Time Seen by Provider: 11/16/21 01:44 - History of Present Illness Initial Comments: This is a pleasant 26-year-old female with a history of migraine headaches. Patient has multiple other medical problems as indicated in the chart. These do include pulmonary embolism, Wernicke-Korsakoff syndrome, low magnesium, multiple sclerosis. Patient presents to the emergency department today stating that she had a headache which started on November 04. Patient states this is a variant from her normal migraine headache. She describing a global dull sensation with stabbing pains in the back of her head which radiates from her neck to her head. She is also complaining of some intermittent confusion, intermittent "double and sometimes triple vision. "She states she has not had these symptoms previously. She does have a neurologist, Dr. Delgado. Patient denies any falls or injury. She does describe some balance issues. No focal weakness. Current pain is 7 out of 10 in intensity. Patient was seen at [facility] on October 11 and was treated for migraine headache and released. , Patient has had some nausea and vomiting, subjective fevers, headache,, no changes hearing, no sore throat or difficulty with speech, no chest pain or shortness of breath, no abdominal pain,, no changes in urination or bowel moveme nts, no numbness or tingling, no extremity pain, no skin rashes or lesions. (Bruno Rodriguez) - Related Data Home Medications Medication Instructions Recorded Confirmed Zonisamide 100 mg PO BID@1200,2100 04/06/15 08/21/21 Butalb/APAP/Caff 50-325-40Mg 1 tab PO TID PRN 10/05/18 08/21/21 [Fioricet 50-325-40] Galcanezumab-Gnlm [Emgality Pen] 120 mg SQ Q30D 03/21/19 08/21/21 ondansetron HCL [Zofran] 8 mg PO TID PRN 03/21/19 08/21/21 Desvenlafaxine [Pristiq ER] 100 mg PO DAILY 07/04/20 08/21/21 HYDROcodone/APAP 10-325MG [[place] 1 tab PO TID 07/04/20 08/21/21 10-325] Montelukast Sodium [Singulair] 10 mg PO HS 07/04/20 08/21/21 Levothyroxine Sodium [Synthroid] 50 mcg PO DAILY 08/04/20 08/21/21 Eletriptan Hydrobromide [Relpax] 40 mg PO Q24H PRN 10/15/20 08/21/21 Ocrevus 1 dose IV Q180D 10/15/20 08/21/21 Albuterol Sulfate [Proventil Hfa] 2 puff INHALATION RT-QID PRN 10/25/20 08/21/21 Baclofen [Lioresal] 20 mg PO TID 10/25/20 08/21/21 Oxybutynin Chloride [Oxybutynin 10 mg PO HS 10/25/20 08/21/21 Chloride ER] Gabapentin 600 mg PO QID 01/15/21 08/21/21 Aspirin EC [Ecotrin Low Dose] 81 mg PO HS 04/28/21 08/21/21 Meclizine [Antivert] 25 mg PO TID PRN 04/28/21 08/21/21 Omeprazole 40 mg PO HS 04/28/21 08/21/21 Ondansetron Odt [Zofran ODT] 8 mg PO DAILY 04/28/21 08/21/21 Rimegepant Sulfate [Nurtec Odt] 75 mg PO DAILY PRN 04/28/21 08/21/21 Desvenlafaxine Succinate [Pristiq] 25 mg PO DAILY 06/26/21 08/21/21 Ergocalciferol [Vitamin D2 (1250 1,250 mcg PO [place] 06/26/21 08/21/21 Mcg = 46448 Iu)] Multivit with Calcium,Iron,Min 1 tab PO DAILY 06/26/21 08/21/21 [Women's Multivitamin] Sodium Chloride [[place]] 1 spr EA NOSTRIL BID 08/21/21 08/21/21 busPIRone HCL 15 mg PO QID 08/21/21 08/21/21 hydrOXYzine pamoate [Vistaril] 50 mg PO TID 08/21/21 08/21/21 Previous Rx's Medication Instructions Recorded Acetaminophen Tab [Tylenol Tab] 500 mg PO Q6H PRN #30 tablet 08/22/21 Simethicone [Gas-X] 125 mg PO AC-TID PRN #20 capsule 08/22/21 Sucralfate [Carafate] 1 gm PO BID #60 tablet 08/22/21 Allergies Allergy/AdvReac Type Severity Reaction Status Date / Time codeine Allergy Anaphylaxis Verified 11/16/21 01:39 peanut Allergy Anaphylaxis Verified 11/16/21 01:39 aspartame AdvReac Diarrhea Verified 11/16/21 01:39 fingolimod [From [employer]] AdvReac Abdominal Verified 11/16/21 01:39 Pain ibuprofen AdvReac Abdominal Verified 11/16/21 01:39 Pain lactose AdvReac Nausea & Verified 11/16/21 01:39 Vomiting & Diarrhea Review of Systems ROS Other: All systems not noted in ROS Statement are negative. <Bruno Rodriguez - Last Filed: 11/16/21 03:06> ROS Other: All systems not noted in ROS Statement are negative. <Ramone Jiménez - Last Filed: 11/16/21 04:04> ROS Statement: Those systems with pertinent positive or pertinent negative responses have been documented in the HPI. 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, Multiple Sclerosis dx November 2018, pt states left leg weak and uses walker ., Bladder retention, frequent flares with panniculitis (worse since weight loss); pt states last 2 weeks since 10/09/20 chest pain and SOB have been increasing, pna History of Any Multi-Drug Resistant Organisms: MRSA Date of last positivie culture/infection: 11/08/17 MDRO Source:: LT INNER THIGH Past Surgical History: Bariatric Surgery, Cholecystectomy, Ear Surgery Additional Past Surgical History / Comment(s): tubes in ears, EGD, laparoscopic kimberly-en-y 02-08-2018 , EGD with dilation Past Anesthesia/Blood Transfusion Reactions: No Reported Reaction Past Psychological History: Anxiety, Depression, PTSD Smoking Status: Never smoker Past Alcohol Use History: None Reported Past Drug Use History: None Reported - Past Family History Mother Family Medical History: Diabetes Mellitus <MichaelBruno - Last Filed: 11/16/21 03:06> General Exam General appearance: alert, in no apparent distress Head exam: Present: atraumatic, normocephalic, normal inspection Eye exam: Present: normal appearance, PERRL, EOMI, nystagmus (Few beats of bilateral, horizontal, nonspecific nystagmus, no evidence of skew deviation or saccade). Absent: scleral icterus, conjunctival injection, periorbital swelling ENT exam: Present: normal exam, normal oropharynx, mucous membranes moist, TM's normal bilaterally, normal external ear exam. Absent: mucous membranes dry Neck exam: Present: normal inspection, full ROM, other (Negative Brudzinski's and Kernig's test). Absent: tenderness, meningismus, lymphadenopathy Respiratory exam: Present: normal lung sounds bilaterally. Absent: respiratory distress, wheezes, rales, rhonchi, stridor Cardiovascular Exam: Present: regular rate, normal rhythm, normal heart sounds. Absent: systolic murmur, diastolic murmur, rubs, gallop, clicks GI/Abdominal exam: Present: soft, normal bowel sounds. Absent: distended, tenderness, guarding, rebound, rigid Extremities exam: Present: normal inspection, full ROM, normal capillary refill. Absent: tenderness, pedal edema, joint swelling, calf tenderness Back exam: Present: normal inspection Neurological exam: Present: alert, oriented X3, CN II-XII intact. Absent: motor sensory deficit Expanded Patient oriented to: Present: person, place, time Speech: Present: fluid speech Cranial nerves: EOM's Intact: Normal, Gag Reflex: Normal, Tongue Deviation: Normal, Nystagmus: Normal, Facial Sensation: Normal, Facial Palsy with Forehead Movement: Normal, Facial Palsy without Forehead Movement: Normal Ataxia: Absent: yes Cerebellar function: Finger to Nose: Normal, Heel to [place]: Normal Upper motor neuron: [place]ell Neglect: Normal, Pronator Drift: Normal, Sensory Extinction: Normal Motor strength exam: RUE: 5, LUE: 5, RLE: 5, LLE: 5 Eye Response: (4) open spontaneously Motor Response: (6) obeys commands Verbal Response: (5) oriented Kyle Total: 15 Psychiatric exam: Present: normal affect, normal mood Skin exam: Present: warm, dry, intact, normal color. Absent: rash <Bruno Rodriguez - Last Filed: 11/16/21 03:06> General appearance: alert, in no apparent distress Head exam: Present: atraumatic, normocephalic, normal inspection Eye exam: Present: normal appearance, PERRL, EOMI. Absent: scleral icterus, conjunctival injection, periorbital swelling ENT exam: Present: normal exam, mucous membranes moist Neck exam: Present: normal inspection. Absent: tenderness, meningismus, lymphadenopathy Respiratory exam: Present: normal lung sounds bilaterally. Absent: respiratory distress, wheezes, rales, rhonchi, stridor Cardiovascular Exam: Present: regular rate, normal rhythm, normal heart sounds. Absent: systolic murmur, diastolic murmur, rubs, gallop, clicks GI/Abdominal exam: Present: soft, normal bowel sounds. Absent: distended, tenderness, guarding, rebound, rigid Extremities exam: Present: normal inspection, full ROM, normal capillary refill. Absent: tenderness, pedal edema, joint swelling, calf tenderness Back exam: Present: normal inspection Neurological exam: Present: alert, oriented X3, CN II-XII intact Psychiatric exam: Present: normal affect, normal mood Skin exam: Present: warm, dry, intact, normal color. Absent: rash <Ramone Jiménez Last Filed: 11/16/21 04:04> Course <Ramone Jiménez Last Filed: 11/16/21 04:04> Vital Signs 11/16/21 11/16/21 11/16/21 01:32 02:59 03:50 Temperature 98.5 F 99.1 F Pulse Rate 89 90 Respiratory 19 16 Rate Blood Pressure 128/97 133/78 O2 Sat by Pulse 98 96 Oximetry - Reevaluation(s) Reevaluation #1: 11/16/21 04:03 Medical record is reviewed (Ramone Jiménez) Reevaluation #2: 11/16/21 04:03 Patient has improved headache (Ramone Jmiénez) Reevaluation #3: 11/16/21 04:03 Patient informed of results questions have been answered (Ramone Jiménez) Medical Decision Making - Lab Data Result diagrams: 11/16/21 02:39 <Bruno Rodriguez - Last Filed: 11/16/21 03:06> - Lab Data Result diagrams: 11/16/21 02:39 11/16/21 02:39 <Ramone Jiménez - Last Filed: 11/16/21 04:04> - Medical Decision Making Patient presents with a persistent posterior headache which is both dull and sharp in nature. Recalcitrant to regular migraine treatments. Additionally patient complaining of intermittent fevers, she states it went up to 102F few days ago. Also complaining of visual disturbance which she ascertains is in both eyes. Describing "double and triple vision. " Will work the patient up for possible neurological disease. Patient does have a history of multiple sclerosis this does raise a suspicion of possible MS flare. However she has no generalized weakness. Patient does not appear to be ill or toxic. I think this is unlikely be infectious in etiology. Although possible viral syndrome with viral cephalgia is within the differential. There was no meningeal signs. Patient will be endorsed to the ED attending physician at 3 AM for further evaluation and disposition. The case was discussed in detail with ED attending physician. Presentation, findings, treatment plan discussed in detail. Dr. Jiménez (Bruno Rodriguez) 26 female in no acute distress. Patient has normal findings here in the ER. Patient at this time is pain control can be discharged home (Ramone Jiménez) - Lab Data Lab Results 11/16/21 11/16/21 11/16/21 Range/Units 02:39 02:39 02:39 WBC 9.3 (3.8-10.6) k/uL RBC 4.46 (3.80-5.40) m/uL Hgb 14.4 (11.4-16.0) gm/dL Hct 42.3 (34.0-46.0) % MCV 94.7 (80.0-100.0) fL MCH 32.4 (25.0-35.0) pg MCHC 34.2 (31.0-37.0) g/dL RDW 12.0 (11.5-15.5) % Plt Count 288 (150-450) k/uL MPV 9.3 Neutrophils % 77 % Lymphocytes % 16 % Monocytes % 4 % Eosinophils % 2 % Basophils % 0 % Neutrophils # 7.1 (1.3-7.7) k/uL Lymphocytes # 1.5 (1.0-4.8) k/uL Monocytes # 0.4 (0-1.0) k/uL Eosinophils # 0.2 (0-0.7) k/uL Basophils # 0.0 (0-0.2) k/uL ESR 4 (0-20) mm/hr Sodium 137 (137-145) mmol/L Potassium 5.3 H (3.5-5.1) mmol/L Chloride 109 H (98-107) mmol/L Carbon Dioxide 20 L (22-30) mmol/L Anion Gap 8 mmol/L BUN 9 (7-17) mg/dL Creatinine 0.62 (0.52-1.04) mg/dL Est GFR (CKD-EPI)AfAm >90 (>60 ml/min/1.73 sqM) Est GFR (CKD-EPI)NonAf >90 (>60 ml/min/1.73 sqM) Glucose 103 H (74-99) mg/dL Calcium 9.2 (8.4-10.2) mg/dL Total Bilirubin 0.6 (0.2-1.3) mg/dL AST 41 H (14-36) U/L ALT 28 (4-34) U/L Alkaline Phosphatase 80 (38-126) U/L Total Protein 6.7 (6.3-8.2) g/dL Albumin 4.4 (3.5-5.0) g/dL TSH 0.907 (0.465-4.680) mIU/L Urine Color Yellow Urine Appearance Clear (Clear) Urine pH 8.0 (5.0-8.0) Ur Specific [place] 1.022 (1.001-1.035) Urine Protein Negative (Negative) Urine Glucose (UA) Negative (Negative) Urine Ketones Negative (Negative) Urine Blood Negative (Negative) Urine Nitrite Negative (Negative) Urine Bilirubin Negative (Negative) Urine Urobilinogen <2.0 (<2.0) mg/dL Ur Leukocyte Esterase Negative (Negative) Urine HCG, Qual (Not Detectd) Urine Opiates Screen Detected H (NotDetected) Ur Oxycodone Screen Not Detected (NotDetected) Urine Methadone Screen Not Detected (NotDetected) Ur Propoxyphene Screen Not Detected (NotDetected) Ur Barbiturates Screen Not Detected (NotDetected) U Tricyclic Antidepress Not Detected (NotDetected) Ur Phencyclidine Scrn Not Detected (NotDetected) Ur Amphetamines Screen Not Detected (NotDetected) U Methamphetamines Scrn Detected H (NotDetected) U Benzodiazepines Scrn Not Detected (NotDetected) Urine Cocaine Screen Not Detected (NotDetected) U Marijuana (THC) Screen Not Detected (NotDetected) Coronavirus (PCR) (Not Detectd) 11/16/21 11/16/21 Range/Units 02:39 02:39 WBC (3.8-10.6) k/uL RBC (3.80-5.40) m/uL Hgb (11.4-16.0) gm/dL Hct (34.0-46.0) % MCV (80.0-100.0) fL MCH (25.0-35.0) pg MCHC (31.0-37.0) g/dL RDW (11.5-15.5) % Plt Count (150-450) k/uL MPV Neutrophils % % Lymphocytes % % Monocytes % % Eosinophils % % Basophils % % Neutrophils # (1.3-7.7) k/uL Lymphocytes # (1.0-4.8) k/uL Monocytes # (0-1.0) k/uL Eosinophils # (0-0.7) k/uL Basophils # (0-0.2) k/uL ESR (0-20) mm/hr Sodium (137-145) mmol/L Potassium (3.5-5.1) mmol/L Chloride (98-107) mmol/L Carbon Dioxide (22-30) mmol/L Anion Gap mmol/L BUN (7-17) mg/dL Creatinine (0.52-1.04) mg/dL Est GFR (CKD-EPI)AfAm (>60 ml/min/1.73 sqM) Est GFR (CKD-EPI)NonAf (>60 ml/min/1.73 sqM) Glucose (74-99) mg/dL Calcium (8.4-10.2) mg/dL Total Bilirubin (0.2-1.3) mg/dL AST (14-36) U/L ALT (4-34) U/L Alkaline Phosphatase (38-126) U/L Total Protein (6.3-8.2) g/dL Albumin (3.5-5.0) g/dL TSH (0.465-4.680) mIU/L Urine Color Urine Appearance (Clear) Urine pH (5.0-8.0) Ur Specific [place] (1.001-1.035) Urine Protein (Negative) Urine Glucose (UA) (Negative) Urine Ketones (Negative) Urine Blood (Negative) Urine Nitrite (Negative) Urine Bilirubin (Negative) Urine Urobilinogen (<2.0) mg/dL Ur Leukocyte Esterase (Negative) Urine HCG, Qual Not Detected (Not Detectd) Urine Opiates Screen (NotDetected) Ur Oxycodone Screen (NotDetected) Urine Methadone Screen (NotDetected) Ur Propoxyphene Screen (NotDetected) Ur Barbiturates Screen (NotDetected) U Tricyclic Antidepress (NotDetected) Ur Phencyclidine Scrn (NotDetected) Ur Amphetamines Screen (NotDetected) U Methamphetamines Scrn (NotDetected) U Benzodiazepines Scrn (NotDetected) Urine Cocaine Screen (NotDetected) U Marijuana (THC) Screen (NotDetected) Coronavirus (PCR) Not Detected (Not Detectd) Disposition <Bruno Rodriguez - Last Filed: 11/16/21 03:06> Is patient prescribed a controlled substance at d/c from ED?: No <Ramone Jiménez - Last Filed: 11/16/21 04:04> Clinical Impression: Headache, Anxiety, Chronic pain, Weakness Disposition: HOME SELF-CARE Condition: Good Instructions (If sedation given, give patient instructions): Acute Headache (ED) Referrals: Parminder Torres DO [Primary Care Provider] - 1-2 days
[2021-11-16 02:59] LABS: Basophils % (A) 0 %; Eosinophils # (A) 0.2 k/uL (0-0.7); Eosinophils % (A) 2 %; HCT 42.3 % (34.0-46.0); HGB 14.4 gm/dL (11.4-16.0); Lymphocytes # (A) 1.5 k/uL (1.0-4.8); Lymphocytes % (A) 16 %; MCH 32.4 pg (25.0-35.0); MCHC 34.2 g/dL (31.0-37.0); MCV 94.7 fL (80.0-100.0); Mean Platelet Volume 9.3; Monocytes # (A) 0.4 k/uL (0-1.0); Monocytes % (A) 4 %; Neutrophils # (A) 7.1 k/uL (1.3-7.7); Neutrophils % (A) 77 %; Platelet Count 288 k/uL (150-450); RBC 4.46 m/uL (3.80-5.40); WBC 9.3 k/uL (3.8-10.6)
[2021-11-16 03:12] LABS: ALT 28 U/L (4-34); African American GFR (CKD) >90 (>60 ml/min/1.73 sqM); Anion Gap 8 mmol/L; Blood Urea Nitrogen 9 mg/dL (7-17); Calcium 9.2 mg/dL (8.4-10.2); Carbon Dioxide 20 mmol/L (22-30); Chloride 109 mmol/L (98-107); Glucose 103 mg/dL (74-99); Non-African American GFR(CKD) >90 (>60 ml/min/1.73 sqM); Sodium 137 mmol/L (137-145); Total Bilirubin 0.6 mg/dL (0.2-1.3)
[2021-11-16] MEDS ORDERED: HYDROmorphone 1 MG/ML 1 ML SYRINGE IVP STA (03:15)
--- NOTE | 2021-11-16 03:19 | XR ---
EXAM: XR Chest, 1 View CLINICAL HISTORY: ITS.REASON XR Reason: Fever TECHNIQUE: Frontal view of the chest. COMPARISON: 07/13/2021. FINDINGS: Lungs: No consolidative changes. Pleural space: No pleural effusions. No pneumothorax. Heart: Unremarkable. No cardiomegaly. Mediastinum: Cardiomediastinal silhouette unremarkable. Bones/joints: Gentle dextroscoliosis of the thoracic spine. Soft tissues: Soft tissues are unremarkable. Upper abdomen: There is mild elevation of the right hemidiaphragm. IMPRESSION: 1. Mild elevation of the right hemidiaphragm. 2. No active disease, unchanged from the previous study.
[2021-11-16 03:28] LABS: Appearance,Urine Clear (Clear); Bilirubin,Urine Negative (Negative); Blood,Urine Negative (Negative); Color,Urine Yellow; Glucose,Urine (UA) Negative (Negative); Ketones,Urine Negative (Negative); Leukocyte Esterase,Urine Negative (Negative); Nitrite,Urine Negative (Negative); Protein,Urine Negative (Negative); Specific Gravity,Urine 1.022 (1.001-1.035); Urobilinogen,Urine <2.0 mg/dL (<2.0)
[2021-11-16 03:49] LABS: AST 41 U/L (14-36); Albumin 4.4 g/dL (3.5-5.0); Alkaline Phosphatase 80 U/L (38-126); Potassium 5.3 mmol/L (3.5-5.1); Total Protein 6.7 g/dL (6.3-8.2)
[2021-11-16 03:50] LABS: Amphetamine Screen,Urine Not Detected (NotDetected); Barbiturate Screen,Urine Not Detected (NotDetected); Benzodiazepines Screen,Urine Not Detected (NotDetected); Cocaine Screen,Urine Not Detected (NotDetected); Methadone Screen, Urine Not Detected (NotDetected); Opiate Screen,Urine Detected (NotDetected); Oxycodone Screen, Urine Not Detected (NotDetected); Phencyclidine Screen,Urine Not Detected (NotDetected); Tricyclic Antidepressant,Urine Not Detected (NotDetected); Urn Cannabinoid Scrn Not Detected (NotDetected)
[2021-11-16 03:51] VITALS: RESP 16
[2021-11-16 03:56] LABS: Erythrocyte Sedimentation Rate 4 mm/hr (0-20)
[2021-11-16 05:14] VITALS: BP 112/68; PULSE 80; TEMP 98.9
--- NOTE | 2021-11-16 05:54 | CT ---
EXAMINATION TYPE: CT brain wo con DATE OF EXAM: 11/16/2021 COMPARISON: CT brain September 25, 2021 HISTORY: Dizziness and headache. CT DLP: 1050 mGycm. Automated Exposure Control for Dose Reduction was Utilized. TECHNIQUE: CT scan of the head is performed without contrast. FINDINGS: There is no acute intracranial hemorrhage, mass effect, or midline shift identified. The ventricles and sulci remain within normal limits in size. [place]-white matter differentiation is maint ained. The globes are intact and the visualized sinuses are clear. No suspicious opacification of mas toid air cells. Nasal septum slightly deviated to right of midline. IMPRESSION: Unremarkable study. No significant change from prior.
== END 2021-11-16 04:50 | disposition home or self-care (01) ==
LOC: EC 01:26
DX: R51.9 Headache, unspecified (principal); F41.9 Anxiety disorder, unspecified; G89.29 Other chronic pain; R53.1 Weakness; J45.909 Unspecified asthma, uncomplicated; Z88.5 Allergy status to narcotic agent; Z91.010 Allergy to peanuts; Z88.8 Allergy status to other drugs, medicaments and biological substances; Z88.6 Allergy status to analgesic agent; Z91.011 Allergy to milk products; Z20.822 Contact with and (suspected) exposure to COVID-19; Z79.82 Long term (current) use of aspirin
CPT/HCPCS: 36415; 80053; 85652; 84443; 85025; 81003; 81025; 80306; 87635; 71045; 70450; 99285; 96374; 96375; 96361; J2270; J1200; J2765; J1170; J1790

== ENCOUNTER 2021-11-27 22:02 | Emergency (ER) | payer OTHER ==
[2021-11-27 22:09] VITALS: RESP 16; TEMP 98.4
--- NOTE | 2021-11-27 22:26 | ED ---
Chest Pain HPI - General Chief Complaint: Chest Pain Stated Complaint: Chest pain, SOB Time Seen by Provider: 11/27/21 22:11 Source: patient Mode of arrival: wheelchair Limitations: no limitations - History of Present Illness Initial Comments: This patient is 26-year-old woman presenting for evaluation of chest pain that started approximately 24 hours ago now. Pains across the upper chest. No coming symptoms. MD Complaint: chest pain Onset/Timin -: hour(s) Onset: during rest Pain Location: left chest, right chest Pain Radiation: none Severity: moderate Quality: tightness Consistency: constant Improves With: nothing Worsens With: nothing Treatments Prior to Arrival: none - Related Data Home Medications Medication Instructions Recorded Confirmed Zonisamide 100 mg PO BID@1200,2100 04/06/15 11/27/21 Butalb/APAP/Caff 50-325-40Mg 1 tab PO Q6H PRN 10/05/18 11/27/21 [Fioricet 50-325-40] Galcanezumab-Gnlm [Emgality Pen] 120 mg SQ Q30D 03/21/19 11/27/21 ondansetron HCL [Zofran] 8 mg PO TID PRN 03/21/19 11/27/21 Desvenlafaxine [Pristiq ER] 100 mg PO DAILY 07/04/20 11/27/21 HYDROcodone/APAP 10-325MG [[place] 1 tab PO TID PRN 07/04/20 11/27/21 10-325] Montelukast Sodium [Singulair] 10 mg PO HS 07/04/20 11/27/21 Levothyroxine Sodium [Synthroid] 50 mcg PO DAILY 08/04/20 11/27/21 Ocrevus 1 dose IV Q180D 10/15/20 11/27/21 Albuterol Sulfate [Proventil Hfa] 2 puff INHALATION RT-QID PRN 10/25/20 11/27/21 Baclofen [Lioresal] 20 mg PO TID 10/25/20 11/27/21 Oxybutynin Chloride [Oxybutynin 10 mg PO HS 10/25/20 11/27/21 Chloride ER] Gabapentin 600 mg PO QID 01/15/21 11/27/21 Aspirin EC [Ecotrin Low Dose] 81 mg PO HS 04/28/21 11/27/21 Meclizine [Antivert] 25 mg PO TID PRN 04/28/21 11/27/21 Omeprazole 40 mg PO HS 04/28/21 11/27/21 Ondansetron Odt [Zofran ODT] 8 mg PO DAILY 04/28/21 11/27/21 Rimegepant Sulfate [Nurtec Odt] 75 mg PO DAILY PRN 04/28/21 11/27/21 Desvenlafaxine Succinate [Pristiq] 25 mg PO DAILY 06/26/21 11/27/21 Multivit with Calcium,Iron,Min 1 tab PO DAILY 06/26/21 11/27/21 [Women's Multivitamin] busPIRone HCL 15 mg PO QID 08/21/21 11/27/21 hydrOXYzine pamoate [Vistaril] 50 mg PO TID 08/21/21 11/27/21 Previous Rx's Medication Instructions Recorded Sucralfate [Carafate] 1 gm PO BID #60 tablet 08/22/21 Allergies Allergy/AdvReac Type Severity Reaction Status Date / Time codeine Allergy Anaphylaxis Verified 12/04/21 22:07 peanut Allergy Anaphylaxis Verified 12/04/21 22:07 aspartame AdvReac Diarrhea Verified 12/04/21 22:07 fingolimod [From [employer]] AdvReac Abdominal Verified 12/04/21 22:07 Pain ibuprofen AdvReac Abdominal Verified 12/04/21 22:07 Pain lactose AdvReac Nausea & Verified 12/04/21 22:07 Vomiting & Diarrhea Review of Systems ROS Statement: Those systems with pertinent positive or pertinent negative responses have been documented in the HPI. ROS Other: All systems not noted in ROS Statement are negative. Constitutional: Denies: fever Respiratory: Denies: cough, dyspnea Cardiovascular: Reports: as per HPI, chest pain. Denies: palpitations Gastrointestinal: Denies: abdominal pain, nausea, vomiting Genitourinary: Denies: urgency, dysuria, frequency Musculoskeletal: Denies: back pain Skin: Denies: rash Neurological: Denies: headache, weakness, numbness EKG Findings - EKG Results: EKG: interpreted by ERMD, sinus rhythm (Rate 80 bpm), normal axis - Blocks, [place], Hypertrophy, ST Abn: QRS axis and voltage: low voltage (<0.5 MV total QRS and <1.0 MV in each precordial lead) 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, Multiple Sclerosis dx November 2018, pt states left leg weak and uses walker ., Bladder retention, frequent flares with panniculitis (worse since weight loss); pt states last 2 weeks since 10/09/20 chest pain and SOB have been increasing, pna History of Any Multi-Drug Resistant Organisms: MRSA Date of last positivie culture/infection: 11/08/17 MDRO Source:: LT INNER THIGH Past Surgical History: Bariatric Surgery, Cholecystectomy, Ear Surgery Additional Past Surgical History / Comment(s): tubes in ears, EGD, laparoscopic kimberly-en-y 02-08-2018 , EGD with dilation Past Anesthesia/Blood Transfusion Reactions: No Reported Reaction Past Psychological History: Anxiety, Depression, PTSD Smoking Status: Never smoker Past Alcohol Use History: None Reported Past Drug Use History: None Reported - Past Family History Mother Family Medical History: Diabetes Mellitus General Exam Limitations: no limitations General appearance: alert, in no apparent distress Head exam: Present: atraumatic, normocephalic Eye exam: Present: normal appearance. Absent: scleral icterus, conjunctival injection Neck exam: Present: normal inspection Respiratory exam: Present: normal lung sounds bilaterally. Absent: respiratory distress, wheezes, rales, rhonchi, stridor Cardiovascular Exam: Present: regular rate, normal rhythm, normal heart sounds. Absent: systolic murmur, diastolic murmur, rubs, gallop GI/Abdominal exam: Present: soft. Absent: distended, tenderness, guarding, rebound, rigid, mass Extremities exam: Present: normal inspection, normal capillary refill. Absent: pedal edema, calf tenderness Back exam: Present: normal inspection Neurological exam: Present: alert Skin exam: Present: warm, dry, intact, normal color. Absent: rash Course Vital Signs 11/27/21 11/28/21 11/28/21 22:07 01:22 02:00 Temperature 98.4 F Pulse Rate 78 70 70 Respiratory 16 16 16 Rate Blood Pressure 146/79 141/73 140/70 O2 Sat by Pulse 96 96 99 Oximetry Disposition Clinical Impression: Chest pain Disposition: HOME SELF-CARE Condition: Good Instructions (If sedation given, give patient instructions): Chest Pain (ED) Is patient prescribed a controlled substance at d/c from ED?: No Referrals: Parminder Torres DO [Primary Care Provider] - 1-2 days
[2021-11-27 23:14] LABS: Basophils % (A) 0 %; Eosinophils # (A) 0.1 k/uL (0-0.7); Eosinophils % (A) 1 %; HCT 41.4 % (34.0-46.0); HGB 13.5 gm/dL (11.4-16.0); Lymphocytes # (A) 0.6 k/uL (1.0-4.8); Lymphocytes % (A) 9 %; MCH 30.9 pg (25.0-35.0); MCHC 32.5 g/dL (31.0-37.0); MCV 95.1 fL (80.0-100.0); Mean Platelet Volume 9.2; Monocytes # (A) 0.1 k/uL (0-1.0); Monocytes % (A) 2 %; Neutrophils # (A) 5.8 k/uL (1.3-7.7); Neutrophils % (A) 88 %; Platelet Count 260 k/uL (150-450); RBC 4.35 m/uL (3.80-5.40); RDW 11.8 % (11.5-15.5); WBC 6.6 k/uL (3.8-10.6)
--- NOTE | 2021-11-27 23:19 | XR ---
EXAMINATION TYPE: XR chest 2V DATE OF EXAM: 11/27/2021 COMPARISON: 11/16/2021 HISTORY: Chest pain TECHNIQUE: FINDINGS: Heart and mediastinum are normal. Lungs are clear. Diaphragm is normal. Bony thorax is inta ct. There are chest leads. IMPRESSION: Normal chest. No change.
[2021-11-27 23:28] LABS: INR 0.9 (<1.2); Partial Thromboplastin Time 23.2 sec (22.0-30.0); Prothrombin Time 9.8 sec (9.0-12.0)
[2021-11-27 23:37] LABS: ALT 19 U/L (4-34); AST 21 U/L (14-36); African American GFR (CKD) >90 (>60 ml/min/1.73 sqM); Albumin 4.4 g/dL (3.5-5.0); Alkaline Phosphatase 94 U/L (38-126); Anion Gap 9 mmol/L; Blood Urea Nitrogen 14 mg/dL (7-17); Calcium 9.7 mg/dL (8.4-10.2); Carbon Dioxide 18 mmol/L (22-30); Chloride 110 mmol/L (98-107); Glucose 142 mg/dL (74-99); Magnesium 1.9 mg/dL (1.6-2.3); Non-African American GFR(CKD) >90 (>60 ml/min/1.73 sqM); Potassium 4.3 mmol/L (3.5-5.1); Sodium 137 mmol/L (137-145); Total Bilirubin 0.3 mg/dL (0.2-1.3); Total Protein 6.5 g/dL (6.3-8.2)
[2021-11-28] MEDS ORDERED: METOCLOPRAMIDE 5 MG/ML 2 ML VIAL IVP STA (01:04)
[2021-11-28 01:24] VITALS: PULSE 70
[2021-11-28 02:01] VITALS: BP 140/70
== END 2021-11-28 02:01 | disposition home or self-care (01) ==
LOC: EC 22:02
DX: R07.89 Other chest pain (principal); Z91.011 Allergy to milk products; Z88.5 Allergy status to narcotic agent
CPT/HCPCS: 36415; 93005; 85379; 80053; 83735; 84484; 85025; 85610; 85730; 71046; 99285; 96374; J2765

== ENCOUNTER 2021-12-04 22:01 | Emergency (ER) | payer OTHER ==
[2021-12-04 22:07] VITALS: TEMP 98.8
--- NOTE | 2021-12-04 22:36 | XR ---
EXAMINATION TYPE: XR chest 2V DATE OF EXAM: 12/04/2021 COMPARISON: 11/27/2021 HISTORY: Chest pain TECHNIQUE: 2 views FINDINGS: Heart and mediastinum are normal. Lungs are clear. Diaphragm is normal. Bony thorax appears normal. IMPRESSION: Normal chest. No change.
[2021-12-04] MEDS ORDERED: SODIUM CHLORIDE 0.9% 1,000 ML IV STA (22:44)
--- NOTE | 2021-12-04 22:46 | ED ---
Chest Pain HPI - General Chief Complaint: Chest Pain Stated Complaint: Chest pain; syncope Time Seen by Provider: 12/04/21 22:43 Source: patient, family, RN notes reviewed Mode of arrival: wheelchair Limitations: no limitations - History of Present Illness Initial Comments: This is a pleasant 26-year-old female with history of multiple medical issues to include labile blood pressure, recurrent chest pains, previous pulmonary embolism. Patient presents to the emergency department today complaining of intermittent anterior chest wall pain which radiates to the left shoulder and arm for the past 2 days. She states she comes for about 5 minutes at a time, unrelated to activity. Feels like a spasm type pain in her anterior chest. Patient also has some nausea. Denies any abdominal pain. Denies chance of . Patient not on anticoagulation this time. Patient was seen here 7 days ago for similar but less severe symptomology. No headache, no fever or chills, no changes in vision or hearing, no sore throat or difficulty with speech, no neck pain, , no abdominal pain, no vomiting, no changes in urination or bowel movements, no numbness or tingling, , no skin rashes or lesions. Past medical, surgical, social, and family history reviewed. No alleviating or exacerbating factors. - Related Data Home Medications Medication Instructions Recorded Confirmed RX: Zonisamide 100 mg PO BID@1200,2100 04/06/15 11/27/21 RX: Butalb/APAP/Caff 50-325-40Mg 1 tab PO Q6H PRN 10/05/18 11/27/21 [Fioricet 50-325-40] RX: Galcanezumab-Gnlm [Emgality 120 mg SQ Q30D 03/21/19 11/27/21 Pen] RX: ondansetron HCL [Zofran] 8 mg PO TID PRN 03/21/19 11/27/21 RX: Desvenlafaxine [Pristiq ER] 100 mg PO DAILY 07/04/20 11/27/21 RX: HYDROcodone/APAP 10-325MG 1 tab PO TID PRN 07/04/20 11/27/21 [[place] 10-325] RX: Montelukast Sodium [Singulair] 10 mg PO HS 07/04/20 11/27/21 RX: Levothyroxine Sodium 50 mcg PO DAILY 08/04/20 11/27/21 [Synthroid] Ocrevus 1 dose IV Q180D 10/15/20 11/27/21 RX: Albuterol Sulfate [Proventil 2 puff INHALATION RT-QID PRN 10/25/20 11/27/21 Hfa] RX: Baclofen [Lioresal] 20 mg PO TID 10/25/20 11/27/21 RX: Oxybutynin Chloride 10 mg PO HS 10/25/20 11/27/21 [Oxybutynin Chloride ER] RX: Gabapentin 600 mg PO QID 01/15/21 11/27/21 RX: Aspirin EC [Ecotrin Low Dose] 81 mg PO HS 04/28/21 11/27/21 RX: Meclizine [Antivert] 25 mg PO TID PRN 04/28/21 11/27/21 RX: Omeprazole 40 mg PO HS 04/28/21 11/27/21 RX: Ondansetron Odt [Zofran ODT] 8 mg PO DAILY 04/28/21 11/27/21 RX: Rimegepant Sulfate [Nurtec Odt] 75 mg PO DAILY PRN 04/28/21 11/27/21 RX: Desvenlafaxine Succinate 25 mg PO DAILY 06/26/21 11/27/21 [Pristiq] RX: Multivit with Calcium,Iron,Min 1 tab PO DAILY 06/26/21 11/27/21 [Women's Multivitamin] RX: busPIRone HCL 15 mg PO QID 08/21/21 11/27/21 RX: hydrOXYzine pamoate [Vistaril] 50 mg PO TID 08/21/21 11/27/21 Previous Rx's Medication Instructions Recorded Sucralfate [Carafate] 1 gm PO BID #60 tablet 08/22/21 Allergies Allergy/AdvReac Type Severity Reaction Status Date / Time codeine Allergy Anaphylaxis Verified 12/04/21 22:07 peanut Allergy Anaphylaxis Verified 12/04/21 22:07 aspartame AdvReac Diarrhea Verified 12/04/21 22:07 fingolimod [From [employer]] AdvReac Abdominal Verified 12/04/21 22:07 Pain ibuprofen AdvReac Abdominal Verified 12/04/21 22:07 Pain lactose AdvReac Nausea & Verified 12/04/21 22:07 Vomiting & Diarrhea Review of Systems ROS Statement: Those systems with pertinent positive or pertinent negative responses have been documented in the HPI. ROS Other: All systems not noted in ROS Statement are negative. EKG Findings - EKG Comments: EKG Findings:: EKG shows sinus rhythm with a rate of 86, nonspecific T-wave abnormality noted in precordial leads. Normal intervals. No evidence for ST elevation. Baseline artifact noted. When compared to the previous study from November 2019 there is no significant change. EKG was repeated at 0018, no change from the initial EKG. Rate is 75, normal intervals, normal axis, no evidence of acute changes. 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, Multiple Sclerosis dx November 2018, pt states left leg weak and uses walker ., Bladder retention, frequent flares with panniculitis (worse since weight loss); pt states last 2 weeks since 10/09/20 chest pain and SOB have been increasing, pna History of Any Multi-Drug Resistant Organisms: MRSA Date of last positivie culture/infection: 11/08/17 MDRO Source:: LT INNER THIGH Past Surgical History: Bariatric Surgery, Cholecystectomy, Ear Surgery Additional Past Surgical History / Comment(s): tubes in ears, EGD, laparoscopic kimberly-en-y 02-08-2018 , EGD with dilation Past Anesthesia/Blood Transfusion Reactions: No Reported Reaction Past Psychological History: Anxiety, Depression, PTSD Smoking Status: Never smoker Past Alcohol Use History: None Reported Past Drug Use History: None Reported - Past Family History Mother Family Medical History: Diabetes Mellitus General Exam - General Exam Comments Initial Comments: Patient appears anxious, vital signs reviewed, does not appear to be ill or toxic. Left anterior chest wall tenderness to palpation Limitations: no limitations General appearance: alert, anxious, in distress Head exam: Present: atraumatic, normocephalic, normal inspection Eye exam: Present: normal appearance, PERRL, EOMI. Absent: scleral icterus, conjunctival injection, periorbital swelling ENT exam: Present: normal exam, mucous membranes moist Neck exam: Present: normal inspection, full ROM. Absent: tenderness, meningismus, lymphadenopathy Respiratory exam: Present: normal lung sounds bilaterally, chest wall tenderness. Absent: respiratory distress, wheezes, rales, rhonchi, stridor, accessory muscle use, decreased breath sounds, prolonged expiratory Cardiovascular Exam: Present: regular rate, normal rhythm, normal heart sounds. Absent: systolic murmur, diastolic murmur, rubs, gallop, clicks GI/Abdominal exam: Present: soft, normal bowel sounds. Absent: distended, tenderness, guarding, rebound, rigid Extremities exam: Present: normal inspection, full ROM, normal capillary refill. Absent: tenderness, pedal edema, joint swelling, calf tenderness Back exam: Present: normal inspection Neurological exam: Present: alert, oriented X3, CN II-XII intact Psychiatric exam: Present: normal affect, normal mood Skin exam: Present: warm, dry, intact, normal color. Absent: rash Course Vital Signs 12/04/21 12/05/21 12/05/21 22:02 00:07 01:00 Temperature 98.8 F Pulse Rate 95 71 75 Respiratory 20 16 16 Rate Blood Pressure 129/91 131/97 149/92 O2 Sat by Pulse 98 100 98 Oximetry 12/05/21 12/05/21 01:30 03:29 Temperature Pulse Rate 75 78 Respiratory 16 16 Rate Blood Pressure 127/73 132/92 O2 Sat by Pulse 97 97 Oximetry - Reevaluation(s) Reevaluation #1: 12/05/21 02:08 Patient reevaluated, patient now complaining of paresthesias in her right side as well as visual disturbance involving her right thigh. Patient states that she previously has had problems on the left side. Patient states that she has a history of multiple sclerosis but this is not a normal flare for her. Patient has no focal weakness. Computed tomography scan ordered. The case was discussed in detail with ED attending physician. Presentation, findings, treatment plan discussed in detail. Also seen and evaluated by the ED attending Reevaluation #2: 12/05/21 03:44 Patient reevaluated prior to discharge. Patient asymptomatic. Computed tomography scan normal. Second troponin normal. Patient's testing essentially normal here in the emergency department. Patient stable for discharge. 12/05/21 03:47 Patient was able to ambulate without difficulty. No evidence of neurological deficit. Chest Pain MDM - MDM Patient septostomy most consistent with chest wall pain. Possibly exacerbated by anxiety. However given the patient's history regarding did do a cardiopulmo nary evaluation. Patient initially given aspirin, morphine, and Zofran. Plan for evaluation This patient was also seen and evaluated by the ED attending physician. Diagnostic testing was normal here in the emergency department. We'll have the patient follow-up with her neurologist, Dr. Delgado as well as her primary care physician. Patient was told to return to the ER for any signs or symptoms worsen. Told to return immediately if any other problems arise. All questions answered. Treatment plan discussed. Patient in agreement Every effort has been made to ensure accuracy of this dictation. However, due to the limitations of electronic medical records and dictation devices, errors in charting still occur. The case was discussed in detail with ED attending physician. Presentation, findings, treatment plan discussed in detail. Clothing Pattern Preparer Dr. Demarco Disposition Clinical Impression: Chest wall pain, Anxiety, Paresthesias, Visual disturbance Disposition: HOME SELF-CARE Condition: Stable Instructions (If sedation given, give patient instructions): Chest Pain (ED), Paresthesia (ED) Is patient prescribed a controlled substance at d/c from ED?: No Referrals: Parminder Torres DO [Primary Care Provider] - 1-2 days Yasmani Delgado MD [Medical Doctor] - 1-2 days Time of Disposition: 03:25
[2021-12-04] MEDS ORDERED: ONDANSETRON 4 MG/2 ML VIAL IVP STA (22:58)
[2021-12-04] MEDS ORDERED: ASPIRIN 81 MG PO STA (22:58)
[2021-12-04] MEDS ORDERED: MORPHINE SULFATE 4 MG/ML SYRINGE IV STA (22:58)
[2021-12-04 23:29] LABS: Basophils % (A) 0 %; Eosinophils # (A) 0.3 k/uL (0-0.7); Eosinophils % (A) 3 %; HCT 46.8 % (34.0-46.0); HGB 15.5 gm/dL (11.4-16.0); Lymphocytes % (A) 18 %; MCH 31.5 pg (25.0-35.0); MCHC 33.1 g/dL (31.0-37.0); MCV 95.3 fL (80.0-100.0); Mean Platelet Volume 9.1; Monocytes # (A) 0.5 k/uL (0-1.0); Monocytes % (A) 4 %; Neutrophils # (A) 8.1 k/uL (1.3-7.7); Neutrophils % (A) 73 %; Platelet Count 334 k/uL (150-450); RDW 11.9 % (11.5-15.5)
[2021-12-04 23:35] LABS: ALT 17 U/L (4-34); AST 20 U/L (14-36); African American GFR (CKD) >90 (>60 ml/min/1.73 sqM); Albumin 4.9 g/dL (3.5-5.0); Alkaline Phosphatase 100 U/L (38-126); Anion Gap 11 mmol/L; Blood Urea Nitrogen 15 mg/dL (7-17); Calcium 10.2 mg/dL (8.4-10.2); Carbon Dioxide 22 mmol/L (22-30); Chloride 108 mmol/L (98-107); Glucose 91 mg/dL (74-99); Magnesium 1.9 mg/dL (1.6-2.3); Non-African American GFR(CKD) 81 (>60 ml/min/1.73 sqM); Potassium 4.1 mmol/L (3.5-5.1); Sodium 141 mmol/L (137-145); Total Bilirubin 0.3 mg/dL (0.2-1.3); Total Protein 7.3 g/dL (6.3-8.2)
[2021-12-05 00:07] VITALS: RESP 16
[2021-12-05] MEDS ORDERED: diazePAM 5 MG/ML 1 ML VIAL IVP STA (00:23)
--- NOTE | 2021-12-05 02:42 | CT ---
EXAMINATION TYPE: CT brain wo con DATE OF EXAM: 12/05/2021 COMPARISON: 11/16/2021 HISTORY: Chest pain, SOB, Right sided paresthesia, nausea, vomitting. Hx of MS. Prior on PACS. CT DLP: 1143.4 mGycm Automated exposure control for dose reduction was used. Ventricles and sulci appear normal. There is no mass effect or midline shift. No sign of intracranial hemorrhage. Calvarium is intact. No evidence of cerebral edema. There is normal aeration of the mast oid sinuses. Skull base is intact. IMPRESSION: Normal unenhanced head CT scan. No change.
[2021-12-05 04:04] VITALS: BP 121/70; PULSE 76
== END 2021-12-05 04:11 | disposition home or self-care (01) ==
LOC: EC 22:01
DX: R07.89 Other chest pain (principal); F41.9 Anxiety disorder, unspecified; R20.2 Paresthesia of skin; H53.9 Unspecified visual disturbance; J45.909 Unspecified asthma, uncomplicated; Z86.718 Personal history of other venous thrombosis and embolism; F32.A Depression, unspecified; Z88.5 Allergy status to narcotic agent; Z91.010 Allergy to peanuts; Z91.02 Food additives allergy status; Z88.8 Allergy status to other drugs, medicaments and biological substances; Z88.6 Allergy status to analgesic agent; Z91.011 Allergy to milk products; Z79.899 Other long term (current) drug therapy
CPT/HCPCS: 36415 ×2; 93005; 85379; 80053; 83735; 84484 ×2; 85025; 81025; 71046; 70450; 99285; 96374; 96375 ×2; 96361; J2270; J2405; J3360

== ENCOUNTER 2021-12-05 21:26 | Observation (INO) | payer OTHER ==
[2021-12-05] MEDS ORDERED: HYDROmorphone 1 MG/ML 1 ML SYRINGE IM STA (22:08)
--- NOTE | 2021-12-05 22:37 | XR ---
EXAMINATION TYPE: XR chest 1V portable DATE OF EXAM: 12/05/2021 COMPARISON: 12/04/2021 HISTORY: Chest pain TECHNIQUE: FINDINGS: Heart and mediastinum are normal. Lungs are clear. Diaphragm is normal. Bony thorax appears normal. IMPRESSION: Normal chest. No change
--- NOTE | 2021-12-05 23:24 | ED ---
Weakness HPI - General Chief complaint: Recheck/Abnormal Lab/Rx Stated complaint: revisit here 12/05 Time Seen by Provider: 12/05/21 21:39 Source: patient, RN notes reviewed, old records reviewed Mode of arrival: ambulatory Limitations: no limitations - History of Present Illness Initial comments: This is a 26-year-old female to the emergency department for evaluation. Patient's well-known to our hospital for evaluation of multiple complaints. Patient place she's having MS exacerbation with weakness numbness tingling and not feeling well. Presents today for evaluation of chest pain lightheadedness weakness she was here last night for similar complaints. MD Complaint: generalized weakness, numbness, tingling -: hour(s) Location: generalized Severity: mild Severity scale (1-10): 3 Quality: tingling Consistency: intermittent Improves with: none Worsens with: none Context: recent illness, history of similar Associated Symptoms: confusion, nausea/vomiting - Related Data Home Medications Medication Instructions Recorded Confirmed Zonisamide 100 mg PO BID@1200,2100 04/06/15 12/06/21 Butalb/APAP/Caff 50-325-40Mg 1 tab PO Q6H PRN 10/05/18 12/06/21 [Fioricet 50-325-40] Galcanezumab-Gnlm [Emgality Pen] 120 mg SQ Q30D 03/21/19 12/06/21 ondansetron HCL [Zofran] 8 mg PO TID PRN 03/21/19 12/06/21 Desvenlafaxine [Pristiq ER] 100 mg PO DAILY 07/04/20 12/06/21 HYDROcodone/APAP 10-325MG [[place] 1 tab PO TID PRN 07/04/20 12/06/21 10-325] Montelukast Sodium [Singulair] 10 mg PO HS 07/04/20 12/06/21 Levothyroxine Sodium [Synthroid] 50 mcg PO DAILY 08/04/20 12/06/21 Ocrevus 1 dose IV Q180D 10/15/20 12/06/21 Albuterol Sulfate [Proventil Hfa] 2 puff INHALATION RT-QID PRN 10/25/20 12/06/21 Baclofen [Lioresal] 20 mg PO TID 10/25/20 12/06/21 Oxybutynin Chloride [Oxybutynin 10 mg PO HS 10/25/20 12/06/21 Chloride ER] Gabapentin 600 mg PO QID 01/15/21 12/06/21 Aspirin EC [Ecotrin Low Dose] 81 mg PO HS 04/28/21 12/06/21 Meclizine [Antivert] 25 mg PO TID PRN 04/28/21 12/06/21 Omeprazole 40 mg PO HS 04/28/21 12/06/21 Ondansetron Odt [Zofran ODT] 8 mg PO DAILY 04/28/21 12/06/21 Rimegepant Sulfate [Nurtec Odt] 75 mg PO DAILY PRN 04/28/21 12/06/21 Multivit with Calcium,Iron,Min 1 tab PO DAILY 06/26/21 12/06/21 [Women's Multivitamin] hydrOXYzine pamoate [Vistaril] 50 mg PO TID 08/21/21 12/06/21 Previous Rx's Medication Instructions Recorded Sucralfate [Carafate] 1 gm PO BID #60 tablet 08/22/21 busPIRone HCL 10 mg PO BID #0 12/07/21 Allergies Allergy/AdvReac Type Severity Reaction Status Date / Time codeine Allergy Anaphylaxis Verified 12/06/21 07:55 peanut Allergy Anaphylaxis Verified 12/06/21 07:55 aspartame AdvReac Diarrhea Verified 12/06/21 07:55 fingolimod [From [employer]] AdvReac Abdominal Verified 12/06/21 07:55 Pain ibuprofen AdvReac Abdominal Verified 12/06/21 07:55 Pain lactose AdvReac Nausea & Verified 12/06/21 07:55 Vomiting & Diarrhea Review of Systems ROS Statement: Those systems with pertinent positive or pertinent negative responses have been documented in the HPI. ROS Other: All systems not noted in ROS Statement are negative. 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, Multiple Sclerosis dx November 2018, pt states left leg weak and uses walker ., Bladder retention, frequent flares with panniculitis (worse since weight loss); pt states last 2 weeks since 10/09/20 chest pain and SOB have been increasing, pna History of Any Multi-Drug Resistant Organisms: MRSA Date of last positivie culture/infection: 11/08/17 MDRO Source:: LT INNER THIGH Past Surgical History: Bariatric Surgery, Cholecystectomy, Ear Surgery Additional Past Surgical History / Comment(s): tubes in ears, EGD, laparoscopic kimberly-en-y 02-08-2018 , EGD with dilation Past Anesthesia/Blood Transfusion Reactions: No Reported Reaction Past Psychological History: Anxiety, Depression, PTSD Smoking Status: Never smoker Past Alcohol Use History: None Reported Past Drug Use History: None Reported - Past Family History Mother Family Medical History: Diabetes Mellitus Father Family Medical History: Unable to Obtain General Exam Limitations: no limitations Course Vital Signs 12/05/21 12/05/21 12/05/21 21:28 22:20 23:00 Temperature 98.1 F Pulse Rate 99 76 74 Respiratory 16 16 16 Rate Blood Pressure 155/94 124/88 134/82 O2 Sat by Pulse 98 97 99 Oximetry 12/06/21 12/06/21 00:25 01:53 Temperature Pulse Rate 74 75 Respiratory 16 16 Rate Blood Pressure 126/73 136/70 O2 Sat by Pulse 99 99 Oximetry Medical Decision Making - Medical Decision Making 26 female to the ER for evaluation today. Patient. Dense today for evaluation regards to presents today for evaluation of severe weakness found of paresthesia , patient states she can't R is not feeling any better and is to be admitted simply she's having MS exacerbation - Lab Data Result diagrams: 12/06/21 01:23 12/06/21 01:23 Lab Results 12/06/21 12/06/21 12/06/21 Range/Units 01:23 01:23 01:23 WBC 8.8 (3.8-10.6) k/uL RBC 4.28 (3.80-5.40) m/uL Hgb 13.2 (11.4-16.0) gm/dL Hct 40.4 (34.0-46.0) % MCV 94.4 (80.0-100.0) fL MCH 31.0 (25.0-35.0) pg MCHC 32.8 (31.0-37.0) g/dL RDW 11.8 (11.5-15.5) % Plt Count 280 (150-450) k/uL MPV 8.9 Neutrophils % 67 % Lymphocytes % 21 % Monocytes % 6 % Eosinophils % 4 % Basophils % 0 % Neutrophils # 5.9 (1.3-7.7) k/uL Lymphocytes # 1.9 (1.0-4.8) k/uL Monocytes # 0.5 (0-1.0) k/uL Eosinophils # 0.4 (0-0.7) k/uL Basophils # 0.0 (0-0.2) k/uL PT 9.7 (9.0-12.0) sec INR 0.9 (<1.2) APTT 22.8 (22.0-30.0) sec Sodium 138 (137-145) mmol/L Potassium 4.1 (3.5-5.1) mmol/L Chloride 109 H (98-107) mmol/L Carbon Dioxide 22 (22-30) mmol/L Anion Gap 7 mmol/L BUN 16 (7-17) mg/dL Creatinine 0.75 (0.52-1.04) mg/dL Est GFR (CKD-EPI)AfAm >90 (>60 ml/min/1.73 sqM) Est GFR (CKD-EPI)NonAf >90 (>60 ml/min/1.73 sqM) Glucose 94 (74-99) mg/dL Plasma Lactic Acid [place] (0.7-2.0) mmol/L Calcium 9.1 (8.4-10.2) mg/dL Phosphorus 4.1 (2.5-4.5) mg/dL Magnesium 1.8 (1.6-2.3) mg/dL Total Bilirubin 0.3 (0.2-1.3) mg/dL AST 24 (14-36) U/L ALT 17 (4-34) U/L Alkaline Phosphatase 91 (38-126) U/L Troponin I (0.000-0.034) ng/mL NT-Pro-B Natriuret Pep pg/mL Total Protein 6.2 L (6.3-8.2) g/dL Albumin 4.2 (3.5-5.0) g/dL TSH 2.520 (0.465-4.680) mIU/L 12/06/21 12/06/21 12/06/21 Range/Units 01:23 01:23 01:23 WBC (3.8-10.6) k/uL RBC (3.80-5.40) m/uL Hgb (11.4-16.0) gm/dL Hct (34.0-46.0) % MCV (80.0-100.0) fL MCH (25.0-35.0) pg MCHC (31.0-37.0) g/dL RDW (11.5-15.5) % Plt Count (150-450) k/uL MPV Neutrophils % % Lymphocytes % % Monocytes % % Eosinophils % % Basophils % % Neutrophils # (1.3-7.7) k/uL Lymphocytes # (1.0-4.8) k/uL Monocytes # (0-1.0) k/uL Eosinophils # (0-0.7) k/uL Basophils # (0-0.2) k/uL PT (9.0-12.0) sec INR (<1.2) APTT (22.0-30.0) sec Sodium (137-145) mmol/L Potassium (3.5-5.1) mmol/L Chloride (98-107) mmol/L Carbon Dioxide (22-30) mmol/L Anion Gap mmol/L BUN (7-17) mg/dL Creatinine (0.52-1.04) mg/dL Est GFR (CKD-EPI)AfAm (>60 ml/min/1.73 sqM) Est GFR (CKD-EPI)NonAf (>60 ml/min/1.73 sqM) Glucose (74-99) mg/dL Plasma Lactic Acid Tyler 0.8 (0.7-2.0) mmol/L Calcium (8.4-10.2) mg/dL Phosphorus (2.5-4.5) mg/dL Magnesium (1.6-2.3) mg/dL Total Bilirubin (0.2-1.3) mg/dL AST (14-36) U/L ALT (4-34) U/L Alkaline Phosphatase (38-126) U/L Troponin I <0.012 (0.000-0.034) ng/mL NT-Pro-B Natriuret Pep 14 pg/mL Total Protein (6.3-8.2) g/dL Albumin (3.5-5.0) g/dL TSH (0.465-4.680) mIU/L Disposition Clinical Impression: Weakness, Paresthesia Disposition: ADMITTED IP TO THIS HOSP Condition: Stable Is patient prescribed a controlled substance at d/c from ED?: No Time of Disposition: 01:10
--- NOTE | 2021-12-06 00:39 | ED ---
Recheck HPI - General Chief Complaint: Recheck/Abnormal Lab/Rx Stated Complaint: revisit here 12/05 Time Seen by Provider: 12/05/21 21:39 Source: patient Mode of arrival: ambulatory Limitations: no limitations - Related Data Home Medications Medication Instructions Recorded Confirmed Zonisamide 100 mg PO BID@1200,2100 04/06/15 11/27/21 Butalb/APAP/Caff 50-325-40Mg 1 tab PO Q6H PRN 10/05/18 11/27/21 [Fioricet 50-325-40] Galcanezumab-Gnlm [Emgality Pen] 120 mg SQ Q30D 03/21/19 11/27/21 ondansetron HCL [Zofran] 8 mg PO TID PRN 03/21/19 11/27/21 Desvenlafaxine [Pristiq ER] 100 mg PO DAILY 07/04/20 11/27/21 HYDROcodone/APAP 10-325MG [[place] 1 tab PO TID PRN 07/04/20 11/27/21 10-325] Montelukast Sodium [Singulair] 10 mg PO HS 07/04/20 11/27/21 Levothyroxine Sodium [Synthroid] 50 mcg PO DAILY 08/04/20 11/27/21 Ocrevus 1 dose IV Q180D 10/15/20 11/27/21 Albuterol Sulfate [Proventil Hfa] 2 puff INHALATION RT-QID PRN 10/25/20 11/27/21 Baclofen [Lioresal] 20 mg PO TID 10/25/20 11/27/21 Oxybutynin Chloride [Oxybutynin 10 mg PO HS 10/25/20 11/27/21 Chloride ER] Gabapentin 600 mg PO QID 01/15/21 11/27/21 Aspirin EC [Ecotrin Low Dose] 81 mg PO HS 04/28/21 11/27/21 Meclizine [Antivert] 25 mg PO TID PRN 04/28/21 11/27/21 Omeprazole 40 mg PO HS 04/28/21 11/27/21 Ondansetron Odt [Zofran ODT] 8 mg PO DAILY 04/28/21 11/27/21 Rimegepant Sulfate [Nurtec Odt] 75 mg PO DAILY PRN 04/28/21 11/27/21 Desvenlafaxine Succinate [Pristiq] 25 mg PO DAILY 06/26/21 11/27/21 Multivit with Calcium,Iron,Min 1 tab PO DAILY 06/26/21 11/27/21 [Women's Multivitamin] busPIRone HCL 15 mg PO QID 08/21/21 11/27/21 hydrOXYzine pamoate [Vistaril] 50 mg PO TID 08/21/21 11/27/21 Previous Rx's Medication Instructions Recorded Sucralfate [Carafate] 1 gm PO BID #60 tablet 08/22/21 Allergies Allergy/AdvReac Type Severity Reaction Status Date / Time codeine Allergy Anaphylaxis Verified 12/05/21 21:31 peanut Allergy Anaphylaxis Verified 12/05/21 21:31 aspartame AdvReac Diarrhea Verified 12/05/21 21:31 fingolimod [From [employer]] AdvReac Abdominal Verified 12/05/21 21:31 Pain ibuprofen AdvReac Abdominal Verified 12/05/21 21:31 Pain lactose AdvReac Nausea & Verified 12/05/21 21:31 Vomiting & Diarrhea Review of Systems ROS Statement: Those systems with pertinent positive or pertinent negative responses have been documented in the HPI. ROS Other: All systems not noted in ROS Statement are negative. 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, Multiple Sclerosis dx November 2018, pt states left leg weak and uses walker ., Bladder retention, frequent flares with panniculitis (worse since weight loss); pt states last 2 weeks since 10/09/20 chest pain and SOB have been increasing, pna History of Any Multi-Drug Resistant Organisms: MRSA Date of last positivie culture/infection: 11/08/17 MDRO Source:: LT INNER THIGH Past Surgical History: Bariatric Surgery, Cholecystectomy, Ear Surgery Additional Past Surgical History / Comment(s): tubes in ears, EGD, laparoscopic kimberly-en-y 02-08-2018 , EGD with dilation Past Anesthesia/Blood Transfusion Reactions: No Reported Reaction Past Psychological History: Anxiety, Depression, PTSD Smoking Status: Never smoker Past Alcohol Use History: None Reported Past Drug Use History: None Reported - Past Family History Mother Family Medical History: Diabetes Mellitus General Exam Limitations: no limitations Course Vital Signs 12/05/21 12/05/21 12/05/21 21:28 22:20 23:00 Temperature 98.1 F Pulse Rate 99 76 74 Respiratory 16 16 16 Rate Blood Pressure 155/94 124/88 134/82 O2 Sat by Pulse 98 97 99 Oximetry 12/06/21 00:25 Temperature Pulse Rate 74 Respiratory 16 Rate Blood Pressure 126/73 O2 Sat by Pulse 99 Oximetry Disposition Clinical Impression: Weakness, Paresthesia Disposition: ADMITTED IP TO THIS [facility] Condition: Good Instructions (If sedation given, give patient instructions): Paresthesia (ED) Is patient prescribed a controlled substance at d/c from ED?: No Referrals: Parminder Torres DO [Primary Care Provider] - 1-2 days
[2021-12-06] MEDS ORDERED: SODIUM CHLORIDE 0.9% 500 ML 500 ML IV STA (00:45)
[2021-12-06] MEDS ORDERED: SODIUM CHLORIDE 0.9% 1,000 ML IV STA (00:45)
[2021-12-06 01:37] LABS: Basophils % (A) 0 %; Eosinophils # (A) 0.4 k/uL (0-0.7); Eosinophils % (A) 4 %; HCT 40.4 % (34.0-46.0); HGB 13.2 gm/dL (11.4-16.0); Lymphocytes # (A) 1.9 k/uL (1.0-4.8); Lymphocytes % (A) 21 %; MCHC 32.8 g/dL (31.0-37.0); MCV 94.4 fL (80.0-100.0); Mean Platelet Volume 8.9; Monocytes # (A) 0.5 k/uL (0-1.0); Monocytes % (A) 6 %; Neutrophils # (A) 5.9 k/uL (1.3-7.7); Neutrophils % (A) 67 %; Platelet Count 280 k/uL (150-450); RBC 4.28 m/uL (3.80-5.40); RDW 11.8 % (11.5-15.5); WBC 8.8 k/uL (3.8-10.6)
[2021-12-06 01:44] LABS: INR 0.9 (<1.2); Partial Thromboplastin Time 22.8 sec (22.0-30.0); Prothrombin Time 9.7 sec (9.0-12.0)
[2021-12-06 01:47] LABS: ALT 17 U/L (4-34); AST 24 U/L (14-36); African American GFR (CKD) >90 (>60 ml/min/1.73 sqM); Albumin 4.2 g/dL (3.5-5.0); Alkaline Phosphatase 91 U/L (38-126); Anion Gap 7 mmol/L; Blood Urea Nitrogen 16 mg/dL (7-17); Calcium 9.1 mg/dL (8.4-10.2); Carbon Dioxide 22 mmol/L (22-30); Chloride 109 mmol/L (98-107); Glucose 94 mg/dL (74-99); Magnesium 1.8 mg/dL (1.6-2.3); Non-African American GFR(CKD) >90 (>60 ml/min/1.73 sqM); Phosphorus 4.1 mg/dL (2.5-4.5); Potassium 4.1 mmol/L (3.5-5.1); Sodium 138 mmol/L (137-145); Total Bilirubin 0.3 mg/dL (0.2-1.3); Total Protein 6.2 g/dL (6.3-8.2)
[2021-12-06] MEDS ORDERED: NALOXONE 0.4 MG/ML 1 ML VIAL IV PRN (07:23)
--- NOTE | 2021-12-06 07:49 | P.HPIM ---
History of Present Illness H&P Date: 12/06/21 Chief Complaint: Right-sided weakness 26-year-old female with multiple comorbidities Patient comes in with multiple complaints of note she has been to the ED more than 4 times this month with multiple complaints. She reports having right-sided weakness and decreased sensation over her right upper and lower extremity and right side of the face along with episodes of double vision. She reports history of multiple sclerosis with flareups typically presenting with dizziness and lightheadedness however this is different to her but then she notes that last time she had a flareup it was a left sided weakness she follows up with neurology as an outpatient. She denies any falls she reports the symptoms comes and goes. She also reports recurrent episodes of chest pain with palpitations denies any associated shortness of breath of a few sweating denies any nausea vomiting she reports that she visited the ED couple weeks ago for similar problem, she had negative troponins at that time normal EKG and she was discharged home. She doesn't have an echocardiogram done last year in the summer which showed an EF of 45% and initial troponin in the ED was negative EKG no acute ST changes Patient reports history of pulmonary embolism she was on Ellquis for 6 months she is currently off blood thinners She denies any fevers or chills denies any upper respiratory infection symptoms denies any urinary changes or bowel habit changes. She denies any recent traveling. Patient is on multiple medications and asked me to refer to the computer list and could not verify all her meds Review of Systems b Pertinent positives as noted in HPI. 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, Multiple Sclerosis dx November 2018, pt states left leg weak and uses walker ., Bladder retention, frequent flares with panniculitis (worse since weight loss); pt states last 2 weeks since 10/09/20 chest pain and SOB have been increasing, pna History of Any Multi-Drug Resistant Organisms: MRSA Date of last positivie culture/infection: 11/08/17 MDRO Source:: LT INNER THIGH Past Surgical History: Bariatric Surgery, Cholecystectomy, Ear Surgery Additional Past Surgical History / Comment(s): tubes in ears, EGD, laparoscopic kimberly-en-y 02-08-2018 , EGD with dilation Past Anesthesia/Blood Transfusion Reactions: No Reported Reaction Past Psychological History: Anxiety, Depression, PTSD Smoking Status: Never smoker Past Alcohol Use History: None Reported Past Drug Use History: None Reported - Past Family History Mother Family Medical History: Diabetes Mellitus Father Family Medical History: Unable to Obtain Medications and Allergies Home Medications Medication Instructions Recorded Confirmed Type Zonisamide 100 mg PO BID@1200,2100 04/06/15 11/27/21 History Butalb/APAP/Caff 50-325-40Mg 1 tab PO Q6H PRN 10/05/18 11/27/21 History [Fioricet 50-325-40] Galcanezumab-Gnlm [Emgality Pen] 120 mg SQ Q30D 03/21/19 11/27/21 History ondansetron HCL [Zofran] 8 mg PO TID PRN 03/21/19 11/27/21 History Desvenlafaxine [Pristiq ER] 100 mg PO DAILY 07/04/20 11/27/21 History HYDROcodone/APAP 10-325MG [[place] 1 tab PO TID PRN 07/04/20 11/27/21 History 10-325] Montelukast Sodium [Singulair] 10 mg PO HS 07/04/20 11/27/21 History Levothyroxine Sodium [Synthroid] 50 mcg PO DAILY 08/04/20 11/27/21 History Ocrevus 1 dose IV Q180D 10/15/20 11/27/21 History Albuterol Sulfate [Proventil Hfa] 2 puff INHALATION RT-QID PRN 10/25/20 11/27/21 History Baclofen [Lioresal] 20 mg PO TID 10/25/20 11/27/21 History Oxybutynin Chloride [Oxybutynin 10 mg PO HS 10/25/20 11/27/21 History Chloride ER] Gabapentin 600 mg PO QID 01/15/21 11/27/21 History Aspirin EC [Ecotrin Low Dose] 81 mg PO HS 04/28/21 11/27/21 History Meclizine [Antivert] 25 mg PO TID PRN 04/28/21 11/27/21 History Omeprazole 40 mg PO HS 04/28/21 11/27/21 History Ondansetron Odt [Zofran ODT] 8 mg PO DAILY 04/28/21 11/27/21 History Rimegepant Sulfate [Nurtec Odt] 75 mg PO DAILY PRN 04/28/21 11/27/21 History Desvenlafaxine Succinate [Pristiq] 25 mg PO DAILY 06/26/21 11/27/21 History Multivit with Calcium,Iron,Min 1 tab PO DAILY 06/26/21 11/27/21 History [Women's Multivitamin] busPIRone HCL 15 mg PO QID 08/21/21 11/27/21 History hydrOXYzine pamoate [Vistaril] 50 mg PO TID 08/21/21 11/27/21 History Sucralfate [Carafate] 1 gm PO BID #60 tablet 08/22/21 Rx Allergies Allergy/AdvReac Type Severity Reaction Status Date / Time codeine Allergy Anaphylaxis Verified 12/05/21 21:31 peanut Allergy Anaphylaxis Verified 12/05/21 21:31 aspartame AdvReac Diarrhea Verified 12/05/21 21:31 fingolimod [From [employer]] AdvReac Abdominal Verified 12/05/21 21:31 Pain ibuprofen AdvReac Abdominal Verified 12/05/21 21:31 Pain lactose AdvReac Nausea & Verified 12/05/21 21:31 Vomiting & Diarrhea Physical Exam Vitals: Vital Signs Temp Pulse Resp BP Pulse Ox 12/06/21 01:53 75 16 136/70 99 12/06/21 00:25 74 16 126/73 99 12/05/21 23:00 74 16 134/82 99 12/05/21 22:20 76 16 124/88 97 12/05/21 21:28 98.1 F 99 16 155/94 98 Intake and Output 12/05/21 12/05/21 12/06/21 14:59 22:59 06:59 Other: Weight 163.293 kg Results CBC & Chem 7: 12/06/21 01:23 12/06/21 01:23 Labs: Abnormal Lab Results - Last 24 Hours (Table) 12/06/21 Range/Units 01:23 Chloride 109 H (98-107) mmol/L Total Protein 6.2 L (6.3-8.2) g/dL Assessment and Plan Assessment: Right-sided weakness rule out MS exacerbation Neurochecks Fall precautions brain CAT scan with no contrast neurology consult physical exam findings were inconsistent with observation finding during the interview Psych eval Recurrent chest pains with palpitations History of cardiomyopathy echocardiogram with ejection fraction of 45% back in October 2020 Repeat echocardiogram Initial troponin negative repeat troponin Continue aspirin Cardiology consult Morbid obesity History of esophageal strictures status post dilation Recent history of PE currently off blood thinners after 6 months of treatment Full code DVT prophylaxis mechanical 26-year-old female with multiple comorbidities, frequent ER visits over the past month with similar complaints of weakness and chest pain recurrent. Will await cardiology and neurology evaluation for further recommendations. We'll check echocardiogram due to history of cardiomyopathy, continue with cardiac monitoring. Check CT of the brain without contrast
--- NOTE | 2021-12-06 08:48 | CT ---
EXAMINATION TYPE: CT brain wo con DATE OF EXAM: 12/06/2021 COMPARISON: 12/05/2021 HISTORY: 26-year-old female Right sided weakness. TECHNIQUE: Examination was done in axial plane without intravenous contrast. Coronal and sagittal r econstructions performed. CT DLP: 1108.4 mGycm Automated exposure control for dose reduction was used. FINDINGS: There is no evidence of acute intracranial hemorrhage, acute ischemic changes, mass, mass-effect, or extra-axial fluid collection. There is no effacement of cerebral sulci or basal subarachnoid cister ns. There is no hydrocephalus. There is no midline shift. [place]-white matter distinction is preserv ed. Partially empty sella redemonstrated. Hypoplastic right sphenoid sinus. Otherwise, paranasal sinuses and mastoid air cells are pneumatized. IMPRESSION: Stable exam; no acute intracranial abnormality seen.
--- NOTE | 2021-12-06 09:33 | P.CRDCN ---
History of Present Illness Consult date: 12/06/21 History of present illness: HISTORY OF PRESENT ILLNESS: This is a 26-year-old female with a past medical history significant for asthma, esophageal strictures requiring dilation, gastric bypass, multiple sclerosis causing memory issues and left-sided weakness and pulmonary embolism. Patient follows in the office with Dr. Lees. We have been asked to see the patient in consultation for recurrent chest pain and paresthesias. Patient examined at the bedside. Patient presented to the hospital with complaints of right-sided weakness. She states she usually has weakness on the left side of her body but this time it was on the right side of her body. Apparently the patient was having some chest pain a couple days ago, however she currently denies any chest pain or pressure. She currently denies shortness of breath. Neurology has been consulted for evaluation. Vital signs are stable. * EKG reveals sinus mechanism with juvenile T wave inversions V1-V3, unchanged from previous EKG * Chest xray negative for acute process * Laboratory data: WBC 8.8. Hemoglobin 13.2. Platelet count 280. Sodium 138. Potassium 4.1. BUN 16. Creatinine 0.75. Troponin negative 1. TSH 2.5-0. * Current home cardiac medications include aspirin 81 mg daily * Patient underwent dobutamine stress test in October 2020 which was negative for ischemia * Most recent echocardiogram performed in 2020 revealed mildly reduced ejection fraction of 45% with possible inferior hypokinesis and RV enlargement * Patient underwent cardiac MRI in May 2021 revealing left ventricle normal in size. Left ventricular systolic function normal. Ejection fraction 63%. Normal wall motion and thickening. Normal wall thickness. REVIEW OF SYSTEMS: At the time of my exam: CONSTITUTIONAL: Denies fever or chills. HEENT: Denies blurred vision, vision changes, or eye pain. Denies hemoptysis CARDIOVASCULAR: Denies chest pain. Denies orthopnea. Denies PND. Denies palpitations RESPIRATORY: Denies shortness of breath. GASTROINTESTINAL: Denies abdominal pain. Denies nausea or vomiting. HEMATOLOGIC: Denies bleeding disorders. GENITOURINARY: Denies any blood in urine. SKIN: Denies pruitis. Denies rash. PHYSICAL EXAM: VITAL SIGNS: Reviewed. GENERAL: Well-developed in no acute distress. HEENT: Head is normocephalic. Pupils are equal, round. Sclerae anicteric. Mucous membranes of the mouth are moist. Neck supple. No JVD or thyromegaly LUNGS: Respirations even and unlabored. Lungs essentially clear to auscultation bilaterally. HEART: Regular rate and rhythm. S1 and S2 heard. ABDOMEN: Soft. Nondistended. Nontender. EXTREMITIES: Normal range of motion. No clubbing or cyanosis. Peripheral pulses intact. No lower extremity edema NEUROLOGIC: Awake and alert. Oriented x 3. ASSESSMENT: Chest pain, ACS ruled out Right sided weakness Chronic left sided weakness History of PE, no longer on anticoagulation History of multiple sclerosis History of esophageal stricture with previous dilation Asthma Morbid obesity with previous gastric bypass surgery PLAN: An acute coronary event has been ruled out No acute cardiac issues present at this time Neurology consulted. Await evaluation. We will sign off. Please reconsult if needed Patient to follow up outpatient with Dr. Lees Nurse practitioner note has been reviewed by physician. Signing provider agrees with the documented findings, assessment, and plan of care. 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, Multiple Sclerosis dx November 2018, pt states left leg weak and uses walker ., Bladder retention, f requent flares with panniculitis (worse since weight loss); pt states last 2 weeks since 10/09/20 chest pain and SOB have been increasing, pna History of Any Multi-Drug Resistant Organisms: MRSA Date of last positivie culture/infection: 11/08/17 MDRO Source:: LT INNER THIGH Past Surgical History: Bariatric Surgery, Cholecystectomy, Ear Surgery Additional Past Surgical History / Comment(s): tubes in ears, EGD, laparoscopic kimberly-en-y 02-08-2018 , EGD with dilation Past Anesthesia/Blood Transfusion Reactions: No Reported Reaction Past Psychological History: Anxiety, Depression, PTSD Smoking Status: Never smoker Past Alcohol Use History: None Reported Past Drug Use History: None Reported - Past Family History Mother Family Medical History: Diabetes Mellitus Father Family Medical History: Unable to Obtain Medications and Allergies Home Medications Medication Instructions Recorded Confirmed Type Zonisamide 100 mg PO BID@1200,2100 04/06/15 12/06/21 History Butalb/APAP/Caff 50-325-40Mg 1 tab PO Q6H PRN 10/05/18 12/06/21 History [Fioricet 50-325-40] Galcanezumab-Gnlm [Emgality Pen] 120 mg SQ Q30D 03/21/19 12/06/21 History ondansetron HCL [Zofran] 8 mg PO TID PRN 03/21/19 12/06/21 History Desvenlafaxine [Pristiq ER] 100 mg PO DAILY 07/04/20 12/06/21 History HYDROcodone/APAP 10-325MG [[place] 1 tab PO TID PRN 07/04/20 12/06/21 History 10-325] Montelukast Sodium [Singulair] 10 mg PO HS 07/04/20 12/06/21 History Levothyroxine Sodium [Synthroid] 50 mcg PO DAILY 08/04/20 12/06/21 History Ocrevus 1 dose IV Q180D 10/15/20 12/06/21 History Albuterol Sulfate [Proventil Hfa] 2 puff INHALATION RT-QID PRN 10/25/20 12/06/21 History Baclofen [Lioresal] 20 mg PO TID 10/25/20 12/06/21 History Oxybutynin Chloride [Oxybutynin 10 mg PO HS 10/25/20 12/06/21 History Chloride ER] Gabapentin 600 mg PO QID 01/15/21 12/06/21 History Aspirin EC [Ecotrin Low Dose] 81 mg PO HS 04/28/21 12/06/21 History Meclizine [Antivert] 25 mg PO TID PRN 04/28/21 12/06/21 History Omeprazole 40 mg PO HS 04/28/21 12/06/21 History Ondansetron Odt [Zofran ODT] 8 mg PO DAILY 04/28/21 12/06/21 History Rimegepant Sulfate [Nurtec Odt] 75 mg PO DAILY PRN 04/28/21 12/06/21 History Desvenlafaxine Succinate [Pristiq] 25 mg PO DAILY 06/26/21 12/06/21 History Multivit with Calcium,Iron,Min 1 tab PO DAILY 06/26/21 12/06/21 History [Women's Multivitamin] busPIRone HCL 15 mg PO QID 08/21/21 12/06/21 History hydrOXYzine pamoate [Vistaril] 50 mg PO TID 08/21/21 12/06/21 History Sucralfate [Carafate] 1 gm PO BID #60 tablet 08/22/21 12/06/21 Rx Allergies Allergy/AdvReac Type Severity Reaction Status Date / Time codeine Allergy Anaphylaxis Verified 12/06/21 07:55 peanut Allergy Anaphylaxis Verified 12/06/21 07:55 aspartame AdvReac Diarrhea Verified 12/06/21 07:55 fingolimod [From [employer]] AdvReac Abdominal Verified 12/06/21 07:55 Pain ibuprofen AdvReac Abdominal Verified 12/06/21 07:55 Pain lactose AdvReac Nausea & Verified 12/06/21 07:55 Vomiting & Diarrhea Physical Exam Vitals: Vital Signs Temp Pulse Pulse Resp BP BP Pulse Ox 12/06/21 07:15 98.6 F 70 18 116/73 97 12/06/21 02:35 98.5 F 66 18 125/79 95 12/06/21 01:53 75 16 136/70 99 12/06/21 00:25 74 16 126/73 99 12/05/21 23:00 74 16 134/82 99 12/05/21 22:20 76 16 124/88 97 12/05/21 21:28 98.1 F 99 16 155/94 98 Intake and Output 12/05/21 12/06/21 12/06/21 22:59 06:59 14:59 Other: Voiding Method Toilet # Voids 1 Weight 163.293 kg 163.293 kg Results 12/06/21 01:23 12/06/21 01:23 Cardiac Enzymes 12/06/21 12/06/21 Range/Units 01:23 01:23 AST 24 (14-36) U/L Troponin I <0.012 (0.000-0.034) ng/mL Coagulation 12/06/21 Range/Units 01:23 PT 9.7 (9.0-12.0) sec APTT 22.8 (22.0-30.0) sec CBC 12/06/21 Range/Units 01:23 WBC 8.8 (3.8-10.6) k/uL RBC 4.28 (3.80-5.40) m/uL Hgb 13.2 (11.4-16.0) gm/dL Hct 40.4 (34.0-46.0) % Plt Count 280 (150-450) k/uL Comprehensive Metabolic Panel 12/06/21 Range/Units 01:23 Sodium 138 (137-145) mmol/L Potassium 4.1 (3.5-5.1) mmol/L Chloride 109 H (98-107) mmol/L Carbon Dioxide 22 (22-30) mmol/L BUN 16 (7-17) mg/dL Creatinine 0.75 (0.52-1.04) mg/dL Glucose 94 (74-99) mg/dL Calcium 9.1 (8.4-10.2) mg/dL AST 24 (14-36) U/L ALT 17 (4-34) U/L Alkaline Phosphatase 91 (38-126) U/L Total Protein 6.2 L (6.3-8.2) g/dL Albumin 4.2 (3.5-5.0) g/dL Current Medications Generic Name Dose Route Start Last Admin Trade Name Freq PRN Reason Stop Dose Admin Aspirin 81 mg 12/06/21 21:00 Aspirin 81 Mg PO HS ABDOUL Sodium Chloride 1,000 mls @ 130 mls/hr 12/06/21 00:45 12/06/21 01:29 Saline 0.9% IV 12/06/21 08:26 130 mls/hr .[id number] STA Administration Naloxone HCl 0.2 mg 12/06/21 07:23 Naloxone 0.4 Mg/Ml 1 Ml Vial IV Q2M PRN Opioid Reversal Ondansetron HCl 4 mg 12/06/21 07:23 Ondansetron 4 Mg/2 Ml Vial IVP Q8HR PRN Nausea And Vomiting Intake and Output 12/05/21 12/06/21 12/06/21 22:59 06:59 14:59 Other: Voiding Method Toilet # Voids 1 Weight 163.293 kg 163.293 kg 12/06/21 01:23 12/06/21 01:23
[2021-12-06] MEDS: SODIUM CHLORIDE 0.9% 1,000 ML IV SCH ×2 (09:47→20:20)
[2021-12-06 12:40] LABS: Appearance,Urine Cloudy (Clear); Bilirubin,Urine Negative (Negative); Blood,Urine Small (Negative); Color,Urine Yellow; Glucose,Urine (UA) Negative (Negative); Ketones,Urine Negative (Negative); Leukocyte Esterase,Urine Small (Negative); Nitrite,Urine Negative (Negative); PH, Urine 6.5 (5.0-8.0); Protein,Urine Negative (Negative); RBC,Urine <1 /hpf (0-5); Specific Gravity,Urine 1.019 (1.001-1.035); Squamous Epithelial Cell,Urine 11 /hpf (0-4); Urobilinogen,Urine <2.0 mg/dL (<2.0); WBC,Urine 3 /hpf (0-5)
[2021-12-06] MEDS ORDERED: hydrOXYzine pamoate 25 MG CAP PO PRN (13:19)
--- NOTE | 2021-12-06 13:24 | P.CN ---
Psychiatric Consult - . Consult date: 12/06/21 Consult:: 12/06/21 12:51 IDENTIFYING DATA: This patient is a 26-year-old female who currently lives with her mother and brother in a house,, unmarried, collects [facility]. REASON FOR REFERRAL: Psychiatry was consulted for paresthesias. HISTORY OF PRESENT ILLNESS: The patient presented to the hospital with multiple medical complaints and apparently has been seen in the ER several times recently. Neurology has been consulted and following along. Patient had a computed tomography scan of her head which was negative. Patient was seen today laying in her bed and agreeable to speak to her. She states that she has been having chest pain and other vague neurological signs for the past couple of days. She states that "it's tingling on my right side". She states that she also had a calmly showed blurry vision as well the past couple of days. She states that she has been taking her psychiatric medications and does not report any other side effects from them in the past. She states that she is upset about being in the hospital however once to find out what's going on. She claims that she is not having any depression or anxiety at this time. She states that her sleep is fair appetite is fair. Denying any other complaints . At this time patient denies any suicidal or homical ideations, intent or plan. Patient denies any auditory, visual hallucinations and denies any paranoia or delusions. Patients admits to using no recreational drugs or cigarettes PAST PSYCHIATRIC HISTORY: Patient has a a history of anxiety and depression. Patient is currently on Vistaril, BuSpar, Pristiq. Patient denies any previous psychiatric hospitalizations. She states that she follows up at [facility] for psychiatry. Patient denies any history of suicide attempts in the past. 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 CHEMICAL DEPENDENCY HISTORY: as per HPI. FAMILY PSYCHIATRIC/SUBSTANCE USE HISTORY: He claims that her mother has depression and anxiety. SOCIAL HISTORY: Patient was born and raised in [facility] [place]. She states that she completed college and high school. She states that she worked several jobs in the past. She does not have any kids. Unmarried. She currently lives with her mother and brother. Collects [employer]. MENTAL STATUS EXAM: General Appearance: Patient appears to be obese, stated age is alert, pleasant, and attempts to be cooperative. Patient appears to have fair hygiene and grooming wearing hospital gown with fair eye contact. Behavior: Patient is calmly lying in bed without any agitated behavior. Speech: Patient's speech is fluent and nonpressured. Mood/Affect: Patient reports their mood is "fine", affect is congruent Suicidality/Homicidality: Patient denies having any suicidal or homicidal ideation intent or plan. Perceptions: Patient denies any visual hallucinations and denies any auditory hallucinations Though content/process: There is no evidence of any delusional thought content and thought process is linear and goal-directed. Memory and concentration: AOX3, grossly intact for the purposes of this session. Can spell "WORLD" backwards Judgment and insight: Fair IMPRESSIONS: Depressive disorder unspecified History of anxiety disorder Rule out neurological cause of underlying symptoms/signs PLAN: -At this time patient DOES NOT meet criteria for inpatient psychiatric admission. -Would recommend the following medication changes/additions: Restarted Pristiq ER 100 mg daily, BuSpar 10 mg twice a day for anxiety, Vistaril when necessary for anxiety. -Patient can continue following up at [facility]. -Psychiatry will sign off at this time -Please contact with any questions. 12/06/21 13:20
[2021-12-06] MEDS: ONDANSETRON 4 MG/2 ML VIAL IVP PRN ×2 (13:29→22:59)
[2021-12-06] MEDS: DESVENLAFAXINE SUCCINATE 50 MG TAB.ER.24H PO SCH (14:13)
[2021-12-06] MEDS: busPIRone HCl 10 MG TAB PO SCH ×2 (14:13→20:19)
[2021-12-06] MEDS ORDERED: NON FORMULARY DRUG (Galcanezumab-Gnlm [Emgality Pen] 120 MG/ML Pen.Injctr) SQ SCH (14:30)
[2021-12-06] MEDS ORDERED: MECLIZINE 25 MG TAB PO PRN (14:30)
[2021-12-06] MEDS ORDERED: OCREVUS IV SCH (14:30)
--- NOTE | 2021-12-06 14:46 | P.CNNES ---
History of Present Illness Consult date: 12/06/21 Requesting physician: Ramone Jiménez Reason for Consult: Paresthesias History of Present Illness: Patient is a 26-year-old female with history of multiple sclerosis, follows up with Dr. Butler, currently on Ocrevus, came to the hospital yesterday at 9:28 PM for right-sided paresthesias. Patient states that she came to the hospital 2 days ago, on Thursday for chest pain. While she was in the ER, she developed right-sided paresthesias involving arm and leg. She underwent computed tomography scan of the head, which was normal. Patient was recommended to follow up with a neurologist and was discharged home. Patient states that she spoke to her patent paralegal, who wanted her to go back to the ER, therefore she came to the hospital yesterday at 9:26 PM. Patient is complaining of numbness of the right arm and right leg, also numbness of the right cheek. She feels weird sensation in the right eyelid, as it did not want to stay open. She was concerned about stroke, therefore came to the ER. Patient says that in the past she has lost sensation of the left side about a long time ago, which "kind of came back". Vital signs arrival blood pressure 155/94% 19 and temperature 98.1. Blood test shows normal CBC, PT/PTT, normal CMP. Troponin negative. TSH normal. CT head showed no acute process. Partially empty sella redemonstrated. Chest x-ray is normal. Patient had a normal MRI of brain with and without contrast on 06/14/2016. Patient has history of multiple sclerosis, currently receiving Ocrevus since last 2 years. Patient states that her MS was diagnosed in about 2018 oh 2019. Initially she was placed on Gilenya, but developed significant side effects. Then she was switched to Copaxone. None of these medications worked therefore she was started on Ocrevus 2 years ago. She has done remarkably well with this medication. She was completely dependent on the walker, however since on this medication, she has not touched the walker in months. Patient also tells us that she follows up with a neurologist and is scheduled for MRI of the brain and some other parts of the body on 12/10/2021. Patient says her last dose of Ocrevus was about couple months ago. Review of Systems Patient has some cardiac issues. She has lot of chest pain and has been in and out of the hospital. Also has MS, right-sided numbness. No fever or chills. All other 14 point review of system reviewed and unremarkable. 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, Multiple Sclerosis dx November 2018, pt states left leg weak and uses walker ., Bladder retention, frequent flares with panniculitis (worse since weight loss); pt states last 2 weeks since 10/09/20 chest pain and SOB have been increasing, pna History of Any Multi-Drug Resistant Organisms: MRSA Date of last positivie culture/infection: 11/08/17 MDRO Source:: LT INNER THIGH Past Surgical History: Bariatric Surgery, Cholecystectomy, Ear Surgery Additional Past Surgical History / Comment(s): tubes in ears, EGD, laparoscopic [id number] 02-08-2018 , EGD with dilation Past Anesthesia/Blood Transfusion Reactions: No Reported Reaction Past Psychological History: Anxiety, Depression, PTSD Smoking Status: Never smoker Past Alcohol Use History: None Reported Past Drug Use History: None Reported - Past Family History Mother Family Medical History: Diabetes Mellitus Father Family Medical History: Unable to Obtain Medications and Allergies Home Medications Medication Instructions Recorded Confirmed Type Zonisamide 100 mg PO BID@1200,2100 04/06/15 12/06/21 History Butalb/APAP/Caff 50-325-40Mg 1 tab PO Q6H PRN 10/05/18 12/06/21 History [Fioricet 50-325-40] Galcanezumab-Gnlm [Emgality Pen] 120 mg SQ Q30D 03/21/19 12/06/21 History ondansetron HCL [Zofran] 8 mg PO TID PRN 03/21/19 12/06/21 History Desvenlafaxine [Pristiq ER] 100 mg PO DAILY 07/04/20 12/06/21 History HYDROcodone/APAP 10-325MG [Red Bud 1 tab PO TID PRN 07/04/20 12/06/21 History 10-325] Montelukast Sodium [Singulair] 10 mg PO HS 07/04/20 12/06/21 History Levothyroxine Sodium [Synthroid] 50 mcg PO DAILY 08/04/20 12/06/21 History Ocrevus 1 dose IV Q180D 10/15/20 12/06/21 History Albuterol Sulfate [Proventil Hfa] 2 puff INHALATION RT-QID PRN 10/25/20 12/06/21 History Baclofen [Lioresal] 20 mg PO TID 10/25/20 12/06/21 History Oxybutynin Chloride [Oxybutynin 10 mg PO HS 10/25/20 12/06/21 History Chloride ER] Gabapentin 600 mg PO QID 01/15/21 12/06/21 History Aspirin EC [Ecotrin Low Dose] 81 mg PO HS 04/28/21 12/06/21 History Meclizine [Antivert] 25 mg PO TID PRN 04/28/21 12/06/21 History Omeprazole 40 mg PO HS 04/28/21 12/06/21 History Ondansetron Odt [Zofran ODT] 8 mg PO DAILY 04/28/21 12/06/21 History Rimegepant Sulfate [Nurtec Odt] 75 mg PO DAILY PRN 04/28/21 12/06/21 History Desvenlafaxine Succinate [Pristiq] 25 mg PO DAILY 06/26/21 12/06/21 History Multivit with Calcium,Iron,Min 1 tab PO DAILY 06/26/21 12/06/21 History [Women's Multivitamin] busPIRone HCL 15 mg PO QID 08/21/21 12/06/21 History hydrOXYzine pamoate [Vistaril] 50 mg PO TID 08/21/21 12/06/21 History Sucralfate [Carafate] 1 gm PO BID #60 tablet 08/22/21 12/06/21 Rx Allergies Allergy/AdvReac Type Severity Reaction Status Date / Time codeine Allergy Anaphylaxis Verified 12/06/21 07:55 peanut Allergy Anaphylaxis Verified 12/06/21 07:55 aspartame AdvReac Diarrhea Verified 12/06/21 07:55 fingolimod [From [employer]] AdvReac Abdominal Verified 12/06/21 07:55 Pain ibuprofen AdvReac Abdominal Verified 12/06/21 07:55 Pain lactose AdvReac Nausea & Verified 12/06/21 07:55 Vomiting & Diarrhea Physical Examination - Vital Signs Vital Signs: Vital Signs Temp Pulse Pulse Resp BP BP Pulse Ox 12/06/21 07:15 98.6 F 70 18 116/73 97 12/06/21 02:35 98.5 F 66 18 125/79 95 12/06/21 01:53 75 16 136/70 99 12/06/21 00:25 74 16 126/73 99 12/05/21 23:00 74 16 134/82 99 12/05/21 22:20 76 16 124/88 97 12/05/21 21:28 98.1 F 99 16 155/94 98 Intake and Output 12/05/21 12/06/21 12/06/21 22:59 06:59 14:59 Other: Voiding Method Toilet # Voids 1 Weight 163.293 kg 163.293 kg Patient is a young female, in no acute distress. Patient is alert awake oriented to time place and person. Speech and language functions are normal. Attention, concentration and fund of knowledge is adequate. On cranial examination, pupils are equal, round and reacting to light, visual [place] are full on confrontation, with no neglect on double simultaneous stimulation. Her extraocular muscles are intact with no nystagmus. Face is symmetric, tongue protrudes to the midline. Palatal elevation and sensation normal, hearing and shoulder shrug normal. Her facial sensation is decreased in the right cheek region. On muscle strength testing, there is minimal right pronator drift however the strength is normal in arms and legs distally and proximally. Deep tendon reflexes are symmetric, 2+ at the biceps, 2+ brachioradialis, 2+ knees, ankles 1+ and plantars downgoing bilaterally. Sensory to touch and temperature is decreased in the right arm, right leg and right cheek. Cerebellar function showed no ataxia for [id number]-gl-[id number] testing. No dysdiadochokinesia. Tone and bulk of muscles normal. Gait deferred. On general examination, there is no carotid bruit or murmur, S1-S2 audible. Abdomen is soft nontender. No organomegaly, bowel sounds present. Chest is clear. Peripheral pulses are present. No edema. Results - Laboratory Findings CBC and BMP: 12/06/21 01:23 12/06/21 01:23 Abnormal Lab Findings: Abnormal Labs 12/06/21 01:23 Chloride 109 H Total Protein 6.2 L Assessment and Plan Assessment: * 26-year-old female with history of MS, has presented with 2 days history of right sided numbness including the face arm and leg. Her examination is normal except for numbness on the right side of the body. Rule out MS exacerbation. * Chest pain, follows up with cardiology * Obesity * Anxiety depression Plan: * MRI of the brain with and without contrast, rule out MS exacerbation. * I discussed with patient about starting Solu-Medrol 1 g IVPB daily for 3 days. She wants to hold off on it until MRI has been completed. * Further management based upon above test results. * Neurology will follow. Thank you for the consult.
[2021-12-06] MEDS: hydrOXYzine pamoate 25 MG CAP PO SCH ×2 (15:49→20:21)
[2021-12-06] MEDS: BACLOFEN 10 MG TAB PO SCH ×2 (15:49→20:20)
[2021-12-06] MEDS: HYDROcodone/APAP 10-325MG 1 EACH TAB PO PRN ×2 (15:51→22:59)
[2021-12-06] MEDS: BUTALB/APAP/CAFF 50-325-40MG TAB PO PRN ×2 (16:07→22:59)
--- NOTE | 2021-12-06 17:13 | P.PN ---
Subjective Progress Note Date: 12/06/21 Hospital course: Patient is a 26-year-old female with a past medical history of asthma, esophageal strictures requiring dilation, gastric bypass, DVT, pulmonary emboli (was on anticoagulant Eliquis for 6 months following and has since been discontinued), and recently diagnosed multiple sclerosis which has resulted in memory issues and left-sided weakness. She presented to the emergency department overnight with a chief complaint of right-sided weakness along with decreased sensation/numbness to right upper and lower extremity as well as right lower region of her chin and cheek. She underwent full evaluation in the emergency department. CT had completed negative for acute intercranial process. Chest x-ray completed negative for acute cardiopulmonary process. CBC, coags, and CMP were unremarkable. Troponin was negative at less than 0.012. Urinalysis was contaminated however showing no evidence of infection. TSH normal findings at less than 0.012. Urine hCG negative for . EKG showing normal sinus rhythm with septal T-wave inversion in leads V1 through V3 unchanged from previous EKG completed 12/04/21. Patient was admitted under our services with consultation to cardiology, neurology, and psychiatry. Physical exam: Patient seen and fully evaluated at bedside this morning. Patient reports she continues to have numbness/tingling sensation to right lower jaw, right arm, and right leg. Patient also reports that she feels as though it may be weaker, no weakness noted upon assessment at this time. Patient denies having any headache, lightheadedness, shortness of breath, or any other complaints at this time. She reports resolution of previously reported chest pain and palpitations. Patient awaiting MRI to be completed. Vital signs reviewed and stable. General: Nontoxic, no distress and appears stated age. Morbidly obese Derm: Skin warm and dry, normal coloration for ethnicity. Head: Atraumatic, normocephalic and symmetric. Eyes: EOMs intact, no lid lag, and anicteric sclera Mouth: no lip lesions, mucus membranes moist Cardiovascular: regular rate and rhythm with normal S1S2, no murmur, positive posterior tibial pulses bilaterally, and cap refill < 2 seconds. Lungs: Respirations even, regular, and unlabored on room air. Lungs CTA bilaterally, no rhonchi, no rales, no wheezing, and no accessory muscle usage. Abdominal: Obese abdomen soft, nontender to palpation, no guarding, no appreciable organomegaly Ext: ROM intact. No gross muscle atrophy, no edema, no contractures Neuro: Speech clear, face symmetrical and CN II-XII grossly intact with no noted focal neuro deficits Psych: Alert and oriented to person, place, time, and situation. Appropriate and pleasant affect. Assessment and Plan of Care: Right-sided numbness/paresthesias, rule out MS exacerbation -Neurology following, patient to undergo MRI with and without contrast of brain to rule out MS exacerbation. -Continue neuro check -Fall precautions -CT brain negative -Psychiatry also consulted -Patient requested to hold off on Solu-Medrol for treatment of MS exacerbation pending MRI completion. Recurrent chest pains with palpitations History of cardiomyopathy echocardiogram with ejection fraction of 45% back in October 2020 -Cardiology following, appreciate further recommendations -Telemetry monitoring -Troponins negative -Cardiac diet, NPO at midnight -Continue daily Aspirin -Echocardiogram Morbid obesity History of esophageal strictures status post dilation Recent history of PE currently off blood thinners after 6 months of treatment Chronic pain -Patient may continue home [place] 10/325 mg tablets every 8 hours. Hypothyroidism -TSH normal findings at 2.5-0. -Patient to continue daily medication regimen with levothyroxine. CODE STATUS: Full code DVT prophylaxis: Heparin Discussed with: Patient and RN Anticipated discharge date: Later today versus tomorrow pending MRI completion Anticipated discharge place: Home A total of 38 minutes was spent on the care of this complex patient more than 50% of the time was spent in counseling and care coordination. Objective - Vital Signs Vital signs: Vital Signs Temp 98.6 F 12/06/21 07:15 Pulse 70 12/06/21 07:15 Resp 18 12/06/21 07:15 BP 116/73 12/06/21 07:15 Pulse Ox 97 12/06/21 07:15 FiO2 Intake & Output 12/05/21 12/06/21 12/06/21 18:59 06:59 18:59 Weight 163.293 kg Other: Voiding Method Toilet # Voids 1 - Labs CBC & Chem 7: 12/06/21 01:23 12/06/21 01:23 Labs: Abnormal Lab Results - Last 24 Hours (Table) 12/06/21 Range/Units 01:23 Chloride 109 H (98-107) mmol/L Total Protein 6.2 L (6.3-8.2) g/dL
[2021-12-06] MEDS: GABAPENTIN 300 MG CAP PO SCH ×2 (17:52→20:20)
[2021-12-06] MEDS ORDERED: NON FORMULARY DRUG (Buspirone Hcl [Buspirone Hcl] 15 MG Tablet) PO SCH (18:00)
[2021-12-06] MEDS: methylPREDNISolone SOD SUCCIN 1,000 MG in SODIUM CHLORIDE 0.9% 250 ML IVPB SCH (20:18)
[2021-12-06] MEDS: ZONISAMIDE 100 MG CAP PO SCH (20:19)
[2021-12-06] MEDS: SUCRALFATE 1 GM TAB PO SCH (20:19)
[2021-12-06] MEDS: HEPARIN SODIUM,PORCINE/PF 5,000 UNIT/0.5 ML SYRINGE SQ SCH (20:21)
[2021-12-06] MEDS ORDERED: ASPIRIN 81 MG PO SCH (21:00)
[2021-12-06] MEDS ORDERED: OXYBUTYNIN 10 MG TAB.ER.24 PO SCH (21:00)
[2021-12-06] MEDS ORDERED: PANTOPRAZOLE 40 MG TABLET PO SCH (21:00)
[2021-12-06] MEDS ORDERED: MONTELUKAST 10 MG TAB PO SCH (21:00)
--- NOTE | 2021-12-06 21:56 | MR ---
EXAMINATION TYPE: MR brain wo/w con DATE OF EXAM: 12/06/2021 COMPARISON: 12/06/2021 CT brain. HISTORY: Weakness, right sided numbness, MS. TECHNIQUE: Multiplanar, multisequence images of the brain and brainstem is performed without and with IV contras t, utilizing 15 mL intravenous Gadavist . FINDINGS: Diffusion weighted images demonstrate no evidence of a recent infarct or other diffusion ab normality. There is no extra-axial fluid collection or significant. Scattered white matter changes a re seen throughout the deep white matter that do not definitively appear in the classical perpendicul ar orientation to the ventricles for multiple sclerosis. There is a focus of high FLAIR signal within the body of the corpus callosum best appreciated on series 501 image 156 measuring 5 mm that does no t enhance. None of the white matter changes enhance on postcontrast imaging. The ventricular system and cisternal spaces are normal in size and appearance. The brain volume is a ge appropriate. The craniocervical junction appears within normal limits. Post contrast images demon strate no abnormal enhancement. The dural venous sinuses appear patent. The visualized sinuses are cl ear and the globes are intact. IMPRESSION: 1. No evidence of acute/subacute CVA. 2. No evidence for active multiple sclerosis, scattered deep white matter changes on with corpus ca llosal body lesion all of which do not demonstrate postcontrast enhancement. These are abnormal for [age]-year-old patient and may represent demyelinating process such as multiple sclerosis.
[2021-12-07 03:59] LABS: Urine Alcohol Negative (Negative); Urine Barbiturate Negative (Negative); Urine Cocaine Negative (Negative); Urine Methadone Negative (Negative); Urine Opiates Positive (Negative); Urine Phencyclidine Negative (Negative)
[2021-12-07] MEDS ORDERED: LEVOTHYROXINE 50 MCG TAB PO SCH (06:30)
[2021-12-07 07:19] VITALS: RESP 18
[2021-12-07] MEDS: HEPARIN SODIUM,PORCINE/PF 5,000 UNIT/0.5 ML SYRINGE SQ SCH ×2 (07:30→16:31)
[2021-12-07] MEDS: GABAPENTIN 300 MG CAP PO SCH ×2 (07:30→13:18)
[2021-12-07] MEDS: BACLOFEN 10 MG TAB PO SCH ×2 (07:30→16:33)
[2021-12-07] MEDS: SUCRALFATE 1 GM TAB PO SCH (07:30)
[2021-12-07] MEDS: hydrOXYzine pamoate 25 MG CAP PO SCH (07:31)
[2021-12-07] MEDS: ONDANSETRON 4 MG TAB PO PRN ×2 (07:38→13:18)
[2021-12-07] MEDS: methylPREDNISolone SOD SUCCIN 1,000 MG in SODIUM CHLORIDE 0.9% 250 ML IVPB SCH (07:39)
[2021-12-07] MEDS: BUTALB/APAP/CAFF 50-325-40MG TAB PO PRN ×2 (07:39→13:18)
[2021-12-07] MEDS: busPIRone HCl 10 MG TAB PO SCH (07:40)
[2021-12-07] MEDS: DESVENLAFAXINE SUCCINATE 50 MG TAB.ER.24H PO SCH (07:40)
[2021-12-07] MEDS: HYDROcodone/APAP 10-325MG 1 EACH TAB PO PRN ×2 (07:47→16:33)
--- NOTE | 2021-12-07 07:57 | CA ---
Transthoracic Echo Report Name: Britt Albarran Age: 26 Gender: F : 1995 Exam Date: 12/06/2021 13:53 Exam Location: [facility] Ht (in): 67 Wt (lb): 360 Ordering Physician: Yehuda Lau MD Attending/Referring Phys: [id number], Judi Installer Adri Olivas, JAMI Procedure CPT: Indications: chest pain and palpitations Cardiac Hx: Technical Quality: Fair Contrast 1: Total Dose (mL): Contrast 2: Total Dose (mL): MEASUREMENTS (Male / Female) Normal Values 2D ECHO LV Diastolic Diameter PLAX 4.6 cm 4.2 - 5.9 / 3.9 - 5.3 cm LV Systolic Diameter PLAX 2.9 cm IVS Diastolic Thickness 1.1 cm 0.6 - 1.0 / 0.6 - 0.9 cm LVPW Diastolic Thickness 1.2 cm 0.6 - 1.0 / 0.6 - 0.9 cm LV Relative Wall Thickness 0.5 RV Internal Dim ED PLAX 3.6 cm LA Systolic Diameter LX 3.0 cm 3.0 - 4.0 / 2.7 - 3.8 cm LA Volume 74.6 cm??? 18 - 58 / 22 - 52 cm??? M-MODE Aortic Root Diameter MM 3.1 cm MV E Point Septal Separation 0.3 cm AV Cusp Separation MM 2.4 cm DOPPLER AV Peak Velocity 138.7 cm/s AV Peak Gradient 7.7 mmHg MV Area PHT 2.6 cm??? Mitral E Point Velocity 77.7 cm/s Mitral A Point Velocity 69.1 cm/s Mitral E to A Ratio 1.1 MV Deceleration Time 289.1 ms MV E' Velocity 10.9 cm/s Mitral E to MV E' Ratio 7.1 FINDINGS Left Ventricle Left ventricular ejection fraction is estimated at 55-60 %. Left ventricular cavity size normal. Normal left ventricular thickness Right Ventricle Mild right ventricular dilatation. Unable to estimate the right ventricular systolic pressure. Right Atrium Normal right atrial size. Left Atrium Mild left atrial dilation. Mildly increased left atrial area. No evidence for an atrial septal defect. Mitral Valve Structurally normal mitral valve. No mitral stenosis, regurgitation or prolapse. Aortic Valve Trileaflet aortic valve. No aortic valve stenosis or regurgitation. Tricuspid Valve Structurally normal tricuspid valve. Pulmonic Valve Structurally normal pulmonic valve. Pericardium No pericardial effusion. Aorta Normal size aortic root and proximal ascending aorta. CONCLUSIONS Normal left ventricular ejection fraction 55-60% Normal left ventricular thickness Normal RVSP Mild left atrial dilation No mitral regurgitation No pericardial effusion Previewed by: Dr. Javier Lees DO (Electronically Signed) Final Date: 07 December 2021 07:56
[2021-12-07] MEDS ORDERED: MULTIVITAMINS, THERA 1 EACH TAB PO SCH (09:00)
[2021-12-07] MEDS ORDERED: NON FORMULARY DRUG (Desvenlafaxine [Pristiq Er] 100 MG Tab.Er.24h) PO SCH (09:00)
[2021-12-07] MEDS: SODIUM CHLORIDE 0.9% 1,000 ML IV SCH (11:12)
--- NOTE | 2021-12-07 11:23 | P.DS ---
Providers Date of admission: 12/06/21 01:26 Expected date of discharge: 12/07/21 Attending physician: Yehuda Lau MD Consults: 12/06/21 01:26 Consult Physician Routine Consulting Provider: Leslie Zee Consult Reason/Comments: paresthesia Do you want consulting provider notified?: Yes 12/06/21 01:28 Consult Physician Routine Consulting Provider: Parminder Garcia Consult Reason/Comments: paresthesia Do you want consulting provider notified?: Already Contacted Primary care physician: [facility] Course: Discharge Diagnosis: Right-sided numbness/paresthesias, MS exacerbation ruled out. Patient to follow up outpatient with her neurologist next week as scheduled and patient also scheduled for another MRI on Thursday12/10/21. Recurrent chest pains with palpitations, acute coronary event ruled out History of cardiomyopathy echocardiogram with ejection fraction of 45% back in October 2020, echocardiogram revealing normal preserved EF of 55-60%. Morbid obesity, recommend outpatient weight management program History of esophageal strictures status post dilation Recent history of PE currently off blood thinners after 6 months of treatment Chronic pain. Patient may continue home [place] 10/325 mg tablets every 8 hours. Hypothyroidism. TSH normal findings at 2.520. Patient to continue daily medication regimen with levothyroxine. Anxiety and depression, psychiatry recommended decreasing dose of BuSpar to 10 mg twice daily and decreasing Pristiq to 100 mg daily. Continue to follow-up with [facility] counseling. Hospital Course: Patient is a 26-year-old female with a past medical history of asthma, esophageal strictures requiring dilation, gastric bypass, DVT, pulmonary emboli (was on anticoagulant Eliquis for 6 months following and has since been discontinued), and recently diagnosed multiple sclerosis which has resulted in memory issues and left-sided weakness. She presented to the emergency department overnight with a chief complaint of right-sided weakness along with decreased sensation/numbness to right upper and lower extremity as well as right lower region of her chin and cheek. She underwent full evaluation in the emergency department. CT had completed negative for acute intercranial process. Chest x-ray completed negative for acute cardiopulmonary process. CBC, coags, and CMP were unremarkable. Troponin was negative at less than 0.012. Urinalysis was contaminated however showing no evidence of infection. TSH normal findings at less than 0.012. Urine hCG negative for . EKG showing normal sinus rhythm with septal T-wave inversion in leads V1 through V3 unchanged from previous EKG completed 12/04/21. Patient was admitted under our services with consultation to cardiology, neurology, and psychiatry. Echocardiogram was completed revealing normal EF 55-60%. MRI brain also completed showing no evidence of acute/subacute CVA and no evidence for active multiple sclerosis, there were findings of scattered deep white matter changes on the corpus callosum body abnormal for 26-year-old and may represent demyelinating process such as multiple sclerosis however it appears these findings do not definitively appear in the classical perpendicular orientation to the ventricles such as multiple sclerosis. Patient received 2 doses of Solu- Medrol 1 g each. Neurology clearing patient for follow-up with her neurologist Dr. Butler as scheduled next week, patient also scheduled to undergo another MRI on Thursday12/10/21. Patient is medically stable for discharge at this time. As discussed patient to follow up outpatient with PCP and neurology. Physical exam: Vital signs reviewed and stable. General: Nontoxic, no distress and appears stated age. Morbidly obese Derm: Skin warm and dry, normal coloration for ethnicity. Head: Atraumatic, normocephalic and symmetric. Eyes: EOMs intact, no lid lag, and anicteric sclera Mouth: no lip lesions, mucus membranes moist Cardiovascular: regular rate and rhythm with normal S1S2, no murmur, positive posterior tibial pulses bilaterally, and cap refill < 2 seconds. Lungs: Respirations even, regular, and unlabored on room air. Lungs CTA bilaterally, no rhonchi, no rales, no wheezing, and no accessory muscle usage. Abdominal: Obese abdomen soft, nontender to palpation, no guarding, no appreciable organomegaly Ext: ROM intact. No gross muscle atrophy, no edema, no contractures Neuro: Speech clear, face symmetrical and CN II-XII grossly intact with no noted focal neuro deficits Psych: Alert and oriented to person, place, time, and situation. Appropriate and pleasant affect. A total of 38 minutes of time were spent preparing this complex discharge summary. Pt was discharged on 12/07/21 at 11:22 AM Patient Condition at Discharge: Stable Plan - Discharge Summary Discharge Rx Participant: No New Discharge Prescriptions: Continue Zonisamide 100 mg PO BID@1200,2100 Butalb/APAP/Caff 50-325-40Mg [Fioricet 50-325-40] 1 tab PO Q6H PRN PRN Reason: Migraine Headache ondansetron HCL [Zofran] 8 mg PO TID PRN PRN Reason: Nausea Galcanezumab-Gnlm [Emgality Pen] 120 mg SQ Q30D Desvenlafaxine [Pristiq ER] 100 mg PO DAILY Montelukast Sodium [Singulair] 10 mg PO HS HYDROcodone/APAP 10-325MG [[place] 10-325] 1 tab PO TID PRN PRN Reason: Pain Levothyroxine Sodium [Synthroid] 50 mcg PO DAILY Ocrevus 1 dose IV Q180D Baclofen [Lioresal] 20 mg PO TID Oxybutynin Chloride [Oxybutynin Chloride ER] 10 mg PO HS Gabapentin 600 mg PO QID Aspirin EC [Ecotrin Low Dose] 81 mg PO HS Multivit with Calcium,Iron,Min [Women's Multivitamin] 1 tab PO DAILY Sucralfate [Carafate] 1 gm PO BID #60 tablet Albuterol Sulfate [Proventil Hfa] 2 puff INHALATION RT-QID PRN PRN Reason: Shortness Of Breath Ondansetron Odt [Zofran ODT] 8 mg PO DAILY Rimegepant Sulfate [Nurtec Odt] 75 mg PO DAILY PRN PRN Reason: Migraine Headache Omeprazole 40 mg PO HS Meclizine [Antivert] 25 mg PO TID PRN PRN Reason: Vertigo hydrOXYzine pamoate [Vistaril] 50 mg PO TID Changed busPIRone HCL 10 mg PO BID #0 Discontinued Desvenlafaxine Succinate [Pristiq] 25 mg PO DAILY Discharge Medication List Zonisamide 100 mg PO BID@1200,2100 04/06/15 [History] Butalb/APAP/Caff 50-325-40Mg [Fioricet 50-325-40] 1 tab PO Q6H PRN 10/05/18 [History] Galcanezumab-Gnlm [Emgality Pen] 120 mg SQ Q30D 03/21/19 [History] ondansetron HCL [Zofran] 8 mg PO TID PRN 03/21/19 [History] Desvenlafaxine [Pristiq ER] 100 mg PO DAILY 07/04/20 [History] HYDROcodone/APAP 10-325MG [[place] 10-325] 1 tab PO TID PRN 07/04/20 [History] Montelukast Sodium [Singulair] 10 mg PO HS 07/04/20 [History] Levothyroxine Sodium [Synthroid] 50 mcg PO DAILY 08/04/20 [History] Ocrevus 1 dose IV Q180D 10/15/20 [History] Albuterol Sulfate [Proventil Hfa] 2 puff INHALATION RT-QID PRN 10/25/20 [History] Baclofen [Lioresal] 20 mg PO TID 10/25/20 [History] Oxybutynin Chloride [Oxybutynin Chloride ER] 10 mg PO HS 10/25/20 [History] Gabapentin 600 mg PO QID 01/15/21 [History] Aspirin EC [Ecotrin Low Dose] 81 mg PO HS 04/28/21 [History] Meclizine [Antivert] 25 mg PO TID PRN 04/28/21 [History] Omeprazole 40 mg PO HS 04/28/21 [History] Ondansetron Odt [Zofran ODT] 8 mg PO DAILY 04/28/21 [History] Rimegepant Sulfate [Nurtec Odt] 75 mg PO DAILY PRN 04/28/21 [History] Multivit with Calcium,Iron,Min [Women's Multivitamin] 1 tab PO DAILY 06/26/21 [History] hydrOXYzine pamoate [Vistaril] 50 mg PO TID 08/21/21 [History] Sucralfate [Carafate] 1 gm PO BID #60 tablet 08/22/21 [Rx] busPIRone HCL 10 mg PO BID #0 12/07/21 [Rx] Follow up Appointment(s)/Referral(s): Malia Magana MD [STAFF PHYSICIAN] - 1 Week Parminder Torres DO [Primary Care Provider] - 1-2 days Yasmani Delgado MD [Medical Doctor] - 1 Week Patient Instructions/Handouts: Paresthesia (ED) Activity/Diet/Wound Care/Special Instructions: Activity: As tolerated. Take breaks as needed. Diet: Heart healthy and carb consistent diet. Avoid salts, or foods with hidden salts such as canned or boxed foods and frozen dinners. Extra salt makes your heart work harder and traps the fluid in your body for longer. Special Instructions: Take all of your medications as directed and remember to keep all of your doctor's appointments and follow-up as needed. Continue to follow-up with [facility] counseling, psychiatry evaluated. Psychiatry recommended decreasing dose of BuSpar to 10 mg twice daily and decreasing Pristiq to 100 mg daily. Thank you for allowing us to participate in your care, it was truly a pleasure having you for our patient!!! Discharge Disposition: HOME SELF-CARE
[2021-12-07 14:06] VITALS: BP 122/80; PULSE 52; TEMP 98.5
--- NOTE | 2021-12-07 15:40 | P.PN ---
Subjective Progress Note Date: 12/07/21 Principal diagnosis: Dysthymic dis Generalized anxiety dis The patient was seen and she is being discharged today I reviewed some questions as to what it is her medications work on and what she needs to do besides taking medications in order to deal with her depression and anxiety. Her response times are quite good eye contact focus and energy are fine so the main thrust of her medicines is serotonin. She has 100 of Pristiq backed up but then twice a day of BuSpar and that seems to be working most the time on anxiety she has occasional mild breakthrough. She was able to recite to me some of the insight she had gotten from counseling and her plans to continue to apply that. She is definitely on adequate medications I don't have any suggestions at this time. She seemed very hopeful pleasant and appreciative we had a nice George Stephen denying any suicidality or homicidality Objective - Vital Signs Vital signs: Vital Signs Temp 98.5 F 12/07/21 14:06 Pulse 52 L 12/07/21 14:06 Resp 18 12/07/21 14:06 BP 122/80 12/07/21 14:06 Pulse Ox 93 L 12/07/21 15:32 FiO2 Intake & Output 12/06/21 12/07/21 12/07/21 18:59 06:59 18:59 Intake Total 1080 Balance 1080 Intake: Intake, IV Titration 600 Amount Sodium Chloride 0.9% 1, 600 000 ml @ 75 mls/hr IV . [id number] [facility] Rx#:[id number] Oral 480 Other: Voiding Method Toilet Toilet # Voids 3 2 1 - Labs CBC & Chem 7: 12/06/21 01:23 12/06/21 01:23 Labs: Abnormal Lab Results - Last 24 Hours (Table) 12/06/21 Range/Units 09:16 Urine Opiates Screen Positive A (Negative)
[2021-12-07] MEDS: ZONISAMIDE 100 MG CAP PO SCH (16:31)
== END 2021-12-07 16:55 | disposition home or self-care (01) ==
LOC: EC 21:26 → 6NMEDSUR 12-06 01:26
PROVIDERS: ADMIT Internal Medicine; ATTEND Internal Medicine
DX: R07.89 Other chest pain (principal); R20.2 Paresthesia of skin; G35 Multiple sclerosis; J45.909 Unspecified asthma, uncomplicated; K58.9 Irritable bowel syndrome, unspecified; F32.A Depression, unspecified; F43.10 Post-traumatic stress disorder, unspecified; F41.1 Generalized anxiety disorder; E66.01 Morbid (severe) obesity due to excess calories; I42.9 Cardiomyopathy, unspecified; G89.29 Other chronic pain; E03.9 Hypothyroidism, unspecified; Z79.890 Hormone replacement therapy; Z88.5 Allergy status to narcotic agent; Z79.899 Other long term (current) drug therapy; Z86.718 Personal history of other venous thrombosis and embolism; Z86.711 Personal history of pulmonary embolism; Z90.49 Acquired absence of other specified parts of digestive tract; Z98.84 Bariatric surgery status; Z83.3 Family history of diabetes mellitus; Z32.02 Encounter for pregnancy test, result negative; Z68.43 Body mass index [BMI] 50.0-59.9, adult
CPT/HCPCS: 96376; 96365; 96372 ×3; 96375; 99285; 93005; 93306; 83880; 80053; 83605; 83735; 84100; 84443; 84484; 85025; 85610; 85730; 81001; 81025; 80306; 71045; 70450; 70553; G0378 ×2; J2405; J2930 ×2; J1170; J1644 ×2; A9585

== ENCOUNTER 2021-12-12 19:56 | Emergency (ER) | payer OTHER ==
[2021-12-12 21:26] VITALS: BP 147/99; PULSE 96; RESP 16; TEMP 98.1
[2021-12-12] MEDS ORDERED: KETOROLAC 15 MG/ML 1 ML VIAL IM STA (22:17)
--- NOTE | 2021-12-12 22:51 | XR ---
EXAMINATION TYPE: XR shoulder complete LT DATE OF EXAM: 12/12/2021 COMPARISON: NONE HISTORY: Pain TECHNIQUE: 3 views FINDINGS: There is no evidence of fracture nor dislocation. AC joint is intact. Soft tissues appear n ormal. IMPRESSION: Negative left shoulder exam.
--- NOTE | 2021-12-12 22:51 | XR ---
EXAMINATION TYPE: XR elbow complete LT DATE OF EXAM: 12/12/2021 COMPARISON: None HISTORY: Pain TECHNIQUE: 3 views FINDINGS: Elbow joint spaces are normal. No fracture nor dislocation. There is no sign of joint effus ion. IMPRESSION: Normal left elbow exam.
--- NOTE | 2021-12-12 22:53 | XR ---
EXAMINATION TYPE: XR wrist complete LT DATE OF EXAM: 12/12/2021 COMPARISON: NONE HISTORY: Pain TECHNIQUE: 4 views FINDINGS: Scaphoid bone is intact. There is no fracture nor dislocation. Joint spaces are normal. Car pal bones are intact. IMPRESSION: Normal left wrist exam.
[2021-12-12] MEDS ORDERED: traMADol 50 MG STARTER PACK 3 TAB BTL PO STA (23:54)
--- NOTE | 2021-12-12 23:57 | ED ---
Fall HPI - General Chief Complaint: Fall Stated Complaint: Fall-L wrist injury Time Seen by Provider: 12/12/21 22:12 Source: patient Mode of arrival: ambulatory - History of Present Illness Initial Comments: Patient is a 26-year-old female presenting with chief complaint left arm pain. Patient states that she had a FOOSH yesterday when her flip-flop caused her to trip over the curb. Patient fell onto her outstretched left hand. She is complaining of pain mainly in the wrist, elbow, shoulder. She denies any numbness, tingling, weakness. She admits to pain with range of motion. She has been taking [place] for the pain which has not been helpful in alleviating her symptoms. - Related Data Home Medications Medication Instructions Recorded Confirmed Zonisamide 100 mg PO BID@1200,2100 04/06/15 12/06/21 Butalb/APAP/Caff 50-325-40Mg 1 tab PO Q6H PRN 10/05/18 12/06/21 [Fioricet 50-325-40] Galcanezumab-Gnlm [Emgality Pen] 120 mg SQ Q30D 03/21/19 12/06/21 ondansetron HCL [Zofran] 8 mg PO TID PRN 03/21/19 12/06/21 Desvenlafaxine [Pristiq ER] 100 mg PO DAILY 07/04/20 12/06/21 HYDROcodone/APAP 10-325MG [[place] 1 tab PO TID PRN 07/04/20 12/06/21 10-325] Montelukast Sodium [Singulair] 10 mg PO HS 07/04/20 12/06/21 Levothyroxine Sodium [Synthroid] 50 mcg PO DAILY 08/04/20 12/06/21 Ocrevus 1 dose IV Q180D 10/15/20 12/06/21 Albuterol Sulfate [Proventil Hfa] 2 puff INHALATION RT-QID PRN 10/25/20 12/06/21 Baclofen [Lioresal] 20 mg PO TID 10/25/20 12/06/21 Oxybutynin Chloride [Oxybutynin 10 mg PO HS 10/25/20 12/06/21 Chloride ER] Gabapentin 600 mg PO QID 01/15/21 12/06/21 Aspirin EC [Ecotrin Low Dose] 81 mg PO HS 04/28/21 12/06/21 Meclizine [Antivert] 25 mg PO TID PRN 04/28/21 12/06/21 Omeprazole 40 mg PO HS 04/28/21 12/06/21 Ondansetron Odt [Zofran ODT] 8 mg PO DAILY 04/28/21 12/06/21 Rimegepant Sulfate [Nurtec Odt] 75 mg PO DAILY PRN 04/28/21 12/06/21 Multivit with Calcium,Iron,Min 1 tab PO DAILY 06/26/21 12/06/21 [Women's Multivitamin] hydrOXYzine pamoate [Vistaril] 50 mg PO TID 08/21/21 12/06/21 Previous Rx's Medication Instructions Recorded Sucralfate [Carafate] 1 gm PO BID #60 tablet 08/22/21 busPIRone HCL 10 mg PO BID #0 12/07/21 Allergies Allergy/AdvReac Type Severity Reaction Status Date / Time codeine Allergy Anaphylaxis Verified 12/12/21 21:23 peanut Allergy Anaphylaxis Verified 12/12/21 21:23 aspartame AdvReac Diarrhea Verified 12/12/21 21:23 fingolimod [From [employer]] AdvReac Abdominal Verified 12/12/21 21:23 Pain ibuprofen AdvReac Abdominal Verified 12/12/21 21:23 Pain lactose AdvReac Nausea & Verified 12/12/21 21:23 Vomiting & Diarrhea Review of Systems ROS Statement: Those systems with pertinent positive or pertinent negative responses have been documented in the HPI. ROS Other: All systems not noted in ROS Statement are negative. 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, Multiple Sclerosis dx November 2018, pt states left leg weak and uses walker ., Bladder retention, frequent flares with panniculitis (worse since weight loss); pt states last 2 weeks since 10/09/20 chest pain and SOB have been increasing, pna History of Any Multi-Drug Resistant Organisms: MRSA Date of last positivie culture/infection: 11/08/17 MDRO Source:: LT INNER THIGH Past Surgical History: Bariatric Surgery, Cholecystectomy, Ear Surgery Additional Past Surgical History / Comment(s): tubes in ears, EGD, laparoscopic [id number] 02-08-2018 , EGD with dilation Past Anesthesia/Blood Transfusion Reactions: No Reported Reaction Past Psychological History: Anxiety, Depression, PTSD Smoking Status: Never smoker Past Alcohol Use History: None Reported Past Drug Use History: None Reported - Past Family History Mother Family Medical History: Diabetes Mellitus Father Family Medical History: Unable to Obtain General Exam Limitations: no limitations General appearance: alert, in no apparent distress Head exam: Present: atraumatic, normocephalic, normal inspection Eye exam: Present: normal appearance, EOMI. Absent: scleral icterus, periorbital swelling Neck exam: Present: normal inspection Left Shoulder Exam: Present: normal inspection. Absent: full ROM (Secondary to pain), tenderness, swelling Elbow exam: Present: normal inspection, full ROM. Absent: tenderness, swelling Hand Wrist exam: Present: normal inspection. Absent: full ROM (Secondary to pain), tenderness, swelling Course Vital Signs 12/12/21 21:23 Temperature 98.1 F Pulse Rate 96 Respiratory 16 Rate Blood Pressure 147/99 O2 Sat by Pulse 96 Oximetry Medical Decision Making - Medical Decision Making Patient is a 26-year-old female presenting with chief complaint of left arm pain after falling onto an outstretched left hand yesterday. On examination she has limited range of motion secondary to pain, there appears to be no swelling or deformity. She denies any numbness, when, weakness. X-ray shows no acute fracture or dislocation. Patient does have snuffbox tenderness, she was placed in a thumb spica splint and instructed to follow up with orthopedics. Discussed supportive treatment. Report back to ER if any new or worsening symptoms. Follow-up with PCP and orthopedics. Discussed return parameters and answered all questions. Patient conveyed verbal understanding and agreed to the plan. I discussed this case with my attending Dr. Demarco Disposition Clinical Impression: Tenderness of anatomical snuffbox Disposition: HOME SELF-CARE Condition: Good Instructions (If sedation given, give patient instructions): Wrist Sprain (ED) Additional Instructions: Follow-up with PCP in orthopedics in one to 2 days. Report back to ER with any new or worsening symptoms. Rest, ice, compress, elevate for symptomatic management. Take Motrin and Tylenol as needed for pain control. Take medication as prescribed. Is patient prescribed a controlled substance at d/c from ED?: No Referrals: Parminder Torres DO [Primary Care Provider] - 1-2 days Anette Huff DO [Doctor of Osteopathic Medicine] - 1-2 days Time of Disposition: 23:57
== END 2021-12-13 00:05 | disposition home or self-care (01) ==
LOC: EC 19:56
DX: S62.001A Unspecified fracture of navicular [scaphoid] bone of right wrist, initial encounter for closed fracture (principal); J45.909 Unspecified asthma, uncomplicated; F41.9 Anxiety disorder, unspecified; F32.A Depression, unspecified; Z86.73 Personal history of transient ischemic attack (TIA), and cerebral infarction without residual deficits; I26.99 Other pulmonary embolism without acute cor pulmonale; Z88.5 Allergy status to narcotic agent; Z91.010 Allergy to peanuts; Z88.8 Allergy status to other drugs, medicaments and biological substances; Z88.6 Allergy status to analgesic agent; Z91.011 Allergy to milk products; Z79.51 Long term (current) use of inhaled steroids; Z79.899 Other long term (current) drug therapy; W18.49XA Other slipping, tripping and stumbling without falling, initial encounter
CPT/HCPCS: 73030; 73080; 73110; 99284; J1885; 96372

== ENCOUNTER → 2022-01-08 | Outpatient (CLI) | payer OTHER ==
--- NOTE | 2022-01-08 17:05 | P.SLEEP ---
History of Present Illness DATE: 01/08/2022 CONSULTATION/NEW PATIENT EVALUATION HISTORY OF PRESENT ILLNESS/SLEEP-WAKE EVALUATION: 26year old lady had been e valuated in the sleep center for possible obstructive sleep apnea hypopnea syndrome. SLEEP SCHEDULE: Usually sleep schedule from 1011 PM until 712 noon. FALLING ASLEEP: Patient does have some problems with falling asleep, has TV set in bedroom. DURING SLEEP: Patient snores, has awakenings from sleep up to 6 times with weakness episodes. Breathing during the sleep and gasping for air. Positive history of restless leg symptoms. No history of hypnogogical hallucinations, sleep paralysis, or cataplexy. DURING THE DAY/WAKE STATE: In the morning patient wake up tired, has difficulties to pay attention, falling asleep during the day, has problems with memory, concentration, irritability, depression, anxiety, claustrophobia. [place] sleepiness scale is increased to 10. Patient take 1-2 naps a day. PAST MEDICAL HISTORY: Depression, anxiety, migraines, back pain, hip pain, multiple sclerosis with brain lesion, vertigo. PAST SURGICAL HISTORY: Cholecystectomy, gastric bypass, balloon surgery for esophagus. MEDICATIONS: Omeprazole, levothyroxine, BuSpar, gabapentin, oxybutynin, [place], vistaril, Montelucast. SOCIAL HISTORY: Negative for smoking, alcohol consumption occasional. FAMILY HISTORY: Heart problems, asthma, bronchitis, acid reflux, diabetes, thyroid problems, mental illness. REVIEW OF SYSTEMS: Snoring, multiple awakenings from sleep, sleepiness during the day. No fevers. No double vision. No recent chest pain. No shortness of breath. No abdominal pain. No bleeding episodes. No blood in urine. No seizure episodes. PHYSICAL EXAMINATION: GENERAL: A pleasant patient without any distress. VITAL SIGNS: BP 105/77, HR and 101, RR 16, weight 367 pounds, height 5 foot 7.5 inches, body mass index 56.6. HEENT: PERRLA, EOMI. Evaluation of oropharynx showed tongue protrudes midline, low position of soft palate Mallampati 4. NECK: Supple. No JVD. Thyroid is not palpable. 15-3/4 inches in circumference. LUNGS: Clear to percussion and to auscultation. Good air exchange. No wheezing or rhonchi. HEART: S1, S2 regular. No murmurs, gallops or rubs. ABDOMEN: Soft and nontender. Bowel sounds are present. No organomegaly appreciated. Obese. EXTREMITIES: No clubbing or cyanosis. 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 Cranial nerves 2 to 7 intact. There is no fasciculation or atrophy noted. No focal deficits observed. ASSESSMENT: 1. Snoring, multiple awakenings from sleep, sleepiness during the day, extremely low position of soft palate Mallampati 4. Obstructive sleep apnea hypopnea syndrome. 2. Morbid obesity body mass and is 56.6. 3 history of multiple sclerosis with lesion in the brain. 4. History of depression. 5 history of anxiety. 6. Migraines. 7. Back problems. 8. She pain. 9. Status post gastric bypass. 10. Status post balloon is esophageal surgery. 11. Episodes of vertigo. 12 insomnia. 13 history of claustrophobic reaction. PLAN: 1. Polysomnography for evaluation of patient's breathing during sleep. 2. CPAP/BiPAP titration if sleep study confirms obstructive sleep apnea- hypopnea syndrome. 3. Preferable position during sleep on the side. 4. No driving if patient feels any sleepiness. Patient is aware of civil and criminal liability for unsafe driving. 5. Sleep hygiene with regular sleep time for at least 7.5-8 hours. 6. Loosing weight. Thank you very much for referring this patient for consultation. Sincerely, Owen Rhoades MD, PhD, FAASM. Diplomat of [place] [employer], Sleep Medicine Board by [place] [employer] [place] [employer] T[employer] of [facility] [place] 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, Multiple Sclerosis dx November 2018, pt states left leg weak and uses walker ., Bladder retention, frequent flares with panniculitis (worse since weight loss); pt states last 2 weeks since 10/09/20 chest pain and SOB have been increasing, pna History of Any Multi-Drug Resistant Organisms: MRSA Date of last positivie culture/infection: 11/08/17 MDRO Source:: LT INNER THIGH Past Surgical History: Bariatric Surgery, Cholecystectomy, Ear Surgery Additional Past Surgical History / Comment(s): tubes in ears, EGD, laparoscopic kimberly-en-y 02-08-2018 , EGD with dilation Past Anesthesia/Blood Transfusion Reactions: No Reported Reaction Smoking Status: Never smoker - Past Family History Mother Family Medical History: Diabetes Mellitus Father Family Medical History: Unable to Obtain Medications and Allergies Home Medications Medication Instructions Recorded Confirmed Type Zonisamide 100 mg PO BID@1200,2100 04/06/15 01/03/22 History Butalb/APAP/Caff 50-325-40Mg 1 tab PO Q6H PRN 10/05/18 01/03/22 History [Fioricet 50-325-40] Galcanezumab-Gnlm [Emgality Pen] 120 mg SQ Q30D 03/21/19 01/03/22 History HYDROcodone/APAP 10-325MG [[place] 1 tab PO TID PRN 07/04/20 01/03/22 History 10-325] Montelukast Sodium [Singulair] 10 mg PO HS 07/04/20 01/03/22 History Levothyroxine Sodium [Synthroid] 50 mcg PO DAILY 08/04/20 01/03/22 History Ocrevus 1 dose IV Q180D 10/15/20 01/03/22 History Albuterol Sulfate [Proventil Hfa] 2 puff INHALATION RT-QID PRN 10/25/20 12/06/21 History Baclofen [Lioresal] 20 mg PO TID 10/25/20 01/03/22 History Oxybutynin Chloride [Oxybutynin 10 mg PO HS 10/25/20 01/03/22 History Chloride ER] Gabapentin 600 mg PO QID 01/15/21 01/03/22 History Aspirin EC [Ecotrin Low Dose] 81 mg PO HS 04/28/21 01/03/22 History Omeprazole 40 mg PO BID 04/28/21 01/03/22 History Ondansetron Odt [Zofran ODT] 4 mg PO BID PRN 04/28/21 01/03/22 History Multivit with Calcium,Iron,Min 1 tab PO DAILY 06/26/21 01/03/22 History [Women's Multivitamin] hydrOXYzine pamoate [Vistaril] 50 mg PO TID 08/21/21 01/03/22 History Sucralfate [Carafate] 1 gm PO BID #60 tablet 08/22/21 01/03/22 Rx Desvenlafaxine [Pristiq ER] 125 mg PO QAM 01/03/22 01/03/22 History Phenylephrine HCl [Sudafed PE] 10 mg PO QID PRN 01/03/22 01/03/22 History Promethazine [Phenergan] 12.5 mg PO BID PRN 01/03/22 01/03/22 History Ubrelvy(Unk Dose) 1 tab PO DAILY PRN 01/03/22 History busPIRone HCL 15 mg PO QID 01/03/22 01/03/22 History Allergies Allergy/AdvReac Type Severity Reaction Status Date / Time codeine Allergy Anaphylaxis Verified 01/03/22 12:43 peanut Allergy Anaphylaxis Verified 01/03/22 12:43 aspartame AdvReac Diarrhea Verified 01/03/22 12:43 fingolimod [From [employer]] AdvReac Abdominal Verified 01/03/22 12:43 Pain ibuprofen AdvReac Abdominal Verified 01/03/22 12:43 Pain lactose AdvReac Nausea & Verified 01/03/22 12:43 Vomiting & Diarrhea Sleep Note - Sleep Note Sleep Note: Temperature: Pulse Rate: Respiratory Rate: Blood Pressure: SpO2: Height: Weight: BMI: Neck Circumference:
== END ==
LOC: SLEEP 15:41
PROVIDERS: ATTEND Internal Medicine
DX: G47.33 Obstructive sleep apnea (adult) (pediatric) (principal); E66.01 Morbid (severe) obesity due to excess calories; Z68.43 Body mass index [BMI] 50.0-59.9, adult; F32.A Depression, unspecified; G43.909 Migraine, unspecified, not intractable, without status migrainosus; M53.80 Other specified dorsopathies, site unspecified; F41.9 Anxiety disorder, unspecified; Z98.84 Bariatric surgery status; Z86.59 Personal history of other mental and behavioral disorders; Z88.5 Allergy status to narcotic agent; Z91.010 Allergy to peanuts; Z91.02 Food additives allergy status; Z88.6 Allergy status to analgesic agent; Z91.011 Allergy to milk products
CPT/HCPCS: 99211

== ENCOUNTER 2022-02-24 12:21 | Day surgery (SDC) | payer OTHER ==
[2022-02-20 15:41] VITALS: BMI 54.8
[~2022-02-24 12:21] MED LIST changes: -LIDOCAINE 1% 20 ML VIAL (10MG/ML) FOR IV START INTRADERMA PRN; +SODIUM CHLORIDE 0.9% 1,000 ML IV SCH
[2022-02-24] MEDS ORDERED: SODIUM CHLORIDE 0.9% 500 ML 500 ML IV ONE (12:25)
[2022-02-24 13:03] VITALS: RESP 16; TEMP 98.9
[2022-02-24 14:44] VITALS: BP 142/78; PULSE 78
--- NOTE | 2022-02-25 17:56 | P.EPPROC ---
- EP Procedure Note Electrophysiology Procedure Note: Diagnosis Recurrent syncope Twelve-lead EKG shows Sinus mechanism normal [place] narrow QRS normal ST segments normal QT interval Tilt table test per protocol Baseline blood pressure 134/76. His mercury, Baseline heart rate 67 beats a minute Patient was tilted upright at an angle of 70 per protocol heart rates remained in the 70s and 80s Blood pressure remained mildly elevated She complained of being nauseous chest pressure Later, she complained of nausea and feeling dizzy and lightheaded She was laid supine at the end of the procedure Impression normal twelve-lead EKG Normal heart rate response to upright tilting Elevated blood pressure readings upon upright position No evidence for neurocardiogenic syncope of dysautonomia Patient's symptoms of nausea and dizziness did not correlate with any arrhythmias or any abnormal heart rates Blood pressure was elevated upon assuming upright position
--- NOTE | 2022-02-25 17:56 | P.EPPROC ---
- EP Procedure Note Electrophysiology Procedure Note: Diagnosis Recurrent syncope Twelve-lead EKG shows Sinus mechanism normal [place] narrow QRS normal ST segments normal QT interval Tilt table test per protocol Baseline blood pressure 134/76. His mercury, Baseline heart rate 67 beats a minute Patient was tilted upright at an angle of 70 per protocol heart rates remained in the 70s and 80s Blood pressure remained mildly elevated She complained of being nauseous chest pressure Later, she complained of nausea and feeling dizzy and lightheaded She was laid supine at the end of the procedure Impression normal twelve-lead EKG Normal heart rate response to upright tilting Elevated blood pressure readings upon upright position No evidence for neurocardiogenic syncope of dysautonomia Patient's symptoms of nausea and dizziness did not correlate with any arrhythmias or any abnormal heart rates Blood pressure was elevated upon assuming upright position
== END 2022-02-24 14:35 | disposition home or self-care (01) ==
LOC: CATHEP 12:21
PROVIDERS: ATTEND Internal Medicine Clinical Cardiac Electrophysiology
DX: R55 Syncope and collapse (principal); R03.0 Elevated blood-pressure reading, without diagnosis of hypertension; R11.0 Nausea; R42 Dizziness and giddiness
CPT/HCPCS: 81025; 93660

== ENCOUNTER → 2022-04-21 | Outpatient (CLI) | payer OTHER ==
[2022-04-21 17:52] LABS: Basophils # (A) 0.05 X 10*3/uL (0.00-0.10); Basophils % (A) 0.6 %; Eosinophils # (A) 0.39 X 10*3/uL (0.04-0.35); Eosinophils % (A) 4.8 %; HCT 40.6 % (37.2-46.3); HGB 13.5 g/dL (12.0-15.0); Immature Grans, Automated 0.2 %; Lymphocytes # (A) 2.16 X 10*3/uL (0.90-5.00); Lymphocytes % (A) 26.6 %; MCH 30.7 pg (27.0-32.0); MCHC 33.3 g/dL (32.0-37.0); MCV 92.3 fL (80.0-97.0); Mean Platelet Volume 12.5 fL (9.5-12.2); Monocytes # (A) 0.52 X 10*3/uL (0.20-1.00); Monocytes % (A) 6.4 %; NRBC Per 100 WBC 0 /100 WBCS (0.0-0.0); Neutrophils # (A) 4.97 X 10*3/uL (1.80-7.70); Neutrophils % (A) 61.4 %; Platelet Count 244 X 10*3/uL (140-440); RDW 12.4 % (11.5-14.5); WBC 8.11 X 10*3/uL (4.50-10.00)
[2022-04-21 18:22] LABS: ALT 17 U/L (8-44); AST 17 U/L (13-35); African American GFR (CKD) 137.4 (60.0-200.0); Albumin 4.3 g/dL (3.8-4.9); Albumin/Globulin Ratio 2.67 (1.60-3.17); Alkaline Phosphatase 87 U/L (41-126); Blood Urea Nitrogen 14.4 mg/dL (9.0-27.0); Calcium 9.6 mg/dL (8.7-10.3); Carbon Dioxide 21.6 mmol/L (20.0-27.5); Chloride 110 mmol/L (96-109); Globulin 1.6 g/dL (1.6-3.3); Glucose 106 mg/dL (70-110); Non-African American GFR(CKD) 118.5 (60.0-200.0); Sodium 144 mmol/L (135-145); Total Bilirubin <0.15 mg/dL (0.30-1.20); Total Protein 5.9 g/dL (6.2-8.2)
== END | disposition home or self-care (01) ==
LOC: LABWHC1 10:44
PROVIDERS: ATTEND Psychiatry & Neurology Neurology
DX: I49.9 Cardiac arrhythmia, unspecified (principal); E55.9 Vitamin D deficiency, unspecified; E53.9 Vitamin B deficiency, unspecified; G35 Multiple sclerosis; R53.83 Other fatigue; R94.31 Abnormal electrocardiogram [ECG] [EKG]; Z79.899 Other long term (current) drug therapy
CPT/HCPCS: 36415; 80053; 82306; 82607; 84207; 85025; 93005

== ENCOUNTER 2022-08-08 16:00 | Emergency (ER) | payer OTHER ==
[2022-08-08 16:26] VITALS: TEMP 98.5
--- NOTE | 2022-08-08 16:28 | ED ---
General Adult HPI - General Source: patient, RN notes reviewed Mode of arrival: ambulatory Limitations: no limitations <Sridevi Silver - Last Filed: 08/08/22 20:01> - General Source: patient, RN notes reviewed, old records reviewed - History of Present Illness -: days(s) (2) Location: chest, right, lower extremity <Altaf He - Last Filed: 08/08/22 21:28> - General Chief complaint: Chest Pain Stated complaint: chest pain possible DVT Time Seen by Provider: 08/08/22 16:24 - History of Present Illness Initial comments: When I went to evaluate the patient, states that the right leg pain has since resolved. Today she is now experiencing the chest pain and shortness of breath. This feels the same as when she had a blood clot in the past. Also notes a history of asthma. Additionally, states that she has started to develop a headache, which she believes is due to the chest pain, and has associated nausea and vomiting. (Sridevi Silver) Visual Physical Exam Vital signs reviewed General: Well-appearing, nontoxic, no acute distress. Head: Normocephalic, atraumatic ENT: Airway patent Chest: Nonlabored breathing Skin: No visual rash, normal skin tone Neuro: Alert and oriented 3 Musculoskeletal: No gross abnormalities Non-toxic appearing female presents via wheelchair with complaints of right leg pain that started yesterday and today sharp chest pain. States has a history of DVT and PE last year and was on a blood thinner for 6 months and stopped. Takes an aspirin a day no other thinners. feels like she's having another blood clot. (Altaf He) - Related Data Home Medications Medication Instructions Recorded Confirmed Zonisamide 100 mg PO BID@1200,2100 04/06/15 08/08/22 Butalb/APAP/Caff 50-325-40Mg 1 tab PO Q6H PRN 10/05/18 08/08/22 [Fioricet 50-325-40] Galcanezumab-Gnlm [Emgality Pen] 120 mg SQ Q30D 03/21/19 08/08/22 HYDROcodone/APAP 10-325MG [[place] 1 tab PO TID 07/04/20 08/08/22 10-325] Montelukast Sodium [Singulair] 10 mg PO HS 07/04/20 08/08/22 Levothyroxine Sodium [Synthroid] 50 mcg PO DAILY 08/04/20 08/08/22 Ocrevus 1 dose IV Q180D 10/15/20 08/08/22 Albuterol Sulfate [Proventil Hfa] 2 puff INHALATION RT-QID PRN 10/25/20 08/08/22 Baclofen [Lioresal] 20 mg PO TID 10/25/20 08/08/22 Oxybutynin Chloride [Oxybutynin 10 mg PO HS 10/25/20 08/08/22 Chloride ER] Gabapentin 600 mg PO QID 01/15/21 08/08/22 Aspirin EC [Ecotrin Low Dose] 81 mg PO DAILY 04/28/21 08/08/22 Omeprazole 40 mg PO BID 04/28/21 08/08/22 Ondansetron Odt [Zofran ODT] 4 mg PO Q12H PRN 04/28/21 08/08/22 Multivit with Calcium,Iron,Min 1 tab PO DAILY 06/26/21 08/08/22 [Women's Multivitamin] hydrOXYzine pamoate [Vistaril] 50 mg PO TID 08/21/21 08/08/22 Desvenlafaxine [Pristiq ER] 100 mg PO DAILY 01/03/22 08/08/22 Promethazine [Phenergan] 12.5 mg PO BID PRN 01/03/22 08/08/22 busPIRone HCL 15 mg PO QID 01/03/22 08/08/22 Cholecalciferol [Vitamin D3 (25 50 mcg PO DAILY 08/08/22 08/08/22 Mcg = 1000 Iu)] Fluticasone Propionate [Flovent 2 puff INHALATION RT-BID PRN 08/08/22 08/08/22 Hfa 220 mcg] Loratadine 10 mg PO DAILY 08/08/22 08/08/22 Meclizine [Antivert] 25 mg PO BID PRN 08/08/22 08/08/22 Propranolol [Inderal] 20 mg PO BID 08/08/22 08/08/22 Ubrogepant [Ubrelvy] 100 mg PO BID PRN 08/08/22 08/08/22 buPROPion XL [Wellbutrin XL] 150 mg PO DAILY 08/08/22 08/08/22 Previous Rx's Medication Instructions Recorded Sucralfate [Carafate] 1 gm PO BID #60 tablet 08/22/21 predniSONE 50 mg PO DAILY 5 Days #5 tablet 08/08/22 Allergies Allergy/AdvReac Type Severity Reaction Status Date / Time codeine Allergy Anaphylaxis Verified 08/08/22 18:42 peanut Allergy Anaphylaxis Verified 08/08/22 18:42 aspartame AdvReac Diarrhea Verified 08/08/22 18:42 fingolimod [From [employer]] AdvReac Abdominal Verified 08/08/22 18:42 Pain ibuprofen AdvReac Abdominal Verified 08/08/22 18:42 Pain lactose AdvReac Nausea & Verified 08/08/22 18:42 Vomiting & Diarrhea Review of Systems ROS Other: All systems not noted in ROS Statement are negative. <Sridevi Silver - Last Filed: 08/08/22 20:01> ROS Other: All systems not noted in ROS Statement are negative. <Altaf He - Last Filed: 08/08/22 21:28> ROS Statement: Those systems with pertinent positive or pertinent negative responses have been documented in the HPI. 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, Multiple Sclerosis dx November 2018, pt states left leg weak and uses walker ., Bladder retention, frequent flares with panniculitis (worse since weight loss); SEE DR NICK'S HISTORY REGARDING CARDIAC HISTORY History of Any Multi-Drug Resistant Organisms: MRSA Date of last positivie culture/infection: 11/08/17 MDRO Source:: LT INNER THIGH Past Surgical History: Bariatric Surgery, Cholecystectomy, Ear Surgery Additional Past Surgical History / Comment(s): tubes in ears, EGD, laparoscopic kimberly-en-y 02-08-2018 , EGD with dilation Past Anesthesia/Blood Transfusion Reactions: No Reported Reaction Smoking Status: Never smoker - Past Family History Mother Family Medical History: Diabetes Mellitus Father Family Medical History: Unable to Obtain <Altaf He - Last Filed: 08/08/22 21:28> General Exam Limitations: no limitations General appearance: alert, in no apparent distress Head exam: Present: atraumatic, normocephalic, normal inspection Respiratory exam: Present: decreased breath sounds, prolonged expiratory Cardiovascular Exam: Present: regular rate, normal rhythm, normal heart sounds. Absent: systolic murmur, diastolic murmur, rubs, gallop, clicks Neurological exam: Present: alert, oriented X3, CN II-XII intact Psychiatric exam: Present: normal affect, normal mood Skin exam: Present: warm, dry, intact, normal color. Absent: rash <Sridevi Silver - Last Filed: 08/08/22 20:01> Course Vital Signs 08/08/22 08/08/22 08/08/22 16:22 20:00 20:08 Temperature 98.5 F Pulse Rate 77 77 80 Respiratory 20 18 Rate Blood Pressure 159/86 140/79 O2 Sat by Pulse 98 96 Oximetry 08/08/22 20:17 Temperature Pulse Rate 80 Respiratory Rate Blood Pressure O2 Sat by Pulse Oximetry Medical Decision Making - Lab Data Result diagrams: 08/08/22 17:26 08/08/22 17:26 - Radiology Data Radiology results: report reviewed, image reviewed <Sridevi Silver - Last Filed: 08/08/22 20:01> - Lab Data Result diagrams: 08/08/22 17:26 08/08/22 17:26 <lAtaf He - Last Filed: 08/08/22 21:28> - Medical Decision Making This is a 27-year-old female who presents to the emergency department for chest pain and shortness of breath. Was pt. sent in by a medical professional or institution? @ -No Did you speak to anyone other than the patient for history? @ -No Did you review nursing and triage notes? @ -Yes, and I agree, it is accurate with regards to the patient's symptoms. Were old charts reviewed? @ -No Differential Diagnosis? @ -Differential Dyspnea: Coronary syndrome, arrhythmia, tamponade, asthma, COPD, pulmonary embolism, pneumonia, pneumothorax, pulmonary effusion, anaphylaxis, diabetic ketoacidosis, flailed chest, pulmonary contusion, diaphragmatic rupture, anemia, neuromuscular, this is not meant to be an all-inclusive list. -Differential Chest Pain: Stable Angina, Unstable Angina, STEMI, NSTEMI Aortic Dissection, Pneumothorax, Musculoskeletal, Esophageal Spasm GERD, Cholecystitis, Pancreatitis, Zoster, this is not meant to be an all-inclusive list. EKG interpreted by me (3pts min.)? @ -[none] X-rays interpreted by me (1pt min.)? @ -Chest x-ray obtained, my interpretation identifies no localized consolidations or infiltrates. U/S interpreted by me (1pt. min.)? @ -Duplex ultrasound of the right lower extremity obtained. My interpretation identifies no evidence of a DVT. What testing was considered but not performed? (CT, X-rays, U/S, labs)? Why? @ -None What meds were considered but not given? Why? @ -None Did you discuss the management of the patient with other professionals? @ -No Did you reconcile home meds? @ -No Was smoking cessation discussed for >3mins.? @ -No Was critical care preformed (if so, how long)? @ -No Were there social determinants of health that impacted care today? How? (Homelessness, low income, unemployed, alcoholism, drug addiction, transportation, low edu. Level, literacy, decrease access to med. care, prison, rehab)? @ -No Was there de-escalation of care discussed even if they declined? (Discuss DNR or withdrawal of care, Hospice)? @ -No What co-morbidities impacted this encounter? (DM, HTN, Smoking, COPD, CAD, Cancer, CVA, Hep., AIDS, mental health diagnosis, sleep apnea, morbid obesity)? @ -Asthma, morbid obesity Was patient admitted / discharged? @ -Discharged. Lab work obtained and found to be nonactionable including a negative troponin and negative d-dimer. She is positive for influenza A. Duplex ultrasound of the right lower extremity reveals no evidence of a DVT and chest x-ray is also unremarkable. Based on these findings, symptoms are most likely related to an asthma exacerbation. Patient does note that she has been out of her Flovent inhaler, which is supposed to be getting refilled shortly. She was given a dose of Solu-Medrol through her IV and a prescription for a 5 day course of prednisone was provided. Undiagnosed new problem with uncertain prognosis? @ -None Drug Therapy requiring intensive monitoring for toxicity (Heparin, Nitro, Insulin, Cardizem)? @ -None Were any procedures done? @ -None Diagnosis/symptom? @ -Asthma exacerbation Acute, or Chronic, or Acute on Chronic? @ -Acute on chronic Uncomplicated (without systemic symptoms) or Complicated (systemic symptoms)? @ -Uncomplicated Side effects of treatment? @ -None Exacerbation, Progression, or Severe Exacerbation] @ -Exacerbation Poses a threat to life or bodily function? @ -No Diagnosis/symptom? @ -Influenza A Acute, or Chronic, or Acute on Chronic? @ -Acute Uncomplicated (without systemic symptoms) or Complicated (systemic symptoms)? @ -Uncomplicated Side effects of treatment? @ -None Exacerbation, Progression, or Severe Exacerbation] @ -Not applicable Poses a threat to life or bodily function? @ -No Return precautions reviewed in depth, the patient is instructed to return to the emergency department with any new, worsening, or concerning symptoms. Patient verbalized understanding. This case was discussed in detail with the attending ED physician, Dr. Kwok. Presentation, findings, and treatment plan discussed in detail as well. (Sridevi Silver) - Lab Data Lab Results 08/08/22 08/08/22 08/08/22 Range/Units 17:26 17:26 17:26 WBC 8.0 (3.8-10.6) k/uL RBC 4.53 (3.80-5.40) m/uL Hgb 13.8 (11.4-16.0) gm/dL Hct 40.7 (34.0-46.0) % MCV 90.0 (80.0-100.0) fL MCH 30.5 (25.0-35.0) pg MCHC 33.9 (31.0-37.0) g/dL RDW 12.7 (11.5-15.5) % Plt Count 287 (150-450) k/uL MPV 9.4 Neutrophils % 71 % Lymphocytes % 21 % Monocytes % 4 % Eosinophils % 3 % Basophils % 0 % Neutrophils # 5.7 (1.3-7.7) k/uL Lymphocytes # 1.6 (1.0-4.8) k/uL Monocytes # 0.3 (0-1.0) k/uL Eosinophils # 0.2 (0-0.7) k/uL Basophils # 0.0 (0-0.2) k/uL PT 10.0 (9.0-12.0) sec INR 0.9 (<1.2) APTT 22.5 (22.0-30.0) sec D-Dimer <0.17 (<0.60) mg/L FEU Sodium 138 (137-145) mmol/L Potassium 4.6 (3.5-5.1) mmol/L Chloride 109 H (98-107) mmol/L Carbon Dioxide 20 L (22-30) mmol/L Anion Gap 9 mmol/L BUN 11 (7-17) mg/dL Creatinine 0.58 (0.52-1.04) mg/dL Est GFR (CKD-EPI)AfAm >90 (>60 ml/min/1.73 sqM) Est GFR (CKD-EPI)NonAf >90 (>60 ml/min/1.73 sqM) Glucose 101 H (74-99) mg/dL Calcium 9.4 (8.4-10.2) mg/dL Magnesium 1.8 (1.6-2.3) mg/dL Total Bilirubin 0.5 (0.2-1.3) mg/dL AST 27 (14-36) U/L ALT 24 (4-34) U/L Alkaline Phosphatase 82 (38-126) U/L Troponin I (0.000-0.034) ng/mL Total Protein 6.7 (6.3-8.2) g/dL Albumin 4.5 (3.5-5.0) g/dL Influenza Type A (PCR) (Not Detectd) Influenza Type B (PCR) (Not Detectd) RSV (PCR) (Not Detectd) SARS-CoV-2 (PCR) (Not Detectd) 08/08/22 08/08/22 Range/Units 17:26 18:26 WBC (3.8-10.6) k/uL RBC (3.80-5.40) m/uL Hgb (11.4-16.0) gm/dL Hct (34.0-46.0) % MCV (80.0-100.0) fL MCH (25.0-35.0) pg MCHC (31.0-37.0) g/dL RDW (11.5-15.5) % Plt Count (150-450) k/uL MPV Neutrophils % % Lymphocytes % % Monocytes % % Eosinophils % % Basophils % % Neutrophils # (1.3-7.7) k/uL Lymphocytes # (1.0-4.8) k/uL Monocytes # (0-1.0) k/uL Eosinophils # (0-0.7) k/uL Basophils # (0-0.2) k/uL PT (9.0-12.0) sec INR (<1.2) APTT (22.0-30.0) sec D-Dimer (<0.60) mg/L FEU Sodium (137-145) mmol/L Potassium (3.5-5.1) mmol/L Chloride (98-107) mmol/L Carbon Dioxide (22-30) mmol/L Anion Gap mmol/L BUN (7-17) mg/dL Creatinine (0.52-1.04) mg/dL Est GFR (CKD-EPI)AfAm (>60 ml/min/1.73 sqM) Est GFR (CKD-EPI)NonAf (>60 ml/min/1.73 sqM) Glucose (74-99) mg/dL Calcium (8.4-10.2) mg/dL Magnesium (1.6-2.3) mg/dL Total Bilirubin (0.2-1.3) mg/dL AST (14-36) U/L ALT (4-34) U/L Alkaline Phosphatase (38-126) U/L Troponin I <0.012 (0.000-0.034) ng/mL Total Protein (6.3-8.2) g/dL Albumin (3.5-5.0) g/dL Influenza Type A (PCR) Detected A (Not Detectd) Influenza Type B (PCR) Not Detected (Not Detectd) RSV (PCR) Not Detected (Not Detectd) SARS-CoV-2 (PCR) Not Detected (Not Detectd) Disposition Is patient prescribed a controlled substance at d/c from ED?: No <Sridevi Silver - Last Filed: 08/08/22 20:01> Is patient prescribed a controlled substance at d/c from ED?: No <Altaf He - Last Filed: 08/08/22 21:28> Clinical Impression: Asthma exacerbation, Influenza A Disposition: HOME SELF-CARE Instructions (If sedation given, give patient instructions): Asthma (ED) Additional Instructions: Return to the emergency department with any new, worsening, or concerning symptoms. Take the prednisone daily for 5 days. Continue to use your albuterol inhaler every 4-6 hours as needed for difficulty breathing. Follow up with your primary care provider in 1-2 days. Prescriptions: predniSONE 50 mg PO DAILY 5 Days #5 tablet Referrals: Parminder Torres DO [Primary Care Provider] - 1-2 days
[2022-08-08] MEDS ORDERED: SODIUM CHLORIDE 0.9% 1,000 ML IV STA (17:02)
[2022-08-08] MEDS ORDERED: ONDANSETRON 4 MG/2 ML VIAL IVP STA (17:02)
[2022-08-08] MEDS ORDERED: IPRATROPIUM-ALBUTEROL 3 ML NEB INHALATION STA (17:02)
[2022-08-08] MEDS ORDERED: BUTALB/APAP/CAFF 50-325-40MG TAB PO STA (17:02)
[2022-08-08] MEDS ORDERED: KETOROLAC 15 MG/ML 1 ML VIAL IVP STA (17:03)
--- NOTE | 2022-08-08 17:46 | XR ---
EXAMINATION TYPE: XR chest 2V DATE OF EXAM: 08/08/2022 COMPARISON: 12/05/2021 HISTORY: Chest pain TECHNIQUE: FINDINGS: Heart is normal. Lungs are clear. Diaphragm is normal. Bony thorax is intact IMPRESSION: Normal chest. No change
[2022-08-08 18:32] LABS: ALT 24 U/L (4-34); AST 27 U/L (14-36); African American GFR (CKD) >90 (>60 ml/min/1.73 sqM); Albumin 4.5 g/dL (3.5-5.0); Alkaline Phosphatase 82 U/L (38-126); Anion Gap 9 mmol/L; Blood Urea Nitrogen 11 mg/dL (7-17); Calcium 9.4 mg/dL (8.4-10.2); Carbon Dioxide 20 mmol/L (22-30); Chloride 109 mmol/L (98-107); Glucose 101 mg/dL (74-99); Magnesium 1.8 mg/dL (1.6-2.3); Non-African American GFR(CKD) >90 (>60 ml/min/1.73 sqM); Sodium 138 mmol/L (137-145); Total Bilirubin 0.5 mg/dL (0.2-1.3); Total Protein 6.7 g/dL (6.3-8.2)
[2022-08-08 18:34] LABS: Basophils % (A) 0 %; Eosinophils # (A) 0.2 k/uL (0-0.7); Eosinophils % (A) 3 %; HCT 40.7 % (34.0-46.0); HGB 13.8 gm/dL (11.4-16.0); INR 0.9 (<1.2); Lymphocytes # (A) 1.6 k/uL (1.0-4.8); Lymphocytes % (A) 21 %; MCH 30.5 pg (25.0-35.0); MCHC 33.9 g/dL (31.0-37.0); Mean Platelet Volume 9.4; Monocytes # (A) 0.3 k/uL (0-1.0); Monocytes % (A) 4 %; Neutrophils # (A) 5.7 k/uL (1.3-7.7); Neutrophils % (A) 71 %; Partial Thromboplastin Time 22.5 sec (22.0-30.0); Platelet Count 287 k/uL (150-450); RBC 4.53 m/uL (3.80-5.40); RDW 12.7 % (11.5-15.5)
--- NOTE | 2022-08-08 18:47 | US ---
EXAMINATION TYPE: US venous doppler duplex LE RT DATE OF EXAM: 08/08/2022 4:29 PM COMPARISON: 10/22/2020 CLINICAL HISTORY: Right lower leg pain. SIDE PERFORMED: Right TECHNIQUE: The lower extremity deep venous system is examined utilizing real time linear array sonog ethel with graded compression, doppler sonography and color-flow sonography. VESSELS IMAGED: Common Femoral Vein Deep Femoral Vein Greater Saphenous Vein * Femoral Vein Popliteal Vein Small Saphenous Vein * Proximal Calf Veins (* superficial vessels) Right Leg: Negative for DVT IMPRESSION: No evidence of deep vein thrombosis in the right leg.
[2022-08-08 18:51] LABS: Potassium 4.6 mmol/L (3.5-5.1)
[2022-08-08] MEDS ORDERED: methylPREDNISolone SOD SUCCI 125 MG/2 ML VIAL IV STA (19:00)
[2022-08-08] MEDS ORDERED: HYDROmorphone 0.5 MG/0.5 ML SYRINGE IVP STA (19:12)
[2022-08-08 20:18] VITALS: PULSE 80
[2022-08-08 20:41] VITALS: BP 140/79; RESP 18
== END 2022-08-08 20:47 | disposition home or self-care (01) ==
LOC: EC 16:00
DX: J45.901 Unspecified asthma with (acute) exacerbation (principal); J10.1 Influenza due to other identified influenza virus with other respiratory manifestations; J44.9 Chronic obstructive pulmonary disease, unspecified; Z20.822 Contact with and (suspected) exposure to COVID-19; Z79.82 Long term (current) use of aspirin; Z91.010 Allergy to peanuts; Z90.49 Acquired absence of other specified parts of digestive tract; Z86.718 Personal history of other venous thrombosis and embolism; Z79.899 Other long term (current) drug therapy
CPT/HCPCS: 36415; 94640; 85379; 80053; 83735; 84484; 85025; 85610; 85730; 87636; 71046; 93971; 99285; 96374; 96375; 96361; J2930; J3360; J2405; J1885; J1170

== ENCOUNTER 2022-08-14 02:16 | Emergency (ER) | payer OTHER ==
[2022-08-14 02:29] VITALS: TEMP 98.4
[2022-08-14] MEDS ORDERED: KETOROLAC 15 MG/ML 1 ML VIAL IVP STA (02:48)
[2022-08-14] MEDS ORDERED: ONDANSETRON 4 MG/2 ML VIAL IVP STA (02:48)
--- NOTE | 2022-08-14 03:26 | ED ---
Abdominal Pain HPI - General Chief Complaint: Abdominal Pain Stated Complaint: Back pain Time Seen by Provider: 08/14/22 02:41 Source: patient Mode of arrival: ambulatory Limitations: no limitations - History of Present Illness Initial Comments: Patient is a 27-year-old female presenting with chief complaint of right-sided flank pain. Pain is been ongoing for about 48 hours. 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 She denies any dysuria, hematuria, urgency, frequency. Patient was also recently diagnosed with influenza A, is continuing to have some URI like symptoms and has had occasional fevers. No history of kidney stones. No abdominal pain. She admits to nausea and vomiting. - Related Data Home Medications Medication Instructions Recorded Confirmed Zonisamide 100 mg PO BID@1200,2100 04/06/15 08/08/22 Butalb/APAP/Caff 50-325-40Mg 1 tab PO Q6H PRN 10/05/18 08/08/22 [Fioricet 50-325-40] Galcanezumab-Gnlm [Emgality Pen] 120 mg SQ Q30D 03/21/19 08/08/22 HYDROcodone/APAP 10-325MG [[place] 1 tab PO TID 07/04/20 08/08/22 10-325] Montelukast Sodium [Singulair] 10 mg PO HS 07/04/20 08/08/22 Levothyroxine Sodium [Synthroid] 50 mcg PO DAILY 08/04/20 08/08/22 Ocrevus 1 dose IV Q180D 10/15/20 08/08/22 Albuterol Sulfate [Proventil Hfa] 2 puff INHALATION RT-QID PRN 10/25/20 08/08/22 Baclofen [Lioresal] 20 mg PO TID 10/25/20 08/08/22 Oxybutynin Chloride [Oxybutynin 10 mg PO HS 10/25/20 08/08/22 Chloride ER] Gabapentin 600 mg PO QID 01/15/21 08/08/22 Aspirin EC [Ecotrin Low Dose] 81 mg PO DAILY 04/28/21 08/08/22 Omeprazole 40 mg PO BID 04/28/21 08/08/22 Ondansetron Odt [Zofran ODT] 4 mg PO Q12H PRN 04/28/21 08/08/22 Multivit with Calcium,Iron,Min 1 tab PO DAILY 06/26/21 08/08/22 [Women's Multivitamin] hydrOXYzine pamoate [Vistaril] 50 mg PO TID 08/21/21 08/08/22 Desvenlafaxine [Pristiq ER] 100 mg PO DAILY 01/03/22 08/08/22 Promethazine [Phenergan] 12.5 mg PO BID PRN 01/03/22 08/08/22 busPIRone HCL 15 mg PO QID 01/03/22 08/08/22 Cholecalciferol [Vitamin D3 (25 50 mcg PO DAILY 08/08/22 08/08/22 Mcg = 1000 Iu)] Fluticasone Propionate [Flovent 2 puff INHALATION RT-BID PRN 08/08/22 08/08/22 Hfa 220 mcg] Loratadine 10 mg PO DAILY 08/08/22 08/08/22 Meclizine [Antivert] 25 mg PO BID PRN 08/08/22 08/08/22 Propranolol [Inderal] 20 mg PO BID 08/08/22 08/08/22 Ubrogepant [Ubrelvy] 100 mg PO BID PRN 08/08/22 08/08/22 buPROPion XL [Wellbutrin XL] 150 mg PO DAILY 08/08/22 08/08/22 Previous Rx's Medication Instructions Recorded Sucralfate [Carafate] 1 gm PO BID #60 tablet 08/22/21 predniSONE 50 mg PO DAILY 5 Days #5 tablet 08/08/22 Cyclobenzaprine [Flexeril] 10 mg PO HS PRN #20 tab 08/14/22 Lidocaine 5% Patch [Lidoderm 5% 1 patch TOPICAL DAILY PRN #1 pack 08/14/22 Patch] methylPREDNISolone Dose Pack 4 mg PO DIRECTED #1 packet 08/14/22 [Medrol Dose Pack] Allergies Allergy/AdvReac Type Severity Reaction Status Date / Time codeine Allergy Anaphylaxis Verified 08/14/22 02:29 peanut Allergy Anaphylaxis Verified 08/14/22 02:29 aspartame AdvReac Diarrhea Verified 08/14/22 02:29 fingolimod [From [employer]] AdvReac Abdominal Verified 08/14/22 02:29 Pain ibuprofen AdvReac Abdominal Verified 08/14/22 02:29 Pain lactose AdvReac Nausea & Verified 08/14/22 02:29 Vomiting & Diarrhea Review of Systems ROS Statement: Those systems with pertinent positive or pertinent negative responses have been documented in the HPI. ROS Other: All systems not noted in ROS Statement are negative. 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, Multiple Sclerosis dx November 2018, pt states left leg weak and uses walker ., Bladder retention, frequent flares with panniculitis (worse since weight loss); SEE DR NICK'S HISTORY REGARDING CARDIAC HISTORY History of Any Multi-Drug Resistant Organisms: MRSA Date of last positivie culture/infection: 11/08/17 MDRO Source:: LT INNER THIGH Past Surgical History: Bariatric Surgery, Cholecystectomy, Ear Surgery Additional Past Surgical History / Comment(s): tubes in ears, EGD, laparoscopic kimberly-en-y 02-08-2018 , EGD with dilation Past Anesthesia/Blood Transfusion Reactions: No Reported Reaction Past Psychological History: Anxiety, Depression, PTSD Smoking Status: Never smoker - Past Family History Mother Family Medical History: Diabetes Mellitus Father Family Medical History: Unable to Obtain General Exam Limitations: no limitations General appearance: alert, in no apparent distress Head exam: Present: atraumatic, normocephalic, normal inspection Eye exam: Present: normal appearance Neck exam: Present: normal inspection, full ROM Respiratory exam: Present: normal lung sounds bilaterally. Absent: respiratory distress, wheezes, rales, rhonchi, stridor Cardiovascular Exam: Present: regular rate, normal rhythm, normal heart sounds. Absent: systolic murmur, diastolic murmur, rubs, gallop, clicks Back exam: Present: CVA tenderness (R). Absent: CVA tenderness (L) Neurological exam: Present: alert, oriented X3, CN II-XII intact Psychiatric exam: Present: normal affect, normal mood Skin exam: Present: warm, dry, intact, normal color. Absent: rash Course Vital Signs 08/14/22 08/14/22 02:26 05:49 Temperature 98.4 F Pulse Rate 91 98 Respiratory 16 18 Rate Blood Pressure 142/90 135/76 O2 Sat by Pulse 97 97 Oximetry Medical Decision Making - Medical Decision Making Was pt. sent in by a medical professional or institution (, ROBSON, HUSBANDRY TECHNICIAN, urgent care, hospital, or long-term...) When possible be specific @ -No Did you speak to anyone other than the patient for history (EMS, parent, family, police, friend...)? What history was obtained from this source @ -No Did you review nursing and triage notes (agree or disagree)? Why? @ -I reviewed and agree with nursing and triage notes Were old charts reviewed (outside hosp., previous admission, EMS record, old EKG, old radiological studies, urgent care reports/EKG's, long-term records)? Report findings @ -No old charts were reviewed Differential Diagnosis (chest pain, altered mental status, abdominal pain women, abdominal pain men, vaginal bleeding, weakness, fever, dyspnea, syncope, headache, dizziness, GI bleed, back pain, seizure, CVA, palpatations, mental health, musculoskeletal)? @ - MDM Differential Back Pain: Strain, zoster, cauda equina syndrome, epidural abscess, vertebral osteomyelitis, discitis, fracture, subluxation, disc herniation, DJD, spinal stenosis, dissection, AAA, pancreatitis, peptic ulcer disease, pyelonephritis, kidney stone this is not meant to be an all-inclusive list. EKG interpreted by me (3pts min.). @ -As above X-rays interpreted by me (1pt min.). @ -None done CT interpreted by me (1pt min.). @ -None done U/S interpreted by me (1pt. min.). @ -None done What testing was considered but not performed or refused? (CT, X-rays, U/S, labs)? Why? @ -None What meds were considered but not given or refused? Why? @ -None Did you discuss the management of the patient with other professionals (professionals i.e. , ROBSON, HUSBANDRY TECHNICIAN, lab, RT, psych nurse, 7th grade social studies teacher, hog stomach preparer, teacher, surveillance sensor officer, case work aide)? Give summary @ -No Was smoking cessation discussed for >3mins.? @ -No Was critical care preformed (if so, how long)? @ -No Were there social determinants of health that impacted care today? How? (Homelessness, low income, unemployed, alcoholism, drug addiction, transportation, low edu. Level, literacy, decrease access to med. care, [facility], rehab)? @ -No Was there de-escalation of care discussed even if they declined (Discuss DNR or withdrawal of care, Hospice)? DNR status @ -No What co-morbidities impacted this encounter? (DM, HTN, Smoking, COPD, CAD, Cancer, CVA, ARF, Chemo, Hep., AIDS, mental health diagnosis, sleep apnea, morbid obesity)? @ -None Was patient admitted / discharged? Hospital course, mention meds given and route, prescriptions, significant lab abnormalities, going to OR and other pertinent info. @ -Discharged. Patient is 27-year-old female presenting with chief complaint of right-sided back pain has been ongoing for about 2 days. No urinary symptoms. Urine is negative for any bleeding or infectious process. HCG is negative. Patient responded well to Toradol. She is also given a dose of Norflex, Decadron, and lidocaine patch. She is educated on supportive treatment for mechanical back pain. Follow-up with PCP. Report back to ER with any new or worsening symptoms. Discussed return parameters and answered all questions. Patient conveyed verbal understanding and agreed to the plan. I discussed this case in detail with my attending Dr. Terrell Undiagnosed new problem with uncertain prognosis? @ -No Drug Therapy requiring intensive monitoring for toxicity (Heparin, Nitro, Insulin, Cardizem)? @ -No Were any procedures done? @ -No Diagnosis/symptom? @ -Back pain Acute, or Chronic, or Acute on Chronic? @ -Acute Uncomplicated (without systemic symptoms) or Complicated (systemic symptoms)? @ -Uncomplicated Side effects of treatment? @ -No Exacerbation, Progression, or Severe Exacerbation? @ -No Poses a threat to life or bodily function? How? (Chest pain, USA, ID, pneumonia, PE, COPD, DKA, ARF, appy, cholecystitis, CVA, Diverticulitis, Homicidal, Suicidal, threat to staff... and all critical care pts) @ -No - Lab Data Lab Results 08/14/22 08/14/22 Range/Units 02:54 02:54 Urine Color Yellow Urine Appearance Cloudy H (Clear) Urine pH 6.0 (5.0-8.0) Ur Specific [place] 1.034 (1.001-1.035) Urine Protein 1+ H (Negative) Urine Glucose (UA) Negative (Negative) Urine Ketones Negative (Negative) Urine Blood Negative (Negative) Urine Nitrite Negative (Negative) Urine Bilirubin Negative (Negative) Urine Urobilinogen 2.0 (<2.0) mg/dL Ur Leukocyte Esterase Trace H (Negative) Urine RBC <1 (0-5) /hpf Urine WBC 3 (0-5) /hpf Ur Squamous Epith Cells 9 H (0-4) /hpf Urine Bacteria Rare H (None) /hpf Urine Mucus Occasional H (None) /hpf Urine HCG, Qual Not Detected (Not Detectd) Disposition Clinical Impression: Back pain Disposition: HOME SELF-CARE Condition: Good Instructions (If sedation given, give patient instructions): Back Pain (ED) Additional Instructions: Follow-up with PCP. Report back to ER with any new or worsening symptoms. Take Motrin and Tylenol as needed for pain control. Take medication as prescribed, do not take cyclobenzaprine before driving or operating heavy machinery as it may cause drowsiness. Prescriptions: Cyclobenzaprine [Flexeril] 10 mg PO HS PRN #20 tab PRN Reason: Spasms Lidocaine 5% Patch [Lidoderm 5% Patch] 1 patch TOPICAL DAILY PRN #1 pack PRN Reason: Pain methylPREDNISolone Dose Pack [Medrol Dose Pack] 4 mg PO DIRECTED #1 packet Is patient prescribed a controlled substance at d/c from ED?: No Referrals: Parminder Torres DO [Primary Care Provider] - 1-2 days Time of Disposition: 04:09
[2022-08-14 03:54] LABS: Appearance,Urine Cloudy (Clear); Bacteria,Urine Rare /hpf; Bilirubin,Urine Negative (Negative); Blood,Urine Negative (Negative); Color,Urine Yellow; Glucose,Urine (UA) Negative (Negative); Ketones,Urine Negative (Negative); Leukocyte Esterase,Urine Trace (Negative); Mucus,Urine Occasional /hpf; Nitrite,Urine Negative (Negative); Protein,Urine 1+ (Negative); RBC,Urine <1 /hpf (0-5); Specific Gravity,Urine 1.034 (1.001-1.035); Squamous Epithelial Cell,Urine 9 /hpf (0-4); WBC,Urine 3 /hpf (0-5)
[2022-08-14] MEDS ORDERED: DEXAMETHASONE SOD PHOSPHATE 10 MG/ML 1 ML VIAL IVP STA (04:05)
[2022-08-14] MEDS ORDERED: ORPHENADRINE 30 MG/ML 2 ML VIAL IVP STA (04:05)
[2022-08-14 05:50] VITALS: BP 135/76; PULSE 98; RESP 18
[2022-08-14] MEDS ORDERED: LIDOCAINE 5% PATCH TOPICAL SCH (09:00)
== END 2022-08-14 05:49 | disposition home or self-care (01) ==
LOC: EC 02:16
DX: M54.9 Dorsalgia, unspecified (principal); J45.909 Unspecified asthma, uncomplicated; F41.9 Anxiety disorder, unspecified; F32.A Depression, unspecified; Z86.711 Personal history of pulmonary embolism; Z79.82 Long term (current) use of aspirin; Z79.899 Other long term (current) drug therapy; Z88.5 Allergy status to narcotic agent; Z91.010 Allergy to peanuts; Z91.018 Allergy to other foods; Z88.6 Allergy status to analgesic agent; Z91.011 Allergy to milk products; Z88.8 Allergy status to other drugs, medicaments and biological substances
CPT/HCPCS: 81001; 81025; 99284; 96374; 96375 ×3; J1100; J2360; J2405; J1885

== ENCOUNTER 2022-10-14 09:14 | Emergency (ER) | payer OTHER ==
[2022-10-14 09:19] VITALS: RESP 18
[2022-10-14] MEDS ORDERED: SODIUM CHLORIDE 0.9% 1,000 ML IV STA (09:36)
[2022-10-14 10:16] LABS: Basophils % (A) 1 %; Eosinophils # (A) 0.4 k/uL (0-0.7); Eosinophils % (A) 6 %; HGB 13.1 gm/dL (11.4-16.0); Lymphocytes # (A) 1.9 k/uL (1.0-4.8); Lymphocytes % (A) 30 %; MCH 31.1 pg (25.0-35.0); MCHC 33.7 g/dL (31.0-37.0); MCV 92.5 fL (80.0-100.0); Mean Platelet Volume 9.7; Monocytes # (A) 0.3 k/uL (0-1.0); Monocytes % (A) 4 %; Neutrophils # (A) 3.6 k/uL (1.3-7.7); Neutrophils % (A) 57 %; Platelet Count 251 k/uL (150-450); RBC 4.22 m/uL (3.80-5.40); RDW 12.7 % (11.5-15.5); WBC 6.3 k/uL (3.8-10.6)
[2022-10-14 10:32] LABS: ALT 20 U/L (4-34); AST 24 U/L (14-36); African American GFR (CKD) >90 (>60 ml/min/1.73 sqM); Albumin 4.1 g/dL (3.5-5.0); Alkaline Phosphatase 70 U/L (38-126); Anion Gap 11 mmol/L; Blood Urea Nitrogen 11 mg/dL (7-17); Calcium 9.1 mg/dL (8.4-10.2); Carbon Dioxide 20 mmol/L (22-30); Chloride 109 mmol/L (98-107); Glucose 92 mg/dL (74-99); Non-African American GFR(CKD) >90 (>60 ml/min/1.73 sqM); Potassium 4.3 mmol/L (3.5-5.1); Sodium 140 mmol/L (137-145); Total Bilirubin 0.3 mg/dL (0.2-1.3); Total Protein 6.2 g/dL (6.3-8.2)
--- NOTE | 2022-10-14 10:34 | ED ---
General Adult HPI - General Chief complaint: Syncope Stated complaint: Syncope, head injury Time Seen by Provider: 10/14/22 09:31 Source: patient, RN notes reviewed Mode of arrival: ambulatory Limitations: no limitations - History of Present Illness Initial comments: 27-year-old female presents emergency Department chief complaint of syncopal episode. Patient states she has POTS, and which she was going to the bathroom states that she started Thursday lightheaded, dizzy states that she woke up on the floor strike her head on the wall in front of her. She complains of head neck pain. Patient does see cardiology. Patient states she feels she may behind in her fluids. Denies any fevers or chills no abdominal pain has any chest pain or shortness of breath. - Related Data Home Medications Medication Instructions Recorded Confirmed Zonisamide 100 mg PO BID@1200,2100 04/06/15 08/08/22 Butalb/APAP/Caff 50-325-40Mg 1 tab PO Q6H PRN 10/05/18 08/08/22 [Fioricet 50-325-40] Galcanezumab-Gnlm [Emgality Pen] 120 mg SQ Q30D 03/21/19 08/08/22 HYDROcodone/APAP 10-325MG [[place] 1 tab PO TID 07/04/20 08/08/22 10-325] Montelukast Sodium [Singulair] 10 mg PO HS 07/04/20 08/08/22 Levothyroxine Sodium [Synthroid] 50 mcg PO DAILY 08/04/20 08/08/22 Ocrevus 1 dose IV Q180D 10/15/20 08/08/22 Albuterol Sulfate [Proventil Hfa] 2 puff INHALATION RT-QID PRN 10/25/20 08/08/22 Baclofen [Lioresal] 20 mg PO TID 10/25/20 08/08/22 Oxybutynin Chloride [oxyBUTYnin 10 mg PO HS 10/25/20 08/08/22 chloride ER] Gabapentin 600 mg PO QID 01/15/21 08/08/22 Aspirin EC [Ecotrin Low Dose] 81 mg PO DAILY 04/28/21 08/08/22 Omeprazole 40 mg PO BID 04/28/21 08/08/22 Ondansetron Odt [Zofran ODT] 4 mg PO Q12H PRN 04/28/21 08/08/22 Multivit with Calcium,Iron,Min 1 tab PO DAILY 06/26/21 08/08/22 [Women's Multivitamin] hydrOXYzine pamoate [Vistaril] 50 mg PO TID 08/21/21 08/08/22 Desvenlafaxine [Pristiq ER] 100 mg PO DAILY 01/03/22 08/08/22 Promethazine [Phenergan] 12.5 mg PO BID PRN 01/03/22 08/08/22 busPIRone HCL 15 mg PO QID 01/03/22 08/08/22 Cholecalciferol [Vitamin D3 (25 50 mcg PO DAILY 08/08/22 08/08/22 Mcg = 1000 Iu)] Fluticasone Propionate [Flovent 2 puff INHALATION RT-BID PRN 08/08/22 08/08/22 Hfa 220 mcg] Loratadine 10 mg PO DAILY 08/08/22 08/08/22 Meclizine [Antivert] 25 mg PO BID PRN 08/08/22 08/08/22 Propranolol [Inderal] 20 mg PO BID 08/08/22 08/08/22 Ubrogepant [Ubrelvy] 100 mg PO BID PRN 08/08/22 08/08/22 buPROPion XL [Wellbutrin XL] 150 mg PO DAILY 08/08/22 08/08/22 Previous Rx's Medication Instructions Recorded Sucralfate [Carafate] 1 gm PO BID #60 tablet 08/22/21 predniSONE 50 mg PO DAILY 5 Days #5 tablet 08/08/22 Cyclobenzaprine [Flexeril] 10 mg PO HS PRN #20 tab 08/14/22 Lidocaine 5% Patch [Lidoderm 5% 1 patch TOPICAL DAILY PRN #1 pack 08/14/22 Patch] methylPREDNISolone Dose Pack 4 mg PO DIRECTED #1 packet 08/14/22 [Medrol Dose Pack] Allergies Allergy/AdvReac Type Severity Reaction Status Date / Time codeine Allergy Anaphylaxis Verified 10/14/22 09:19 peanut Allergy Anaphylaxis Verified 10/14/22 09:19 aspartame AdvReac Diarrhea Verified 10/14/22 09:19 fingolimod [From [employer]] AdvReac Abdominal Verified 10/14/22 09:19 Pain ibuprofen AdvReac Abdominal Verified 10/14/22 09:19 Pain lactose AdvReac Nausea & Verified 10/14/22 09:19 Vomiting & Diarrhea Review of Systems ROS Statement: Those systems with pertinent positive or pertinent negative responses have been documented in the HPI. ROS Other: All systems not noted in ROS Statement are negative. 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, Multiple Sclerosis dx November 2018, pt states left leg weak and uses walker ., Bladder retention, frequent flares with panniculitis (worse since weight loss); SEE DR NICK'S HISTORY REGARDING CARDIAC HISTORY History of Any Multi-Drug Resistant Organisms: MRSA Date of last positivie culture/infection: 11/08/17 MDRO Source:: LT INNER THIGH Past Surgical History: Bariatric Surgery, Cholecystectomy, Ear Surgery Additional Past Surgical History / Comment(s): tubes in ears, EGD, laparoscopic kimberly-en-y 02-08-2018 , EGD with dilation Past Anesthesia/Blood Transfusion Reactions: No Reported Reaction Past Psychological History: Anxiety, Depression, PTSD Smoking Status: Never smoker Past Alcohol Use History: None Reported Past Drug Use History: None Reported - Past Family History Mother Family Medical History: Diabetes Mellitus Father Family Medical History: Unable to Obtain General Exam Limitations: no limitations General appearance: alert, in no apparent distress Head exam: Present: atraumatic, normocephalic, normal inspection Eye exam: Present: normal appearance, PERRL, EOMI. Absent: scleral icterus, conjunctival injection, periorbital swelling ENT exam: Present: normal exam, normal oropharynx, mucous membranes moist Neck exam: Present: normal inspection, full ROM. Absent: tenderness, meningismus, lymphadenopathy Respiratory exam: Present: normal lung sounds bilaterally. Absent: respiratory distress, wheezes, rales, rhonchi, stridor Cardiovascular Exam: Present: regular rate, normal rhythm, normal heart sounds. Absent: systolic murmur, diastolic murmur, rubs, gallop, clicks Neurological exam: Present: alert, oriented X3, CN II-XII intact, reflexes normal. Absent: motor sensory deficit Skin exam: Present: warm, dry, intact, normal color. Absent: rash Course Vital Signs 10/14/22 10/14/22 09:16 11:10 Temperature 98.3 F 98.4 F Pulse Rate 60 62 Respiratory 18 18 Rate Blood Pressure 134/87 135/80 O2 Sat by Pulse 99 97 Oximetry EKG Findings - EKG Comments: EKG Findings:: EKG performed at 9:26 sinus rhythm with rate of 61 LA 180/100 QT/QTC 416/419 - EKG Results: EKG: interpreted by BLAIRE Medical Decision Making - Medical Decision Making Was pt. sent in by a medical professional or institution (, PA, CHAIR AND COUCH MAKER, urgent care, hospital, or prison...) When possible be specific @ -No Did you speak to anyone other than the patient for history (EMS, parent, family, police, friend...)? What history was obtained from this source @ -No Did you review nursing and triage notes (agree or disagree)? Why? @ -I reviewed and agree with nursing and triage notes Were old charts reviewed (outside hosp., previous admission, EMS record, old EKG, old radiological studies, urgent care reports/EKG's, prison records)? Report findings @ -No old charts were reviewed Differential Diagnosis (chest pain, altered mental status, abdominal pain women, abdominal pain men, vaginal bleeding, weakness, fever, dyspnea, syncope, headache, dizziness, GI bleed, back pain, seizure, CVA, palpatations, mental health, musculoskeletal)? @ -Differential Syncope: Valvular disease, hypertrophic cardiomyopathy, pulmonary embolism, tamponade, tachycardia, bradycardia, NV, hypovolemia, hemorrhage, dissection, anemia, intracranial hemorrhage, seizure, hypoglycemia, carbon monoxide poisoning, this is not meant to be an all-inclusive list.le EKG interpreted by me (3pts min.). @ -As above X-rays interpreted by me (1pt min.). @ -None done CT interpreted by me (1pt min.). @ -CT brain, C-spine shows no acute intracranial hemorrhage, skull fracture, cervical fracture U/S interpreted by me (1pt. min.). @ -None done What testing was considered but not performed or refused? (CT, X-rays, U/S, labs)? Why? @ -None What meds were considered but not given or refused? Why? @ -None Did you discuss the management of the patient with other professionals (professionals i.e. DrGennaro, PA, CHAIR AND COUCH MAKER, lab, RT, psych nurse, manager social services, furniture upholsterer apprentice, teacher, medical laboratory technical officer, casework manager)? Give summary @ -No Was smoking cessation discussed for >3mins.? @ -No Was critical care preformed (if so, how long)? @ -No Were there social determinants of health that impacted care today? How? (Homelessness, low income, unemployed, alcoholism, drug addiction, transportation, low edu. Level, literacy, decrease access to med. care, longterm, rehab)? @ -No Was there de-escalation of care discussed even if they declined (Discuss DNR or withdrawal of care, Hospice)? DNR status @ -No What co-morbidities impacted this encounter? (DM, HTN, Smoking, COPD, CAD, Cancer, CVA, ARF, Chemo, Hep., AIDS, mental health diagnosis, sleep apnea, morbid obesity)? @ -POTS, recurrent syncope Was patient admitted / discharged? Hospital course, mention meds given and route, prescriptions, significant lab abnormalities, going to OR and other pertinent info. @ -Discharge patient was hydrated, feels greatly improved she is asymptomatic workup is negative this time she's had multiple syncopal episodes in the past she is stable for discharge with follow-up with cardiology Undiagnosed new problem with uncertain prognosis? @ -No Drug Therapy requiring intensive monitoring for toxicity (Heparin, Nitro, Insulin, Cardizem)? @ -No Were any procedures done? @ -No Diagnosis/symptom? @ -Syncope Acute, or Chronic, or Acute on Chronic? @ -Acute Uncomplicated (without systemic symptoms) or Complicated (systemic symptoms)? @ -Uncomplicated Side effects of treatment? @ -No Exacerbation, Progression, or Severe Exacerbation? @ -No Poses a threat to life or bodily function? How? (Chest pain, USA, NV, pneumonia, PE, COPD, DKA, ARF, appy, cholecystitis, CVA, Diverticulitis, Homicidal, Suicidal, threat to staff... and all critical care pts) @ -No - Lab Data Result diagrams: 10/14/22 09:59 10/14/22 09:59 Lab Results 10/14/22 10/14/22 Range/Units 09:59 09:59 WBC 6.3 (3.8-10.6) k/uL RBC 4.22 (3.80-5.40) m/uL Hgb 13.1 (11.4-16.0) gm/dL Hct 39.0 (34.0-46.0) % MCV 92.5 (80.0-100.0) fL MCH 31.1 (25.0-35.0) pg MCHC 33.7 (31.0-37.0) g/dL RDW 12.7 (11.5-15.5) % Plt Count 251 (150-450) k/uL MPV 9.7 Neutrophils % 57 % Lymphocytes % 30 % Monocytes % 4 % Eosinophils % 6 % Basophils % 1 % Neutrophils # 3.6 (1.3-7.7) k/uL Lymphocytes # 1.9 (1.0-4.8) k/uL Monocytes # 0.3 (0-1.0) k/uL Eosinophils # 0.4 (0-0.7) k/uL Basophils # 0.0 (0-0.2) k/uL Sodium 140 (137-145) mmol/L Potassium 4.3 (3.5-5.1) mmol/L Chloride 109 H (98-107) mmol/L Carbon Dioxide 20 L (22-30) mmol/L Anion Gap 11 mmol/L BUN 11 (7-17) mg/dL Creatinine 0.68 (0.52-1.04) mg/dL Est GFR (CKD-EPI)AfAm >90 (>60 ml/min/1.73 sqM) Est GFR (CKD-EPI)NonAf >90 (>60 ml/min/1.73 sqM) Glucose 92 (74-99) mg/dL Calcium 9.1 (8.4-10.2) mg/dL Total Bilirubin 0.3 (0.2-1.3) mg/dL AST 24 (14-36) U/L ALT 20 (4-34) U/L Alkaline Phosphatase 70 (38-126) U/L Total Protein 6.2 L (6.3-8.2) g/dL Albumin 4.1 (3.5-5.0) g/dL Disposition Clinical Impression: Syncope Disposition: HOME SELF-CARE Condition: Stable Instructions (If sedation given, give patient instructions): Syncope (ED) Additional Instructions: Please return to the Emergency Department if symptoms worsen or any other concerns. Is patient prescribed a controlled substance at d/c from ED?: No Referrals: Parminder Torres DO [Primary Care Provider] - 1-2 days Time of Disposition: 11:02
--- NOTE | 2022-10-14 10:41 | CT ---
EXAMINATION TYPE: CT brain jaden weber DATE OF EXAM: 10/14/2022 COMPARISON: 12/06/2021 HISTORY: Syncope, trauma CT DLP: 1908.[address] Brain: Unenhanced CT of the brain was performed. The ventricles, basal cisterns and sulci overlying the cerebral convexities demonstrate a normal appe arance. There is no evidence for intracranial hemorrhage or sulcal effacement. No mass effects are seen. If symptoms persist consider MRI. Osseous calvarium is intact. IMPRESSION: No acute intracranial process CT Cervical Spine: Unenhanced CT of the cervical spine was performed with bone and soft tissue window settings submitted . Coronal and sagittal reconstruction is obtained. There is normal alignment and prevertebral soft tissues. I do not see evidence for fracture or sublu xation. No significant degenerative changes are present. The lung apices are clear. IMPRESSION: No evidence for acute fracture or subluxation of the cervical spine.
[2022-10-14 11:13] VITALS: BP 135/80; PULSE 62; TEMP 98.4
[2022-10-14] MEDS ORDERED: KETOROLAC 15 MG/ML 1 ML VIAL IVP STA (11:28)
== END 2022-10-14 11:36 | disposition home or self-care (01) ==
LOC: EC 09:14
DX: R55 Syncope and collapse (principal); J45.909 Unspecified asthma, uncomplicated; Z86.718 Personal history of other venous thrombosis and embolism; F41.9 Anxiety disorder, unspecified; F32.A Depression, unspecified; Z86.711 Personal history of pulmonary embolism; Z88.6 Allergy status to analgesic agent; Z91.010 Allergy to peanuts; Z88.5 Allergy status to narcotic agent; Z91.011 Allergy to milk products; Z88.8 Allergy status to other drugs, medicaments and biological substances; Z79.82 Long term (current) use of aspirin; Z79.899 Other long term (current) drug therapy
CPT/HCPCS: 99284 ×2; 96374 ×2; 96361 ×2; 36415; 93005; 80053; 85025; 72125; 70450; J1885

== ENCOUNTER → 2022-11-12 | Outpatient (CLI) | payer OTHER ==
[2022-11-13 02:19] LABS: Basophils # (A) 0.05 X 10*3/uL (0.00-0.10); Basophils % (A) 0.9 %; Eosinophils # (A) 0.21 X 10*3/uL (0.04-0.35); Eosinophils % (A) 3.7 %; HCT 38.3 % (37.2-46.3); HGB 12.4 d/dL (12.0-15.0); Lymphocytes # (A) 1.49 X 10*3/uL (0.90-5.00); Lymphocytes % (A) 26.2 %; MCH 30.4 pg (27.0-32.0); MCHC 32.4 d/dL (32.0-37.0); MCV 93.9 FL (80.0-97.0); Mean Platelet Volume 12.5 FL (9.5-12.2); Monocytes # (A) 0.38 X 10*3/uL (0.20-1.00); Monocytes % (A) 6.7 %; NRBC Per 100 WBC 0 X 10*3/uL (0.00-0.01); Neutrophils # (A) 3.54 X 10*3/uL (1.80-7.70); Neutrophils % (A) 62.3 %; Platelet Count 269 X 10*3/uL (140-440); RBC 4.08 X 10*6/uL (4.10-5.20); RDW 12.5 % (11.5-14.5); WBC 5.68 X 10*3/uL (4.50-10.00)
[2022-11-13 02:45] LABS: ALT 40 U/L (8-44); AST 28 U/L (13-35); Albumin 4.2 d/dL (3.8-4.9); Alkaline Phosphatase 82 U/L (41-126); BUN/Creat Ratio 14.88 Ratio (12.00-20.00); Blood Urea Nitrogen 11.9 mg/dL (9.0-27.0); Calcium 9.6 mg/dL (8.7-10.3); Carbon Dioxide 21.2 mmol/L (21.6-31.8); Chloride 110 mmol/L (96-109); Globulin 1.5 d/dL (1.6-3.3); Glucose 98 mg/dL (70-110); Potassium 4.4 mmol/L (3.5-5.5); Sodium 142 mmol/L (135-145); T4, Free (Free Thyroxine) 0.99 ng/dL (0.80-1.80); Total Bilirubin 0.2 mg/dL (0.3-1.2); Total Protein 5.7 d/dL (6.2-8.2)
== END | disposition home or self-care (01) ==
LOC: LABWHC1 16:24
PROVIDERS: ATTEND Nurse Practitioner Family
DX: E53.9 Vitamin B deficiency, unspecified (principal); E55.9 Vitamin D deficiency, unspecified; G35 Multiple sclerosis; R53.83 Other fatigue; R20.8 Other disturbances of skin sensation; R19.5 Other fecal abnormalities
CPT/HCPCS: 36415; 80053; 82306; 82607; 84207; 84439; 84443; 84480; 85025

== ENCOUNTER 2022-11-19 17:09 | Emergency (ER) | payer OTHER ==
[2022-11-19 17:14] VITALS: TEMP 98.3
[2022-11-19 17:42] LABS: Basophils % (A) 0 %; Eosinophils # (A) 0.2 k/uL (0-0.7); Eosinophils % (A) 3 %; HCT 38.7 % (34.0-46.0); HGB 13.1 gm/dL (11.4-16.0); Lymphocytes # (A) 1.4 k/uL (1.0-4.8); Lymphocytes % (A) 24 %; MCH 31.3 pg (25.0-35.0); MCHC 33.9 g/dL (31.0-37.0); MCV 92.4 fL (80.0-100.0); Mean Platelet Volume 8.9; Monocytes # (A) 0.2 k/uL (0-1.0); Monocytes % (A) 3 %; Neutrophils # (A) 4.2 k/uL (1.3-7.7); Neutrophils % (A) 69 %; Platelet Count 275 k/uL (150-450); RBC 4.19 m/uL (3.80-5.40); RDW 12.2 % (11.5-15.5)
[2022-11-19 17:52] LABS: Partial Thromboplastin Time 22.6 sec (22.0-30.0); Prothrombin Time 10.2 sec (9.0-12.0)
[2022-11-19 17:54] LABS: ALT 25 U/L (4-34); AST 22 U/L (14-36); African American GFR (CKD) >90 (>60 ml/min/1.73 sqM); Albumin 4.1 g/dL (3.5-5.0); Alkaline Phosphatase 78 U/L (38-126); Anion Gap 7 mmol/L; Blood Urea Nitrogen 10 mg/dL (7-17); Calcium 9.5 mg/dL (8.4-10.2); Carbon Dioxide 19 mmol/L (22-30); Chloride 111 mmol/L (98-107); Glucose 105 mg/dL (74-99); Magnesium 1.8 mg/dL (1.6-2.3); Non-African American GFR(CKD) >90 (>60 ml/min/1.73 sqM); Potassium 4.1 mmol/L (3.5-5.1); Sodium 137 mmol/L (137-145); Total Bilirubin 0.3 mg/dL (0.2-1.3); Total Protein 6.3 g/dL (6.3-8.2)
--- NOTE | 2022-11-19 17:54 | XR ---
EXAMINATION TYPE: XR chest 2V DATE OF EXAM: 11/19/2022 5:45 PM COMPARISON: Chest radiographs from 08/08/2022 TECHNIQUE: XR chest 2V Frontal and lateral views of the chest. CLINICAL INDICATION:Female, 27 years old with history of dysrhythmia; FINDINGS: Lungs/Pleura: There is no evidence of pleural effusion, focal consolidation, or pneumothorax. Pulmonary vascularity: Unremarkable. Heart/mediastinum: Cardiomediastinal silhouette is unremarkable. Musculoskeletal: No acute osseous pathology. IMPRESSION: No acute cardiopulmonary disease/process.
[2022-11-19 21:02] VITALS: RESP 18
[2022-11-19] MEDS ORDERED: MAGNESIUM SULFATE-D5W PMX 1 GM in DEXTROSE/WATER 1 100ML.BAG IVPB ONE (21:25)
[2022-11-19] MEDS ORDERED: SODIUM CHLORIDE 0.9% 1,000 ML IV STA (21:25)
[2022-11-19] MEDS ORDERED: PROCHLORPERAZINE INJ 10 MG/2 ML VIAL IVP STA (21:25)
[2022-11-19] MEDS ORDERED: diphenhydrAMINE 50 MG/ML 1 ML VIAL IVP STA (21:25)
[2022-11-19] MEDS ORDERED: ACETAMINOPHEN TAB 500 MG TAB PO STA (21:25)
--- NOTE | 2022-11-19 22:35 | ED ---
General Adult HPI - General Chief complaint: Arrhythmia/Palpitations Stated complaint: heart rate low/blood pressure issues Time Seen by Provider: 11/19/22 21:03 Source: patient, RN notes reviewed, old records reviewed Mode of arrival: ambulatory Limitations: no limitations - History of Present Illness Initial comments: Patient is a 27-year-old female with past history remarkable for PE, intermittent episodes of chest pain, asthma, DVT, migraines who presents with migraines, as well as episodes at home of intermittent chest discomfort which she currently does not have as well as palpitations. Also states that she was having very mild leg swelling in the left leg. States she does have a history of DVT. States she does have some palpitations which have since resolved. Also states that she was monitoring her blood pressure and it was ranging anywhere from 120-140 systolic. Also states she is having her typical migraine type headache, which is a throbbing sensation somewhat in the back of her head at this time. No trauma. No fevers, chills, cough. No dizziness or lightheadedness. No blurry vision. No other acute complaint at this time. Does have a history of chronic mild memory impairment. Presents for further evaluation at this time.Symptoms have been ongoing for over 24 hours prior to my evaluating the patient. Workup was started in triage. - Related Data Home Medications Medication Instructions Recorded Confirmed Zonisamide 100 mg PO BID@1200,2100 04/06/15 08/08/22 Butalb/APAP/Caff 50-325-40Mg 1 tab PO Q6H PRN 10/05/18 08/08/22 [Fioricet 50-325-40] Galcanezumab-Gnlm [Emgality Pen] 120 mg SQ Q30D 03/21/19 08/08/22 HYDROcodone/APAP 10-325MG [[place] 1 tab PO TID 07/04/20 08/08/22 10-325] Montelukast Sodium [Singulair] 10 mg PO HS 07/04/20 08/08/22 Levothyroxine Sodium [Synthroid] 50 mcg PO DAILY 08/04/20 08/08/22 Ocrevus 1 dose IV Q180D 10/15/20 08/08/22 Albuterol Sulfate [Proventil Hfa] 2 puff INHALATION RT-QID PRN 10/25/20 08/08/22 Baclofen [Lioresal] 20 mg PO TID 10/25/20 08/08/22 Oxybutynin Chloride [oxyBUTYnin 10 mg PO HS 10/25/20 08/08/22 chloride ER] Gabapentin 600 mg PO QID 01/15/21 08/08/22 Aspirin EC [Ecotrin Low Dose] 81 mg PO DAILY 04/28/21 08/08/22 Omeprazole 40 mg PO BID 04/28/21 08/08/22 Ondansetron Odt [Zofran ODT] 4 mg PO Q12H PRN 04/28/21 08/08/22 Multivit with Calcium,Iron,Min 1 tab PO DAILY 06/26/21 08/08/22 [Women's Multivitamin] hydrOXYzine pamoate [Vistaril] 50 mg PO TID 08/21/21 08/08/22 Desvenlafaxine [Pristiq ER] 100 mg PO DAILY 01/03/22 08/08/22 Promethazine [Phenergan] 12.5 mg PO BID PRN 01/03/22 08/08/22 busPIRone HCL 15 mg PO QID 01/03/22 08/08/22 Cholecalciferol [Vitamin D3 (25 50 mcg PO DAILY 08/08/22 08/08/22 Mcg = 1000 Iu)] Fluticasone Propionate [Flovent 2 puff INHALATION RT-BID PRN 08/08/22 08/08/22 Hfa 220 mcg] Loratadine 10 mg PO DAILY 08/08/22 08/08/22 Meclizine [Antivert] 25 mg PO BID PRN 08/08/22 08/08/22 Propranolol [Inderal] 20 mg PO BID 08/08/22 08/08/22 Ubrogepant [Ubrelvy] 100 mg PO BID PRN 08/08/22 08/08/22 buPROPion XL [Wellbutrin XL] 150 mg PO DAILY 08/08/22 08/08/22 Previous Rx's Medication Instructions Recorded Sucralfate [Carafate] 1 gm PO BID #60 tablet 08/22/21 predniSONE 50 mg PO DAILY 5 Days #5 tablet 08/08/22 Cyclobenzaprine [Flexeril] 10 mg PO HS PRN #20 tab 08/14/22 Lidocaine 5% Patch [Lidoderm 5% 1 patch TOPICAL DAILY PRN #1 pack 08/14/22 Patch] methylPREDNISolone Dose Pack 4 mg PO DIRECTED #1 packet 08/14/22 [Medrol Dose Pack] Allergies Allergy/AdvReac Type Severity Reaction Status Date / Time codeine Allergy Anaphylaxis Verified 11/19/22 17:14 peanut Allergy Anaphylaxis Verified 11/19/22 17:14 aspartame AdvReac Diarrhea Verified 11/19/22 17:14 fingolimod [From [employer]] AdvReac Abdominal Verified 11/19/22 17:14 Pain ibuprofen AdvReac Abdominal Verified 11/19/22 17:14 Pain lactose AdvReac Nausea & Verified 11/19/22 17:14 Vomiting & Diarrhea Review of Systems ROS Statement: Those systems with pertinent positive or pertinent negative responses have been documented in the HPI. Review of Systems: CONST: Denies fever EYES: Denies blurry vision ENT: Denies nasal congestion C/V: Endorses palpitations RESP: Denies shortness of breath GI: Denies abdominal pain : Denies dysuria SKIN: Denies rash. MSK: Denies joint pain. NEURO: Endorses headache ROS Other: All systems not noted in ROS Statement are negative. 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, Multiple Sclerosis dx November 2018, pt states left leg weak and uses walker ., Bladder retention, frequent flares with panniculitis (worse since weight loss); SEE DR NICK'S HISTORY REGARDING CARDIAC HISTORY History of Any Multi-Drug Resistant Organisms: MRSA Date of last positivie culture/infection: 11/08/17 MDRO Source:: LT INNER THIGH Past Surgical History: Bariatric Surgery, Cholecystectomy, Ear Surgery Additional Past Surgical History / Comment(s): tubes in ears, EGD, laparoscopic kimberly-en-y 02-08-2018 , EGD with dilation Past Anesthesia/Blood Transfusion Reactions: No Reported Reaction Past Psychological History: Anxiety, Depression, PTSD Smoking Status: Never smoker Past Alcohol Use History: None Reported Past Drug Use History: None Reported - Past Family History Mother Family Medical History: Diabetes Mellitus Father Family Medical History: Unable to Obtain General Exam - General Exam Comments Initial Comments: General: Appears in no acute distress. HEAD: Normal with no signs of head trauma. EYES: PERRLA, EOMI, conjunctiva normal, no discharge. Pupils are 3 mm equal bilaterally. ENT: Hearing grossly intact, normal oropharynx. RESPIRATORY: Clear breath sounds bilaterally. No wheezes, rales, or rhonchi. C/V: Regular rate and rhythm. S1 and S2 auscultated, no pitting edema, peripheral pulses 2+ and intact throughout ABD: Abd is soft, nontender, nondistended EXT: Normal range of motion, no obvious deformity SKIN: No rashes or lesions observed on exposed skin. NEURO: Alert and oriented x 4. Cranial nerves II-XII intact. No focal sensory or strength deficits. Nature 0. GCS of 15. Limitations: no limitations Course Vital Signs 11/19/22 11/19/22 11/19/22 17:12 21:02 23:33 Temperature 98.3 F Pulse Rate 72 66 63 Respiratory 20 18 18 Rate Blood Pressure 129/95 128/91 127/70 O2 Sat by Pulse 98 97 98 Oximetry 11/20/22 00:38 Temperature Pulse Rate 62 Respiratory 18 Rate Blood Pressure 119/73 O2 Sat by Pulse 99 Oximetry Medical Decision Making - Medical Decision Making Was pt. sent in by a medical professional or institution (Dr. PA, BOOK OR SCRIPT EDITOR, urgent care, hospital, or correction...) When possible be specific @ -No Did you speak to anyone other than the patient for history (EMS, parent, family, police, friend...)? What history was obtained from this source @ -No Did you review nursing and triage notes (agree or disagree)? Why? @ -I reviewed and agree with nursing and triage notes Were old charts reviewed (outside hosp., previous admission, EMS record, old EKG, old radiological studies, urgent care reports/EKG's, correction records)? Report findings @ -No old charts were reviewed Differential Diagnosis (chest pain, altered mental status, abdominal pain women, abdominal pain men, vaginal bleeding, weakness, fever, dyspnea, syncope, headache, dizziness, GI bleed, back pain, seizure, CVA, palpatations, mental health, musculoskeletal)? @ -Differential Palpitations Ventricular arrhythmias, atrial arrhythmias, myocardial infarction, anemia, thyrotoxicosis, electrolyte imbalance, hypokalemia, pulmonary embolism, pulmonary disease, drugs, alcohol, anxiety, stress.... This is not meant to be an all-inclusive list. Migraine headache EKG interpreted by me (3pts min.). @ -As above X-rays interpreted by me (1pt min.). @ -chest x-ray revealed no obvious acute cardio pulmonary process. CT interpreted by me (1pt min.). @ -None done U/S interpreted by me (1pt. min.). @ -Venous duplex ultrasound negative for any obvious bilateral DVTs. What testing was considered but not performed or refused? (CT, X-rays, U/S, labs)? Why? @ -None What meds were considered but not given or refused? Why? @ -None Did you discuss the management of the patient with other professionals (professionals i.e. , PA, BOOK OR SCRIPT EDITOR, lab, RT, psych nurse, web content & social media manager, tanning wheel filler, teacher, business development officer, telehealth case manager)? Give summary @ -No Was smoking cessation discussed for >3mins.? @ -No Was critical care preformed (if so, how long)? @ -No Were there social determinants of health that impacted care today? How? (Homelessness, low income, unemployed, alcoholism, drug addiction, transportation, low edu. Level, literacy, decrease access to med. care, longterm, rehab)? @ -No Was there de-escalation of care discussed even if they declined (Discuss DNR or withdrawal of care, Hospice)? DNR status @ -No What co-morbidities impacted this encounter? (DM, HTN, Smoking, COPD, CAD, Cancer, CVA, ARF, Chemo, Hep., AIDS, mental health diagnosis, sleep apnea, morbid obesity)? @ -History of PE no longer on blood thinners. History of migraines. Was patient admitted / discharged? Hospital course, mention meds given and route, prescriptions, significant lab abnormalities, going to OR and other pertinent info. @ -Based on the patient's presentation and physical exam, she presents emergency Department with multiple complaints. Primarily palpitations, migraine headache. Palpitations have resolved. But she is concerned she may have a blood clot or DVT. States she may have had some leg swelling yesterday as well. We will obtain a venous duplex of the left lower x-ray. Workup was started and triage prior to me evaluating the patient. It was remarkable for a troponin that was undetectable. We will obtain a d-dimer as well as an additional troponin and the duplex. She'll be sent likely to for her typical migraine headache with IV fluids, Compazine, Benadryl, magnesium. She also received Tylenol. She was in agreement this plan. Chest x-ray will also be obtained. Vital signs are within acceptable limits. Patient's repeat laboratory studies are unremarkable this includes a d-dimer that is within normal limits and a undetectable troponin. Imaging for DVT negative. Chest x-ray unremarkable. On reevaluation, her migraine has resolved. She is feeling improved. I believe it is safe for her to be discharged home. She was in agreement this plan. I instructed the patient to follow up with their PCP in the next 1-3 days. I explained that the patient should return to the emergency department if they experience any worsening symptoms. Strict return precautions were discussed with the patient. The patient expressed understanding of these instructions. I answered all questions that the patient had. The patient was discharged home in good condition with their prescriptions and follow up information. Undiagnosed new problem with uncertain prognosis? @ -No Drug Therapy requiring intensive monitoring for toxicity (Heparin, Nitro, Insulin, Cardizem)? @ -No Were any procedures done? @ -No Diagnosis/symptom? @ -Migraine headache, palpitations Acute, or Chronic, or Acute on Chronic? @ -Acute on chronic Uncomplicated (without systemic symptoms) or Complicated (systemic symptoms)? @ -Uncomplicated Side effects of treatment? @ -none Exacerbation, Progression, or Severe Exacerbation] @ -no Poses a threat to life or bodily function? @ -no - Lab Data Result diagrams: 11/19/22 17:25 11/19/22 17:25 Lab Results 11/19/22 11/19/22 11/19/22 Range/Units 17:25 17:25 17:25 WBC 6.0 (3.8-10.6) k/uL RBC 4.19 (3.80-5.40) m/uL Hgb 13.1 (11.4-16.0) gm/dL Hct 38.7 (34.0-46.0) % MCV 92.4 (80.0-100.0) fL MCH 31.3 (25.0-35.0) pg MCHC 33.9 (31.0-37.0) g/dL RDW 12.2 (11.5-15.5) % Plt Count 275 (150-450) k/uL MPV 8.9 Neutrophils % 69 % Lymphocytes % 24 % Monocytes % 3 % Eosinophils % 3 % Basophils % 0 % Neutrophils # 4.2 (1.3-7.7) k/uL Lymphocytes # 1.4 (1.0-4.8) k/uL Monocytes # 0.2 (0-1.0) k/uL Eosinophils # 0.2 (0-0.7) k/uL Basophils # 0.0 (0-0.2) k/uL PT 10.2 (9.0-12.0) sec INR 1.0 (<1.2) APTT 22.6 (22.0-30.0) sec D-Dimer (<0.60) mg/L FEU Sodium 137 (137-145) mmol/L Potassium 4.1 (3.5-5.1) mmol/L Chloride 111 H (98-107) mmol/L Carbon Dioxide 19 L (22-30) mmol/L Anion Gap 7 mmol/L BUN 10 (7-17) mg/dL Creatinine 0.63 (0.52-1.04) mg/dL Est GFR (CKD-EPI)AfAm >90 (>60 ml/min/1.73 sqM) Est GFR (CKD-EPI)NonAf >90 (>60 ml/min/1.73 sqM) Glucose 105 H (74-99) mg/dL Calcium 9.5 (8.4-10.2) mg/dL Magnesium 1.8 (1.6-2.3) mg/dL Total Bilirubin 0.3 (0.2-1.3) mg/dL AST 22 (14-36) U/L ALT 25 (4-34) U/L Alkaline Phosphatase 78 (38-126) U/L Troponin I (0.000-0.034) ng/mL NT-Pro-B Natriuret Pep pg/mL Total Protein 6.3 (6.3-8.2) g/dL Albumin 4.1 (3.5-5.0) g/dL 11/19/22 11/19/22 11/19/22 Range/Units 17:25 21:30 21:30 WBC (3.8-10.6) k/uL RBC (3.80-5.40) m/uL Hgb (11.4-16.0) gm/dL Hct (34.0-46.0) % MCV (80.0-100.0) fL MCH (25.0-35.0) pg MCHC (31.0-37.0) g/dL RDW (11.5-15.5) % Plt Count (150-450) k/uL MPV Neutrophils % % Lymphocytes % % Monocytes % % Eosinophils % % Basophils % % Neutrophils # (1.3-7.7) k/uL Lymphocytes # (1.0-4.8) k/uL Monocytes # (0-1.0) k/uL Eosinophils # (0-0.7) k/uL Basophils # (0-0.2) k/uL PT (9.0-12.0) sec INR (<1.2) APTT (22.0-30.0) sec D-Dimer 0.18 (<0.60) mg/L FEU Sodium (137-145) mmol/L Potassium (3.5-5.1) mmol/L Chloride (98-107) mmol/L Carbon Dioxide (22-30) mmol/L Anion Gap mmol/L BUN (7-17) mg/dL Creatinine (0.52-1.04) mg/dL Est GFR (CKD-EPI)AfAm (>60 ml/min/1.73 sqM) Est GFR (CKD-EPI)NonAf (>60 ml/min/1.73 sqM) Glucose (74-99) mg/dL Calcium (8.4-10.2) mg/dL Magnesium (1.6-2.3) mg/dL Total Bilirubin (0.2-1.3) mg/dL AST (14-36) U/L ALT (4-34) U/L Alkaline Phosphatase (38-126) U/L Troponin I <0.012 <0.012 (0.000-0.034) ng/mL NT-Pro-B Natriuret Pep pg/mL Total Protein (6.3-8.2) g/dL Albumin (3.5-5.0) g/dL 11/19/22 Range/Units 21:30 WBC (3.8-10.6) k/uL RBC (3.80-5.40) m/uL Hgb (11.4-16.0) gm/dL Hct (34.0-46.0) % MCV (80.0-100.0) fL MCH (25.0-35.0) pg MCHC (31.0-37.0) g/dL RDW (11.5-15.5) % Plt Count (150-450) k/uL MPV Neutrophils % % Lymphocytes % % Monocytes % % Eosinophils % % Basophils % % Neutrophils # (1.3-7.7) k/uL Lymphocytes # (1.0-4.8) k/uL Monocytes # (0-1.0) k/uL Eosinophils # (0-0.7) k/uL Basophils # (0-0.2) k/uL PT (9.0-12.0) sec INR (<1.2) APTT (22.0-30.0) sec D-Dimer (<0.60) mg/L FEU Sodium (137-145) mmol/L Potassium (3.5-5.1) mmol/L Chloride (98-107) mmol/L Carbon Dioxide (22-30) mmol/L Anion Gap mmol/L BUN (7-17) mg/dL Creatinine (0.52-1.04) mg/dL Est GFR (CKD-EPI)AfAm (>60 ml/min/1.73 sqM) Est GFR (CKD-EPI)NonAf (>60 ml/min/1.73 sqM) Glucose (74-99) mg/dL Calcium (8.4-10.2) mg/dL Magnesium (1.6-2.3) mg/dL Total Bilirubin (0.2-1.3) mg/dL AST (14-36) U/L ALT (4-34) U/L Alkaline Phosphatase (38-126) U/L Troponin I (0.000-0.034) ng/mL NT-Pro-B Natriuret Pep 39 pg/mL Total Protein (6.3-8.2) g/dL Albumin (3.5-5.0) g/dL - EKG Data -: EKG Interpreted by Me EKG Comments: 12-lead Electrocardiogram Interpretation Note EKG was reviewed and interpreted by myself. 12-lead ECG performed at 1724 is interpreted by me as revealing with sinus bradycardia at a rate of 57 beats per minute. [place] is normal. NE interval is 169 ms, QRS duration is 87 ms, QTc is 382 ms.. There were no acute ST or T wave abnormalities to suggest myocardial ischemia or injury. R wave progression across the precordium was satisfactory. By my interpretation this EKG is non-diagnostic for acute ischemia. Chronic T wave inversion in lead V2 seen from EKG from October 2022 Disposition Clinical Impression: Heart palpitations, Migraine Disposition: HOME SELF-CARE Condition: Good Instructions (If sedation given, give patient instructions): Heart Palpitations (ED), Migraine Headache (ED) Is patient prescribed a controlled substance at d/c from ED?: No Referrals: Parminder Torres DO [Primary Care Provider] - 1-2 days Time of Disposition: 00:28
--- NOTE | 2022-11-19 23:50 | US ---
EXAM: US Duplex Bilateral Lower Extremities Veins CLINICAL HISTORY: US Reason: history of blood clot, leg cramping/eval for dvt TECHNIQUE: Real-time duplex ultrasound scan of the bilateral lower extremity veins integrating B-mode two-dimensional vascular structure, Doppler spectral analysis, color flow Doppler imaging and compression. COMPARISON: No relevant prior studies available. FINDINGS: Right deep veins: Unremarkable. No DVT in the right common femoral, femoral, proximal deep femoral or popliteal veins. The veins demonstrate normal color flow, are normally compressible, with normal phasic flow and/or augmentation response. Right superficial veins: Unremarkable. No thrombus in the visualized right great saphenous vein. Left deep veins: Unremarkable. No DVT in the left common femoral, femoral, proximal deep femoral or popliteal veins. The veins demonstrate normal color flow, are normally compressible, with normal phasic flow and/or augmentation response. Left superficial veins: Unremarkable. No thrombus in the visualized left great saphenous vein. Soft tissues: No acute findings. No popliteal cyst. IMPRESSION: Normal bilateral lower extremity duplex venous ultrasound.
[2022-11-20 00:41] VITALS: BP 119/73; PULSE 62
== END 2022-11-20 00:50 | disposition home or self-care (01) ==
LOC: EC 17:09
DX: R00.2 Palpitations (principal); G43.909 Migraine, unspecified, not intractable, without status migrainosus; J45.909 Unspecified asthma, uncomplicated; F41.9 Anxiety disorder, unspecified; F32.A Depression, unspecified; Z79.82 Long term (current) use of aspirin; Z79.899 Other long term (current) drug therapy; Z88.5 Allergy status to narcotic agent; Z91.010 Allergy to peanuts; Z88.6 Allergy status to analgesic agent; Z91.011 Allergy to milk products; Z88.8 Allergy status to other drugs, medicaments and biological substances
CPT/HCPCS: 36415; 93005; 85379; 83880; 80053; 83735; 84484; 85025; 85610; 85730; 71046; 93970; 99285; 96365; 96375 ×2; J1200; J0780; J3475

== ENCOUNTER 2023-05-08 19:34 | Emergency (ER) | payer OTHER ==
[2023-05-08 20:01] VITALS: RESP 18
--- NOTE | 2023-05-08 20:10 | ED ---
Abdominal Pain HPI - General Source: patient Mode of arrival: ambulatory Limitations: no limitations <Susana Chase - Last Filed: 05/08/23 20:10> - General Source: patient, RN notes reviewed, old records reviewed <Mike Calzada - Last Filed: 05/08/23 23:37> - General Chief Complaint: Abdominal Pain Stated Complaint: left side abd pain Time Seen by Provider: 05/08/23 20:10 - History of Present Illness Initial Comments: 27-year-old female presenting with chief complaint of left upper quadrant pain. Ongoing for the last month and worse today. (Susana Chase) Patient is a 27-year-old female presents emergency department for left upper quadrant abdominal pain. Has been on-and-off for the last month. Does have a history of this as well. Has a history of gastric bypass. Also has a history of cholecystectomy. States symptoms have been worse in the last few days which/presents for further evaluation. Endorses nausea with the pain. Denies any constipation or decrease flatulence. Denies any fevers or chills. Denies any sick contacts. His no coughing. No other acute complaints at this time. Presents for further evaluation. Denies history of chest pain. Patient was originally evaluated as a quick note. (Mike Calzada) - Related Data Home Medications Medication Instructions Recorded Confirmed Zonisamide 100 mg PO BID@1200,2100 04/06/15 08/08/22 Butalb/APAP/Caff 50-325-40Mg 1 tab PO Q6H PRN 10/05/18 08/08/22 [Fioricet 50-325-40] Galcanezumab-Gnlm [Emgality Pen] 120 mg SQ Q30D 03/21/19 08/08/22 HYDROcodone/APAP 10-325MG [[place] 1 tab PO TID 07/04/20 08/08/22 10-325] Montelukast Sodium [Singulair] 10 mg PO HS 07/04/20 08/08/22 Levothyroxine Sodium [Synthroid] 50 mcg PO DAILY 08/04/20 08/08/22 Ocrevus 1 dose IV Q180D 10/15/20 08/08/22 Albuterol Sulfate [Proventil Hfa] 2 puff INHALATION RT-QID PRN 10/25/20 08/08/22 Baclofen [Lioresal] 20 mg PO TID 10/25/20 08/08/22 Oxybutynin Chloride [oxyBUTYnin 10 mg PO HS 10/25/20 08/08/22 chloride ER] Gabapentin 600 mg PO QID 01/15/21 08/08/22 Aspirin EC [Ecotrin Low Dose] 81 mg PO DAILY 04/28/21 08/08/22 Omeprazole 40 mg PO BID 04/28/21 08/08/22 Ondansetron Odt [Zofran ODT] 4 mg PO Q12H PRN 04/28/21 08/08/22 Multivit with Calcium,Iron,Min 1 tab PO DAILY 06/26/21 08/08/22 [Women's Multivitamin] hydrOXYzine pamoate [Vistaril] 50 mg PO TID 08/21/21 08/08/22 Desvenlafaxine [Pristiq ER] 100 mg PO DAILY 01/03/22 08/08/22 Promethazine [Phenergan] 12.5 mg PO BID PRN 01/03/22 08/08/22 busPIRone HCL 15 mg PO QID 01/03/22 08/08/22 Cholecalciferol [Vitamin D3 (25 50 mcg PO DAILY 08/08/22 08/08/22 Mcg = 1000 Iu)] Fluticasone Propionate [Flovent 2 puff INHALATION RT-BID PRN 08/08/22 08/08/22 Hfa 220 mcg] Loratadine 10 mg PO DAILY 08/08/22 08/08/22 Meclizine [Antivert] 25 mg PO BID PRN 08/08/22 08/08/22 Propranolol [Inderal] 20 mg PO BID 08/08/22 08/08/22 Ubrogepant [Ubrelvy] 100 mg PO BID PRN 08/08/22 08/08/22 buPROPion XL [Wellbutrin XL] 150 mg PO DAILY 08/08/22 08/08/22 Previous Rx's Medication Instructions Recorded Sucralfate [Carafate] 1 gm PO BID #60 tablet 08/22/21 predniSONE 50 mg PO DAILY 5 Days #5 tablet 08/08/22 Cyclobenzaprine [Flexeril] 10 mg PO HS PRN #20 tab 08/14/22 Lidocaine 5% Patch [Lidoderm 5% 1 patch TOPICAL DAILY PRN #1 pack 08/14/22 Patch] methylPREDNISolone Dose Pack 4 mg PO DIRECTED #1 packet 08/14/22 [Medrol Dose Pack] Dicyclomine [Bentyl] 10 mg PO TID PRN 7 Days #21 capsule 05/08/23 Allergies Allergy/AdvReac Type Severity Reaction Status Date / Time codeine Allergy Anaphylaxis Verified 05/08/23 19:53 peanut Allergy Anaphylaxis Verified 05/08/23 19:53 aspartame AdvReac Diarrhea Verified 05/08/23 19:53 fingolimod [From MADS] AdvReac Abdominal Verified 05/08/23 19:53 Pain ibuprofen AdvReac Abdominal Verified 05/08/23 19:53 Pain lactose AdvReac Nausea & Verified 05/08/23 19:53 Vomiting & Diarrhea Review of Systems ROS Other: All systems not noted in ROS Statement are negative. <Susana Chase - Last Filed: 05/08/23 20:10> ROS Other: All systems not noted in ROS Statement are negative. <Mike Calzada - Last Filed: 05/08/23 23:37> ROS Statement: Those systems with pertinent positive or pertinent negative responses have been documented in the HPI. Review of Systems: CONST: Denies fever EYES: Denies blurry vision ENT: Denies nasal congestion C/V: Denies Chest pain RESP: Denies shortness of breath GI: Endorses abdominal pain : Denies dysuria SKIN: Denies rash. MSK: Denies joint pain. 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, Multiple Sclerosis dx November 2018, pt states left leg weak and uses walker ., Bladder retention, frequent flares with panniculitis (worse since weight loss); SEE DR NICK'S HISTORY REGARDING CARDIAC HISTORY History of Any Multi-Drug Resistant Organisms: MRSA Date of last positivie culture/infection: 11/08/17 MDRO Source:: LT INNER THIGH Past Surgical History: Bariatric Surgery, Cholecystectomy, Ear Surgery Additional Past Surgical History / Comment(s): tubes in ears, EGD, laparoscopic [id number] 02-08-2018 , EGD with dilation Past Anesthesia/Blood Transfusion Reactions: No Reported Reaction Past Psychological History: Anxiety, Depression, PTSD Smoking Status: Never smoker Past Alcohol Use History: None Reported Past Drug Use History: None Reported - Past Family History Mother Family Medical History: Diabetes Mellitus Father Family Medical History: Unable to Obtain <Susana Chase - Last Filed: 05/08/23 20:10> General Exam Limitations: no limitations <Susana Chase - Last Filed: 05/08/23 20:10> <Mike Calzada - Last Filed: 05/08/23 23:37> - General Exam Comments Initial Comments: Visual Physical Exam Vital signs reviewed General: Well-appearing, nontoxic, no acute distress. Head: Normocephalic, atraumatic Eyes: PERRLA, EOMI ENT: Airway patent Chest: Nonlabored breathing Skin: No visual rash, normal skin tone Neuro: Alert and oriented 3 Musculoskeletal: No gross abnormalities (Susana Chase) General: Appears in no acute distress. HEAD: Normal with no signs of head trauma. EYES: PERRLA, EOMI, conjunctiva normal, no discharge. ENT: Hearing grossly intact, normal oropharynx. RESPIRATORY: Clear breath sounds bilaterally. No wheezes, rales, or rhonchi. C/V: Regular rate and rhythm. S1 and S2 auscultated, no edema, peripheral pulses 2+ and intact throughout ABD: Abdomen is soft, nondistended. Minimal tenderness palpation mostly in the epigastric and left upper quadrant region. No guarding. No rebound tenderness. No peritoneal signs. EXT: Normal range of motion, no obvious deformity SKIN: No rashes or lesions observed on exposed skin. NEURO: Alert and oriented x 4. Cranial nerves II-XII intact. No focal sensory or strength deficits. (Mike Calzada) Course Vital Signs 05/08/23 05/08/23 19:51 22:25 Temperature 99.2 F 98.3 F Pulse Rate 82 63 Respiratory 18 18 Rate Blood Pressure 126/81 124/77 O2 Sat by Pulse 100 97 Oximetry Medical Decision Making - Lab Data Result diagrams: 05/08/23 20:33 05/08/23 20:33 - EKG Data -: EKG Interpreted by Me <Mike Calzada - Last Filed: 05/08/23 23:37> - Medical Decision Making Was pt. sent in by a medical professional or institution (, PA, BRANCH MAKER, urgent care, hospital, or skilled nursing...) When possible be specific @ -No Did you speak to anyone other than the patient for history (EMS, parent, family, police, friend...)? What history was obtained from this source @ -No Did you review nursing and triage notes (agree or disagree)? Why? @ -I reviewed and agree with nursing and triage notes Were old charts reviewed (outside hosp., previous admission, EMS record, old EKG, old radiological studies, urgent care reports/EKG's, skilled nursing records)? Report findings @ -Old charts reviewed Differential Diagnosis (chest pain, altered mental status, abdominal pain women, abdominal pain men, vaginal bleeding, weakness, fever, dyspnea, syncope, headache, dizziness, GI bleed, back pain, seizure, CVA, palpatations, mental health, musculoskeletal)? @ -Differential Abdominal Pain Women: Appendicitis, Cholecystitis, diverticulosis, ischemic bowel, pancreatitis, hepatitis, UTI, gastroenteritis, AAA, incarcerated hernia, bowel obstruction, constipation, inflammatory bowel, hepatitis, peptic ulcer disease, splenic infarction, perforated viscus, vulvitis, ovarian torsion, PID, kidney stone, placenta abruption, this is not meant to be an all-inclusive list EKG interpreted by me (3pts min.). @ -As above X-rays interpreted by me (1pt min.). @ -KUB reveals no obvious acute intra-abdominal process. CT interpreted by me (1pt min.). @ -None done U/S interpreted by me (1pt. min.). @ -None done What testing was considered but not performed or refused? (CT, X-rays, U/S, labs)? Why? @ -Considered CT imaging, however patient and I discussed and considering her labs are within acceptable limits and she is feeling improved we do not believe it is indicated at this time. She is young, and we would like to avoid excess radiation. She was in agreement this plan. What meds were considered but not given or refused? Why? @ -None Did you discuss the management of the patient with other professionals (professionals i.e. , PA, BRANCH MAKER, lab, RT, psych nurse, addiction social worker, soldering inspector, teacher, principal gifts officer, case resolution specialist)? Give summary @ -No Was smoking cessation discussed for >3mins.? @ -No Was critical care preformed (if so, how long)? @ -No Were there social determinants of health that impacted care today? How? (Homelessness, low income, unemployed, alcoholism, drug addiction, transportation, low edu. Level, literacy, decrease access to med. care, fci, rehab)? @ -No Was there de-escalation of care discussed even if they declined (Discuss DNR or withdrawal of care, Hospice)? DNR status @ -No What co-morbidities impacted this encounter? (DM, HTN, Smoking, COPD, CAD, Cancer, CVA, ARF, Chemo, Hep., AIDS, mental health diagnosis, sleep apnea, morbid obesity)? @ -None Was patient admitted / discharged? Hospital course, mention meds given and route, prescriptions, significant lab abnormalities, going to OR and other pertinent info. @ -Patient originally evaluated as a quick note. Based on her presentation physical exam, I'm concerned for possible abdominal process causing her current symptoms. Seems to be somewhat chronic. She'll be sent directly to with IV fl uids, Reglan, Benadryl, GI cocktail, Protonix. Laboratory studies and KUB x-ray were already ordered for the patient and I'm in agreement with them. I do not believe she requires CT imaging at this time as laboratory studies indicate that she does. I will add on EKG. She was in agreement this plan. Vital signs within acceptable limits. KUB x-ray reveals no obvious acute intra-abdominal process. EKG reveals no obvious acute ischemic process. Patient's laboratory studies are all within acceptable limits. On reevaluation, patient is feeling improved and tolerating oral intake. We discussed obtaining CT imaging however due to her age and normal workup we believe it is worse deferring at this time. She was in agreement this plan. She'll be discharged home at this time with a prescription for Bentyl as well as a starter pack of ODT Zofran. Strict return precautions discussed. She was in agreement this plan. I instructed the patient to follow up with their PCP in the next 1-3 days. I explained that the patient should return to the emergency department if they experience any worsening symptoms. Strict return precautions were discussed with the patient. The patient expressed understanding of these instructions. I answered all questions that the patient had. The patient was discharged home in good condition with their prescriptions and follow up information. Undiagnosed new problem with uncertain prognosis? @ -No Drug Therapy requiring intensive monitoring for toxicity (Heparin, Nitro, Ins ulin, Cardizem)? @ -No Were any procedures done? @ -No Diagnosis/symptom? @ -Abdominal pain of unknown etiology Acute, or Chronic, or Acute on Chronic? @ -Acute on chronic Uncomplicated (without systemic symptoms) or Complicated (systemic symptoms)? @ -Uncomplicated Side effects of treatment? @ -none Exacerbation, Progression, or Severe Exacerbation] @ -no Poses a threat to life or bodily function? @ -no (Mike Calzada) - Lab Data Lab Results 05/08/23 05/08/23 05/08/23 Range/Units 20:33 20:33 20:33 WBC 9.0 (3.8-10.6) k/uL RBC 4.14 (3.80-5.40) m/uL Hgb 13.1 (11.4-16.0) gm/dL Hct 38.7 (34.0-46.0) % MCV 93.4 (80.0-100.0) fL MCH 31.7 (25.0-35.0) pg MCHC 33.9 (31.0-37.0) g/dL RDW 12.9 (11.5-15.5) % Plt Count 265 (150-450) k/uL MPV 9.5 Neutrophils % 67 % Lymphocytes % 23 % Monocytes % 5 % Eosinophils % 4 % Basophils % 0 % Neutrophils # 6.0 (1.3-7.7) k/uL Lymphocytes # 2.0 (1.0-4.8) k/uL Monocytes # 0.4 (0-1.0) k/uL Eosinophils # 0.4 (0-0.7) k/uL Basophils # 0.0 (0-0.2) k/uL Sodium (137-145) mmol/L Potassium (3.5-5.1) mmol/L Chloride (98-107) mmol/L Carbon Dioxide (22-30) mmol/L Anion Gap mmol/L BUN (7-17) mg/dL Creatinine (0.52-1.04) mg/dL Est GFR (CKD-EPI)AfAm (>60 ml/min/1.73 sqM) Est GFR (CKD-EPI)NonAf (>60 ml/min/1.73 sqM) Glucose (74-99) mg/dL Plasma Lactic Acid [place] (0.7-2.0) mmol/L Calcium (8.4-10.2) mg/dL Total Bilirubin (0.2-1.3) mg/dL AST (14-36) U/L ALT (4-34) U/L Alkaline Phosphatase (38-126) U/L Total Protein (6.3-8.2) g/dL Albumin (3.5-5.0) g/dL Amylase (30-110) U/L Lipase (23-300) U/L Urine Color Yellow Urine Appearance Clear (Clear) Urine pH 6.0 (5.0-8.0) Ur Specific [place] 1.026 (1.001-1.035) Urine Protein Negative (Negative) Urine Glucose (UA) Negative (Negative) Urine Ketones Negative (Negative) Urine Blood Negative (Negative) Urine Nitrite Negative (Negative) Urine Bilirubin Negative (Negative) Urine Urobilinogen <2.0 (<2.0) mg/dL Ur Leukocyte Esterase Negative (Negative) Urine HCG, Qual Not Detected (Not Detectd) 05/08/23 05/08/23 Range/Units 20:33 20:33 WBC (3.8-10.6) k/uL RBC (3.80-5.40) m/uL Hgb (11.4-16.0) gm/dL Hct (34.0-46.0) % MCV (80.0-100.0) fL MCH (25.0-35.0) pg MCHC (31.0-37.0) g/dL RDW (11.5-15.5) % Plt Count (150-450) k/uL MPV Neutrophils % % Lymphocytes % % Monocytes % % Eosinophils % % Basophils % % Neutrophils # (1.3-7.7) k/uL Lymphocytes # (1.0-4.8) k/uL Monocytes # (0-1.0) k/uL Eosinophils # (0-0.7) k/uL Basophils # (0-0.2) k/uL Sodium 140 (137-145) mmol/L Potassium 4.4 (3.5-5.1) mmol/L Chloride 108 H (98-107) mmol/L Carbon Dioxide 21 L (22-30) mmol/L Anion Gap 11 mmol/L BUN 11 (7-17) mg/dL Creatinine 0.60 (0.52-1.04) mg/dL Est GFR (CKD-EPI)AfAm >90 (>60 ml/min/1.73 sqM) Est GFR (CKD-EPI)NonAf >90 (>60 ml/min/1.73 sqM) Glucose 104 H (74-99) mg/dL Plasma Lactic Acid [place] 1.2 (0.7-2.0) mmol/L Calcium 9.6 (8.4-10.2) mg/dL Total Bilirubin 0.2 (0.2-1.3) mg/dL AST 24 (14-36) U/L ALT 22 (4-34) U/L Alkaline Phosphatase 83 (38-126) U/L Total Protein 6.2 L (6.3-8.2) g/dL Albumin 4.1 (3.5-5.0) g/dL Amylase 53 (30-110) U/L Lipase 132 (23-300) U/L Urine Color Urine Appearance (Clear) Urine pH (5.0-8.0) Ur Specific [place] (1.001-1.035) Urine Protein (Negative) Urine Glucose (UA) (Negative) Urine Ketones (Negative) Urine Blood (Negative) Urine Nitrite (Negative) Urine Bilirubin (Negative) Urine Urobilinogen (<2.0) mg/dL Ur Leukocyte Esterase (Negative) Urine HCG, Qual (Not Detectd) - EKG Data EKG Comments: 12-lead Electrocardiogram Interpretation Note EKG was reviewed and interpreted by myself. 12-lead ECG performed at 2248 is interpreted by me as revealing normal sinus rhythm at a rate of 64 beats per minute. [place] is normal. CO interval is 181 ms, QRS duration is 94 ms, QTc is 425 ms. Isolated T wave inversion in lead V2. There were no ST or T wave abnormalities to suggest myocardial ischemia or injury. R wave progression across the precordium was satisfactory. By my interpretation this EKG is non- diagnostic for acute ischemia. (Mike Calzada) Disposition <Susana Chase - Last Filed: 05/08/23 20:10> Is patient prescribed a controlled substance at d/c from ED?: No Time of Disposition: 23:28 <Mike Calzada - Last Filed: 05/08/23 23:37> Clinical Impression: Abdominal pain of unknown etiology Disposition: HOME SELF-CARE Condition: Good Instructions (If sedation given, give patient instructions): Abdominal Pain (ED) Prescriptions: Dicyclomine [Bentyl] 10 mg PO TID PRN 7 Days #21 capsule PRN Reason: Pain Referrals: Parminder Torres DO [Primary Care Provider] - 1-2 days
--- NOTE | 2023-05-08 20:36 | XR ---
EXAMINATION TYPE: XR KUB DATE OF EXAM: 05/08/2023 8:16 PM CLINICAL INDICATION:Female, 27 years old with history of abdominal pain; [facility] COMPARISON: 08/21/2021. TECHNIQUE: One radiographic view of the abdomen was obtained. FINDINGS: The bowel gas pattern is nonspecific without dilated loops of small or large bowel. There i s no evidence for organomegaly or pneumoperitoneum. The osseous structures are intact. No abnormal calcifications are present. Fecal material and gas are demonstrated throughout the colon and rectum. IMPRESSION: Nonspecific bowel gas pattern without radiographic evidence for acute process.
[2023-05-08 21:31] LABS: Basophils % (A) 0 %; Eosinophils # (A) 0.4 k/uL (0-0.7); Eosinophils % (A) 4 %; HCT 38.7 % (34.0-46.0); HGB 13.1 gm/dL (11.4-16.0); Lymphocytes % (A) 23 %; MCH 31.7 pg (25.0-35.0); MCHC 33.9 g/dL (31.0-37.0); MCV 93.4 fL (80.0-100.0); Mean Platelet Volume 9.5; Monocytes # (A) 0.4 k/uL (0-1.0); Monocytes % (A) 5 %; Neutrophils % (A) 67 %; Platelet Count 265 k/uL (150-450); RBC 4.14 m/uL (3.80-5.40); RDW 12.9 % (11.5-15.5)
[2023-05-08 21:44] LABS: Appearance,Urine Clear (Clear); Bilirubin,Urine Negative (Negative); Blood,Urine Negative (Negative); Color,Urine Yellow; Glucose,Urine (UA) Negative (Negative); Ketones,Urine Negative (Negative); Leukocyte Esterase,Urine Negative (Negative); Nitrite,Urine Negative (Negative); Protein,Urine Negative (Negative); Specific Gravity,Urine 1.026 (1.001-1.035); Urobilinogen,Urine <2.0 mg/dL (<2.0)
[2023-05-08] MEDS ORDERED: diphenhydrAMINE 50 MG/ML 1 ML VIAL IVP STA (21:58)
[2023-05-08] MEDS ORDERED: SODIUM CHLORIDE 0.9% 1,000 ML IV STA (21:58)
[2023-05-08] MEDS ORDERED: METOCLOPRAMIDE 5 MG/ML 2 ML VIAL IVP STA (21:58)
[2023-05-08] MEDS ORDERED: MAG HYDROX/AL HYDROX/SIMETH 30 ML, HYOSCYAMINE ELIXIR 10 ML, LIDOCAINE 2% GLYDO JELLY 1... PO STA ×3 (21:58)
[2023-05-08] MEDS ORDERED: PANTOPRAZOLE 40 MG/10 ML VIAL IVP STA (21:58)
[2023-05-08 22:26] LABS: ALT 22 U/L (4-34); AST 24 U/L (14-36); African American GFR (CKD) >90 (>60 ml/min/1.73 sqM); Albumin 4.1 g/dL (3.5-5.0); Alkaline Phosphatase 83 U/L (38-126); Amylase 53 U/L (30-110); Anion Gap 11 mmol/L; Blood Urea Nitrogen 11 mg/dL (7-17); Calcium 9.6 mg/dL (8.4-10.2); Carbon Dioxide 21 mmol/L (22-30); Chloride 108 mmol/L (98-107); Glucose 104 mg/dL (74-99); Lipase 132 U/L (23-300); Non-African American GFR(CKD) >90 (>60 ml/min/1.73 sqM); Potassium 4.4 mmol/L (3.5-5.1); Sodium 140 mmol/L (137-145); Total Bilirubin 0.2 mg/dL (0.2-1.3); Total Protein 6.2 g/dL (6.3-8.2)
[2023-05-08 22:46] VITALS: PULSE 63; TEMP 98.3
[2023-05-08] MEDS ORDERED: ONDANSETRON 4 MG ODT STARTER PACK 2 TAB BTL PO STA (23:34)
[2023-05-09 00:27] VITALS: BP 127/77
== END 2023-05-09 00:10 | disposition home or self-care (01) ==
LOC: EC 19:34
DX: R10.12 Left upper quadrant pain (principal); J45.909 Unspecified asthma, uncomplicated; F32.A Depression, unspecified; F41.9 Anxiety disorder, unspecified; Z79.51 Long term (current) use of inhaled steroids; Z79.899 Other long term (current) drug therapy; Z88.5 Allergy status to narcotic agent; Z91.011 Allergy to milk products; Z88.6 Allergy status to analgesic agent; Z91.010 Allergy to peanuts; Z88.8 Allergy status to other drugs, medicaments and biological substances; Z90.49 Acquired absence of other specified parts of digestive tract; Z98.84 Bariatric surgery status; Z86.711 Personal history of pulmonary embolism; Z86.718 Personal history of other venous thrombosis and embolism
CPT/HCPCS: 36415; 93005; 80053; 82150; 83605; 83690; 85025; 81003; 81025; 74018; 99284; 96374; 96375 ×2; 96361; J1200; J2765; C9113

== ENCOUNTER → 2023-09-15 | Outpatient (CLI) | payer OTHER | END | disposition home or self-care (01) | LOC: LABWHC1 15:59 | PROVIDERS: ATTEND Psychiatry & Neurology Neurology | DX: I49.9 Cardiac arrhythmia, unspecified (principal) | CPT/HCPCS: 36415; 93005 ==

== ENCOUNTER 2024-02-13 18:30 | Emergency (ER) | payer OTHER ==
[2024-02-13 20:01] LABS: Basophils % (A) 0 %; Eosinophils # (A) 0.2 k/uL (0-0.7); Eosinophils % (A) 4 %; HCT 37.9 % (34.0-46.0); HGB 12.2 gm/dL (11.4-16.0); Lymphocytes # (A) 1.2 k/uL (1.0-4.8); Lymphocytes % (A) 22 %; MCH 29.2 pg (25.0-35.0); MCHC 32.2 g/dL (31.0-37.0); MCV 90.5 fL (80.0-100.0); Mean Platelet Volume 9.5; Monocytes # (A) 0.3 k/uL (0-1.0); Monocytes % (A) 5 %; Neutrophils # (A) 3.8 k/uL (1.3-7.7); Neutrophils % (A) 67 %; Platelet Count 279 k/uL (150-450); RBC 4.19 m/uL (3.80-5.40); RDW 13.6 % (11.5-15.5); WBC 5.6 k/uL (3.8-10.6)
--- NOTE | 2024-02-13 20:10 | ED ---
Altered Mental Status HPI - General Chief Complaint: Altered Mental Status Stated Complaint: numbness, neuro symptoms Time Seen by Provider: 02/13/24 19:33 Source: patient, RN notes reviewed Mode of arrival: wheelchair - History of Present Illness Initial Comments: 1-year-old female with history of MS and PE presenting to the ER for facial numbness x 6 hours. States that she was talking to mother at 1:30 PM this afternoon when all of a sudden her mother began to notice left facial droop. Patient began to experience tingling in the left side of her face, mouth, and left arm. She is also experiencing blurriness in the left eye. She states she feels "out of it" and is unable to focus. She has never had the symptoms before. She takes a twice yearly injection for her MS. States the symptoms are new. She does have a history of a PE, however is no longer on blood thinners. She takes baby aspirin daily. Denies chest pain or shortness of breath. - Related Data Home Medications Medication Instructions Recorded Confirmed Zonisamide 100 mg PO BID@1200,2100 04/06/15 08/08/22 Butalb/APAP/Caff 50-325-40Mg 1 tab PO Q6H PRN 10/05/18 08/08/22 [Fioricet 50-325-40] Galcanezumab-Gnlm [Emgality Pen] 120 mg SQ Q30D 03/21/19 08/08/22 HYDROcodone/APAP 10-325MG [[place] 1 tab PO TID 07/04/20 08/08/22 10-325] Montelukast Sodium [Singulair] 10 mg PO HS 07/04/20 08/08/22 Levothyroxine Sodium [Synthroid] 50 mcg PO DAILY 08/04/20 08/08/22 Ocrevus 1 dose IV Q180D 10/15/20 08/08/22 Albuterol Sulfate [Proventil Hfa] 2 puff INHALATION RT-QID PRN 10/25/20 08/08/22 Baclofen [Lioresal] 20 mg PO TID 10/25/20 08/08/22 Oxybutynin Chloride [oxyBUTYnin 10 mg PO HS 10/25/20 08/08/22 chloride ER] Gabapentin 600 mg PO QID 01/15/21 08/08/22 Aspirin EC [Ecotrin Low Dose] 81 mg PO DAILY 04/28/21 08/08/22 Omeprazole 40 mg PO BID 04/28/21 08/08/22 Ondansetron Odt [Zofran ODT] 4 mg PO Q12H PRN 04/28/21 08/08/22 Multivit with Calcium,Iron,Min 1 tab PO DAILY 06/26/21 08/08/22 [Women's Multivitamin] hydrOXYzine pamoate [Vistaril] 50 mg PO TID 08/21/21 08/08/22 Desvenlafaxine [Pristiq ER] 100 mg PO DAILY 01/03/22 08/08/22 Promethazine [Phenergan] 12.5 mg PO BID PRN 01/03/22 08/08/22 busPIRone HCL 15 mg PO QID 01/03/22 08/08/22 Cholecalciferol [Vitamin D3 (25 50 mcg PO DAILY 08/08/22 08/08/22 Mcg = 1000 Iu)] Fluticasone Propionate [Flovent 2 puff INHALATION RT-BID PRN 08/08/22 08/08/22 Hfa 220 mcg] Loratadine 10 mg PO DAILY 08/08/22 08/08/22 Meclizine [Antivert] 25 mg PO BID PRN 08/08/22 08/08/22 Propranolol [Inderal] 20 mg PO BID 08/08/22 08/08/22 Ubrogepant [Ubrelvy] 100 mg PO BID PRN 08/08/22 08/08/22 buPROPion XL [Wellbutrin XL] 150 mg PO DAILY 08/08/22 08/08/22 Previous Rx's Medication Instructions Recorded Sucralfate [Carafate] 1 gm PO BID #60 tablet 08/22/21 predniSONE 50 mg PO DAILY 5 Days #5 tablet 08/08/22 Cyclobenzaprine [Flexeril] 10 mg PO HS PRN #20 tab 08/14/22 Lidocaine 5% Patch [Lidoderm 5% 1 patch TOPICAL DAILY PRN #1 pack 08/14/22 Patch] methylPREDNISolone Dose Pack 4 mg PO DIRECTED #1 packet 08/14/22 [Medrol Dose Pack] Dicyclomine [Bentyl] 10 mg PO TID PRN 7 Days #21 capsule 05/08/23 predniSONE [Deltasone] 40 mg PO DAILY #10 tab 02/13/24 Allergies Allergy/AdvReac Type Severity Reaction Status Date / Time codeine Allergy Anaphylaxis Verified 02/13/24 19:00 peanut Allergy Anaphylaxis Verified 02/13/24 19:00 aspartame AdvReac Diarrhea Verified 02/13/24 19:00 fingolimod [From [place]] AdvReac Abdominal Verified 02/13/24 19:00 Pain ibuprofen AdvReac Abdominal Verified 02/13/24 19:00 Pain lactose AdvReac Nausea & Verified 02/13/24 19:00 Vomiting & Diarrhea Review of Systems ROS Statement: Those systems with pertinent positive or pertinent negative responses have been documented in the HPI. ROS Other: All systems not noted in ROS Statement are negative. 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, Multiple Sclerosis dx November 2018, pt states left leg weak and uses walker ., Bladder retention, frequent flares with panniculitis (worse since weight loss); SEE DR NICK'S HISTORY REGARDING CARDIAC HISTORY History of Any Multi-Drug Resistant Organisms: MRSA Date of last positivie culture/infection: 11/08/17 MDRO Source:: LT INNER THIGH Past Surgical History: Bariatric Surgery, Cholecystectomy, Ear Surgery Additional Past Surgical History / Comment(s): tubes in ears, EGD, laparoscopic [id number] 02-08-2018 , EGD with dilation Past Anesthesia/Blood Transfusion Reactions: No Reported Reaction Past Psychological History: Anxiety, Depression, PTSD Smoking Status: Never smoker Past Alcohol Use History: None Reported Past Drug Use History: None Reported - Past Family History Mother Family Medical History: Diabetes Mellitus Father Family Medical History: Unable to Obtain General Exam General appearance: alert, in no apparent distress Head exam: Present: atraumatic, normocephalic, normal inspection Eye exam: Present: normal appearance, PERRL, EOMI. Absent: scleral icterus, conjunctival injection, periorbital swelling ENT exam: Present: normal exam, mucous membranes moist Neck exam: Present: normal inspection. Absent: tenderness, meningismus, lymphadenopathy Respiratory exam: Present: normal lung sounds bilaterally. Absent: respiratory distress, wheezes, rales, rhonchi, stridor Cardiovascular Exam: Present: regular rate, normal rhythm, normal heart sounds. Absent: systolic murmur, diastolic murmur, rubs, gallop, clicks Extremities exam: Present: normal inspection, full ROM, normal capillary refill. Absent: tenderness, pedal edema, joint swelling, calf tenderness Neurological exam: Present: alert, oriented X3, CN II-XII intact, other (Strength 4 out of 5 left-sided upper extremity, 5 out of 5 right side upper extremity) Psychiatric exam: Present: normal affect, normal mood Skin exam: Present: warm, dry, intact, normal color. Absent: rash Course Vital Signs 02/13/24 02/13/24 02/13/24 18:56 20:00 21:00 Temperature 98.1 F Pulse Rate 68 66 69 Respiratory 18 18 18 Rate Blood Pressure 130/84 142/90 127/82 O2 Sat by Pulse 100 97 97 Oximetry Medical Decision Making - Lab Data Result diagrams: 02/13/24 19:46 02/13/24 19:46 Lab Results 02/13/24 02/13/24 02/13/24 Range/Units 19:46 19:46 19:46 WBC 5.6 (3.8-10.6) k/uL RBC 4.19 (3.80-5.40) m/uL Hgb 12.2 (11.4-16.0) gm/dL Hct 37.9 (34.0-46.0) % MCV 90.5 (80.0-100.0) fL MCH 29.2 (25.0-35.0) pg MCHC 32.2 (31.0-37.0) g/dL RDW 13.6 (11.5-15.5) % Plt Count 279 (150-450) k/uL MPV 9.5 Neutrophils % 67 % Lymphocytes % 22 % Monocytes % 5 % Eosinophils % 4 % Basophils % 0 % Neutrophils # 3.8 (1.3-7.7) k/uL Lymphocytes # 1.2 (1.0-4.8) k/uL Monocytes # 0.3 (0-1.0) k/uL Eosinophils # 0.2 (0-0.7) k/uL Basophils # 0.0 (0-0.2) k/uL PT 10.5 (10.0-12.5) sec INR 1.0 (<1.2) APTT 22.2 (22.0-30.0) sec Sodium 138 (137-145) mmol/L Potassium 3.9 (3.5-5.1) mmol/L Chloride 108 H (98-107) mmol/L Carbon Dioxide 22 (22-30) mmol/L Anion Gap 8 mmol/L BUN 8 (7-17) mg/dL Creatinine 0.83 (0.52-1.04) mg/dL Est GFR (CKD-EPI)AfAm >90 (>60 ml/min/1.73 sqM) Est GFR (CKD-EPI)NonAf >90 (>60 ml/min/1.73 sqM) Glucose 92 (74-99) mg/dL Plasma Lactic Acid Tyler (0.7-2.0) mmol/L Calcium 9.4 (8.4-10.2) mg/dL Total Bilirubin 0.4 (0.2-1.3) mg/dL AST 22 (14-36) U/L ALT 15 (4-34) U/L Alkaline Phosphatase 62 (38-126) U/L Troponin I (0.000-0.034) ng/mL Total Protein 6.1 L (6.3-8.2) g/dL Albumin 4.2 (3.5-5.0) g/dL 02/13/24 02/13/24 Range/Units 19:46 19:46 WBC (3.8-10.6) k/uL RBC (3.80-5.40) m/uL Hgb (11.4-16.0) gm/dL Hct (34.0-46.0) % MCV (80.0-100.0) fL MCH (25.0-35.0) pg MCHC (31.0-37.0) g/dL RDW (11.5-15.5) % Plt Count (150-450) k/uL MPV Neutrophils % % Lymphocytes % % Monocytes % % Eosinophils % % Basophils % % Neutrophils # (1.3-7.7) k/uL Lymphocytes # (1.0-4.8) k/uL Monocytes # (0-1.0) k/uL Eosinophils # (0-0.7) k/uL Basophils # (0-0.2) k/uL PT (10.0-12.5) sec INR (<1.2) APTT (22.0-30.0) sec Sodium (137-145) mmol/L Potassium (3.5-5.1) mmol/L Chloride (98-107) mmol/L Carbon Dioxide (22-30) mmol/L Anion Gap mmol/L BUN (7-17) mg/dL Creatinine (0.52-1.04) mg/dL Est GFR (CKD-EPI)AfAm (>60 ml/min/1.73 sqM) Est GFR (CKD-EPI)NonAf (>60 ml/min/1.73 sqM) Glucose (74-99) mg/dL Plasma Lactic Acid Tyler 0.6 L (0.7-2.0) mmol/L Calcium (8.4-10.2) mg/dL Total Bilirubin (0.2-1.3) mg/dL AST (14-36) U/L ALT (4-34) U/L Alkaline Phosphatase (38-126) U/L Troponin I <0.012 (0.000-0.034) ng/mL Total Protein (6.3-8.2) g/dL Albumin (3.5-5.0) g/dL - EKG Data -: EKG Interpreted by Me EKG Comments: EKG reveals normal sinus rhythm with no ST changes. Ventricular rate 62 bpm, RI interval 178, QRS duration 100, QT/QTc 419/425 Disposition Clinical Impression: Exacerbation of multiple sclerosis Disposition: HOME SELF-CARE Condition: Stable Instructions (If sedation given, give patient instructions): Multiple Sclerosis (DC) Additional Instructions: Follow-up with your neurologist as discussed. Start steroids tomorrow. Please return to the Emergency Department if symptoms worsen or any other concerns. Prescriptions: predniSONE [Deltasone] 40 mg PO DAILY #10 tab Is patient prescribed a controlled substance at d/c from ED?: No Referrals: Parminder Torres DO [Primary Care Provider] - 1-2 days Time of Disposition: 22:57
[2024-02-13 20:12] LABS: ALT 15 U/L (4-34); AST 22 U/L (14-36); African American GFR (CKD) >90 (>60 ml/min/1.73 sqM); Albumin 4.2 g/dL (3.5-5.0); Alkaline Phosphatase 62 U/L (38-126); Anion Gap 8 mmol/L; Blood Urea Nitrogen 8 mg/dL (7-17); Calcium 9.4 mg/dL (8.4-10.2); Carbon Dioxide 22 mmol/L (22-30); Chloride 108 mmol/L (98-107); Glucose 92 mg/dL (74-99); Non-African American GFR(CKD) >90 (>60 ml/min/1.73 sqM); Potassium 3.9 mmol/L (3.5-5.1); Sodium 138 mmol/L (137-145); Total Bilirubin 0.4 mg/dL (0.2-1.3); Total Protein 6.1 g/dL (6.3-8.2)
[2024-02-13 20:18] LABS: Partial Thromboplastin Time 22.2 sec (22.0-30.0); Prothrombin Time 10.5 sec (10.0-12.5)
--- NOTE | 2024-02-13 20:32 | CT ---
EXAMINATION TYPE: CT brain wo con DATE OF EXAM: 02/13/2024 COMPARISON: 10/14/2022 INDICATION: ams DLP: 1074.7 mGycm, Automated exposure control for dose reduction was used. CONTRAST: None CT of the brain is performed utilizing 3 mm thick sections through the posterior fossa and 3 mm thick sections through the remaining calvarium. Study is performed within 24 hours of arrival to the hosp [facility]. No abnormal hyperdensity is present to suggest an acute intracranial hemorrhage. No mass lesion is evident. No acute infarcts are evident. Ventricles and sulci are appropriate for the patient age. Paranasal sinuses and mastoid air cells within the [id number] are clear. IMPRESSION: 1. No acute intracranial process. Follow up MRI can be performed as clinically indicated. [facility], Workstation: [id number], 02/13/2024 8:30 PM
[2024-02-13] MEDS: methylPREDNISolone SOD SUCCI 125 MG/2 ML VIAL IV STA (21:26)
[2024-02-13] MEDS: methylPREDNISolone SOD SUCCI 125 MG/2 ML VIAL IM ONE (21:36)
[2024-02-13] MEDS: ACETAMINOPHEN TAB 500 MG TAB PO STA (22:48)
[2024-02-13] MEDS: METOCLOPRAMIDE 5 MG/ML 2 ML VIAL IM STA (22:49)
[2024-02-13 23:24] VITALS: PULSE 67
[2024-02-13] MEDS: KETOROLAC 15 MG/ML 1 ML VIAL IM STA (23:30)
[2024-02-13 23:41] VITALS: BP 114/64; RESP 16; TEMP 97.9
== END 2024-02-13 23:39 | disposition home or self-care (01) ==
LOC: EC 18:30
CPT/HCPCS: 36415; 70450; 80053; 83605; 84484; 85025; 85610; 85730; 93005; 96372; 99285

== ENCOUNTER 2024-04-01 22:48 | Emergency (ER) | payer OTHER ==
[2024-04-01 22:53] VITALS: TEMP 98.4
--- NOTE | 2024-04-02 00:01 | ED ---
Abdominal Pain HPI - General Chief Complaint: Abdominal Pain Stated Complaint: ABD Pain Time Seen by Provider: 04/01/24 23:59 Source: patient, RN notes reviewed Mode of arrival: ambulatory Limitations: no limitations - History of Present Illness Initial Comments: 28-year-old female the past medical history significant of multiple sclerosis presenting to the ER with a chief complaint of left flank pain. Patient states for the past 2 weeks to 1 month she has been having a achy/sharp left flank pain. She noticed a couple days ago she started to notice similar pain in her right flank. She does report pain increases with movement and bending forward. She states about a week ago she started to experience a pressure sensation in her bladder. She is also concerned she may have a UTI and/or yeast infection due to an intermittent burning sensation to vaginal region. She denies any hematuria, increase in frequency or hematuria. Patient denies any known fevers or chills. Patient denies any injuries or traumas. Patient denies a history of kidney disease or kidney stones. Patient denies any chest pain, shortness of breath, cough, congestion, abdominal pain, constipation. She does report intermittent diarrhea over the past week. No hematochezia or melena. No peripheral edema. - Related Data Home Medications Medication Instructions Recorded Confirmed Zonisamide 100 mg PO BID@1200,2100 04/06/15 08/08/22 Butalb/APAP/Caff 50-325-40Mg 1 tab PO Q6H PRN 10/05/18 08/08/22 [Fioricet 50-325-40] Galcanezumab-Gnlm [Emgality Pen] 120 mg SQ Q30D 03/21/19 08/08/22 HYDROcodone/APAP 10-325MG [[place] 1 tab PO TID 07/04/20 08/08/22 10-325] Montelukast Sodium [Singulair] 10 mg PO HS 07/04/20 08/08/22 Levothyroxine Sodium [Synthroid] 50 mcg PO DAILY 08/04/20 08/08/22 Ocrevus 1 dose IV Q180D 10/15/20 08/08/22 Albuterol Sulfate [Proventil Hfa] 2 puff INHALATION RT-QID PRN 10/25/20 08/08/22 Baclofen [Lioresal] 20 mg PO TID 10/25/20 08/08/22 Oxybutynin Chloride [oxyBUTYnin 10 mg PO HS 10/25/20 08/08/22 chloride ER] Gabapentin 600 mg PO QID 01/15/21 08/08/22 Aspirin EC [Ecotrin Low Dose] 81 mg PO DAILY 04/28/21 08/08/22 Omeprazole 40 mg PO BID 04/28/21 08/08/22 Ondansetron Odt [Zofran ODT] 4 mg PO Q12H PRN 04/28/21 08/08/22 Multivit with Calcium,Iron,Min 1 tab PO DAILY 06/26/21 08/08/22 [Women's Multivitamin] hydrOXYzine pamoate [Vistaril] 50 mg PO TID 08/21/21 08/08/22 Desvenlafaxine [Pristiq ER] 100 mg PO DAILY 01/03/22 08/08/22 Promethazine [Phenergan] 12.5 mg PO BID PRN 01/03/22 08/08/22 busPIRone HCL 15 mg PO QID 01/03/22 08/08/22 Cholecalciferol [Vitamin D3 (25 50 mcg PO DAILY 08/08/22 08/08/22 Mcg = 1000 Iu)] Fluticasone Propionate [Flovent 2 puff INHALATION RT-BID PRN 08/08/22 08/08/22 Hfa 220 mcg] Loratadine 10 mg PO DAILY 08/08/22 08/08/22 Meclizine [Antivert] 25 mg PO BID PRN 08/08/22 08/08/22 Propranolol [Inderal] 20 mg PO BID 08/08/22 08/08/22 Ubrogepant [Ubrelvy] 100 mg PO BID PRN 08/08/22 08/08/22 buPROPion XL [Wellbutrin XL] 150 mg PO DAILY 08/08/22 08/08/22 Previous Rx's Medication Instructions Recorded Sucralfate [Carafate] 1 gm PO BID #60 tablet 08/22/21 predniSONE 50 mg PO DAILY 5 Days #5 tablet 08/08/22 Cyclobenzaprine [Flexeril] 10 mg PO HS PRN #20 tab 08/14/22 Lidocaine 5% Patch [Lidoderm 5% 1 patch TOPICAL DAILY PRN #1 pack 08/14/22 Patch] methylPREDNISolone Dose Pack 4 mg PO DIRECTED #1 packet 08/14/22 [Medrol Dose Pack] Dicyclomine [Bentyl] 10 mg PO TID PRN 7 Days #21 capsule 05/08/23 predniSONE [Deltasone] 40 mg PO DAILY #10 tab 02/13/24 Allergies Allergy/AdvReac Type Severity Reaction Status Date / Time codeine Allergy Anaphylaxis Verified 04/01/24 22:54 peanut Allergy Anaphylaxis Verified 04/01/24 22:54 aspartame AdvReac Diarrhea Verified 04/01/24 22:54 fingolimod [From [employer]] AdvReac Abdominal Verified 04/01/24 22:54 Pain ibuprofen AdvReac Abdominal Verified 04/01/24 22:54 Pain lactose AdvReac Nausea & Verified 04/01/24 22:54 Vomiting & Diarrhea Review of Systems ROS Statement: Those systems with pertinent positive or pertinent negative responses have been documented in the HPI. ROS Other: All systems not noted in ROS Statement are negative. 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, Multiple Sclerosis dx November 2018, pt states left leg weak and uses walker ., Bladder retention, frequent flares with panniculitis (worse since weight loss); SEE DR NICK'S HISTORY REGARDING CARDIAC HISTORY History of Any Multi-Drug Resistant Organisms: MRSA Date of last positivie culture/infection: 11/08/17 MDRO Source:: LT INNER THIGH Past Surgical History: Bariatric Surgery, Cholecystectomy, Ear Surgery Additional Past Surgical History / Comment(s): tubes in ears, EGD, laparoscopic kimberly-en-y 02-08-2018 , EGD with dilation Past Anesthesia/Blood Transfusion Reactions: No Reported Reaction Past Psychological History: Anxiety, Depression, PTSD Smoking Status: Never smoker Past Alcohol Use History: None Reported Past Drug Use History: None Reported - Past Family History Mother Family Medical History: Diabetes Mellitus Father Family Medical History: Unable to Obtain General Exam Limitations: no limitations Course Vital Signs 04/01/24 04/02/24 22:49 02:55 Temperature 98.4 F Pulse Rate 74 71 Respiratory 20 16 Rate Blood Pressure 136/99 115/73 O2 Sat by Pulse 98 98 Oximetry Medical Decision Making - Medical Decision Making Was pt. sent in by a medical professional or institution (, PA, MEAT CARRIER, urgent care, hospital, or penitentiary...) When possible be specific @ -No Did you speak to anyone other than the patient for history (EMS, parent, family, police, friend...)? What history was obtained from this source @ -No Did you review nursing and triage notes (agree or disagree)? Why? @ -I reviewed and agree with nursing and triage notes Were old charts reviewed (outside hosp., previous admission, EMS record, old EKG, old radiological studies, urgent care reports/EKG's, penitentiary records)? Report findings @ -No old charts were reviewed Differential Diagnosis (chest pain, altered mental status, abdominal pain women, abdominal pain men, vaginal bleeding, weakness, fever, dyspnea, syncope, headache, dizziness, GI bleed, back pain, seizure, CVA, palpatations, mental health, musculoskeletal)? @ -Viral illness, diverticulitis, pyelonephritis, nephrolithiasis, UTI, musculoskeletal... This is not meant to be all-inclusive EKG interpreted by me (3pts min.). @ -None done X-rays interpreted by me (1pt min.). @ -None done CT interpreted by me (1pt min.). @ -None done U/S interpreted by me (1pt. min.). @ -None done What testing was considered but not performed or refused? (CT, X-rays, U/S, labs)? Why? @ -CT abdomen pelvis considered but not performed as laboratory studies are unremarkable and patient has had numerous scans in the past. Patient is agreeable to this. What meds were considered but not given or refused? Why? @ -None Did you discuss the management of the patient with other professionals (professionals i.e. , ROBSON, MEAT CARRIER, lab, RT, psych nurse, protective services social worker, sole molder, teacher, records officer, case hardener)? Give summary @ -No Was smoking cessation discussed for >3mins.? @ -No Was critical care preformed (if so, how long)? @ -No Were there social determinants of health that impacted care today? How? (Homelessness, low income, unemployed, alcoholism, drug addiction, transportation, low edu. Level, literacy, decrease access to med. care, penitentiary, re hab)? @ -No Was there de-escalation of care discussed even if they declined (Discuss DNR or withdrawal of care, Hospice)? DNR status @ -No What co-morbidities impacted this encounter? (DM, HTN, Smoking, COPD, CAD, Cancer, CVA, ARF, Chemo, Hep., AIDS, mental health diagnosis, sleep apnea, morbid obesity)? @ -Multiple sclerosis Was patient admitted / discharged? Hospital course, mention meds given and route, prescriptions, significant lab abnormalities, going to OR and other pertinent info. @ -Discharge. 28-year-old female presenting to the ER with a chief complaint of left flank pain. History and physical exam completed. Vitals within normal limits. Patient in no signs of acute distress nontoxic-appearing. Exam remarkable bilateral CVA tenderness. No abdominal pain. No overlying skin changes. Laboratory studies and urinalysis will be obtained prior to CT imaging as patient has had numerous CT scans in the past. Patient is agreeable to this. CBC unremarkable. CMP unimpressive. BUN 15, creatinine 0.69 with a GFR greater than 90. Urinalysis contaminated with 9 epithelial cells. There are 11 WBCs and large leukocyte esterases with rare bacteria. hCG negative. Patient received symptomatic control in the ER with IV fluids, Toradol and IV Dilaudid. Upon reevaluation, patient resting comfortably in exam room no signs of acute distress. Results discussed with patient, all questions answered. Patient reporting improved pain. Patient is agreeable to forego imaging at this time. Patient is stable for discharge. Strict return parameters discussed. Patient discharged in stable condition with follow-up to PCP. Patient verbally expressed understanding and agreement with care plan. Case discussed with ED attending, Dr. Hoang. Undiagnosed new problem with uncertain prognosis? @ -No Drug Therapy requiring intensive monitoring for toxicity (Heparin, Nitro, Insulin, Cardizem)? @ -No Were any procedures done? @ -No Diagnosis/symptom? @ -Flank pain Acute, or Chronic, or Acute on Chronic? @ -Acute Uncomplicated (without systemic symptoms) or Complicated (systemic symptoms)? @ -Uncomplicated Side effects of treatment? @ -No Exacerbation, Progression, or Severe Exacerbation? @ -No Poses a threat to life or bodily function? How? (Chest pain, [place], [place], pneumonia, PE, COPD, DKA, ARF, appy, cholecystitis, CVA, Diverticulitis, Homicidal, Suicidal, threat to staff... and all critical care pts) @ -No - Lab Data Result diagrams: 04/02/24 00:16 04/02/24 00:16 Lab Results 04/02/24 04/02/24 04/02/24 Range/Units 00:16 00:16 00:16 WBC 5.5 (3.8-10.6) k/uL RBC 4.18 (3.80-5.40) m/uL Hgb 12.0 (11.4-16.0) gm/dL Hct 37.9 (34.0-46.0) % MCV 90.6 (80.0-100.0) fL MCH 28.8 (25.0-35.0) pg MCHC 31.8 (31.0-37.0) g/dL RDW 13.4 (11.5-15.5) % Plt Count 223 (150-450) k/uL MPV 10.8 Neutrophils % 58 % Lymphocytes % 27 % Monocytes % 7 % Eosinophils % 7 % Basophils % 0 % Neutrophils # 3.2 (1.3-7.7) k/uL Lymphocytes # 1.5 (1.0-4.8) k/uL Monocytes # 0.4 (0-1.0) k/uL Eosinophils # 0.4 (0-0.7) k/uL Basophils # 0.0 (0-0.2) k/uL Sodium (137-145) mmol/L Potassium (3.5-5.1) mmol/L Chloride (98-107) mmol/L Carbon Dioxide (22-30) mmol/L Anion Gap mmol/L BUN (7-17) mg/dL Creatinine (0.52-1.04) mg/dL Est GFR (CKD-EPI)AfAm (>60 ml/min/1.73 sqM) Est GFR (CKD-EPI)NonAf (>60 ml/min/1.73 sqM) Glucose (74-99) mg/dL Calcium (8.4-10.2) mg/dL Total Bilirubin (0.2-1.3) mg/dL AST (14-36) U/L ALT (4-34) U/L Alkaline Phosphatase (38-126) U/L Total Protein (6.3-8.2) g/dL Albumin (3.5-5.0) g/dL Urine Color Colorless Urine Appearance Clear (Clear) Urine pH 6.0 (5.0-8.0) Ur Specific [place] 1.024 (1.001-1.035) Urine Protein Negative (Negative) Urine Glucose (UA) Negative (Negative) Urine Ketones Negative (Negative) Urine Blood Negative (Negative) Urine Nitrite Negative (Negative) Urine Bilirubin Negative (Negative) Urine Urobilinogen <2.0 (<2.0) mg/dL Ur Leukocyte Esterase Large H (Negative) Urine RBC 2 (0-5) /hpf Urine WBC 11 H (0-5) /hpf Ur Squamous Epith Cells 9 H (0-4) /hpf Urine Bacteria Rare H (None) /hpf Urine Mucus Rare H (None) /hpf Urine HCG, Qual Not Detected (Not Detectd) 04/02/24 Range/Units 00:16 WBC (3.8-10.6) k/uL RBC (3.80-5.40) m/uL Hgb (11.4-16.0) gm/dL Hct (34.0-46.0) % MCV (80.0-100.0) fL MCH (25.0-35.0) pg MCHC (31.0-37.0) g/dL RDW (11.5-15.5) % Plt Count (150-450) k/uL MPV Neutrophils % % Lymphocytes % % Monocytes % % Eosinophils % % Basophils % % Neutrophils # (1.3-7.7) k/uL Lymphocytes # (1.0-4.8) k/uL Monocytes # (0-1.0) k/uL Eosinophils # (0-0.7) k/uL Basophils # (0-0.2) k/uL Sodium 138 (137-145) mmol/L Potassium 4.1 (3.5-5.1) mmol/L Chloride 115 H (98-107) mmol/L Carbon Dioxide 15 L (22-30) mmol/L Anion Gap 8 mmol/L BUN 15 (7-17) mg/dL Creatinine 0.69 (0.52-1.04) mg/dL Est GFR (CKD-EPI)AfAm >90 (>60 ml/min/1.73 sqM) Est GFR (CKD-EPI)NonAf >90 (>60 ml/min/1.73 sqM) Glucose 82 (74-99) mg/dL Calcium 9.3 (8.4-10.2) mg/dL Total Bilirubin 0.4 (0.2-1.3) mg/dL AST 31 (14-36) U/L ALT 26 (4-34) U/L Alkaline Phosphatase 54 (38-126) U/L Total Protein 6.1 L (6.3-8.2) g/dL Albumin 4.2 (3.5-5.0) g/dL Urine Color Urine Appearance (Clear) Urine pH (5.0-8.0) Ur Specific [place] (1.001-1.035) Urine Protein (Negative) Urine Glucose (UA) (Negative) Urine Ketones (Negative) Urine Blood (Negative) Urine Nitrite (Negative) Urine Bilirubin (Negative) Urine Urobilinogen (<2.0) mg/dL Ur Leukocyte Esterase (Negative) Urine RBC (0-5) /hpf Urine WBC (0-5) /hpf Ur Squamous Epith Cells (0-4) /hpf Urine Bacteria (None) /hpf Urine Mucus (None) /hpf Urine HCG, Qual (Not Detectd) Disposition Clinical Impression: Flank pain Disposition: HOME SELF-CARE Condition: Stable Instructions (If sedation given, give patient instructions): Flank Pain (ED) Additional Instructions: Follow-up with PCP. Return to the ER for any new or worsening concerns Is patient prescribed a controlled substance at d/c from ED?: No Referrals: Parminder Torres DO [Primary Care Provider] - 1-2 days Time of Disposition: 02:47
[2024-04-02] MEDS: ONDANSETRON 4 MG/2 ML VIAL IVP STA (00:30)
[2024-04-02] MEDS: KETOROLAC 15 MG/ML 1 ML VIAL IVP STA (00:30)
[2024-04-02] MEDS: SODIUM CHLORIDE 0.9% 1,000 ML IV STA (00:30)
[2024-04-02 00:44] LABS: Basophils % (A) 0 %; Eosinophils # (A) 0.4 k/uL (0-0.7); Eosinophils % (A) 7 %; HCT 37.9 % (34.0-46.0); Lymphocytes # (A) 1.5 k/uL (1.0-4.8); Lymphocytes % (A) 27 %; MCH 28.8 pg (25.0-35.0); MCHC 31.8 g/dL (31.0-37.0); MCV 90.6 fL (80.0-100.0); Mean Platelet Volume 10.8; Monocytes # (A) 0.4 k/uL (0-1.0); Monocytes % (A) 7 %; Neutrophils # (A) 3.2 k/uL (1.3-7.7); Neutrophils % (A) 58 %; Platelet Count 223 k/uL (150-450); RBC 4.18 m/uL (3.80-5.40); RDW 13.4 % (11.5-15.5); WBC 5.5 k/uL (3.8-10.6)
[2024-04-02 00:57] LABS: ALT 26 U/L (4-34); AST 31 U/L (14-36); African American GFR (CKD) >90 (>60 ml/min/1.73 sqM); Albumin 4.2 g/dL (3.5-5.0); Alkaline Phosphatase 54 U/L (38-126); Anion Gap 8 mmol/L; Blood Urea Nitrogen 15 mg/dL (7-17); Calcium 9.3 mg/dL (8.4-10.2); Carbon Dioxide 15 mmol/L (22-30); Chloride 115 mmol/L (98-107); Glucose 82 mg/dL (74-99); Non-African American GFR(CKD) >90 (>60 ml/min/1.73 sqM); Sodium 138 mmol/L (137-145); Total Bilirubin 0.4 mg/dL (0.2-1.3); Total Protein 6.1 g/dL (6.3-8.2)
[2024-04-02 01:20] LABS: Appearance,Urine Clear (Clear); Bacteria,Urine Rare /hpf; Bilirubin,Urine Negative (Negative); Blood,Urine Negative (Negative); Color,Urine Colorless; Glucose,Urine (UA) Negative (Negative); Ketones,Urine Negative (Negative); Leukocyte Esterase,Urine Large (Negative); Mucus,Urine Rare /hpf; Nitrite,Urine Negative (Negative); Protein,Urine Negative (Negative); RBC,Urine 2 /hpf (0-5); Specific Gravity,Urine 1.024 (1.001-1.035); Squamous Epithelial Cell,Urine 9 /hpf (0-4); Urobilinogen,Urine <2.0 mg/dL (<2.0); WBC,Urine 11 /hpf (0-5)
[2024-04-02 01:31] LABS: Potassium 4.1 mmol/L (3.5-5.1)
[2024-04-02] MEDS: HYDROmorphone 1 MG/ML 1 ML SYRINGE IVP STA (02:03)
[2024-04-02 02:58] VITALS: BP 115/73; PULSE 71; RESP 16
== END 2024-04-02 02:55 | disposition home or self-care (01) ==
LOC: EC 22:48
DX: R10.30 Lower abdominal pain, unspecified (principal); Z88.6 Allergy status to analgesic agent; Z91.010 Allergy to peanuts; Z88.8 Allergy status to other drugs, medicaments and biological substances; Z88.5 Allergy status to narcotic agent; Z91.011 Allergy to milk products
CPT/HCPCS: 36415; 80053; 85025; 81001; 81025; 99284; 96374; 96375 ×2; 96361; J2405; J1171; J1885

== ENCOUNTER → 2024-04-27 | Outpatient (CLI) | payer OTHER ==
--- NOTE | 2024-04-27 16:41 | XR ---
EXAMINATION TYPE: XR KUB DATE OF EXAM: 04/27/2024 4:36 PM COMPARISON: None CLINICAL INDICATION: Female, 28 years old with history of M54.50 LOW BACK PAIN, UNSPEC; PHH TECHNIQUE: One radiographic view of the abdomen was obtained. FINDINGS: The bowel gas pattern is nonspecific without dilated loops of small or large bowel. . Fecal material and gas are demonstrated throughout the colon and rectum. There is no evidence for organome latanya or pneumoperitoneum. The osseous structures are intact. No abnormal calcifications are present . IMPRESSION: Nonspecific bowel gas pattern without radiographic evidence for acute process. [facility], , 04/27/2024 4:39 PM
== END | disposition home or self-care (01) ==
LOC: RADXRMAIN 16:12
PROVIDERS: ATTEND Family Medicine
DX: M54.50 Low back pain, unspecified (principal)
CPT/HCPCS: 74018

== ENCOUNTER 2024-08-04 12:41 | Day surgery (SDC) | payer OTHER ==
--- NOTE | 2024-08-04 12:38 | P.GSHP ---
History of Present Illness H&P Date: 08/04/24 CHIEF COMPLAINT: History of intra-abdominal adhesions HISTORY OF PRESENT ILLNESS: The patient is a 29-year-old female who presents with history of intra-abdominal adhesions from multiple prior surgeries including increasing abdominal pain. She now presents for diagnostic laparoscopy including lysis of adhesions. PAST MEDICAL HISTORY: Please see list. PAST SURGICAL HISTORY: Please see list. MEDICATIONS: Please see list. ALLERGIES: Please see list. SOCIAL HISTORY: No illicit drug use FAMILY HISTORY: No reports of Crohn disease or ulcerative colitis. REVIEW OF ORGAN SYSTEMS: CONSTITUTIONAL: Denies any fever or chills. Denies recent weight loss or weight gain. HEENT: Denies any trouble with vision, hearing or nosebleeds. No difficulty swallowing. LYMPHATIC: The patient denies any lumps and bumps around the neck. ENDOCRINE: Denies any thyroid disorders. Denies any blood sugar glucose intolerance. RESPIRATORY: Denies pneumonia. Denies any troubles with breathing or dyspnea on exertion. CARDIOVASCULAR: Denies any chest pain, palpitations, or recent heart attacks. GASTROINTESTINAL: Denies heart burn, constipation or bright red blood per rectum. GENITOURINARY: Denies any blood in urine or increased urinary frequency. MUSCULOSKELETAL: Denies any back pain, stiffness, joint arthritis. NEUROLOGIC: Denies any numbness or tingling along the distal extremities. No seizure disorders or headaches. PSYCHIATRIC: Denies depression or suidical ideation. HEMATOLOGIC: Denies any abnormal bleeding or bruising. BREASTS: Denies any breast lumps, pain or nipple discharge. PHYSICAL EXAM: GENERAL: Well-developed pleasant male in no acute distress. HEENT: No scleral icterus. Extraocular movements grossly intact. Moist buccal mucosa. NECK: Supple without lymphadenopathy. CHEST: Unlabored respirations. Equal bilateral excursions. CARDIOVASCULAR: Regular rate and rhythm. Distal 2+ pulses. ABDOMEN: Soft, nondistended. Tender generalized abdominal pain. MUSCULOSKELETAL: No clubbing, cyanosis, or edema. SKIN: Well perfused. PSYCH: Alert and oriented to self, place and time ASSESSMENT: 1. Diffuse abdominal pain. 2. History of multiple abdominal surgeries. 3. Intra-abdominal adhesions. PLAN: 1. Robotic lysis of adhesions were described in detail including risk of injury to the intestine, need for further surgery, and open technique. 2. DVT prophylaxis. 3. Antibiotic prophylaxis. Past Medical History Past Medical History: Asthma, Chest Pain / Angina, Deep Vein Thrombosis (DVT), GERD/Reflux, Memory Impairment, Musculoskeletal Disorder, Pneumonia, Pulmonary Embolus (PE), Sleep Apnea/CPAP/BIPAP, Syncope, Thyroid Disorder Additional Past Medical History / Comment(s): migraines, DDD- pain, IBS, overactive bladder, gastrojejunal ulcer (dx 03-26-)., intermittent mild lower extremity weakness, pt recieved thiamine infusion secondary to Wernicke- Karsakoff syndrome- before MS dx , Multiple Sclerosis dx November 2018, pt states left leg weak , hx panniculitis (worse since weight loss) improved; SEE DR NICK'S HISTORY REGARDING CARDIAC HISTORY. forgets to wear cpap. some short term memory issues at recently tx for sinus and OM. History of Any Multi-Drug Resistant Organisms: MRSA Date of last positivie culture/infection: 11/08/17 MDRO Source:: LT INNER THIGH Past Surgical History: Bariatric Surgery, Cholecystectomy, Ear Surgery Additional Past Surgical History / Comment(s): tubes in ears, EGD, laparoscopic kimberly-en-y 02-08-2018 , EGD with dilation Past Anesthesia/Blood Transfusion Reactions: No Reported Reaction Additional Past Anesthesia/Blood Transfusion Reaction / Comment(s): no blood transfusions Smoking Status: Never smoker - Past Family History Mother Family Medical History: Diabetes Mellitus Father Family Medical History: Unable to Obtain Medications and Allergies Home Medications Medication Instructions Recorded Confirmed Type Zonisamide 100 mg PO BID@1200,2100 04/06/15 08/01/24 History Butalb/APAP/Caff 50-325-40Mg 1 tab PO Q6H PRN 10/05/18 08/01/24 History [Fioricet 50-325-40] Galcanezumab-Gnlm [Emgality Pen] 120 mg SQ Q30D 03/21/19 08/01/24 History HYDROcodone/APAP 10-325MG [[place] 1 tab PO TID 07/04/20 08/01/24 History 10-325] Montelukast Sodium [Singulair] 10 mg PO HS 07/04/20 08/01/24 History Levothyroxine Sodium [Synthroid] 50 mcg PO DAILY 08/04/20 08/01/24 History Ocrevus 1 dose IV Q180D 10/15/20 08/01/24 History Albuterol Sulfate [Proventil Hfa] 2 puff INHALATION RT-QID PRN 10/25/20 08/01/24 History Baclofen [Lioresal] 20 mg PO TID 10/25/20 08/01/24 History Oxybutynin Chloride [oxyBUTYnin 10 mg PO HS 10/25/20 08/01/24 History chloride ER] Gabapentin 600 mg PO QID 01/15/21 08/01/24 History Aspirin EC [Ecotrin Low Dose] 81 mg PO DAILY 04/28/21 08/01/24 History Omeprazole 40 mg PO BID 04/28/21 08/01/24 History Ondansetron Odt [Zofran ODT] 4 mg PO Q12H PRN 04/28/21 08/01/24 History Multivit with Calcium,Iron,Min 1 tab PO DAILY 06/26/21 08/01/24 History [Women's Multivitamin] Sucralfate [Carafate] 1 gm PO BID #60 tablet 08/22/21 08/01/24 Rx Desvenlafaxine [Pristiq ER] 100 mg PO DAILY 01/03/22 08/01/24 History Promethazine [Phenergan] 12.5 mg PO BID PRN 01/03/22 08/01/24 History busPIRone HCL 15 mg PO QID 01/03/22 08/01/24 History Fluticasone Propionate [Flovent 2 puff INHALATION RT-BID PRN 08/08/22 08/01/24 History Hfa 220 mcg] Loratadine 10 mg PO DAILY 08/08/22 08/01/24 History Meclizine [Antivert] 25 mg PO BID PRN 08/08/22 08/01/24 History Propranolol [Inderal] 20 mg PO BID 08/08/22 08/01/24 History Ubrogepant [Ubrelvy] 100 mg PO BID PRN 08/08/22 08/01/24 History buPROPion XL [Wellbutrin XL] 150 mg PO DAILY 08/08/22 08/01/24 History Ergocalciferol [Vitamin D2 (1250 1,250 mcg PO WEEKLY 08/01/24 08/01/24 History Mcg = 63550 Iu)] Tirzepatide [Zepbound] 5 mg SQ WE 08/01/24 08/01/24 History Allergies Allergy/AdvReac Type Severity Reaction Status Date / Time adhesive tape Allergy red skin Verified 08/01/24 12:41 codeine Allergy Anaphylaxis Verified 08/01/24 11:55 peanut Allergy Anaphylaxis Verified 08/01/24 11:55 aspartame AdvReac Diarrhea Verified 08/01/24 11:55 fingolimod [From [employer] software] AdvReac Abdominal Verified 08/01/24 11:55 Pain ibuprofen AdvReac Abdominal Verified 08/01/24 11:55 Pain lactose AdvReac Nausea & Verified 08/01/24 11:55 Vomiting & Diarrhea
[~2024-08-04 12:41] MED LIST changes: +Pre Op ABX Message 1 EACH MISC MISCELLANE ONE; -SODIUM CHLORIDE 0.9% 1,000 ML IV SCH; +ceFAZolin 3 GM in SODIUM CHLORIDE 0.9% 100 ML IVPB STA
[2024-08-04] MEDS: IV FLUID CONTINUATION 1,000 ML IV ONE ×2 (13:15→16:16)
[2024-08-04 13:34] VITALS: TEMP 97.1
[2024-08-04] MEDS: LIDOCAINE 1%-EPI 1:100,000 20 ML VIAL SQ ONE ×2 (14:04→15:02)
[2024-08-04] MEDS: DEXAMETHASONE SOD PHOSPHATE 4 MG/ML 1 ML VIAL IVP STA (14:05)
[2024-08-04] MEDS: SCOPOLAMINE 1 MG/72 HR PATCH TRANSDERM STA (14:05)
[2024-08-04] MEDS: ONDANSETRON 4 MG/2 ML VIAL IVP PRN (14:06)
[2024-08-04] MEDS: ACETAMINOPHEN TAB 500 MG TAB PO STA (14:06)
[2024-08-04] MEDS: LACTATED RINGERS 1,000 ML IV SCH (14:07)
[2024-08-04] MEDS: MIDAZOLAM 2 MG/2 ML VIAL IV ONE (14:12)
[2024-08-04] MEDS: fentaNYL (PF) 50 MCG/ML 2 ML AMP IV PRN (14:13)
[2024-08-04] MEDS: HEPARIN SODIUM,PORCINE 5,000 UNIT/ML 1 ML VIAL SQ STA (14:14)
[2024-08-04 14:19] LABS: Glucose,Whole Blood 85 mg/dL (70-110)
[2024-08-04] MEDS ORDERED: GLYCOPYRROLATE 0.2 MG/ML 2 ML VIAL ONE (14:26)
[2024-08-04] MEDS ORDERED: LIDOCAINE 1% INJ 10MG/ML (20 ML MDV) ONE (14:26)
[2024-08-04] MEDS ORDERED: HYDROmorphone (PF) 1 MG/ML ONE (14:26)
[2024-08-04] MEDS ORDERED: ROPIVACAINE 5 MG/ML 30 ML VIAL ONE (14:26)
[2024-08-04] MEDS ORDERED: DEXAMETHASONE SOD PHOSPHATE 4 MG/ML 1 ML VIAL ONE (14:26)
[2024-08-04] MEDS ORDERED: MIDAZOLAM 2 MG/2 ML VIAL ONE (14:26)
[2024-08-04] MEDS ORDERED: PROPOFOL 10 MG/ML 20 ML VIAL IV ONE (14:26)
[2024-08-04] MEDS ORDERED: NEOSTIGMINE 1 MG/ML 10 ML VIAL ONE (14:26)
[2024-08-04] MEDS ORDERED: ROCURONIUM 10 MG/ML (5 ML VIAL) IV ONE (14:26)
[2024-08-04] MEDS ORDERED: fentaNYL (PF) 50 MCG/ML 2 ML AMP ONE (14:26)
[2024-08-04] MEDS ORDERED: SUCCINYLCHOLINE CHLORIDE 200 MG/10 ML VIAL IV ONE (14:26)
[2024-08-04] MEDS ORDERED: SODIUM CHLORIDE 0.9% (PF) 10 ML VIAL ONE (14:26)
[2024-08-04] MEDS: SODIUM CHLORIDE 0.9% 50 ML with ceFAZolin 3,000 MG IV ONE (14:29)
--- NOTE | 2024-08-04 14:29 | P.ANPRN ---
Procedure Note - Anesthesia - Nerve Block Performed Bilateral Erector Spinae Single Time Out Performed: Yes Date of Procedure: 08/04/24 Procedure Start Time: 14:10 Procedure Stop Time: 14:19 Location of Patient: PreOp Indication: Acute Post-Operative Pain, Requested by Surgeon Sedation Type: Sedate with meaningful contact maintained Preparation: Sterile Prep Position: Prone Needle Types: Pajunk Needle Gauge: 21 Ultrasound used to visualize needle placement: Yes Ultrasound used to observe medication spread: Yes Injectate: 0.5% Ropivacaine (see comment for volume) (20 mL +10 mL of normal saline +4 mg dexamethasone per side) Blood Aspirated: No Pain Paresthesia on Injection Noted: No Resistance on Injection: Normal Image Stored and Saved: Yes Events: Uneventful and Well Tolerated
--- NOTE | 2024-08-04 16:51 | P.OP ---
Date of Procedure: 08/04/24 Description of Procedure: SURGEON: TEZ SOLIS MD PREOPERATIVE DIAGNOSES: 1. Intractable left upper quadrant abdominal pain due to adhesions 2. Morbid obesity due to excess calories, Body mass index 61.5 down to 47.6 3. Irritable bowel syndrome. 4. Obstructive sleep apnea. 5. Osteoarthritis of the hips 6. Hypertensive heart disease. 7. Gastroesophageal reflux disease 8. Anxiety. 9. Depression. 10. Migraines. 11. Overactive bladder. 12. Chronic back pain. 13. Degenerative joint disease. 14. Asthma. 15. Multiple sclerosis 16. Weight gain following bariatric procedure 17. Abdominal pain, left upper quadrant 18. History of bowel obstruction 19. History of DVT 20. Status post gastric bypass. POSTOPERATIVE DIAGNOSES: 1. Intractable left upper quadrant abdominal pain due to adhesions 2. Morbid obesity due to excess calories, Body mass index 61.5 down to 47.6 3. Irritable bowel syndrome. 4. Obstructive sleep apnea. 5. Osteoarthritis of the hips 6. Hypertensive heart disease. 7. Gastroesophageal reflux disease 8. Anxiety. 9. Depression. 10. Migraines. 11. Overactive bladder. 12. Chronic back pain. 13. Degenerative joint disease. 14. Asthma. 15. Multiple sclerosis 16. Weight gain following bariatric procedure 17. Abdominal pain, left upper quadrant 18. History of bowel obstruction 19. History of DVT 20. Status post gastric bypass. OPERATION: 1. Robotic-assisted da Olga Xi laparoscopic with extensive lysis of adhesions over 1 hr 2. Robotic-assisted da Olga Xi laparoscopic closure of internal hernia ANESTHESIA: General, local, abdominal wall block ESTIMATED BLOOD LOSS: 5 mL. SPECIMENS REMOVED: None. COMPLICATIONS: None. OPERATIVE FINDINGS: 1. No ventral hernias identified. 2. Adhesion along the right lower quadrant small bowel to the pelvis 3. Long mesentery of the small bowel 4. Complete scarring of Garcia defect and jejunojejunostomy mesenteric defect 5. Abnormal adhesions of biliopancreatic limb jejunostomy to cecil limb divided at left upper quadrant contributing to abdominal pain INDICATIONS: The patient is a 29-year-old female who presents with epigastric abdominal pain including left upper quadrant abdominal pain. She has pre- existing history of bowel obstructions including adhesions surgical intervention with diagnostic laparoscopy, lysis of adhesions were described. Informed consent was obtained. Robotic assisted laparoscopic approach was described. Benefits and risks of the procedure including but not limited to bleeding, infection, injury to the small bowel was described. Informed consent was obtained. DESCRIPTION OF PROCEDURE: Patient was brought to the operating room, placed in supine position. After general induction, the abdomen had been prepped and draped in standard sterile fashion. The robotic da Olga XI system was primed. After a timeout protocol was performed, the patient had been prepped and draped in standard sterile fashion. The robot was docked along the right lateral abdomen. The patient was repositioned in with right side up. Please note prior to docking of the robot; however, a 5 mm 0 degrees laparoscopic trocar entry was performed along the left upper quadrant. The abdomen was insufflated to 15 mmHg pressure which she tolerated well. Diagnostic laparoscopy was performed. Next, three 8 mm robotic ports were placed along the right lateral abdominal wall. The camera 8-mm port was maintained along mid-lateral abdomen. Please note that the ports were placed at least 10 to 15 cm away from the target anatomy. Instruments including graspers and vessel sealer were interchanged by the assistant case manager. I had sat at the console. No small bowel dilation was identified. The small bowel from the cecil limb to distal ileum was inspected. The small bowel was investigated from the terminal ileum to the ligament of Treitz with finding of redundant mesentery. Abnormal adhesions to the jejunojejunostomy was identified and divided adherent to the Cecil limb. No herniation of bowel was found along the Garcia defect or jejunojejunostomy mesenteric defect. After takedown of abnormal lesions at the jejunojejunostomy, internal hernia was identified. A 12 mm laparoscopic trocar was upsized from a 5 mm trocar of the left upper quadrant. The internal hernia was closed using green 2-0 V-Loc. The terminal ileum and cecum was unremarkable. Extensive lysis of adhesions over 1 hr was performed. The small bowel was viable.The robot was undocked. All pneumoperitoneum instruments were evacuated from the abdominal cavity. The incisions were reapproximated using 4-0 Monocryl in an interrupted subcuticular fashion. Please note along the trocar sites, local anesthetic was placed as a field block prior to insertion of all instruments. Dermabond was applied to the skin. At the end of the procedure needle, sponge, and instrument count had been verified correct by the charge preparation technician. The patient was transferred to postanesthesia care unit in stable condition. Plan - Discharge Summary Discharge Rx Participant: No New Discharge Prescriptions: New Acetaminophen Tab [Tylenol Tab] 1,000 mg PO Q6HR PRN #30 tablet PRN Reason: Pain Simethicone [Gas-X] 125 mg PO AC-TID PRN #20 capsule PRN Reason: Pain Continue Zonisamide 100 mg PO BID@1200,2100 Butalb/APAP/Caff 50-325-40Mg [Fioricet 50-325-40] 1 tab PO Q6H PRN PRN Reason: Migraine Headache Galcanezumab-Gnlm [Emgality Pen] 120 mg SQ Q30D Montelukast Sodium [Singulair] 10 mg PO HS HYDROcodone/APAP 10-325MG [[place] 10-325] 1 tab PO TID Levothyroxine Sodium [Synthroid] 50 mcg PO DAILY Ocrevus 1 dose IV Q180D Baclofen [Lioresal] 20 mg PO TID Oxybutynin Chloride [oxyBUTYnin chloride ER] 10 mg PO HS Gabapentin 600 mg PO QID Aspirin EC [Ecotrin Low Dose] 81 mg PO DAILY Multivit with Calcium,Iron,Min [Women's Multivitamin] 1 tab PO DAILY Sucralfate [Carafate] 1 gm PO BID #60 tablet busPIRone HCL 15 mg PO QID Promethazine [Phenergan] 12.5 mg PO BID PRN PRN Reason: Nausea Meclizine [Antivert] 25 mg PO BID PRN PRN Reason: Nausea Fluticasone Propionate [Flovent Hfa 220 mcg] 2 puff INHALATION RT-BID PRN PRN Reason: Shortness Of Breath Tirzepatide [Zepbound] 5 mg SQ WE Albuterol Sulfate [Proventil Hfa] 2 puff INHALATION RT-QID PRN PRN Reason: Shortness Of Breath Ondansetron Odt [Zofran ODT] 4 mg PO Q12H PRN PRN Reason: Nausea Omeprazole 40 mg PO BID Desvenlafaxine [Pristiq ER] 100 mg PO DAILY Propranolol [Inderal] 20 mg PO BID Loratadine 10 mg PO DAILY Ubrogepant [Ubrelvy] 100 mg PO BID PRN PRN Reason: Migraine Headache buPROPion XL [Wellbutrin XL] 150 mg PO DAILY Ergocalciferol [Vitamin D2 (1250 Mcg = 41380 Iu)] 1,250 mcg PO WEEKLY Discharge Medication List Zonisamide 100 mg PO BID@1200,2100 04/06/15 [History] Butalb/APAP/Caff 50-325-40Mg [Fioricet 50-325-40] 1 tab PO Q6H PRN 10/05/18 [History] Galcanezumab-Gnlm [Emgality Pen] 120 mg SQ Q30D 03/21/19 [History] HYDROcodone/APAP 10-325MG [[place] 10-325] 1 tab PO TID 07/04/20 [History] Montelukast Sodium [Singulair] 10 mg PO HS 07/04/20 [History] Levothyroxine Sodium [Synthroid] 50 mcg PO DAILY 08/04/20 [History] Ocrevus 1 dose IV Q180D 10/15/20 [History] Albuterol Sulfate [Proventil Hfa] 2 puff INHALATION RT-QID PRN 10/25/20 [History] Baclofen [Lioresal] 20 mg PO TID 10/25/20 [History] Oxybutynin Chloride [oxyBUTYnin chloride ER] 10 mg PO HS 10/25/20 [History] Gabapentin 600 mg PO QID 01/15/21 [History] Aspirin EC [Ecotrin Low Dose] 81 mg PO DAILY 04/28/21 [History] Omeprazole 40 mg PO BID 04/28/21 [History] Ondansetron Odt [Zofran ODT] 4 mg PO Q12H PRN 04/28/21 [History] Multivit with Calcium,Iron,Min [Women's Multivitamin] 1 tab PO DAILY 06/26/21 [History] Sucralfate [Carafate] 1 gm PO BID #60 tablet 08/22/21 [Rx] Desvenlafaxine [Pristiq ER] 100 mg PO DAILY 01/03/22 [History] Promethazine [Phenergan] 12.5 mg PO BID PRN 01/03/22 [History] busPIRone HCL 15 mg PO QID 01/03/22 [History] Fluticasone Propionate [Flovent Hfa 220 mcg] 2 puff INHALATION RT-BID PRN 08/08/22 [History] Loratadine 10 mg PO DAILY 08/08/22 [History] Meclizine [Antivert] 25 mg PO BID PRN 08/08/22 [History] Propranolol [Inderal] 20 mg PO BID 08/08/22 [History] Ubrogepant [Ubrelvy] 100 mg PO BID PRN 08/08/22 [History] buPROPion XL [Wellbutrin XL] 150 mg PO DAILY 08/08/22 [History] Ergocalciferol [Vitamin D2 (1250 Mcg = 83026 Iu)] 1,250 mcg PO WEEKLY 08/01/24 [History] Tirzepatide [Zepbound] 5 mg SQ WE 08/01/24 [History] Acetaminophen Tab [Tylenol Tab] 1,000 mg PO Q6HR PRN #30 tablet 08/04/24 [Rx] Simethicone [Gas-X] 125 mg PO AC-TID PRN #20 capsule 08/04/24 [Rx] [facility]ment(s[facility]Ref[facility] [place] [facility] - 08/10/24 3:00 pm Patient Instructions/Handouts: Lysis of Abdominal Adhesions (DC) Activity/Diet/Wound Care/Special Instructions: NO LONG DRIVES OR AIRPLANE RIDES OVER 60 MINUTES FOR THE NEXT 2 WEEKS, 08/18/24, DUE TO HIGH RISK OF PULMONARY EMBOLISM/DVTs Using antibacterial soap. No lifting over 10 pounds 2 weeks, 08/18/24 May shower. No bathtub soaks for 2 weeks, 08/18/24, Use ice along incisions for today to prevent swelling. Take tylenol, simethicone scheduled for 3 days for best pain relief Discharge Disposition: HOME SELF-CARE
[2024-08-04] MEDS: HYDROcodone/APAP 10-325MG 1 EACH TAB PO ONE (17:14)
[2024-08-04 17:45] VITALS: BP 106/75; PULSE 64; RESP 16
== END 2024-08-04 18:24 | disposition home or self-care (01) ==
LOC: OR 12:41
PROVIDERS: ATTEND Surgery Plastic and Reconstructive Surgery
DX: K66.0 Peritoneal adhesions (postprocedural) (postinfection) (principal); K21.9 Gastro-esophageal reflux disease without esophagitis; K25.9 Gastric ulcer, unspecified as acute or chronic, without hemorrhage or perforation; I25.10 Atherosclerotic heart disease of native coronary artery without angina pectoris; I11.9 Hypertensive heart disease without heart failure; F41.9 Anxiety disorder, unspecified; F32.A Depression, unspecified; F43.10 Post-traumatic stress disorder, unspecified; E07.9 Disorder of thyroid, unspecified; E66.01 Morbid (severe) obesity due to excess calories; N32.81 Overactive bladder; J45.909 Unspecified asthma, uncomplicated; M16.0 Bilateral primary osteoarthritis of hip; G47.33 Obstructive sleep apnea (adult) (pediatric); G35 Multiple sclerosis; Z68.44 Body mass index [BMI] 60.0-69.9, adult; Z86.718 Personal history of other venous thrombosis and embolism; Z86.711 Personal history of pulmonary embolism; Z90.49 Acquired absence of other specified parts of digestive tract; Z83.3 Family history of diabetes mellitus; Z99.89 Dependence on other enabling machines and devices; Z88.6 Allergy status to analgesic agent; Z79.82 Long term (current) use of aspirin; Z79.890 Hormone replacement therapy; Z79.899 Other long term (current) drug therapy
CPT/HCPCS: 44180; S2900; 64468; 81025

== ENCOUNTER → 2024-10-26 | Outpatient (CLI) | payer OTHER ==
[2024-10-26 18:16] LABS: Basophils # (A) 0.04 X 10*3/uL (0.00-0.10); Basophils % (A) 0.8 %; Eosinophils # (A) 0.15 X 10*3/uL (0.04-0.35); Eosinophils % (A) 2.9 %; HCT 37.1 % (37.2-46.3); HGB 11.6 g/dL (12.0-15.0); Lymphocytes # (A) 1.19 X 10*3/uL (0.90-5.00); Lymphocytes % (A) 23.3 %; MCHC 31.3 g/dL (32.0-37.0); MCV 95.9 FL (80.0-97.0); Mean Platelet Volume 13.3 FL (9.5-12.2); Monocytes # (A) 0.34 X 10*3/uL (0.20-1.00); Monocytes % (A) 6.7 %; NRBC Per 100 WBC 0 X 10*3/uL (0.00-0.01); Neutrophils # (A) 3.38 X 10*3/uL (1.80-7.70); Neutrophils % (A) 66.1 %; Platelet Count 216 X 10*3/uL (140-440); RBC 3.87 X 10*6/uL (4.10-5.20); WBC 5.11 X 10*3/uL (4.50-10.00)
[2024-10-26 18:41] LABS: ALT 22 U/L (8-44); AST 20 U/L (13-35); Albumin 4.3 g/dL (3.8-4.9); Albumin/Globulin Ratio 2.53 Ratio (1.60-3.17); Alkaline Phosphatase 68 U/L (41-126); Blood Urea Nitrogen 9.2 mg/dL (9.0-27.0); Calcium 9.4 mg/dL (8.7-10.3); Carbon Dioxide 24.3 mmol/L (21.6-31.8); Chloride 108 mmol/L (96-109); Globulin 1.7 g/dL (1.6-3.3); Glucose 83 mg/dL (70-110); LDL Cholesterol,Calculated 82.6 mg/dL (0.0-131.0); Potassium 4.3 mmol/L (3.5-5.5); Sodium 143 mmol/L (135-145); T4, Free (Free Thyroxine) 0.97 ng/dL (0.80-1.80); Total Bilirubin 0.2 mg/dL (0.3-1.2); VLDL Calculation 11.58 mg/dL (5.00-40.00)
== END | disposition home or self-care (01) ==
LOC: LABWHC1 12:31
PROVIDERS: ATTEND Family Medicine
DX: J01.90 Acute sinusitis, unspecified (principal); R13.19 Other dysphagia; E03.9 Hypothyroidism, unspecified; E66.01 Morbid (severe) obesity due to excess calories; Z68.41 Body mass index [BMI] 40.0-44.9, adult
CPT/HCPCS: 36415; 80053; 80061; 83036; 83525; 84439; 84443; 85025

== ENCOUNTER → 2024-11-23 | Outpatient (CLI) | payer OTHER | END | disposition home or self-care (01) | LOC: LABWHC1 15:42 | PROVIDERS: ATTEND Psychiatry & Neurology Neurology | DX: I49.9 Cardiac arrhythmia, unspecified (principal) | CPT/HCPCS: 93005 ==